=== PATIENT | female | born 1945 | race African-American/Black ===

== ENCOUNTER 2017-02-08 04:31 | Inpatient (IN) | payer OTHER ==
[2017-02-08 04:58] VITALS: BMI 36.6
--- NOTE | 2017-02-08 05:19 | PDOC ---
History of Present Illness - History of Present Illness Initial Comments: 02/08/17 05:36 71 yo F with h/o right hip replacement, left knee replacement, OA, CVA, CKD-III , who presents with right leg pain. Pt. reports right sided lower extremity pain following fall at approximately 1500 ( 02/07). She was up attempting ambulation without assistve device and he she tripped and fell onto right side, landing on carpet. She was assisted up to wheelchair by nursing staff and has remained immobile for the remainder of the day. Fall was unwitnessed. She now complains of right ankle, knee, and hip pain worse with movement, pressure. Denies any new onset weakness, lightheadedness, fevers/chills, N/V, SOB, chest pain, complaints, abdominal complaints, numbness/tingling, neck pain, back pain, loss of bladder/bowel control, or urinary retention . Denies head trauma , or left sided pain.Reports that pain is refractory to medication. Has attempted analgesia with home [place]. Not on anticoagulants. <Wei Pineda - Last Filed: 02/08/17 07:07> <Mitesh Nunez - Last Filed: 02/08/17 19:42> - General Chief Complaint: Pain, Acute Stated Complaint: LEG PAIN Time Seen by Provider: 02/08/17 04:51 Past History - Past Medical History Anemia: No Asthma: No Cancer: Yes (LUNG 2011) Cardiac Disorders: No CVA: Yes ("MINOR" ) COPD: Yes (USES OXYGEN 2L/NC PRN) CHF: No Dementia: No Diabetes: Yes () GI Disorders: Yes (ACID REFLUX,COLITIS,ULCERS) Disorders: Yes (HAD SURGERY FOR KIDNEY STONES) HTN: Yes Hypercholesterolemia: No Liver Disease: No Seizures: No Thyroid Disease: Yes (PARTIAL THYROIDECTOMY 08/02,BENIGN NODULES) - Surgical History Abdominal Surgery: No Appendectomy: Yes Cardiac Surgery: No Cholecystectomy: Yes Lung Surgery: Yes (2012 RIGHT lobectomy for lung cancer,NO CHEMO OR RT) Neurologic Surgery: No Orthopedic Surgery: Yes (rt hip replacement 2009; BILATERAL knee arthroscopy) - Immunization History Immunization Up to Date: Yes - Psycho/Social/Smoking Cessation Hx Anxiety: Yes Suicidal Ideation: No Smoking Status: No Smoking History: Former smoker Have you smoked in the past 12 months: No Number of Cigarettes Smoked Daily: 0 If you are a former smoker, when did you quit?: 4 years ago Information on smoking cessation initiated: Yes Hx Alcohol Use: No Drug/Substance Use Hx: No Substance Use Type: None Hx Substance Use Treatment: No <Wei Pineda - Last Filed: 02/08/17 07:07> <Mitesh Nunez - Last Filed: 02/08/17 19:42> - Past Medical History Allergies/Adverse Reactions: Allergies Allergy/AdvReac Type Severity Reaction Status Date / Time Sulfa (Sulfonamide Allergy Severe Hives Verified 02/08/17 05:10 Antibiotics) Home Medications: Ambulatory Orders Amlodipine Besylate [Norvasc -] 2.5 mg PO DAILY 09/03/15 Ergocalciferol (Vitamin D2) [Drisdol] 50,000 units PO WEEKLY 09/03/15 Exenatide Microspheres [Bydureon] 2 mg SQ Q7D 09/03/15 Ferrous Sulfate [Feosol] 325 mg PO DAILY 09/03/15 Interferon Beta-1A [Avonex] 30 mcg IM WEEKLY 09/03/15 Omeprazole 20 mg PO DAILY 09/03/15 Potassium Chloride 10 meq PO DAILY 09/03/15 Sennosides [Senna] 8.6 mg PO DAILY PRN 09/03/15 Aspirin Coated [Ecotrin -] 81 mg PO DAILY #30 tablet.ec 09/10/15 Docusate Sodium [Colace -] 300 mg PO HS #30 capsule 09/10/15 Furosemide [Lasix -] 20 mg PO DAILY #30 tablet 09/10/15 Losartan Potassium [Cozaar -] 50 mg PO DAILY #30 tablet 09/10/15 Magnesium Oxide 400 mg PO BID #7 tablet 09/10/15 Pantoprazole Sodium [Protonix -] 40 mg PO DAILY #30 tablet.ec 09/10/15 Trazodone HCl [Desyrel -] 100 mg PO HS #30 tablet 09/10/15 Gabapentin [Neurontin -] 400 mg PO Q8H 01/09/17 Hydrocodone/Acetaminophen [[place] 10-325 Tablet] 1 each PO QID PRN #120 tablet MDD 4 01/09/17 Nateglinide [Starlix (Nf)] 120 mg PO TID 01/09/17 Review of Systems - Review of Systems Comments:: 02/08/17 05:46 GENERAL/CONSTITUTIONAL: No fever or chills. No weakness. HEAD, EYES, EARS, NOSE AND THROAT: No change in vision. No ear pain or discharge. No sore throat.- CARDIOVASCULAR: No chest pain or shortness of breath RESPIRATORY: No cough, wheezing, or hemoptysis. GASTROINTESTINAL: No nausea, vomiting, diarrhea or constipation. GENITOURINARY: No dysuria, frequency, or change in urination. MUSCULOSKELETAL: + Arthralgias and myalgias. No neck or back pain. SKIN: No rash NEUROLOGIC: No headache, vertigo, loss of consciousness, or change in strength/ sensation. ENDOCRINE: No increased thirst. No abnormal weight change HEMATOLOGIC/LYMPHATIC: No anemia, easy bleeding, or history of blood clots. ALLERGIC/IMMUNOLOGIC: No hives or skin allergy. <Wei Pineda - Last Filed: 02/08/17 07:07> *Physical Exam - Vital Signs Last Vital Signs Temp Pulse Resp BP Pulse Ox 98.1 F 93 H 18 165/86 96 02/08/17 04:45 02/08/17 04:45 02/08/17 04:45 02/08/17 04:45 02/08/17 04:45 - Physical Exam Comments: 02/08/17 05:46 GENERAL: Awake, alert, and fully oriented, in no acute distress HEAD: No signs of trauma, normocephalic, atraumatic EYES: PERRLA, EOMI, sclera anicteric, conjunctiva clear ENT: Auricles normal inspection, hearing grossly normal, nares patent, oropharynx clear without exudates. Moist mucosa NECK: Normal ROM, supple, no lymphadenopathy, JVD, or masses LUNGS: No distress, speaks full sentences, clear to auscultation bilaterally HEART: Regular rate and rhythm, normal S1 and S2, no murmurs, rubs or gallops, peripheral pulses normal and equal bilaterally. ABDOMEN: Soft, nontender, normoactive bowel sounds. No guarding, no rebound. No masses EXTREMITIES:+ 1+ Pitting edema of BL LE. Painful ttp at BL LE, and right sided hip joint. Unable to palpate LE pulses BL. Absent LE warmth and swelling. Unable to assess gross motor strength in LE d/t pain with movement. Decreased passive ROM d/t pain. Absent bony deformity visualized. Unable to visualize gait. NEUROLOGICAL: Cranial nerves II through XII grossly intact. Normal speech, normal gait, no focal sensorimotor deficits SKIN: Warm, Dry, normal turgor, no rashes or lesions noted. <Wei Pineda - Last Filed: 02/08/17 07:07> - Vital Signs Last Vital Signs Temp Pulse Resp BP Pulse Ox 98.1 F 74 17 148/72 95 02/08/17 11:39 02/08/17 11:39 02/08/17 15:12 02/08/17 11:39 02/08/17 15:12 <DorinaraMitesh - Last Filed: 02/08/17 19:42> Heart Score/ECG Review - Electrocardiogram EKG: Normal - [place]: Normal - QRS Poor R Wave Progression: No Q Wave Present: No - ST and T Early Repolarization: No Non Specific ST-T Wave changes: No - ECG Impressions Normal ECG: Yes <Wei Pineda - Last Filed: 02/08/17 07:07> ED Treatment Course - LABORATORY CBC & Chemistry Diagram: 02/08/17 05:20 02/08/17 05:20 <Wei Pineda - Last Filed: 02/08/17 07:07> - LABORATORY CBC & Chemistry Diagram: 02/08/17 05:20 02/08/17 05:20 - ADDITIONAL ORDERS Additional order review: Laboratory Results 02/08/17 07:40 Urine Color Yellow Urine Appearance Slcloudy Urine pH 6.0 Ur Specific [place] 1.015 Urine Protein Negative Urine Glucose (UA) Negative Urine Ketones Negative Urine Blood Negative Urine Nitrite Positive Urine Bilirubin Negative Urine Urobilinogen Negative Ur Leukocyte Esterase Trace Urine RBC None Urine WBC 3 Ur Epithelial Cells Rare Urine Bacteria Rare Urine Mucus Rare 02/08/17 05:20 RBC 4.37 MCV 84.0 MCHC 32.3 RDW 14.0 MPV 8.2 Neutrophils % Y Lymphocytes % Y - Medications Given in the ED: ED Medications Discontinued Medications Generic Name Dose Route Start Last Admin Trade Name Freq PRN Reason Stop Dose Admin Ceftriaxone Sodium 1 gm/ 100 mls @ 200 mls/hr 02/08/17 08:45 02/08/17 09:27 Dextrose IVPB 02/08/17 09:14 200 mls/hr ONCE ONE Administration Ketorolac Tromethamine 60 mg 02/08/17 05:21 02/08/17 05:41 Toradol Injection - IM 02/08/17 05:22 Not Given ONCE ONE Ketorolac Tromethamine 30 mg 02/08/17 05:36 02/08/17 05:41 Toradol Injection - IVPUSH 02/08/17 05:37 30 mg ONCE ONE Administration Morphine Sulfate 2 mg 02/08/17 07:42 02/08/17 07:57 Morphine Injection - IM 02/08/17 07:43 2 mg ONCE ONE Administration Oxycodone/Acetaminophen 1 combo 02/08/17 11:03 02/08/17 15:29 Percocet 5/325 - PO 02/08/17 11:04 Not Given ONCE STA Oxycodone/Acetaminophen 2 combo 02/08/17 12:10 02/08/17 13:53 Percocet 5/325 - PO 02/08/17 12:11 2 combo ONCE STA Administration <Mitesh Nunez - Last Filed: 02/08/17 19:42> Medical Decision Making - Medical Decision Making 02/08/17 05:50 71 yo F with h/o right hip replacment, left knee replacement, OA, CVA, CKD-III, who presents with right leg pain. Pt. reports right sided ankle, knee, and hip pain following fall at approximately 1500 ( 02/07). No other associated symptoms. Denies head/back trauma or pain. Physical exam was limited d/t pain. Decreased right sided LE passive ROM, with absent bony deformity. Denies anticoagulation. ED Course: - CBC, CMP, PT/INR, UA - EKG - RAD Left Ankle/Foot, Knee, Hip. - Toradol 30 mg IV 02/08/17 06:07 CBC: 18.4 WBC CMP: Unremarkable 02/08/17 06:16 EKG: NSR 02/08/17 07:[address] Perez <Wei Pineda - Last Filed: 02/08/17 07:07> *DC/Admit/Observation/Transfer <Wei Pineda - Last Filed: 02/08/17 07:07> <Mitesh Nunez - Last Filed: 02/08/17 19:42> Diagnosis at time of Disposition: Leukocytosis - Discharge Dispostion Condition at time of disposition: Stable
[2017-02-08] MEDS ORDERED: KETOROLAC TROMETHAMINE 60 MG/2 ML VIAL IM ONE (05:21)
[2017-02-08] MEDS ORDERED: KETOROLAC TROMETHAMINE 30 MG/1 ML VIAL ONE (05:36)
[2017-02-08] MEDS ORDERED: KETOROLAC TROMETHAMINE 30 MG/1 ML VIAL IVPUSH ONE (05:36)
[2017-02-08 05:40] LABS: MCH 27.1 pg (25.7-33.7); MCHC 32.3 g/dl (32.0-36.0); MEAN PLT VOLUME 8.2 fl (7.5-11.1); PLATELET COUNT 403 K/MM3 (134-434); WHITE BLOOD COUNT 18.4 K/mm3 (4.0-10.0)
[2017-02-08 06:03] LABS: INR 1.12 (0.82-1.09); PROTHROMBIN TIME (PATIENT) 12.3 SEC (9.98-11.88)
[2017-02-08 06:06] LABS: ALBUMIN 3.4 g/dl (3.4-5.0); ANION GAP 6 (8-16); BILIRUBIN,TOTAL 0.5 mg/dL (0.2-1.0); CO2 28 mmol/L (21-32); GLUCOSE,RANDOM 113 mg/dL (74-106); SGPT/ALT 41 U/L (12-78); TOT PROT 7.1 g/dl (6.4-8.2)
[2017-02-08 06:07] LABS: ALK PHOS 137 U/L (45-117)
[2017-02-08 06:09] LABS: SGOT/AST 57 U/L (15-37)
--- NOTE | 2017-02-08 06:09 | PDOC ---
Attending Attestation - Resident Resident Name: Wei Pineda - ED Attending Attestation I have performed the following: I have examined & evaluated the patient, The case was reviewed & discussed with the resident, I agree w/resident's findings & plan, Exceptions are as noted - HPI HPI: 02/08/17 06:16 Pt s/p fall c/o pain to left knee and ankle. fall was non-syncopal. - Physicial Exam PE: 02/08/17 06:17 *Physical Exam General Appearance: Yes: Appropriately Dressed. No: Apparent Distress, Intoxicated HEENT: positive: EOMI, KAYLEE, Normal ENT Inspection, Normal Voice, TMs Normal, Pharynx Normal. negative: Pale Conjunctivae, Photophobia, Scleral Icterus (R), Scleral Icterus (L) Neck: positive: Trachea midline, Normal Thyroid, Supple. negative: Tender, Rigid, Carotid bruit, Stridor, Lymphadenopathy (R), Lymphadenopathy (L), Thyromegaly Respiratory/Chest: positive: Lungs Clear, Normal Breath Sounds. negative: Chest Tender, Respiratory Distress, Accessory Muscle Use, Labored Respiration, RES, Crackles, Rales, Rhonchi, Stridor, Wheezing, Dullness Cardiovascular: positive: Regular Rhythm, Regular Rate, S1, S2. negative: Edema , JVD, Murmur, Bradycardia, Tachycardia Vascular Pulses: Dorsalis-Pedis (R): 2+, Doralis-Pedis (L): 2+ Gastrointestinal/Abdominal: positive: Normal Bowel Sounds, Flat, Soft. negative : Tender, Organomegaly, Pulsatile Mass, Increased Bowel Sounds, Decreased BS, Distended, Guarding, Rebound, Hernia, Hepatomegaly, Spleenomegaly Lymphatic: negative: Adenopathy, Tenderness Musculoskeletal: positive: tenderness and swelling to lefl knee and ankle. negative: CVA Tenderness, Decreased Range of Motion Extremity: positive: Normal Capillary Refill, Normal Inspection, Normal Range of Motion, Pelvis Stable. negative: Tender, Pedal Edema, Swelling, Erythema Integumentary: positive: Normal Color, Dry, Warm. negative: Cyanotic, Erythema , Jaundice, Rash Neurologic: positive: house nurse II-XII NML intact, Fully Oriented, Alert, Normal Mood/ Affect, Motor Strength 5/5. negative: EOM Palsy, Facial Droop, Sensory Deficit - Medical Decision Making 02/08/17 06:20 Pt pending official read of films.
--- NOTE | 2017-02-08 07:24 | PDOC ---
*Physical Exam - Vital Signs Last Vital Signs Temp Pulse Resp BP Pulse Ox 98.1 F 93 H 18 165/86 96 02/08/17 04:45 02/08/17 04:45 02/08/17 04:45 02/08/17 04:45 02/08/17 04:45 - Physical Exam General Appearance: Yes: Nourished, Obese Neck: positive: Trachea midline, Supple Extremity: positive: Other (B/L LE edema, 4+ on L, 2+ on R) ED Treatment Course - LABORATORY CBC & Chemistry Diagram: 02/09/17 06:00 02/09/17 06:15 - ADDITIONAL ORDERS Additional order review: Laboratory Results 02/08/17 02/08/17 05:20 05:20 INR 1.12 Sodium 138 Potassium 4.5 Chloride 104 Carbon Dioxide 28 Anion Gap 6 L BUN 10 D Creatinine 1.0 Creat Clearance w eGFR 54.66 Random Glucose 113 H D Calcium 9.0 Total Bilirubin 0.5 D AST 57 H D ALT 41 D Alkaline Phosphatase 137 H Total Protein 7.1 Albumin 3.4 02/08/17 05:20 RBC 4.37 MCV 84.0 MCHC 32.3 RDW 14.0 MPV 8.2 Neutrophils % Y Lymphocytes % Y - Medications Given in the ED: ED Medications Discontinued Medications Generic Name Dose Route Start Last Admin Trade Name Saeq PRN Reason Stop Dose Admin Ketorolac Tromethamine 60 mg 02/08/17 05:21 02/08/17 05:41 Toradol Injection - IM 02/08/17 05:22 Not Given ONCE ONE Ketorolac Tromethamine 30 mg 02/08/17 05:36 02/08/17 05:41 Toradol Injection - IVPUSH 02/08/17 05:37 30 mg ONCE ONE Administration Medical Decision Making - Medical Decision Making 02/08/17 07:24 Patient's CBC significant for leukocytosis (WBC 18.4). UA pending. On PE, patient has B/L LE edema with L > R and patient c/o significant LLE pain , including calf pain, concern for DVT. B/L Doppler U/S ordered. 02/08/17 08:56 Review of patient MAR, shows patient is on Interferon, patient is limited historian, unable to provide information as to her disease. Paged Dr. De Leon ( patient's PCP) who noted that patient has a h/o MS for which she takes Interferon and is under the care of a neurologist. 02/08/17 09:03 Patient's UA Nitrite positive; started on IV Ceftriaxone. Patient admitted to inpatient medicine service under Dr. Menchaca. *DC/Admit/Observation/Transfer Diagnosis at time of Disposition: Leukocytosis - Discharge Dispostion Condition at time of disposition: Stable Admit: Yes - Referrals
[2017-02-08] MEDS ORDERED: morphine CARPU-JECT 2 MG/1 ML DISP.SYRIN IM ONE (07:42)
[2017-02-08] MEDS ORDERED: morphine CARPU-JECT 2 MG/1 ML DISP.SYRIN ONE (07:50)
[2017-02-08 07:53] LABS: URINE APPEARANCE SLCLOUDY; URINE BILIRUBIN NEGATIVE (NEGATIVE); URINE BLOOD NEGATIVE (NEGATIVE); URINE COLOR YELLOW; URINE GLUCOSE (UA) NEGATIVE (NEGATIVE); URINE KETONE NEGATIVE (NEGATIVE); URINE LEUK ESTERASE TRACE (NEGATIVE); URINE NITRITE POSITIVE (NEGATIVE); URINE PROTEIN NEGATIVE (NEGATIVE); URINE UROBILINOGEN NEGATIVE mg/dL (0.2-1.0)
[2017-02-08 08:08] LABS: URINE BACTERIA RARE /hpf (NONE SEEN); URINE MUCUS RARE; URINE WBC 3 /hpf (3-5)
[2017-02-08] MEDS ORDERED: CEFTRIAXONE 1 GM in DEXTROSE 5%-WATER - 100 ML IVPB ONE (08:45)
[2017-02-08 09:00] LABS: PLATELET ESTIMATE ADEQUATE (NORMAL); TOTAL CELLS COUNTED 100
[2017-02-08 09:01] LABS: METAMYELOCYTE 1 % (0-2); MYELOCYTE 1 % (0-2)
[2017-02-08] MEDS ORDERED: CEFTRIAXONE 50 ML ONE (09:24)
--- NOTE | 2017-02-08 11:10 | EKG ---
Test Reason : Blood Pressure : / mmHG Vent. Rate : 077 BPM Atrial Rate : 077 BPM P-R Int : 130 ms QRS Dur : 084 ms QT Int : 398 ms P-R-T Axes : 084 072 069 degrees QTc Int : 450 ms NORMAL SINUS RHYTHM NORMAL ECG WHEN COMPARED WITH ECG OF 03-SEP-2015 14:40, ST NO LONGER ELEVATED IN LATERAL LEADS T WAVE INVERSION NOW EVIDENT IN ANTERIOR LEADS QT HAS LENGTHENED Confirmed by NEMO ALMEIDA, DREW ([id number]) on 02/08/2017 11:10:29 AM Referred By: Confirmed By:DREW CHESTER MD
--- NOTE | 2017-02-08 11:55 | HP ---
Admitting History and Physical - Primary Care Physician PCP: Bran De Leon (Annabi,Iyad) - Admission Chief Complaint: s/p Fall, UTI History of Present Illness: becky Calderon 71 yo female came into [facility] ER S/P unwitnessed fall at home. upon questions, she states she was trying to go from her bedroom to her electric wheelchair early in the morning, when her left knee buckled and she fell. She aj hitting her head but complains of severe Left leg pain. She lives at home alone but has [employer] OPER[employer] 8 hours/ day 7 days/week. She was assisted by her HONE OPERATOR after the fall. Denies any new onset weakness, lightheadedness, fevers/chills, N/V, SOB, chest pain, complaints, abdominal complaints, numbness/tingling, neck pain, back pain, loss of bladder/bowel control, or urinary retention. PCP: Bran De Leon - Past Medical History SILK PRESSER: Yes: 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 Cardiovascular: Yes: HTN Pulmonary: Yes: Asthma, COPD Gastrointestinal: Yes: GERD (using walker at home ) Renal/: Yes: Renal Failure (chronic) Psych: Yes: Depression Musculoskeletal: Yes: Osteoarthritis, Other (DDD) Rheumatology: Yes: Rheumatoid Arthritis Endocrine: Yes: Diabetes Mellitus Additional Past Medical History: Obesity - Past Surgical History Past Surgical History: Yes: Cholecystectomy, Hysterectomy, Joint Replacement ( prior left knee total replacement, Total hip replacement) - Smoking History Smoking history: Former smoker Have you smoked in the past 12 months: No Aproximately how many cigarettes per day: 0 If you are a former smoker, when did you quit?: 4 years ago - Alcohol/Substance Use Hx Alcohol Use: No History of Substance Use: reports: None - Social History ADL: Independent History of Recent Travel: No Home Medications - Allergies Allergies/Adverse Reactions: Allergies Allergy/AdvReac Type Severity Reaction Status Date / Time Sulfa (Sulfonamide Allergy Severe Hives Verified 02/08/17 05:10 Antibiotics) - Home Medications Home Medications: Ambulatory Orders Amlodipine Besylate [Norvasc -] 2.5 mg PO DAILY 09/03/15 Ergocalciferol (Vitamin D2) [Drisdol] 50,000 units PO WEEKLY 09/03/15 Exenatide Microspheres [Bydureon] 2 mg SQ Q7D 09/03/15 Ferrous Sulfate [Feosol] 325 mg PO DAILY 09/03/15 Interferon Beta-1A [Avonex] 30 mcg IM WEEKLY 09/03/15 Omeprazole 20 mg PO DAILY 09/03/15 Potassium Chloride 10 meq PO DAILY 09/03/15 Sennosides [Senna] 8.6 mg PO DAILY PRN 09/03/15 Aspirin Coated [Ecotrin -] 81 mg PO DAILY #30 tablet.ec 09/10/15 Docusate Sodium [Colace -] 300 mg PO HS #30 capsule 09/10/15 Furosemide [Lasix -] 20 mg PO DAILY #30 tablet 09/10/15 Losartan Potassium [Cozaar -] 50 mg PO DAILY #30 tablet 09/10/15 Magnesium Oxide 400 mg PO BID #7 tablet 09/10/15 Pantoprazole Sodium [Protonix -] 40 mg PO DAILY #30 tablet.ec 09/10/15 Trazodone HCl [Desyrel -] 100 mg PO HS #30 tablet 09/10/15 Gabapentin [Neurontin -] 400 mg PO Q8H 01/09/17 Hydrocodone/Acetaminophen [[place] 10-325 Tablet] 1 each PO QID PRN #120 tablet MDD 4 01/09/17 Nateglinide [Starlix (Nf)] 120 mg PO TID 01/09/17 Family Disease History - Family Disease History Family Disease History: CA: Mother (cancer), Other: Brother (pain - arthritis) Review of Systems - Review of Systems Constitutional: reports: Weakness Eyes: reports: No Symptoms HENT: reports: No Symptoms Neck: reports: No Symptoms Cardiovascular: reports: No Symptoms Respiratory: reports: No Symptoms Gastrointestinal: reports: No Symptoms Genitourinary: reports: No Symptoms Breasts: reports: No Symptoms Reported Musculoskeletal: reports: Back Pain, Extremity Pain (LLE), Joint Pain Integumentary: reports: No Symptoms Neurological: reports: No Symptoms Endocrine: reports: No Symptoms Hematology/Lymphatic: reports: No Symptoms Psychiatric: reports: No Symptoms Physical Examination Vital Signs: Vital Signs Temperature 98.1 F 02/08/17 04:45 Pulse Rate 82 02/08/17 07:58 Respiratory Rate 17 02/08/17 07:58 Blood Pressure 143/62 02/08/17 07:58 O2 Sat by Pulse Oximetry (%) 95 02/08/17 07:58 Constitutional: Yes: Well Nourished, No Distress, Anxious Cardiovascular: Yes: Regular Rate and Rhythm Respiratory: Yes: Regular Gastrointestinal: Yes: Normal Bowel Sounds Musculoskeletal: Yes: WNL Peripheral Pulses WNL: No Neurological: Yes: Alert, Oriented Psychiatric: Yes: Alert, Oriented Imaging - Results Chest X-ray: Report Reviewed X-ray: Report Reviewed Problem List - Problems (1) Leukocytosis Assessment/Plan: -likely secondary to UTI -IV abx -ID on board -BC/UC pending Code(s): D72.829 - ELEVATED WHITE BLOOD CELL COUNT, UNSPECIFIED (2) Diabetes Assessment/Plan: -endocrinology consult -on insulin sliding scale -labs in AM Code(s): E11.9 - TYPE 2 DIABETES MELLITUS WITHOUT COMPLICATIONS Qualifiers: Diabetes mellitus type: type 2 (3) Fall at home Assessment/Plan: -production material handler eval -physical therapy Code(s): W19.XXXA - UNSPECIFIED FALL, INITIAL ENCOUNTER Y92.099 - UNSP PLACE IN OTH NON-INSTITUTIONAL RESIDENCE PLACE (4) UTI (urinary tract infection) Assessment/Plan: -IV abc UA positive for nitrites -UC pending Code(s): N39.0 - URINARY TRACT INFECTION, SITE NOT SPECIFIED
[2017-02-08] MEDS ORDERED: FUROSEMIDE 40 MG TABLET (FP) ONE (13:45)
[2017-02-08] MEDS ORDERED: ASPIRIN 81 MG CHEWABLE TABLETS ONE (13:45)
[2017-02-08] MEDS ORDERED: PANTOPRAZOLE 40 MG TABLET (FP) ONE (13:47)
[2017-02-08] MEDS ORDERED: MAGNESIUM OXIDE 400 MG TABLET (FP) ONE (13:48)
[2017-02-08] MEDS ORDERED: amLODIPine BESYLATE 5 MG TABLET (FP) ONE (13:48)
[2017-02-08] MEDS ORDERED: FERROUS SO4 325 MG TABLET (FP) ONE (13:49)
[2017-02-08] MEDS ORDERED: LOSARTAN POTASSIUM 25 MG TABLET ONE (13:49)
[2017-02-08] MEDS ORDERED: GABAPENTIN 100 MG CAPSULE (FP) ONE (13:49)
[2017-02-08] MEDS ORDERED: HEPARIN NA (PORCINE) 5,000 UNITS/ML 1ML VIAL ONE (13:49)
[2017-02-08] MEDS: MAGNESIUM OXIDE 400 MG TABLET (FP) PO SCH ×2 (13:51→21:39)
[2017-02-08] MEDS: PANTOPRAZOLE 40 MG TABLET (FP) PO SCH (13:52)
[2017-02-08] MEDS: ASPIRIN COATED 81 MG TABLET.EC PO SCH (13:55)
[2017-02-08] MEDS: GABAPENTIN 400 MG CAPSULE (FP) PO SCH ×3 (13:56→21:39)
[2017-02-08] MEDS: amLODIPine BESYLATE 2.5 MG TABLET (FP) PO SCH (13:56)
[2017-02-08] MEDS: FUROSEMIDE 20 MG TABLET (FP) PO SCH (13:56)
[2017-02-08] MEDS: HEPARIN NA (PORCINE) 5,000 UNITS/ML 1ML VIAL SQ SCH ×2 (13:56→21:47)
[2017-02-08] MEDS: LOSARTAN POTASSIUM 50 MG TABLET (FP) PO SCH (13:57)
[2017-02-08] MEDS: FERROUS SO4 325 MG TABLET (FP) PO SCH (13:57)
[2017-02-08] MEDS: PANTOPRAZOLE 20 MG TABLET (FP) PO SCH (13:57)
[2017-02-08] MEDS: POTASSIUM CHLORIDE TABS 10 MEQ TABLET.ER (FP) PO SCH (13:58)
[2017-02-08] MEDS ORDERED: POTASSIUM CHLORIDE TABS 10 MEQ TABLET.ER (FP) ONE (14:34)
--- NOTE | 2017-02-08 14:44 | PN ---
Progress Note (short form) - Note Progress Note: ID Consult dictated S/P mechanical fall Leukocytosis R/O sepsis Pending sepsis workup empiric ceftriaxone
--- NOTE | 2017-02-08 15:58 | CONS ---
DATE OF CONSULTATION: 02/08/2017 The patient is a 71-year-old female with a history of multiple sclerosis, history of right total hip replacement and left total knee replacement, evaluated for leukocytosis. The patient was at home, when she was attempting to ambulate. She sustained a mechanical fall, resulting injury to the left side of her body. She states that she was trying to go from her bedroom to her electric wheelchair, her knee buckled and she fell. She denied any head trauma or loss of consciousness. She presented to the emergency room, where x-rays were done. X-ray of the right hip revealed an intact right total hip replacement. No gross fracture was noted in the left hip. As part of her admitting labs, she was noted to have an elevated white blood cell count of 18,000. She complains of left lower extremity pain. In addition, she complains of some lower abdominal pain. She denies any dysuria or hematuria. She denies any chest pain, shortness of breath, cough, or sputum production. No vomiting or diarrhea. Past medical history positive for multiple sclerosis, hypertension, diabetes, history of lung cancer, osteoarthritis, stroke, chronic kidney disease. PAST SURGICAL HISTORY: Status post right total hip replacement, left total knee replacement, partial hysterectomy, right lung lobectomy, cholecystectomy, hysterectomy. Allergies to SULFA. Medications include Norvasc, Feosol, Avonex, omeprazole, aspirin, Lasix, Cozaar, Protonix, Starlix. SOCIAL HISTORY: Resides at home. Former smoker. She has a wheelchair at home. Last hospitalization was in August of 2015. SYSTEMS REVIEW: Neurologic: Positive for multiple sclerosis. Cardiac: Negative chest pain or palpitations. Respiratory: Negative cough or sputum production. Gastrointestinal: Negative vomiting or diarrhea. Genitourinary: Negative for urinary tract infection. LABORATORY DATA: White count 18.4, hematocrit 36.7, platelet count 403. BUN 10, creatinine 1.0, total bilirubin 0.5, alkaline phosphatase 137, AST 57. Urinalysis: 3 white cells. Chest x-ray pending. PHYSICAL EXAMINATION: General: She is awake and alert. She is obese, in no acute distress. Vital Signs: Temperature 98.1. Blood pressure 165/86. Pulse 82, regular. Respirations 18 per minute. Eyes: Sclerae anicteric. Heart Sounds: S1, S2. Lungs: Clear. Poor inspiratory effort. Abdomen: Soft. There is lower abdominal tenderness to palpation. No flank tenderness. Extremities: Positive for edema. The left lower extremity appears to be shortened and externally rotated, tender to manipulation. No calf tenderness is noted. IMPRESSION: 1. Status post mechanical fall with history of joint replacements. 2. Leukocytosis, possible sepsis. 3. Multiple sclerosis. Await culture results. Obtain urine culture, chest x-ray. Empiric antibiotic coverage for possible sepsis, secondary to urinary tract, with ceftriaxone 2 g IV piggyback daily. On review of previous cultures, patient had a bunch-sensitive E coli present in the urine in February 2016, as well as a bunch-resistant Pseudomonas in the urine from August of 2015. MARGARITA NOBLE M.D. [id number]
[2017-02-08] MEDS: oxyCODONE HCL 5 MG TABLET PO PRN ×2 (17:47→21:38)
[2017-02-08] MEDS ORDERED: INSULIN (NOVOLOG) ASPART 100 UNITS/ML 10ML VIAL ONE (18:30)
--- NOTE | 2017-02-08 18:37 | CONSULT ---
Consult Consult Specialty:: ENDOCRINE Referred by:: KASSANDRA WEEKS NP Reason for Consultation:: DIABETES MELLITUS - History of Present Illness Chief Complaint: FALL AT HOME History of Present Illness: 71 yo F with h/o right hip replacement, left knee replacement, OA, CVA, CKD-III , who presents with right leg pain. Pt. reports right sided lower extremity pain following fall at approximately 1500 ( 02/07). She was up attempting ambulation without assistve device and he she tripped and fell onto right side, landing on carpet. She was assisted up to wheelchair by nursing staff and has remained immobile for the remainder of the day. Fall was unwitnessed. Has history of previous fall,chronic back pain on pain medication,denies hypoglycemia - History Source History Provided By: Patient - Past Medical History FLAME CUTTER: Yes: 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 Cardio/Vascular: Yes: HTN Pulmonary: Yes: Asthma, COPD Gastrointestinal: Yes: GERD (using walker at home ) Renal/: Yes: Renal Failure (chronic) ...: No Psych: Yes: Depression Musculoskeletal: Yes: Osteoarthritis, Other (DDD) Rheumatology: Yes: Rheumatoid Arthritis Endocrine: Yes: Diabetes Mellitus Additional Medical History: as in HPI, morbidly obese - Past Surgical History Past Surgical History: Yes: Cholecystectomy, Hysterectomy, Joint Replacement ( prior left knee total replacement, Total hip replacement) - Alcohol/Substance Use Hx Alcohol Use: No History of Substance Use: reports: None - Smoking History Smoking history: Former smoker Have you smoked in the past 12 months: No Aproximately how many cigarettes per day: 0 If you are a former smoker, when did you quit?: 4 years ago - Social History Usual Living Arrangement: With Significant Other ADL: Independent History of Recent Travel: No Home Medications - Allergies Allergies/Adverse Reactions: Allergies Allergy/AdvReac Type Severity Reaction Status Date / Time Sulfa (Sulfonamide Allergy Severe Hives Verified 02/08/17 05:10 Antibiotics) - Home Medications Home Medications: Ambulatory Orders Amlodipine Besylate [Norvasc -] 2.5 mg PO DAILY 09/03/15 Ergocalciferol (Vitamin D2) [Drisdol] 50,000 units PO WEEKLY 09/03/15 Exenatide Microspheres [Bydureon] 2 mg SQ Q7D 09/03/15 Ferrous Sulfate [Feosol] 325 mg PO DAILY 09/03/15 Interferon Beta-1A [Avonex] 30 mcg IM WEEKLY 09/03/15 Omeprazole 20 mg PO DAILY 09/03/15 Potassium Chloride 10 meq PO DAILY 09/03/15 Sennosides [Senna] 8.6 mg PO DAILY PRN 09/03/15 Aspirin Coated [Ecotrin -] 81 mg PO DAILY #30 tablet.ec 09/10/15 Docusate Sodium [Colace -] 300 mg PO HS #30 capsule 09/10/15 Furosemide [Lasix -] 20 mg PO DAILY #30 tablet 09/10/15 Losartan Potassium [Cozaar -] 50 mg PO DAILY #30 tablet 09/10/15 Magnesium Oxide 400 mg PO BID #7 tablet 09/10/15 Pantoprazole Sodium [Protonix -] 40 mg PO DAILY #30 tablet.ec 09/10/15 Trazodone HCl [Desyrel -] 100 mg PO HS #30 tablet 09/10/15 Gabapentin [Neurontin -] 400 mg PO Q8H 01/09/17 Hydrocodone/Acetaminophen [[place] 10-325 Tablet] 1 each PO QID PRN #120 tablet MDD 4 01/09/17 Nateglinide [Starlix (Nf)] 120 mg PO TID 01/09/17 Family Disease History - Family Disease History Family Disease History: CA: Mother (cancer), Other: Brother (pain - arthritis) Review of Systems - Review of Systems Constitutional: reports: Lethargy Eyes: reports: No Symptoms HENT: reports: No Symptoms Neck: reports: Decreased ROM Cardiovascular: reports: Palpitations, Shortness of Breath Respiratory: reports: Exercise Intolerance, SOB, SOB on Exertion Gastrointestinal: reports: Constipation, Nausea Genitourinary: reports: No Symptoms Breasts: reports: No Symptoms Reported Musculoskeletal: reports: Extremity Pain, Joint Swelling, Muscle Pain, Muscle Cramps Integumentary: reports: No Symptoms Neurological: reports: Unsteady Gait, Weakness Endocrine: reports: Increased Hunger Physical Exam Vital Signs: Vital Signs Temperature 98.1 F 02/08/17 11:39 Pulse Rate 74 02/08/17 11:39 Respiratory Rate 02/08/17 15:12 Blood Pressure 148/72 02/08/17 11:39 O2 Sat by Pulse Oximetry (%) 95 02/08/17 15:12 Constitutional: Yes: Anxious Eyes: Yes: EOM Intact HENT: Yes: Normocephalic Neck: Yes: Trachea Midline Cardiovascular: Yes: Regular Rate and Rhythm Respiratory: Yes: CTA Bilaterally Gastrointestinal: Yes: Normal Bowel Sounds ...Rectal Exam: Yes: Deferred Renal/: Yes: WNL Breast(s): Yes: WNL Musculoskeletal: Yes: Back Pain, Joint Stiffness, Joint Swelling, Muscle Pain, Muscle Weakness Extremities: Yes: WNL Edema: LLE: 1+, RLE: 1+ Neurological: Yes: Alert, Oriented Problem List - Problems (1) Anxiety and depression Code(s): F41.9 - ANXIETY DISORDER, UNSPECIFIED F32.9 - MAJOR DEPRESSIVE DISORDER, SINGLE EPISODE, UNSPECIFIED (2) Anxiety disorder Code(s): F41.9 - ANXIETY DISORDER, UNSPECIFIED Qualifiers: 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 Assessment/Plan Current Active Problems Fall at home (Acute) Leukocytosis (Acute) UTI (urinary tract infection) (Acute) diabetes mellitus hyperglycemia htn \ashd osteoarthritis chronic pain Abnormal Lab Results 02/08/17 02/08/17 05:20 05:20 WBC 18.4 H D Anion Gap 6 L Random Glucose 113 H D AST 57 H D Alkaline Phosphatase 137 H Laboratory Results - last 24 hr 02/08/17 02/08/17 02/08/17 05:20 05:20 05:20 WBC 18.4 H D RBC 4.37 Hgb 11.8 Hct 36.7 MCV 84.0 MCH 27.1 MCHC 32.3 RDW 14.0 Plt Count 403 MPV 8.2 Total Counted 100 Neutrophils % Y Neutrophils % (Manual) 74 Lymphocytes % Y Lymphocytes % (Manual) 16 Monocytes % (Manual) 8 Myelocytes % (Man) 1 Platelet Estimate Adequate INR 1.12 Sodium 138 Potassium 4.5 Chloride 104 Carbon Dioxide 28 Anion Gap 6 L BUN 10 D Creatinine 1.0 Creat Clearance w eGFR 54.66 POC Glucometer Random Glucose 113 H D Calcium 9.0 Total Bilirubin 0.5 D AST 57 H D ALT 41 D Alkaline Phosphatase 137 H Total Protein 7.1 Albumin 3.4 Urine Color Urine Appearance Urine pH Ur Specific Catron Urine Protein Urine Glucose (UA) Urine Ketones Urine Blood Urine Nitrite Urine Bilirubin Urine Urobilinogen Ur Leukocyte Esterase Urine RBC Urine WBC Ur Epithelial Cells Urine Bacteria Urine Mucus 02/08/17 02/08/17 07:40 16:41 WBC RBC Hgb Hct MCV MCH MCHC RDW Plt Count MPV Total Counted Neutrophils % Neutrophils % (Manual) Lymphocytes % Lymphocytes % (Manual) Monocytes % (Manual) Myelocytes % (Man) Platelet Estimate INR Sodium Potassium Chloride Carbon Dioxide Anion Gap BUN Creatinine Creat Clearance w eGFR POC Glucometer 85 Random Glucose Calcium Total Bilirubin AST ALT Alkaline Phosphatase Total Protein Albumin Urine Color Yellow Urine Appearance Slcloudy Urine pH 6.0 Ur Specific Catron 1.015 Urine Protein Negative Urine Glucose (UA) Negative Urine Ketones Negative Urine Blood Negative Urine Nitrite Positive Urine Bilirubin Negative Urine Urobilinogen Negative Ur Leukocyte Esterase Trace Urine RBC None Urine WBC 3 Ur Epithelial Cells Rare Urine Bacteria Rare Urine Mucus Rare plan: bgm novolog scale coverage [id number] [id number] Current Medications Generic Name Dose Route Start Last Admin Trade Name Freq PRN Reason Stop Dose Admin Acetaminophen 650 mg 02/08/17 16:35 Tylenol - PO Q4H PRN FEVER OR PAIN Amlodipine Besylate 2.5 mg 02/08/17 11:15 02/08/17 13:56 Norvasc - PO 2.5 mg DAILY ROSALIE Administration Aspirin 81 mg 02/08/17 11:15 02/08/17 13:55 Ecotrin - PO 81 mg DAILY ROSALIE Administration Docusate Sodium 300 mg 02/08/17 22:00 Colace - PO HS ROSALIE Ferrous Sulfate 325 mg 02/08/17 12:15 02/08/17 13:57 Feosol - PO 325 mg DAILY ROSALIE Administration Furosemide 20 mg 02/08/17 11:15 02/08/17 13:56 Lasix - PO 20 mg DAILY ROSALIE Administration Gabapentin 400 mg 02/08/17 11:15 02/08/17 14:04 Neurontin - PO Not Given TID ROSALIE Heparin Sodium (Porcine) 5,000 unit 02/08/17 11:45 02/08/17 13:56 Heparin - SQ 5,000 unit BID ROSALIE Administration Ceftriaxone Sodium 2 gm/ 100 mls @ 200 mls/hr 02/09/17 10:00 Dextrose IVPB DAILY [facility] Insulin Aspart 1 vial 02/08/17 22:00 Novolog Vial Sliding Scale - SQ ACHS [facility] Protocol Losartan Potassium 50 mg 02/08/17 12:15 02/08/17 13:57 Cozaar - PO 50 mg DAILY ROSALIE Administration Magnesium Oxide 400 mg 02/08/17 12:15 02/08/17 13:51 Mag-Ox - PO 400 mg BID ROSALIE Administration Non-Formulary Medication 120 mg 02/08/17 16:30 Nateglinide PO TIDAC ROSALIE Oxycodone HCl 10 mg 02/08/17 16:35 02/08/17 17:47 Roxicodone - PO 10 mg Q4H PRN Administration Pantoprazole Sodium 20 mg 02/08/17 12:15 02/08/17 13:57 Protonix - PO 20 mg DAILY ROSALIE Administration Pantoprazole Sodium 40 mg 02/08/17 12:15 02/08/17 13:52 Protonix - PO 40 mg DAILY ROSALIE Administration Potassium Chloride 10 meq 02/08/17 12:30 02/08/17 13:58 K-Dur - PO 10 meq DAILY ROSALIE Administration Senna 1 tab 02/08/17 11:04 Senna - PO DAILY PRN CONSTIPATION Trazodone HCl 100 mg 02/08/17 22:00 Desyrel - PO HS ROSALIE
[2017-02-08] MEDS: traZODone HCL 50 MG TABLET (FP) PO SCH (21:38)
[2017-02-08] MEDS: DOCUSATE SODIUM 100 MG CAPSULE (FP) PO SCH (21:39)
[2017-02-08] MEDS: INSULIN SLIDING SCALE (NOVOLOG) 1 VIAL SQ SCH (21:44)
[2017-02-09] MEDS: oxyCODONE HCL 5 MG TABLET PO PRN ×5 (01:55→18:57)
[2017-02-09] MEDS: GABAPENTIN 400 MG CAPSULE (FP) PO SCH ×3 (06:13→21:13)
[2017-02-09] MEDS: INSULIN SLIDING SCALE (NOVOLOG) 1 VIAL SQ SCH (06:13)
[2017-02-09 07:31] LABS: EOSINOPHIL 0.9 % (0-4.5); MCHC 32.1 g/dl (32.0-36.0); MEAN CELL VOLUME 83.9 fl (80-96); MEAN PLT VOLUME 8.3 fl (7.5-11.1); NEUTROPHILS 68.4 % (42.8-82.8); RDW 13.9 % (11.6-15.6); WHITE BLOOD COUNT 17.4 K/mm3 (4.0-10.0)
[2017-02-09 08:05] LABS: ALK PHOS 133 U/L (45-117); ANION GAP 9 (8-16); BILIRUBIN,TOTAL 0.7 mg/dL (0.2-1.0); CALCIUM 8.4 mg/dL (8.5-10.1); CO2 28 mmol/L (21-32); CREATININE 1.2 mg/dL (0.55-1.02); GLUCOSE,RANDOM 119 mg/dL (74-106); SGOT/AST 30 U/L (15-37); SGPT/ALT 32 U/L (12-78); TOT PROT 6.5 g/dl (6.4-8.2)
[2017-02-09] MEDS ORDERED: DEXTROSE 5%-WATER 100 ML IVPB ONE (09:19)
[2017-02-09] MEDS: PANTOPRAZOLE 20 MG TABLET (FP) PO SCH (09:31)
[2017-02-09] MEDS: MAGNESIUM OXIDE 400 MG TABLET (FP) PO SCH ×2 (09:31→21:13)
[2017-02-09] MEDS: POTASSIUM CHLORIDE TABS 10 MEQ TABLET.ER (FP) PO SCH (09:31)
[2017-02-09] MEDS: amLODIPine BESYLATE 2.5 MG TABLET (FP) PO SCH (09:31)
[2017-02-09] MEDS: FUROSEMIDE 20 MG TABLET (FP) PO SCH (09:31)
[2017-02-09] MEDS: PANTOPRAZOLE 40 MG TABLET (FP) PO SCH (09:31)
[2017-02-09] MEDS: LOSARTAN POTASSIUM 50 MG TABLET (FP) PO SCH (09:31)
[2017-02-09] MEDS: CEFTRIAXONE 2 GM in DEXTROSE 5%-WATER 100 ML IVPB SCH (09:31)
[2017-02-09] MEDS: ASPIRIN COATED 81 MG TABLET.EC PO SCH (09:31)
[2017-02-09] MEDS: FERROUS SO4 325 MG TABLET (FP) PO SCH (09:31)
[2017-02-09] MEDS: HEPARIN NA (PORCINE) 5,000 UNITS/ML 1ML VIAL SQ SCH ×2 (09:32→21:13)
--- NOTE | 2017-02-09 09:51 | PN ---
Progress Note, Physician Chief Complaint: Fall, UTI - Current Medication List Current Medications: Active Medications Acetaminophen (Tylenol -) 650 mg PO Q4H PRN PRN Reason: FEVER OR PAIN Amlodipine Besylate (Norvasc -) 2.5 mg PO DAILY [facility] Last Admin: 02/09/17 09:31 Dose: 2.5 mg Aspirin (Ecotrin -) 81 mg PO DAILY [facility] Last Admin: 02/09/17 09:31 Dose: 81 mg Docusate Sodium (Colace -) 300 mg PO HS [facility] Last Admin: 02/08/17 21:39 Dose: 300 mg Ferrous Sulfate (Feosol -) 325 mg PO DAILY [facility] Last Admin: 02/09/17 09:31 Dose: 325 mg Furosemide (Lasix -) 20 mg PO DAILY [facility] Last Admin: 02/09/17 09:31 Dose: 20 mg Gabapentin (Neurontin -) 400 mg PO TID [facility] Last Admin: 02/09/17 06:13 Dose: 400 mg Heparin Sodium (Porcine) (Heparin -) 5,000 unit SQ BID [facility] Last Admin: 02/09/17 09:32 Dose: 5,000 unit Ceftriaxone Sodium 2 gm/ (Dextrose) 100 mls @ 200 mls/hr IVPB DAILY [facility] Last Admin: 02/09/17 09:31 Dose: 200 mls/hr Losartan Potassium (Cozaar -) 50 mg PO DAILY [facility] Last Admin: 02/09/17 09:31 Dose: 50 mg Magnesium Oxide (Mag-Ox -) 400 mg PO BID [facility] Last Admin: 02/09/17 09:31 Dose: 400 mg Oxycodone HCl (Roxicodone -) 10 mg PO Q4H PRN Last Admin: 02/09/17 06:13 Dose: 10 mg Pantoprazole Sodium (Protonix -) 20 mg PO DAILY [facility] Last Admin: 02/09/17 09:31 Dose: 20 mg Pantoprazole Sodium (Protonix -) 40 mg PO DAILY [facility] Last Admin: 02/09/17 09:31 Dose: 40 mg Potassium Chloride (K-Dur -) 10 meq PO DAILY [facility] Last Admin: 02/09/17 09:31 Dose: 10 meq Senna (Senna -) 1 tab PO DAILY PRN PRN Reason: CONSTIPATION Trazodone HCl (Desyrel -) 100 mg PO HS [facility] Last Admin: 02/08/17 21:38 Dose: 100 mg - Objective Vital Signs: Vital Signs Temperature 100.1 F H 02/09/17 06:00 Pulse Rate 90 02/09/17 06:00 Respiratory Rate 18 02/09/17 06:00 Blood Pressure 128/61 02/09/17 06:00 O2 Sat by Pulse Oximetry (%) 97 02/08/17 22:00 Constitutional: Yes: Well Nourished, No Distress, Calm Cardiovascular: Yes: Regular Rate and Rhythm Respiratory: Yes: Regular Gastrointestinal: Yes: Normal Bowel Sounds Labs: CBC, BMP 02/09/17 06:00 02/09/17 06:15 INR, PTT INR 1.12 (0.82-1.09) 02/08/17 05:20 Problem List - Problems (1) Leukocytosis Assessment/Plan: -likely secondary to UTI -IV abx -ID on board -BC/UC pending Code(s): D72.829 - ELEVATED WHITE BLOOD CELL COUNT, UNSPECIFIED (2) Diabetes Assessment/Plan: -endocrinology consult -Hg A1c at 5.3 -D/C insulin sliding scale -hold starlix -dietary glycemic control -labs in AM Code(s): E11.9 - TYPE 2 DIABETES MELLITUS WITHOUT COMPLICATIONS Qualifiers: Diabetes mellitus type: type 2 (3) Fall at home 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
[2017-02-09 10:22] LABS: PLATELET COMMENT2 FEW LARGE PLTS; PLATELET COUNT 362 K/MM3 (134-434); PLATELET ESTIMATE ADEQUATE (NORMAL)
--- NOTE | 2017-02-09 14:02 | PN ---
Progress Note, Physician History of Present Illness: Awake, alert Complains of L foot pain Unable to move L LE without pain No c/o abdominal pain. No dysuria Low grade temp. WBC remains elevated BC (-) Urine c/s pending - Current Medication List Current Medications: Active Medications Acetaminophen (Tylenol -) 650 mg PO Q4H PRN PRN Reason: FEVER OR PAIN Amlodipine Besylate (Norvasc -) 2.5 mg PO DAILY [facility] Last Admin: 02/09/17 09:31 Dose: 2.5 mg Aspirin (Ecotrin -) 81 mg PO DAILY [facility] Last Admin: 02/09/17 09:31 Dose: 81 mg Docusate Sodium (Colace -) 300 mg PO HS [facility] Last Admin: 02/08/17 21:39 Dose: 300 mg Ferrous Sulfate (Feosol -) 325 mg PO DAILY [facility] Last Admin: 02/09/17 09:31 Dose: 325 mg Furosemide (Lasix -) 20 mg PO DAILY [facility] Last Admin: 02/09/17 09:31 Dose: 20 mg Gabapentin (Neurontin -) 400 mg PO TID [facility] Last Admin: 02/09/17 06:13 Dose: 400 mg Heparin Sodium (Porcine) (Heparin -) 5,000 unit SQ BID [facility] Last Admin: 02/09/17 09:32 Dose: 5,000 unit Ceftriaxone Sodium 2 gm/ (Dextrose) 100 mls @ 200 mls/hr IVPB DAILY [facility] Last Admin: 02/09/17 09:31 Dose: 200 mls/hr Losartan Potassium (Cozaar -) 50 mg PO DAILY [facility] Last Admin: 02/09/17 09:31 Dose: 50 mg Magnesium Oxide (Mag-Ox -) 400 mg PO BID [facility] Last Admin: 02/09/17 09:31 Dose: 400 mg Oxycodone HCl (Roxicodone -) 10 mg PO Q4H PRN Last Admin: 02/09/17 10:22 Dose: 10 mg Pantoprazole Sodium (Protonix -) 20 mg PO DAILY [facility] Last Admin: 02/09/17 09:31 Dose: 20 mg Pantoprazole Sodium (Protonix -) 40 mg PO DAILY [facility] Last Admin: 02/09/17 09:31 Dose: 40 mg Potassium Chloride (K-Dur -) 10 meq PO DAILY [facility] Last Admin: 02/09/17 09:31 Dose: 10 meq Senna (Senna -) 1 tab PO DAILY PRN PRN Reason: CONSTIPATION Trazodone HCl (Desyrel -) 100 mg PO HS [facility] Last Admin: 02/08/17 21:38 Dose: 100 mg - Objective Vital Signs: Vital Signs Temperature 98.2 F 02/09/17 10:00 Pulse Rate 80 02/09/17 10:00 Respiratory Rate 18 02/09/17 10:00 Blood Pressure 135/65 02/09/17 10:00 O2 Sat by Pulse Oximetry (%) 98 02/09/17 10:00 Constitutional: Yes: No Distress, Obese Eyes: Yes: Conjunctiva Clear Cardiovascular: Yes: Regular Rate and Rhythm, S1, S2 Respiratory: Yes: CTA Bilaterally, Diminished Gastrointestinal: Yes: Normal Bowel Sounds, Soft, Abdomen, Obese. No: Tenderness Extremities: Yes: Other (L LE seems shortened and externally rotated) Edema: Yes Labs: CBC, BMP 02/09/17 06:00 02/09/17 06:15 INR, PTT INR 1.12 (0.82-1.09) 02/08/17 05:20 Assessment/Plan S/P fall Possible L hip fracture UTI Leukocytosis sepsis v. leukemoid reaction ( ? hip fracture/hematoma) Fever/ leukocytosis MS Await c/s Continue ceftriaxone CT L hip
[2017-02-09] MEDS: PATIENT'S OWN MEDICATION (NON-FORMULARY) (Nateglinide 120 MG) PO SCH ×2 (16:36→17:50)
[2017-02-09] MEDS ORDERED: diphenhydrAMINE HCL 25 MG CAPSULE (FP) PO ONE (20:45)
[2017-02-09] MEDS: DOCUSATE SODIUM 100 MG CAPSULE (FP) PO SCH (21:12)
[2017-02-09] MEDS: traZODone HCL 50 MG TABLET (FP) PO SCH (21:13)
[2017-02-10] MEDS: GABAPENTIN 400 MG CAPSULE (FP) PO SCH ×3 (05:42→21:32)
[2017-02-10] MEDS: oxyCODONE HCL 5 MG TABLET PO PRN ×4 (05:43→18:49)
[2017-02-10] MEDS ORDERED: PT OWN MED DRAWER 7, Y5N ONE (09:04)
[2017-02-10] MEDS ORDERED: DEXTROSE 5%-WATER 100 ML IVPB ONE (09:04)
[2017-02-10] MEDS: FERROUS SO4 325 MG TABLET (FP) PO SCH (09:15)
[2017-02-10] MEDS: amLODIPine BESYLATE 2.5 MG TABLET (FP) PO SCH (09:15)
[2017-02-10] MEDS: ASPIRIN COATED 81 MG TABLET.EC PO SCH (09:15)
[2017-02-10] MEDS: HEPARIN NA (PORCINE) 5,000 UNITS/ML 1ML VIAL SQ SCH ×2 (09:15→21:32)
[2017-02-10] MEDS: POTASSIUM CHLORIDE TABS 10 MEQ TABLET.ER (FP) PO SCH (09:15)
[2017-02-10] MEDS: PANTOPRAZOLE 40 MG TABLET (FP) PO SCH (09:15)
[2017-02-10] MEDS: PANTOPRAZOLE 20 MG TABLET (FP) PO SCH (09:15)
[2017-02-10] MEDS: FUROSEMIDE 20 MG TABLET (FP) PO SCH (09:15)
[2017-02-10] MEDS: LOSARTAN POTASSIUM 50 MG TABLET (FP) PO SCH (09:15)
[2017-02-10] MEDS: MAGNESIUM OXIDE 400 MG TABLET (FP) PO SCH ×2 (09:15→21:32)
[2017-02-10] MEDS: ACETAMINOPHEN 325 MG TABLET (FP) PO PRN (09:17)
[2017-02-10] MEDS: CEFTRIAXONE 2 GM in DEXTROSE 5%-WATER 100 ML IVPB SCH (09:18)
[2017-02-10 10:44] LABS: BASOPHIL 1.1 % (0-2.0); MCH 27.1 pg (25.7-33.7); MCHC 31.9 g/dl (32.0-36.0); MEAN CELL VOLUME 85.1 fl (80-96); MEAN PLT VOLUME 8.5 fl (7.5-11.1); NEUTROPHILS 72.6 % (42.8-82.8); PLATELET COUNT 337 K/MM3 (134-434); RDW 13.9 % (11.6-15.6); WHITE BLOOD COUNT 15.1 K/mm3 (4.0-10.0)
[2017-02-10 10:58] LABS: ALBUMIN 2.7 g/dl (3.4-5.0); ALK PHOS 122 U/L (45-117); ANION GAP 8 (8-16); BILIRUBIN,TOTAL 0.5 mg/dL (0.2-1.0); CO2 31 mmol/L (21-32); CREATININE 1.3 mg/dL (0.55-1.02); GLUCOSE,RANDOM 143 mg/dL (74-106); SGOT/AST 23 U/L (15-37); SGPT/ALT 25 U/L (12-78); TOT PROT 6.2 g/dl (6.4-8.2)
--- NOTE | 2017-02-10 11:44 | CONSULT ---
Consult - text type - Consultation Consultation Note: Podiatry Consultation: 71 year old F, history of MS, presents for admission for fall at home. Patient uses motorized wheelchair majority of the time, however she walked a short distance while at home, her knee locked and fell on her left side. Has significant pain to the LLE. Xrays, CT was performed. She denies F/V/N/C/SOB/ CP. PMHx: MS, HTN, HLP, DM, CKD, RA, depression Meds: noted in chart ALL: sulfa UNA: L foot: pedal pulses palpable, TG wnl, CFT brisk to all toes. There is significant tenderness to the lateral aspect of the ankle and lateral calcaneus. There is no evidence of fracture blistering. There is no evidence of ecchymosis. There is significant tenderness on ROM ankle and the ankle is guarded and restrictive. The patient lays externally rotated. There are no open wounds, no ascending erythema, no signs of active infection. L foot XR: no gross evidence of fx L foot/ankle CT: non-displaced lateral malleolar fracture, intra-articular anterior process fracture, mildly displaced lateral cuneiform fracture Imp: 71 year old MS, DM F with L ankle, calcaneal fracture 1. Non-weightbearing LLE 2. Posterior splint, ice and elevation 3. Discussed case with Dr. Rivera from Orthopedics. Recommended non-operative management given the fact that patient is non-ambulator in the community. She does have motorized wheelchair which she uses 4. Upon discharge will need f/u with Orthopedics for further management. 5. No acute podiatric intervention. Management of UTI as per ID. 6. Thank you for the courtesy of this consultation. Tristen Mcknight DPM
[2017-02-10] MEDS ORDERED: diphenhydrAMINE HCL 50 MG CAPSULE PO PRN (12:35)
[2017-02-10] MEDS ORDERED: diphenhydrAMINE HCL 25 MG CAPSULE (FP) PO ONE (13:25)
--- NOTE | 2017-02-10 19:12 | PN ---
Progress Note, Physician Chief Complaint: Fall, UTI History of Present Illness: NAD, in bed, left posterior splint seen by podiatry CT reviewed on IV abx - Current Medication List Current Medications: Active Medications Acetaminophen (Tylenol -) 650 mg PO Q4H PRN PRN Reason: FEVER OR PAIN Last Admin: 02/10/17 09:17 Dose: 650 mg Amlodipine Besylate (Norvasc -) 2.5 mg PO DAILY [facility] Last Admin: 02/10/17 09:15 Dose: 2.5 mg Aspirin (Ecotrin -) 81 mg PO DAILY [facility] Last Admin: 02/10/17 09:15 Dose: 81 mg Diphenhydramine HCl (Benadryl -) 50 mg PO TID PRN PRN Reason: FOR ITCHING Docusate Sodium (Colace -) 300 mg PO HS [facility] Last Admin: 02/09/17 21:12 Dose: 300 mg Ferrous Sulfate (Feosol -) 325 mg PO DAILY [facility] Last Admin: 02/10/17 09:15 Dose: 325 mg Furosemide (Lasix -) 20 mg PO DAILY [facility] Last Admin: 02/10/17 09:15 Dose: 20 mg Gabapentin (Neurontin -) 400 mg PO TID [facility] Last Admin: 02/10/17 14:30 Dose: 400 mg Heparin Sodium (Porcine) (Heparin -) 5,000 unit SQ BID [facility] Last Admin: 02/10/17 09:15 Dose: 5,000 unit Ceftriaxone Sodium 2 gm/ (Dextrose) 100 mls @ 200 mls/hr IVPB DAILY [facility] Last Admin: 02/10/17 09:18 Dose: 200 mls/hr Losartan Potassium (Cozaar -) 50 mg PO DAILY [facility] Last Admin: 02/10/17 09:15 Dose: 50 mg Magnesium Oxide (Mag-Ox -) 400 mg PO BID [facility] Last Admin: 02/10/17 09:15 Dose: 400 mg Oxycodone HCl (Roxicodone -) 10 mg PO Q4H PRN Last Admin: 02/10/17 18:49 Dose: 10 mg Pantoprazole Sodium (Protonix -) 20 mg PO DAILY [facility] Last Admin: 02/10/17 09:15 Dose: 20 mg Pantoprazole Sodium (Protonix -) 40 mg PO DAILY [facility] Last Admin: 02/10/17 09:15 Dose: 40 mg Potassium Chloride (K-Dur -) 10 meq PO DAILY [facility] Last Admin: 02/10/17 09:15 Dose: 10 meq Senna (Senna -) 1 tab PO DAILY PRN PRN Reason: CONSTIPATION Trazodone HCl (Desyrel -) 100 mg PO HS [facility] Last Admin: 02/09/17 21:13 Dose: 100 mg - Objective Vital Signs: Vital Signs Temperature 98.9 F 02/10/17 18:00 Pulse Rate 82 02/10/17 18:00 Respiratory Rate 18 02/10/17 18:00 Blood Pressure 110/52 02/10/17 18:00 O2 Sat by Pulse Oximetry (%) 97 02/10/17 09:00 Constitutional: Yes: Well Nourished, No Distress, Calm Cardiovascular: Yes: Regular Rate and Rhythm Respiratory: Yes: Regular Gastrointestinal: Yes: Normal Bowel Sounds Musculoskeletal: Yes: Muscle Pain (Left foot) Edema: LLE: 1+ Peripheral Pulses WNL: Yes Neurological: Yes: Alert, Oriented Psychiatric: Yes: Alert, Oriented Labs: CBC, BMP 02/10/17 10:13 02/10/17 10:13 INR, PTT INR 1.12 (0.82-1.09) 02/08/17 05:20 Problem List - Problems (1) Leukocytosis Assessment/Plan: -likely secondary to UTI -IV abx -ID on board -UC final no growth -BC preliminary no growth Code(s): D72.829 - ELEVATED WHITE BLOOD CELL COUNT, UNSPECIFIED (2) Diabetes Assessment/Plan: -endocrinology consult -Hg A1c at 5.3 -D/C insulin sliding scale -hold starlix -dietary glycemic control -labs in AM Code(s): E11.9 - TYPE 2 DIABETES MELLITUS WITHOUT COMPLICATIONS Qualifiers: Diabetes mellitus type: type 2 (3) Fall at home 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/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 Code(s): W19.XXXA - UNSPECIFIED FALL, INITIAL ENCOUNTER Y92.099 - UNSP PLACE IN [place] NON-INSTITUTIONAL RESIDENCE PLACE (4) UTI (urinary tract infection) Assessment/Plan: -IV abc UA positive for nitrites -UC pending Code(s): N39.0 - URINARY TRACT INFECTION, SITE NOT SPECIFIED (5) Lateral malleolar fracture Code(s): S82.63XA - DISP FX OF LATERAL MALLEOLUS OF UNSP FIBULA, INIT Qualifiers: Fracture type: closed Fracture alignment: nondisplaced Laterality: left (6) Closed intra-articular fracture of calcaneus Assessment/Plan: intra articular anterior process fracture Code(s): S92.063A - DISPLACED INTRAARTICULAR FRACTURE OF UNSP CALCANEUS, INIT (7) Fracture of lateral cuneiform bone of left foot Assessment/Plan: mildly displaced Code(s): S92.222A - DISP FX OF LATERAL CUNEIFORM OF LEFT FOOT, INIT FOR CLOS FX Qualifiers: Fracture type: closed Fracture alignment: displaced Assessment/Plan pain management see problem list
[2017-02-10] MEDS: DOCUSATE SODIUM 100 MG CAPSULE (FP) PO SCH (21:32)
[2017-02-10] MEDS: diphenhydrAMINE HCL 25 MG CAPSULE (FP) PO PRN (21:32)
[2017-02-10] MEDS: traZODone HCL 50 MG TABLET (FP) PO SCH (21:32)
[2017-02-11] MEDS: oxyCODONE HCL 5 MG TABLET PO PRN ×4 (04:45→20:27)
[2017-02-11] MEDS: diphenhydrAMINE HCL 25 MG CAPSULE (FP) PO PRN ×3 (04:51→21:33)
[2017-02-11] MEDS: GABAPENTIN 400 MG CAPSULE (FP) PO SCH ×3 (06:11→21:24)
[2017-02-11] MEDS ORDERED: DEXTROSE 5%-WATER 100 ML IVPB ONE (09:35)
[2017-02-11] MEDS: ASPIRIN COATED 81 MG TABLET.EC PO SCH (09:44)
[2017-02-11] MEDS: FERROUS SO4 325 MG TABLET (FP) PO SCH (09:44)
[2017-02-11] MEDS: LOSARTAN POTASSIUM 50 MG TABLET (FP) PO SCH (09:44)
[2017-02-11] MEDS: PANTOPRAZOLE 40 MG TABLET (FP) PO SCH (09:44)
[2017-02-11] MEDS: MAGNESIUM OXIDE 400 MG TABLET (FP) PO SCH ×2 (09:44→21:24)
[2017-02-11] MEDS: amLODIPine BESYLATE 2.5 MG TABLET (FP) PO SCH (09:44)
[2017-02-11] MEDS: HEPARIN NA (PORCINE) 5,000 UNITS/ML 1ML VIAL SQ SCH ×2 (09:44→21:23)
[2017-02-11] MEDS: PANTOPRAZOLE 20 MG TABLET (FP) PO SCH (09:44)
[2017-02-11] MEDS: FUROSEMIDE 20 MG TABLET (FP) PO SCH (09:44)
[2017-02-11] MEDS: POTASSIUM CHLORIDE TABS 10 MEQ TABLET.ER (FP) PO SCH (09:44)
[2017-02-11] MEDS: CEFTRIAXONE 2 GM in DEXTROSE 5%-WATER 100 ML IVPB SCH (09:45)
[2017-02-11] MEDS: ACETAMINOPHEN 325 MG TABLET (FP) PO PRN ×2 (10:10→14:46)
--- NOTE | 2017-02-11 13:46 | PN ---
Progress Note, Physician Chief Complaint: Fall, UTI History of Present Illness: NAD, in bed, left posterior splint seen by podiatry CT reviewed on IV abx - Current Medication List Current Medications: Active Medications Acetaminophen (Tylenol -) 650 mg PO Q4H PRN PRN Reason: FEVER OR PAIN Last Admin: 02/11/17 10:10 Dose: 650 mg Amlodipine Besylate (Norvasc -) 2.5 mg PO DAILY [facility] Last Admin: 02/11/17 09:44 Dose: 2.5 mg Aspirin (Ecotrin -) 81 mg PO DAILY [facility] Last Admin: 02/11/17 09:44 Dose: 81 mg Diphenhydramine HCl (Benadryl -) 50 mg PO TID PRN PRN Reason: FOR ITCHING Last Admin: 02/11/17 13:40 Dose: 50 mg Docusate Sodium (Colace -) 300 mg PO HS [facility] Last Admin: 02/10/17 21:32 Dose: 300 mg Ferrous Sulfate (Feosol -) 325 mg PO DAILY [facility] Last Admin: 02/11/17 09:44 Dose: 325 mg Furosemide (Lasix -) 20 mg PO DAILY [facility] Last Admin: 02/11/17 09:44 Dose: 20 mg Gabapentin (Neurontin -) 400 mg PO TID [facility] Last Admin: 02/11/17 13:39 Dose: 400 mg Heparin Sodium (Porcine) (Heparin -) 5,000 unit SQ BID [facility] Last Admin: 02/11/17 09:44 Dose: 5,000 unit Ceftriaxone Sodium 2 gm/ (Dextrose) 100 mls @ 200 mls/hr IVPB DAILY [facility] Last Admin: 02/11/17 09:45 Dose: 200 mls/hr Losartan Potassium (Cozaar -) 50 mg PO DAILY [facility] Last Admin: 02/11/17 09:44 Dose: 50 mg Magnesium Oxide (Mag-Ox -) 400 mg PO BID [facility] Last Admin: 02/11/17 09:44 Dose: 400 mg Oxycodone HCl (Roxicodone -) 10 mg PO Q4H PRN Last Admin: 02/11/17 10:09 Dose: 10 mg Pantoprazole Sodium (Protonix -) 20 mg PO DAILY [facility] Last Admin: 02/11/17 09:44 Dose: 20 mg Pantoprazole Sodium (Protonix -) 40 mg PO DAILY [facility] Last Admin: 02/11/17 09:44 Dose: 40 mg Potassium Chloride (K-Dur -) 10 meq PO DAILY [facility] Last Admin: 02/11/17 09:44 Dose: 10 meq Senna (Senna -) 1 tab PO DAILY PRN PRN Reason: CONSTIPATION Trazodone HCl (Desyrel -) 100 mg PO HS [facility] Last Admin: 02/10/17 21:32 Dose: 100 mg - Objective Vital Signs: Vital Signs Temperature 99.0 F 02/11/17 09:42 Pulse Rate 80 02/11/17 09:42 Respiratory Rate 20 02/11/17 09:42 Blood Pressure 98/52 02/11/17 09:42 O2 Sat by Pulse Oximetry (%) 97 02/10/17 22:00 Constitutional: Yes: Well Nourished, No Distress, Calm Cardiovascular: Yes: Regular Rate and Rhythm Respiratory: Yes: Regular Gastrointestinal: Yes: Normal Bowel Sounds Musculoskeletal: Yes: Other (Left foot pain) Edema: Yes Peripheral Pulses WNL: Yes Integumentary: Yes: WNL Neurological: Yes: Alert, Oriented Psychiatric: Yes: Alert, Oriented Labs: CBC, BMP 02/10/17 10:13 02/10/17 10:13 INR, PTT INR 1.12 (0.82-1.09) 02/08/17 05:20 Problem List - Problems (1) Leukocytosis Assessment/Plan: -likely secondary to UTI -IV abx -ID on board -BC/UC pending Code(s): D72.829 - ELEVATED WHITE BLOOD CELL COUNT, UNSPECIFIED (2) Diabetes Assessment/Plan: -endocrinology consult -Hg A1c at 5.3 -D/C insulin sliding scale -hold starlix -dietary glycemic control -labs in AM Code(s): E11.9 - TYPE 2 DIABETES MELLITUS WITHOUT COMPLICATIONS Qualifiers: Diabetes mellitus type: type 2 (3) Fall at home 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/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 Code(s): W19.XXXA - UNSPECIFIED FALL, INITIAL ENCOUNTER Y92.099 - UNSP PLACE IN OTH NON-INSTITUTIONAL RESIDENCE PLACE (4) UTI (urinary tract infection) Assessment/Plan: -IV abx -UA positive for nitrites -UC final negative Code(s): N39.0 - URINARY TRACT INFECTION, SITE NOT SPECIFIED (5) Lateral malleolar fracture Code(s): S82.63XA - DISP FX OF LATERAL MALLEOLUS OF UNSP FIBULA, INIT Qualifiers: Fracture type: closed Fracture alignment: nondisplaced Laterality: left (6) Closed intra-articular fracture of calcaneus Assessment/Plan: intra articular anterior process fracture Code(s): S92.063A - DISPLACED INTRAARTICULAR FRACTURE OF UNSP CALCANEUS, INIT (7) Fracture of lateral cuneiform bone of left foot Assessment/Plan: mildly displaced Code(s): S92.222A - DISP FX OF LATERAL CUNEIFORM OF LEFT FOOT, INIT FOR CLOS FX Qualifiers: Fracture type: closed Fracture alignment: displaced Assessment/Plan see problem list
[2017-02-11] MEDS: DOCUSATE SODIUM 100 MG CAPSULE (FP) PO SCH (21:22)
[2017-02-11] MEDS: traZODone HCL 50 MG TABLET (FP) PO SCH (21:24)
[2017-02-12] MEDS: oxyCODONE HCL 5 MG TABLET PO PRN ×5 (01:30→21:39)
[2017-02-12] MEDS: GABAPENTIN 400 MG CAPSULE (FP) PO SCH ×3 (06:50→21:42)
[2017-02-12 07:22] LABS: MCH 26.9 pg (25.7-33.7); MCHC 31.6 g/dl (32.0-36.0); MEAN CELL VOLUME 85.1 fl (80-96); MEAN PLT VOLUME 8.1 fl (7.5-11.1); PLATELET COUNT 393 K/MM3 (134-434); RDW 13.6 % (11.6-15.6); WHITE BLOOD COUNT 14.8 K/mm3 (4.0-10.0)
[2017-02-12 07:52] LABS: ALBUMIN 2.8 g/dl (3.4-5.0); ANION GAP 6 (8-16); BILIRUBIN,TOTAL 0.4 mg/dL (0.2-1.0); CALCIUM 8.6 mg/dL (8.5-10.1); CO2 33 mmol/L (21-32); CREATININE 1.3 mg/dL (0.55-1.02); GLUCOSE,RANDOM 80 mg/dL (74-106); SGOT/AST 35 U/L (15-37); SGPT/ALT 33 U/L (12-78); TOT PROT 6.2 g/dl (6.4-8.2)
[2017-02-12 07:53] LABS: ALK PHOS 150 U/L (45-117)
[2017-02-12 09:14] LABS: METAMYELOCYTE 2 % (0-2); PLATELET COMMENT2 NO CLOTTING DETECTED; PLATELET ESTIMATE ADEQUATE (NORMAL); TOTAL CELLS COUNTED 100
--- NOTE | 2017-02-12 09:26 | PN ---
Progress Note (short form) - Note Progress Note: alert continues with right knee pain and right foot pain- foot is in splint and wrapped no dysuria Vital Signs Period Temp Pulse Resp BP Sys/Teague Pulse Ox Last 24 Hr 98.0 F-99.5 F 69-93 17-21 98-131/47-76 99 cor-rrr lungs clear abd soft,nt ext splint right foot, right knee pain on palpation (prior right TKR) CBC, BMP 02/12/17 06:20 02/12/17 06:20 Microbiology 02/08/17 09:33 Blood - Peripheral Venous Blood Culture - Preliminary NO GROWTH OBTAINED AFTER 72 HOURS, INCUBATION TO CONTINUE FOR 2 DAYS. 02/08/17 09:33 Blood - Peripheral Venous Blood Culture - Preliminary NO GROWTH OBTAINED AFTER 72 HOURS, INCUBATION TO CONTINUE FOR 2 DAYS. 02/08/17 18:25 Urine - Urine - Catheterized Urine Culture - Final NO GROWTH OBTAINED a/p leukocytosis- ?secondary to stress from fall d/c antibiotics, cultures are negative ortho evaluation Dr Maurer, patient was waking several steps and using wheelchair prior to admit and is concerned about her ambulatory status
[2017-02-12] MEDS: FUROSEMIDE 20 MG TABLET (FP) PO SCH (10:36)
[2017-02-12] MEDS: amLODIPine BESYLATE 2.5 MG TABLET (FP) PO SCH (10:36)
[2017-02-12] MEDS: LOSARTAN POTASSIUM 50 MG TABLET (FP) PO SCH (10:36)
[2017-02-12] MEDS: ASPIRIN COATED 81 MG TABLET.EC PO SCH (10:36)
[2017-02-12] MEDS: SENNOSIDES 8.6MG TABLET (FP) PO PRN (10:36)
[2017-02-12] MEDS: FERROUS SO4 325 MG TABLET (FP) PO SCH (10:36)
[2017-02-12] MEDS: PANTOPRAZOLE 40 MG TABLET (FP) PO SCH (10:36)
[2017-02-12] MEDS: POTASSIUM CHLORIDE TABS 10 MEQ TABLET.ER (FP) PO SCH (10:36)
[2017-02-12] MEDS: MAGNESIUM OXIDE 400 MG TABLET (FP) PO SCH ×2 (10:37→21:42)
[2017-02-12] MEDS: PANTOPRAZOLE 20 MG TABLET (FP) PO SCH (10:37)
[2017-02-12] MEDS: HEPARIN NA (PORCINE) 5,000 UNITS/ML 1ML VIAL SQ SCH ×2 (10:39→21:41)
[2017-02-12] MEDS: diphenhydrAMINE HCL 25 MG CAPSULE (FP) PO PRN ×2 (11:53→21:47)
--- NOTE | 2017-02-12 18:56 | PN ---
Progress Note (short form) - Note Progress Note: Pt seen and examined. She is well known to me. She is a 71 yo F pt who fell at home, but states that overall it was a very mild fall. She c/o pain in the left foot and ankle. Xrays and a CT scan confirm she has no fracture around the left pelvis, hip, or knee. She does have nondisplaced, acute fractures of the left lateral mal, ant process calcaneus, cuboid, lateral cuneiform, navicular She is in a posterior short leg splint. Toes are not swollen, and are grossly NVI. Imp As above, left ankle fx and multiple fractures in the foot. Rec No surgery at this time. Post splint is adequate for the next 2 weeks, then switch to a boot. P.T., TTWB left LE if possible. Can DC tomorrow from an ortho pov
--- NOTE | 2017-02-12 20:45 | PN ---
Progress Note, Physician Chief Complaint: Fall, UTI History of Present Illness: NAD, in bed, left posterior splint seen by podiatry CT reviewed on IV abx -seen by ID, ortho, cleared by both -seen by Physical therapy- recommended STR, patient wants to go home. However, explained the need for inability to go back in the community with decreased ambulation. Refuses to go to [facility]. - Current Medication List Current Medications: Active Medications Acetaminophen (Tylenol -) 650 mg PO Q4H PRN PRN Reason: FEVER OR PAIN Last Admin: 02/11/17 14:46 Dose: 650 mg Amlodipine Besylate (Norvasc -) 2.5 mg PO DAILY [facility] Last Admin: 02/12/17 10:36 Dose: 2.5 mg Aspirin (Ecotrin -) 81 mg PO DAILY [facility] Last Admin: 02/12/17 10:36 Dose: 81 mg Diphenhydramine HCl (Benadryl -) 50 mg PO TID PRN PRN Reason: FOR ITCHING Last Admin: 02/12/17 11:53 Dose: 50 mg Docusate Sodium (Colace -) 300 mg PO HS [facility] Last Admin: 02/11/17 21:22 Dose: 300 mg Ferrous Sulfate (Feosol -) 325 mg PO DAILY [facility] Last Admin: 02/12/17 10:36 Dose: 325 mg Furosemide (Lasix -) 20 mg PO DAILY [facility] Last Admin: 02/12/17 10:36 Dose: 20 mg Gabapentin (Neurontin -) 400 mg PO TID [facility] Last Admin: 02/12/17 14:36 Dose: 400 mg Heparin Sodium (Porcine) (Heparin -) 5,000 unit SQ BID [facility] Last Admin: 02/12/17 10:39 Dose: 5,000 unit Losartan Potassium (Cozaar -) 50 mg PO DAILY [facility] Last Admin: 02/12/17 10:36 Dose: 50 mg Magnesium Oxide (Mag-Ox -) 400 mg PO BID [facility] Last Admin: 02/12/17 10:37 Dose: 400 mg Oxycodone HCl (Roxicodone -) 10 mg PO Q4H PRN Last Admin: 02/12/17 17:26 Dose: 10 mg Pantoprazole Sodium (Protonix -) 20 mg PO DAILY [facility] Last Admin: 02/12/17 10:37 Dose: 20 mg Pantoprazole Sodium (Protonix -) 40 mg PO DAILY [facility] Last Admin: 02/12/17 10:36 Dose: 40 mg Potassium Chloride (K-Dur -) 10 meq PO DAILY [facility] Last Admin: 02/12/17 10:36 Dose: 10 meq Senna (Senna -) 1 tab PO DAILY PRN PRN Reason: CONSTIPATION Last Admin: 02/12/17 10:36 Dose: 1 tab Trazodone HCl (Desyrel -) 100 mg PO [facility] Last Admin: 02/11/17 21:24 Dose: 100 mg - Objective Vital Signs: Vital Signs Temperature 99.1 F 02/12/17 14:37 Pulse Rate 80 02/12/17 14:37 Respiratory Rate 20 02/12/17 14:37 Blood Pressure 138/49 02/12/17 14:37 O2 Sat by Pulse Oximetry (%) 92 L 02/12/17 10:00 Constitutional: Yes: Well Nourished, No Distress, Calm Cardiovascular: Yes: Regular Rate and Rhythm Respiratory: Yes: Regular Musculoskeletal: Yes: Other (Left posterior splint) Edema: Yes (left foot) Neurological: Yes: Alert Psychiatric: Yes: Alert Labs: CBC, BMP 02/12/17 06:20 02/12/17 06:20 INR, PTT INR 1.12 (0.82-1.09) 02/08/17 05:20 Problem List - Problems (1) Leukocytosis Assessment/Plan: -inflammtory? 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 -physical therapy Code(s): W19.XXXA - UNSPECIFIED FALL, INITIAL ENCOUNTER Y92.099 - UNSP PLACE IN OTH NON-INSTITUTIONAL RESIDENCE PLACE (4) UTI (urinary tract infection) Assessment/Plan: -IV abx discontinued -UA positive for nitrites -UC final negative Code(s): N39.0 - URINARY TRACT INFECTION, SITE NOT SPECIFIED (5) Lateral malleolar fracture Code(s): S82.63XA - DISP FX OF LATERAL MALLEOLUS OF UNSP FIBULA, INIT Qualifiers: Fracture type: closed Fracture alignment: nondisplaced Laterality: left (6) Closed intra-articular fracture of calcaneus Assessment/Plan: intra articular anterior process fracture Code(s): S92.063A - DISPLACED INTRAARTICULAR FRACTURE OF UNSP CALCANEUS, INIT (7) Fracture of lateral cuneiform bone of left foot Assessment/Plan: mildly displaced Code(s): S92.222A - DISP FX OF LATERAL CUNEIFORM OF LEFT FOOT, INIT FOR CLOS FX Qualifiers: Fracture type: closed Fracture alignment: displaced Assessment/Plan see problem list
[2017-02-12] MEDS: ACETAMINOPHEN 325 MG TABLET (FP) PO PRN (21:40)
[2017-02-12] MEDS: traZODone HCL 50 MG TABLET (FP) PO SCH (21:41)
[2017-02-12] MEDS: DOCUSATE SODIUM 100 MG CAPSULE (FP) PO SCH (21:41)
[2017-02-13] MEDS: oxyCODONE HCL 5 MG TABLET PO PRN ×3 (01:37→11:42)
[2017-02-13] MEDS: ACETAMINOPHEN 325 MG TABLET (FP) PO PRN ×2 (01:38→05:38)
[2017-02-13] MEDS: GABAPENTIN 400 MG CAPSULE (FP) PO SCH ×2 (05:38→14:48)
[2017-02-13 06:10] LABS: URINE APPEARANCE CLOUDY; URINE BILIRUBIN NEGATIVE (NEGATIVE); URINE BLOOD NEGATIVE (NEGATIVE); URINE COLOR YELLOW; URINE GLUCOSE (UA) NEGATIVE (NEGATIVE); URINE KETONE NEGATIVE (NEGATIVE); URINE NITRITE NEGATIVE (NEGATIVE); URINE PROTEIN NEGATIVE (NEGATIVE); URINE UROBILINOGEN NEGATIVE mg/dL (0.2-1.0)
[2017-02-13 06:23] LABS: URINE LEUK ESTERASE 1+ (NEGATIVE)
[2017-02-13 06:30] LABS: URINE MUCUS RARE; URINE RBC 14 /hpf (0-3); URINE WBC 23 /hpf (3-5)
[2017-02-13 08:24] LABS: MEAN CELL VOLUME 84.3 fl (80-96); MEAN PLT VOLUME 8.2 fl (7.5-11.1); PLATELET COUNT 455 K/MM3 (134-434); RDW 13.3 % (11.6-15.6); WHITE BLOOD COUNT 15.8 K/mm3 (4.0-10.0)
[2017-02-13] MEDS: diphenhydrAMINE HCL 25 MG CAPSULE (FP) PO PRN (08:28)
[2017-02-13 09:10] LABS: ALBUMIN 2.9 g/dl (3.4-5.0); ALK PHOS 189 U/L (45-117); ANION GAP 8 (8-16); BILIRUBIN,TOTAL 0.5 mg/dL (0.2-1.0); CALCIUM 9.4 mg/dL (8.5-10.1); CO2 31 mmol/L (21-32); CREATININE 1.2 mg/dL (0.55-1.02); GLUCOSE,RANDOM 98 mg/dL (74-106); SGOT/AST 50 U/L (15-37); SGPT/ALT 44 U/L (12-78); TOT PROT 6.3 g/dl (6.4-8.2)
[2017-02-13 10:23] LABS: TOTAL CELLS COUNTED 100
[2017-02-13 10:24] LABS: BASOPHIL (MANUAL) 1 % (0-2.0); MYELOCYTE 1 % (0-2)
--- NOTE | 2017-02-13 11:00 | DS ---
Physical Examination Vital Signs: Vital Signs Temperature 98.7 F 02/13/17 09:36 Pulse Rate 83 02/13/17 09:36 Respiratory Rate 18 02/13/17 09:36 Blood Pressure 132/65 02/13/17 09:36 O2 Sat by Pulse Oximetry (%) 98 02/12/17 21:00 Constitutional: Yes: Calm Cardiovascular: Yes: Regular Rate and Rhythm, S1, S2 Respiratory: Yes: CTA Bilaterally Gastrointestinal: Yes: Normal Bowel Sounds, Soft, Abdomen, Obese Extremities: Yes: Other (right foot tenderness) Neurological: Yes: Alert, Oriented Labs: CBC, BMP 02/13/17 07:30 02/13/17 07:30 Discharge Summary Reason For Visit: LEUKOCYTOSIS Current Active Problems Closed intra-articular fracture of calcaneus (Acute) Fall at home (Acute) Fracture of lateral cuneiform bone of left foot (Acute) Lateral malleolar fracture (Acute) Leukocytosis (Acute) UTI (urinary tract infection) (Acute) Hospital Course: PCP: Bran De Leon (Bernarda,Iyaenrrique) - Admission Chief Complaint: s/p Fall, UTI History of Present Illness: becky Calderon 71 yo female came into [facility] ER S/P unwitnessed fall at home. upon questions, she states she was trying to go from her bedroom to her electric wheelchair early in the morning, when her left knee buckled and she fell. She aj hitting her head but complains of severe Left leg pain. 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 She was assisted by her [employer] DEVELOPER after the fall. Denies any new onset weakness, lightheadedness, fevers/chills, N/V, SOB, chest pain, complaints, abdominal complaints, numbness/tingling, neck pain, back pain, loss of bladder/bowel control, or urinary retention. 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 RELATIONS: Yes: 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 Cardiovascular: Yes: HTN Pulmonary: Yes: Asthma, COPD Gastrointestinal: Yes: GERD (using walker at home ) Renal/: Yes: Renal Failure (chronic) Psych: Yes: Depression Musculoskeletal: Yes: Osteoarthritis, Other (DDD) Rheumatology: Yes: Rheumatoid Arthritis Endocrine: Yes: Diabetes Mellitus Additional Past Medical History: Obesity - Past Surgical History Past Surgical History: Yes: Cholecystectomy, Hysterectomy, Joint Replacement ( prior left knee total replacement, Total hip replacement) - Smoking History Smoking history: Former smoker Have you smoked in the past 12 months: No Aproximately how many cigarettes per day: 0 If you are a former smoker, when did you quit?: 4 years ago - Alcohol/Substance Use Hx Alcohol Use: No History of Substance Use: reports: None hospital course: leukocytosis : seen by ID no abx at this time negative cultures possible sec to stress of fracture been afebrile in hospital except fpr low grade 100.1 Microbiology 02/08/17 18:25 Urine - Urine - Catheterized Urine Culture - Final NO GROWTH OBTAINED 02/08/17 09:33 Blood - Peripheral Venous Blood Culture - Preliminary NO GROWTH OBTAINED AFTER 96 HOURS, INCUBATION TO CONTINUE FOR 1 DAYS. 02/08/17 09:33 Blood - Peripheral Venous Blood Culture - Preliminary NO GROWTH OBTAINED AFTER 96 HOURS, INCUBATION TO CONTINUE FOR 1 DAYS. left foot pain :Xrays and a CT scan confirm she has no fracture around the left pelvis, hip, or knee. She does have nondisplaced, acute fractures of the left lateral mal, ant process calcaneus, cuboid, lateral cuneiform, navicular seen by ortho and No surgery at this time. Post splint is adequate for the next 2 weeks, then switch to a boot. P.T., TTWB left LE if possible. DM hga1c 5.3 starlix and exanitide on hold for now FU with PMD as outpatient BGM ok in hospital right foot point tenderness xray was done awaiting ct scan to see if fracture of foot uric acid elevated will give steroids and allopurinol possible gouty attack Condition: Stable - Instructions Diet, Activity, Other Instructions: Post splint is adequate for the next 2 weeks, then switch to a boot. P.T., TTWB left LE if possible. repeat uric acid and cmp in 3 days Referrals: Bran De Leon MD [Primary Care Provider] - Disposition: [facility] FACILITY - Home Medications Comprehensive Discharge Medication List: Ambulatory Orders Amlodipine Besylate [Norvasc -] 2.5 mg PO DAILY 09/03/15 Ergocalciferol (Vitamin D2) [Drisdol] 50,000 units PO WEEKLY 09/03/15 Exenatide Microspheres [Bydureon] 2 mg SQ Q7D 09/03/15 Ferrous Sulfate [Feosol] 325 mg PO DAILY 09/03/15 Interferon Beta-1A [Avonex] 30 mcg IM WEEKLY 09/03/15 Omeprazole 20 mg PO DAILY 09/03/15 Potassium Chloride 10 meq PO DAILY 09/03/15 Sennosides [Senna] 8.6 mg PO DAILY PRN 09/03/15 Aspirin Coated [Ecotrin -] 81 mg PO DAILY #30 tablet.ec 09/10/15 Docusate Sodium [Colace -] 300 mg PO HS #30 capsule 09/10/15 Furosemide [Lasix -] 20 mg PO DAILY #30 tablet 09/10/15 Losartan Potassium [Cozaar -] 50 mg PO DAILY #30 tablet 09/10/15 Magnesium Oxide 400 mg PO BID #7 tablet 09/10/15 Pantoprazole Sodium [Protonix -] 40 mg PO DAILY #30 tablet.ec 09/10/15 Trazodone HCl [Desyrel -] 100 mg PO HS #30 tablet 09/10/15 Gabapentin [Neurontin -] 400 mg PO Q8H 01/09/17 Hydrocodone/Acetaminophen [[place] 10-325 Tablet] 1 each PO QID PRN #120 tablet MDD 4 01/09/17 Nateglinide [Starlix (Nf)] 120 mg PO TID 01/09/17
--- NOTE | 2017-02-13 11:25 | PN ---
Progress Note, Physician Chief Complaint: patient complaining of right ankle and foot pain went down for xray soft tissue swelling seen gume get CT scan of right foot explained to patient that bc she lives alone she cannot go home given left foot in splint and right foot swelling and pain spoke to her about rehab she is now ok with it i explained to her risks of going home given her limited mobility/ambulation she understands. she doesnot want to go to [facility] - Current Medication List Current Medications: Active Medications Acetaminophen (Tylenol -) 650 mg PO Q4H PRN PRN Reason: FEVER OR PAIN Last Admin: 02/13/17 05:38 Dose: 650 mg Amlodipine Besylate (Norvasc -) 2.5 mg PO DAILY [facility] Last Admin: 02/12/17 10:36 Dose: 2.5 mg Aspirin (Ecotrin -) 81 mg PO DAILY [facility] Last Admin: 02/12/17 10:36 Dose: 81 mg Diphenhydramine HCl (Benadryl -) 50 mg PO TID PRN PRN Reason: FOR ITCHING Last Admin: 02/13/17 08:28 Dose: 50 mg Docusate Sodium (Colace -) 300 mg PO HS [facility] Last Admin: 02/12/17 21:41 Dose: 300 mg Ferrous Sulfate (Feosol -) 325 mg PO DAILY [facility] Last Admin: 02/12/17 10:36 Dose: 325 mg Furosemide (Lasix -) 20 mg PO DAILY [facility] Last Admin: 02/12/17 10:36 Dose: 20 mg Gabapentin (Neurontin -) 400 mg PO TID [facility] Last Admin: 02/13/17 05:38 Dose: 400 mg Heparin Sodium (Porcine) (Heparin -) 5,000 unit SQ BID [facility] Last Admin: 02/12/17 21:41 Dose: 5,000 unit Losartan Potassium (Cozaar -) 50 mg PO DAILY [facility] Last Admin: 02/12/17 10:36 Dose: 50 mg Magnesium Oxide (Mag-Ox -) 400 mg PO BID [facility] Last Admin: 02/12/17 21:42 Dose: 400 mg Oxycodone HCl (Roxicodone -) 10 mg PO Q4H PRN Last Admin: 02/13/17 05:36 Dose: 10 mg Pantoprazole Sodium (Protonix -) 20 mg PO DAILY [facility] Last Admin: 02/12/17 10:37 Dose: 20 mg Pantoprazole Sodium (Protonix -) 40 mg PO DAILY [facility] Last Admin: 02/12/17 10:36 Dose: 40 mg Potassium Chloride (K-Dur -) 10 meq PO DAILY [facility] Last Admin: 02/12/17 10:36 Dose: 10 meq Senna (Senna -) 1 tab PO DAILY PRN PRN Reason: CONSTIPATION Last Admin: 02/12/17 10:36 Dose: 1 tab Trazodone HCl (Desyrel -) 100 mg PO HS [facility] Last Admin: 02/12/17 21:41 Dose: 100 mg - Objective Vital Signs: Vital Signs Temperature 98.7 F 02/13/17 09:36 Pulse Rate 83 02/13/17 09:36 Respiratory Rate 18 02/13/17 09:36 Blood Pressure 132/65 02/13/17 09:36 O2 Sat by Pulse Oximetry (%) 93 L 02/13/17 10:00 Constitutional: Yes: Mild Distress, Other (foot pain) Cardiovascular: Yes: Regular Rate and Rhythm, S1, S2 Respiratory: Yes: CTA Bilaterally Gastrointestinal: Yes: Normal Bowel Sounds, Soft, Abdomen, Obese Extremities: Yes: Other (left foot splint and right foot tenderness noted) Neurological: Yes: Alert, Oriented Labs: CBC, BMP 02/13/17 07:30 02/13/17 07:30 INR, PTT INR 1.12 (0.82-1.09) 02/08/17 05:20 Problem List - Problems (1) Fracture of lateral cuneiform bone of left foot Assessment/Plan: post splint ortho saw patient yesterday spoke to patient about rehab she agrees to go to [facility] PMR consult Code(s): S92.222A - DISP FX OF LATERAL CUNEIFORM OF LEFT FOOT, INIT FOR CLOS FX Qualifiers: Fracture type: closed Fracture alignment: displaced (2) Fall at home Assessment/Plan: STR PMR consult Code(s): W19.XXXA - UNSPECIFIED FALL, INITIAL ENCOUNTER Y92.099 - UNSP PLACE IN OTH NON-INSTITUTIONAL RESIDENCE PLACE (3) Leukocytosis Assessment/Plan: may be sec to stress of fracture Code(s): D72.829 - ELEVATED WHITE BLOOD CELL COUNT, UNSPECIFIED (4) Right foot pain Assessment/Plan: xray done linear density noted will get ct scan to r/o fracture given she has tenderness of foot- pending the ct scan result gume get ortho to come back see right foot ice compress to foot Code(s): M79.671 - PAIN IN RIGHT FOOT (5) Anxiety and depression Assessment/Plan: trazzadone Code(s): F41.9 - ANXIETY DISORDER, UNSPECIFIED F32.9 - MAJOR DEPRESSIVE DISORDER, SINGLE EPISODE, UNSPECIFIED (6) Anemia Assessment/Plan: h/h noted on ferrous sulfate Code(s): D64.9 - ANEMIA, UNSPECIFIED Assessment/Plan PMR consult CT scan of right foot uric acid level pending ortho FU after ct scan is done leukocytosis could be sec to stress of fracture not safe to go home needs snf
[2017-02-13] MEDS: FERROUS SO4 325 MG TABLET (FP) PO SCH (11:41)
[2017-02-13] MEDS: ASPIRIN COATED 81 MG TABLET.EC PO SCH (11:41)
[2017-02-13] MEDS: amLODIPine BESYLATE 2.5 MG TABLET (FP) PO SCH (11:41)
[2017-02-13] MEDS: SENNOSIDES 8.6MG TABLET (FP) PO PRN (11:42)
[2017-02-13] MEDS: PANTOPRAZOLE 40 MG TABLET (FP) PO SCH (11:42)
[2017-02-13] MEDS: FUROSEMIDE 20 MG TABLET (FP) PO SCH (11:42)
[2017-02-13] MEDS: POTASSIUM CHLORIDE TABS 10 MEQ TABLET.ER (FP) PO SCH (11:42)
[2017-02-13] MEDS: LOSARTAN POTASSIUM 50 MG TABLET (FP) PO SCH (11:42)
[2017-02-13] MEDS: MAGNESIUM OXIDE 400 MG TABLET (FP) PO SCH (11:42)
[2017-02-13] MEDS: HEPARIN NA (PORCINE) 5,000 UNITS/ML 1ML VIAL SQ SCH (11:42)
[2017-02-13 11:56] LABS: URIC ACID 7.7 mg/dL (2.6-7.2)
[2017-02-13] MEDS: PANTOPRAZOLE 20 MG TABLET (FP) PO SCH (11:56)
--- NOTE | 2017-02-13 12:29 | CON.NEP ---
Consult Consult Specialty:: Nephrology (Albert/Tyrell) Referred by:: Dr. Menchaca Reason for Consultation:: CKD - History of Present Illness Chief Complaint: s/p fall History of Present Illness: This is a 71 year old woman with PMhx of CKD Stage 3 (baseline Cr 1.1-1.2) w/o proteinuria, Hypertension, Osteoarthritis, Hyperlipdemia, MS presents with fall from home and found to have acute fractures in the left foot with BUN/Cr of 21/ 1.3. Pt is known to have CKD and follows with Dr. Ortega Anderson. Denies any history of kidney stones, flank pain, recurrent UTI's. Renal function has been stable as per the patient. Pt is on Losartan at home. No change in urine output , hematuria, dysuria reported. Denies any sob, chest pain, abd pain, N/V/D. - History Source History Provided By: Patient Limitations to Obtaining History: No Limitations - Past Medical History [employer] W[employer]SE [employer]: Yes: 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 Cardio/Vascular: Yes: HTN Pulmonary: Yes: Asthma, COPD Gastrointestinal: Yes: GERD (using walker at home ) Renal/: Yes: Renal Inusuff ...: No Psych: Yes: Depression Musculoskeletal: Yes: Osteoarthritis, Other (DDD) Rheumatology: Yes: Rheumatoid Arthritis Endocrine: Yes: Diabetes Mellitus Additional Medical History: as in HPI, morbidly obese - Past Surgical History Past Surgical History: Yes: Cholecystectomy, Hysterectomy, Joint Replacement ( prior left knee total replacement, Total hip replacement) - Alcohol/Substance Use Hx Alcohol Use: No History of Substance Use: reports: None - Smoking History Smoking history: Former smoker Have you smoked in the past 12 months: No Aproximately how many cigarettes per day: 0 If you are a former smoker, when did you quit?: 4 years ago - Social History Usual Living Arrangement: With Significant Other ADL: Independent History of Recent Travel: No Home Medications - Allergies Allergies/Adverse Reactions: Allergies Allergy/AdvReac Type Severity Reaction Status Date / Time Sulfa (Sulfonamide Allergy Severe Hives Verified 02/08/17 05:10 Antibiotics) - Home Medications Home Medications: Ambulatory Orders Amlodipine Besylate [Norvasc -] 2.5 mg PO DAILY 09/03/15 Ergocalciferol (Vitamin D2) [Drisdol] 50,000 units PO WEEKLY 09/03/15 Exenatide Microspheres [Bydureon] 2 mg SQ Q7D 09/03/15 Ferrous Sulfate [Feosol] 325 mg PO DAILY 09/03/15 Interferon Beta-1A [Avonex] 30 mcg IM WEEKLY 09/03/15 Omeprazole 20 mg PO DAILY 09/03/15 Potassium Chloride 10 meq PO DAILY 09/03/15 Sennosides [Senna] 8.6 mg PO DAILY PRN 09/03/15 Aspirin Coated [Ecotrin -] 81 mg PO DAILY #30 tablet.ec 09/10/15 Docusate Sodium [Colace -] 300 mg PO HS #30 capsule 09/10/15 Furosemide [Lasix -] 20 mg PO DAILY #30 tablet 09/10/15 Losartan Potassium [Cozaar -] 50 mg PO DAILY #30 tablet 09/10/15 Magnesium Oxide 400 mg PO BID #7 tablet 09/10/15 Pantoprazole Sodium [Protonix -] 40 mg PO DAILY #30 tablet.ec 09/10/15 Trazodone HCl [Desyrel -] 100 mg PO HS #30 tablet 09/10/15 Gabapentin [Neurontin -] 400 mg PO Q8H 01/09/17 Hydrocodone/Acetaminophen [Webster 10-325 Tablet] 1 each PO QID PRN #120 tablet MDD 4 01/09/17 Nateglinide [Starlix (Nf)] 120 mg PO TID 01/09/17 Family Disease History - Family Disease History Family Disease History: CA: Mother (cancer), Other: Brother (pain - arthritis) Review of Systems - Review of Systems Constitutional: reports: No Symptoms Eyes: reports: No Symptoms HENT: reports: No Symptoms Neck: reports: No Symptoms Cardiovascular: reports: No Symptoms Respiratory: reports: No Symptoms Gastrointestinal: reports: No Symptoms Genitourinary: reports: No Symptoms Musculoskeletal: reports: Extremity Pain, Joint Pain, Joint Swelling Integumentary: reports: No Symptoms Neurological: reports: No Symptoms Hematology/Lymphatic: reports: No Symptoms Nephrology Consult - Height Height: 5 ft 2 in - Weight Weight: 200 lb - BMI Body Mass Index (BMI): 36.6 - Lab Results CBC,BMP: CBC, BMP 02/13/17 07:30 02/13/17 07:30 Anion Gap: Anion Gap Anion Gap 8 (8-16) 02/13/17 07:30 - Imaging Chest X-ray: Report Reviewed - Physical Examination Vital Signs: Vital Signs Temperature 98.7 F 02/13/17 09:36 Pulse Rate 83 02/13/17 09:36 Respiratory Rate 18 02/13/17 09:36 Blood Pressure 132/65 02/13/17 09:36 O2 Sat by Pulse Oximetry (%) 93 L 02/13/17 10:00 Constitutional: Yes: Well Nourished, No Distress, Calm Eyes: Yes: Conjunctiva Clear HENT: Yes: Atraumatic, Normocephalic Neck: Yes: Supple Cardiovascular: Yes: Regular Rate and Rhythm Respiratory: Yes: Regular, CTA Bilaterally Gastrointestinal: Yes: Normal Bowel Sounds, Soft Renal/: No: Anuria, Bladder Distention, CVA Tenderness - Left, CVA Tenderness - Right, Roth Present Edema: No Neurological: Yes: Alert, Oriented Problem List - Problems (1) Closed intra-articular fracture of calcaneus Code(s): S92.063A - DISPLACED INTRAARTICULAR FRACTURE OF UNSP CALCANEUS, INIT (2) Fall at home Code(s): W19.XXXA - UNSPECIFIED FALL, INITIAL ENCOUNTER Y92.099 - UNSP PLACE IN H NON-INSTITUTIONAL RESIDENCE PLACE (3) Fracture of lateral cuneiform bone of left foot Code(s): S92.222A - DISP FX OF LATERAL CUNEIFORM OF LEFT FOOT, INIT FOR CLOS FX Qualifiers: Fracture type: closed Fracture alignment: displaced (4) Chronic renal insufficiency, stage III (moderate) Code(s): N18.3 - CHRONIC KIDNEY DISEASE, STAGE 3 (MODERATE) (5) Osteoarthritis Code(s): M19.90 - UNSPECIFIED OSTEOARTHRITIS, UNSPECIFIED SITE Qualifiers: Osteoarthritis location: unspecified site (6) Hypertension Code(s): I10 - ESSENTIAL (PRIMARY) HYPERTENSION Assessment/Plan 71 year old woman with PMhx of CKD Stage 3 (baseline Cr 1.1-1.2) w/o proteinuria , Hypertension, Osteoarthritis, Hyperlipdemia, MS presents with fall from home and found to have acute fractures in the left foot with BUN/Cr of 21/1.3. 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 Current Medications Acetaminophen (Tylenol -) 650 mg PO Q4H PRN PRN Reason: FEVER OR PAIN Last Admin: 02/13/17 05:38 Dose: 650 mg Amlodipine Besylate (Norvasc -) 2.5 mg PO DAILY [facility] Last Admin: 02/13/17 11:41 Dose: 2.5 mg Aspirin (Ecotrin -) 81 mg PO DAILY [facility] Last Admin: 02/13/17 11:41 Dose: 81 mg Diphenhydramine HCl (Benadryl -) 50 mg PO TID PRN PRN Reason: FOR ITCHING Last Admin: 02/13/17 08:28 Dose: 50 mg Docusate Sodium (Colace -) 300 mg PO HS [facility] Last Admin: 02/12/17 21:41 Dose: 300 mg Ferrous Sulfate (Feosol -) 325 mg PO DAILY [facility] Last Admin: 02/13/17 11:41 Dose: 325 mg Furosemide (Lasix -) 20 mg PO DAILY [facility] Last Admin: 02/13/17 11:42 Dose: 20 mg Gabapentin (Neurontin -) 400 mg PO TID [facility] Last Admin: 02/13/17 05:38 Dose: 400 mg Heparin Sodium (Porcine) (Heparin -) 5,000 unit SQ BID [facility] Last Admin: 02/13/17 11:42 Dose: 5,000 unit Losartan Potassium (Cozaar -) 50 mg PO DAILY [facility] Last Admin: 02/13/17 11:42 Dose: 50 mg Magnesium Oxide (Mag-Ox -) 400 mg PO BID [facility] Last Admin: 02/13/17 11:42 Dose: 400 mg Oxycodone HCl (Roxicodone -) 10 mg PO Q4H PRN Last Admin: 02/13/17 11:42 Dose: 10 mg Pantoprazole Sodium (Protonix -) 40 mg PO DAILY [facility] Last Admin: 02/13/17 11:42 Dose: 40 mg Potassium Chloride (K-Dur -) 10 meq PO DAILY [facility] Last Admin: 02/13/17 11:42 Dose: 10 meq Senna (Senna -) 1 tab PO DAILY PRN PRN Reason: CONSTIPATION Last Admin: 02/13/17 11:42 Dose: 1 tab Trazodone HCl (Desyrel -) 100 mg PO [facility] Last Admin: 02/12/17 21:41 Dose: 100 mg
[2017-02-13] MEDS ORDERED: predniSONE 20 MG TABLET (UD) PO ONE (13:22)
[2017-02-13] MEDS ORDERED: ALLOPURINOL 100 MG TABLET (FP) PO SCH (13:30)
--- NOTE | 2017-02-13 13:37 | CONS ---
PHYSICAL MEDICINE REHABILITATION CONSULTATION REFERRING PHYSICIAN: Justina Menchaca MD DATE OF ADMISSION: 02/08/2017 DATE OF CONSULTATION: 02/13/2017 HISTORY OF PRESENT ILLNESS: The patient is a 71-year-old woman with past medical history of multiple sclerosis, who was admitted on February 08 after falling at home. Patient has undergone x-rays including her hips, ankles, and feet. She was found to have no fracture involving her hip, but multiple fractures in the left lower extremity including the left lateral malleolus, calcaneus, and left lateral cuneiform. X-rays of the right foot failed to demonstrate any fracture, but a CT scan apparently is pending. Patients blood work showed elevated WBC at 18.4 on admission, and the latest as of today was 15.8, still elevated, hemoglobin stable at 10.5, platelet count normal 455. She has a normal BUN 17, slight elevation of creatinine 1.2, but otherwise unremarkable Chem-7. She does have some elevation in AST on admission at 57, currently 50, ALT is normal at 44, alkaline phosphatase slightly elevated at 189, decreased total protein 6.3 and albumin of 2.9. Patient was seen by physical therapy, but is nonweightbearing on the left lower extremity. Baseline, she often used a wheelchair as well as oxygen constantly, but states she did ambulate. Patient is now seen in rehabilitation evaluation. REVIEW OF PAST MEDICAL AND SURGICAL HISTORY: Also significant for lung cancer status post right lobectomy for which she is on oxygen and mask, which per the patient, gives her diffuse weakness. Patient is overweight. History of hysterectomy, left total knee replacement, total hip replacement on the right with osteoarthritic changes in the left hip and spondylosis as well as spondylolysis on the left at L4 and mild compression deformity. SOCIAL HISTORY: She lives alone in an apartment, no stairs. Again, she often used a wheelchair, but did ambulate short distances per the patient. She used oxygen at all times. Current function is extremely limited. REVIEW OF SYSTEMS: Occasional lightheadedness. No headache, blurry vision, double vision. No chest pain. She does get dyspneic with exertion. She complains of pain in both of her feet and ankles. No bowel or bladder incontinence. Patient did move her bowels yesterday. PHYSICAL EXAMINATION: General: On examination, patient seen at bedside, slightly overweight, in no acute distress. HEENT: She is normocephalic and atraumatic. Her extraocular muscles appear intact. No obvious facial weakness. Neck: Supple. Extremities: She has some soft tissue swelling in the right lower extremity in a short-leg cast or splint from below the knee to the foot. She can wiggle her toes. Skin without any discoloration in the right ankle. Neuromuscular: She is awake, alert, oriented x3. Cranial nerves 2-12 grossly intact. Weakness throughout. Both of her upper extremities grossly 3+ to 4 out of 5. She has diffuse weakness, but she is unable to lift the left leg off the bed. The right hip is also weak at 1 to 2 out of 5, but her knee extensors on the right are 4 out of 5. She has foot drop with weakness and dorsiflexion either caused by underlying MS or pain. She is tender on the anterior talar fibular and calcaneal fibular ligaments, but normal sensation to pinprick, both in the upper extremities, right lower extremity as well as both proximal and distal to the splint in the left lower extremity. OVERALL IMPRESSION: 1. deficits mobility, activities of daily living, multifactorial. 2. Multiple fractures involving the left lower extremity including the left lateral malleolus, calcaneus, and left lateral cuneiform. 3. Right foot and ankle pain, rule out occult fracture, possible ankle sprain. 4. Multiple sclerosis with diffuse weakness, uncertain whether she had any foot drop prior on the right lower extremity. 5. History of lung cancer status post right lobectomy on oxygen. 6. Urinary tract infection. 7. Anemia. 8. Slight elevation liver function test including aspartate amino transferase and alkaline phosphatase. 9. Decreased total protein and albumin. 10. Elevated risk for deep venous thrombosis due to immobility. PLANS AND SUGGESTIONS: 1. Physical therapy, nonweightbearing, left lower extremity. 2. Check CT scan, right lower extremity, rule out occult fracture. 3. Skin precaution. 4. Continue subcutaneous heparin for DVT prophylaxis, 5. Consider Aircast or splint for the right lower extremity if negative for fracture. 6. Orthopedic followup. 7. Patient requires short-term rehabilitation. 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 8. Bowel regimen. 9. Consider neurologic evaluation regarding her MS. Thank you for this referral. EVELYN LEDBETTER M.D. [facility]/[id number]
--- NOTE | 2017-02-13 14:35 | PN ---
Progress Note (short form) - Note Progress Note: orthopedically stable Plan: dc to SNF when medically ok
[2017-02-13 15:40] VITALS: BP 121/62; PULSE 86; TEMP 99.7
--- NOTE | 2017-02-13 23:01 | PN ---
Progress Note (short form) - Note Progress Note: considering difficulty with ambulation,and living condition will need rehab for lower extremity instability,with underlying ms,and dm Past Problems Acute renal failure (Resolved) Cutaneous abscess (Resolved) Dehydration (Resolved) Diarrhea (Resolved) Elevated LFTs (Resolved) Hypomagnesemia (Resolved) Hyponatremia (Resolved) Seizure (Resolved) Abnormal Lab Results 02/13/17 02/13/17 02/13/17 05:30 05:30 07:30 WBC 15.8 H Hgb 10.5 L Plt Count 455 H Creatinine Uric Acid AST Alkaline Phosphatase Total Protein Albumin Ur Leukocyte Esterase 1+ H U Random Total Protein 20 H 02/13/17 07:30 WBC Hgb Plt Count Creatinine 1.2 H Uric Acid 7.7 H D AST 50 H D Alkaline Phosphatase 189 H D Total Protein 6.3 L Albumin 2.9 L Ur Leukocyte Esterase U Random Total Protein Laboratory Results - last 24 hr 02/13/17 02/13/17 02/13/17 05:30 05:30 05:30 WBC RBC Hgb Hct MCV MCH MCHC RDW Plt Count MPV Total Counted Neutrophils % Neutrophils % (Manual) Lymphocytes % Lymphocytes % (Manual) Monocytes % (Manual) Eosinophils % (Manual) Basophils % (Manual) Myelocytes % (Man) Sodium Potassium Chloride Carbon Dioxide Anion Gap BUN Creatinine Creat Clearance w eGFR POC Glucometer Random Glucose Uric Acid Calcium Total Bilirubin AST ALT Alkaline Phosphatase Total Protein Albumin Urine Color Yellow Urine Appearance Cloudy Urine pH 6.0 Ur Specific Tiller 1.015 Urine Protein Negative Urine Glucose (UA) Negative Urine Ketones Negative Urine Blood Negative Urine Nitrite Negative Urine Bilirubin Negative Urine Urobilinogen Negative Ur Leukocyte Esterase 1+ H Urine RBC 14 Urine WBC 23 Ur Epithelial Cells Moderate Urine Mucus Rare U Random Total Protein Ur Random Sodium 84 Ur Random Urea Nitrogn Urine Creatinine 137.0 02/13/17 02/13/17 02/13/17 05:30 05:30 07:30 WBC 15.8 H RBC 3.91 Hgb 10.5 L Hct 32.9 MCV 84.3 MCH 27.0 MCHC 32.0 RDW 13.3 Plt Count 455 H MPV 8.2 Total Counted 100 Neutrophils % Y Neutrophils % (Manual) 78 D Lymphocytes % Y Lymphocytes % (Manual) 9 D Monocytes % (Manual) 10 Eosinophils % (Manual) 1 Basophils % (Manual) 1 Myelocytes % (Man) 1 Sodium Potassium Chloride Carbon Dioxide Anion Gap BUN Creatinine Creat Clearance w eGFR POC Glucometer Random Glucose Uric Acid Calcium Total Bilirubin AST ALT Alkaline Phosphatase Total Protein Albumin Urine Color Urine Appearance Urine pH Ur Specific Tiller Urine Protein Urine Glucose (UA) Urine Ketones Urine Blood Urine Nitrite Urine Bilirubin Urine Urobilinogen Ur Leukocyte Esterase Urine RBC Urine WBC Ur Epithelial Cells Urine Mucus U Random Total Protein 20 H Ur Random Sodium Ur Random Urea Nitrogn 640 Urine Creatinine 02/13/17 02/13/17 02/13/17 07:30 07:30 17:20 WBC RBC Hgb Hct MCV MCH MCHC RDW Plt Count MPV Total Counted Neutrophils % Neutrophils % (Manual) Lymphocytes % Lymphocytes % (Manual) Monocytes % (Manual) Eosinophils % (Manual) Basophils % (Manual) Myelocytes % (Man) Sodium 139 Potassium 4.6 Chloride 100 Carbon Dioxide 31 Anion Gap 8 BUN 17 Creatinine 1.2 H Creat Clearance w eGFR 44.29 POC Glucometer 131 Random Glucose 98 D Uric Acid 7.7 H D Cancelled Calcium 9.4 Total Bilirubin 0.5 D AST 50 H D ALT 44 D Alkaline Phosphatase 189 H D Total Protein 6.3 L Albumin 2.9 L Urine Color Urine Appearance Urine pH Ur Specific Tiller Urine Protein Urine Glucose (UA) Urine Ketones Urine Blood Urine Nitrite Urine Bilirubin Urine Urobilinogen Ur Leukocyte Esterase Urine RBC Urine WBC Ur Epithelial Cells Urine Mucus U Random Total Protein Ur Random Sodium Ur Random Urea Nitrogn Urine Creatinine plan: bgm qid novolog scale resume metformin outpatient pt and outpt follow up Problem List - Problems (1) Anxiety and depression Code(s): F41.9 - ANXIETY DISORDER, UNSPECIFIED F32.9 - MAJOR DEPRESSIVE DISORDER, SINGLE EPISODE, UNSPECIFIED (2) Anxiety disorder Code(s): F41.9 - ANXIETY DISORDER, UNSPECIFIED Qualifiers: 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
[2017-02-14] MEDS ORDERED: predniSONE 10 MG TABLET (UD) PO SCH (10:00)
== END 2017-02-13 18:36 | DRG 563 ==
LOC: JER 04:31 → JERBED 09:31 → J5S 15:08
PROVIDERS: ADMIT Family Medicine; ATTEND Family Medicine
PROC: 2W3QX1Z Immobilization of Right Lower Leg using Splint (ICD-10-PCS; principal; 2017-02-10)
DX: S92.222A Displaced fracture of lateral cuneiform of left foot, initial encounter for closed fracture (principal); N39.0 Urinary tract infection, site not specified; S82.65XA Nondisplaced fracture of lateral malleolus of left fibula, initial encounter for closed fracture; S92.061A Displaced intraarticular fracture of right calcaneus, initial encounter for closed fracture; Z86.73 Personal history of transient ischemic attack (TIA), and cerebral infarction without residual deficits; I12.9 Hypertensive chronic kidney disease with stage 1 through stage 4 chronic kidney disease, or unspecified chronic kidney disease; N18.3 Chronic kidney disease, stage 3 (moderate); W01.0XXA Fall on same level from slipping, tripping and stumbling without subsequent striking against object, initial encounter; Y93.89 Activity, other specified; Y99.8 Other external cause status; Y92.122 Bedroom in nursing home as the place of occurrence of the external cause; Z96.641 Presence of right artificial hip joint; Z96.652 Presence of left artificial knee joint; Z85.118 Personal history of other malignant neoplasm of bronchus and lung; J44.9 Chronic obstructive pulmonary disease, unspecified; Z99.81 Dependence on supplemental oxygen; E11.22 Type 2 diabetes mellitus with diabetic chronic kidney disease; E66.9 Obesity, unspecified; Z68.36 Body mass index [BMI] 36.0-36.9, adult; E89.0 Postprocedural hypothyroidism; Z90.2 Acquired absence of lung [part of]; Z87.891 Personal history of nicotine dependence; K21.9 Gastro-esophageal reflux disease without esophagitis; M06.9 Rheumatoid arthritis, unspecified; Z90.710 Acquired absence of both cervix and uterus; E11.65 Type 2 diabetes mellitus with hyperglycemia; I25.10 Atherosclerotic heart disease of native coronary artery without angina pectoris
CPT/HCPCS: 36415; 71010-TC; 72192-TC; 73502-TC-LT; 73562-TC-LT; 73610-TC-LT; 73610-TC-RT; 73630-TC-LT; 73630-TC-RT; 73700-TC-RT; 80053; 81003; 81015; 82570; 83036; 83605; 84156; 84300; 84540; 84550; 85025; 85610; 87040; 87086; 93005; 93010; 93971-TC; 97161-GP; 99284-25; J1644

== ENCOUNTER 2017-11-04 18:17 | Inpatient (IN) | payer OTHER ==
--- NOTE | 2017-11-04 19:11 | PDOC ---
History of Present Illness - General Chief Complaint: Weakness Stated Complaint: PAIN Time Seen by Provider: 11/04/17 19:11 - History of Present Illness Initial Comments: 72 yo F with h/o right hip replacement, left knee replacement, MS, OA, CVA, CKD -III, and chronic pain presenting with weakness, nausea, urinary discomfort, and depressed appetite for the past few days. She was seen by her PCP, Dr. Canada two days prior and then told to come into the ED today because her WBC was elevated to 40. Denies vomiting, diarrhea, fevers, chills, cough, SOB, or other symptoms. 11/04/17 19:18 Past History - Past Medical History Allergies/Adverse Reactions: Allergies Allergy/AdvReac Type Severity Reaction Status Date / Time Sulfa (Sulfonamide Allergy Severe Hives Verified 02/08/17 05:10 Antibiotics) Home Medications: Ambulatory Orders Amlodipine Besylate [Norvasc -] 2.5 mg PO DAILY 09/03/15 Ergocalciferol (Vitamin D2) [Drisdol] 50,000 units PO WEEKLY 09/03/15 Ferrous Sulfate [Feosol] 325 mg PO DAILY 09/03/15 Interferon Beta-1A [Avonex] 30 mcg IM WEEKLY 09/03/15 Sennosides [Senna] 8.6 mg PO DAILY PRN 09/03/15 Aspirin Coated [Ecotrin -] 81 mg PO DAILY #30 tablet.ec 09/10/15 Docusate Sodium [Colace -] 300 mg PO HS #30 capsule 09/10/15 Furosemide [Lasix -] 20 mg PO DAILY #30 tablet 09/10/15 Losartan Potassium [Cozaar -] 50 mg PO DAILY #30 tablet 09/10/15 Magnesium Oxide 400 mg PO BID #7 tablet 09/10/15 traZODone HCL [Desyrel -] 100 mg PO HS #30 tablet 09/10/15 Allopurinol [Zyloprim -] 100 mg PO DAILY #7 tablet MDD 1 02/13/17 Esomeprazole Magnesium [Nexium 24Hr] 40 mg PO DAILY 05/08/17 Tizanidine HCl 4 mg PO TID PRN #90 tablet 08/02/17 Gabapentin [Neurontin -] 400 mg PO Q8H #90 capsule 10/01/17 Oxycodone HCl/Acetaminophen [Percocet 10-325 mg Tablet] 1 each PO Q8H PRN #90 tablet MDD 3 10/29/17 Anemia: No Asthma: Yes Cancer: Yes (LUNG 2011) Cardiac Disorders: No CVA: Yes ("MINOR" ) COPD: Yes (USES OXYGEN 2L/NC PRN) CHF: No Dementia: No Diabetes: Yes () GI Disorders: Yes (ACID REFLUX,COLITIS,ULCERS) Disorders: Yes (HAD SURGERY FOR KIDNEY STONES) HTN: Yes Hypercholesterolemia: No Liver Disease: No Seizures: No Thyroid Disease: Yes (PARTIAL THYROIDECTOMY 08/02,BENIGN NODULES) - Surgical History Abdominal Surgery: No Appendectomy: Yes Cardiac Surgery: No Cholecystectomy: No Lung Surgery: Yes (2012 RIGHT lobectomy for lung cancer,NO CHEMO OR RT) Neurologic Surgery: No Orthopedic Surgery: Yes (rt hip replacement, knee replkacement) - Immunization History Immunization Up to Date: Yes - Suicide/Smoking/Psychosocial Hx Smoking Status: No Smoking History: Former smoker Have you smoked in the past 12 months: No Number of Cigarettes Smoked Daily: 0 If you are a former smoker, when did you quit?: many years ago Information on smoking cessation initiated: No Hx Alcohol Use: No Drug/Substance Use Hx: No Substance Use Type: None Hx Substance Use Treatment: No Review of Systems - Review of Systems Constitutional: Yes: Loss of Appetite. No: Chills, Diaphoresis, Fever HEENTM: No: Eye Pain, Blurred Vision, Tearing Respiratory: No: Cough, Orthopnea, Shortness of Breath, Wheezing Cardiac (ROS): No: Chest Pain, Edema, Irregular Heart Rate, Lightheadedness ABD/GI: No: Diarrhea, Nausea, Vomiting : Yes: Burning, Dysuria. No: Discharge, Frequency Musculoskeletal: Yes: Back Pain, Joint Pain, Joint Swelling, Muscle Pain, Muscle Weakness Integumentary: Yes: Erythema, Lesions, Rash. No: Bruising, Lumps, Pallor Neurological: Yes: Weakness. No: Headache, Numbness, Paresthesia Psychiatric: No: Anxiety, Depression, Frequent Crying *Physical Exam - Vital Signs Last Vital Signs Temp Pulse Resp BP Pulse Ox 98.3 F 71 18 161/63 99 11/04/17 18:34 11/04/17 18:34 11/04/17 18:34 11/04/17 18:34 11/04/17 18:57 - Physical Exam General Appearance: Yes: Nourished, Appropriately Dressed. No: Apparent Distress HEENT: positive: EOMI, KAYLEE, Normal ENT Inspection Neck: positive: Trachea midline, Normal Thyroid, Supple. negative: Tender, Rigid Respiratory/Chest: positive: Lungs Clear, Normal Breath Sounds. negative: Chest Tender, Respiratory Distress, Accessory Muscle Use Cardiovascular: positive: Regular Rhythm, Regular Rate Gastrointestinal/Abdominal: positive: Normal Bowel Sounds, Tender (diffusely tender), Soft. negative: Flat (Left upper quadrant protuberance) Musculoskeletal: positive: Decreased Range of Motion (decresed active range of motion). negative: Normal Inspection (globally weak), Muscle Spasm Extremity: positive: Normal Capillary Refill, Tender, Pedal Edema, Swelling ( right lower extremity swelling/ edema). negative: Normal Inspection Integumentary: positive: Dry, Warm, Erythema. negative: Normal Color Neurologic: positive: Fully Oriented, Alert. negative: Normal Response ( hypersentive to touch secondary to pain syndrome.), Motor Strength 5/5 ( globally weak) ED Treatment Course - LABORATORY CBC & Chemistry Diagram: 11/04/17 20:00 11/04/17 20:00 Medical Decision Making - Medical Decision Making 72 year odl female with complicated PMH including MS and chronic pain syndrome presenting with 3 days of fatigue and elevated wbc. Patient's WBC was 43 here with thrombocytosis in the 1000s. UA demonstrating mild infection and patient has erythematous inframmary folds with erythematous inguinal folds. Will admit patient for workup. I suspect that this leukocytosis is of non-infectious etiology and this may be an acute leukomoid reaction or acute presentation of a blood cell dyscrasia. Patient was given vanc and zosyn prophylactically and admitted under hospitalist service with sign out to JONAH Sylvester. 11/04/17 23:16 *DC/Admit/Observation/Transfer Diagnosis at time of Disposition: Thrombocytosis, Weakness Leukocytosis Qualifiers: Leukocytosis type: unspecified Qualified Code(s): D72.829 - Elevated white blood cell count, unspecified UTI (urinary tract infection) Qualifiers: Urinary tract infection type: acute cystitis Hematuria presence: without hematuria Qualified Code(s): N30.00 - Acute cystitis without hematuria - Discharge Dispostion Condition at time of disposition: Stable Decision to Admit order: Yes - Referrals Referrals: Bran De Leon MD [Primary Care Provider] - - Patient Instructions - Post Discharge Activity
[2017-11-04] MEDS ORDERED: morphine CARPU-JECT 4 MG/1 ML DISP.SYRIN IVPUSH ONE ×2 (19:34→23:56)
[2017-11-04 20:08] LABS: VENOUS PC02 51.4 mmHg (38-52); VENOUS PH 7.31 (7.32-7.42); VENOUS PO2 22.7 mmHg (28-48)
[2017-11-04] MEDS ORDERED: morphine SULFATE 4 MG/ML VIAL ONE ×2 (20:12→23:59)
[2017-11-04 20:16] LABS: HEMATOCRIT 29.7 % (32.4-45.2); HEMOGLOBIN 9.1 GM/dL (10.7-15.3); MCH 25.8 pg (25.7-33.7); MCHC 30.6 g/dl (32.0-36.0); MEAN CELL VOLUME 84.5 fl (80-96); MEAN PLT VOLUME 8.8 fl (7.5-11.1); RBC 3.51 M/mm3 (3.60-5.2); RDW 16.8 % (11.6-15.6)
[2017-11-04 20:21] LABS: PLATELET COUNT 1438 K/MM3 (134-434)
[2017-11-04 20:23] LABS: WHITE BLOOD COUNT 45.3 K/mm3 (4.0-10.0)
[2017-11-04 20:29] LABS: INR 1.21 (0.82-1.09); PROTHROMBIN TIME (PATIENT) 13.7 SEC (9.7-13.0)
[2017-11-04 20:32] LABS: ACTIVATED PTT 32.8 SECONDS (26.9-34.4)
--- NOTE | 2017-11-04 20:39 | PDOC ---
Attending Attestation - Resident Resident Name: Abdirahman Milligan - ED Attending Attestation I have performed the following: I have examined & evaluated the patient, The case was reviewed & discussed with the resident, I agree w/resident's findings & plan, Exceptions are as noted - HPI HPI: 11/04/17 20:43 72-year-old female with past medical history of OA, CVA, CKD, MS presents to the ED for leukocytosis of white count of 40. The patient reports 2 days of fatigue and generalized weakness and total body aches. Denies fevers or chills. Does report some mild discomfort with urination. The patient underwent routine blood work 2 days ago from her doctor's office which demonstrate a white count of 40 and the patient is directed to the ER. Patient reports feeling generally weak. She typically laboratory with a walker. However, lately she's been having poor appetite. She is also complaining about right leg pain in addition to abdominal discomfort. - Physicial Exam PE: 11/04/17 20:43 GENERAL: Awake, alert, and fully oriented, in no acute distress. HEAD: No signs of trauma EYES: PERRLA, EOMI, sclera anicteric, conjunctiva clear ENT: Auricles normal inspection, hearing grossly normal, nares patent, oropharynx clear without exudates. NECK: Normal ROM, supple LUNGS: Breath sounds equal, clear to auscultation bilaterally. No wheezes, and no crackles HEART: Regular rate and rhythm, normal S1 and S2, no murmurs, rubs or gallops ABDOMEN: Soft, TTP left upper and mid side abd. No guarding, no rebound. No masses EXTREMITIES: 1+ pitting edema b/l lower extremities. NEUROLOGICAL: Cranial nerves II through XII grossly intact. Normal speech SKIN: Warm, Dry, normal turgor, no rashes or lesions noted. - Medical Decision Making 11/04/17 20:45 Vital Signs Temp Pulse Resp BP Pulse Ox 97.2 F L 71 18 161/63 99 11/04/17 20:09 11/04/17 18:34 11/04/17 18:34 11/04/17 18:34 11/04/17 18:57 72 year old with WBC of 40. Sepsis protocol initiated. Labs, UA, Cultures. Chest xray. Likely will need IV antibiotics Admit RLE duplex to r/o DVT.
[2017-11-04 20:40] LABS: ALBUMIN 3.5 g/dl (3.4-5.0); ALK PHOS 123 U/L (45-117); ANION GAP 8 (8-16); BILIRUBIN,TOTAL 0.2 mg/dL (0.2-1.0); BLOOD UREA NITROGEN 12 mg/dL (7-18); CALCIUM 8.7 mg/dL (8.5-10.1); CHLORIDE 109 mmol/L (98-107); CO2 26 mmol/L (21-32); CREATININE 1.2 mg/dL (0.55-1.02); GLUCOSE,RANDOM 71 mg/dL (74-106); POTASSIUM 4.3 mmol/L (3.5-5.1); SGOT/AST 21 U/L (15-37); SGPT/ALT 14 U/L (12-78); SODIUM 143 mmol/L (136-145); TOT PROT 6.7 g/dl (6.4-8.2)
[2017-11-04] MEDS ORDERED: SODIUM CHLORIDE 500 ML IV STA (20:49)
[2017-11-04] MEDS ORDERED: VANCOMYCIN 1,500 MG in DEXTROSE 5%-WATER - 250 ML IVPB ONE (20:50)
[2017-11-04] MEDS ORDERED: VANCOMYCIN 1,500 MG in DEXTROSE 5%-WATER - 500 ML IVPB ONE (21:13)
[2017-11-04 21:15] LABS: ADD RBC MORPHOLOGY YES
[2017-11-04 21:18] LABS: ANISOCYTOSIS 1+; MACROCYTOSIS 1+; OVALOCYTE 1+
[2017-11-04] MEDS ORDERED: ACETAMINOPHEN INJECTION 100 ML IVPB ONE (22:10)
[2017-11-04] MEDS ORDERED: ACETAMINOPHEN 1000 MG/100 ML VIAL (NON FORMULARY) IVPB ONE (22:11)
[2017-11-04 22:16] LABS: URINE APPEARANCE CLEAR; URINE BILIRUBIN NEGATIVE (<2.0 mg/dL); URINE COLOR YELLOW; URINE GLUCOSE (UA) NEGATIVE (NEGATIVE); URINE KETONE NEGATIVE (NEGATIVE); URINE NITRITE NEGATIVE (NEGATIVE); URINE PROTEIN NEGATIVE (NEGATIVE); URINE UROBILINOGEN NEGATIVE mg/dL (0.2-1.0)
[2017-11-04 22:37] LABS: URINE LEUK ESTERASE 1+ (NEGATIVE)
[2017-11-04 22:38] LABS: URINE BACTERIA RARE /hpf (NONE SEEN); URINE HYALINE CAST 1 /lpf; URINE MUCUS RARE
--- NOTE | 2017-11-04 23:24 | HP ---
CHIEF COMPLAINT: Generalized Weakness, Fatigue PCP: Dr. Menchaca HISTORY OF PRESENT ILLNESS: 72-year-old female with past medical history of MS, OA, CVA, CKD. Who presents to the ED for leukocytosis of white count of 40. The patient reports 2 days of fatigue and generalized weakness and total body aches. Denies fevers or chills. Does report some mild discomfort with urination. The patient underwent routine blood work 2 days ago from her doctor's office which demonstrate a white count of 40 and the patient is directed to the ER. Patient reports feeling generally weak. She typically laboratory with a walker. However, lately she's been having poor appetite. She is also complaining about right leg pain in addition to abdominal discomfort. 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 Family History: Allergies Sulfa (Sulfonamide Antibiotics) Allergy (Severe, Verified 02/08/17 05:10) Hives peanuts,peas,tomatoes HOME MEDICATIONS: Home Medications Medication Instructions Recorded Amlodipine Besylate [Norvasc -] 2.5 mg PO DAILY 09/03/15 Ergocalciferol (Vitamin D2) 50,000 units PO WEEKLY 09/03/15 [Drisdol] Ferrous Sulfate [Feosol] 325 mg PO DAILY 09/03/15 Interferon Beta-1A [Avonex] 30 mcg IM WEEKLY 09/03/15 Sennosides [Senna] 8.6 mg PO DAILY PRN 09/03/15 Aspirin Coated [Ecotrin -] 81 mg PO DAILY #30 tablet.ec 09/10/15 Docusate Sodium [Colace -] 300 mg PO HS #30 capsule 09/10/15 Furosemide [Lasix -] 20 mg PO DAILY #30 tablet 09/10/15 Losartan Potassium [Cozaar -] 50 mg PO DAILY #30 tablet 09/10/15 Magnesium Oxide 400 mg PO BID #7 tablet 09/10/15 traZODone HCL [Desyrel -] 100 mg PO HS #30 tablet 09/10/15 Allopurinol [Zyloprim -] 100 mg PO DAILY #7 tablet MDD 1 02/13/17 Esomeprazole Magnesium [Nexium 40 mg PO DAILY 05/08/17 24Hr] Tizanidine HCl 4 mg PO TID PRN #90 tablet 08/02/17 Gabapentin [Neurontin -] 400 mg PO Q8H #90 capsule 10/01/17 Oxycodone HCl/Acetaminophen 1 each PO Q8H PRN #90 tablet MDD 3 10/29/17 [Percocet 10-325 mg Tablet] REVIEW OF SYSTEMS CONSTITUTIONAL: generalized weakness, malaise, loss of appetite Absent: fever, chills, diaphoresis, weight change HEENT: Absent: rhinorrhea, nasal congestion, throat pain, throat swelling, difficulty swallowing, mouth swelling, ear pain, eye pain, visual changes CARDIOVASCULAR: peripheral edema Absent: chest pain, syncope, palpitations, irregular heart rate, lightheadedness RESPIRATORY: Absent: cough, shortness of breath, dyspnea with exertion, orthopnea, wheezing, stridor, hemoptysis GASTROINTESTINAL:abdominal pain Absent: abdominal distension, nausea, vomiting, diarrhea, constipation, melena , hematochezia GENITOURINARY: dysuria Absent: frequency, urgency, hesitancy, hematuria, flank pain, genital pain MUSCULOSKELETAL: myalgia, arthralgia, back pain Absent: joint swelling, neck pain SKIN: Absent: rash, itching, pallor HEMATOLOGIC/IMMUNOLOGIC: Absent: easy bleeding, easy bruising, lymphadenopathy, frequent infections ENDOCRINE: Absent: unexplained weight gain, unexplained weight loss, heat intolerance, cold intolerance NEUROLOGIC: Absent: headache, focal weakness or paresthesias, dizziness, unsteady gait, seizure, mental status changes, bladder or bowel incontinence PSYCHIATRIC: Absent: anxiety, depression, suicidal or homicidal ideation, hallucinations. PHYSICAL EXAMINATION Vital Signs - 24 hr 11/04/17 11/04/17 11/04/17 18:34 18:57 20:09 Temperature 98.3 F 97.2 F L Pulse Rate 71 Respiratory 18 Rate Blood Pressure 161/63 O2 Sat by Pulse 99 99 Oximetry (%) GENERAL: Severe Obesity, wake, alert, and fully oriented, in no acute distress. HEAD: Normal with no signs of trauma. EYES: Pupils equal, round and reactive to light, extraocular movements intact, sclera anicteric, conjunctiva clear. No lid lag. EARS, NOSE, THROAT: Ears normal, nares patent, oropharynx clear without exudates. Dry mucous membranes, no dentition NECK: Normal range of motion, supple without lymphadenopathy, JVD, or masses. LUNGS: Breath sounds equal, clear to auscultation bilaterally. No wheezes, and no crackles. No accessory muscle use. HEART: Regular rate and rhythm, normal S1 and S2 without murmur, rub or gallop. ABDOMEN: Obese, soft, generalized tenderness, not distended, normoactive bowel sounds, no guarding, no rebound, no masses. No hepatomegaly or splenomegaly. MUSCULOSKELETAL: Limited range of motion at all joints. No bony deformities or tenderness. No CVA tenderness. UPPER EXTREMITIES: 2+ pulses, warm, well-perfused. No cyanosis. No clubbing. No peripheral edema. LOWER EXTREMITIES: 2+ pulses, warm, well-perfused. No calf tenderness. +2 pitting B/L peripheral edema. NEUROLOGICAL: Cranial nerves II-XII intact. Normal speech. Gait not observed. PSYCHIATRIC: Cooperative. Good eye contact. Somber mood and affect, tearful. SKIN: Warm, dry, normal turgor, no rashes or lesions noted, normal capillary refill. Laboratory Results - last 24 hr 11/04/17 11/04/17 11/04/17 20:00 20:00 20:00 WBC 45.3 H* RBC 3.51 L Hgb 9.1 L Hct 29.7 L MCV 84.5 MCH 25.8 MCHC 30.6 L RDW 16.8 H Plt Count 1438 H MPV 8.8 Neutrophils % 54.0 D Lymphocytes % 10.0 Monocytes % 5.0 Basophils % 3.0 H D Nucleated RBC % 0 Platelet Estimate Platelet Comment Polychromasia 1+ Poikilocytosis 1+ Anisocytosis 1+ Macrocytosis 1+ Ovalocytes 1+ PT with INR 13.70 H INR 1.21 H PTT (Actin FS) 32.8 VBG pH 7.31 L POC VBG pCO2 51.4 POC VBG pO2 22.7 L Mixed VBG HCO3 25.3 H Sodium Potassium Chloride Carbon Dioxide Anion Gap BUN Creatinine Creat Clearance w eGFR Random Glucose Lactic Acid Calcium Total Bilirubin AST ALT Alkaline Phosphatase Troponin I Total Protein Albumin Urine Color Urine Appearance Urine pH Ur Specific Flora Urine Protein Urine Glucose (UA) Urine Ketones Urine Blood Urine Nitrite Urine Bilirubin Urine Urobilinogen Ur Leukocyte Esterase Urine WBC (Auto) Urine RBC (Auto) Urine Bacteria Hyaline Casts Urine Mucus 11/04/17 11/04/17 11/04/17 20:00 20:00 20:00 WBC RBC Hgb Hct MCV MCH MCHC RDW Plt Count MPV Neutrophils % Lymphocytes % Monocytes % Basophils % Nucleated RBC % Platelet Estimate Platelet Comment Polychromasia Poikilocytosis Anisocytosis Macrocytosis Ovalocytes PT with INR INR PTT (Actin FS) VBG pH POC VBG pCO2 POC VBG pO2 Mixed VBG HCO3 Sodium 143 Potassium 4.3 Chloride 109 H Carbon Dioxide 26 Anion Gap 8 BUN 12 Creatinine 1.2 H Creat Clearance w eGFR 44.16 Random Glucose 71 L Lactic Acid 1.1 Calcium 8.7 Total Bilirubin 0.2 AST 21 ALT 14 Alkaline Phosphatase 123 H Troponin I < 0.02 Total Protein 6.7 Albumin 3.5 Urine Color Urine Appearance Urine pH Ur Specific Flora Urine Protein Urine Glucose (UA) Urine Ketones Urine Blood Urine Nitrite Urine Bilirubin Urine Urobilinogen Ur Leukocyte Esterase Urine WBC (Auto) Urine RBC (Auto) Urine Bacteria Hyaline Casts Urine Mucus 11/04/17 21:05 WBC RBC Hgb Hct MCV MCH MCHC RDW Plt Count MPV Neutrophils % Lymphocytes % Monocytes % Basophils % Nucleated RBC % Platelet Estimate Platelet Comment Polychromasia Poikilocytosis Anisocytosis Macrocytosis Ovalocytes PT with INR INR PTT (Actin FS) VBG pH POC VBG pCO2 POC VBG pO2 Mixed VBG HCO3 Sodium Potassium Chloride Carbon Dioxide Anion Gap BUN Creatinine Creat Clearance w eGFR Random Glucose Lactic Acid Calcium Total Bilirubin AST ALT Alkaline Phosphatase Troponin I Total Protein Albumin Urine Color Yellow Urine Appearance Clear Urine pH 6.0 Ur Specific Flora 1.016 Urine Protein Negative Urine Glucose (UA) Negative Urine Ketones Negative Urine Blood Negative Urine Nitrite Negative Urine Bilirubin Negative Urine Urobilinogen Negative Ur Leukocyte Esterase 1+ H Urine WBC (Auto) 16 Urine RBC (Auto) 6 Urine Bacteria Rare Hyaline Casts 1 Urine Mucus Rare ASSESSMENT/PLAN: 72 y/o woman PMHx: MS, OA, CVA, CKD. Placed in Observation for Generalized Weakness secondary to UTI, Chronic Pain, Difficulty Ambulating. Plan: FEN - PO fluids as tolerated - Replete lytes prn - Calorie Carb Control Diet DVT ppx - OOB - SCDs - Heparin SQ Code Status: Full Code Problem List - Problem (1) Weakness Assessment/Plan: - Likely secondary to MS Flare vs Chronic Pain - Monitor CBC, BMP - Gentle IVF - Monitor vitals - Appreciate PT consult for conditioning Code(s): R53.1 - WEAKNESS (2) Multiple sclerosis Assessment/Plan: - Continue home meds Code(s): G35 - MULTIPLE SCLEROSIS (3) UTI (urinary tract infection) Assessment/Plan: - Urine Culture-pending - Given Vancomycin for ?sepsis - Will treat with Levaquin - Monitor vitals Code(s): N39.0 - URINARY TRACT INFECTION, SITE NOT SPECIFIED Qualifiers: Urinary tract infection type: acute cystitis Hematuria presence: without hematuria Qualified Code(s): N30.00 - Acute cystitis without hematuria (4) Leukocytosis Assessment/Plan: - Likely secondary to UTI vs Inflammatory response vs Malignancy - Repeat CBC in am - Appreciate Hematology Consult - Continue ABX - Monitor vitals Code(s): D72.829 - ELEVATED WHITE BLOOD CELL COUNT, UNSPECIFIED Qualifiers: Leukocytosis type: unspecified Qualified Code(s): D72.829 - Elevated white blood cell count, unspecified (5) Thrombocytosis Assessment/Plan: - See Above Code(s): D47.3 - ESSENTIAL (HEMORRHAGIC) THROMBOCYTHEMIA (6) Hypertension Assessment/Plan: - Monitor BP - Continue home meds - Monitor renal function Code(s): I10 - ESSENTIAL (PRIMARY) HYPERTENSION (7) Anxiety and depression Assessment/Plan: - Continue home meds - FU with psych outpatient Code(s): F41.9 - ANXIETY DISORDER, UNSPECIFIED; F32.9 - MAJOR DEPRESSIVE DISORDER, SINGLE EPISODE, UNSPECIFIED (8) Asthma Assessment/Plan: - Continue home meds Code(s): J45.909 - UNSPECIFIED ASTHMA, UNCOMPLICATED (9) Cervical stenosis of spine Assessment/Plan: - Continue home meds Code(s): M48.02 - SPINAL STENOSIS, CERVICAL REGION (10) Chronic pain of multiple joints Assessment/Plan: - Continue home meds - FU with pain management outpatient Code(s): M25.50 - PAIN IN UNSPECIFIED JOINT; G89.29 - OTHER CHRONIC PAIN (11) Chronic renal insufficiency, stage III (moderate) Code(s): N18.3 - CHRONIC KIDNEY DISEASE, STAGE 3 (MODERATE) (12) Degenerative disc disease Assessment/Plan: - Continue home meds Code(s): [id number] - (13) History of CVA (cerebrovascular accident) Assessment/Plan: -Fall precautions Code(s): Z86.73 - PRSNL HX OF TIA (TIA), AND CEREB INFRC W/O RESID DEFICITS (14) Osteoarthritis Assessment/Plan: - Continue home meds Code(s): M19.90 - UNSPECIFIED OSTEOARTHRITIS, UNSPECIFIED SITE Qualifiers: Osteoarthritis location: unspecified site Visit type - Emergency Visit Emergency Visit: Yes ED Registration Date: 11/04/17 Care time: The patient presented to the Emergency Department on the above date and was hospitalized for further evaluation of their emergent condition. - New Patient This patient is new to me today: Yes Date on this admission: 11/04/17 - Critical Care Critical Care patient: No Hospitalist Screening - Colonoscopy Questionnaire Colonoscopy Questionnaire: Colonoscopy Questionnaire - Patient: 50 - 75 years old and never had a screening colonoscopy: No History of colon or rectal polyps, or CA: No History of IBD, Crohn's disease or UC: No History of abdominal radiation therapy as a child: No - Relative: 1 with colon or rectal CA, or polyps at age 60 or younger: No Colon or rectal CA diagnosed at age 45 or younger: No Multiple relatives with colon or rectal CA: No - Outcome: Screening Result: Negative Screen
[2017-11-05] MEDS ORDERED: TIZANIDINE HCL 4 MG TABLET PO PRN (00:52)
[2017-11-05] MEDS ORDERED: oxyCODONE HCL 5 MG TABLET PO PRN (01:16)
[2017-11-05] MEDS ORDERED: ACETAMINOPHEN 325 MG TABLET (FP) PO PRN (01:16)
[2017-11-05] MEDS: oxyCODONE HCL 5 MG TABLET PO PRN (05:12)
[2017-11-05] MEDS: ACETAMINOPHEN 325 MG TABLET (FP) PO PRN (05:13)
[2017-11-05] MEDS: HEPARIN NA (PORCINE) 5,000 UNITS/ML 1ML VIAL SQ SCH ×3 (07:39→23:29)
[2017-11-05] MEDS: GABAPENTIN 400 MG CAPSULE (FP) PO SCH ×3 (07:39→23:29)
--- NOTE | 2017-11-05 08:43 | EKG ---
Test Reason : Blood Pressure : / mmHG Vent. Rate : 070 BPM Atrial Rate : 070 BPM P-R Int : 132 ms QRS Dur : 080 ms QT Int : 412 ms P-R-T Axes : 100 085 044 degrees QTc Int : 444 ms NORMAL SINUS RHYTHM NORMAL ECG WHEN COMPARED WITH ECG OF 08-FEB-2017 06:12, NO SIGNIFICANT CHANGE WAS FOUND BASELINE ARTIFACT Confirmed by HERMINIA ALMEIDA, GENOVEVA ([id number]) on 11/05/2017 8:43:14 AM Referred By: Confirmed By:GENOVEVA HOPE MD
--- NOTE | 2017-11-05 09:31 | PN ---
Progress Note, Physician - Current Medication List Current Medications: Active Medications Acetaminophen (Tylenol -) 325 mg PO Q8H PRN PRN Reason: PAIN LEVEL 6-10 Last Admin: 11/05/17 05:13 Dose: 325 mg Amlodipine Besylate (Norvasc -) 2.5 mg PO DAILY [facility] Aspirin (Ecotrin -) 81 mg PO DAILY [facility] Docusate Sodium (Colace -) 300 mg PO HS [facility] Ferrous Sulfate (Feosol -) 325 mg PO DAILY [facility] Furosemide (Lasix -) 20 mg PO DAILY [facility] Gabapentin (Neurontin -) 400 mg PO TID [facility] Last Admin: 11/05/17 07:39 Dose: 400 mg Heparin Sodium (Porcine) (Heparin -) 5,000 unit SQ TID [facility] Last Admin: 11/05/17 07:39 Dose: 5,000 unit Hydromorphone HCl (Dilaudid -) 2 mg PO Q4HWA PRN PRN Reason: PAIN LEVEL 4 - 6 Levofloxacin (Levaquin -) 250 mg PO DAILY@0600 [facility] Last Admin: 11/05/17 09:02 Dose: 250 mg Losartan Potassium (Cozaar -) 50 mg PO DAILY [facility] Oxycodone HCl (Roxicodone -) 10 mg PO Q8H PRN PRN Reason: PAIN LEVEL 6-10 Last Admin: 11/05/17 05:12 Dose: 10 mg Pantoprazole Sodium (Protonix -) 40 mg PO DAILY [facility] Senna (Senna -) 1 tab PO DAILY PRN PRN Reason: CONSTIPATION - Objective Vital Signs: Vital Signs Temperature 98.4 F 11/05/17 06:16 Pulse Rate 103 H 11/05/17 06:16 Respiratory Rate 20 11/05/17 06:16 Blood Pressure 101/86 11/05/17 06:16 O2 Sat by Pulse Oximetry (%) 99 11/05/17 05:00 Labs: CBC, BMP 11/04/17 20:00 11/04/17 20:00 INR, PTT INR 1.21 (0.82-1.09) H 11/04/17 20:00 Problem List - Problems (1) UTI (urinary tract infection) Assessment/Plan: - Urine Culture-pending - Given Vancomycin for ?sepsis - Will treat with Levaquin - Monitor vitals -id consult Code(s): N39.0 - URINARY TRACT INFECTION, SITE NOT SPECIFIED Qualifiers: Urinary tract infection type: acute cystitis Hematuria presence: without hematuria Qualified Code(s): N30.00 - Acute cystitis without hematuria (2) Leukocytosis Assessment/Plan: - Likely secondary to UTI vs Inflammatory response vs Malignancy - Repeat CBC in am - Appreciate Hematology Consult - Continue ABX - Monitor vitals Code(s): D72.829 - ELEVATED WHITE BLOOD CELL COUNT, UNSPECIFIED Qualifiers: Leukocytosis type: unspecified Qualified Code(s): D72.829 - Elevated white blood cell count, unspecified (3) Anxiety and depression Assessment/Plan: - Continue home meds - FU with psych outpatient Code(s): F41.9 - ANXIETY DISORDER, UNSPECIFIED; F32.9 - MAJOR DEPRESSIVE DISORDER, SINGLE EPISODE, UNSPECIFIED (4) Diabetes Assessment/Plan: -bgm -endo Code(s): E11.9 - TYPE 2 DIABETES MELLITUS WITHOUT COMPLICATIONS Qualifiers: Diabetes mellitus type: type 2 (5) Chronic pain of multiple joints Assessment/Plan: (9) Cervical stenosis of spine/Degenerative disc disease - Continue home meds - FU with pain management outpatient -add dilaudid Code(s): M25.50 - PAIN IN UNSPECIFIED JOINT; G89.29 - OTHER CHRONIC PAIN (6) Multiple sclerosis Assessment/Plan: -home meds Code(s): G35 - MULTIPLE SCLEROSIS (7) Weakness Assessment/Plan: - Likely secondary to MS Flare vs Chronic Pain - Monitor CBC, BMP - Gentle IVF - Monitor vitals - Appreciate PT consult for conditioning Code(s): R53.1 - WEAKNESS
[2017-11-05] MEDS ORDERED: LOSARTAN POTASSIUM 50 MG TABLET (FP) PO SCH (10:00)
[2017-11-05 10:07] LABS: HEMATOCRIT 29.6 % (32.4-45.2); HEMOGLOBIN 9.1 GM/dL (10.7-15.3); MCH 25.8 pg (25.7-33.7); MCHC 30.8 g/dl (32.0-36.0); MEAN PLT VOLUME 8.5 fl (7.5-11.1); RBC 3.53 M/mm3 (3.60-5.2); RDW 16.2 % (11.6-15.6)
[2017-11-05 10:20] LABS: PLATELET COUNT 1395 K/MM3 (134-434)
[2017-11-05] MEDS: ASPIRIN COATED 81 MG TABLET.EC PO SCH (10:23)
[2017-11-05] MEDS: LOSARTAN POTASSIUM 50 MG TABLET (FP) PO SCH (10:23)
[2017-11-05] MEDS: HYDROmorphone HCL 2 MG TABLET PO PRN ×3 (10:23→23:31)
[2017-11-05] MEDS: FERROUS SO4 325 MG TABLET (FP) PO SCH (10:24)
[2017-11-05] MEDS: FUROSEMIDE 20 MG TABLET (FP) PO SCH (10:24)
[2017-11-05] MEDS: PANTOPRAZOLE 40 MG TABLET (FP) PO SCH (10:24)
[2017-11-05] MEDS: amLODIPine BESYLATE 2.5 MG TABLET (FP) PO SCH (10:24)
[2017-11-05 10:25] LABS: ANION GAP 6 (8-16); BLOOD UREA NITROGEN 8 mg/dL (7-18); CALCIUM 8.7 mg/dL (8.5-10.1); CHLORIDE 110 mmol/L (98-107); CO2 26 mmol/L (21-32); GLUCOSE,RANDOM 73 mg/dL (74-106); SODIUM 142 mmol/L (136-145)
[2017-11-05 10:32] LABS: WHITE BLOOD COUNT 51.4 K/mm3 (4.0-10.0)
--- NOTE | 2017-11-05 10:32 | CONSULT ---
Consult Consult Specialty:: Hematology - History of Present Illness History of Present Illness: 72-year-old female with past medical history of MS, OA, CVA, CKD. Who presents to the ED for leukocytosis of white count of 40. The patient reports 2 days of fatigue and generalized weakness and total body aches. Denies fevers or chills. Does report some mild discomfort with urination. The patient underwent routine blood work 2 days ago from her doctor's office which demonstrate a white count of 40 and the patient is directed to the ER. Patient reports feeling generally weak. She typically laboratory with a walker. However, lately she's been having poor appetite. She is also complaining about right leg pain in addition to abdominal discomfort. 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: 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 Cardio/Vascular: Yes: HTN Pulmonary: Yes: Asthma, COPD Gastrointestinal: Yes: GERD (using walker at home ) Renal/: Yes: Renal Inusuff ...: No Heme/Onc: Yes: Anemia Psych: Yes: Depression Musculoskeletal: Yes: Osteoarthritis, Other (DDD) Rheumatology: Yes: Rheumatoid Arthritis Endocrine: Yes: Diabetes Mellitus Additional Medical History: as in HPI, morbidly obese - Past Surgical History Past Surgical History: Yes: Hysterectomy, Joint Replacement, Cholecystectomy - Alcohol/Substance Use Hx Alcohol Use: No History of Substance Use: reports: None - Smoking History Smoking history: Former smoker Have you smoked in the past 12 months: No Aproximately how many cigarettes per day: 0 If you are a former smoker, when did you quit?: many years ago - Social History Usual Living Arrangement: With Significant Other ADL: Independent History of Recent Travel: No Home Medications - Allergies Allergies/Adverse Reactions: Allergies Allergy/AdvReac Type Severity Reaction Status Date / Time Sulfa (Sulfonamide Allergy Severe Hives Verified 02/08/17 05:10 Antibiotics) - Home Medications Home Medications: Ambulatory Orders Amlodipine Besylate [Norvasc -] 2.5 mg PO DAILY 09/03/15 Ergocalciferol (Vitamin D2) [Drisdol] 50,000 units PO WEEKLY 09/03/15 Ferrous Sulfate [Feosol] 325 mg PO DAILY 09/03/15 Interferon Beta-1A [Avonex] 30 mcg IM WEEKLY 09/03/15 Sennosides [Senna] 8.6 mg PO DAILY PRN 09/03/15 Aspirin Coated [Ecotrin -] 81 mg PO DAILY #30 tablet.ec 09/10/15 Docusate Sodium [Colace -] 300 mg PO HS #30 capsule 09/10/15 Furosemide [Lasix -] 20 mg PO DAILY #30 tablet 09/10/15 Losartan Potassium [Cozaar -] 50 mg PO DAILY #30 tablet 09/10/15 Magnesium Oxide 400 mg PO BID #7 tablet 09/10/15 traZODone HCL [Desyrel -] 100 mg PO HS #30 tablet 09/10/15 Allopurinol [Zyloprim -] 100 mg PO DAILY #7 tablet MDD 1 02/13/17 Esomeprazole Magnesium [Nexium 24Hr] 40 mg PO DAILY 05/08/17 Tizanidine HCl 4 mg PO TID PRN #90 tablet 08/02/17 Gabapentin [Neurontin -] 400 mg PO Q8H #90 capsule 10/01/17 Oxycodone HCl/Acetaminophen [Percocet 10-325 mg Tablet] 1 each PO Q8H PRN #90 tablet MDD 3 10/29/17 Family Disease History - Family Disease History Family Disease History: CA: Mother (, cancer), Other: Father ( - does not know why), Brother (pain - arthritis), Sister (four sisters - little contact), Son (one living healthy), Daughter (one living healthy) Review of Systems - Review of Systems Constitutional: reports: Loss of Appetite, Unintentional Wgt. Loss, Weakness. denies: Fever, Lethargy Neurological: reports: Headache Physical Exam Vital Signs: Vital Signs Temperature 98.4 F 11/05/17 06:16 Pulse Rate 103 H 11/05/17 06:16 Respiratory Rate 20 11/05/17 06:16 Blood Pressure 101/86 11/05/17 06:16 O2 Sat by Pulse Oximetry (%) 99 11/05/17 05:00 Constitutional: Yes: Moderate Distress HENT: Yes: Atraumatic, Normocephalic Neck: Yes: Supple Cardiovascular: Yes: Regular Rate and Rhythm Respiratory: Yes: Regular Gastrointestinal: Yes: Soft, Abdomen, Obese, Tenderness Edema: Yes Neurological: Yes: Confusion Labs: CBC, BMP 11/05/17 09:03 Imaging - Results Cat Scan: Report Reviewed Problem List - Problems (1) Leukocytosis Code(s): D72.829 - ELEVATED WHITE BLOOD CELL COUNT, UNSPECIFIED Qualifiers: Leukocytosis type: unspecified Qualified Code(s): D72.829 - Elevated white blood cell count, unspecified (2) Thrombocytosis Code(s): D47.3 - ESSENTIAL (HEMORRHAGIC) THROMBOCYTHEMIA (3) Chronic pain of multiple joints Code(s): M25.50 - PAIN IN UNSPECIFIED JOINT; G89.29 - OTHER CHRONIC PAIN Assessment/Plan Hematological parameters suspicious for MPD. Noted in the past ,this has been the highest. send flow/JAK2/BCR-ABL r/o TLS. check iron stores IVF check ESR/VWD/HALIMA/RF CT abdomen noted: Normal spleen No cytoreduction for now as pending to r/o a malignant etiology ?diffuse body pains etiology -as per her home visitor, this is new.
[2017-11-05 10:33] LABS: ADD RBC MORPHOLOGY YES
--- NOTE | 2017-11-05 10:38 | PN ---
Progress Note (short form) - Note Progress Note: ID consult dictated imp/reccd leukocytosis/thrombocytosis diffuse myalgias uti-but doubt this explains what is going on cultures rectal temp- imaging pending- abd/head/duplex given vanco in ED last night add zosyn-empiric coverage UTI pending cultures/imaging f/u imaging needs hematology evaluation asked lab to do manual diff add on CPK and LDH chronic pain Problem List - Problems (1) Leukocytosis Code(s): D72.829 - ELEVATED WHITE BLOOD CELL COUNT, UNSPECIFIED Qualifiers: Leukocytosis type: unspecified Qualified Code(s): D72.829 - Elevated white blood cell count, unspecified (2) Thrombocytosis Code(s): D47.3 - ESSENTIAL (HEMORRHAGIC) THROMBOCYTHEMIA (3) UTI (urinary tract infection) Code(s): N39.0 - URINARY TRACT INFECTION, SITE NOT SPECIFIED Qualifiers: Urinary tract infection type: acute cystitis Hematuria presence: without hematuria Qualified Code(s): N30.00 - Acute cystitis without hematuria (4) Chronic pain of multiple joints Code(s): M25.50 - PAIN IN UNSPECIFIED JOINT; G89.29 - OTHER CHRONIC PAIN
[2017-11-05] MEDS ORDERED: VANCOMYCIN 1,000 MG in DEXTROSE 5%-WATER - 250 ML IVPB SCH (10:45)
[2017-11-05 10:51] LABS: INR 1.24 (0.82-1.09)
[2017-11-05 11:06] LABS: LDH 352 U/L (84-246); URIC ACID 6.8 mg/dL (2.6-7.2)
[2017-11-05] MEDS ORDERED: DEXTROSE 5%-WATER - 50 ML IVPB ONE ×3 (11:58→23:34)
[2017-11-05] MEDS ORDERED: PIPERACILLIN/TAZOBACTAM 3.375 GM VIAL IVPB ONE ×3 (11:58→23:34)
[2017-11-05] MEDS: PIPERACILLIN/TAZOB 3.375 GM 3.375 GM in DEXTROSE 5%-WATER - 50 ML IVPB SCH ×2 (12:10→18:04)
[2017-11-05 12:34] LABS: ANISOCYTOSIS 1`; PLATELET ESTIMATE SIGNIFICANT INCREASE; SMUDGE CELLS FEW
--- NOTE | 2017-11-05 12:48 | CONS ---
DATE OF CONSULTATION: DATE OF DICTATION: 11/05/2017 REQUESTED BY: Justina Menchaca MD This is a 72-year-old woman, history of multiple sclerosis. She lives alone at home. She has had a right total hip replacement, left total knee replacement. She also has chronic pain and is followed by Pain Management. She was admitted for leukocytosis. The patient reports that she has been feeling lousy this whole week. She has had increase in her total body pain. She has been having severe myalgia all week. On , she went to see her doctor, who did blood tests, and he called her and asked her to come to the emergency room. She denies nausea vomiting. She has no diarrhea or dysuria. She denies any fevers or chills. She has had very poor appetite and is very anxious. Her past medical history is notable for a history of multiple sclerosis, hypertension, diabetes, lung cancer, osteoarthritis, stroke, chronic kidney disease. Surgical history is notable for right total hip replacement, left total knee replacement, partial hysterectomy, right lung lobectomy, cholecystectomy, and hysterectomy. She is allergic to SULFA. Her medications at home include trazodone, tizanidine, senna, Percocet, magnesium oxide, losartan, Avonex, gabapentin, furosemide, Feosol, Nexium, vitamin D, Colace, Ecotrin, Norvasc, and allopurinol. SOCIAL HISTORY: She lives alone. She uses a motorized wheelchair for ambulation. Her review of systems is as per history of present illness. PHYSICAL EXAMINATION: General: She is very anxious. She is awake and alert. Vital Signs: Temperature is 98.4. Pulse of 103. Blood pressure 101/86. Respiratory rate 20. She is saturating 99% on room air. She weighs 200 pounds. HEENT: She is normocephalic. Her eyes are anicteric. Neck: She has no nuchal rigidity. She, interestingly, everywhere you touch her skin, she complains of severe pain. Heart: Regular rate and rhythm. Lungs: Clear. Abdomen: Soft. She has no gross distention. She has bowel sounds but she complains of abdominal pain when touched only. Extremities: Her extremities have bilateral edema. She has a well-healed scar on her left knee and on her right hip. Her labs are notable for a white count of 45.3. On Sunday, her white count was 40.8. In August of this year, her white count was 32,000. This all accompanied as well by anemia, hemoglobin is 9.1, and platelet count is elevated at 1438. Her chemistries are notable for a BUN of 12 and creatinine 1.2. Her alkaline phosphatase is 123. Albumin is 3.5. Her urinalysis has 1+ leukocytes, with 16 white cells. Cultures have been sent. Her last culture was in August of this year when she had an E coli in her urine that was bunch-sensitive. She received vancomycin and Zosyn in the emergency room last night. CAT scan of the abdomen is pending. Head CT has been ordered. She has duplex of the legs that are pending as well. In summary, this is an elderly woman with evidence of a chronic hematologic process with leukocytosis and thrombocytosis. CAT scans are pending. Appears progressive, which suggests to me a hematologic etiology. Would for now continue antibiotics. She received a dose of vancomycin last night. She has had a prior urine as well. Recent urine culture was a bunch-sensitive E coli so would cover her as well for urinary tract infection while awaiting results of her imaging. Would definitely recommend a hematologic evaluation at this time. Further recommendations to follow. LAURITA ELDRIDGE M.D. [id number]
--- NOTE | 2017-11-05 12:59 | PN ---
Progress Note (short form) - Note Progress Note: Vascular Surgery Pt seen and examined Pain out of proportion to exam. Hematology note appreciated - MPD. Right lower ext with no DVt. Right popliteal fossa examined. No areas of swelling, discoloration, or pain. Could be a cystic structure. However cannot palpate it on exam. No need for any intervention at this time. Medical management. Eleuterio melissa DO
--- NOTE | 2017-11-05 13:00 | CON.PSY ---
Psychiatry Consult Chief Complaint: Patient seen and spoke to her aid> no history of Psych illness. She had been ok until last Sunday. She began reporting pain all over her bidy and has been unable to walk. Symptoms: reports: Depressed Mood - Previous Psychiatric Treatment Outpatient: None Inpatient: None - Previous Substance Abuse Treatment Outpatient: None Inpatient: None - Current Medications Current Medications: Active Medications Acetaminophen (Tylenol -) 325 mg PO Q8H PRN PRN Reason: PAIN LEVEL 6-10 Last Admin: 11/05/17 05:13 Dose: 325 mg Amlodipine Besylate (Norvasc -) 2.5 mg PO DAILY [facility] Last Admin: 11/05/17 10:24 Dose: 2.5 mg Aspirin (Ecotrin -) 81 mg PO DAILY [facility] Last Admin: 11/05/17 10:23 Dose: 81 mg Docusate Sodium (Colace -) 300 mg PO [facility] Duloxetine HCl (Cymbalta -) 20 mg PO ONCE ONE Stop: 11/05/17 12:55 Ferrous Sulfate (Feosol -) 325 mg PO DAILY [facility] Last Admin: 11/05/17 10:24 Dose: 325 mg Furosemide (Lasix -) 20 mg PO DAILY [facility] Last Admin: 11/05/17 10:24 Dose: 20 mg Gabapentin (Neurontin -) 400 mg PO TID [facility] Last Admin: 11/05/17 07:39 Dose: 400 mg Heparin Sodium (Porcine) (Heparin -) 5,000 unit SQ TID [facility] Last Admin: 11/05/17 07:39 Dose: 5,000 unit Hydromorphone HCl (Dilaudid -) 2 mg PO Q4HWA PRN PRN Reason: PAIN LEVEL 4 - 6 Last Admin: 11/05/17 10:23 Dose: 2 mg Piperacillin Sod/Tazobactam (Sod 3.375 gm/ Dextrose) 50 mls @ 100 mls/hr IVPB Q8H-IV [facility]; Protocol Last Admin: 11/05/17 12:10 Dose: 100 mls/hr Losartan Potassium (Cozaar -) 50 mg PO DAILY [facility] Last Admin: 11/05/17 10:23 Dose: 50 mg Oxycodone HCl (Roxicodone -) 10 mg PO Q8H PRN PRN Reason: PAIN LEVEL 6-10 Last Admin: 11/05/17 05:12 Dose: 10 mg Pantoprazole Sodium (Protonix -) 40 mg PO DAILY [facility] Last Admin: 11/05/17 10:24 Dose: 40 mg Senna (Senna -) 1 tab PO DAILY PRN PRN Reason: CONSTIPATION - Allergies Allergies: Allergies Allergy/AdvReac Type Severity Reaction Status Date / Time Sulfa (Sulfonamide Allergy Severe Hives Verified 02/08/17 05:10 Antibiotics) - Current Living Status Usual Living Arrangement: Alone - Current Mental Status Evaluation Appearance: Disheveled Attitude: Guarded - Affect Affect: Constrictive Appropriateness: Appropriate to Content - Mood Mood: Anxious - Speech/Language Expressive: Coherent - Psychomotor Activity Psychomotor Activity: Agitated - Thought Process Thought Process: Circumstantial - Thought Content Hallucinations: Absent Delusions: Absent - Cognition Attention: Alert Orientation: Time Memory, Immediate Recall: Intact - Concentration Serial Sevens Intact: No Simple Calculations Intact: No - Abstraction Proverb Interpretation: Intact Judgement: Minimally Impaired - Insight Insight: Intact - Impulse Control Impulse Control: Minimally Impaired - Suicidal Ideation Suicidal Ideation: No - Homicidal Ideation Homicidal Ideation: No Assessment/Plan 1) patient is not suicidal, very anxious with pain. 2) Cymbalta 20mg po od.
[2017-11-05] MEDS ORDERED: DULoxetine HCL 20 MG CAPSULE.DR (FP) PO ONE (13:30)
[2017-11-05] MEDS: SENNOSIDES 8.6MG TABLET (FP) PO PRN ×2 (15:51→23:36)
--- NOTE | 2017-11-05 15:51 | CON.NEURO ---
Consult - Past Medical History [employer]INE [employer]ATOR: Yes: 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 Cardio/Vascular: Yes: HTN Pulmonary: Yes: Asthma, COPD Gastrointestinal: Yes: GERD (using walker at home ) Renal/: Yes: Renal Inusuff ...: No Psych: Yes: Depression Musculoskeletal: Yes: Osteoarthritis, Other (DDD) Rheumatology: Yes: Rheumatoid Arthritis Endocrine: Yes: Diabetes Mellitus Additional Medical History: as in HPI, morbidly obese - Past Surgical History Past Surgical History: Yes: Hysterectomy, Joint Replacement, Cholecystectomy - Alcohol/Substance Use Hx Alcohol Use: No History of Substance Use: reports: None - Smoking History Smoking history: Former smoker Have you smoked in the past 12 months: No Aproximately how many cigarettes per day: 0 If you are a former smoker, when did you quit?: many years ago - Social History Usual Living Arrangement: With Significant Other ADL: Independent History of Recent Travel: No Home Medications - Allergies Allergies/Adverse Reactions: Allergies Allergy/AdvReac Type Severity Reaction Status Date / Time Sulfa (Sulfonamide Allergy Severe Hives Verified 02/08/17 05:10 Antibiotics) - Home Medications Home Medications: Ambulatory Orders Amlodipine Besylate [Norvasc -] 2.5 mg PO DAILY 09/03/15 Ergocalciferol (Vitamin D2) [Drisdol] 50,000 units PO WEEKLY 09/03/15 Ferrous Sulfate [Feosol] 325 mg PO DAILY 09/03/15 Interferon Beta-1A [Avonex] 30 mcg IM WEEKLY 09/03/15 Sennosides [Senna] 8.6 mg PO DAILY PRN 09/03/15 Aspirin Coated [Ecotrin -] 81 mg PO DAILY #30 tablet.ec 09/10/15 Docusate Sodium [Colace -] 300 mg PO HS #30 capsule 09/10/15 Furosemide [Lasix -] 20 mg PO DAILY #30 tablet 09/10/15 Losartan Potassium [Cozaar -] 50 mg PO DAILY #30 tablet 09/10/15 Magnesium Oxide 400 mg PO BID #7 tablet 09/10/15 traZODone HCL [Desyrel -] 100 mg PO HS #30 tablet 09/10/15 Allopurinol [Zyloprim -] 100 mg PO DAILY #7 tablet MDD 1 02/13/17 Esomeprazole Magnesium [Nexium 24Hr] 40 mg PO DAILY 05/08/17 Tizanidine HCl 4 mg PO TID PRN #90 tablet 08/02/17 Gabapentin [Neurontin -] 400 mg PO Q8H #90 capsule 10/01/17 Oxycodone HCl/Acetaminophen [Percocet 10-325 mg Tablet] 1 each PO Q8H PRN #90 tablet MDD 3 10/29/17 Family Disease History - Family Disease History Family Disease History: CA: Mother (, cancer), Other: Father ( - does not know why), Brother (pain - arthritis), Sister (four sisters - little contact), Son (one living healthy), Daughter (one living healthy) Physical Exam-Neuro Vital Signs: Vital Signs Temperature 98.6 F 11/05/17 15:30 Pulse Rate 79 11/05/17 15:30 Respiratory Rate 24 11/05/17 15:30 Blood Pressure 125/75 11/05/17 15:30 O2 Sat by Pulse Oximetry (%) 100 11/05/17 09:00 Labs: CBC, BMP 11/05/17 09:03 11/05/17 09:03 INR, PTT INR 1.24 (0.82-1.09) H 11/05/17 09:03 Assessment/Plan cc headhace and generalized body ache HPI 72 year old female history of MS, Stroke in past, ckd, She came with generalized bodyache. She also get headhace lasting for 15 minute and gets better. SHe is very tender all over the body and she is very jumpy. Alysha was seen by psychiastrist, ID, Vascular . So far nothing specific was identified. She is quite vague in her description. She has MS and is on Avonex ( as per patient) . She is seeing Dr Valera as outpatient. Patient is not mobile at home, as per records. Patient also complaining of neck pain and back pain. Her ct head is unremarkable and ct of c leelee showed there is cord compression. She also found to have high wbc, and there is supician of hematological disorder. PMH as above SH,FH, ROS reviewe in chart Allergies Sulfa (Sulfonamide Antibiotics) Allergy (Severe, Verified 02/08/17 05:10) Hives peanuts,peas,tomatoes HOME MEDICATIONS: Home Medications Medication Instructions Recorded Amlodipine Besylate [Norvasc -] 2.5 mg PO DAILY 09/03/15 Ergocalciferol (Vitamin D2) 50,000 units PO WEEKLY 09/03/15 [Drisdol] Ferrous Sulfate [Feosol] 325 mg PO DAILY 09/03/15 Interferon Beta-1A [Avonex] 30 mcg IM WEEKLY 09/03/15 Sennosides [Senna] 8.6 mg PO DAILY PRN 09/03/15 Aspirin Coated [Ecotrin -] 81 mg PO DAILY #30 tablet.ec 09/10/15 Docusate Sodium [Colace -] 300 mg PO HS #30 capsule 09/10/15 Furosemide [Lasix -] 20 mg PO DAILY #30 tablet 09/10/15 Losartan Potassium [Cozaar -] 50 mg PO DAILY #30 tablet 09/10/15 Magnesium Oxide 400 mg PO BID #7 tablet 09/10/15 traZODone HCL [Desyrel -] 100 mg PO HS #30 tablet 09/10/15 Allopurinol [Zyloprim -] 100 mg PO DAILY #7 tablet MDD 1 02/13/17 Esomeprazole Magnesium [Nexium 40 mg PO DAILY 05/08/17 24Hr] Tizanidine HCl 4 mg PO TID PRN #90 tablet 08/02/17 Gabapentin [Neurontin -] 400 mg PO Q8H #90 capsule 10/01/17 Oxycodone HCl/Acetaminophen 1 each PO Q8H PRN #90 tablet MDD 3 10/29/17 [Percocet 10-325 mg Tablet] Neurological Examination vss afebrile Alert and follow command, She is tende all over the body. 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 Low back pain , suggest to do L spine ct head 3. PT, s/w consult and Psych ( consult appreciated) 4. generalize dsupportive care Thanking you so much Damon Beauchamp MD
[2017-11-05] MEDS: DOCUSATE SODIUM 100 MG CAPSULE (FP) PO SCH (23:29)
[2017-11-06] MEDS: PIPERACILLIN/TAZOB 3.375 GM 3.375 GM in DEXTROSE 5%-WATER - 50 ML IVPB SCH ×3 (01:31→17:21)
[2017-11-06] MEDS: oxyCODONE HCL 5 MG TABLET PO PRN ×2 (03:37→13:49)
[2017-11-06] MEDS: GABAPENTIN 400 MG CAPSULE (FP) PO SCH ×3 (06:50→21:40)
[2017-11-06] MEDS: HEPARIN NA (PORCINE) 5,000 UNITS/ML 1ML VIAL SQ SCH ×3 (06:51→21:41)
[2017-11-06 08:28] LABS: BASO % 1.7 % (0-2.0); HEMATOCRIT 30.5 % (32.4-45.2); HEMOGLOBIN 9.4 GM/dL (10.7-15.3); LYMPH % 7.2 % (8-40); MCH 25.7 pg (25.7-33.7); MCHC 30.8 g/dl (32.0-36.0); MEAN CELL VOLUME 83.4 fl (80-96); MEAN PLT VOLUME 8.3 fl (7.5-11.1); MONO % 4.3 % (3.8-10.2); NEUT % 85.8 % (42.8-82.8); RBC 3.66 M/mm3 (3.60-5.2); RDW 16.1 % (11.6-15.6)
[2017-11-06 08:38] LABS: PLATELET COUNT 1483 K/MM3 (134-434)
[2017-11-06 08:40] LABS: WHITE BLOOD COUNT 59.9 K/mm3 (4.0-10.0)
[2017-11-06 08:52] LABS: CHLORIDE 107 mmol/L (98-107); POTASSIUM 3.8 mmol/L (3.5-5.1); SODIUM 142 mmol/L (136-145)
[2017-11-06] MEDS: HYDROmorphone HCL 2 MG TABLET PO PRN ×2 (08:53→16:26)
--- NOTE | 2017-11-06 08:56 | PN ---
Progress Note, Physician - Current Medication List Current Medications: Active Medications Acetaminophen (Tylenol -) 325 mg PO Q8H PRN PRN Reason: PAIN LEVEL 6-10 Last Admin: 11/05/17 05:13 Dose: 325 mg Amlodipine Besylate (Norvasc -) 2.5 mg PO DAILY [facility] Last Admin: 11/05/17 10:24 Dose: 2.5 mg Aspirin (Ecotrin -) 81 mg PO DAILY [facility] Last Admin: 11/05/17 10:23 Dose: 81 mg Docusate Sodium (Colace -) 300 mg PO HS [facility] Last Admin: 11/05/17 23:29 Dose: 300 mg Ferrous Sulfate (Feosol -) 325 mg PO DAILY [facility] Last Admin: 11/05/17 10:24 Dose: 325 mg Furosemide (Lasix -) 20 mg PO DAILY [facility] Last Admin: 11/05/17 10:24 Dose: 20 mg Gabapentin (Neurontin -) 400 mg PO TID [facility] Last Admin: 11/06/17 06:50 Dose: 400 mg Heparin Sodium (Porcine) (Heparin -) 5,000 unit SQ TID [facility] Last Admin: 11/06/17 06:51 Dose: 5,000 unit Hydromorphone HCl (Dilaudid -) 2 mg PO Q4HWA PRN PRN Reason: PAIN LEVEL 4 - 6 Last Admin: 11/06/17 08:53 Dose: 2 mg Piperacillin Sod/Tazobactam (Sod 3.375 gm/ Dextrose) 50 mls @ 100 mls/hr IVPB Q8H-IV [facility]; Protocol Last Admin: 11/06/17 01:31 Dose: 100 mls/hr Losartan Potassium (Cozaar -) 50 mg PO DAILY [facility] Last Admin: 11/05/17 10:23 Dose: 50 mg Oxycodone HCl (Roxicodone -) 10 mg PO Q8H PRN PRN Reason: PAIN LEVEL 6-10 Last Admin: 11/06/17 03:37 Dose: 10 mg Pantoprazole Sodium (Protonix -) 40 mg PO DAILY [facility] Last Admin: 11/05/17 10:24 Dose: 40 mg Senna (Senna -) 1 tab PO DAILY PRN PRN Reason: CONSTIPATION Last Admin: 11/05/17 23:36 Dose: 1 tab - Objective Vital Signs: Vital Signs Temperature 98.4 F 11/06/17 07:40 Pulse Rate 90 11/06/17 07:40 Respiratory Rate 20 11/06/17 07:40 Blood Pressure 155/98 11/06/17 07:40 O2 Sat by Pulse Oximetry (%) 94 L 11/05/17 21:00 Cardiovascular: Yes: S1, S2 Respiratory: Yes: Regular, CTA Bilaterally Gastrointestinal: Yes: Normal Bowel Sounds, Soft Musculoskeletal: Yes: Back Pain, Joint Stiffness, Muscle Weakness Labs: CBC, BMP 11/06/17 06:43 INR, PTT INR 1.24 (0.82-1.09) H 11/05/17 09:03 Problem List - Problems (1) UTI (urinary tract infection) Assessment/Plan: - Urine Culture-pending - Given Vancomycin for ?sepsis - Will treat with Levaquin - Monitor vitals - dc mayer - id consult Code(s): N39.0 - URINARY TRACT INFECTION, SITE NOT SPECIFIED Qualifiers: Urinary tract infection type: acute cystitis Hematuria presence: without hematuria Qualified Code(s): N30.00 - Acute cystitis without hematuria (2) Leukocytosis Assessment/Plan: - Likely secondary hematological etiology r/o Malignancy - Repeat CBC - Appreciate Hematology Consult--await follow up - Continue ABX? - Monitor vitals Code(s): D72.829 - ELEVATED WHITE BLOOD CELL COUNT, UNSPECIFIED Qualifiers: Leukocytosis type: unspecified Qualified Code(s): D72.829 - Elevated white blood cell count, unspecified (3) Anxiety and depression Assessment/Plan: - Continue home meds - FU with psych outpatient Code(s): F41.9 - ANXIETY DISORDER, UNSPECIFIED; F32.9 - MAJOR DEPRESSIVE DISORDER, SINGLE EPISODE, UNSPECIFIED (4) Diabetes Assessment/Plan: -bgm -endo Code(s): E11.9 - TYPE 2 DIABETES MELLITUS WITHOUT COMPLICATIONS Qualifiers: Diabetes mellitus type: type 2 (5) Chronic pain of multiple joints Assessment/Plan: (9) Cervical stenosis of spine/Degenerative disc disease - Continue home meds - FU with pain management outpatient -add dilaudid Code(s): M25.50 - PAIN IN UNSPECIFIED JOINT; G89.29 - OTHER CHRONIC PAIN (6) Multiple sclerosis Assessment/Plan: -home meds Code(s): G35 - MULTIPLE SCLEROSIS (7) Weakness Assessment/Plan: - Likely secondary to MS Flare vs Chronic Pain - Monitor CBC, BMP - Gentle IVF - Monitor vitals - Appreciate PT consult for conditioning Code(s): R53.1 - WEAKNESS (8) Spinal stenosis Assessment/Plan: -NS consult noted -await medical work up Code(s): M48.00 - SPINAL STENOSIS, SITE UNSPECIFIED
[2017-11-06 09:08] LABS: ALBUMIN 3.3 g/dl (3.4-5.0); ALK PHOS 129 U/L (45-117); ANION GAP 10 (8-16); BILIRUBIN,TOTAL 0.4 mg/dL (0.2-1.0); BLOOD UREA NITROGEN 8 mg/dL (7-18); CO2 25 mmol/L (21-32); GLUCOSE,RANDOM 86 mg/dL (74-106); LDH 450 U/L (84-246); SGOT/AST 28 U/L (15-37); SGPT/ALT 15 U/L (12-78); TOT PROT 6.6 g/dl (6.4-8.2); URIC ACID 5.3 mg/dL (2.6-7.2)
[2017-11-06] MEDS ORDERED: PIPERACILLIN/TAZOBACTAM 3.375 GM VIAL IVPB ONE ×2 (10:02→17:09)
[2017-11-06] MEDS ORDERED: DEXTROSE 5%-WATER - 50 ML IVPB ONE ×2 (10:03→17:09)
[2017-11-06] MEDS: PANTOPRAZOLE 40 MG TABLET (FP) PO SCH (10:05)
[2017-11-06] MEDS: FUROSEMIDE 20 MG TABLET (FP) PO SCH (10:05)
[2017-11-06] MEDS: ASPIRIN COATED 81 MG TABLET.EC PO SCH (10:05)
[2017-11-06] MEDS: LOSARTAN POTASSIUM 50 MG TABLET (FP) PO SCH (10:05)
[2017-11-06] MEDS: amLODIPine BESYLATE 2.5 MG TABLET (FP) PO SCH (10:05)
[2017-11-06] MEDS: FERROUS SO4 325 MG TABLET (FP) PO SCH (10:05)
[2017-11-06] MEDS ORDERED: PT OWN MED DRAWER 7, Y5N ONE (11:16)
--- NOTE | 2017-11-06 12:50 | CONSULT ---
Consult - text type - Consultation Consultation Note: NEUROSURGERY CONSULTATION Asya Rubin is a 72 year old female with a history of 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 and other medical problems who has been using a wheelchair for all but short trips out of bed and describes a recent history of increased pain and weakness throughout her body. She describes difficulties in using her hands due to numbness and tingling as well as a progressive loss of fine motor skills. She has been dropping things and has increased tone in all of her extremities. The patient relates that her diagnosis of MS was not clear or easily made when it was made 9-10 years ago. The patient was recently admitted for evaluation of this progression and CT Cervical revealed severe Cervical spondylosis with spinal canal stenosis. MRI Cervical demonstrates a congenitally narrow spinal canal with osteophytes, disc protrusions, and hypertrophic posterior longitudinal ligament and ligamentum flavum which severely narrow the AP canal diameter to less than 5mm at some levels. The patient has severe deformation of the ventral and dorsal contours of the Cervical spinal cord and complete effacement of the CSF spaces. The Lordosis is relatively preserved and there is some mild upper Thoracic spondylosis. 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 The patient has Thrombocytosis and a severely elevated WBC (>50, 000) and may not be medically fit for surgery at this time. I described the risks, benefits and alternatives to C2-C7 decompression and fusion to the patient in great detail. I explained that the risks included, but were not limited to: , coma, paralysis, bleeding, infection, CSF leakage possibly requiring spinal drainage or additional surgery, failure to fuse, instrumentation migration/malposition/malfunction and the need for additional surgery. I offered her the option of seeking another opinion or another surgeon. All questions were answered. Informed consent was obtained. I discussed her case with Drs. Beauchamp and Bernarda and the patient asks that I speak with Dr. De Leon as well. We will obtain Hematology evaluation prior to considering proceeding with surgery. This is a challenging clinical situation, however, the patient might benefit from decompression/fusion if medical risks can be mitigated.
--- NOTE | 2017-11-06 12:55 | PN ---
Progress Note (short form) - Note Progress Note: patient seen and examined. much better than yesterday says her appetite is not good. Constitutional: Yes: Moderate Distress HENT: Yes: Atraumatic, Normocephalic Neck: Yes: Supple Cardiovascular: Yes: Regular Rate and Rhythm Respiratory: Yes: Regular Gastrointestinal: Yes: Soft, Abdomen, Obese, Tenderness Edema: Yes Neurological: Yes: Confusion Temp Pulse Resp BP Pulse Ox 99.0 F 84 20 153/73 94 L 11/06/17 09:52 11/06/17 09:52 11/06/17 09:52 11/06/17 09:52 11/06/17 09:00 CBC, BMP 11/06/17 06:43 11/06/17 06:43 Current Medications Generic Name Dose Route Start Last Admin Trade Name Freq PRN Reason Stop Dose Admin Acetaminophen 325 mg 11/05/17 01:19 11/05/17 05:13 Tylenol - PO 325 mg Q8H PRN Administration PAIN LEVEL 6-10 Amlodipine Besylate 2.5 mg 11/05/17 10:00 11/06/17 10:05 Norvasc - PO 2.5 mg DAILY [facility] Administration Aspirin 81 mg 11/05/17 10:00 11/06/17 10:05 Ecotrin - PO 81 mg DAILY [facility] Administration Docusate Sodium 300 mg 11/05/17 22:00 11/05/17 23:29 Colace - PO 300 mg HS [facility] Administration Ferrous Sulfate 325 mg 11/05/17 10:00 11/06/17 10:05 Feosol - PO 325 mg DAILY [facility] Administration Furosemide 20 mg 11/05/17 10:00 11/06/17 10:05 Lasix - PO 20 mg DAILY [facility] Administration Gabapentin 400 mg 11/05/17 06:00 11/06/17 06:50 Neurontin - PO 400 mg TID [facility] Administration Heparin Sodium (Porcine) 5,000 unit 11/05/17 06:00 11/06/17 06:51 Heparin - SQ 5,000 unit TID [facility] Administration Hydromorphone HCl 2 mg 11/05/17 09:04 11/06/17 08:53 Dilaudid - PO 2 mg Q4HWA PRN Administration PAIN LEVEL 4 - 6 Piperacillin Sod/Tazobactam 50 mls @ 100 mls/hr 11/05/17 11:15 11/06/17 10:05 Sod 3.375 gm/ Dextrose IVPB 100 mls/hr Q8H-IV [facility] Administration Protocol Losartan Potassium 50 mg 11/05/17 10:00 11/06/17 10:05 Cozaar - PO 50 mg DAILY [facility] Administration Oxycodone HCl 10 mg 11/05/17 01:18 11/06/17 03:37 Roxicodone - PO 10 mg Q8H PRN Administration PAIN LEVEL 6-10 Pantoprazole Sodium 40 mg 11/05/17 10:00 11/06/17 10:05 Protonix - PO 40 mg DAILY [facility] Administration Senna 1 tab 11/05/17 01:06 11/05/17 23:36 Senna - PO 1 tab DAILY PRN Administration CONSTIPATION Leucocytosis/anemia/Thrombocytosis Suspicious for MPD, but no splenomegaly await w/u--all are send out tests. LDH is >400 IVF Elevated RF will obtain rheumatological consultation to help in aiding the etiology of these generalized body pains. ?concern for reactive causes d/w ID, no Pt has h/o chronic pain syndrome Obtain Pain mgmt, N. Was different today than yesterday ?opiate withdrawal yesterday Neurological issues: Has CT evidence of cord compression ?neurologic etiology Neuro and NSG recommendations reviewed. if this is MPD, platelet count >1mil, risk for Bleeding manifestations ,as well as thrombosis may be high. will need to await VW w/u Problem List - Problems (1) Leukocytosis Code(s): D72.829 - ELEVATED WHITE BLOOD CELL COUNT, UNSPECIFIED Qualifiers: Leukocytosis type: unspecified Qualified Code(s): D72.829 - Elevated white blood cell count, unspecified (2) Thrombocytosis Code(s): D47.3 - ESSENTIAL (HEMORRHAGIC) THROMBOCYTHEMIA (3) Chronic pain of multiple joints Code(s): M25.50 - PAIN IN UNSPECIFIED JOINT; G89.29 - OTHER CHRONIC PAIN
--- NOTE | 2017-11-06 13:27 | PN ---
Progress Note (short form) - Note Progress Note: much improved less pain still with nausea loose bm this am no diarrhea at home Vital Signs Period Temp Pulse Resp BP Sys/Teague Pulse Ox Last 24 Hr 98.3 F-99.0 F 76-90 20-24 125-188/66-98 94-100 cor-rrr lungs clear abd soft,nt ext decreased edema CBC, BMP 11/06/17 06:43 11/06/17 06:43 Microbiology 11/04/17 21:05 Urine - Urine - Catheterized Urine Culture - Final NO GROWTH OBTAINED 11/04/17 20:00 Blood - Peripheral Venous Blood Culture - Preliminary NO GROWTH OBTAINED AFTER 24 HOURS, INCUBATION TO CONTINUE FOR 4 DAYS. 11/04/17 20:00 Blood - Peripheral Venous Blood Culture - Preliminary NO GROWTH OBTAINED AFTER 24 HOURS, INCUBATION TO CONTINUE FOR 4 DAYS. imaging reviewed in the computer imp/reccd leukocytosis/thrombocytosis diffuse myalgias uti-but doubt this explains what is going on cultures rectal temp-normal continue zosyn for uti stool cdiff- reports loose stools today heme eval ongoing chronic pain Problem List - Problems (1) Leukocytosis Code(s): D72.829 - ELEVATED WHITE BLOOD CELL COUNT, UNSPECIFIED Qualifiers: Leukocytosis type: unspecified Qualified Code(s): D72.829 - Elevated white blood cell count, unspecified (2) Thrombocytosis Code(s): D47.3 - ESSENTIAL (HEMORRHAGIC) THROMBOCYTHEMIA (3) UTI (urinary tract infection) Code(s): N39.0 - URINARY TRACT INFECTION, SITE NOT SPECIFIED Qualifiers: Urinary tract infection type: acute cystitis Hematuria presence: without hematuria Qualified Code(s): N30.00 - Acute cystitis without hematuria (4) Chronic pain of multiple joints Code(s): M25.50 - PAIN IN UNSPECIFIED JOINT; G89.29 - OTHER CHRONIC PAIN
--- NOTE | 2017-11-06 13:56 | PN ---
Progress Note (short form) - Note Progress Note: HPI 72 year old female history of MS, Stroke in past, ckd, She came with generalized bodyache. She also get headhace lasting for 15 minute and gets better. SHe is very tender all over the body and she is very jumpy. Alysha was seen by psychiastrist, ID, Vascular . So far nothing specific was identified. She is quite vague in her description. She has MS and is on Avonex ( as per patient) . She is seeing Dr Valera as outpatient. Patient is not mobile at home, as per records. She is feeling slightly better today. Patient continue to have neck pain and headhace. She also have weakness in left lower extremity. She is not able to ambu.ate Neurological vss afebrile Alert and follow command, She is tende all over the body. 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 Possible surgical intervention . 2. Low back pain , Spinal L spine report reviewed, severe djd 3. MS stable continue current level of care Thanking you so much Damon Beauchamp MD
[2017-11-06] MEDS ORDERED: ONDANSETRON 4 MG/2 ML VIAL IVPUSH PRN (15:46)
[2017-11-06] MEDS ORDERED: diphenhydrAMINE HCL 25 MG CAPSULE (FP) PO PRN (15:46)
--- NOTE | 2017-11-06 17:20 | PN ---
Holistic Progress Note Subjective: I'm in pain, I'm scared, I don't know what is wrong Objective: 72 year old woman well known to me from treatment for pain as outpatient. Patient reports left upper quadrant pain (new) as well as chronic and ongoing neck, back, knee, foot and back pain. She has underlying anxiety that is also chronic. Unclear etiology of LUQ pain - work up is ongoing. Lower extremity swelling is also chronic and largely unchanged from outpatient visits. Patient reports not being able to eat much, feels nauseous. Please note that patient has been treated for transfusion related hepatitis C in 2016 and thus rheum factor is + - she was evaluated previously by Dr Pabon and found not to have rheumatoid arthritis Assessment: opiate dependent chronic pain with new RUQ pain and nausea Plan: for LUQ pain would check amylase, lipase - consider pancreatitis; consider abdominal ultrasound, GI consult would give percocet 10/325 qid standing - this might provide baseline pain management - hold if drowsy - she thinks the perocet is more helpful than the dilaudid - Medications Home Medications: Home Medications Medication Instructions Recorded Amlodipine Besylate [Norvasc -] 2.5 mg PO DAILY 09/03/15 Ergocalciferol (Vitamin D2) 50,000 units PO WEEKLY 09/03/15 [Drisdol] Ferrous Sulfate [Feosol] 325 mg PO DAILY 09/03/15 Interferon Beta-1A [Avonex] 30 mcg IM WEEKLY 09/03/15 Sennosides [Senna] 8.6 mg PO DAILY PRN 09/03/15 Aspirin Coated [Ecotrin -] 81 mg PO DAILY #30 tablet.ec 09/10/15 Docusate Sodium [Colace -] 300 mg PO HS #30 capsule 09/10/15 Furosemide [Lasix -] 20 mg PO DAILY #30 tablet 09/10/15 Losartan Potassium [Cozaar -] 50 mg PO DAILY #30 tablet 09/10/15 Magnesium Oxide 400 mg PO BID #7 tablet 09/10/15 traZODone HCL [Desyrel -] 100 mg PO HS #30 tablet 09/10/15 Allopurinol [Zyloprim -] 100 mg PO DAILY #7 tablet MDD 1 02/13/17 Esomeprazole Magnesium [Nexium 40 mg PO DAILY 05/08/17 24Hr] Tizanidine HCl 4 mg PO TID PRN #90 tablet 08/02/17 Gabapentin [Neurontin -] 400 mg PO Q8H #90 capsule 10/01/17 Oxycodone HCl/Acetaminophen 1 each PO Q8H PRN #90 tablet MDD 3 10/29/17 [Percocet 10-325 mg Tablet] Diphenhydramine HCl [Benadryl 25 mg PO BID PRN 11/06/17 Capsule -] clonazePAM [Klonopin -] 0.5 mg PO BID 11/06/17 - Findings (1) Spinal stenosis Current Visit: Yes Status: Acute (2) Leukocytosis Current Visit: Yes Status: Chronic (3) Chronic pain of multiple joints Current Visit: Yes Status: Chronic Comment: consider standing ercocet for pain - (tried duragesic patch in past, tried ms contin - did not work and caused itching and drowsiness); gabapentin (4) Chronic renal insufficiency, stage III (moderate) Current Visit: Yes Status: Chronic Comment: avoid NSAIDs, give fluids, blood sugar and blood pressure are controlled (5) Chronic use of opiate for therapeutic purpose Current Visit: Yes Status: Chronic Comment: patient has a history of opiate dependence to treat chronic pain for about ten years - generally stable doses and no aberrant behavior (6) Degenerative disc disease Current Visit: Yes Status: Chronic Comment: has previously seen dr jackson for injection in her back which helped moderately (7) Diabetes mellitus with renal manifestations, controlled Current Visit: Yes Status: Chronic Comment: fluids, avoid NSAIDS (8) Left upper quadrant pain Current Visit: Yes Status: Acute Comment: abdominal ultrasound, GI consult, check amylase, lipase
[2017-11-06] MEDS ORDERED: MAG HYDROX/AL HYDROX/SIMETH 30 ML UNIT-DOSE CUP PO ONE (17:45)
[2017-11-06] MEDS: DOCUSATE SODIUM 100 MG CAPSULE (FP) PO SCH (21:40)
[2017-11-06] MEDS: clonazePAM 0.5 MG TABLET PO SCH (21:41)
--- NOTE | 2017-11-07 00:48 | CONSULT ---
Consult Consult Specialty:: endocrine Referred by:: dr.annabi brizuela Reason for Consultation:: diabetes mellitus - History of Present Illness Chief Complaint: back pain History of Present Illness: 72-year-old female with past medical history of MS, OA, CVA, CKD. Who presents to the ED for leukocytosis of white count of 40. The patient reports 2 days of fatigue and generalized weakness and total body aches. Denies fevers or chills. Does report some mild discomfort with urination. 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 Cardio/Vascular: Yes: HTN Pulmonary: Yes: Asthma, COPD Gastrointestinal: Yes: GERD (using walker at home ) Renal/: Yes: Renal Inusuff ...: No Psych: Yes: Depression Musculoskeletal: Yes: Osteoarthritis, Other (DDD) Rheumatology: Yes: Rheumatoid Arthritis Endocrine: Yes: Diabetes Mellitus Additional Medical History: as in HPI, morbidly obese - Past Surgical History Past Surgical History: Yes: Hysterectomy, Joint Replacement, Cholecystectomy - Alcohol/Substance Use Hx Alcohol Use: No History of Substance Use: reports: None - Smoking History Smoking history: Former smoker Have you smoked in the past 12 months: No Aproximately how many cigarettes per day: 0 If you are a former smoker, when did you quit?: many years ago - Social History Usual Living Arrangement: With Significant Other ADL: Independent History of Recent Travel: No Home Medications - Allergies Allergies/Adverse Reactions: Allergies Allergy/AdvReac Type Severity Reaction Status Date / Time Sulfa (Sulfonamide Allergy Severe Hives Verified 02/08/17 05:10 Antibiotics) - Home Medications Home Medications: Ambulatory Orders Amlodipine Besylate [Norvasc -] 2.5 mg PO DAILY 09/03/15 Ergocalciferol (Vitamin D2) [Drisdol] 50,000 units PO WEEKLY 09/03/15 Ferrous Sulfate [Feosol] 325 mg PO DAILY 09/03/15 Interferon Beta-1A [Avonex] 30 mcg IM WEEKLY 09/03/15 Sennosides [Senna] 8.6 mg PO DAILY PRN 09/03/15 Aspirin Coated [Ecotrin -] 81 mg PO DAILY #30 tablet.ec 09/10/15 Docusate Sodium [Colace -] 300 mg PO HS #30 capsule 09/10/15 Furosemide [Lasix -] 20 mg PO DAILY #30 tablet 09/10/15 Losartan Potassium [Cozaar -] 50 mg PO DAILY #30 tablet 09/10/15 Magnesium Oxide 400 mg PO BID #7 tablet 09/10/15 traZODone HCL [Desyrel -] 100 mg PO HS #30 tablet 09/10/15 Allopurinol [Zyloprim -] 100 mg PO DAILY #7 tablet MDD 1 02/13/17 Esomeprazole Magnesium [Nexium 24Hr] 40 mg PO DAILY 05/08/17 Tizanidine HCl 4 mg PO TID PRN #90 tablet 08/02/17 Gabapentin [Neurontin -] 400 mg PO Q8H #90 capsule 10/01/17 Oxycodone HCl/Acetaminophen [Percocet 10-325 mg Tablet] 1 each PO Q8H PRN #90 tablet MDD 3 10/29/17 Diphenhydramine HCl [Benadryl Capsule -] 25 mg PO BID PRN 11/06/17 clonazePAM [Klonopin -] 0.5 mg PO BID 11/06/17 Family Disease History - Family Disease History Family Disease History: CA: Mother (, cancer), Other: Father ( - does not know why), Brother (pain - arthritis), Sister (four sisters - little contact), Son (one living healthy), Daughter (one living healthy) Review of Systems - Review of Systems Constitutional: reports: Lethargy, Unintentional Wgt. Loss, Weakness Eyes: reports: No Symptoms HENT: reports: No Symptoms Neck: reports: Tenderness Cardiovascular: reports: Shortness of Breath Respiratory: reports: Exercise Intolerance, SOB on Exertion Gastrointestinal: reports: Bloating, Nausea Genitourinary: reports: Frequency Breasts: reports: No Symptoms Reported Musculoskeletal: reports: Joint Pain, Muscle Pain, Muscle Cramps Integumentary: reports: No Symptoms Neurological: reports: Unsteady Gait, Weakness Endocrine: reports: Unexplained Weight Loss Psychiatric: reports: Anxiety Physical Exam Vital Signs: Vital Signs Temperature 98.5 F 11/06/17 19:09 Pulse Rate 83 11/06/17 19:09 Respiratory Rate 20 11/06/17 19:09 Blood Pressure 158/69 11/06/17 19:09 O2 Sat by Pulse Oximetry (%) 94 L 11/06/17 09:00 Constitutional: Yes: Anxious Eyes: Yes: EOM Intact HENT: Yes: Normocephalic Neck: Yes: Trachea Midline Cardiovascular: Yes: Regular Rate and Rhythm Respiratory: Yes: CTA Bilaterally Gastrointestinal: Yes: Normal Bowel Sounds ...Rectal Exam: Yes: Deferred Renal/: Yes: WNL Breast(s): Yes: WNL Musculoskeletal: Yes: Muscle Pain, Muscle Weakness Extremities: Yes: WNL Edema: LLE: Trace, RLE: Trace Neurological: Yes: Alert, Oriented Labs: CBC, BMP 11/06/17 06:43 11/06/17 06:43 Problem List - Problems (1) Hypothyroid Code(s): E03.9 - HYPOTHYROIDISM, UNSPECIFIED (2) Spinal stenosis Code(s): M48.00 - SPINAL STENOSIS, SITE UNSPECIFIED (3) Weakness Code(s): R53.1 - WEAKNESS (4) Chronic pain of multiple joints Code(s): M25.50 - PAIN IN UNSPECIFIED JOINT; G89.29 - OTHER CHRONIC PAIN (5) Chronic use of opiate for therapeutic purpose 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 Assessment/Plan Current Active Problems Left upper quadrant pain (Acute) Spinal stenosis (Acute) Thrombocytosis (Acute) UTI (urinary tract infection) (Acute) Weakness (Acute) Chronic pain of multiple joints (Chronic) Chronic renal insufficiency, stage III (moderate) (Chronic) Chronic use of opiate for therapeutic purpose (Chronic) Degenerative disc disease (Chronic) Diabetes mellitus with renal manifestations, controlled (Chronic) Leukocytosis (Chronic) Abnormal Lab Results 11/06/17 11/06/17 11/06/17 06:43 06:43 06:43 WBC 59.9 H* Hgb 9.4 L Hct 30.5 L MCHC 30.8 L RDW 16.1 H Plt Count 1483 H Neutrophils % 85.8 H D Lymphocytes % 7.2 L D Retic Count Alkaline Phosphatase 129 H LD Total 450 H C-Reactive Protein 0.5 H Albumin 3.3 L Rheumatoid Factor 17.0 H 11/06/17 06:43 WBC Hgb Hct MCHC RDW Plt Count Neutrophils % Lymphocytes % Retic Count 1.55 H Alkaline Phosphatase LD Total C-Reactive Protein Albumin Rheumatoid Factor Laboratory Results - last 24 hr 11/06/17 11/06/17 11/06/17 06:43 06:43 06:43 WBC 59.9 H* RBC 3.66 Hgb 9.4 L Hct 30.5 L MCV 83.4 MCH 25.7 MCHC 30.8 L RDW 16.1 H Plt Count 1483 H MPV 8.3 Neutrophils % 85.8 H D Lymphocytes % 7.2 L D Monocytes % 4.3 Eosinophils % 1.0 Basophils % 1.7 Nucleated RBC % 0 ESR Retic Count Sodium 142 Potassium 3.8 Chloride 107 Carbon Dioxide 25 Anion Gap 10 BUN 8 Creatinine 1.0 Creat Clearance w eGFR 54.50 Random Glucose 86 Uric Acid 5.3 D Calcium 9.0 Ferritin Total Bilirubin 0.4 D AST 28 ALT 15 Alkaline Phosphatase 129 H LD Total 450 H C-Reactive Protein 0.5 H Total Protein 6.6 Albumin 3.3 L Rheumatoid Factor 17.0 H 11/06/17 11/06/17 11/06/17 06:43 06:43 06:43 WBC RBC Hgb Hct MCV MCH MCHC RDW Plt Count MPV Neutrophils % Lymphocytes % Monocytes % Eosinophils % Basophils % Nucleated RBC % ESR 28 Retic Count 1.55 H Sodium Potassium Chloride Carbon Dioxide Anion Gap BUN Creatinine Creat Clearance w eGFR Random Glucose Uric Acid Calcium Ferritin 103.088 Total Bilirubin AST ALT Alkaline Phosphatase LD Total C-Reactive Protein Total Protein Albumin Rheumatoid Factor Laboratory Tests 09/07/17 11/02/17 11:00 11:00 TSH 3.76 H 2.23 oren thyroiditis sp thyroid resection plan: ck hba1c nutrition consult diet bgm bid heme/onc workup pending ns opinion noted
[2017-11-07] MEDS ORDERED: PIPERACILLIN/TAZOBACTAM 3.375 GM VIAL IVPB ONE ×2 (03:26→09:31)
[2017-11-07] MEDS ORDERED: DEXTROSE 5%-WATER - 50 ML IVPB ONE ×2 (03:27→09:32)
[2017-11-07] MEDS: PIPERACILLIN/TAZOB 3.375 GM 3.375 GM in DEXTROSE 5%-WATER - 50 ML IVPB SCH ×2 (03:37→09:36)
[2017-11-07] MEDS: GABAPENTIN 400 MG CAPSULE (FP) PO SCH ×3 (05:36→22:50)
[2017-11-07] MEDS: HEPARIN NA (PORCINE) 5,000 UNITS/ML 1ML VIAL SQ SCH ×3 (05:36→22:55)
[2017-11-07] MEDS: ACETAMINOPHEN 325 MG TABLET (FP) PO PRN (05:37)
[2017-11-07] MEDS: oxyCODONE HCL 5 MG TABLET PO PRN ×2 (05:37→16:12)
[2017-11-07 07:31] LABS: BASO % 1.5 % (0-2.0); EOS % 0.8 % (0-4.5); HEMATOCRIT 30.7 % (32.4-45.2); HEMOGLOBIN 9.4 GM/dL (10.7-15.3); LYMPH % 7.5 % (8-40); MCH 25.5 pg (25.7-33.7); MCHC 30.6 g/dl (32.0-36.0); MEAN CELL VOLUME 83.4 fl (80-96); MEAN PLT VOLUME 8.4 fl (7.5-11.1); MONO % 4.3 % (3.8-10.2); NEUT % 85.9 % (42.8-82.8); RBC 3.68 M/mm3 (3.60-5.2); RDW 16.5 % (11.6-15.6)
[2017-11-07 07:58] LABS: CHLORIDE 104 mmol/L (98-107); POTASSIUM 3.9 mmol/L (3.5-5.1); SODIUM 141 mmol/L (136-145)
[2017-11-07 07:59] LABS: PLATELET COUNT 1535 K/MM3 (134-434)
[2017-11-07 08:05] LABS: WHITE BLOOD COUNT 64.7 K/mm3 (4.0-10.0)
[2017-11-07 08:07] LABS: SERUM IRON SATURATION 18 % (15-55); TOTAL IRON BINDING CAPACITY 247 ug/dL (250-450); UIBC 202 ug/dL (118-369)
[2017-11-07 08:15] LABS: ALBUMIN 3.2 g/dl (3.4-5.0); ALK PHOS 116 U/L (45-117); ANION GAP 10 (8-16); BILIRUBIN,TOTAL 0.4 mg/dL (0.2-1.0); BLOOD UREA NITROGEN 9 mg/dL (7-18); CALCIUM 9.4 mg/dL (8.5-10.1); CO2 27 mmol/L (21-32); CREATININE 1.1 mg/dL (0.55-1.02); GLUCOSE,RANDOM 93 mg/dL (74-106); SGOT/AST 23 U/L (15-37); SGPT/ALT 12 U/L (12-78); TOT PROT 6.5 g/dl (6.4-8.2)
--- NOTE | 2017-11-07 08:51 | PN ---
Progress Note, Physician - Current Medication List Current Medications: Active Medications Acetaminophen (Tylenol -) 325 mg PO Q8H PRN PRN Reason: PAIN LEVEL 6-10 Last Admin: 11/07/17 05:37 Dose: 325 mg Amlodipine Besylate (Norvasc -) 2.5 mg PO DAILY [facility] Last Admin: 11/06/17 10:05 Dose: 2.5 mg Aspirin (Ecotrin -) 81 mg PO DAILY [facility] Last Admin: 11/06/17 10:05 Dose: 81 mg Clonazepam (Klonopin -) 0.5 mg PO BID [facility] Last Admin: 11/06/17 21:41 Dose: 0.5 mg Diphenhydramine HCl (Benadryl -) 25 mg PO BID PRN PRN Reason: itch Last Admin: 11/06/17 21:40 Dose: 25 mg Docusate Sodium (Colace -) 300 mg PO HS [facility] Last Admin: 11/06/17 21:40 Dose: 300 mg Ferrous Sulfate (Feosol -) 325 mg PO DAILY [facility] Last Admin: 11/06/17 10:05 Dose: 325 mg Furosemide (Lasix -) 20 mg PO DAILY [facility] Last Admin: 11/06/17 10:05 Dose: 20 mg Gabapentin (Neurontin -) 400 mg PO TID [facility] Last Admin: 11/07/17 05:36 Dose: 400 mg Heparin Sodium (Porcine) (Heparin -) 5,000 unit SQ TID [facility] Last Admin: 11/07/17 05:36 Dose: 5,000 unit Hydromorphone HCl (Dilaudid -) 2 mg PO Q4HWA PRN PRN Reason: PAIN LEVEL 4 - 6 Last Admin: 11/06/17 16:26 Dose: 2 mg Piperacillin Sod/Tazobactam (Sod 3.375 gm/ Dextrose) 50 mls @ 100 mls/hr IVPB Q8H-IV [facility]; Protocol Last Admin: 11/07/17 03:37 Dose: 100 mls/hr Losartan Potassium (Cozaar -) 50 mg PO DAILY [facility] Last Admin: 11/06/17 10:05 Dose: 50 mg Ondansetron HCl (Zofran Injection) 4 mg IVPUSH Q8H PRN PRN Reason: NAUSEA Last Admin: 11/06/17 21:41 Dose: 4 mg Oxycodone HCl (Roxicodone -) 10 mg PO Q8H PRN PRN Reason: PAIN LEVEL 6-10 Last Admin: 11/07/17 05:37 Dose: 10 mg Pantoprazole Sodium (Protonix -) 40 mg PO DAILY [facility] Last Admin: 11/06/17 10:05 Dose: 40 mg Senna (Senna -) 1 tab PO DAILY PRN PRN Reason: CONSTIPATION Last Admin: 11/05/17 23:36 Dose: 1 tab - Objective Vital Signs: Vital Signs Temperature 99.9 F H 11/07/17 07:10 Pulse Rate 87 11/07/17 07:10 Respiratory Rate 20 11/07/17 07:10 Blood Pressure 142/86 11/07/17 07:10 O2 Sat by Pulse Oximetry (%) 95 11/06/17 21:00 Cardiovascular: Yes: S1, S2 Respiratory: Yes: Regular, CTA Bilaterally Gastrointestinal: Yes: Normal Bowel Sounds, Soft Labs: CBC, BMP 11/07/17 06:00 11/07/17 06:00 INR, PTT INR 1.24 (0.82-1.09) H 11/05/17 09:03 Problem List - Problems (1) UTI (urinary tract infection) Assessment/Plan: - Urine Culture-pending - Given Vancomycin for ?sepsis - Will treat with Levaquin - Monitor vitals - dc mayer - id consult Code(s): N39.0 - URINARY TRACT INFECTION, SITE NOT SPECIFIED Qualifiers: Urinary tract infection type: acute cystitis Hematuria presence: without hematuria Qualified Code(s): N30.00 - Acute cystitis without hematuria (2) Leukocytosis Assessment/Plan: - Likely secondary hematological etiology r/o Malignancy - Repeat CBC - Appreciate Hematology Consult--await follow up - Continue ABX? - Monitor vitals Code(s): D72.829 - ELEVATED WHITE BLOOD CELL COUNT, UNSPECIFIED Qualifiers: Leukocytosis type: unspecified Qualified Code(s): D72.829 - Elevated white blood cell count, unspecified (3) Anxiety and depression Assessment/Plan: - Continue home meds - FU with psych outpatient Code(s): F41.9 - ANXIETY DISORDER, UNSPECIFIED; F32.9 - MAJOR DEPRESSIVE DISORDER, SINGLE EPISODE, UNSPECIFIED (4) Diabetes Assessment/Plan: -bgm -endo Code(s): E11.9 - TYPE 2 DIABETES MELLITUS WITHOUT COMPLICATIONS Qualifiers: Diabetes mellitus type: type 2 (5) Chronic pain of multiple joints Assessment/Plan: (9) Cervical stenosis of spine/Degenerative disc disease - Continue home meds - FU with pain management outpatient -add dilaudid Code(s): M25.50 - PAIN IN UNSPECIFIED JOINT; G89.29 - OTHER CHRONIC PAIN (6) Multiple sclerosis Assessment/Plan: -home meds Code(s): G35 - MULTIPLE SCLEROSIS (7) Weakness Assessment/Plan: - Likely secondary to MS Flare vs Chronic Pain - Monitor CBC, BMP - Gentle IVF - Monitor vitals - Appreciate PT consult for conditioning Code(s): R53.1 - WEAKNESS (8) Spinal stenosis Assessment/Plan: -NS consult noted -await medical work up Code(s): M48.00 - SPINAL STENOSIS, SITE UNSPECIFIED
[2017-11-07] MEDS: LOSARTAN POTASSIUM 50 MG TABLET (FP) PO SCH (09:35)
[2017-11-07] MEDS: ASPIRIN COATED 81 MG TABLET.EC PO SCH (09:35)
[2017-11-07] MEDS: PANTOPRAZOLE 40 MG TABLET (FP) PO SCH (09:35)
[2017-11-07] MEDS: FUROSEMIDE 20 MG TABLET (FP) PO SCH (09:36)
[2017-11-07] MEDS: clonazePAM 0.5 MG TABLET PO SCH ×2 (09:37→22:50)
[2017-11-07] MEDS: amLODIPine BESYLATE 2.5 MG TABLET (FP) PO SCH (09:37)
[2017-11-07] MEDS: FERROUS SO4 325 MG TABLET (FP) PO SCH (09:37)
--- NOTE | 2017-11-07 14:13 | CONSULT ---
Consult - text type - Consultation Consultation Note: ENT Consult 72 yo woman with right otalgia x 1 day. Saw blood when she put her finger in her ear this morning. P/Neck is moderately tender in the right c spine region, including the right transverse process of C2 and less tender in the right TMJ AU EAC/TMs are normal Nose normal OC/OP normal Imp: referred otalgia from neck pain and possibly from TM dysfunction Recommend: outpatient follow up if not improving with treatment of her cervical musculoskeletal pain
--- NOTE | 2017-11-07 14:18 | PN ---
Progress Note (short form) - Note Progress Note: pt seen and examined. continues to be calm today worsening hematological parameter. Constitutional: Yes: in no Distress HENT: Yes: Atraumatic, Normocephalic Neck: Yes: Supple Cardiovascular: Yes: Regular Rate and Rhythm Respiratory: Yes: Regular Gastrointestinal: Yes: Soft, Abdomen, Obese, Tenderness Edema: Yes Neurological: Yes: AAOX3 Last Vital Signs Temp Pulse Resp BP Pulse Ox 99.2 F 83 20 149/50 95 11/07/17 09:28 11/07/17 09:28 11/07/17 09:28 11/07/17 09:28 11/06/17 21:00 CBC, BMP 11/07/17 06:00 11/07/17 06:00 Current Medications Generic Name Dose Route Start Last Admin Trade Name Freq PRN Reason Stop Dose Admin Acetaminophen 325 mg 11/05/17 01:19 11/07/17 05:37 Tylenol - PO 325 mg Q8H PRN Administration PAIN LEVEL 6-10 Amlodipine Besylate 2.5 mg 11/05/17 10:00 11/07/17 09:37 Norvasc - PO 2.5 mg DAILY [facility] Administration Aspirin 81 mg 11/05/17 10:00 11/07/17 09:35 Ecotrin - PO 81 mg DAILY [facility] Administration Clonazepam 0.5 mg 11/06/17 22:00 11/07/17 09:37 Klonopin - PO 0.5 mg BID [facility] Administration Diphenhydramine HCl 25 mg 11/06/17 15:46 11/06/17 21:40 Benadryl - PO 25 mg BID PRN Administration itch Docusate Sodium 300 mg 11/05/17 22:00 11/06/17 21:40 Colace - PO 300 mg HS [facility] Administration Ferrous Sulfate 325 mg 11/05/17 10:00 11/07/17 09:37 Feosol - PO 325 mg DAILY [facility] Administration Furosemide 20 mg 11/05/17 10:00 11/07/17 09:36 Lasix - PO 20 mg DAILY [facility] Administration Gabapentin 400 mg 11/05/17 06:00 11/07/17 14:03 Neurontin - PO 400 mg TID [facility] Administration Heparin Sodium (Porcine) 5,000 unit 11/05/17 06:00 11/07/17 14:03 Heparin - SQ 5,000 unit TID [facility] Administration Hydromorphone HCl 2 mg 11/05/17 09:04 11/06/17 16:26 Dilaudid - PO 2 mg Q4HWA PRN Administration PAIN LEVEL 4 - 6 Piperacillin Sod/Tazobactam 50 mls @ 100 mls/hr 11/05/17 11:15 11/07/17 09:36 Sod 3.375 gm/ Dextrose IVPB 100 mls/hr Q8H-IV [facility] Administration Protocol Losartan Potassium 50 mg 11/05/17 10:00 11/07/17 09:35 Cozaar - PO 50 mg DAILY [facility] Administration Ondansetron HCl 4 mg 11/06/17 15:46 11/06/17 21:41 Zofran Injection IVPUSH 4 mg Q8H PRN Administration NAUSEA Oxycodone HCl 10 mg 11/05/17 01:18 11/07/17 05:37 Roxicodone - PO 10 mg Q8H PRN Administration PAIN LEVEL 6-10 Pantoprazole Sodium 40 mg 11/05/17 10:00 11/07/17 09:35 Protonix - PO 40 mg DAILY [facility] Administration Senna 1 tab 11/05/17 01:06 11/05/17 23:36 Senna - PO 1 tab DAILY PRN Administration CONSTIPATION Leucocytosis/anemia/Thrombocytosis Suspicious for MPD, but no splenomegaly await w/u--all are send out tests. if positive for the w/u, will start hydrea BRANDON. LDH is >400 IVF, allopurinol started Elevated RF will obtain rheumatological consultation to help in aiding the etiology of these generalized body pains. ?concern for reactive causes will c/w asa Pt has h/o chronic pain syndrome appreciate 's assessment/recs Neurological issues: Has CT evidence of cord compression ?neurologic etiology Neuro and NSG recommendations reviewed. if this is MPD, platelet count >1mil, risk for Bleeding manifestations ,as well as thrombosis may be high. will need to await VW w/u Problem List - Problems (1) Leukocytosis Code(s): D72.829 - ELEVATED WHITE BLOOD CELL COUNT, UNSPECIFIED Qualifiers: Leukocytosis type: unspecified Qualified Code(s): D72.829 - Elevated white blood cell count, unspecified (2) Thrombocytosis Code(s): D47.3 - ESSENTIAL (HEMORRHAGIC) THROMBOCYTHEMIA (3) Chronic pain of multiple joints Code(s): M25.50 - PAIN IN UNSPECIFIED JOINT; G89.29 - OTHER CHRONIC PAIN
[2017-11-07] MEDS ORDERED: SODIUM CHLORIDE 1,000 ML IV SCH ×2 (14:30→22:45)
[2017-11-07 14:55] LABS: LDH 436 U/L (84-246)
--- NOTE | 2017-11-07 15:13 | PN ---
Progress Note (short form) - Note Progress Note: nad less pain alert Vital Signs Period Temp Pulse Resp BP Sys/Teague Pulse Ox Last 24 Hr 98.5 F-100.0 F 83-88 18-20 142-158/50-86 95 cor-rrr lungs clear abd soft,nt ext trace edema CBC, BMP 11/07/17 06:00 11/07/17 06:00 Microbiology 11/06/17 20:15 Stool Clostridium difficile Antigen (KEON) - Final 11/06/17 20:15 Stool Clostridium difficile Toxin Assay - Final 11/04/17 20:00 Blood - Peripheral Venous Blood Culture - Preliminary NO GROWTH OBTAINED AFTER 48 HOURS, INCUBATION TO CONTINUE FOR 3 DAYS. 11/04/17 20:00 Blood - Peripheral Venous Blood Culture - Preliminary NO GROWTH OBTAINED AFTER 48 HOURS, INCUBATION TO CONTINUE FOR 3 DAYS. 11/04/17 21:05 Urine - Urine - Catheterized Urine Culture - Final NO GROWTH OBTAINED imaging reviewed in the computer imp/reccd leukocytosis/thrombocytosis diffuse myalgias urince culture is negative cultures are negative d/c antibiotics heme eval ongoing chronic pain Problem List - Problems (1) Leukocytosis Code(s): D72.829 - ELEVATED WHITE BLOOD CELL COUNT, UNSPECIFIED Qualifiers: Leukocytosis type: unspecified Qualified Code(s): D72.829 - Elevated white blood cell count, unspecified (2) Thrombocytosis Code(s): D47.3 - ESSENTIAL (HEMORRHAGIC) THROMBOCYTHEMIA (3) UTI (urinary tract infection) Code(s): N39.0 - URINARY TRACT INFECTION, SITE NOT SPECIFIED Qualifiers: Urinary tract infection type: acute cystitis Hematuria presence: without hematuria Qualified Code(s): N30.00 - Acute cystitis without hematuria (4) Chronic pain of multiple joints Code(s): M25.50 - PAIN IN UNSPECIFIED JOINT; G89.29 - OTHER CHRONIC PAIN
[2017-11-07] MEDS: ALLOPURINOL 100 MG TABLET (FP) PO SCH (16:13)
--- NOTE | 2017-11-07 18:08 | PN ---
Progress Note (short form) - Note Progress Note: 72 year old female history of MS, Stroke in past, ckd, She came with generalized bodyache. . SHe is very tender all over the body and she is very jumpy. Alysha was seen by psychiastrist, ID, Vascular . So far nothing specific was identified. She is quite vague in her description. She has MS and is on Avonex ( as per patient) . She is seeing Dr Valera as outpatient. Patient is not mobile at home, as per records. Dr Flores suggest to do surgery. Patient is not sure. She has high wbc and being investigated for possible cause Neurological vss afebrile Alert and follow command, no neck sitffness Upper extremity is grade 4, reflex are grade 1 lower extremity , she has grade 2 plus on right isde and grade 2 on left leg diminished senation in lower extremity upto groin area ( old due to MS) reflex are diminished IN LOWER EXTREMITY Mri of c spine reviewed with Dr Flores, Ct of L spine reviewed and showed djd Assessment.1 Cervicogenic headhace , slightly better continue current level of care, Laminectomy suggested by Neurosurgery . She has multiple medical comorbidity and being investigated for high wbc. 2. Low back pain , Spinal L spine report reviewed, severe djd . 3. MS stable continue current level of care Thanking you so much Daomn Beauchamp MD
[2017-11-07] MEDS: HYDROmorphone HCL 2 MG TABLET PO PRN (18:46)
[2017-11-07] MEDS ORDERED: HALOPERIDOL LACTATE 5 MG/ML IM ONE (20:22)
[2017-11-07] MEDS ORDERED: HALOPERIDOL LACTATE 5 MG/ML ONE (20:32)
[2017-11-07 20:41] LABS: ALLENS TEST POSITIVE; ARTERIAL BLD GAS O2 SATURATION 99.8 % (90-98.9); ARTERIAL BLOOD GAS BASE EXCESS 1.5 meq/l (-2-2); ARTERIAL BLOOD GAS PCO2 45.9 mmHg (35-45); ARTERIAL BLOOD GAS pH 7.38 (7.35-7.45)
[2017-11-07 20:54] LABS: HEMATOCRIT 30.3 % (32.4-45.2); HEMOGLOBIN 9.1 GM/dL (10.7-15.3); MCH 25.1 pg (25.7-33.7); MCHC 30.1 g/dl (32.0-36.0); MEAN CELL VOLUME 83.3 fl (80-96); MEAN PLT VOLUME 8.4 fl (7.5-11.1); RBC 3.64 M/mm3 (3.60-5.2); RDW 16.1 % (11.6-15.6)
[2017-11-07 20:58] LABS: PLATELET COUNT 1552 K/MM3 (134-434)
[2017-11-07 21:00] LABS: WHITE BLOOD COUNT 71.1 K/mm3 (4.0-10.0)
[2017-11-07] MEDS ORDERED: SODIUM CHLORIDE 500 ML IV STA (21:43)
--- NOTE | 2017-11-07 22:37 | RAPID ---
Physical Examination Vital Signs: Vital Signs T97.8, BP avg 120's/80's - repeated multiple times. HR 80's. RR; 12 breaths/min Eyes: Yes: Conjunctiva Clear, EOM Intact, PERRL HENT: Yes: Atraumatic, Normocephalic Neck: Yes: Supple, Trachea Midline Cardiovascular: Yes: Regular Rate and Rhythm Respiratory: Yes: On Venti-Mask Gastrointestinal: Yes: Soft, Abdomen, Obese Extremities: Yes: WNL Edema: No Neurological: Yes: Confusion, Seizure. No: Facial Droop, Lethargy Labs: CBC, BMP 11/07/17 20:25 Rapid Response - Rapid Response Assessment: 72 yr old woman with MS hx of stroke, hx of ckd, came with generalized bodyache being treated for UTI and being investigated for elevated white count. Pt with multiple tonic clonic seizures while being examined. when post ictal she is confused, unable to recall her name or where she is. required multiple doses of ativan and haldol for sedation. stat labs ordered. head ct w.o contrast ordered. Recommendations/Interventions: labs reveal elevated lactic acid, likely from seizure activity. IVF NS started, repeat lactic acid ordered pt transfered to tele for closer monitering
[2017-11-07] MEDS: DOCUSATE SODIUM 100 MG CAPSULE (FP) PO SCH (22:50)
[2017-11-07 23:06] LABS: ALBUMIN 3.3 g/dl (3.4-5.0); ALK PHOS 119 U/L (45-117); ANION GAP 11 (8-16); BILIRUBIN,TOTAL 0.2 mg/dL (0.2-1.0); BLOOD UREA NITROGEN 12 mg/dL (7-18); CALCIUM 8.5 mg/dL (8.5-10.1); CHLORIDE 106 mmol/L (98-107); CO2 26 mmol/L (21-32); CREATININE 1.2 mg/dL (0.55-1.02); GLUCOSE,RANDOM 144 mg/dL (74-106); MAGNESIUM 1.7 mg/dL (1.8-2.4); PHOSPHOROUS 3.9 mg/dL (2.5-4.9); POTASSIUM 3.7 mmol/L (3.5-5.1); SGOT/AST 21 U/L (15-37); SGPT/ALT 15 U/L (12-78); SODIUM 143 mmol/L (136-145); TOT PROT 6.7 g/dl (6.4-8.2)
[2017-11-08] MEDS ORDERED: MAGNESIUM SULF 50% (8.12 MEQ/2 ML-1 GM VIAL) IVPB ONE (02:31)
[2017-11-08 06:11] LABS: RISTOCETIN CO-FACTOR 34 % (50-200)
[2017-11-08] MEDS: HEPARIN NA (PORCINE) 5,000 UNITS/ML 1ML VIAL SQ SCH ×3 (06:15→22:38)
[2017-11-08] MEDS: GABAPENTIN 400 MG CAPSULE (FP) PO SCH ×3 (06:15→22:35)
[2017-11-08 07:58] LABS: BASO % 6.2 % (0-2.0); EOS % 1.1 % (0-4.5); HEMATOCRIT 27.7 % (32.4-45.2); HEMOGLOBIN 8.6 GM/dL (10.7-15.3); LYMPH % 8.2 % (8-40); MCH 25.8 pg (25.7-33.7); MCHC 31.1 g/dl (32.0-36.0); MEAN CELL VOLUME 82.9 fl (80-96); MEAN PLT VOLUME 8.7 fl (7.5-11.1); MONO % 4.9 % (3.8-10.2); NEUT % 79.6 % (42.8-82.8); RBC 3.34 M/mm3 (3.60-5.2)
[2017-11-08 08:10] LABS: CHLORIDE 107 mmol/L (98-107); POTASSIUM 3.9 mmol/L (3.5-5.1); SODIUM 145 mmol/L (136-145)
[2017-11-08 08:15] LABS: PLATELET COUNT 1451 K/MM3 (134-434); WHITE BLOOD COUNT 65.5 K/mm3 (4.0-10.0)
[2017-11-08] MEDS ORDERED: PT OWN MED DRAWER 7, Y5N ONE ×2 (08:18→22:29)
[2017-11-08 08:35] LABS: ALK PHOS 104 U/L (45-117); ANION GAP 8 (8-16); BILIRUBIN,TOTAL 0.2 mg/dL (0.2-1.0); CALCIUM 8.7 mg/dL (8.5-10.1); CO2 30 mmol/L (21-32); CREATININE 1.1 mg/dL (0.55-1.02); GLUCOSE,RANDOM 87 mg/dL (74-106); LDH 354 U/L (84-246); SGOT/AST 18 U/L (15-37); SGPT/ALT 13 U/L (12-78); TOT PROT 6.2 g/dl (6.4-8.2); URIC ACID 5.1 mg/dL (2.6-7.2)
[2017-11-08 08:38] LABS: BLOOD UREA NITROGEN 13 mg/dL (7-18)
--- NOTE | 2017-11-08 09:27 | PN ---
Progress Note, Physician - Current Medication List Current Medications: Active Medications Acetaminophen (Tylenol -) 325 mg PO Q8H PRN PRN Reason: PAIN LEVEL 6-10 Last Admin: 11/07/17 05:37 Dose: 325 mg Allopurinol (Zyloprim -) 100 mg PO DAILY [facility] Last Admin: 11/07/17 16:13 Dose: 100 mg Amlodipine Besylate (Norvasc -) 2.5 mg PO DAILY [facility] Last Admin: 11/07/17 09:37 Dose: 2.5 mg Aspirin (Ecotrin -) 81 mg PO DAILY [facility] Last Admin: 11/07/17 09:35 Dose: 81 mg Clonazepam (Klonopin -) 0.5 mg PO BID [facility] Last Admin: 11/07/17 22:50 Dose: Not Given Diphenhydramine HCl (Benadryl -) 25 mg PO BID PRN PRN Reason: itch Last Admin: 11/06/17 21:40 Dose: 25 mg Docusate Sodium (Colace -) 300 mg PO HS [facility] Last Admin: 11/07/17 22:50 Dose: Not Given Ferrous Sulfate (Feosol -) 325 mg PO DAILY [facility] Last Admin: 11/07/17 09:37 Dose: 325 mg Furosemide (Lasix -) 20 mg PO DAILY [facility] Last Admin: 11/07/17 09:36 Dose: 20 mg Gabapentin (Neurontin -) 400 mg PO TID [facility] Last Admin: 11/08/17 06:15 Dose: 400 mg Heparin Sodium (Porcine) (Heparin -) 5,000 unit SQ TID [facility] Last Admin: 11/08/17 06:15 Dose: 5,000 unit Losartan Potassium (Cozaar -) 50 mg PO DAILY [facility] Last Admin: 11/07/17 09:35 Dose: 50 mg Ondansetron HCl (Zofran Injection) 4 mg IVPUSH Q8H PRN PRN Reason: NAUSEA Last Admin: 11/06/17 21:41 Dose: 4 mg Pantoprazole Sodium (Protonix -) 40 mg PO DAILY [facility] Last Admin: 11/07/17 09:35 Dose: 40 mg Senna (Senna -) 1 tab PO DAILY PRN PRN Reason: CONSTIPATION Last Admin: 11/05/17 23:36 Dose: 1 tab - Objective Vital Signs: Vital Signs Temperature 98.2 F 05/31/18 06:00 Pulse Rate 63 11/08/17 06:00 Respiratory Rate 18 11/08/17 06:00 Blood Pressure 125/55 11/08/17 06:00 O2 Sat by Pulse Oximetry (%) 97 11/07/17 22:15 Cardiovascular: Yes: S1, S2 Respiratory: Yes: Regular, CTA Bilaterally Gastrointestinal: Yes: Normal Bowel Sounds, Soft Neurological: Yes: Alert, Oriented Labs: CBC, BMP 11/08/17 06:58 11/08/17 06:58 INR, PTT INR 1.24 (0.82-1.09) H 11/05/17 09:03 Problem List - Problems (1) UTI (urinary tract infection) Assessment/Plan: - Urine Culture-pending - Given Vancomycin for ?sepsis - Will treat with Levaquin - Monitor vitals - dc mayer - id consult Code(s): N39.0 - URINARY TRACT INFECTION, SITE NOT SPECIFIED Qualifiers: Urinary tract infection type: acute cystitis Hematuria presence: without hematuria Qualified Code(s): N30.00 - Acute cystitis without hematuria (2) Leukocytosis Assessment/Plan: - Likely secondary hematological etiology r/o Malignancy - Repeat CBC - Appreciate Hematology Consult--await follow up - Continue ABX? - Monitor vitals Code(s): D72.829 - ELEVATED WHITE BLOOD CELL COUNT, UNSPECIFIED Qualifiers: Leukocytosis type: unspecified Qualified Code(s): D72.829 - Elevated white blood cell count, unspecified (3) Anxiety and depression Assessment/Plan: - Continue home meds - FU with psych outpatient Code(s): F41.9 - ANXIETY DISORDER, UNSPECIFIED; F32.9 - MAJOR DEPRESSIVE DISORDER, SINGLE EPISODE, UNSPECIFIED (4) Diabetes Assessment/Plan: -bgm -endo Code(s): E11.9 - TYPE 2 DIABETES MELLITUS WITHOUT COMPLICATIONS Qualifiers: Diabetes mellitus type: type 2 (5) Chronic pain of multiple joints Assessment/Plan: (9) Cervical stenosis of spine/Degenerative disc disease - Continue home meds - FU with pain management outpatient -add dilaudid Code(s): M25.50 - PAIN IN UNSPECIFIED JOINT; G89.29 - OTHER CHRONIC PAIN (6) Multiple sclerosis Assessment/Plan: -home meds Code(s): G35 - MULTIPLE SCLEROSIS (7) Weakness Assessment/Plan: - Likely secondary to MS Flare vs Chronic Pain - Monitor CBC, BMP - Gentle IVF - Monitor vitals - Appreciate PT consult for conditioning Code(s): R53.1 - WEAKNESS (8) Spinal stenosis Assessment/Plan: -NS consult noted -await medical work up Code(s): M48.00 - SPINAL STENOSIS, SITE UNSPECIFIED (9) Seizure Assessment/Plan: CT head no change -Neuro Code(s): R56.9 - UNSPECIFIED CONVULSIONS
--- NOTE | 2017-11-08 09:31 | CONSULT ---
Consult - text type - Consultation Consultation Note: NEUROLOGY CONSULTATION is greatly appreciated: Dr. Beauchamp's coverage consultation is greatly appreciated. Events reviewed and discussed with Dr. Menchaca this AM. This 72 yo RH div. woman lives home with long-term health aide, Michelle. PMH of HTN, DM, GERD and Gout. Known to me over 2 decades. Carries Dx of Possible MS but may be a Migraine MRI Mimic. Is emotionally dependent on Avonex IM q weekly but has never had a known exacerbation. H/O migraine headaches when younger-improved after menopause. Chronic aches and pains in her arms and legs, worst at night, have responded to Pramipexole .5 BID but patient ran out of meds in August/September and pains gradually recurred. Walks with walker at home, independently. Chronic urinary frequency. Admitted by Dr. De Leon after bloods revealed "increased counts." On admission WBC around 70 K and platelets > 1550. Dr. Packer agrees with probable Myeloproliferative disease. Last night complained of right periauricular headache and had a witnessed generalized seizure with post-ictal confusion and was transferred to . CT of head, performed on admission and again last night (reviewed) reveal scattered subcortical microvascular changes. Repeat chemistries normal. Cr=1.1 TIBC elevated. ESR=28 mm/hr. CRP=.5 mg%. CK= 124IU. MRI of C spine (reviewed):: Loss of height at C3, C4, C5, C6. Washboard appearance with C6C7 HNP and mild posterior cord displacement. ANKIT: Pt is anxious, tearful and frightened. NEURO: MS/Speech: Normal CN II-XII: Normal. Motor: No drift. Rhythmic arm mov'ts stop on command. Left grasp and finger extensors may be weak. Normal toe and ankle dorsiflexion with encouragement. Normal reflexes. Toes downgoing. Coord: Normal FTN Sensory: Normal vibration in feet. IMP: 1. New onset seizure. 2. R/o cortical vein/sinus thrombosis possibly associated with thrombocythemia/coagulopathy. 3. Possible MS 4. 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 SUGGEST: MRI of brain (C-) and MR Venogram of brain Start Levetiracetam 500 mg PO BID Continue clonazepam 0.5 mg q 12 hrs Resume pramipexole .25 mg BID NO SPINAL SURGERY Proceed with Bone marrow biopsy. Thank you very much, Donald West MD
[2017-11-08] MEDS: ASPIRIN COATED 81 MG TABLET.EC PO SCH (09:47)
[2017-11-08] MEDS: FUROSEMIDE 20 MG TABLET (FP) PO SCH (09:47)
[2017-11-08] MEDS: clonazePAM 0.5 MG TABLET PO SCH ×2 (09:48→22:36)
[2017-11-08] MEDS: LOSARTAN POTASSIUM 50 MG TABLET (FP) PO SCH (09:48)
[2017-11-08] MEDS: ALLOPURINOL 100 MG TABLET (FP) PO SCH (09:48)
[2017-11-08] MEDS: PANTOPRAZOLE 40 MG TABLET (FP) PO SCH (09:48)
[2017-11-08] MEDS: FERROUS SO4 325 MG TABLET (FP) PO SCH (09:48)
[2017-11-08] MEDS: amLODIPine BESYLATE 2.5 MG TABLET (FP) PO SCH (09:48)
[2017-11-08] MEDS: levETIRAcetam 500 MG TABLET (FP) PO SCH ×2 (10:18→22:36)
[2017-11-08 11:37] LABS: MAGNESIUM 2.3 mg/dL (1.8-2.4)
[2017-11-08] MEDS ORDERED: HYDROXYUREA 500 MG CAPSULE PO SCH (12:00)
[2017-11-08] MEDS ORDERED: ALLOPURINOL 300 MG TABLET (FP) PO ONE (12:30)
--- NOTE | 2017-11-08 12:51 | PATH ---
Surgical Pathology Report Patient Name: NICK COOK [facility]. Rec. 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 Specimen(s) Received PERIPHERAL BLOOD Clinical History New leukocytosis, thrombocytosis Final Diagnosis COMPREHENSIVE FLOW PAN[facility] [place] ([id number]) shows the following: INTERPRETATION: Granulocytosis with left-shift and rare blasts (see comment). COMMENT: The differential diagnosis includes a reactive condition or a myeloproliferative neoplasm. Please correlate with morphologic, clinical and cytogenetic/molecular findings for further classification. See [facility] report ([id number]) for additional details. BCR-ABL Gene Rearrangement (IS) Analysis performed and interpreted at [place], [place] ([id number]) shows the following: RESULTS: Positive BCR/ABL Major breakpoints (b2a2 and b3a2): Detected Ratio:100.665 % International Scale Value 77.603 BCR/ABL Minor breakpoint (e1a2): Not Detected INTERPRETATION: BCR-ABL translocation was detected in this sample. See [facility] report ([id number]) for additional details. Electronically Signed Kala Jimenez M.D. Addendum Reported: 11/13/2017 Addendum Diagnosis Molecular Pathology Report received from [facility] in [place], [place] ([id number]) shows JAK2 [id number] MUTATION ANALYSIS BY PCR RESULTS: Only the wild-type JAK2 sequence was detected. INTERPRETATION: Negative for JAK2 (V617F) mutation. See [facility] report for details. Kala Jimenez M.D.
[2017-11-08] MEDS: NYSTATIN POWDER 100,000 UNITS/GM - 15 GM TOPICAL POWDER TP SCH (13:05)
[2017-11-08 13:24] LABS: PLATELET ESTIMATE INCREASED
--- NOTE | 2017-11-08 13:42 | PN ---
Progress Note (short form) - Note Progress Note: pt seen and examined. events noted. pt feels tired. But no specific complains Constitutional: Yes: in no Distress HENT: Yes: Atraumatic, Normocephalic Neck: Yes: Supple Cardiovascular: Yes: Regular Rate and Rhythm Respiratory: Yes: Regular Gastrointestinal: Yes: Soft, Abdomen, Obese, Tenderness Edema: Yes Neurological: Yes: AAOX3 Last Vital Signs Temp Pulse Resp BP Pulse Ox 99.2 F 83 20 149/50 95 11/07/17 09:28 11/07/17 09:28 11/07/17 09:28 11/07/17 09:28 11/06/17 21:00 CBC, BMP 11/07/17 06:00 11/07/17 06:00 Current Medications Generic Name Dose Route Start Last Admin Trade Name Freq PRN Reason Stop Dose Admin Acetaminophen 325 mg 11/05/17 01:19 11/07/17 05:37 Tylenol - PO 325 mg Q8H PRN Administration PAIN LEVEL 6-10 Amlodipine Besylate 2.5 mg 11/05/17 10:00 11/07/17 09:37 Norvasc - PO 2.5 mg DAILY [facility] Administration Aspirin 81 mg 11/05/17 10:00 11/07/17 09:35 Ecotrin - PO 81 mg DAILY [facility] Administration Clonazepam 0.5 mg 11/06/17 22:00 11/07/17 09:37 Klonopin - PO 0.5 mg BID [facility]IE Administration Diphenhydramine HCl 25 mg 11/06/17 15:46 11/06/17 21:40 Benadryl - PO 25 mg BID PRN Administration itch Docusate Sodium 300 mg 11/05/17 22:00 11/06/17 21:40 Colace - PO 300 mg HS ROSALIE Administration Ferrous Sulfate 325 mg 11/05/17 10:00 11/07/17 09:37 Feosol - PO 325 mg DAILY [facility] Administration Furosemide 20 mg 11/05/17 10:00 11/07/17 09:36 Lasix - PO 20 mg DAILY [facility] Administration Gabapentin 400 mg 11/05/17 06:00 11/07/17 14:03 Neurontin - PO 400 mg TID [facility]IE Administration Heparin Sodium (Porcine) 5,000 unit 11/05/17 06:00 11/07/17 14:03 Heparin - SQ 5,000 unit TID [facility]IE Administration Hydromorphone HCl 2 mg 11/05/17 09:04 11/06/17 16:26 Dilaudid - PO 2 mg Q4HWA PRN Administration PAIN LEVEL 4 - 6 Piperacillin Sod/Tazobactam 50 mls @ 100 mls/hr 11/05/17 11:15 11/07/17 09:36 Sod 3.375 gm/ Dextrose IVPB 100 mls/hr Q8H-IV ROSALIE Administration Protocol Losartan Potassium 50 mg 11/05/17 10:00 11/07/17 09:35 Cozaar - PO 50 mg DAILY ROSLAIE Administration Ondansetron HCl 4 mg 11/06/17 15:46 11/06/17 21:41 Zofran Injection IVPUSH 4 mg Q8H PRN Administration NAUSEA Oxycodone HCl 10 mg 11/05/17 01:18 11/07/17 05:37 Roxicodone - PO 10 mg Q8H PRN Administration PAIN LEVEL 6-10 Pantoprazole Sodium 40 mg 11/05/17 10:00 11/07/17 09:35 Protonix - PO 40 mg DAILY ROSALIE Administration Senna 1 tab 11/05/17 01:06 11/05/17 23:36 Senna - PO 1 tab DAILY PRN Administration CONSTIPATION Assessment/Plan: CHRONIC Myeloid Leukemia--- BCR ABL positive (diagnosed today with peripheral blood flow cytometry and Translocation t9;22) rare Blasts, not in accelerated phase the present translocation known to drive the platelet count for quicker reduction of the cell lines--will start Hydrea 2g Bid(to taper as tolerated), and Gleevac 400mg(d/w pharmacy). c/w 300mg allopurinol c/w IVF daily CBC/LDH/Uric acid Assess for PRBCs tomorrow. pt with LOW VW ag levels--34, due to high platelet count await Ristociten STOPped asa 325mg Watchful continuing of ASA 81. NEW onset seizures: ?etiology d/w f/u MR imaging r/o sinus thrombosis Hematological further recs pending the MRI findings if a thrombus found. monitor mental status. Remote H/o ?Lung adenoca(s/p resection??) in 2011? await CT chest Await MRI brain Elevated RA/+HALIMA: 1:325 Await Rheum w/u Pt has h/o chronic pain syndrome appreciate 's assessment/recs Neurological issues: Has CT evidence of cord compression ?neurologic etiology Neuro and NSG recommendations reviewed. pt with, platelet count >1mil, risk for Bleeding manifestations ,as well as thrombosis may be high. complicated clinical situation. d/w Pt d/w , , RN. pharmacy. [id number] Problem List - Problems (1) Leukocytosis Code(s): D72.829 - ELEVATED WHITE BLOOD CELL COUNT, UNSPECIFIED Qualifiers: Leukocytosis type: unspecified Qualified Code(s): D72.829 - Elevated white blood cell count, unspecified (2) Thrombocytosis Code(s): D47.3 - ESSENTIAL (HEMORRHAGIC) THROMBOCYTHEMIA (3) Chronic pain of multiple joints Code(s): M25.50 - PAIN IN UNSPECIFIED JOINT; G89.29 - OTHER CHRONIC PAIN
[2017-11-08] MEDS: PRAMIPEXOLE DIHYDROCHLORIDE 0.25 MG TABLET PO SCH ×2 (13:56→22:37)
[2017-11-08] MEDS: HYDROXYUREA 500 MG CAPSULE PO SCH ×2 (13:56→23:06)
[2017-11-08] MEDS: IMATINIB MESYLATE 100 MG TABLET PO SCH (15:45)
[2017-11-08] MEDS ORDERED: LORazepam 2 MG/ML SDV VIAL ONE ×5 (16:36→21:26)
[2017-11-08] MEDS ORDERED: LORazepam 2 MG/ML SDV VIAL IVPUSH ONE ×2 (16:38→16:53)
[2017-11-08] MEDS ORDERED: levETIRAcetam 500 MG/5 ML INJECTION VIAL IVPB ONE (16:40)
[2017-11-08] MEDS ORDERED: LORazepam 2 MG/ML SDV VIAL IVPUSH STA (16:47)
--- NOTE | 2017-11-08 16:51 | RAPID ---
Physical Examination Vital Signs: Vital Signs Temperature 98.2 F 11/08/17 14:24 Pulse Rate 77 11/08/17 14:24 Respiratory Rate 18 11/08/17 14:24 Blood Pressure 154/68 11/08/17 14:24 O2 Sat by Pulse Oximetry (%) 97 11/07/17 22:15 Constitutional: Yes: Anxious, Moderate Distress Cardiovascular: Yes: Tachycardia. No: Murmur Respiratory: Yes: On Nasal O2, Other (+RLL crackles, shallow breathing) Labs: CBC, BMP 11/08/17 06:58 11/08/17 06:58 Rapid Response - Rapid Response Assessment: At 4:30pm, nurse walked into the pt's room to check on her neighbor's blood sugar. Pt called out, "I don't feel good." Nurse went to check her BP, and noted that she started seizing - tonic clonic movements in upper and lower extremities , rapid response called. Movements lasted for ten seconds before stopping. Pt foaming at mouth, without urinary or bowel incontinence. Pt had used bed bunch ten minutes prior to episode. When team arrived, pt no longer seizing. Instead, groaning and continuing to foam at the mouth. Received stat ativan 1mg x1, neuro contacted. Keppra loading dose 1000mg IV x 1 given. Stat EKG done -showed new new changes in V4, V5 - t wave inversions compared to prior. At time, pt with BP 147/74, HR 88bpm. Stabilized. At 4:36 pm, pt underwent additional seizure, and was given additional stat ativan 2mgx1. Called a third time, as pt with additional seizure like activity, however on examination, pt without activity. Pt seized once again at 5:30pm, received ativan 2mg additionally. D/w Dr. West, will take 1 hr for Keppra loading dose to be effective and reach brain. PE -GENERAL: groaning, foaming at the mouth -HEENT: atraumatic, normocephalic -RESP: +RLL crackles, shallow breathing -CARDIO: tachycardic rate, no rubs, murmurs, gallops appreciated -ABD: soft, obese, nondistended -NEURO: pupils reactive to light, unable to appreciate full neuro exam as pt seizing. tracks to verbal stimulus -EXTREMITIES: no edema Pt subsequently transferred to ICU. Care maintained. Will f/u Thank you
[2017-11-08 20:52] LABS: ALK PHOS 104 U/L (45-117); ANION GAP 8 (8-16); BILIRUBIN,TOTAL 0.1 mg/dL (0.2-1.0); BLOOD UREA NITROGEN 14 mg/dL (7-18); CALCIUM 8.6 mg/dL (8.5-10.1); CHLORIDE 104 mmol/L (98-107); CO2 30 mmol/L (21-32); CREATININE 1.1 mg/dL (0.55-1.02); GLUCOSE,RANDOM 83 mg/dL (74-106); SGPT/ALT 13 U/L (12-78); SODIUM 142 mmol/L (136-145); TOT PROT 6.1 g/dl (6.4-8.2)
[2017-11-08] MEDS ORDERED: MIDAZOLAM HCL 2 MG/2 ML SINGLE DOSE VIAL IVPUSH ONE ×2 (20:54→22:31)
[2017-11-08] MEDS ORDERED: MIDAZOLAM HCL 2 MG/2 ML SINGLE DOSE VIAL ONE ×3 (20:57→21:11)
[2017-11-08 21:02] LABS: POTASSIUM 4.3 mmol/L (3.5-5.1); SGOT/AST 24 U/L (15-37)
[2017-11-08] MEDS ORDERED: CALCIUM GLUCONATE 10% - 1,000 MG/10 ML VIAL IVPB PRN ×2 (21:12→21:16)
[2017-11-08 21:37] LABS: URINE AMPHETAMINES NEGATIVE ng/ml (CUTOFF=500); URINE BARBITURATES NEGATIVE ng/ml (CUTOFF=200); URINE BENZODIAZEPINES NEGATIVE ng/ml (CUTOFF=200)
[2017-11-08 21:38] LABS: COCAINE, UR NEGATIVE ng/ml (CUTOFF=300); METHADONE, UR NEGATIVE ng/ml (CUTOFF=300); PHENCYCLIDINE,URINE NEGATIVE ng/ml (CUTOFF=25)
[2017-11-08 21:39] LABS: OPIATES, URI POSITIVE ng/ml (CUTOFF=300)
[2017-11-08 21:43] LABS: ARTERIAL BLD GAS O2 SATURATION 75.8 % (90-98.9); ARTERIAL BLOOD GAS BASE EXCESS 4.7 meq/l (-2-2); ARTERIAL BLOOD GAS PCO2 54.2 mmHg (35-45); ARTERIAL BLOOD GAS pH 7.37 (7.35-7.45)
[2017-11-08 21:51] LABS: ARTERIAL BLOOD GAS PO2 41.9 mmHg (70-100)
--- NOTE | 2017-11-08 22:02 | PN ---
Progress Note (short form) - Note Progress Note: Pt presented to the Ed from tele due to active seizure and rapid response was called pt recieved 3 mg ativan and was hemodynamically stable pt had couple episode of flactuation in alertness and consciousness psuedoseizure possible Psychogenic vs real active pseizure that last 2 min and then regain her consciousness and back to normal response pt was found to have elevated platelets more than milions Femoral shiley was placed by JONAH Mary , consent was obtained from the sister . ABG was ordered to make sure the femoral cath is in the venous not the artery Dr phipps ordered platelet fereries for her. Toxicology screen positive for opiates and marijuana pt is hemodynamically stable PE : General: in NAD , with AAOx3 with fluctuation in consciousness and some episode of confusion Head: NC/AT Heart: RRR, No MRG Lungs: CTA B/L Abdomen : med epigastric tenderness , Hyperactive bowel sounds Legs: No edema Neuro: no focal deficit , AAOx 3 skin: warm dry.
[2017-11-08] MEDS ORDERED: ALLOPURINOL 100 MG TABLET (FP) PO SCH (22:15)
[2017-11-08] MEDS: DOCUSATE SODIUM 100 MG CAPSULE (FP) PO SCH (22:37)
--- NOTE | 2017-11-08 23:12 | CONSULT ---
Consult Consult Specialty:: Pulmonary Critical Care Reason for Consultation:: Seizures - History of Present Illness Chief Complaint: Seizures History of Present Illness: 72 yo F with h/o right hip replacement, left knee replacement, MS, OA, CVA, CKD- III, and chronic pain who initially presented to ED on 11/04 with constellation of symptoms (weakness, nausea, urinary discomfort, decreased appetite). Her initial labs notable for WBC of 45 and platelets 1438. Pt also ? head and neck pain. CT head negative for any acute processes and CT spine showed cervical spondylosis with spinal canal stenosis (known from before). She was admitted to medicine service for further w/u and evaluation. She was initially treated with Zosyn/Vanco for possible UTI, however all abx stopped once her cultures came back negative. Hematology has been following her since admission given severe leukocytosis and thrombocytosis and was diagnosed with chronic Myeloid Leukemia (via peripheral blood flow). She was also evaluated by neurology and neurosurgery given cord compression. 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 Pt given 4mg of ativan with resolution of seizures, keppra loaded. MRI/MRA brain done and pt subsequently admitted to ICU for further management. In ICU R femoral catheter placed and patient is now undergoing plateletpheresis. Current Medications Allopurinol (Zyloprim -) 300 mg PO DAILY [facility] Last Admin: 11/08/17 22:40 Dose: 300 mg Amlodipine Besylate (Norvasc -) 2.5 mg PO DAILY [facility] Last Admin: 11/08/17 09:48 Dose: 2.5 mg Aspirin (Ecotrin -) 81 mg PO DAILY [facility] Last Admin: 11/08/17 09:47 Dose: 81 mg Calcium Gluconate (Calcium Gluconate 10% -) 2,000 mg IVPB ONCE PRN PRN Reason: tingling Clonazepam (Klonopin -) 0.5 mg PO BID [facility] Last Admin: 11/08/17 22:36 Dose: 0.5 mg Docusate Sodium (Colace -) 300 mg PO HS [facility] Last Admin: 11/08/17 22:37 Dose: 300 mg Ferrous Sulfate (Feosol -) 325 mg PO DAILY [facility] Last Admin: 11/08/17 09:48 Dose: 325 mg Furosemide (Lasix -) 20 mg PO DAILY [facility] Last Admin: 11/08/17 09:47 Dose: 20 mg Gabapentin (Neurontin -) 400 mg PO TID [facility] Last Admin: 11/08/17 22:35 Dose: 400 mg Heparin Sodium (Porcine) (Heparin -) 5,000 unit SQ TID [facility] Last Admin: 11/08/17 22:38 Dose: 5,000 unit Hydromorphone HCl (Dilaudid -) 2 mg PO Q4H PRN PRN Reason: PAIN LEVEL 4 - 6 Hydroxyurea (Hydrea -) 2,000 mg PO BID [facility] Last Admin: 11/08/17 23:06 Dose: 2,000 mg Imatinib Mesylate (Gleevec (Restricted To Oncology) -) 400 mg PO DAILY [facility] Last Admin: 11/08/17 15:45 Dose: 400 mg Levetiracetam (Keppra -) 500 mg PO BID [facility] Last Admin: 11/08/17 22:36 Dose: 500 mg Losartan Potassium (Cozaar -) 50 mg PO DAILY [facility] Last Admin: 11/08/17 09:48 Dose: 50 mg Nystatin (Nystop Powder -) 1 applic TP DAILY [facility] Last Admin: 11/08/17 13:05 Dose: 1 applic Ondansetron HCl (Zofran Injection) 4 mg IVPUSH Q8H PRN PRN Reason: NAUSEA Last Admin: 11/06/17 21:41 Dose: 4 mg Oxycodone HCl (Roxicodone -) 10 mg PO TID PRN PRN Reason: PAIN LEVEL 7 - 10 Pantoprazole Sodium (Protonix -) 40 mg PO DAILY [facility] Last Admin: 11/08/17 09:48 Dose: 40 mg Pramipexole Dihydrochloride (Mirapex -) 0.25 mg PO TID [facility] Last Admin: 11/08/17 22:37 Dose: 0.25 mg Senna (Senna -) 1 tab PO DAILY PRN PRN Reason: CONSTIPATION Last Admin: 11/05/17 23:36 Dose: 1 tab - Past Medical History 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 Cardio/Vascular: Yes: HTN Pulmonary: Yes: Asthma, COPD Gastrointestinal: Yes: GERD (using walker at home ) Renal/: Yes: Renal Inusuff ...: No Psych: Yes: Depression Musculoskeletal: Yes: Osteoarthritis, Other (DDD) Rheumatology: Yes: Rheumatoid Arthritis Endocrine: Yes: Diabetes Mellitus Additional Medical History: as in HPI, morbidly obese - Past Surgical History Past Surgical History: Yes: Hysterectomy, Joint Replacement, Cholecystectomy - Alcohol/Substance Use Hx Alcohol Use: No History of Substance Use: reports: None - Smoking History Smoking history: Former smoker Have you smoked in the past 12 months: No Aproximately how many cigarettes per day: 0 If you are a former smoker, when did you quit?: many years ago - Social History Usual Living Arrangement: With Significant Other ADL: Independent History of Recent Travel: No Home Medications - Allergies Allergies/Adverse Reactions: Allergies Allergy/AdvReac Type Severity Reaction Status Date / Time Sulfa (Sulfonamide Allergy Severe Hives Verified 02/08/17 05:10 Antibiotics) - Home Medications Home Medications: Ambulatory Orders Amlodipine Besylate [Norvasc -] 2.5 mg PO DAILY 09/03/15 Ergocalciferol (Vitamin D2) [Drisdol] 50,000 units PO WEEKLY 09/03/15 Ferrous Sulfate [Feosol] 325 mg PO DAILY 09/03/15 Interferon Beta-1A [Avonex] 30 mcg IM WEEKLY 09/03/15 Sennosides [Senna] 8.6 mg PO DAILY PRN 09/03/15 Aspirin Coated [Ecotrin -] 81 mg PO DAILY #30 tablet.ec 09/10/15 Docusate Sodium [Colace -] 300 mg PO HS #30 capsule 09/10/15 Furosemide [Lasix -] 20 mg PO DAILY #30 tablet 09/10/15 Losartan Potassium [Cozaar -] 50 mg PO DAILY #30 tablet 09/10/15 Magnesium Oxide 400 mg PO BID #7 tablet 09/10/15 traZODone HCL [Desyrel -] 100 mg PO HS #30 tablet 09/10/15 Allopurinol [Zyloprim -] 100 mg PO DAILY #7 tablet MDD 1 02/13/17 Esomeprazole Magnesium [Nexium 24Hr] 40 mg PO DAILY 05/08/17 Tizanidine HCl 4 mg PO TID PRN #90 tablet 08/02/17 Gabapentin [Neurontin -] 400 mg PO Q8H #90 capsule 10/01/17 Oxycodone HCl/Acetaminophen [Percocet 10-325 mg Tablet] 1 each PO Q8H PRN #90 tablet MDD 3 10/29/17 Diphenhydramine HCl [Benadryl Capsule -] 25 mg PO BID PRN 11/06/17 clonazePAM [Klonopin -] 0.5 mg PO BID 11/06/17 Family Disease History - Family Disease History Family Disease History: CA: Mother (, cancer), Other: Father ( - does not know why), Brother (pain - arthritis), Sister (four sisters - little contact), Son (one living healthy), Daughter (one living healthy) Physical Exam Vital Signs: Vital Signs Temperature 98.5 F 11/08/17 18:00 Pulse Rate 78 11/08/17 18:44 Respiratory Rate 18 11/08/17 18:44 Blood Pressure 142/60 11/08/17 18:44 O2 Sat by Pulse Oximetry (%) 97 11/08/17 09:00 Constitutional: Yes: No Distress Cardiovascular: Yes: Regular Rate and Rhythm Respiratory: Yes: CTA Bilaterally Gastrointestinal: Yes: WNL, Normal Bowel Sounds Edema: No Peripheral Pulses WNL: Yes Neurological: Yes: Other (awake to voice, following simple commands, able to move all 4 ext) Labs: CBC, BMP 11/08/17 06:58 11/08/17 19:00 Imaging - Results Cat Scan: Report Reviewed MRI: Report Reviewed Problem List - Problems (1) Seizure Code(s): R56.9 - UNSPECIFIED CONVULSIONS (2) Spinal stenosis Code(s): M48.00 - SPINAL STENOSIS, SITE UNSPECIFIED (3) Thrombocytosis Code(s): D47.3 - ESSENTIAL (HEMORRHAGIC) THROMBOCYTHEMIA (4) Leukocytosis Code(s): D72.829 - ELEVATED WHITE BLOOD CELL COUNT, UNSPECIFIED Qualifiers: Leukocytosis type: unspecified Qualified Code(s): D72.829 - Elevated white blood cell count, unspecified (5) Hypertension Code(s): I10 - ESSENTIAL (PRIMARY) HYPERTENSION Assessment/Plan Chronic Myeloid Leukemia Leukocytosis and thrombocytosis New onset seizures Cervical spine stenosis/Degenerative disc disease MS Chronic pain -oncology following -neurology and neurosurgery following -plateletpheresis tonight -cont gleevac/hydrea/allopurinol as per onc -trend LDH/uric acid -f/u with neurology re MRI/MRA brain -cont keppra/gabapentin/clonazepam/mirapex -cont amlodipine/losartan -ASA decreased to 81mg -oxycodone for pain management -protonix and heparin for ppx REGINA Nunez Critical Care time: 45 min
--- NOTE | 2017-11-08 23:33 | PN ---
Progress Note, Physician Chief Complaint: resting comfortable, History of Present Illness: events noted thrombocytosis /leukocytosi,and seizures,in icu for procedure platelet phoresis - Current Medication List Current Medications: Active Medications Allopurinol (Zyloprim -) 300 mg PO DAILY [facility] Last Admin: 11/08/17 22:40 Dose: 300 mg Amlodipine Besylate (Norvasc -) 2.5 mg PO DAILY [facility] Last Admin: 11/08/17 09:48 Dose: 2.5 mg Aspirin (Ecotrin -) 81 mg PO DAILY [facility] Last Admin: 11/08/17 09:47 Dose: 81 mg Calcium Gluconate (Calcium Gluconate 10% -) 2,000 mg IVPB ONCE PRN PRN Reason: tingling Clonazepam (Klonopin -) 0.5 mg PO BID [facility] Last Admin: 11/08/17 22:36 Dose: 0.5 mg Docusate Sodium (Colace -) 300 mg PO HS [facility] Last Admin: 11/08/17 22:37 Dose: 300 mg Ferrous Sulfate (Feosol -) 325 mg PO DAILY [facility] Last Admin: 11/08/17 09:48 Dose: 325 mg Furosemide (Lasix -) 20 mg PO DAILY [facility] Last Admin: 11/08/17 09:47 Dose: 20 mg Gabapentin (Neurontin -) 400 mg PO TID [facility] Last Admin: 11/08/17 22:35 Dose: 400 mg Heparin Sodium (Porcine) (Heparin -) 5,000 unit SQ TID [facility] Last Admin: 11/08/17 22:38 Dose: 5,000 unit Hydromorphone HCl (Dilaudid -) 2 mg PO Q4H PRN PRN Reason: PAIN LEVEL 4 - 6 Hydroxyurea (Hydrea -) 2,000 mg PO BID [facility] Last Admin: 11/08/17 23:06 Dose: 2,000 mg Imatinib Mesylate (Gleevec (Restricted To Oncology) -) 400 mg PO DAILY [facility] Last Admin: 11/08/17 15:45 Dose: 400 mg Levetiracetam (Keppra -) 500 mg PO BID [facility] Last Admin: 11/08/17 22:36 Dose: 500 mg Losartan Potassium (Cozaar -) 50 mg PO DAILY [facility] Last Admin: 11/08/17 09:48 Dose: 50 mg Nystatin (Nystop Powder -) 1 applic TP DAILY [facility] Last Admin: 11/08/17 13:05 Dose: 1 applic Ondansetron HCl (Zofran Injection) 4 mg IVPUSH Q8H PRN PRN Reason: NAUSEA Last Admin: 11/06/17 21:41 Dose: 4 mg Oxycodone HCl (Roxicodone -) 10 mg PO TID PRN PRN Reason: PAIN LEVEL 7 - 10 Pantoprazole Sodium (Protonix -) 40 mg PO DAILY [facility] Last Admin: 11/08/17 09:48 Dose: 40 mg Pramipexole Dihydrochloride (Mirapex -) 0.25 mg PO TID [facility] Last Admin: 11/08/17 22:37 Dose: 0.25 mg Senna (Senna -) 1 tab PO DAILY PRN PRN Reason: CONSTIPATION Last Admin: 11/05/17 23:36 Dose: 1 tab - Objective Vital Signs: Vital Signs Temperature 98.5 F 11/08/17 18:00 Pulse Rate 78 11/08/17 18:44 Respiratory Rate 18 11/08/17 18:44 Blood Pressure 142/60 11/08/17 18:44 O2 Sat by Pulse Oximetry (%) 97 11/08/17 09:00 Constitutional: Yes: Calm Eyes: Yes: EOM Intact HENT: Yes: Normocephalic Neck: Yes: Trachea Midline Cardiovascular: Yes: Regular Rate and Rhythm Respiratory: Yes: CTA Bilaterally Gastrointestinal: Yes: Normal Bowel Sounds ...Rectal Exam: Yes: Deferred Genitourinary: Yes: WNL Breast(s): Yes: WNL Musculoskeletal: Yes: Joint Swelling, Muscle Pain, Muscle Weakness Extremities: Yes: Delayed Capillary Refill Edema: No Peripheral Pulses WNL: No Neurological: Yes: Alert Labs: CBC, BMP 11/08/17 06:58 11/08/17 19:00 INR, PTT INR 1.24 (0.82-1.09) H 11/05/17 09:03 Problem List - Problems (1) Hypothyroid Code(s): E03.9 - HYPOTHYROIDISM, UNSPECIFIED (2) Spinal stenosis Code(s): M48.00 - SPINAL STENOSIS, SITE UNSPECIFIED (3) Weakness Code(s): R53.1 - WEAKNESS (4) Chronic pain of multiple joints Code(s): M25.50 - PAIN IN UNSPECIFIED JOINT; G89.29 - OTHER CHRONIC PAIN (5) Chronic use of opiate for therapeutic purpose Code(s): Z79.899 - OTHER LINING PARTS SEWER (CURRENT) DRUG THERAPY Assessment/Plan Current Active Problems Hypothyroid (Acute) Left upper quadrant pain (Acute) Seizure (Acute) Spinal stenosis (Acute) Thrombocytosis (Acute) UTI (urinary tract infection) (Acute) Weakness (Acute) Chronic pain of multiple joints (Chronic) Chronic renal insufficiency, stage III (moderate) (Chronic) Chronic use of opiate for therapeutic purpose (Chronic) Degenerative disc disease (Chronic) Diabetes mellitus with renal manifestations, controlled (Chronic) Leukocytosis (Chronic) Abnormal Lab Results 11/06/17 11/07/17 11/07/17 06:43 06:00 20:25 WBC RBC Hgb Hct MCHC RDW Plt Count Monocytes % (Manual) 1 L D Basophils % Basophils % (Manual) 4.0 H Myelocytes % (Man) 15 H D Nucleated RBC % 1 H Metamyelocytes 4 H von Willebrand Antigen 34 L ABG pCO2 at Pt Temp ABG pO2 at Pt Temp ABG HCO3 ABG O2 Sat (Measured) ABG O2 Content ABG Base Excess Creatinine Erythropoietin 28.2 H Total Bilirubin LD Total Total Protein Albumin HALIMA Screen Positive H HALIMA Speckled Pattern 1:320 H 11/08/17 11/08/17 11/08/17 06:58 06:58 19:00 WBC 65.5 H* RBC 3.34 L Hgb 8.6 L Hct 27.7 L MCHC 31.1 L RDW 16.0 H Plt Count 1451 H Monocytes % (Manual) Basophils % 6.2 H* D Basophils % (Manual) Myelocytes % (Man) Nucleated RBC % Metamyelocytes von Willebrand Antigen ABG pCO2 at Pt Temp ABG pO2 at Pt Temp ABG HCO3 ABG O2 Sat (Measured) ABG O2 Content ABG Base Excess Creatinine 1.1 H 1.1 H Erythropoietin Total Bilirubin 0.1 L D LD Total 354 H Total Protein 6.2 L 6.1 L Albumin 3.0 L 3.0 L HALIMA Screen HALIMA Speckled Pattern 11/08/17 21:25 WBC RBC Hgb Hct MCHC RDW Plt Count Monocytes % (Manual) Basophils % Basophils % (Manual) Myelocytes % (Man) Nucleated RBC % Metamyelocytes von Willebrand Antigen ABG pCO2 at Pt Temp 54.2 H ABG pO2 at Pt Temp 41.9 L* D ABG HCO3 30.2 H ABG O2 Sat (Measured) 75.8 L ABG O2 Content 8.5 L* ABG Base Excess 4.7 H Creatinine Erythropoietin Total Bilirubin LD Total Total Protein Albumin HALIMA Screen HALIMA Speckled Pattern Laboratory Results - last 24 hr 11/06/17 11/07/17 11/07/17 06:43 06:00 20:25 WBC RBC Hgb Hct MCV MCH MCHC RDW Plt Count MPV Total Counted 100 Neutrophils % Neutrophils % (Manual) 61.0 Band Neutrophils % 5.0 Lymphocytes % Lymphocytes % (Manual) 9.0 Monocytes % Monocytes % (Manual) 1 L D Eosinophils % Eosinophils % (Manual) 1.0 Basophils % Basophils % (Manual) 4.0 H Myelocytes % (Man) 15 H D Nucleated RBC % 1 H Metamyelocytes 4 H Differential Comment Platelet Estimate Increased Platelet Comment Few giant plts von Willebrand Antigen 34 L Anticoagulation Therapy Puncture Site ABG pH ABG pCO2 at Pt Temp ABG pO2 at Pt Temp ABG HCO3 ABG O2 Sat (Measured) ABG O2 Content ABG Base Excess Farzad Test O2 Delivery Device Oxygen Flow Rate Vent Mode Vent Rate Mechanical Rate Pressure Support Vent Sodium Potassium Chloride Carbon Dioxide Anion Gap BUN Creatinine Creat Clearance w eGFR POC Glucometer Random Glucose Lactic Acid Uric Acid Calcium Magnesium Erythropoietin 28.2 H Total Bilirubin AST ALT Alkaline Phosphatase LD Total Total Protein Albumin Opiates Screen Methadone Screen Barbiturate Screen Phencyclidine Screen Ur Amphetamines Screen MDMA (Ecstasy) Screen Benzodiazepines Screen Cocaine Screen U Marijuana (THC) Screen HALIMA Screen Positive H HALIMA Homogeneous Pattern TNP HALIMA Nucleolar Pattern TNP HALIMA Spindle Marlin Pattern TNP HALIMA Midbody Pattern TNP HALIMA Centriole Pattern TNP HALIAM Nuclear Dot Pattern TNP HALIMA PCNA Pattern TNP HALIMA Nuclear Membr Pat TNP HALIMA Speckled Pattern 1:320 H HALIMA Centromere Pattern TNP 11/08/17 11/08/17 11/08/17 01:00 06:58 06:58 WBC 65.5 H* RBC 3.34 L Hgb 8.6 L Hct 27.7 L MCV 82.9 MCH 25.8 MCHC 31.1 L RDW 16.0 H Plt Count 1451 H MPV 8.7 Total Counted Neutrophils % 79.6 Neutrophils % (Manual) Band Neutrophils % Lymphocytes % 8.2 Lymphocytes % (Manual) Monocytes % 4.9 Monocytes % (Manual) Eosinophils % 1.1 Eosinophils % (Manual) Basophils % 6.2 H* D Basophils % (Manual) Myelocytes % (Man) Nucleated RBC % 0 Metamyelocytes Differential Comment Platelet Estimate Platelet Comment von Willebrand Antigen Anticoagulation Therapy Puncture Site ABG pH ABG pCO2 at Pt Temp ABG pO2 at Pt Temp ABG HCO3 ABG O2 Sat (Measured) ABG O2 Content ABG Base Excess Farzad Test O2 Delivery Device Oxygen Flow Rate Vent Mode Vent Rate Mechanical Rate Pressure Support Vent Sodium 145 Potassium 3.9 Chloride 107 Carbon Dioxide 30 Anion Gap 8 BUN 13 Creatinine 1.1 H Creat Clearance w eGFR 48.82 POC Glucometer Random Glucose 87 Lactic Acid 0.8 Uric Acid 5.1 Calcium 8.7 Magnesium 2.3 Erythropoietin Total Bilirubin 0.2 AST 18 ALT 13 Alkaline Phosphatase 104 LD Total 354 H Total Protein 6.2 L Albumin 3.0 L Opiates Screen Methadone Screen Barbiturate Screen Phencyclidine Screen Ur Amphetamines Screen MDMA (Ecstasy) Screen Benzodiazepines Screen Cocaine Screen U Marijuana (THC) Screen HALIMA Screen HALIMA Homogeneous Pattern HALIM[facility] Nucleolar Pattern HAL[facility] Spindle Marlin Pattern HALIMA Midbody Pattern HALIM[facility] Centriole Pattern [facility] Nuclear Dot Pattern [facility] PCNA Pattern HALIMA Nuclear Membr Pat HALIMA Speckled Pattern HALIMA Centromere Pattern 11/08/17 11/08/17 11/08/17 06:58 17:05 19:00 WBC RBC Hgb Hct MCV MCH MCHC RDW Plt Count MPV Total Counted Neutrophils % Neutrophils % (Manual) Band Neutrophils % Lymphocytes % Lymphocytes % (Manual) Monocytes % Monocytes % (Manual) Eosinophils % Eosinophils % (Manual) Basophils % Basophils % (Manual) Myelocytes % (Man) Nucleated RBC % Metamyelocytes Differential Comment Platelet Estimate Platelet Comment von Willebrand Antigen Anticoagulation Therapy Puncture Site ABG pH ABG pCO2 at Pt Temp ABG pO2 at Pt Temp ABG HCO3 ABG O2 Sat (Measured) ABG O2 Content ABG Base Excess Farzad Test O2 Delivery Device Oxygen Flow Rate Vent Mode Vent Rate Mechanical Rate Pressure Support Vent Sodium 142 Potassium 4.3 Chloride 104 Carbon Dioxide 30 Anion Gap 8 BUN 14 Creatinine 1.1 H Creat Clearance w eGFR 48.82 POC Glucometer 127 Random Glucose 83 Lactic Acid Uric Acid Calcium 8.6 Magnesium Cancelled Erythropoietin Total Bilirubin 0.1 L D AST 24 ALT 13 Alkaline Phosphatase 104 LD Total Total Protein 6.1 L Albumin 3.0 L Opiates Screen Methadone Screen Barbiturate Screen Phencyclidine Screen Ur Amphetamines Screen MDMA (Ecstasy) Screen Benzodiazepines Screen Cocaine Screen U Marijuana (THC) Screen HALIMA Screen [facility] Homogeneous Pattern [facility] Nucleolar Pattern [facility] Spindle Marlin Pattern HALIMA Midbody Pattern HALIMA Centriole Pattern HALIMA Nuclear Dot Pattern HALIMA PCNA Pattern HALIMA Nuclear Membr Pat HALIMA Speckled Pattern HALIMA Centromere Pattern 11/08/17 11/08/17 21:00 21:25 WBC RBC Hgb Hct MCV MCH MCHC RDW Plt Count MPV Total Counted Neutrophils % Neutrophils % (Manual) Band Neutrophils % Lymphocytes % Lymphocytes % (Manual) Monocytes % Monocytes % (Manual) Eosinophils % Eosinophils % (Manual) Basophils % Basophils % (Manual) Myelocytes % (Man) Nucleated RBC % Metamyelocytes Differential Comment Platelet Estimate Platelet Comment von Willebrand Antigen Anticoagulation Therapy No Result Required. Puncture Site Other ABG pH 7.37 ABG pCO2 at Pt Temp 54.2 H ABG pO2 at Pt Temp 41.9 L* D ABG HCO3 30.2 H ABG O2 Sat (Measured) 75.8 L ABG O2 Content 8.5 L* ABG Base Excess 4.7 H Farzad Test Not applicable O2 Delivery Device Nasal Oxygen Flow Rate 2.5l Vent Mode No Result Required. Vent Rate No Result Required. Mechanical Rate No Result Required. Pressure Support Vent No Result Required. Sodium Potassium Chloride Carbon Dioxide Anion Gap BUN Creatinine Creat Clearance w eGFR POC Glucometer Random Glucose Lactic Acid Uric Acid Calcium Magnesium Erythropoietin Total Bilirubin AST ALT Alkaline Phosphatase LD Total Total Protein Albumin Opiates Screen Positive Methadone Screen Negative Barbiturate Screen Negative Phencyclidine Screen Negative Ur Amphetamines Screen Negative MDMA (Ecstasy) Screen Negative Benzodiazepines Screen Negative Cocaine Screen Negative U Marijuana (THC) Screen Positive HALIMA Screen HAL[facility] Homogeneous Pattern [facility] Nucleolar Pattern [facility] Spindle Marlin Pattern HAL[facility] Midbody Pattern [facility] Centriole Pattern HAL[facility] Nuclear Dot Pattern [facility] PCNA Pattern HALIMA Nuclear Membr Pat HALIMA Speckled Pattern HALIMA Centromere Pattern plan: continue seizure precautions neurology consult appreciated hematology workup in progress
[2017-11-09] MEDS ORDERED: CALCIUM GLUCONATE 10% - 1,000 MG/10 ML VIAL ONE (00:40)
[2017-11-09] MEDS ORDERED: PT OWN MED DRAWER 7, Y5N ONE ×4 (02:02→20:49)
[2017-11-09] MEDS: oxyCODONE HCL 5 MG TABLET PO PRN ×2 (02:04→21:05)
--- NOTE | 2017-11-09 05:13 | PROC ---
Procedure Note Procedure: Shiley placement Central Line Insertion Indication: Other (Pheresis ) Risks and Benefits Explained: Yes Consent on Chart: Yes Central Line: Dialysis Cath, Dual Lumen Anesthesia: 1% Lidocaine Sterile Technique: Yes Ultrasound Guided Assistance: Yes Position: Right Femoral Sterile Dressing Applied: Yes
[2017-11-09 06:22] LABS: HEMATOCRIT 25.3 % (32.4-45.2); HEMOGLOBIN 7.9 GM/dL (10.7-15.3); MCHC 31.4 g/dl (32.0-36.0); MEAN CELL VOLUME 82.8 fl (80-96); MEAN PLT VOLUME 8.3 fl (7.5-11.1); PLATELET COUNT 828 K/MM3 (134-434); RBC 3.05 M/mm3 (3.60-5.2); RDW 16.3 % (11.6-15.6)
[2017-11-09] MEDS: HEPARIN NA (PORCINE) 5,000 UNITS/ML 1ML VIAL SQ SCH ×3 (06:29→21:05)
[2017-11-09] MEDS: GABAPENTIN 400 MG CAPSULE (FP) PO SCH ×3 (06:29→21:06)
[2017-11-09] MEDS: PRAMIPEXOLE DIHYDROCHLORIDE 0.25 MG TABLET PO SCH ×3 (06:29→21:06)
[2017-11-09] MEDS: HYDROmorphone HCL 2 MG TABLET PO PRN (06:40)
[2017-11-09 06:49] LABS: CHLORIDE 105 mmol/L (98-107); POTASSIUM 3.7 mmol/L (3.5-5.1); SODIUM 145 mmol/L (136-145)
[2017-11-09 06:57] LABS: ALBUMIN 2.7 g/dl (3.4-5.0); ALK PHOS 97 U/L (45-117); ANION GAP 7 (8-16); BILIRUBIN,TOTAL 0.3 mg/dL (0.2-1.0); BLOOD UREA NITROGEN 13 mg/dL (7-18); CALCIUM 8.3 mg/dL (8.5-10.1); CO2 33 mmol/L (21-32); CREATININE 0.9 mg/dL (0.55-1.02); GLUCOSE,RANDOM 86 mg/dL (74-106); LDH 315 U/L (84-246); SGOT/AST 26 U/L (15-37); SGPT/ALT 14 U/L (12-78); TOT PROT 5.6 g/dl (6.4-8.2); URIC ACID 4.4 mg/dL (2.6-7.2)
--- NOTE | 2017-11-09 09:22 | PN ---
Progress Note, Physician History of Present Illness: -had recurrent sizures -now in icu -alert - Current Medication List Current Medications: Active Medications Allopurinol (Zyloprim -) 300 mg PO DAILY [facility] Amlodipine Besylate (Norvasc -) 2.5 mg PO DAILY [facility] Last Admin: 11/08/17 09:48 Dose: 2.5 mg Aspirin (Ecotrin -) 81 mg PO DAILY [facility] Last Admin: 11/08/17 09:47 Dose: 81 mg Calcium Gluconate (Calcium Gluconate 10% -) 2,000 mg IVPB ONCE PRN PRN Reason: tingling Clonazepam (Klonopin -) 0.5 mg PO BID [facility] Last Admin: 11/08/17 22:36 Dose: 0.5 mg Docusate Sodium (Colace -) 300 mg PO HS [facility] Last Admin: 11/08/17 22:37 Dose: 300 mg Ferrous Sulfate (Feosol -) 325 mg PO DAILY [facility] Last Admin: 11/08/17 09:48 Dose: 325 mg Furosemide (Lasix -) 20 mg PO DAILY [facility] Last Admin: 11/08/17 09:47 Dose: 20 mg Gabapentin (Neurontin -) 400 mg PO TID [facility] Last Admin: 11/09/17 06:29 Dose: 400 mg Heparin Sodium (Porcine) (Heparin -) 5,000 unit SQ TID [facility] Last Admin: 11/09/17 06:29 Dose: 5,000 unit Hydromorphone HCl (Dilaudid -) 2 mg PO Q4H PRN PRN Reason: PAIN LEVEL 4 - 6 Last Admin: 11/09/17 06:40 Dose: 2 mg Hydroxyurea (Hydrea -) 2,000 mg PO BID [facility] Last Admin: 11/08/17 23:06 Dose: 2,000 mg Imatinib Mesylate (Gleevec (Restricted To Oncology) -) 400 mg PO DAILY [facility] Last Admin: 11/08/17 15:45 Dose: 400 mg Levetiracetam (Keppra -) 500 mg PO BID [facility] Last Admin: 11/08/17 22:36 Dose: 500 mg Losartan Potassium (Cozaar -) 50 mg PO DAILY [facility] Last Admin: 11/08/17 09:48 Dose: 50 mg Nystatin (Nystop Powder -) 1 applic TP DAILY [facility] Last Admin: 11/08/17 13:05 Dose: 1 applic Ondansetron HCl (Zofran Injection) 4 mg IVPUSH Q8H PRN PRN Reason: NAUSEA Last Admin: 11/06/17 21:41 Dose: 4 mg Oxycodone HCl (Roxicodone -) 10 mg PO TID PRN PRN Reason: PAIN LEVEL 7 - 10 Last Admin: 11/09/17 02:04 Dose: 10 mg Pantoprazole Sodium (Protonix -) 40 mg PO DAILY [facility] Last Admin: 11/08/17 09:48 Dose: 40 mg Pramipexole Dihydrochloride (Mirapex -) 0.25 mg PO TID ROSALIE Last Admin: 11/09/17 06:29 Dose: 0.25 mg Senna (Senna -) 1 tab PO DAILY PRN PRN Reason: CONSTIPATION Last Admin: 11/05/17 23:36 Dose: 1 tab - Objective Vital Signs: Vital Signs Temperature 98.8 F 11/09/17 02:00 Pulse Rate 74 11/09/17 08:56 Respiratory Rate 19 11/09/17 08:56 Blood Pressure 132/60 11/09/17 08:56 O2 Sat by Pulse Oximetry (%) 97 11/08/17 21:00 Cardiovascular: Yes: S1, S2 Respiratory: Yes: Regular, CTA Bilaterally Gastrointestinal: Yes: Normal Bowel Sounds, Soft Edema: No Neurological: Yes: Alert, Oriented Labs: CBC, BMP 11/09/17 05:50 11/09/17 05:50 INR, PTT INR 1.24 (0.82-1.09) H 11/05/17 09:03 Problem List - Problems (1) UTI (urinary tract infection) Assessment/Plan: - Urine Culture-pending - Given Vancomycin for ?sepsis - Will treat with Levaquin - Monitor vitals - dc mayer - id consult Code(s): N39.0 - URINARY TRACT INFECTION, SITE NOT SPECIFIED Qualifiers: Urinary tract infection type: acute cystitis Hematuria presence: without hematuria Qualified Code(s): N30.00 - Acute cystitis without hematuria (2) Leukocytosis Assessment/Plan: - Likely secondary hematological etiology r/o Malignancy - Repeat CBC - Appreciate Hematology Consult--await follow up - Continue ABX? - Monitor vitals Code(s): D72.829 - ELEVATED WHITE BLOOD CELL COUNT, UNSPECIFIED Qualifiers: Leukocytosis type: unspecified Qualified Code(s): D72.829 - Elevated white blood cell count, unspecified (3) Anxiety and depression Assessment/Plan: - Continue home meds - FU with psych outpatient Code(s): F41.9 - ANXIETY DISORDER, UNSPECIFIED; F32.9 - MAJOR DEPRESSIVE DISORDER, SINGLE EPISODE, UNSPECIFIED (4) Diabetes Assessment/Plan: -bgm -endo Code(s): E11.9 - TYPE 2 DIABETES MELLITUS WITHOUT COMPLICATIONS Qualifiers: Diabetes mellitus type: type 2 (5) Chronic pain of multiple joints Assessment/Plan: (9) Cervical stenosis of spine/Degenerative disc disease - Continue home meds - FU with pain management outpatient -add dilaudid Code(s): M25.50 - PAIN IN UNSPECIFIED JOINT; G89.29 - OTHER CHRONIC PAIN (6) Multiple sclerosis Assessment/Plan: -home meds Code(s): G35 - MULTIPLE SCLEROSIS (7) Weakness Assessment/Plan: - Likely secondary to MS Flare vs Chronic Pain - Monitor CBC, BMP - Gentle IVF - Monitor vitals - Appreciate PT consult for conditioning Code(s): R53.1 - WEAKNESS (8) Spinal stenosis Assessment/Plan: -NS consult noted -await medical work up Code(s): M48.00 - SPINAL STENOSIS, SITE UNSPECIFIED (9) Seizure Assessment/Plan: CT head no change -Neuro Code(s): R56.9 - UNSPECIFIED CONVULSIONS (10) CML (chronic myelocytic leukemia) Assessment/Plan: -d/w pt -chemo once able Code(s): C92.10 - CHRONIC MYELOID LEUK, BCR/ABL-POSITIVE, NOT ACHIEVE REMIS (11) Thrombocytosis Assessment/Plan: -plasmophoresis Code(s): D47.3 - ESSENTIAL (HEMORRHAGIC) THROMBOCYTHEMIA
[2017-11-09] MEDS: FUROSEMIDE 20 MG TABLET (FP) PO SCH (09:55)
[2017-11-09] MEDS: ASPIRIN COATED 81 MG TABLET.EC PO SCH (09:55)
[2017-11-09] MEDS: clonazePAM 0.5 MG TABLET PO SCH ×2 (09:55→21:06)
[2017-11-09] MEDS: amLODIPine BESYLATE 2.5 MG TABLET (FP) PO SCH (09:55)
[2017-11-09] MEDS: ALLOPURINOL 100 MG TABLET (FP) PO SCH (09:55)
[2017-11-09] MEDS: PANTOPRAZOLE 40 MG TABLET (FP) PO SCH (09:56)
[2017-11-09] MEDS: LOSARTAN POTASSIUM 50 MG TABLET (FP) PO SCH (09:56)
[2017-11-09] MEDS: levETIRAcetam 500 MG TABLET (FP) PO SCH ×2 (09:56→21:06)
[2017-11-09] MEDS: HYDROXYUREA 500 MG CAPSULE PO SCH ×2 (09:57→21:07)
--- NOTE | 2017-11-09 10:15 | EKG ---
Test Reason : Blood Pressure : / mmHG Vent. Rate : 082 BPM Atrial Rate : 082 BPM P-R Int : 122 ms QRS Dur : 082 ms QT Int : 360 ms P-R-T Axes : 071 078 099 degrees QTc Int : 420 ms NORMAL SINUS RHYTHM NONSPECIFIC T WAVE ABNORMALITY ABNORMAL ECG Confirmed by MARGARITA LARKIN MD ([id number]) on 11/09/2017 10:15:01 AM Referred By: Confirmed By:MARGARITA LARKIN MD
--- NOTE | 2017-11-09 10:54 | CONSULT ---
Consult Consult Specialty:: Rheumatology - History of Present Illness History of Present Illness: 72-year-old female with PMH of multiple sclerosis (on Avonex), fibromyalgia, hepatitis C (treatment completed), hypertension, diabetes, lung cancer and osteoarthritis, Surgical history of right total hip replacement, left total knee replacement, partial hysterectomy, right lung lobectomy, cholecystectomy, and hysterectomy. The patient was admitted with a 1 week history of general malaise, diffuse aches and pains and leukocytosis. On admission WBC was 45.3. On August of this year it was 32,000. FACS of peripheral blood was reported with granulocytosis with left shift, rare blasts and positive BCR-ABL gene rearrangement. (CML) CT scan of the lumbar spine was reported with multilevel canal and foraminal stenosis with multilevel nerve root compression and multiple chronic vertebral compression deformities. Laboratory work-up revealed rheumatoid factor 17 and HALIMA 1:320 with speckled pattern. 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 Cardio/Vascular: Yes: HTN Pulmonary: Yes: Asthma, COPD Gastrointestinal: Yes: GERD (using walker at home ) Renal/: Yes: Renal Inusuff ...: No Psych: Yes: Depression Musculoskeletal: Yes: Osteoarthritis, Other (DDD) Rheumatology: Yes: Rheumatoid Arthritis Endocrine: Yes: Diabetes Mellitus Additional Medical History: as in HPI, morbidly obese - Past Surgical History Past Surgical History: Yes: Hysterectomy, Joint Replacement, Cholecystectomy - Alcohol/Substance Use Hx Alcohol Use: No History of Substance Use: reports: None - Smoking History Smoking history: Former smoker Have you smoked in the past 12 months: No Aproximately how many cigarettes per day: 0 If you are a former smoker, when did you quit?: many years ago - Social History Usual Living Arrangement: With Significant Other ADL: Independent History of Recent Travel: No Home Medications - Allergies Allergies/Adverse Reactions: Allergies Allergy/AdvReac Type Severity Reaction Status Date / Time Sulfa (Sulfonamide Allergy Severe Hives Verified 02/08/17 05:10 Antibiotics) - Home Medications Home Medications: Ambulatory Orders Amlodipine Besylate [Norvasc -] 2.5 mg PO DAILY 09/03/15 Ergocalciferol (Vitamin D2) [Drisdol] 50,000 units PO WEEKLY 09/03/15 Ferrous Sulfate [Feosol] 325 mg PO DAILY 09/03/15 Interferon Beta-1A [Avonex] 30 mcg IM WEEKLY 09/03/15 Sennosides [Senna] 8.6 mg PO DAILY PRN 09/03/15 Aspirin Coated [Ecotrin -] 81 mg PO DAILY #30 tablet.ec 09/10/15 Docusate Sodium [Colace -] 300 mg PO HS #30 capsule 09/10/15 Furosemide [Lasix -] 20 mg PO DAILY #30 tablet 09/10/15 Losartan Potassium [Cozaar -] 50 mg PO DAILY #30 tablet 09/10/15 Magnesium Oxide 400 mg PO BID #7 tablet 09/10/15 traZODone HCL [Desyrel -] 100 mg PO HS #30 tablet 09/10/15 Allopurinol [Zyloprim -] 100 mg PO DAILY #7 tablet MDD 1 02/13/17 Esomeprazole Magnesium [Nexium 24Hr] 40 mg PO DAILY 05/08/17 Tizanidine HCl 4 mg PO TID PRN #90 tablet 08/02/17 Gabapentin [Neurontin -] 400 mg PO Q8H #90 capsule 10/01/17 Oxycodone HCl/Acetaminophen [Percocet 10-325 mg Tablet] 1 each PO Q8H PRN #90 tablet MDD 3 10/29/17 Diphenhydramine HCl [Benadryl Capsule -] 25 mg PO BID PRN 11/06/17 clonazePAM [Klonopin -] 0.5 mg PO BID 11/06/17 Family Disease History - Family Disease History Family Disease History: [place]: Mother (, cancer), Other: Father ( - does not know why), Brother (pain - arthritis), Sister (four sisters - little contact), Son (one living healthy), Daughter (one living healthy) Physical Exam Vital Signs: Vital Signs Temperature 98.8 F 11/09/17 02:00 Pulse Rate 74 11/09/17 08:56 Respiratory Rate 19 11/09/17 08:56 Blood Pressure 132/60 11/09/17 08:56 O2 Sat by Pulse Oximetry (%) 97 11/08/17 21:00 Constitutional: Yes: Moderate Distress Eyes: Yes: WNL HENT: Yes: WNL Neck: Yes: WNL Cardiovascular: Yes: WNL Respiratory: Yes: WNL Gastrointestinal: Yes: WNL Musculoskeletal: Yes: Other (Noactive joints. 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 The significant diffuse tenderness in related to fibromyalgia. She does not have inflammatory arthritis. Code(s): M79.7 - FIBROMYALGIA (2) Abnormal antibody titer Assessment/Plan: Rheumatoid factor related to previous history of hepatitis C (treated). Also probable false positive HALIMA. She does not have inflammatory arthritis or other connective tissue disease. Code(s): R76.8 - OTHER SPECIFIED ABNORMAL IMMUNOLOGICAL FINDINGS IN SERUM
[2017-11-09] MEDS: FERROUS SO4 325 MG TABLET (FP) PO SCH (11:59)
--- NOTE | 2017-11-09 12:40 | PN ---
Physical Exam: SUBJECTIVE: Patient awake, A&O x2 (able to self identify and identify she is at this hospital, uncertain of date). States she was scared immediately pre- seizure and is now anxious that someone has stolen her pocketbook despite being told her sister has her belongings. OBJECTIVE: Vital Signs Period Temp Pulse Resp BP Sys/Teague Pulse Ox Last 24 Hr 97.8 F-98.8 F 70-106 16-24 108-154/41-74 97-97 GENERAL: Anxious, intermittently tearful, moves all 4 extremities Neuro: A&O x2, intact DTRs, 4/5 B/L UE, and 3/5 B/L LE strength CV: S1/S2 Respiratory: CLTA B/L Abdomen: soft, no TTP, (+) bowel sounds Laboratory Results - last 24 hr 11/07/17 11/08/17 11/08/17 20:25 17:05 19:00 WBC RBC Hgb Hct MCV MCH MCHC RDW Plt Count MPV Total Counted 100 Neutrophils % (Manual) 61.0 Band Neutrophils % 5.0 Lymphocytes % (Manual) 9.0 Monocytes % (Manual) 1 L D Eosinophils % (Manual) 1.0 Basophils % (Manual) 4.0 H Myelocytes % (Man) 15 H D Nucleated RBC % 1 H Metamyelocytes 4 H Differential Comment Platelet Estimate Increased Platelet Comment Few giant plts ESR Anticoagulation Therapy Puncture Site ABG pH ABG pCO2 at Pt Temp ABG pO2 at Pt Temp ABG HCO3 ABG O2 Sat (Measured) ABG O2 Content ABG Base Excess Farzad Test O2 Delivery Device Oxygen Flow Rate Vent Mode Vent Rate Mechanical Rate Pressure Support Vent Sodium 142 Potassium 4.3 Chloride 104 Carbon Dioxide 30 Anion Gap 8 BUN 14 Creatinine 1.1 H Creat Clearance w eGFR 48.82 POC Glucometer 127 Random Glucose 83 Uric Acid Calcium 8.6 Total Bilirubin 0.1 L D AST 24 ALT 13 Alkaline Phosphatase 104 LD Total Total Protein 6.1 L Albumin 3.0 L Opiates Screen Methadone Screen Barbiturate Screen Phencyclidine Screen Ur Amphetamines Screen MDMA (Ecstasy) Screen Benzodiazepines Screen Cocaine Screen U Marijuana (THC) Screen Blood Type Antibody Screen 11/08/17 11/08/17 11/09/17 21:00 21:25 05:50 WBC RBC Hgb Hct MCV MCH MCHC RDW Plt Count MPV Total Counted Neutrophils % (Manual) Band Neutrophils % Lymphocytes % (Manual) Monocytes % (Manual) Eosinophils % (Manual) Basophils % (Manual) Myelocytes % (Man) Nucleated RBC % Metamyelocytes Differential Comment Platelet Estimate Platelet Comment ESR 26 Anticoagulation Therapy No Result Required. Puncture Site Other ABG pH 7.37 ABG pCO2 at Pt Temp 54.2 H ABG pO2 at Pt Temp 41.9 L* D ABG HCO3 30.2 H ABG O2 Sat (Measured) 75.8 L ABG O2 Content 8.5 L* ABG Base Excess 4.7 H Farzad Test Not applicable O2 Delivery Device Nasal Oxygen Flow Rate 2.5l Vent Mode No Result Required. Vent Rate No Result Required. Mechanical Rate No Result Required. Pressure Support Vent No Result Required. Sodium Potassium Chloride Carbon Dioxide Anion Gap BUN Creatinine Creat Clearance w eGFR POC Glucometer Random Glucose Uric Acid Calcium Total Bilirubin AST ALT Alkaline Phosphatase LD Total Total Protein Albumin Opiates Screen Positive Methadone Screen Negative Barbiturate Screen Negative Phencyclidine Screen Negative Ur Amphetamines Screen Negative MDMA (Ecstasy) Screen Negative Benzodiazepines Screen Negative Cocaine Screen Negative U Marijuana (THC) Screen Positive Blood Type Antibody Screen 11/09/17 11/09/17 11/09/17 05:50 05:50 05:50 WBC 53.0 H* RBC 3.05 L Hgb 7.9 L Hct 25.3 L MCV 82.8 MCH 26.0 MCHC 31.4 L RDW 16.3 H Plt Count 828 H D MPV 8.3 Total Counted Neutrophils % (Manual) Band Neutrophils % Lymphocytes % (Manual) Monocytes % (Manual) Eosinophils % (Manual) Basophils % (Manual) Myelocytes % (Man) Nucleated RBC % Metamyelocytes Differential Comment Platelet Estimate Platelet Comment ESR Anticoagulation Therapy Puncture Site ABG pH ABG pCO2 at Pt Temp ABG pO2 at Pt Temp ABG HCO3 ABG O2 Sat (Measured) ABG O2 Content ABG Base Excess Farzad Test O2 Delivery Device Oxygen Flow Rate Vent Mode Vent Rate Mechanical Rate Pressure Support Vent Sodium 145 Potassium 3.7 Chloride 105 Carbon Dioxide 33 H Anion Gap 7 L BUN 13 Creatinine 0.9 Creat Clearance w eGFR > 60 POC Glucometer Random Glucose 86 Uric Acid 4.4 Calcium 8.3 L Total Bilirubin 0.3 D AST 26 ALT 14 Alkaline Phosphatase 97 LD Total 315 H Total Protein 5.6 L Albumin 2.7 L Opiates Screen Methadone Screen Barbiturate Screen Phencyclidine Screen Ur Amphetamines Screen MDMA (Ecstasy) Screen Benzodiazepines Screen Cocaine Screen U Marijuana (THC) Screen Blood Type O POSITIVE Antibody Screen Negative Active Medications Generic Name Dose Route Start Last Admin Trade Name Freq PRN Reason Stop Dose Admin Allopurinol 300 mg 11/09/17 10:00 11/09/17 09:55 Zyloprim - PO 300 mg DAILY ROSALIE Administration Amlodipine Besylate 2.5 mg 11/05/17 10:00 11/09/17 09:55 Norvasc - PO 2.5 mg DAILY ROSALIE Administration Aspirin 81 mg 11/05/17 10:00 11/09/17 09:55 Ecotrin - PO 81 mg DAILY ROSALIE Administration Calcium Gluconate 2,000 mg 11/08/17 21:16 Calcium Gluconate 10% - IVPB ONCE PRN tingling Clonazepam 0.5 mg 11/06/17 22:00 11/09/17 09:55 Klonopin - PO 0.5 mg BID ROSALIE Administration Docusate Sodium 300 mg 11/05/17 22:00 11/08/17 22:37 Colace - PO 300 mg HS ROSALIE Administration Ferrous Sulfate 325 mg 11/05/17 10:00 11/09/17 11:59 Feosol - PO 325 mg DAILY ROSALIE Administration Furosemide 20 mg 11/05/17 10:00 11/09/17 09:55 Lasix - PO 20 mg DAILY ROSALIE Administration Gabapentin 400 mg 11/05/17 06:00 11/09/17 06:29 Neurontin - PO 400 mg TID ROSALIE Administration Heparin Sodium (Porcine) 5,000 unit 11/05/17 06:00 11/09/17 06:29 Heparin - SQ 5,000 unit TID ROSALIE Administration Hydromorphone HCl 2 mg 11/08/17 11:11 11/09/17 06:40 Dilaudid - PO 2 mg Q4H PRN Administration PAIN LEVEL 4 - 6 Hydroxyurea 2,000 mg 11/08/17 12:15 11/09/17 09:57 Hydrea - PO 2,000 mg BID ROSALIE Administration Imatinib Mesylate 400 mg 11/08/17 15:00 11/08/17 15:45 Gleevec (Restricted To Oncology) - PO 400 mg DAILY ROSALIE Administration Levetiracetam 500 mg 11/08/17 10:00 11/09/17 09:56 Keppra - PO 500 mg BID ROSALIE Administration Losartan Potassium 50 mg 11/05/17 10:00 11/09/17 09:56 Cozaar - PO 50 mg DAILY ROSALIE Administration Nystatin 1 applic 11/08/17 12:00 11/08/17 13:05 Nystop Powder - TP 1 applic DAILY ROSALIE Administration Ondansetron HCl 4 mg 11/06/17 15:46 11/06/17 21:41 Zofran Injection IVPUSH 4 mg Q8H PRN Administration NAUSEA Oxycodone HCl 10 mg 11/08/17 11:10 11/09/17 02:04 Roxicodone - PO 10 mg TID PRN Administration PAIN LEVEL 7 - 10 Pantoprazole Sodium 40 mg 11/05/17 10:00 11/09/17 09:56 Protonix - PO 40 mg DAILY ROSALIE Administration Pramipexole Dihydrochloride 0.25 mg 11/08/17 14:00 11/09/17 06:29 Mirapex - PO 0.25 mg TID ROSALIE Administration Senna 1 tab 11/05/17 01:06 11/05/17 23:36 Senna - PO 1 tab DAILY PRN Administration CONSTIPATION ASSESSMENT/PLAN: Patient is a 72 year old female who presented to the ED on 11/04 with outside report of leukocytosis. Patient noted to have thrombocytosis (1438). 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 Patient started on Gleevec Therapy. Patient had witnessed tonic clonic seizure on 11/08 and transferred to ICU for further management. 1. NEW ONSET SEIZURES - possibly 2/2 to migraine headaches - Witnessed tonic clonic seizure yesterday; generalized seizure 2 days previous - S/p Ativan + Keppra loading - MRI/MRA showed no thrombosis 2/2 to coagulopathy 2/2 to thrombocytopenia - Continue Keppra (500 mg BID), Clonazepam (0.5 mg BID), Pramipexole (0.25 mg BID) - Patient currently at baseline 2. THROMBOCYTOSIS - 2/2 to Hematologic disease - S/p plateletpheresis yesterday (11/08) - Plateletpheresis tomorrow (11/09) 3. CHRONIC MYELOID LEUKEMIA - BCR ABL, 9:22 TRANSLOCATION - Continue current therapy: Hydroxyurea and Gleevec - Daily CBC, LDH, Uric Acid 4. CERVICAL SPINAL STENOSIS - Patient tepid candidate for fusion given hematologic comorbidities 6. H/O HEPATITIS C - S/p Harvoni - RF factor positive PROPHYLAXIS - Heparin SQ TID - Protonix DISPOSITION: Patient to remain in ICU pending repeat plateletpheresis tomorrow (11/10) Visit type - Emergency Visit Emergency Visit: No - New Patient This patient is new to me today: Yes Date on this admission: 11/09/17 - Critical Care Critical Care patient: No
--- NOTE | 2017-11-09 13:14 | PN ---
Teaching Attending Note Name of Resident: Una Perez ATTENDING PHYSICIAN STATEMENT I saw and evaluated the patient. I reviewed the resident's note and discussed the case with the resident. I agree with the resident's findings and plan as documented. SUBJECTIVE: Patient seen and examined in the ICU. Awake and alert, anxious and mildly confused. No further seizure activity. Denies CP or SOB. S/P platelet apheresis yesterday with good response. Intake & Output 11/06/17 11/07/17 11/08/17 11/09/17 23:59 23:59 23:59 23:59 Intake Total 350 1677 990 300 Output Total 1100 300 400 Balance -750 1677 690 -100 Weight 200 lb 194 lb 0.108 oz Last Vital Signs Temp Pulse Resp BP Pulse Ox 98.4 F 76 19 126/62 97 11/09/17 08:56 11/09/17 12:00 11/09/17 12:00 11/09/17 12:00 11/09/17 09:00 Active Medications Allopurinol (Zyloprim -) 300 mg PO DAILY [facility] Last Admin: 11/09/17 09:55 Dose: 300 mg Amlodipine Besylate (Norvasc -) 2.5 mg PO DAILY [facility] Last Admin: 11/09/17 09:55 Dose: 2.5 mg Aspirin (Ecotrin -) 81 mg PO DAILY [facility] Last Admin: 11/09/17 09:55 Dose: 81 mg Calcium Gluconate (Calcium Gluconate 10% -) 2,000 mg IVPB ONCE PRN PRN Reason: tingling Clonazepam (Klonopin -) 0.5 mg PO BID [facility] Last Admin: 11/09/17 09:55 Dose: 0.5 mg Docusate Sodium (Colace -) 300 mg PO HS [facility] Last Admin: 11/08/17 22:37 Dose: 300 mg Ferrous Sulfate (Feosol -) 325 mg PO DAILY [facility] Last Admin: 11/09/17 11:59 Dose: 325 mg Furosemide (Lasix -) 20 mg PO DAILY [facility] Last Admin: 11/09/17 09:55 Dose: 20 mg Gabapentin (Neurontin -) 400 mg PO TID [facility] Last Admin: 11/09/17 06:29 Dose: 400 mg Heparin Sodium (Porcine) (Heparin -) 5,000 unit SQ TID [facility] Last Admin: 11/09/17 06:29 Dose: 5,000 unit Hydromorphone HCl (Dilaudid -) 2 mg PO Q4H PRN PRN Reason: PAIN LEVEL 4 - 6 Last Admin: 11/09/17 06:40 Dose: 2 mg Hydroxyurea (Hydrea -) 2,000 mg PO BID [facility] Last Admin: 11/09/17 09:57 Dose: 2,000 mg Imatinib Mesylate (Gleevec (Restricted To Oncology) -) 400 mg PO DAILY [facility] Last Admin: 11/08/17 15:45 Dose: 400 mg Levetiracetam (Keppra -) 500 mg PO BID [facility] Last Admin: 11/09/17 09:56 Dose: 500 mg Losartan Potassium (Cozaar -) 50 mg PO DAILY [facility] Last Admin: 11/09/17 09:56 Dose: 50 mg Nystatin (Nystop Powder -) 1 applic TP DAILY [facility] Last Admin: 11/08/17 13:05 Dose: 1 applic Ondansetron HCl (Zofran Injection) 4 mg IVPUSH Q8H PRN PRN Reason: NAUSEA Last Admin: 11/06/17 21:41 Dose: 4 mg Oxycodone HCl (Roxicodone -) 10 mg PO TID PRN PRN Reason: PAIN LEVEL 7 - 10 Last Admin: 11/09/17 02:04 Dose: 10 mg Pantoprazole Sodium (Protonix -) 40 mg PO DAILY [facility] Last Admin: 11/09/17 09:56 Dose: 40 mg Pramipexole Dihydrochloride (Mirapex -) 0.25 mg PO TID [facility] Last Admin: 11/09/17 06:29 Dose: 0.25 mg Senna (Senna -) 1 tab PO DAILY PRN PRN Reason: CONSTIPATION Last Admin: 11/05/17 23:36 Dose: 1 tab Constitutional: Yes: Awake and alert, mildly confused, NAD Cardiovascular: Yes: Regular Rate and Rhythm Respiratory: Yes: CTA Bilaterally Gastrointestinal: Yes: WNL, Normal Bowel Sounds Edema: No Peripheral Pulses WNL: Yes Neurological: Yes: Non-focal Labs: Laboratory Results - last 24 hr 11/07/17 11/08/17 11/08/17 20:25 17:05 19:00 WBC RBC Hgb Hct MCV MCH MCHC RDW Plt Count MPV Total Counted 100 Neutrophils % (Manual) 61.0 Band Neutrophils % 5.0 Lymphocytes % (Manual) 9.0 Monocytes % (Manual) 1 L D Eosinophils % (Manual) 1.0 Basophils % (Manual) 4.0 H Myelocytes % (Man) 15 H D Nucleated RBC % 1 H Metamyelocytes 4 H Differential Comment Platelet Estimate Increased Platelet Comment Few giant plts ESR Anticoagulation Therapy Puncture Site ABG pH ABG pCO2 at Pt Temp ABG pO2 at Pt Temp ABG HCO3 ABG O2 Sat (Measured) ABG O2 Content ABG Base Excess Farzad Test O2 Delivery Device Oxygen Flow Rate Vent Mode Vent Rate Mechanical Rate Pressure Support Vent Sodium 142 Potassium 4.3 Chloride 104 Carbon Dioxide 30 Anion Gap 8 BUN 14 Creatinine 1.1 H Creat Clearance w eGFR 48.82 POC Glucometer 127 Random Glucose 83 Uric Acid Calcium 8.6 Total Bilirubin 0.1 L D AST 24 ALT 13 Alkaline Phosphatase 104 LD Total Total Protein 6.1 L Albumin 3.0 L Opiates Screen Methadone Screen Barbiturate Screen Phencyclidine Screen Ur Amphetamines Screen MDMA (Ecstasy) Screen Benzodiazepines Screen Cocaine Screen U Marijuana (THC) Screen Blood Type Antibody Screen 11/08/17 11/08/17 11/09/17 21:00 21:25 05:50 WBC RBC Hgb Hct MCV MCH MCHC RDW Plt Count MPV Total Counted Neutrophils % (Manual) Band Neutrophils % Lymphocytes % (Manual) Monocytes % (Manual) Eosinophils % (Manual) Basophils % (Manual) Myelocytes % (Man) Nucleated RBC % Metamyelocytes Differential Comment Platelet Estimate Platelet Comment ESR 26 Anticoagulation Therapy No Result Required. Puncture Site Other ABG pH 7.37 ABG pCO2 at Pt Temp 54.2 H ABG pO2 at Pt Temp 41.9 L* D ABG HCO3 30.2 H ABG O2 Sat (Measured) 75.8 L ABG O2 Content 8.5 L* ABG Base Excess 4.7 H Farzad Test Not applicable O2 Delivery Device Nasal Oxygen Flow Rate 2.5l Vent Mode No Result Required. Vent Rate No Result Required. Mechanical Rate No Result Required. Pressure Support Vent No Result Required. Sodium Potassium Chloride Carbon Dioxide Anion Gap BUN Creatinine Creat Clearance w eGFR POC Glucometer Random Glucose Uric Acid Calcium Total Bilirubin AST ALT Alkaline Phosphatase LD Total Total Protein Albumin Opiates Screen Positive Methadone Screen Negative Barbiturate Screen Negative Phencyclidine Screen Negative Ur Amphetamines Screen Negative MDMA (Ecstasy) Screen Negative Benzodiazepines Screen Negative Cocaine Screen Negative U Marijuana (THC) Screen Positive Blood Type Antibody Screen 11/09/17 11/09/17 11/09/17 05:50 05:50 05:50 WBC 53.0 H* RBC 3.05 L Hgb 7.9 L Hct 25.3 L MCV 82.8 MCH 26.0 MCHC 31.4 L RDW 16.3 H Plt Count 828 H D MPV 8.3 Total Counted Neutrophils % (Manual) Band Neutrophils % Lymphocytes % (Manual) Monocytes % (Manual) Eosinophils % (Manual) Basophils % (Manual) Myelocytes % (Man) Nucleated RBC % Metamyelocytes Differential Comment Platelet Estimate Platelet Comment ESR Anticoagulation Therapy Puncture Site ABG pH ABG pCO2 at Pt Temp ABG pO2 at Pt Temp ABG HCO3 ABG O2 Sat (Measured) ABG O2 Content ABG Base Excess Farzad Test O2 Delivery Device Oxygen Flow Rate Vent Mode Vent Rate Mechanical Rate Pressure Support Vent Sodium 145 Potassium 3.7 Chloride 105 Carbon Dioxide 33 H Anion Gap 7 L BUN 13 Creatinine 0.9 Creat Clearance w eGFR > 60 POC Glucometer Random Glucose 86 Uric Acid 4.4 Calcium 8.3 L Total Bilirubin 0.3 D AST 26 ALT 14 Alkaline Phosphatase 97 LD Total 315 H Total Protein 5.6 L Albumin 2.7 L Opiates Screen Methadone Screen Barbiturate Screen Phencyclidine Screen Ur Amphetamines Screen MDMA (Ecstasy) Screen Benzodiazepines Screen Cocaine Screen U Marijuana (THC) Screen Blood Type O POSITIVE Antibody Screen Negative Problem List - Problems (1) Seizure Code(s): R56.9 - UNSPECIFIED CONVULSIONS (2) Spinal stenosis Code(s): M48.00 - SPINAL STENOSIS, SITE UNSPECIFIED (3) Thrombocytosis Code(s): D47.3 - ESSENTIAL (HEMORRHAGIC) THROMBOCYTHEMIA (4) Leukocytosis Code(s): D72.829 - ELEVATED WHITE BLOOD CELL COUNT, UNSPECIFIED Qualifiers: Leukocytosis type: unspecified Qualified Code(s): D72.829 - Elevated white blood cell count, unspecified (5) Hypertension Code(s): I10 - ESSENTIAL (PRIMARY) HYPERTENSION Assessment/Plan Chronic Myeloid Leukemia Leukocytosis and thrombocytosis New onset seizures Cervical spine stenosis/Degenerative disc disease MS Chronic pain Apheresis per Heme Gleevac Hydrea Allopurinol Keppra Gabapentin Clonazepam Mirapex ASA 81mg Oxycodone for pain management VTE and GI prophylaxis Dr Major Critical care time spent in reviewing chart, evaluating patient and formulating plan - 36 minutes.
[2017-11-09] MEDS: IMATINIB MESYLATE 100 MG TABLET PO SCH (13:19)
[2017-11-09] MEDS: NYSTATIN POWDER 100,000 UNITS/GM - 15 GM TOPICAL POWDER TP SCH (13:19)
--- NOTE | 2017-11-09 17:09 | PN ---
Progress Note (short form) - Note Progress Note: Patient seen and examined Alert and oriented in name, place c/o diffuse abdominal pain Last Vital Signs Temp Pulse Resp BP Pulse Ox 99 F 80 18 149/63 97 11/09/17 16:00 11/09/17 16:00 11/09/17 16:00 11/09/17 16:00 11/09/17 09:00 Cor: RSR, No murmurs, No gallops Lungs: Clear to P&A Abd: Soft, Normal bowel sounds, No organomegaly, mild diffuse tenderness, no guarding or rigidity Ext:No significant edema Abnormal Lab Results 11/08/17 11/08/17 11/09/17 19:00 21:25 05:50 WBC 53.0 H* RBC 3.05 L Hgb 7.9 L Hct 25.3 L MCHC 31.4 L RDW 16.3 H Plt Count 828 H D ABG pCO2 at Pt Temp 54.2 H ABG pO2 at Pt Temp 41.9 L* D ABG HCO3 30.2 H ABG O2 Sat (Measured) 75.8 L ABG O2 Content 8.5 L* ABG Base Excess 4.7 H Carbon Dioxide Anion Gap Creatinine 1.1 H Calcium Total Bilirubin 0.1 L D LD Total Total Protein 6.1 L Albumin 3.0 L Crossmatch 11/09/17 11/09/17 05:50 05:50 WBC RBC Hgb Hct MCHC RDW Plt Count ABG pCO2 at Pt Temp ABG pO2 at Pt Temp ABG HCO3 ABG O2 Sat (Measured) ABG O2 Content ABG Base Excess Carbon Dioxide 33 H Anion Gap 7 L Creatinine Calcium 8.3 L Total Bilirubin LD Total 315 H Total Protein 5.6 L Albumin 2.7 L Crossmatch See Detail Active Medications Allopurinol (Zyloprim -) 300 mg PO DAILY [facility] Last Admin: 11/09/17 09:55 Dose: 300 mg Amlodipine Besylate (Norvasc -) 2.5 mg PO DAILY [facility] Last Admin: 11/09/17 09:55 Dose: 2.5 mg Aspirin (Ecotrin -) 81 mg PO DAILY [facility] Last Admin: 11/09/17 09:55 Dose: 81 mg Calcium Gluconate (Calcium Gluconate 10% -) 2,000 mg IVPB ONCE PRN PRN Reason: tingling Clonazepam (Klonopin -) 0.5 mg PO BID [facility] Last Admin: 11/09/17 09:55 Dose: 0.5 mg Docusate Sodium (Colace -) 300 mg PO HS [facility] Last Admin: 11/08/17 22:37 Dose: 300 mg Ferrous Sulfate (Feosol -) 325 mg PO DAILY [facility] Last Admin: 11/09/17 11:59 Dose: 325 mg Furosemide (Lasix -) 20 mg PO DAILY [facility] Last Admin: 11/09/17 09:55 Dose: 20 mg Gabapentin (Neurontin -) 400 mg PO TID [facility] Last Admin: 11/09/17 13:22 Dose: 400 mg Heparin Sodium (Porcine) (Heparin -) 5,000 unit SQ TID [facility] Last Admin: 11/09/17 13:22 Dose: 5,000 unit Hydromorphone HCl (Dilaudid -) 2 mg PO Q4H PRN PRN Reason: PAIN LEVEL 4 - 6 Last Admin: 11/09/17 06:40 Dose: 2 mg Hydroxyurea (Hydrea -) 2,000 mg PO BID [facility] Last Admin: 11/09/17 09:57 Dose: 2,000 mg Imatinib Mesylate (Gleevec (Restricted To Oncology) -) 400 mg PO DAILY [facility] Last Admin: 11/09/17 13:19 Dose: 400 mg Levetiracetam (Keppra -) 500 mg PO BID [facility] Last Admin: 11/09/17 09:56 Dose: 500 mg Losartan Potassium (Cozaar -) 50 mg PO DAILY [facility] Last Admin: 11/09/17 09:56 Dose: 50 mg Nystatin (Nystop Powder -) 1 applic TP DAILY [facility] Last Admin: 11/09/17 13:19 Dose: 1 applic Ondansetron HCl (Zofran Injection) 4 mg IVPUSH Q8H PRN PRN Reason: NAUSEA Last Admin: 11/06/17 21:41 Dose: 4 mg Oxycodone HCl (Roxicodone -) 10 mg PO TID PRN PRN Reason: PAIN LEVEL 7 - 10 Last Admin: 11/09/17 02:04 Dose: 10 mg Pantoprazole Sodium (Protonix -) 40 mg PO DAILY [facility] Last Admin: 11/09/17 09:56 Dose: 40 mg Pramipexole Dihydrochloride (Mirapex -) 0.25 mg PO TID [facility] Last Admin: 11/09/17 13:19 Dose: 0.25 mg Senna (Senna -) 1 tab PO DAILY PRN PRN Reason: CONSTIPATION Last Admin: 11/05/17 23:36 Dose: 1 tab A/P 72 y/o patient with thrombocytosis/leukocytosis, new diagnosis of CML , late chronic phase vs accelarated phase, h/o MS and now with new onset seizures ? ischemia from thrombocytosis Discussed in great detail with, sister Bibiana yesterday and consent obtained for plateletpheresis. Received plateletpheresis overnight. On hydrea/allopurinol/IV fluids On gleevec 400mg daily To repeat patletpheresis tomorrow To transfuse 1 unit PRBCs check cultures empirically GI consult for abdominal pain
[2017-11-09] MEDS: DOCUSATE SODIUM 100 MG CAPSULE (FP) PO SCH (21:07)
[2017-11-10] MEDS: oxyCODONE HCL 5 MG TABLET PO PRN (06:01)
[2017-11-10] MEDS: GABAPENTIN 400 MG CAPSULE (FP) PO SCH ×3 (06:02→22:40)
[2017-11-10] MEDS: HEPARIN NA (PORCINE) 5,000 UNITS/ML 1ML VIAL SQ SCH ×3 (06:02→21:25)
[2017-11-10] MEDS: PRAMIPEXOLE DIHYDROCHLORIDE 0.25 MG TABLET PO SCH ×2 (06:02→17:40)
[2017-11-10 06:38] LABS: BASO % 4.2 % (0-2.0); EOS % 1.6 % (0-4.5); HEMATOCRIT 28.3 % (32.4-45.2); HEMOGLOBIN 9.1 GM/dL (10.7-15.3); LYMPH % 9.3 % (8-40); MCH 26.9 pg (25.7-33.7); MCHC 32.2 g/dl (32.0-36.0); MEAN CELL VOLUME 83.7 fl (80-96); MEAN PLT VOLUME 8.6 fl (7.5-11.1); MONO % 2.8 % (3.8-10.2); NEUT % 82.1 % (42.8-82.8); PLATELET COUNT 794 K/MM3 (134-434); RBC 3.38 M/mm3 (3.60-5.2); RDW 15.9 % (11.6-15.6)
[2017-11-10 06:48] LABS: WHITE BLOOD COUNT 44.2 K/mm3 (4.0-10.0)
[2017-11-10 06:55] LABS: INR 1.13 (0.82-1.09); PROTHROMBIN TIME (PATIENT) 12.8 SEC (9.7-13.0)
[2017-11-10 07:08] LABS: ALBUMIN 2.8 g/dl (3.4-5.0); ANION GAP 6 (8-16); BLOOD UREA NITROGEN 16 mg/dL (7-18); CALCIUM 8.3 mg/dL (8.5-10.1); CHLORIDE 101 mmol/L (98-107); CO2 33 mmol/L (21-32); GLUCOSE,RANDOM 78 mg/dL (74-106); POTASSIUM 4.1 mmol/L (3.5-5.1); SODIUM 140 mmol/L (136-145)
[2017-11-10 07:12] LABS: ALK PHOS 118 U/L (45-117); BILIRUBIN,TOTAL 0.4 mg/dL (0.2-1.0); LDH 334 U/L (84-246); SGOT/AST 33 U/L (15-37); SGPT/ALT 24 U/L (12-78); TOT PROT 5.8 g/dl (6.4-8.2); URIC ACID 4.2 mg/dL (2.6-7.2)
[2017-11-10] MEDS ORDERED: PT OWN MED DRAWER 7, Y5N ONE (09:32)
--- NOTE | 2017-11-10 09:44 | PN ---
Progress Note, Physician - Current Medication List Current Medications: Active Medications Allopurinol (Zyloprim -) 300 mg PO DAILY [facility] Last Admin: 11/09/17 09:55 Dose: 300 mg Amlodipine Besylate (Norvasc -) 2.5 mg PO DAILY [facility] Last Admin: 11/09/17 09:55 Dose: 2.5 mg Aspirin (Ecotrin -) 81 mg PO DAILY [facility] Last Admin: 11/09/17 09:55 Dose: 81 mg Calcium Gluconate (Calcium Gluconate 10% -) 2,000 mg IVPB ONCE PRN PRN Reason: tingling Clonazepam (Klonopin -) 0.5 mg PO BID [facility] Last Admin: 11/09/17 21:06 Dose: 0.5 mg Docusate Sodium (Colace -) 300 mg PO HS [facility] Last Admin: 11/09/17 21:07 Dose: 300 mg Ferrous Sulfate (Feosol -) 325 mg PO DAILY [facility] Last Admin: 11/09/17 11:59 Dose: 325 mg Furosemide (Lasix -) 20 mg PO DAILY [facility] Last Admin: 11/09/17 09:55 Dose: 20 mg Gabapentin (Neurontin -) 400 mg PO TID [facility] Last Admin: 11/10/17 06:02 Dose: 400 mg Heparin Sodium (Porcine) (Heparin -) 5,000 unit SQ TID [facility] Last Admin: 11/10/17 06:02 Dose: 5,000 unit Hydromorphone HCl (Dilaudid -) 2 mg PO Q4H PRN PRN Reason: PAIN LEVEL 4 - 6 Last Admin: 11/09/17 06:40 Dose: 2 mg Hydroxyurea (Hydrea -) 1,500 mg PO BID [facility] Last Admin: 11/09/17 21:07 Dose: 1,500 mg Imatinib Mesylate (Gleevec (Restricted To Oncology) -) 400 mg PO DAILY [facility] Last Admin: 11/09/17 13:19 Dose: 400 mg Levetiracetam (Keppra -) 500 mg PO BID [facility] Last Admin: 11/09/17 21:06 Dose: 500 mg Losartan Potassium (Cozaar -) 50 mg PO DAILY [facility] Last Admin: 11/09/17 09:56 Dose: 50 mg Nystatin (Nystop Powder -) 1 applic TP DAILY [facility] Last Admin: 11/09/17 13:19 Dose: 1 applic Ondansetron HCl (Zofran Injection) 4 mg IVPUSH Q8H PRN PRN Reason: NAUSEA Last Admin: 11/06/17 21:41 Dose: 4 mg Oxycodone HCl (Roxicodone -) 10 mg PO TID PRN PRN Reason: PAIN LEVEL 7 - 10 Last Admin: 11/10/17 06:01 Dose: 10 mg Pantoprazole Sodium (Protonix -) 40 mg PO DAILY [facility] Last Admin: 11/09/17 09:56 Dose: 40 mg Pramipexole Dihydrochloride (Mirapex -) 0.25 mg PO TID [facility] Last Admin: 11/10/17 06:02 Dose: 0.25 mg Senna (Senna -) 1 tab PO DAILY PRN PRN Reason: CONSTIPATION Last Admin: 11/05/17 23:36 Dose: 1 tab - Objective Vital Signs: Vital Signs Temperature 99 F 11/10/17 02:00 Pulse Rate 76 11/10/17 08:00 Respiratory Rate 20 11/10/17 08:00 Blood Pressure 126/55 11/10/17 08:00 O2 Sat by Pulse Oximetry (%) 97 11/09/17 21:00 Cardiovascular: Yes: S1, S2 Respiratory: Yes: CTA Bilaterally Gastrointestinal: Yes: Normal Bowel Sounds, Soft Edema: No Labs: CBC, BMP 11/10/17 05:15 11/10/17 05:15 INR, PTT INR 1.13 (0.82-1.09) 11/10/17 05:15 Fibrinogen 422.0 mg/dL (238-498) 11/10/17 05:15 Problem List - Problems (1) UTI (urinary tract infection) Assessment/Plan: - Urine Culture-pending - Given Vancomycin for ?sepsis - Will treat with Levaquin - Monitor vitals - dc mayer - id consult Code(s): N39.0 - URINARY TRACT INFECTION, SITE NOT SPECIFIED Qualifiers: Urinary tract infection type: acute cystitis Hematuria presence: without hematuria Qualified Code(s): N30.00 - Acute cystitis without hematuria (2) Leukocytosis Assessment/Plan: - Likely secondary hematological etiology r/o Malignancy - Repeat CBC - Appreciate Hematology Consult--await follow up - Continue ABX? - Monitor vitals Code(s): D72.829 - ELEVATED WHITE BLOOD CELL COUNT, UNSPECIFIED Qualifiers: Leukocytosis type: unspecified Qualified Code(s): D72.829 - Elevated white blood cell count, unspecified (3) Anxiety and depression Assessment/Plan: - Continue home meds - FU with psych outpatient Code(s): F41.9 - ANXIETY DISORDER, UNSPECIFIED; F32.9 - MAJOR DEPRESSIVE DISORDER, SINGLE EPISODE, UNSPECIFIED (4) Diabetes Assessment/Plan: -bgm -endo Code(s): E11.9 - TYPE 2 DIABETES MELLITUS WITHOUT COMPLICATIONS Qualifiers: Diabetes mellitus type: type 2 (5) Chronic pain of multiple joints Code(s): M25.50 - PAIN IN UNSPECIFIED JOINT; G89.29 - OTHER CHRONIC PAIN (6) Multiple sclerosis Assessment/Plan: -home meds Code(s): G35 - MULTIPLE SCLEROSIS (7) Weakness Assessment/Plan: - Likely secondary to MS Flare vs Chronic Pain - Monitor CBC, BMP - Gentle IVF - Monitor vitals - Appreciate PT consult for conditioning Code(s): R53.1 - WEAKNESS (8) Spinal stenosis Assessment/Plan: -NS consult noted -await medical work up Code(s): M48.00 - SPINAL STENOSIS, SITE UNSPECIFIED (9) Seizure Assessment/Plan: CT head no change -Neuro Code(s): R56.9 - UNSPECIFIED CONVULSIONS (10) CML (chronic myelocytic leukemia) Assessment/Plan: -d/w pt -chemo once able Code(s): C92.10 - CHRONIC MYELOID LEUK, BCR/ABL-POSITIVE, NOT ACHIEVE REMIS (11) Thrombocytosis Assessment/Plan: -platelet pheresis Code(s): D47.3 - ESSENTIAL (HEMORRHAGIC) THROMBOCYTHEMIA
[2017-11-10] MEDS: IMATINIB MESYLATE 100 MG TABLET PO SCH (09:50)
[2017-11-10] MEDS: ALLOPURINOL 100 MG TABLET (FP) PO SCH (09:51)
[2017-11-10] MEDS: HYDROXYUREA 500 MG CAPSULE PO SCH ×2 (09:51→22:42)
[2017-11-10] MEDS: ASPIRIN COATED 81 MG TABLET.EC PO SCH (09:52)
[2017-11-10] MEDS: FUROSEMIDE 20 MG TABLET (FP) PO SCH (09:52)
[2017-11-10] MEDS: LOSARTAN POTASSIUM 50 MG TABLET (FP) PO SCH (09:52)
[2017-11-10] MEDS: FERROUS SO4 325 MG TABLET (FP) PO SCH (09:52)
[2017-11-10] MEDS: PANTOPRAZOLE 40 MG TABLET (FP) PO SCH (09:52)
[2017-11-10] MEDS: levETIRAcetam 500 MG TABLET (FP) PO SCH (09:52)
[2017-11-10] MEDS: NYSTATIN POWDER 100,000 UNITS/GM - 15 GM TOPICAL POWDER TP SCH (09:53)
[2017-11-10] MEDS: clonazePAM 0.5 MG TABLET PO SCH (09:53)
[2017-11-10] MEDS: amLODIPine BESYLATE 2.5 MG TABLET (FP) PO SCH (09:57)
[2017-11-10] MEDS ORDERED: LORazepam 2 MG/ML SDV VIAL ONE (13:22)
[2017-11-10 13:23] LABS: ARTERIAL BLD GAS O2 SATURATION 96.7 % (90-98.9); ARTERIAL BLOOD GAS pH 7.42 (7.35-7.45)
--- NOTE | 2017-11-10 13:32 | PN ---
Progress Note (short form) - Note Progress Note: DR SOTELO Covering for DR BLOOM 72 y/o patient with thrombocytosis/leukocytosis, new diagnosis of CML , late chronic phase vs accelarated phase, h/o MS (?) and now with new onset seizures ? ischemia from thrombocytosis vs sinus thrombosis; s/p plateletpheresis overnight. On hydrea/allopurinol/IV fluids gleevec 400mg daily; empiric keppra was started by neuro this afternoon, apx 130PM noted to be poorly responsive, left facial , blank stare --no convulsive activity noted, more awake after ATIVAN 2mg , answering questions AP : acute change in MS , being KEARNEY for myeloproliferative DO , more likely breakthrough Sz , less likely CVA -- inc KEPPRA 1000BID ; ATIVAN PRN repeat HD CT P ; no TPA in this scenario. unclear prior Dx re MS, ? vasculitis could be considered; will consider CTA and /or LP when stable HEM KEARNEY to continue DR SOTELO
[2017-11-10] MEDS ORDERED: levETIRAcetam 500 MG TABLET (FP) PO SCH (13:33)
[2017-11-10] MEDS ORDERED: levETIRAcetam 500 MG/5 ML INJECTION VIAL IVPB ONE (13:44)
[2017-11-10] MEDS ORDERED: PROPOFOL 2,000,000 MCG/200 ML VIAL ONE (13:44)
[2017-11-10 13:46] LABS: ALLENS TEST POSITIVE
--- NOTE | 2017-11-10 14:03 | PROC ---
Intubation - Intubation Reason for Intubation: Airway Protection Time of Intubation: 14:02 Intubation Method: orotracheal Blade used: Mac Tube Size (cm): 7.5 Tube position @ lip (cm): 20 Tube position confirmed by: Direct visualization, CO2 detector, Breath sounds Breath Sounds after Intubation: equal Post Intubation Xray: Yes (ordered)
--- NOTE | 2017-11-10 14:09 | PN ---
Progress Note (short form) - Note Progress Note: SUBJECTIVE: Patient seen and examined in the ICU. On exam this morning, pt acutely non-responsive, does not withdrawal to noxious , blank stare Neuro at bedside, gave Ativan 2mg with some improvement but pt quickly deteriorated again, ? Status epi CTH w/wo stat ordered Keppra increased. Vital Signs Temp 98.8 F 11/10/17 12:00 Pulse 81 11/10/17 14:04 Resp 16 11/10/17 14:04 BP 142/59 11/10/17 12:00 Pulse Ox 99 11/10/17 14:04 Intake & Output 11/09/17 11/10/17 11/10/17 23:59 11:59 23:59 Intake Total 510 300 Output Total 1500 1000 Balance -990 -700 Weight 87.9 kg Intake: Oral 510 300 Output: Urine 1500 1000 Roth 1500 1000 Other: Voiding Method Indwelling Catheter Indwelling Catheter Weight Measurement Method Built in [facility] Active Medications Allopurinol (Zyloprim -) 300 mg PO DAILY [facility] Last Admin: 11/10/17 09:51 Dose: 300 mg Amlodipine Besylate (Norvasc -) 2.5 mg PO DAILY [facility] Last Admin: 11/10/17 09:57 Dose: 2.5 mg Aspirin (Ecotrin -) 81 mg PO DAILY [facility] Last Admin: 11/10/17 09:52 Dose: 81 mg Calcium Gluconate (Calcium Gluconate 10% -) 2,000 mg IVPB ONCE PRN PRN Reason: tingling Clonazepam (Klonopin -) 0.5 mg PO BID [facility] Last Admin: 11/10/17 09:53 Dose: 0.5 mg Docusate Sodium (Colace -) 300 mg PO HS [facility] Last Admin: 11/09/17 21:07 Dose: 300 mg Ferrous Sulfate (Feosol -) 325 mg PO DAILY [facility] Last Admin: 11/10/17 09:52 Dose: 325 mg Furosemide (Lasix -) 20 mg PO DAILY [facility] Last Admin: 11/10/17 09:52 Dose: 20 mg Gabapentin (Neurontin -) 400 mg PO TID [facility] Last Admin: 11/10/17 06:02 Dose: 400 mg Heparin Sodium (Porcine) (Heparin -) 5,000 unit SQ TID [facility] Last Admin: 11/10/17 06:02 Dose: 5,000 unit Hydromorphone HCl (Dilaudid -) 2 mg PO Q4H PRN PRN Reason: PAIN LEVEL 4 - 6 Last Admin: 11/09/17 06:40 Dose: 2 mg Hydroxyurea (Hydrea -) 1,500 mg PO BID [facility] Last Admin: 11/10/17 09:51 Dose: 1,500 mg Imatinib Mesylate (Gleevec (Restricted To Oncology) -) 400 mg PO DAILY [facility] Last Admin: 11/10/17 09:50 Dose: 400 mg Levetiracetam (Keppra -) 1,000 mg PO BID [facility] Losartan Potassium (Cozaar -) 50 mg PO DAILY [facility] Last Admin: 11/10/17 09:52 Dose: 50 mg Nystatin (Nystop Powder -) 1 applic TP DAILY [facility] Last Admin: 11/10/17 09:53 Dose: 1 applic Ondansetron HCl (Zofran Injection) 4 mg IVPUSH Q8H PRN PRN Reason: NAUSEA Last Admin: 11/06/17 21:41 Dose: 4 mg Oxycodone HCl (Roxicodone -) 10 mg PO TID PRN PRN Reason: PAIN LEVEL 7 - 10 Last Admin: 11/10/17 06:01 Dose: 10 mg Pantoprazole Sodium (Protonix -) 40 mg PO DAILY [facility] Last Admin: 11/10/17 09:52 Dose: 40 mg Pramipexole Dihydrochloride (Mirapex -) 0.25 mg PO TID [facility] Last Admin: 11/10/17 06:02 Dose: 0.25 mg Senna (Senna -) 1 tab PO DAILY PRN PRN Reason: CONSTIPATION Last Admin: 11/05/17 23:36 Dose: 1 tab Constitutional: Non responsive Cardiovascular: Yes: Regular Rate and Rhythm Respiratory: Yes: CTA Bilaterally, orally intubated, secure at 20cm Gastrointestinal: Yes: WNL, Normal Bowel Sounds Edema: No Peripheral Pulses WNL: Yes Neurological: poorly responsive, blank stare, does not withdrawal, gag intact PERRL at 4mm Labs: CBCD WBC 44.2 K/mm3 (4.0-10.0) H* 11/10/17 05:15 RBC 3.38 M/mm3 (3.60-5.2) L 11/10/17 05:15 Hgb 9.1 GM/dL (10.7-15.3) L D 11/10/17 05:15 Hct 28.3 % (32.4-45.2) L 11/10/17 05:15 MCV 83.7 fl (80-96) 11/10/17 05:15 MCHC 32.2 g/dl (32.0-36.0) 11/10/17 05:15 RDW 15.9 % (11.6-15.6) H 11/10/17 05:15 Plt Count 794 K/MM3 (134-434) H 11/10/17 05:15 MPV 8.6 fl (7.5-11.1) 11/10/17 05:15 CMP Sodium 140 mmol/L (136-145) 11/10/17 05:15 Potassium 4.1 mmol/L (3.5-5.1) 11/10/17 05:15 Chloride 101 mmol/L (98-107) 11/10/17 05:15 Carbon Dioxide 33 mmol/L (21-32) H 11/10/17 05:15 Anion Gap 6 (8-16) L 11/10/17 05:15 BUN 16 mg/dL (7-18) 11/10/17 05:15 Creatinine 1.0 mg/dL (0.55-1.02) 11/10/17 05:15 Creat Clearance w eGFR 54.50 (>60) 11/10/17 05:15 Calcium 8.3 mg/dL (8.5-10.1) L 11/10/17 05:15 Total Bilirubin 0.4 mg/dL (0.2-1.0) D 11/10/17 05:15 AST 33 U/L (15-37) 11/10/17 05:15 ALT 24 U/L (12-78) 11/10/17 05:15 Alkaline Phosphatase 118 U/L (45-117) H 11/10/17 05:15 Total Protein 5.8 g/dl (6.4-8.2) L 11/10/17 05:15 Albumin 2.8 g/dl (3.4-5.0) L 11/10/17 05:15 ABG Results ABG pH 7.42 (7.35-7.45) 11/10/17 13:15 ABG pCO2 at Pt Temp 50.0 mmHg (35-45) H 11/10/17 13:15 ABG pO2 at Pt Temp 103.0 mmHg (70-100) H D 11/10/17 13:15 ABG HCO3 32.0 meq/L (22-26) H 11/10/17 13:15 ABG O2 Sat (Measured) 96.7 % (90-98.9) 11/10/17 13:15 ABG O2 Content 13.0 % vol (15-22) L 11/10/17 13:15 ABG Base Excess 7.0 meq/l (-2-2) H 11/10/17 13:15 Problem List - Problems (1) Seizure Code(s): R56.9 - UNSPECIFIED CONVULSIONS (2) Spinal stenosis Code(s): M48.00 - SPINAL STENOSIS, SITE UNSPECIFIED (3) Thrombocytosis Code(s): D47.3 - ESSENTIAL (HEMORRHAGIC) THROMBOCYTHEMIA (4) Leukocytosis Code(s): D72.829 - ELEVATED WHITE BLOOD CELL COUNT, UNSPECIFIED Qualifiers: Leukocytosis type: unspecified Qualified Code(s): D72.829 - Elevated white blood cell count, unspecified (5) Hypertension Code(s): I10 - ESSENTIAL (PRIMARY) HYPERTENSION Assessment/Plan Chronic Myeloid Leukemia Leukocytosis and thrombocytosis New onset seizures Cervical spine stenosis/Degenerative disc disease MS Chronic pain CT head with and without STAT vent support as needed, wean once mental status improved Apheresis per Heme Gleevac Hydrea Allopurinol Keppra----Increased as per Neuro Gabapentin Clonazepam Mirapex ASA 81mg Oxycodone for pain management VTE and GI prophylaxis ] [place] [facility] [id number] 35min CCT Critical Care Total Critical Care Time (in minutes): 35 Critical Care Statement: The care of this patient involved high complexity decision making to prevent further life threatening deterioration of the patient 's condition and/or to evaluate & treat vital organ system(s) failure or risk of failure.
[2017-11-10] MEDS ORDERED: PROPOFOL 1,000,000 MCG/100 ML VIAL ONE (17:37)
[2017-11-10] MEDS: PROPOFOL 1,000,000 MCG/100 ML VIAL IVPB SCH (19:00)
[2017-11-10] MEDS ORDERED: ACETAMINOPHEN 325 MG TABLET (FP) PO PRN (21:19)
[2017-11-10] MEDS: levETIRAcetam 500 MG/5 ML INJECTION VIAL IVPB SCH (21:23)
[2017-11-10] MEDS ORDERED: SODIUM CHLORIDE 1,000 ML IV SCH (21:45)
[2017-11-10] MEDS: DOCUSATE SODIUM 100 MG CAPSULE (FP) PO SCH (22:41)
--- NOTE | 2017-11-11 00:46 | PN ---
Progress Note (short form) - Note Progress Note: Acute change in mental status morning of 11/10, non-responsive, with possible seizure activity, requiring intubation for airway protection. Suspicion of acute intracranial event, but nothing acute noted on non-contrast CT-scan. Gradual resolution of mental status, and later extubated. Meds reviewed. Current Medications Generic Name Dose Route Start Last Admin Trade Name Freq PRN Reason Stop Dose Admin Acetaminophen 650 mg 11/10/17 21:19 11/10/17 22:41 Tylenol - PO 650 mg Q4H PRN Administration FEVER Allopurinol 300 mg 11/09/17 10:00 11/10/17 09:51 Zyloprim - PO 300 mg DAILY ROSALIE Administration Amlodipine Besylate 2.5 mg 11/05/17 10:00 11/10/17 09:57 Norvasc - PO 2.5 mg DAILY [facility]IE Administration Aspirin 81 mg 11/05/17 10:00 11/10/17 09:52 Ecotrin - PO 81 mg DAILY [facility] Administration Calcium Gluconate 2,000 mg 11/08/17 21:16 Calcium Gluconate 10% - IVPB ONCE PRN tingling Clonazepam 0.5 mg 11/06/17 22:00 11/10/17 09:53 Klonopin - PO 0.5 mg BID [facility] Administration Docusate Sodium 300 mg 11/05/17 22:00 11/10/17 22:41 Colace - PO 300 mg HS ROSALIE Administration Ferrous Sulfate 325 mg 11/05/17 10:00 11/10/17 09:52 Feosol - PO 325 mg DAILY [facility] Administration Furosemide 20 mg 11/05/17 10:00 11/10/17 09:52 Lasix - PO 20 mg DAILY [facility] Administration Gabapentin 400 mg 11/05/17 06:00 11/10/17 22:40 Neurontin - PO 400 mg TID [facility] Administration Heparin Sodium (Porcine) 5,000 unit 11/05/17 06:00 11/10/17 21:25 Heparin - SQ 5,000 unit TID [facility] Administration Hydromorphone HCl 2 mg 11/08/17 11:11 11/09/17 06:40 Dilaudid - PO 2 mg Q4H PRN Administration PAIN LEVEL 4 - 6 Hydroxyurea 1,500 mg 11/09/17 22:00 11/10/17 22:42 Hydrea - PO 1,500 mg BID ROS[facility] Administration Propofol 1,000,000 mcg in 100 mls @ 2.637 mls/hr 11/10/17 21:15 11/10/17 20: 30 Diprivan - IVPB 0 mcg/kg/min TITR ROSALIE 0 mls/hr Titration Protocol 5 MCG/KG/MIN Sodium Chloride 1,000 mls @ 60 mls/hr 11/10/17 21:45 11/11/17 00:00 Normal Saline - IV 60 mls/hr ASDIR [facility] Administration Imatinib Mesylate 400 mg 11/08/17 15:00 11/10/17 09:50 Gleevec (Restricted To Oncology) - PO 400 mg DAILY [facility] Administration Levetiracetam 1,000 mg 11/10/17 22:00 11/10/17 21:23 Keppra Injection - IVPB 1,000 mg BID [facility] Administration Losartan Potassium 50 mg 11/05/17 10:00 11/10/17 09:52 Cozaar - PO 50 mg DAILY [facility] Administration Nystatin 1 applic 11/08/17 12:00 11/10/17 09:53 Nystop Powder - TP 1 applic DAILY [facility] Administration Ondansetron HCl 4 mg 11/06/17 15:46 11/06/17 21:41 Zofran Injection IVPUSH 4 mg Q8H PRN Administration NAUSEA Oxycodone HCl 10 mg 11/08/17 11:10 11/10/17 06:01 Roxicodone - PO 10 mg TID PRN Administration PAIN LEVEL 7 - 10 Pantoprazole Sodium 40 mg 11/05/17 10:00 11/10/17 09:52 Protonix - PO 40 mg DAILY [facility] Administration Pramipexole Dihydrochloride 0.25 mg 11/08/17 14:00 11/10/17 17:40 Mirapex - PO Not Given TID ROS[facility]IE Senna 1 tab 11/05/17 01:06 11/05/17 23:36 Senna - PO 1 tab DAILY PRN Administration CONSTIPATION On examination Last Vital Signs Temp Pulse Resp BP Pulse Ox 99.7 F H 74 15 125/48 99 11/10/17 20:00 11/11/17 00:00 11/11/17 00:00 11/11/17 00:00 11/10/17 14:04 Extremities: No pallor or icterus. No pedal edema. No palpable lymphadenopathy. CVS: S1, S2, regular, no gallop or murmur. Chest: good air entry bilaterally, clear Abdomen: Non-distended, non-tender, no palpable organomegaly. Neuro: Non-responsive, eyes open, non-purposeful staring, no tonic/clonic seizure activity noted. No apparent focality. CBC, BMP 11/10/17 05:15 11/10/17 05:15 Assessment: Newly diagnosed CML with leukocytosis and thrombocytosis, s/p platelet pheresis for platelet count > 1000K. History of MS, and now with acute MS changes / ? seizure activity. Low index of suspicion that neurological symptoms are attributable to vascular obstruction and ischemia secondary to leukostasis or thrombocytosis and see no role for further pheresis at this time. Counts significantly improved compared to previously. Continue HU and imatinib. Will follow closely.
[2017-11-11] MEDS: PRAMIPEXOLE DIHYDROCHLORIDE 0.25 MG TABLET PO SCH ×3 (00:52→13:57)
[2017-11-11] MEDS: HYDROmorphone HCL 2 MG TABLET PO PRN (03:13)
[2017-11-11] MEDS: HEPARIN NA (PORCINE) 5,000 UNITS/ML 1ML VIAL SQ SCH ×3 (06:10→21:41)
[2017-11-11] MEDS: oxyCODONE HCL 5 MG TABLET PO PRN (06:52)
[2017-11-11 06:53] LABS: HEMATOCRIT 27.2 % (32.4-45.2); HEMOGLOBIN 8.9 GM/dL (10.7-15.3); MCH 27.2 pg (25.7-33.7); MCHC 32.7 g/dl (32.0-36.0); MEAN PLT VOLUME 9.1 fl (7.5-11.1); PLATELET COUNT 815 K/MM3 (134-434); RBC 3.28 M/mm3 (3.60-5.2); RDW 15.7 % (11.6-15.6)
[2017-11-11] MEDS: GABAPENTIN 400 MG CAPSULE (FP) PO SCH ×3 (06:54→21:41)
[2017-11-11 07:10] LABS: WHITE BLOOD COUNT 30.3 K/mm3 (4.0-10.0)
[2017-11-11 07:25] LABS: CHLORIDE 100 mmol/L (98-107); POTASSIUM 4.3 mmol/L (3.5-5.1); SODIUM 140 mmol/L (136-145)
[2017-11-11 07:32] LABS: ALBUMIN 2.7 g/dl (3.4-5.0); ALK PHOS 140 U/L (45-117); ANION GAP 7 (8-16); BILIRUBIN,TOTAL 0.4 mg/dL (0.2-1.0); BLOOD UREA NITROGEN 17 mg/dL (7-18); CO2 33 mmol/L (21-32); CREATININE 1.3 mg/dL (0.55-1.02); GLUCOSE,RANDOM 84 mg/dL (74-106); SGOT/AST 33 U/L (15-37); SGPT/ALT 24 U/L (12-78); TOT PROT 5.8 g/dl (6.4-8.2)
[2017-11-11] MEDS ORDERED: LORazepam 2 MG/ML SDV VIAL ONE (07:42)
[2017-11-11 08:39] LABS: PLATELET ESTIMATE INCREASED; TEAR DROP CELLS 1+
[2017-11-11] MEDS ORDERED: PT OWN MED DRAWER 7, Y5N ONE ×4 (08:44→21:08)
[2017-11-11] MEDS: FUROSEMIDE 20 MG TABLET (FP) PO SCH (10:04)
[2017-11-11] MEDS: levETIRAcetam 500 MG/5 ML INJECTION VIAL IVPB SCH ×2 (10:04→21:15)
[2017-11-11] MEDS: amLODIPine BESYLATE 2.5 MG TABLET (FP) PO SCH (10:04)
[2017-11-11] MEDS: FERROUS SO4 325 MG TABLET (FP) PO SCH (10:04)
[2017-11-11] MEDS: LOSARTAN POTASSIUM 50 MG TABLET (FP) PO SCH (10:04)
[2017-11-11] MEDS: ASPIRIN COATED 81 MG TABLET.EC PO SCH (10:04)
[2017-11-11] MEDS: PANTOPRAZOLE 40 MG TABLET (FP) PO SCH (10:05)
[2017-11-11] MEDS: NYSTATIN POWDER 100,000 UNITS/GM - 15 GM TOPICAL POWDER TP SCH (10:05)
[2017-11-11] MEDS: ALLOPURINOL 100 MG TABLET (FP) PO SCH (10:05)
--- NOTE | 2017-11-11 10:19 | PN ---
Progress Note, Physician - Current Medication List Current Medications: Active Medications Acetaminophen (Tylenol -) 650 mg PO Q4H PRN PRN Reason: FEVER Last Admin: 11/10/17 22:41 Dose: 650 mg Allopurinol (Zyloprim -) 300 mg PO DAILY [facility] Last Admin: 11/11/17 10:05 Dose: 300 mg Amlodipine Besylate (Norvasc -) 2.5 mg PO DAILY [facility] Last Admin: 11/11/17 10:04 Dose: 2.5 mg Aspirin (Ecotrin -) 81 mg PO DAILY [facility] Last Admin: 11/11/17 10:04 Dose: 81 mg Calcium Gluconate (Calcium Gluconate 10% -) 2,000 mg IVPB ONCE PRN PRN Reason: tingling Clonazepam (Klonopin -) 0.5 mg PO BID [facility] Last Admin: 11/10/17 09:53 Dose: 0.5 mg Docusate Sodium (Colace -) 300 mg PO HS [facility] Last Admin: 11/10/17 22:41 Dose: 300 mg Ferrous Sulfate (Feosol -) 325 mg PO DAILY [facility] Last Admin: 11/11/17 10:04 Dose: 325 mg Furosemide (Lasix -) 20 mg PO DAILY [facility] Last Admin: 11/11/17 10:04 Dose: 20 mg Gabapentin (Neurontin -) 400 mg PO TID [facility] Last Admin: 11/11/17 06:54 Dose: 400 mg Heparin Sodium (Porcine) (Heparin -) 5,000 unit SQ TID [facility] Last Admin: 11/11/17 06:10 Dose: 5,000 unit Hydromorphone HCl (Dilaudid -) 2 mg PO Q4H PRN PRN Reason: PAIN LEVEL 4 - 6 Last Admin: 11/11/17 03:13 Dose: 2 mg Hydroxyurea (Hydrea -) 1,500 mg PO BID [facility] Last Admin: 11/10/17 22:42 Dose: 1,500 mg Propofol (Diprivan -) 1,000,000 mcg in 100 mls @ 2.637 mls/hr IVPB TITR [facility]; Protocol Last Titration: 11/10/17 20:30 Dose: 0 mcg/kg/min, 0 mls/hr Sodium Chloride (Normal Saline -) 1,000 mls @ 60 mls/hr IV ASDIR [facility] Last Admin: 11/11/17 00:00 Dose: 60 mls/hr Imatinib Mesylate (Gleevec (Restricted To Oncology) -) 400 mg PO DAILY [facility] Last Admin: 11/10/17 09:50 Dose: 400 mg Levetiracetam (Keppra Injection -) 1,000 mg IVPB BID [facility] Last Admin: 11/11/17 10:04 Dose: 1,000 mg Losartan Potassium (Cozaar -) 50 mg PO DAILY [facility] Last Admin: 11/11/17 10:04 Dose: 50 mg Nystatin (Nystop Powder -) 1 applic TP DAILY [facility] Last Admin: 11/11/17 10:05 Dose: 1 applic Ondansetron HCl (Zofran Injection) 4 mg IVPUSH Q8H PRN PRN Reason: NAUSEA Last Admin: 11/06/17 21:41 Dose: 4 mg Oxycodone HCl (Roxicodone -) 10 mg PO TID PRN PRN Reason: PAIN LEVEL 7 - 10 Last Admin: 11/11/17 06:52 Dose: 10 mg Pantoprazole Sodium (Protonix -) 40 mg PO DAILY [facility] Last Admin: 11/11/17 10:05 Dose: 40 mg Pramipexole Dihydrochloride (Mirapex -) 0.25 mg PO TID [facility] Last Admin: 11/11/17 06:53 Dose: 0.25 mg Senna (Senna -) 1 tab PO DAILY PRN PRN Reason: CONSTIPATION Last Admin: 11/05/17 23:36 Dose: 1 tab - Objective Vital Signs: Vital Signs Temperature 98.2 F 11/11/17 08:00 Pulse Rate 69 11/11/17 08:00 Respiratory Rate 16 11/11/17 08:00 Blood Pressure 122/49 11/11/17 08:00 O2 Sat by Pulse Oximetry (%) 100 11/11/17 08:00 Cardiovascular: Yes: S1, S2 Respiratory: Yes: Regular, CTA Bilaterally Gastrointestinal: Yes: Normal Bowel Sounds, Soft Edema: No Labs: CBC, BMP 11/11/17 05:00 11/11/17 05:00 INR, PTT INR 1.13 (0.82-1.09) 11/10/17 05:15 Fibrinogen 422.0 mg/dL (238-498) 11/10/17 05:15 Problem List - Problems (1) UTI (urinary tract infection) Assessment/Plan: - Urine Culture-pending - Given Vancomycin for ?sepsis - Will treat with Levaquin - Monitor vitals - dc mayer - id consult Code(s): N39.0 - URINARY TRACT INFECTION, SITE NOT SPECIFIED Qualifiers: Urinary tract infection type: acute cystitis Hematuria presence: without hematuria Qualified Code(s): N30.00 - Acute cystitis without hematuria (2) Leukocytosis Assessment/Plan: - Likely secondary hematological etiology r/o Malignancy - Repeat CBC - Appreciate Hematology Consult--await follow up - Continue ABX? - Monitor vitals Code(s): D72.829 - ELEVATED WHITE BLOOD CELL COUNT, UNSPECIFIED Qualifiers: Leukocytosis type: unspecified Qualified Code(s): D72.829 - Elevated white blood cell count, unspecified (3) Anxiety and depression Assessment/Plan: - Continue home meds - FU with psych outpatient Code(s): F41.9 - ANXIETY DISORDER, UNSPECIFIED; F32.9 - MAJOR DEPRESSIVE DISORDER, SINGLE EPISODE, UNSPECIFIED (4) Diabetes Assessment/Plan: -bgm -endo Code(s): E11.9 - TYPE 2 DIABETES MELLITUS WITHOUT COMPLICATIONS Qualifiers: Diabetes mellitus type: type 2 (5) Chronic pain of multiple joints Assessment/Plan: (9) Cervical stenosis of spine/Degenerative disc disease - Continue home meds - FU with pain management outpatient -add dilaudid Code(s): M25.50 - PAIN IN UNSPECIFIED JOINT; G89.29 - OTHER CHRONIC PAIN (6) Multiple sclerosis Assessment/Plan: -home meds Code(s): G35 - MULTIPLE SCLEROSIS (7) Weakness Assessment/Plan: - Likely secondary to MS Flare vs Chronic Pain - Monitor CBC, BMP - Gentle IVF - Monitor vitals - Appreciate PT consult for conditioning Code(s): R53.1 - WEAKNESS (8) Spinal stenosis Assessment/Plan: -NS consult noted -await medical work up Code(s): M48.00 - SPINAL STENOSIS, SITE UNSPECIFIED (9) Seizure Assessment/Plan: CT head no change -Neuro noted-meds adjusted Code(s): R56.9 - UNSPECIFIED CONVULSIONS (10) CML (chronic myelocytic leukemia) Assessment/Plan: -d/w pt -chemo once able Code(s): C92.10 - CHRONIC MYELOID LEUK, BCR/ABL-POSITIVE, NOT ACHIEVE REMIS (11) Thrombocytosis Assessment/Plan: -platelet pheresis Code(s): D47.3 - ESSENTIAL (HEMORRHAGIC) THROMBOCYTHEMIA
[2017-11-11] MEDS: SODIUM CHLORIDE 1,000 ML IV SCH (10:25)
--- NOTE | 2017-11-11 11:25 | PN ---
Progress Note (short form) - Note Progress Note: SUBJECTIVE: Patient seen and examined in the ICU 24H; altered-->unresponsive yesterday--CT head neg increase Keppra improved mental status today wbc coming down nicely Vital Signs Temp 98.3 F 11/11/17 10:00 Pulse 67 11/11/17 10:00 Resp 17 11/11/17 10:00 BP 107/57 11/11/17 10:00 Pulse Ox 100 11/11/17 08:00 Intake & Output 11/10/17 11/10/17 11/11/17 11:59 23:59 11:59 Intake Total 300 560 480 Output Total 1000 1200 500 Balance -700 -640 -20 Weight 87.9 kg 89.4 kg Intake: IV 480 Normal Saline - 1,000 ml 480 @ 60 mls/hr IV ASDIR [facility] Rx#:[id number] IVPB 200 Oral 300 360 Output: Urine 1000 1200 500 Roth 1000 1200 Void 500 Other: Voiding Method Indwelling Catheter Diaper Bedpan # Unmeasured Voids Roth 3 Bowel Movement Yes Weight Measurement Method Built in Bedscale Built in [facility] Active Medications Acetaminophen (Tylenol -) 650 mg PO Q4H PRN PRN Reason: FEVER Last Admin: 11/10/17 22:41 Dose: 650 mg Allopurinol (Zyloprim -) 300 mg PO DAILY [facility] Last Admin: 11/11/17 10:05 Dose: 300 mg Amlodipine Besylate (Norvasc -) 2.5 mg PO DAILY [facility] Last Admin: 11/11/17 10:04 Dose: 2.5 mg Aspirin (Ecotrin -) 81 mg PO DAILY [facility] Last Admin: 11/11/17 10:04 Dose: 81 mg Calcium Gluconate (Calcium Gluconate 10% -) 2,000 mg IVPB ONCE PRN PRN Reason: tingling Clonazepam (Klonopin -) 0.5 mg PO BID [facility] Last Admin: 11/10/17 09:53 Dose: 0.5 mg Docusate Sodium (Colace -) 300 mg PO HS [facility] Last Admin: 11/10/17 22:41 Dose: 300 mg Ferrous Sulfate (Feosol -) 325 mg PO DAILY [facility] Last Admin: 11/11/17 10:04 Dose: 325 mg Gabapentin (Neurontin -) 400 mg PO TID [facility] Last Admin: 11/11/17 06:54 Dose: 400 mg Heparin Sodium (Porcine) (Heparin -) 5,000 unit SQ TID [facility] Last Admin: 11/11/17 06:10 Dose: 5,000 unit Hydroxyurea (Hydrea -) 1,500 mg PO BID [facility] Last Admin: 11/10/17 22:42 Dose: 1,500 mg Propofol (Diprivan -) 1,000,000 mcg in 100 mls @ 2.637 mls/hr IVPB TITR [facility]; Protocol Last Titration: 11/10/17 20:30 Dose: 0 mcg/kg/min, 0 mls/hr Sodium Chloride (Normal Saline -) 1,000 mls @ 75 mls/hr IV ASDIR [facility] Last Admin: 11/11/17 10:25 Dose: 75 mls/hr Imatinib Mesylate (Gleevec (Restricted To Oncology) -) 400 mg PO DAILY [facility] Last Admin: 11/10/17 09:50 Dose: 400 mg Levetiracetam (Keppra Injection -) 1,000 mg IVPB BID [facility] Last Admin: 11/11/17 10:04 Dose: 1,000 mg Losartan Potassium (Cozaar -) 50 mg PO DAILY [facility] Last Admin: 11/11/17 10:04 Dose: 50 mg Nystatin (Nystop Powder -) 1 applic TP DAILY [facility] Last Admin: 11/11/17 10:05 Dose: 1 applic Ondansetron HCl (Zofran Injection) 4 mg IVPUSH Q8H PRN PRN Reason: NAUSEA Last Admin: 11/06/17 21:41 Dose: 4 mg Pantoprazole Sodium (Protonix -) 40 mg PO DAILY [facility] Last Admin: 11/11/17 10:05 Dose: 40 mg Pramipexole Dihydrochloride (Mirapex -) 0.25 mg PO TID [facility] Last Admin: 11/11/17 06:53 Dose: 0.25 mg Senna (Senna -) 1 tab PO DAILY PRN PRN Reason: CONSTIPATION Last Admin: 11/05/17 23:36 Dose: 1 tab Constitutional: awake, follows commands, blunted affect but moving bilaterally Cardiovascular: Yes: Regular Rate and Rhythm Respiratory: Yes: CTA Bilaterally, orally intubated, secure at 20cm Gastrointestinal: Yes: WNL, Normal Bowel Sounds Edema: No Peripheral Pulses WNL: Yes Neurological: awake, follows commands, slow to respond, mildly garbled speech CBCD WBC 30.3 K/mm3 (4.0-10.0) H* D 11/11/17 05:00 RBC 3.28 M/mm3 (3.60-5.2) L 11/11/17 05:00 Hgb 8.9 GM/dL (10.7-15.3) L 11/11/17 05:00 Hct 27.2 % (32.4-45.2) L 11/11/17 05:00 MCV 83.0 fl (80-96) 11/11/17 05:00 MCHC 32.7 g/dl (32.0-36.0) 11/11/17 05:00 RDW 15.7 % (11.6-15.6) H 11/11/17 05:00 Plt Count 815 K/MM3 (134-434) H 11/11/17 05:00 MPV 9.1 fl (7.5-11.1) 11/11/17 05:00 CMP Sodium 140 mmol/L (136-145) 11/11/17 05:00 Potassium 4.3 mmol/L (3.5-5.1) 11/11/17 05:00 Chloride 100 mmol/L (98-107) 11/11/17 05:00 Carbon Dioxide 33 mmol/L (21-32) H 11/11/17 05:00 Anion Gap 7 (8-16) L 11/11/17 05:00 BUN 17 mg/dL (7-18) 11/11/17 05:00 Creatinine 1.3 mg/dL (0.55-1.02) H 11/11/17 05:00 Creat Clearance w eGFR 40.26 (>60) 11/11/17 05:00 Calcium 8.0 mg/dL (8.5-10.1) L 11/11/17 05:00 Total Bilirubin 0.4 mg/dL (0.2-1.0) 11/11/17 05:00 AST 33 U/L (15-37) 11/11/17 05:00 ALT 24 U/L (12-78) 11/11/17 05:00 Alkaline Phosphatase 140 U/L (45-117) H 11/11/17 05:00 Total Protein 5.8 g/dl (6.4-8.2) L 11/11/17 05:00 Albumin 2.7 g/dl (3.4-5.0) L 11/11/17 05:00 Problem List - Problems (1) Seizure Code(s): R56.9 - UNSPECIFIED CONVULSIONS (2) Spinal stenosis Code(s): M48.00 - SPINAL STENOSIS, SITE UNSPECIFIED (3) Thrombocytosis Code(s): D47.3 - ESSENTIAL (HEMORRHAGIC) THROMBOCYTHEMIA (4) Leukocytosis Code(s): D72.829 - ELEVATED WHITE BLOOD CELL COUNT, UNSPECIFIED Qualifiers: Leukocytosis type: unspecified Qualified Code(s): D72.829 - Elevated white blood cell count, unspecified (5) Hypertension Code(s): I10 - ESSENTIAL (PRIMARY) HYPERTENSION Assessment/Plan Chronic Myeloid Leukemia Leukocytosis and thrombocytosis New onset seizures Cervical spine stenosis/Degenerative disc disease MS Chronic pain AED as need, increased yesterday c/f more sz Apheresis per Heme , unlikely to need further Gleevac Hydrea Allopurinol Gabapentin Clonazepam Mirapex ASA 81mg Oxycodone for pain management VTE and GI prophylaxis ] [place] ACNP 1580 35min CCT
[2017-11-11] MEDS: HYDROXYUREA 500 MG CAPSULE PO SCH ×2 (11:39→21:41)
[2017-11-11] MEDS: IMATINIB MESYLATE 100 MG TABLET PO SCH (11:40)
[2017-11-11 12:02] LABS: URIC ACID 3.9 mg/dL (2.6-7.2)
--- NOTE | 2017-11-11 13:29 | PN ---
Progress Note (short form) - Note Progress Note: DR SOTELO Covering for DR BLOOM 72 y/o patient with thrombocytosis/leukocytosis, new diagnosis of CML , late chronic phase vs accelarated phase, h/o MS (?) and now with new onset seizures ? ischemia from thrombocytosis vs sinus thrombosis; s/p plateletpheresis overnight. On hydrea/allopurinol/IV fluids gleevec 400mg daily; empiric keppra was started by neuro on 11/10/17 , apx 130PM noted to be poorly responsive, left facial , blank stare --no convulsive activity noted, CT HD (-)acute pathology intubated 11/10 the extubated later in day close to baseline , though c/o itchiness today Vital Signs Temperature 98.1 F 11/11/17 12:00 Pulse Rate 69 11/11/17 12:00 Respiratory Rate 17 11/11/17 12:00 Blood Pressure 136/69 11/11/17 12:00 O2 Sat by Pulse Oximetry (%) 100 11/11/17 08:00 AP : acute change in MS 11/10/17 , being KEARNEY for myeloproliferative DO/CML more likely breakthrough Sz , less likely CVA --CT HD (- ON KEPPRA 1000BID ; ATIVAN PRN unclear prior Dx re MS, ? vasculitis could be considered; primary neuro to consider CTA and /or LP , check ESR ( Hx of + HALIMA) HEM KEARNEY to continue DR Bloom to follow hereafter DR SOTELO
--- NOTE | 2017-11-11 14:17 | CON.NEP ---
Consult Consult Specialty:: nephrology Reason for Consultation:: possible Tumor lysis syndrome - History of Present Illness Chief Complaint: body is sore History of Present Illness: This is a 72 year old woman with a history of MS, OA, CVA, CKD and spinal stenosis who was admitted for leukocytosis evaluation and is thought to have CML. She developed seizures and required intubation for airway protection. Currently on gleevec, hydrea and allopurinol. Im asked to evaluate for possibility of TLS. She is unable to give a history. Only complains of being sore all over. Received a platelet pharesis for a platelet count of over 1 million. continues to make urine - History Source History Provided By: Medical Record Limitations to Obtaining History: Clinical Condition - Past Medical History NUMBERER AND WIRER: Yes: 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 Cardio/Vascular: Yes: HTN Pulmonary: Yes: Asthma, COPD Gastrointestinal: Yes: GERD (using walker at home ) Renal/: Yes: Renal Inusuff ...: No Psych: Yes: Depression Musculoskeletal: Yes: Osteoarthritis, Other (DDD) Rheumatology: Yes: Rheumatoid Arthritis Endocrine: Yes: Diabetes Mellitus Additional Medical History: as in HPI, morbidly obese - Past Surgical History Past Surgical History: Yes: Hysterectomy, Joint Replacement, Cholecystectomy - Alcohol/Substance Use Hx Alcohol Use: No History of Substance Use: reports: None - Smoking History Smoking history: Former smoker Have you smoked in the past 12 months: No Aproximately how many cigarettes per day: 0 If you are a former smoker, when did you quit?: many years ago - Social History Usual Living Arrangement: With Significant Other ADL: Independent History of Recent Travel: No Home Medications - Allergies Allergies/Adverse Reactions: Allergies Allergy/AdvReac Type Severity Reaction Status Date / Time Sulfa (Sulfonamide Allergy Severe Hives Verified 02/08/17 05:10 Antibiotics) - Home Medications Home Medications: Ambulatory Orders Amlodipine Besylate [Norvasc -] 2.5 mg PO DAILY 09/03/15 Ergocalciferol (Vitamin D2) [Drisdol] 50,000 units PO WEEKLY 09/03/15 Ferrous Sulfate [Feosol] 325 mg PO DAILY 09/03/15 Interferon Beta-1A [Avonex] 30 mcg IM WEEKLY 09/03/15 Sennosides [Senna] 8.6 mg PO DAILY PRN 09/03/15 Aspirin Coated [Ecotrin -] 81 mg PO DAILY #30 tablet.ec 09/10/15 Docusate Sodium [Colace -] 300 mg PO HS #30 capsule 09/10/15 Furosemide [Lasix -] 20 mg PO DAILY #30 tablet 09/10/15 Losartan Potassium [Cozaar -] 50 mg PO DAILY #30 tablet 09/10/15 Magnesium Oxide 400 mg PO BID #7 tablet 09/10/15 traZODone HCL [Desyrel -] 100 mg PO HS #30 tablet 09/10/15 Allopurinol [Zyloprim -] 100 mg PO DAILY #7 tablet MDD 1 02/13/17 Esomeprazole Magnesium [Nexium 24Hr] 40 mg PO DAILY 05/08/17 Tizanidine HCl 4 mg PO TID PRN #90 tablet 08/02/17 Gabapentin [Neurontin -] 400 mg PO Q8H #90 capsule 10/01/17 Oxycodone HCl/Acetaminophen [Percocet 10-325 mg Tablet] 1 each PO Q8H PRN #90 tablet MDD 3 10/29/17 Diphenhydramine HCl [Benadryl Capsule -] 25 mg PO BID PRN 11/06/17 clonazePAM [Klonopin -] 0.5 mg PO BID 11/06/17 Family Disease History - Family Disease History Family Disease History: CA: Mother (, cancer), Other: Father ( - does not know why), Brother (pain - arthritis), Sister (four sisters - little contact), Son (one living healthy), Daughter (one living healthy) Review of Systems Unable to obtain ROS, reason: clinical condition Nephrology Consult - Height Height: 5 ft 2 in - Weight Weight: 197 lb 1.492 oz - BMI Body Mass Index (BMI): 36.0 - Lab Results CBC,BMP: CBC, BMP 11/11/17 05:00 11/11/17 05:00 Anion Gap: Anion Gap Anion Gap 7 (8-16) L 11/11/17 05:00 - Imaging Chest X-ray: Report Reviewed Cat Scan: Report Reviewed (no acute findings) - Physical Examination Vital Signs: Vital Signs Temperature 98.1 F 11/11/17 12:00 Pulse Rate 69 11/11/17 12:00 Respiratory Rate 17 11/11/17 12:00 Blood Pressure 136/69 11/11/17 12:00 O2 Sat by Pulse Oximetry (%) 100 11/11/17 08:00 Constitutional: Yes: Well Nourished, No Distress Eyes: Yes: Conjunctiva Clear HENT: Yes: Atraumatic, Normocephalic, Other (dry oral mucosa) Neck: Yes: Supple, Trachea Midline Cardiovascular: Yes: Regular Rate and Rhythm Respiratory: Yes: Regular, Diminished Gastrointestinal: Yes: Normal Bowel Sounds, Abdomen, Obese Musculoskeletal: Yes: Muscle Pain Edema: No Integumentary: Yes: WNL Neurological: Yes: Alert, Oriented Psychiatric: Yes: Alert, Oriented Assessment/Plan IMPRESSION leukocytosis due to cml juan luis by number since her creat went from 0.9 to 1.3 but etiology can be multifactorial including an element of volume depletion new onset seizures PLAN obtain urine sodium and creatinine uric acid level phosphorus continue allopurinol and fluids renal sono if kidney function not improving MV
--- NOTE | 2017-11-11 15:19 | PN ---
Progress Note (short form) - Note Progress Note: GI FOR DR KATIE MCNEIL: PLEASE SEE COMPLETE DICTATION NO EVIDENCE OF BILIARY OBSTRUCTION NOT CERTAIN RISE IN AP FROM 90 TO 140 EVEN REFLECTS LIVER RELEASE ALL LFT'S ARE WNL BILI IS .4 WOULD CHECK GGTP----IF NORMAL, THEN EVAL FOR A BONE SOURCE OF AP MOST LIKELY TRIVIAL RISE IS DUE TO MEDICATION THAT SHE'S BEEN RECEIVING THANKS, MD LUIS F
--- NOTE | 2017-11-11 16:38 | CONS ---
DATE OF CONSULTATION: 11/11/2017 I was asked by the ICU to evaluate the patient for rising liver enzymes. The patient is a 72-year-old woman who is limited, at the present time, in her ability to give an accurate history. She has a history of MS (multiple sclerosis), osteoarthritis, status post CVA, chronic kidney disease, and spinal stenosis. She was admitted with leukocytosis and thought to have CML. She developed seizures and required intubation for airway protection. Now the patient is extubated. She is currently on Gleevec, Hydrea, and allopurinol. In speaking with her, she says she has had off and on abdominal pain. She has not had any significant GI complaints that have been more focal. She has/had hysterectomy, joint replacement, cholecystectomy in the past, and she has had GI evaluations in the past. I believe we have seen her as an outpatient in the past but I do not have our office records obtainable at this time. The patient also has a history of hypertension, COPD, reflux, depression, rheumatoid arthritis, diabetes mellitus, in addition, morbid obesity and chronic fibromyalgia. She had received platelet pheresis for a platelet count of over a million, and there was question as to whether she had tumor lysis syndrome. The patient has been followed by Neurology and Nephrology while here in the ICU. The patient's current medications in the hospital include Zofran, Tylenol, Cozaar, heparin, Neurontin, Keppra, Zyloprim. It does not appear that the patient has been eating much while in the hospital. On exam, her vital signs currently are stable, she is afebrile. Her blood pressure is 150/50, she is not tachycardic. She is an obese woman who talks with some psychomotor retardation. Her dentition is poor. She is obese. She appears slightly lethargic but not in distress. Her abdomen is morbidly obese. Bowel sounds are heard. There is a healed surgical scar. There is diffuse tenderness to palpation. There are no masses, rebound, or guarding. Lab data is notable in that her SMA-7 is actually, aside from a creatinine of 1.3, essentially unremarkable. Sodium 140, potassium 4.3, chloride 100, bicarbonate 33, BUN 17, calcium 8. It is noted she has a total bilirubin of 0.4, AST 33, ALT 24, but the alkaline phosphatase has gone from 97 to 140. Other than that, it appears there are no reports, there have been no GI studies obtained. The patient is noted to be status post cholecystectomy. She did have an abdominal CAT scan initially on November 04, when she came in to the hospital, and at that time she was having some abdominal pain and the CAT scan noted that there was no left upper quadrant mass, that she was status post cholecystectomy, that she had physiologic post cholecystectomy extrahepatic biliary ductal dilatation without other acute findings. It is my impression that the patient is currently in the ICU with multiple medical issues. She has MS, she has had seizures, she has what appears to be possible new onset CML, she has spinal stenosis, a congenitally narrow spinal canal, with all kinds of spinal disease. She has been followed by neurosurgery and she has significant thrombocytosis as well as leukocytosis, and there is concern of leukemia. She has been followed by neurosurgery, neurology, psychiatry, nephrology, and we are called because her alkaline phosphatase has gone from 97 to 140, with all other normal liver markers. She is status post cholecystectomy and her initial CAT scan showed no evidence of biliary obstruction. Her bilirubin is perfectly normal and I suspect the rise in alkaline phosphatase is most likely medication related. At this time, I do not suspect any evidence of acute biliary obstruction, and therefore, I suspect that the alkaline phosphatase will normalize once she comes off all these medications. In addition, at the present time, it is unclear that the alkaline phosphatase is even from her liver and possibly could be from bone, in a patient with the medical problems that she has, so I would certainly check a GGTP. If that is normal, then she needs to undergo evaluation for an elevation of an alkaline phosphatase from the bone. At the present time, there does not appear to be any acute GI toxicity. We will continue to be available to aide in the management of this patient as needed. Thank you kindly, RADHA KERNS M.D. SANTI/[id number]
[2017-11-11] MEDS: PROPOFOL 1,000,000 MCG/100 ML VIAL IVPB SCH (19:30)
[2017-11-11] MEDS ORDERED: morphine SULFATE 4 MG/ML VIAL ONE (19:40)
[2017-11-11] MEDS: morphine SULFATE 4 MG/ML VIAL IVPUSH PRN (20:00)
[2017-11-11] MEDS: DOCUSATE SODIUM 100 MG CAPSULE (FP) PO SCH (21:40)
[2017-11-12] MEDS: PRAMIPEXOLE DIHYDROCHLORIDE 0.25 MG TABLET PO SCH ×4 (00:09→22:10)
[2017-11-12 02:25] LABS: URINE CREATININE 94.8 mg/dL (20-320)
[2017-11-12] MEDS: morphine SULFATE 4 MG/ML VIAL IVPUSH PRN ×2 (04:16→09:59)
[2017-11-12] MEDS: GABAPENTIN 400 MG CAPSULE (FP) PO SCH ×3 (06:08→21:55)
[2017-11-12 07:00] LABS: URIC ACID 3.9 mg/dL (2.6-7.2)
[2017-11-12 07:29] LABS: HEMATOCRIT 27.2 % (32.4-45.2); HEMOGLOBIN 8.9 GM/dL (10.7-15.3); MCH 27.3 pg (25.7-33.7); MCHC 32.8 g/dl (32.0-36.0); MEAN CELL VOLUME 83.2 fl (80-96); PLATELET COUNT 796 K/MM3 (134-434); RBC 3.26 M/mm3 (3.60-5.2); RDW 15.8 % (11.6-15.6); WHITE BLOOD COUNT 20.6 K/mm3 (4.0-10.0)
[2017-11-12 07:55] LABS: ALBUMIN 2.7 g/dl (3.4-5.0); ALK PHOS 172 U/L (45-117); ANION GAP 6 (8-16); BILIRUBIN,TOTAL 0.4 mg/dL (0.2-1.0); BLOOD UREA NITROGEN 19 mg/dL (7-18); CHLORIDE 106 mmol/L (98-107); CO2 30 mmol/L (21-32); CREATININE 1.2 mg/dL (0.55-1.02); GLUCOSE,RANDOM 87 mg/dL (74-106); POTASSIUM 4.5 mmol/L (3.5-5.1); SGOT/AST 37 U/L (15-37); SGPT/ALT 30 U/L (12-78); SODIUM 142 mmol/L (136-145); TOT PROT 5.7 g/dl (6.4-8.2)
[2017-11-12] MEDS ORDERED: PT OWN MED DRAWER 7, Y5N ONE ×4 (09:20→22:09)
[2017-11-12] MEDS: IMATINIB MESYLATE 100 MG TABLET PO SCH (09:28)
[2017-11-12] MEDS: ASPIRIN COATED 81 MG TABLET.EC PO SCH (09:28)
[2017-11-12] MEDS: FERROUS SO4 325 MG TABLET (FP) PO SCH (09:28)
[2017-11-12] MEDS: LOSARTAN POTASSIUM 50 MG TABLET (FP) PO SCH (09:28)
[2017-11-12] MEDS: NYSTATIN POWDER 100,000 UNITS/GM - 15 GM TOPICAL POWDER TP SCH (09:29)
[2017-11-12] MEDS: PANTOPRAZOLE 40 MG TABLET (FP) PO SCH (09:29)
[2017-11-12] MEDS: ALLOPURINOL 100 MG TABLET (FP) PO SCH (09:29)
[2017-11-12] MEDS: levETIRAcetam 500 MG/5 ML INJECTION VIAL IVPB SCH ×2 (09:29→21:58)
[2017-11-12] MEDS: amLODIPine BESYLATE 2.5 MG TABLET (FP) PO SCH (09:29)
--- NOTE | 2017-11-12 09:51 | PN ---
Physical Exam: SUBJECTIVE: Patient seen and examined by me at bedside. Patient remains awake, alert but confused and complains that she does not feel good. Patient had questionable seizure. Patient during questionable seizure activity was resisting me and her eyes open. In between she was saying "I'm not feeling good. " Gave patient 1mg Ativan, however questionable seizure activity stopped before ativan injection. Otherwise, patient denies fever, chills, nausea, vomiting, abdominal pain, chest pain, palpations, shortness of breath. OBJECTIVE: Vital Signs Period Temp Pulse Resp BP Sys/Teague Pulse Ox Last 24 Hr 98.1 F-98.9 F 67-87 17-22 107-174/50-80 99-100 GENERAL: The patient is awake but confused and lethargic EYES: PERRL ENT: moist mucous membranes. LUNGS: Clear to auscultation bilaterally, no wheezes, no crackles, no accessory muscle use. HEART: Regular rate and rhythm ABDOMEN: Soft, Obese, nontender, nondistended, normoactive bowel sounds. EXTREMITIES: No peripheral edema. NEUROLOGICAL: Unable to assess fully due to patient being uncooperative. Motor strength 4/5 bilaterally in UE and LE. Sensory intact throughout. Laboratory Results - last 24 hr 11/11/17 11/12/17 11/12/17 05:00 00:01 06:15 WBC RBC Hgb Hct MCV MCH MCHC RDW Plt Count MPV Sodium Potassium Chloride Carbon Dioxide Anion Gap BUN Creatinine Creat Clearance w eGFR Random Glucose Uric Acid 3.9 3.9 Calcium Phosphorus 5.0 H Total Bilirubin AST ALT Alkaline Phosphatase LD Total 333 H Total Protein Albumin Ur Random Sodium 85 Urine Creatinine 94.8 11/12/17 11/12/17 06:15 06:15 WBC 20.6 H D RBC 3.26 L Hgb 8.9 L Hct 27.2 L MCV 83.2 MCH 27.3 MCHC 32.8 RDW 15.8 H Plt Count 796 H MPV 9.0 Sodium 142 Potassium 4.5 Chloride 106 Carbon Dioxide 30 Anion Gap 6 L BUN 19 H Creatinine 1.2 H Creat Clearance w eGFR 44.16 Random Glucose 87 Uric Acid Calcium 8.0 L Phosphorus Total Bilirubin 0.4 AST 37 ALT 30 Alkaline Phosphatase 172 H LD Total Total Protein 5.7 L Albumin 2.7 L Ur Random Sodium Urine Creatinine Active Medications Generic Name Dose Route Start Last Admin Trade Name Freq PRN Reason Stop Dose Admin Acetaminophen 650 mg 11/10/17 21:19 11/10/17 22:41 Tylenol - PO 650 mg Q4H PRN Administration FEVER Allopurinol 300 mg 11/09/17 10:00 11/12/17 09:29 Zyloprim - PO 300 mg DAILY ROSALIE Administration Amlodipine Besylate 2.5 mg 11/05/17 10:00 11/12/17 09:29 Norvasc - PO 2.5 mg DAILY ROSALIE Administration Aspirin 81 mg 11/05/17 10:00 11/12/17 09:28 Ecotrin - PO 81 mg DAILY ROSALIE Administration Calcium Gluconate 2,000 mg 11/08/17 21:16 Calcium Gluconate 10% - IVPB ONCE PRN tingling Clonazepam 0.5 mg 11/06/17 22:00 11/10/17 09:53 Klonopin - PO 0.5 mg BID ROSALIE Administration Diphenhydramine HCl 25 mg 11/11/17 13:36 11/12/17 00:31 Benadryl Injection - IVPUSH 25 mg Q6H PRN Administration FOR ITCHING Docusate Sodium 300 mg 11/05/17 22:00 11/11/17 21:40 Colace - PO 300 mg HS ROSALIE Administration Ferrous Sulfate 325 mg 11/05/17 10:00 11/12/17 09:28 Feosol - PO 325 mg DAILY ROSALIE Administration Gabapentin 400 mg 11/05/17 06:00 11/12/17 06:08 Neurontin - PO 400 mg TID ROSALIE Administration Hydroxyurea 500 mg 11/12/17 09:26 Hydrea - PO BID ROSALIE Propofol 1,000,000 mcg in 100 mls @ 2.637 mls/hr 11/10/17 21:15 11/12/17 06: 49 Diprivan - IVPB 0 mcg/kg/min TITR ROSALIE 0 mls/hr Titration Protocol 5 MCG/KG/MIN Sodium Chloride 1,000 mls @ 75 mls/hr 11/11/17 10:25 11/12/17 00:00 Normal Saline - IV 75 mls/hr ASDIR ROSALIE Administration Imatinib Mesylate 400 mg 11/08/17 15:00 11/12/17 09:28 Gleevec (Restricted To Oncology) - PO 400 mg DAILY ROSALIE Administration Levetiracetam 1,000 mg 11/10/17 22:00 11/12/17 09:29 Keppra Injection - IVPB 1,000 mg BID ROSALIE Administration Lorazepam 1 mg 11/11/17 20:12 Ativan Injection - IVPUSH Q6H PRN seizures Losartan Potassium 50 mg 11/05/17 10:00 11/12/17 09:28 Cozaar - PO 50 mg DAILY ROSLAIE Administration Morphine Sulfate 4 mg 11/11/17 20:10 11/12/17 04:16 Morphine Sulfate IVPUSH 4 mg Q4H PRN Administration PAIN LEVEL 7 - 10 Nystatin 1 applic 11/08/17 12:00 11/12/17 09:29 Nystop Powder - TP 1 applic DAILY ROSALIE Administration Ondansetron HCl 4 mg 11/06/17 15:46 11/06/17 21:41 Zofran Injection IVPUSH 4 mg Q8H PRN Administration NAUSEA Pantoprazole Sodium 40 mg 11/05/17 10:00 11/12/17 09:29 Protonix - PO 40 mg DAILY ROSALIE Administration Pramipexole Dihydrochloride 0.25 mg 11/08/17 14:00 11/12/17 06:09 Mirapex - PO 0.25 mg TID ROSALIE Administration Senna 1 tab 11/05/17 01:06 11/05/17 23:36 Senna - PO 1 tab DAILY PRN Administration CONSTIPATION Zinc Acetate/Diphenhydramine 1 applic 11/11/17 22:00 11/12/17 09:28 Benadryl 2% Cream TP 1 applic BID ROSALIE Administration ASSESSMENT/PLAN: Patient is a 72 year old female who was for abnormal labs of leukocytosis. Patient was witnessed to have seizure activity and transferred to ICU for further monitoring or management. Neuro: #New Onset Seizures -Possibly pseudo. R/o vasculitis -CT head and MRI negative -Ordered MRI with contrast today -Continue Keppra 1000mg BID -Ativan PRN -LP ordered, as per heme/onco #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 -Continue Avenox 30mcg weekly on Mondays #Cervical Spinal Stenosis -Continue Gabapentin 400mg po TID #Restless Leg Syndrome -Continue Mirapex 0.25mg po TID Heme/Onc: #Chronic Myeloid Leukemia -Continue Hydroxyurea and Gleevac -Continue Allopurinol #Thrombocytosis/Leukocytosis -Secondary to CML -S/P Plateletpheresis (11/08 and 11/09). No longer requires it, as per heme/ onco. Catheter removed -Continue CBC, LDH, and Uric acid Nephro: #ADELA on CKD -does not meet criteria for tumor lysis syndrome -Baseline 0.9-1.1. Today 1.2 -Continue IVF with NS@75mls/hr -May continue ARB -Continue to follow BMP with phosphorus and Uric acid Cardio: #HTN-controlled -Continue Amlodipine 2.5mg PO daily, Losartan 50mg PO daily -Continue to monitor BP #CAD -Continue ASA 81mg po daily PSYCH: #Anxiety/Depression -Will resume Klonopin 0.5mg once patient is more alert and less lethargic F/E/N -IV NS @75mls/hr -Electrolytes wnl -Sodium controlled diet. NPO after midnight Prophylaxis -Continue Heparin 5000 units sq TID for DVT -Protonix 40mg PO daily for GI Disposition -Full code -LP tomorrow. Discussed Case with Dr. Moriah Finch [id number] Visit type - Emergency Visit Emergency Visit: Yes ED Registration Date: 11/06/17 Care time: The patient presented to the Emergency Department on the above date and was hospitalized for further evaluation of their emergent condition. - New Patient This patient is new to me today: No - Critical Care Critical Care patient: Yes Total Critical Care Time (in minutes): 45 Critical Care Statement: The care of this patient involved high complexity decision making to prevent further life threatening deterioration of the patient 's condition and/or to evaluate & treat vital organ system(s) failure or risk of failure.
[2017-11-12] MEDS: SODIUM CHLORIDE 1,000 ML IV SCH ×3 (10:25→13:15)
[2017-11-12] MEDS: HYDROXYUREA 500 MG CAPSULE PO SCH ×2 (10:59→22:10)
--- NOTE | 2017-11-12 11:06 | PN ---
Progress Note (short form) - Note Progress Note: Renal follow up for suspected ADELA vs. CKD Pt seen and examined in the ICU awake and alert reports diffuse body pain no SOB, chest pain, abd pain, N/V/D +constipation making urine Vital Signs Temperature 98.5 F 11/12/17 10:00 Pulse Rate 73 11/12/17 10:00 Respiratory Rate 20 11/12/17 10:00 Blood Pressure 153/61 11/12/17 10:00 O2 Sat by Pulse Oximetry (%) 100 11/12/17 08:00 Intake & Output 11/09/17 11/10/17 11/11/17 11/12/17 23:59 23:59 23:59 23:59 Intake Total 966 424 9524.5 1000 Output Total 1900 2200 1000 200 Balance -1090 -1340 627.5 800 Weight 88 kg 87.9 kg 89.4 kg 88.4 kg NAD awake and alert RRR CTA soft, obese, NT/ND trace LE edema CBC, BMP 11/12/17 06:15 11/12/17 06:15 Current Medications Acetaminophen (Tylenol -) 650 mg PO Q4H PRN PRN Reason: FEVER Last Admin: 11/10/17 22:41 Dose: 650 mg Allopurinol (Zyloprim -) 300 mg PO DAILY [facility] Last Admin: 11/12/17 09:29 Dose: 300 mg Amlodipine Besylate (Norvasc -) 2.5 mg PO DAILY [facility] Last Admin: 11/12/17 09:29 Dose: 2.5 mg Aspirin (Ecotrin -) 81 mg PO DAILY [facility] Last Admin: 11/12/17 09:28 Dose: 81 mg Calcium Gluconate (Calcium Gluconate 10% -) 2,000 mg IVPB ONCE PRN PRN Reason: tingling Clonazepam (Klonopin -) 0.5 mg PO BID [facility] Last Admin: 11/10/17 09:53 Dose: 0.5 mg Diphenhydramine HCl (Benadryl Injection -) 25 mg IVPUSH Q6H PRN PRN Reason: FOR ITCHING Last Admin: 11/12/17 00:31 Dose: 25 mg Docusate Sodium (Colace -) 300 mg PO HS [facility] Last Admin: 11/11/17 21:40 Dose: 300 mg Ferrous Sulfate (Feosol -) 325 mg PO DAILY [facility] Last Admin: 11/12/17 09:28 Dose: 325 mg Gabapentin (Neurontin -) 400 mg PO TID [facility] Last Admin: 11/12/17 06:08 Dose: 400 mg Hydroxyurea (Hydrea -) 500 mg PO BID [facility] Last Admin: 11/12/17 10:59 Dose: 500 mg Propofol (Diprivan -) 1,000,000 mcg in 100 mls @ 2.637 mls/hr IVPB TITR ROSALIE; Protocol Last Titration: 11/12/17 06:49 Dose: 0 mcg/kg/min, 0 mls/hr Sodium Chloride (Normal Saline -) 1,000 mls @ 75 mls/hr IV ASDIR [facility] Last Admin: 11/12/17 10:25 Dose: Not Given Imatinib Mesylate (Gleevec (Restricted To Oncology) -) 400 mg PO DAILY [facility] Last Admin: 11/12/17 09:28 Dose: 400 mg Levetiracetam (Keppra Injection -) 1,000 mg IVPB BID [facility] Last Admin: 11/12/17 09:29 Dose: 1,000 mg Lorazepam (Ativan Injection -) 1 mg IVPUSH Q6H PRN PRN Reason: seizures Losartan Potassium (Cozaar -) 50 mg PO DAILY [facility] Last Admin: 11/12/17 09:28 Dose: 50 mg Morphine Sulfate (Morphine Sulfate) 4 mg IVPUSH Q4H PRN PRN Reason: PAIN LEVEL 7 - 10 Last Admin: 11/12/17 09:59 Dose: 4 mg Nystatin (Nystop Powder -) 1 applic TP DAILY [facility] Last Admin: 11/12/17 09:29 Dose: 1 applic Ondansetron HCl (Zofran Injection) 4 mg IVPUSH Q8H PRN PRN Reason: NAUSEA Last Admin: 11/06/17 21:41 Dose: 4 mg Pantoprazole Sodium (Protonix -) 40 mg PO DAILY [facility] Last Admin: 11/12/17 09:29 Dose: 40 mg Pramipexole Dihydrochloride (Mirapex -) 0.25 mg PO TID [facility] Last Admin: 11/12/17 06:09 Dose: 0.25 mg Senna (Senna -) 1 tab PO DAILY PRN PRN Reason: CONSTIPATION Last Admin: 11/05/17 23:36 Dose: 1 tab Zinc Acetate/Diphenhydramine (Benadryl 2% Cream) 1 applic TP BID ROSALIE Last Admin: 11/12/17 09:28 Dose: 1 applic 72 year old woman with PMhx of MS, Newly diagnosed CML with thrombocytosis/ leukocytosis with AMS and Cr of 1.3 #ADELA vs. CKD r/o tumor lysis syndrome Cr in the past has ranged from 1-1.3, was 0.9 earlier this admission Urine studies show no proteinuria and FeNa indicative of pre-renal injury pt is non-oliguric by self reporting would continue gentle IVF for now continue ARB pt does not meet criteria for TLS continue to trend PHos, Uric acid, K, Ca continue management per ICU/Neurology/Oncology Roman Santillan DO
[2017-11-12] MEDS: LORazepam 2 MG/ML SDV VIAL IVPUSH PRN (12:45)
[2017-11-12] MEDS: HEPARIN NA (PORCINE) 5,000 UNITS/ML 1ML VIAL SQ SCH ×2 (13:46→21:59)
[2017-11-12] MEDS ORDERED: [UNRECOGNIZED DRUG - OTHER] NR SCH (15:15)
--- NOTE | 2017-11-12 15:19 | PN ---
Teaching Attending Note Name of Resident: Saniya Finch ATTENDING PHYSICIAN STATEMENT I saw and evaluated the patient. I reviewed the resident's note and discussed the case with the resident. I agree with the resident's findings and plan as documented. SUBJECTIVE: Patient seen and examined in the ICU. Awake and alert, mildly confused. Questionable seizure activity noted by staff for which she received Ativan. Denies CP or SOB. Intake & Output 11/09/17 11/10/17 11/11/17 11/12/17 23:59 23:59 23:59 23:59 Intake Total 637 866 2245.5 1250 Output Total 1900 2200 1000 200 Balance -1090 -1340 627.5 1050 Weight 194 lb 0.108 oz 193 lb 12.581 oz 197 lb 1.492 oz 194 lb 14.218 oz Last Vital Signs Temp Pulse Resp BP Pulse Ox 98.4 F 78 20 109/44 100 11/12/17 14:00 11/12/17 14:00 11/12/17 14:00 11/12/17 14:00 11/12/17 08:00 Active Medications Acetaminophen (Tylenol -) 650 mg PO Q4H PRN PRN Reason: FEVER Last Admin: 11/10/17 22:41 Dose: 650 mg Allopurinol (Zyloprim -) 300 mg PO DAILY [facility] Last Admin: 11/12/17 09:29 Dose: 300 mg Amlodipine Besylate (Norvasc -) 2.5 mg PO DAILY [facility] Last Admin: 11/12/17 09:29 Dose: 2.5 mg Aspirin (Ecotrin -) 81 mg PO DAILY [facility] Last Admin: 11/12/17 09:28 Dose: 81 mg Calcium Gluconate (Calcium Gluconate 10% -) 2,000 mg IVPB ONCE PRN PRN Reason: tingling Clonazepam (Klonopin -) 0.5 mg PO BID [facility] Last Admin: 11/10/17 09:53 Dose: 0.5 mg Diphenhydramine HCl (Benadryl Injection -) 25 mg IVPUSH Q6H PRN PRN Reason: FOR ITCHING Last Admin: 11/12/17 14:19 Dose: 25 mg Docusate Sodium (Colace -) 300 mg PO HS [facility] Last Admin: 11/11/17 21:40 Dose: 300 mg Ferrous Sulfate (Feosol -) 325 mg PO DAILY [facility] Last Admin: 11/12/17 09:28 Dose: 325 mg Gabapentin (Neurontin -) 400 mg PO TID [facility] Last Admin: 11/12/17 13:35 Dose: Not Given Heparin Sodium (Porcine) (Heparin -) 5,000 unit SQ TID [facility] Last Admin: 11/12/17 13:46 Dose: 5,000 unit Hydroxyurea (Hydrea -) 500 mg PO BID [facility] Last Admin: 11/12/17 10:59 Dose: 500 mg Propofol (Diprivan -) 1,000,000 mcg in 100 mls @ 2.637 mls/hr IVPB TITR [facility]; Protocol Last Titration: 11/12/17 06:49 Dose: 0 mcg/kg/min, 0 mls/hr Sodium Chloride (Normal Saline -) 1,000 mls @ 75 mls/hr IV ASDIR [facility] Last Admin: 11/12/17 13:15 Dose: 75 mls/hr Imatinib Mesylate (Gleevec (Restricted To Oncology) -) 400 mg PO DAILY [facility] Last Admin: 11/12/17 09:28 Dose: 400 mg Levetiracetam (Keppra Injection -) 1,000 mg IVPB BID [facility] Last Admin: 11/12/17 09:29 Dose: 1,000 mg Lorazepam (Ativan Injection -) 1 mg IVPUSH Q6H PRN PRN Reason: seizures Last Admin: 11/12/17 12:45 Dose: 1 mg Losartan Potassium (Cozaar -) 50 mg PO DAILY [facility] Last Admin: 11/12/17 09:28 Dose: 50 mg Morphine Sulfate (Morphine Sulfate) 4 mg IVPUSH Q4H PRN PRN Reason: PAIN LEVEL 7 - 10 Last Admin: 11/12/17 09:59 Dose: 4 mg Patient's Own Medication: Avenox 30 Mcg 1 each NR Mo [facility] Nystatin (Nystop Powder -) 1 applic TP DAILY [facility] Last Admin: 11/12/17 09:29 Dose: 1 applic Ondansetron HCl (Zofran Injection) 4 mg IVPUSH Q8H PRN PRN Reason: NAUSEA Last Admin: 11/06/17 21:41 Dose: 4 mg Pantoprazole Sodium (Protonix -) 40 mg PO DAILY [facility] Last Admin: 11/12/17 09:29 Dose: 40 mg Pramipexole Dihydrochloride (Mirapex -) 0.25 mg PO TID [facility] Last Admin: 11/12/17 13:35 Dose: Not Given Senna (Senna -) 1 tab PO DAILY PRN PRN Reason: CONSTIPATION Last Admin: 11/05/17 23:36 Dose: 1 tab Zinc Acetate/Diphenhydramine (Benadryl 2% Cream) 1 applic TP BID [facility] Last Admin: 11/12/17 09:28 Dose: 1 applic Constitutional: Yes: Awake and alert, mildly confused, NAD Cardiovascular: Yes: Regular Rate and Rhythm Respiratory: Yes: CTA Bilaterally Gastrointestinal: Yes: WNL, Normal Bowel Sounds Edema: No Peripheral Pulses WNL: Yes Neurological: Yes: Non-focal Labs: Laboratory Results - last 24 hr 11/07/17 11/08/17 11/08/17 20:25 17:05 19:00 WBC RBC Hgb Hct MCV MCH MCHC RDW Plt Count MPV Total Counted 100 Neutrophils % (Manual) 61.0 Band Neutrophils % 5.0 Lymphocytes % (Manual) 9.0 Monocytes % (Manual) 1 L D Eosinophils % (Manual) 1.0 Basophils % (Manual) 4.0 H Myelocytes % (Man) 15 H D Nucleated RBC % 1 H Metamyelocytes 4 H Differential Comment Platelet Estimate Increased Platelet Comment Few giant plts ESR Anticoagulation Therapy Puncture Site ABG pH ABG pCO2 at Pt Temp ABG pO2 at Pt Temp ABG HCO3 ABG O2 Sat (Measured) ABG O2 Content ABG Base Excess Farzad Test O2 Delivery Device Oxygen Flow Rate Vent Mode Vent Rate Mechanical Rate Pressure Support Vent Sodium 142 Potassium 4.3 Chloride 104 Carbon Dioxide 30 Anion Gap 8 BUN 14 Creatinine 1.1 H Creat Clearance w eGFR 48.82 POC Glucometer 127 Random Glucose 83 Uric Acid Calcium 8.6 Total Bilirubin 0.1 L D AST 24 ALT 13 Alkaline Phosphatase 104 LD Total Total Protein 6.1 L Albumin 3.0 L Opiates Screen Methadone Screen Barbiturate Screen Phencyclidine Screen Ur Amphetamines Screen MDMA (Ecstasy) Screen Benzodiazepines Screen Cocaine Screen U Marijuana (THC) Screen Blood Type Antibody Screen 11/08/17 11/08/17 11/09/17 21:00 21:25 05:50 WBC RBC Hgb Hct MCV MCH MCHC RDW Plt Count MPV Total Counted Neutrophils % (Manual) Band Neutrophils % Lymphocytes % (Manual) Monocytes % (Manual) Eosinophils % (Manual) Basophils % (Manual) Myelocytes % (Man) Nucleated RBC % Metamyelocytes Differential Comment Platelet Estimate Platelet Comment ESR 26 Anticoagulation Therapy No Result Required. Puncture Site Other ABG pH 7.37 ABG pCO2 at Pt Temp 54.2 H ABG pO2 at Pt Temp 41.9 L* D ABG HCO3 30.2 H ABG O2 Sat (Measured) 75.8 L ABG O2 Content 8.5 L* ABG Base Excess 4.7 H Farzad Test Not applicable O2 Delivery Device Nasal Oxygen Flow Rate 2.5l Vent Mode No Result Required. Vent Rate No Result Required. Mechanical Rate No Result Required. Pressure Support Vent No Result Required. Sodium Potassium Chloride Carbon Dioxide Anion Gap BUN Creatinine Creat Clearance w eGFR POC Glucometer Random Glucose Uric Acid Calcium Total Bilirubin AST ALT Alkaline Phosphatase LD Total Total Protein Albumin Opiates Screen Positive Methadone Screen Negative Barbiturate Screen Negative Phencyclidine Screen Negative Ur Amphetamines Screen Negative MDMA (Ecstasy) Screen Negative Benzodiazepines Screen Negative Cocaine Screen Negative U Marijuana (THC) Screen Positive Blood Type Antibody Screen 11/09/17 11/09/17 11/09/17 05:50 05:50 05:50 WBC 53.0 H* RBC 3.05 L Hgb 7.9 L Hct 25.3 L MCV 82.8 MCH 26.0 MCHC 31.4 L RDW 16.3 H Plt Count 828 H D MPV 8.3 Total Counted Neutrophils % (Manual) Band Neutrophils % Lymphocytes % (Manual) Monocytes % (Manual) Eosinophils % (Manual) Basophils % (Manual) Myelocytes % (Man) Nucleated RBC % Metamyelocytes Differential Comment Platelet Estimate Platelet Comment ESR Anticoagulation Therapy Puncture Site ABG pH ABG pCO2 at Pt Temp ABG pO2 at Pt Temp ABG HCO3 ABG O2 Sat (Measured) ABG O2 Content ABG Base Excess Farzad Test O2 Delivery Device Oxygen Flow Rate Vent Mode Vent Rate Mechanical Rate Pressure Support Vent Sodium 145 Potassium 3.7 Chloride 105 Carbon Dioxide 33 H Anion Gap 7 L BUN 13 Creatinine 0.9 Creat Clearance w eGFR > 60 POC Glucometer Random Glucose 86 Uric Acid 4.4 Calcium 8.3 L Total Bilirubin 0.3 D AST 26 ALT 14 Alkaline Phosphatase 97 LD Total 315 H Total Protein 5.6 L Albumin 2.7 L Opiates Screen Methadone Screen Barbiturate Screen Phencyclidine Screen Ur Amphetamines Screen MDMA (Ecstasy) Screen Benzodiazepines Screen Cocaine Screen U Marijuana (THC) Screen Blood Type O POSITIVE Antibody Screen Negative Problem List - Problems (1) Seizure Code(s): R56.9 - UNSPECIFIED CONVULSIONS (2) Spinal stenosis Code(s): M48.00 - SPINAL STENOSIS, SITE UNSPECIFIED (3) Thrombocytosis Code(s): D47.3 - ESSENTIAL (HEMORRHAGIC) THROMBOCYTHEMIA (4) Leukocytosis Code(s): D72.829 - ELEVATED WHITE BLOOD CELL COUNT, UNSPECIFIED Qualifiers: Leukocytosis type: unspecified Qualified Code(s): D72.829 - Elevated white blood cell count, unspecified (5) Hypertension Code(s): I10 - ESSENTIAL (PRIMARY) HYPERTENSION Assessment/Plan Chronic Myeloid Leukemia Leukocytosis and thrombocytosis New onset seizures Cervical spine stenosis/Degenerative disc disease MS Chronic pain Will hold apheresis per Heme -> Remove access Gleevac Hydrea Allopurinol Keppra Gabapentin Clonazepam Mirapex ASA 81mg Oxycodone for pain management VTE and GI prophylaxis Neuro follow up Oncology floor monitoring Dr Major Critical care time spent in reviewing chart, evaluating patient and formulating plan - 36 minutes.
[2017-11-12] MEDS: DOCUSATE SODIUM 100 MG CAPSULE (FP) PO SCH (21:55)
[2017-11-12] MEDS: clonazePAM 0.5 MG TABLET PO SCH (21:56)
--- NOTE | 2017-11-12 22:03 | PN ---
Progress Note, Physician Chief Complaint: spoken with radiology percussion instructor and discuss reading for brain MRI with and without ocntrast Head MRI did not show any acute pathology , no acute or old stroke. normal aging changes and flow through carotid is normal as well. - Current Medication List Current Medications: Active Medications Acetaminophen (Tylenol -) 650 mg PO Q4H PRN PRN Reason: FEVER Last Admin: 11/10/17 22:41 Dose: 650 mg Allopurinol (Zyloprim -) 300 mg PO DAILY [facility] Last Admin: 11/12/17 09:29 Dose: 300 mg Amlodipine Besylate (Norvasc -) 2.5 mg PO DAILY [facility] Last Admin: 11/12/17 09:29 Dose: 2.5 mg Aspirin (Ecotrin -) 81 mg PO DAILY [facility] Last Admin: 11/12/17 09:28 Dose: 81 mg Calcium Gluconate (Calcium Gluconate 10% -) 2,000 mg IVPB ONCE PRN PRN Reason: tingling Clonazepam (Klonopin -) 0.5 mg PO BID [facility] Last Admin: 11/10/17 09:53 Dose: 0.5 mg Diphenhydramine HCl (Benadryl Injection -) 25 mg IVPUSH Q6H PRN PRN Reason: FOR ITCHING Last Admin: 11/12/17 14:19 Dose: 25 mg Docusate Sodium (Colace -) 300 mg PO HS [facility] Last Admin: 11/11/17 21:40 Dose: 300 mg Ferrous Sulfate (Feosol -) 325 mg PO DAILY [facility] Last Admin: 11/12/17 09:28 Dose: 325 mg Gabapentin (Neurontin -) 400 mg PO TID [facility] Last Admin: 11/12/17 13:35 Dose: Not Given Heparin Sodium (Porcine) (Heparin -) 5,000 unit SQ TID [facility] Last Admin: 11/12/17 13:46 Dose: 5,000 unit Hydroxyurea (Hydrea -) 500 mg PO BID [facility] Last Admin: 11/12/17 10:59 Dose: 500 mg Propofol (Diprivan -) 1,000,000 mcg in 100 mls @ 2.637 mls/hr IVPB TITR [facility]; Protocol Last Titration: 11/12/17 06:49 Dose: 0 mcg/kg/min, 0 mls/hr Sodium Chloride (Normal Saline -) 1,000 mls @ 75 mls/hr IV ASDIR [facility] Last Admin: 11/12/17 13:15 Dose: 75 mls/hr Imatinib Mesylate (Gleevec (Restricted To Oncology) -) 400 mg PO DAILY [facility] Last Admin: 11/12/17 09:28 Dose: 400 mg Levetiracetam (Keppra Injection -) 1,000 mg IVPB BID [facility] Last Admin: 11/12/17 09:29 Dose: 1,000 mg Lorazepam (Ativan Injection -) 1 mg IVPUSH Q6H PRN PRN Reason: seizures Last Admin: 11/12/17 12:45 Dose: 1 mg Losartan Potassium (Cozaar -) 50 mg PO DAILY [facility] Last Admin: 11/12/17 09:28 Dose: 50 mg Morphine Sulfate (Morphine Sulfate) 4 mg IVPUSH Q4H PRN PRN Reason: PAIN LEVEL 7 - 10 Last Admin: 11/12/17 09:59 Dose: 4 mg Patient's Own Medication: Avenox 30 Mcg 1 each NR Mo [facility] Last Admin: 11/12/17 16:41 Dose: 1 each Nystatin (Nystop Powder -) 1 applic TP DAILY [facility] Last Admin: 11/12/17 09:29 Dose: 1 applic Ondansetron HCl (Zofran Injection) 4 mg IVPUSH Q8H PRN PRN Reason: NAUSEA Last Admin: 11/06/17 21:41 Dose: 4 mg Pantoprazole Sodium (Protonix -) 40 mg PO DAILY [facility] Last Admin: 11/12/17 09:29 Dose: 40 mg Pramipexole Dihydrochloride (Mirapex -) 0.25 mg PO TID [facility] Last Admin: 11/12/17 13:35 Dose: Not Given Senna (Senna -) 1 tab PO DAILY PRN PRN Reason: CONSTIPATION Last Admin: 11/05/17 23:36 Dose: 1 tab Zinc Acetate/Diphenhydramine (Benadryl 2% Cream) 1 applic TP BID [facility] Last Admin: 11/12/17 09:28 Dose: 1 applic - Objective Vital Signs: Vital Signs Temperature 98.3 F 11/12/17 18:00 Pulse Rate 77 11/12/17 19:40 Respiratory Rate 18 11/12/17 19:40 Blood Pressure 121/50 11/12/17 19:40 O2 Sat by Pulse Oximetry (%) 100 06/04/18 19:39 Labs: CBC, BMP 11/12/17 06:15 11/12/17 06:15 INR, PTT INR 1.13 (0.82-1.09) 11/10/17 05:15 Fibrinogen 422.0 mg/dL (238-498) 11/10/17 05:15
--- NOTE | 2017-11-12 23:28 | PN ---
Progress Note (short form) - Note Progress Note: Patient seen and examined Alert and oriented in name, place clinically improved events over weekend noted Last Vital Signs Temp Pulse Resp BP Pulse Ox 98.4 F 84 18 152/72 100 11/13/17 02:00 11/13/17 05:28 11/13/17 05:28 11/13/17 05:28 11/12/17 19:39 Cor: RSR, No murmurs, No gallops Lungs: Clear to P&A Abd: Soft, Normal bowel sounds, No organomegaly, mild diffuse tenderness, no guarding or rigidity Ext:No significant edema Abnormal Lab Results 11/09/17 11/12/17 11/12/17 05:50 06:15 06:15 WBC 20.6 H D RBC 3.26 L Hgb 8.9 L Hct 27.2 L RDW 15.8 H Plt Count 796 H Anion Gap BUN Creatinine Calcium Phosphorus 5.0 H Alkaline Phosphatase Total Protein Albumin Crossmatch See Detail 11/12/17 06:15 WBC RBC Hgb Hct RDW Plt Count Anion Gap 6 L BUN 19 H Creatinine 1.2 H Calcium 8.0 L Phosphorus Alkaline Phosphatase 172 H Total Protein 5.7 L Albumin 2.7 L Crossmatch Lab Results WBC 20.6 K/mm3 (4.0-10.0) H D 11/12/17 06:15 RBC 3.26 M/mm3 (3.60-5.2) L 11/12/17 06:15 Hgb 8.9 GM/dL (10.7-15.3) L 11/12/17 06:15 Hct 27.2 % (32.4-45.2) L 11/12/17 06:15 MCV 83.2 fl (80-96) 11/12/17 06:15 MCHC 32.8 g/dl (32.0-36.0) 11/12/17 06:15 RDW 15.8 % (11.6-15.6) H 11/12/17 06:15 Plt Count 796 K/MM3 (134-434) H 11/12/17 06:15 Sodium 142 mmol/L (136-145) 11/12/17 06:15 Potassium 4.5 mmol/L (3.5-5.1) 11/12/17 06:15 Chloride 106 mmol/L (98-107) 11/12/17 06:15 Carbon Dioxide 30 mmol/L (21-32) 11/12/17 06:15 Anion Gap 6 (8-16) L 11/12/17 06:15 BUN 19 mg/dL (7-18) H 11/12/17 06:15 Creatinine 1.2 mg/dL (0.55-1.02) H 11/12/17 06:15 Random Glucose 87 mg/dL (74-106) 11/12/17 06:15 Calcium 8.0 mg/dL (8.5-10.1) L 11/12/17 06:15 Blood Type O POSITIVE 11/09/17 05:50 Antibody Screen Negative 11/09/17 05:50 INR 1.13 (0.82-1.09) 11/10/17 05:15 Active Medications Generic Name Dose Route Start Last Admin Trade Name Freq PRN Reason Stop Dose Admin Acetaminophen 650 mg 11/10/17 21:19 11/10/17 22:41 Tylenol - PO 650 mg Q4H PRN Administration FEVER Allopurinol 300 mg 11/09/17 10:00 11/12/17 09:29 Zyloprim - PO 300 mg DAILY [facility] Administration Amlodipine Besylate 2.5 mg 11/05/17 10:00 11/12/17 09:29 Norvasc - PO 2.5 mg DAILY [facility] Administration Aspirin 81 mg 11/05/17 10:00 11/12/17 09:28 Ecotrin - PO 81 mg DAILY [facility] Administration Calcium Gluconate 2,000 mg 11/08/17 21:16 Calcium Gluconate 10% - IVPB ONCE PRN tingling Clonazepam 0.5 mg 11/06/17 22:00 11/12/17 21:56 Klonopin - PO 0.5 mg BID [facility] Administration Diphenhydramine HCl 25 mg 11/11/17 13:36 11/13/17 06:02 Benadryl Injection - IVPUSH 25 mg Q6H PRN Administration FOR ITCHING Docusate Sodium 300 mg 11/05/17 22:00 11/12/17 21:55 Colace - PO 300 mg HS [facility] Administration Ferrous Sulfate 325 mg 11/05/17 10:00 11/12/17 09:28 Feosol - PO 325 mg DAILY [facility] Administration Gabapentin 400 mg 11/05/17 06:00 11/13/17 06:01 Neurontin - PO 400 mg TID [facility] Administration Heparin Sodium (Porcine) 5,000 unit 11/12/17 14:00 11/13/17 06:01 Heparin - SQ 5,000 unit TID [facility] Administration Hydroxyurea 500 mg 11/12/17 11:00 11/12/17 22:10 Hydrea - PO 500 mg BID [facility] Administration Propofol 1,000,000 mcg in 100 mls @ 2.637 mls/hr 11/10/17 21:15 11/12/17 23: 41 Diprivan - IVPB Not Given TITR [facility] Protocol 5 MCG/KG/MIN Sodium Chloride 1,000 mls @ 75 mls/hr 11/11/17 10:25 11/13/17 04:28 Normal Saline - IV 75 mls/hr ASDIR [facility] Administration Imatinib Mesylate 400 mg 11/08/17 15:00 11/12/17 09:28 Gleevec (Restricted To Oncology) - PO 400 mg DAILY [facility] Administration Levetiracetam 1,000 mg 11/10/17 22:00 11/12/17 21:58 Keppra Injection - IVPB 1,000 mg BID [facility] Administration Lorazepam 1 mg 11/11/17 20:12 11/12/17 12:45 Ativan Injection - IVPUSH 1 mg Q6H PRN Administration seizures Losartan Potassium 50 mg 11/05/17 10:00 11/12/17 09:28 Cozaar - PO 50 mg DAILY [facility] Administration Morphine Sulfate 4 mg 11/11/17 20:10 11/13/17 04:26 Morphine Sulfate IVPUSH 4 mg Q4H PRN Administration PAIN LEVEL 7 - 10 Patient's Own 1 each 11/12/17 15:15 11/12/17 16:41 Medication: Avenox NR 1 each 30 Mcg Mo [facility] Administration Nystatin 1 applic 11/08/17 12:00 11/12/17 09:29 Nystop Powder - TP 1 applic DAILY [facility] Administration Ondansetron HCl 4 mg 11/06/17 15:46 11/06/17 21:41 Zofran Injection IVPUSH 4 mg Q8H PRN Administration NAUSEA Pantoprazole Sodium 40 mg 11/05/17 10:00 11/12/17 09:29 Protonix - PO 40 mg DAILY [facility] Administration Pramipexole Dihydrochloride 0.25 mg 11/08/17 14:00 11/13/17 06:01 Mirapex - PO 0.25 mg TID [facility] Administration Senna 1 tab 11/05/17 01:06 11/05/17 23:36 Senna - PO 1 tab DAILY PRN Administration CONSTIPATION Zinc Acetate/Diphenhydramine 1 applic 11/11/17 22:00 11/13/17 00:04 Benadryl 2% Cream TP 1 applic BID [facility] Administration A/P 72 y/o patient with thrombocytosis/leukocytosis, new diagnosis of CML , late chronic phase, h/o MS and now with new onset seizures On hydrea/allopurinol/IV fluids On gleevec 400mg daily monitoring renal function/LDH/uric acid discussed with neurology --- will check MRI with contrast will recheck PTT/vWF /? ho;d aspirin to consider LP based on clinical course reeduce dose of hydrea will monitor
[2017-11-12] MEDS: PROPOFOL 1,000,000 MCG/100 ML VIAL IVPB SCH (23:41)
[2017-11-13 00:10] LABS: COMPLEMENT TOTAL(CH50) 53 U/mL (>41)
[2017-11-13] MEDS: morphine SULFATE 4 MG/ML VIAL IVPUSH PRN ×3 (04:26→08:14)
[2017-11-13] MEDS: SODIUM CHLORIDE 1,000 ML IV SCH ×4 (04:28→22:15)
[2017-11-13] MEDS ORDERED: PT OWN MED DRAWER 7, Y5N ONE ×6 (05:58→21:11)
[2017-11-13] MEDS: PRAMIPEXOLE DIHYDROCHLORIDE 0.25 MG TABLET PO SCH ×4 (06:01→21:41)
[2017-11-13] MEDS: GABAPENTIN 400 MG CAPSULE (FP) PO SCH ×4 (06:01→21:44)
[2017-11-13] MEDS: HEPARIN NA (PORCINE) 5,000 UNITS/ML 1ML VIAL SQ SCH ×4 (06:01→21:43)
--- NOTE | 2017-11-13 06:24 | PN ---
Progress Note, Physician Chief Complaint: ASLEEP COMFORTABLE NOTES AND CHART REVIEWED - Current Medication List Current Medications: Active Medications Acetaminophen (Tylenol -) 650 mg PO Q4H PRN PRN Reason: FEVER Last Admin: 11/10/17 22:41 Dose: 650 mg Allopurinol (Zyloprim -) 300 mg PO DAILY [facility] Last Admin: 11/12/17 09:29 Dose: 300 mg Amlodipine Besylate (Norvasc -) 2.5 mg PO DAILY [facility] Last Admin: 11/12/17 09:29 Dose: 2.5 mg Aspirin (Ecotrin -) 81 mg PO DAILY [facility] Last Admin: 11/12/17 09:28 Dose: 81 mg Calcium Gluconate (Calcium Gluconate 10% -) 2,000 mg IVPB ONCE PRN PRN Reason: tingling Clonazepam (Klonopin -) 0.5 mg PO BID [facility] Last Admin: 11/12/17 21:56 Dose: 0.5 mg Diphenhydramine HCl (Benadryl Injection -) 25 mg IVPUSH Q6H PRN PRN Reason: FOR ITCHING Last Admin: 11/13/17 06:02 Dose: 25 mg Docusate Sodium (Colace -) 300 mg PO HS [facility] Last Admin: 11/12/17 21:55 Dose: 300 mg Ferrous Sulfate (Feosol -) 325 mg PO DAILY [facility] Last Admin: 11/12/17 09:28 Dose: 325 mg Gabapentin (Neurontin -) 400 mg PO TID [facility] Last Admin: 11/13/17 06:01 Dose: 400 mg Heparin Sodium (Porcine) (Heparin -) 5,000 unit SQ TID [facility] Last Admin: 11/13/17 06:01 Dose: 5,000 unit Hydroxyurea (Hydrea -) 500 mg PO BID [facility] Last Admin: 11/12/17 22:10 Dose: 500 mg Propofol (Diprivan -) 1,000,000 mcg in 100 mls @ 2.637 mls/hr IVPB TITR [facility]; Protocol Last Admin: 11/12/17 23:41 Dose: Not Given Sodium Chloride (Normal Saline -) 1,000 mls @ 75 mls/hr IV ASDIR [facility] Last Admin: 11/13/17 04:28 Dose: 75 mls/hr Imatinib Mesylate (Gleevec (Restricted To Oncology) -) 400 mg PO DAILY [facility] Last Admin: 11/12/17 09:28 Dose: 400 mg Levetiracetam (Keppra Injection -) 1,000 mg IVPB BID [facility] Last Admin: 11/12/17 21:58 Dose: 1,000 mg Lorazepam (Ativan Injection -) 1 mg IVPUSH Q6H PRN PRN Reason: seizures Last Admin: 11/12/17 12:45 Dose: 1 mg Losartan Potassium (Cozaar -) 50 mg PO DAILY [facility] Last Admin: 11/12/17 09:28 Dose: 50 mg Morphine Sulfate (Morphine Sulfate) 4 mg IVPUSH Q4H PRN PRN Reason: PAIN LEVEL 7 - 10 Last Admin: 11/13/17 04:26 Dose: 4 mg Patient's Own Medication: Avenox 30 Mcg 1 each NR Mo [facility] Last Admin: 11/12/17 16:41 Dose: 1 each Nystatin (Nystop Powder -) 1 applic TP DAILY [facility] Last Admin: 11/12/17 09:29 Dose: 1 applic Ondansetron HCl (Zofran Injection) 4 mg IVPUSH Q8H PRN PRN Reason: NAUSEA Last Admin: 11/06/17 21:41 Dose: 4 mg Pantoprazole Sodium (Protonix -) 40 mg PO DAILY [facility] Last Admin: 11/12/17 09:29 Dose: 40 mg Pramipexole Dihydrochloride (Mirapex -) 0.25 mg PO TID [facility] Last Admin: 11/13/17 06:01 Dose: 0.25 mg Senna (Senna -) 1 tab PO DAILY PRN PRN Reason: CONSTIPATION Last Admin: 11/05/17 23:36 Dose: 1 tab Zinc Acetate/Diphenhydramine (Benadryl 2% Cream) 1 applic TP BID [facility] Last Admin: 11/13/17 00:04 Dose: 1 applic - Objective Vital Signs: Vital Signs Temperature 98.4 F 11/13/17 02:00 Pulse Rate 84 11/13/17 05:28 Respiratory Rate 18 11/13/17 05:28 Blood Pressure 152/72 11/13/17 05:28 O2 Sat by Pulse Oximetry (%) 100 11/12/17 19:39 Constitutional: Yes: No Distress Eyes: Yes: WNL HENT: Yes: WNL Neck: Yes: WNL Cardiovascular: Yes: Pulse Irregular Respiratory: Yes: WNL Gastrointestinal: Yes: WNL Genitourinary: Yes: Other Musculoskeletal: Yes: Muscle Weakness Edema: Yes Integumentary: Yes: Venous Stasis Changes Wound/Incision: Yes: Dressing Dry and Intact Neurological: Yes: Pre-Existing Deficit ...Motor Strength: LLE, RLE Psychiatric: Yes: Other Labs: CBC, BMP 11/12/17 06:15 11/12/17 06:15 INR, PTT INR 1.13 (0.82-1.09) 11/10/17 05:15 Fibrinogen 422.0 mg/dL (238-498) 11/10/17 05:15 Problem List - Problems (1) Abnormal antibody titer Code(s): R76.8 - OTHER SPECIFIED ABNORMAL IMMUNOLOGICAL FINDINGS IN SERUM (2) CML (chronic myelocytic leukemia) Code(s): C92.10 - CHRONIC MYELOID LEUK, BCR/ABL-POSITIVE, NOT ACHIEVE REMIS (3) Fibromyalgia Code(s): M79.7 - FIBROMYALGIA (4) Hypothyroid Code(s): E03.9 - HYPOTHYROIDISM, UNSPECIFIED (5) Seizure Code(s): R56.9 - UNSPECIFIED CONVULSIONS (6) Spinal stenosis Code(s): M48.00 - SPINAL STENOSIS, SITE UNSPECIFIED (7) Thrombocytosis Code(s): D47.3 - ESSENTIAL (HEMORRHAGIC) THROMBOCYTHEMIA (8) UTI (urinary tract infection) Code(s): N39.0 - URINARY TRACT INFECTION, SITE NOT SPECIFIED Qualifiers: Urinary tract infection type: acute cystitis Hematuria presence: without hematuria Qualified Code(s): N30.00 - Acute cystitis without hematuria (9) Weakness Code(s): R53.1 - WEAKNESS Assessment/Plan IV ABX PAIN CONTROL DVT PROPHYLAXIS PULM/HEME WORKUP AWAIT CULTURES OF BLOOD AND URINE
[2017-11-13 07:18] LABS: BASO % 2.3 % (0-2.0); EOS % 3.6 % (0-4.5); HEMATOCRIT 28.5 % (32.4-45.2); HEMOGLOBIN 9.2 GM/dL (10.7-15.3); LYMPH % 15.8 % (8-40); MCH 26.9 pg (25.7-33.7); MCHC 32.2 g/dl (32.0-36.0); MEAN CELL VOLUME 83.4 fl (80-96); MEAN PLT VOLUME 8.8 fl (7.5-11.1); MONO % 1.8 % (3.8-10.2); NEUT % 76.5 % (42.8-82.8); PLATELET COUNT 873 K/MM3 (134-434); RBC 3.42 M/mm3 (3.60-5.2); RDW 15.9 % (11.6-15.6)
[2017-11-13 07:51] LABS: INR 1.16 (0.82-1.09); PROTHROMBIN TIME (PATIENT) 13.1 SEC (9.7-13.0)
[2017-11-13 07:52] LABS: ACTIVATED PTT 33.2 SECONDS (26.9-34.4)
[2017-11-13 09:09] LABS: ALBUMIN 2.7 g/dl (3.4-5.0); ALK PHOS 212 U/L (45-117); BILIRUBIN,TOTAL 0.5 mg/dL (0.2-1.0); BLOOD UREA NITROGEN 18 mg/dL (7-18); CALCIUM 8.5 mg/dL (8.5-10.1); CHLORIDE 105 mmol/L (98-107); CREATININE 1.1 mg/dL (0.55-1.02); GLUCOSE,RANDOM 81 mg/dL (74-106); LDH 310 U/L (84-246); MAGNESIUM 2.3 mg/dL (1.8-2.4); PHOSPHOROUS 4.4 mg/dL (2.5-4.9); POTASSIUM 4.8 mmol/L (3.5-5.1); SGOT/AST 46 U/L (15-37); SGPT/ALT 35 U/L (12-78); SODIUM 140 mmol/L (136-145); TOT PROT 6.1 g/dl (6.4-8.2); URIC ACID 3.9 mg/dL (2.6-7.2)
[2017-11-13] MEDS: FERROUS SO4 325 MG TABLET (FP) PO SCH (09:11)
[2017-11-13] MEDS: LOSARTAN POTASSIUM 50 MG TABLET (FP) PO SCH (09:11)
[2017-11-13] MEDS: levETIRAcetam 500 MG/5 ML INJECTION VIAL IVPB SCH ×3 (09:12→21:42)
[2017-11-13] MEDS: clonazePAM 0.5 MG TABLET PO SCH ×3 (09:12→21:41)
[2017-11-13] MEDS: amLODIPine BESYLATE 2.5 MG TABLET (FP) PO SCH (09:13)
[2017-11-13] MEDS: PANTOPRAZOLE 40 MG TABLET (FP) PO SCH (09:13)
[2017-11-13] MEDS: ALLOPURINOL 100 MG TABLET (FP) PO SCH (09:13)
[2017-11-13] MEDS: HYDROXYUREA 500 MG CAPSULE PO SCH ×3 (09:14→21:42)
[2017-11-13] MEDS: IMATINIB MESYLATE 100 MG TABLET PO SCH (09:14)
[2017-11-13 09:44] LABS: ANION GAP 8 (8-16); CO2 27 mmol/L (21-32)
[2017-11-13] MEDS: ASPIRIN COATED 81 MG TABLET.EC PO SCH (10:05)
[2017-11-13] MEDS: NYSTATIN POWDER 100,000 UNITS/GM - 15 GM TOPICAL POWDER TP SCH (10:07)
--- NOTE | 2017-11-13 10:18 | PN ---
Progress Note (short form) - Note Progress Note: pt seen and examined. events noted +itching Constitutional: Yes: in no Distress HENT: Yes: Atraumatic, Normocephalic Neck: Yes: Supple Cardiovascular: Yes: Regular Rate and Rhythm Respiratory: Yes: Regular Gastrointestinal: Yes: Soft, Abdomen, Obese, Tenderness Edema: Yes Neurological: Yes: AAOX3 skin: scratch aquino noted, no rashes noted Last Vital Signs Temp Pulse Resp BP Pulse Ox 98.4 F 76 18 146/62 100 11/13/17 02:00 11/13/17 08:00 11/13/17 08:00 11/13/17 08:00 11/13/17 09:00 CBC, BMP 11/13/17 06:45 11/13/17 06:45 Current Medications Generic Name Dose Route Start Last Admin Trade Name Freq PRN Reason Stop Dose Admin Acetaminophen 650 mg 11/10/17 21:19 11/10/17 22:41 Tylenol - PO 650 mg Q4H PRN Administration FEVER Allopurinol 300 mg 11/09/17 10:00 11/13/17 09:13 Zyloprim - PO 300 mg DAILY ROSALIE Administration Amlodipine Besylate 2.5 mg 11/05/17 10:00 11/13/17 09:13 Norvasc - PO 2.5 mg DAILY ROSALIE Administration Aspirin 81 mg 11/05/17 10:00 11/13/17 10:05 Ecotrin - PO Not Given DAILY ROSALIE Calcium Gluconate 2,000 mg 11/08/17 21:16 Calcium Gluconate 10% - IVPB ONCE PRN tingling Clonazepam 0.5 mg 11/06/17 22:00 11/13/17 09:12 Klonopin - PO 0.5 mg BID ROSALIE Administration Diphenhydramine HCl 25 mg 11/11/17 13:36 11/13/17 06:02 Benadryl Injection - IVPUSH 25 mg Q6H PRN Administration FOR ITCHING Docusate Sodium 300 mg 11/05/17 22:00 11/12/17 21:55 Colace - PO 300 mg HS ROSALIE Administration Ferrous Sulfate 325 mg 11/05/17 10:00 11/13/17 09:11 Feosol - PO 325 mg DAILY ROSALIE Administration Gabapentin 400 mg 11/05/17 06:00 11/13/17 06:01 Neurontin - PO 400 mg TID ROSALIE Administration Heparin Sodium (Porcine) 5,000 unit 11/12/17 14:00 11/13/17 06:01 Heparin - SQ 5,000 unit TID ROSALIE Administration Hydroxyurea 500 mg 11/12/17 11:00 11/13/17 09:14 Hydrea - PO 500 mg BID ROSALIE Administration Propofol 1,000,000 mcg in 100 mls @ 2.637 mls/hr 11/10/17 21:15 11/12/17 23: 41 Diprivan - IVPB Not Given TITR ROSALIE Protocol 5 MCG/KG/MIN Sodium Chloride 1,000 mls @ 75 mls/hr 11/11/17 10:25 11/13/17 04:28 Normal Saline - IV 75 mls/hr ASDIR ROSALIE Administration Imatinib Mesylate 400 mg 11/08/17 15:00 11/13/17 09:14 Gleevec (Restricted To Oncology) - PO 400 mg DAILY ROSALIE Administration Levetiracetam 1,000 mg 11/10/17 22:00 11/13/17 09:12 Keppra Injection - IVPB 1,000 mg BID ROSALIE Administration Lorazepam 1 mg 11/11/17 20:12 11/12/17 12:45 Ativan Injection - IVPUSH 1 mg Q6H PRN Administration seizures Losartan Potassium 50 mg 11/05/17 10:00 11/13/17 09:11 Cozaar - PO 50 mg DAILY ROSALIE Administration Morphine Sulfate 4 mg 11/11/17 20:10 11/13/17 08:14 Morphine Sulfate IVPUSH 4 mg Q4H PRN Administration PAIN LEVEL 7 - 10 Patient's Own 1 each 11/12/17 15:15 11/12/17 16:41 Medication: Avenox NR 1 each 30 Mcg Mo ROSALIE Administration Nystatin 1 applic 11/08/17 12:00 11/13/17 10:07 Nystop Powder - TP 1 applic DAILY ROSALIE Administration Ondansetron HCl 4 mg 11/06/17 15:46 11/06/17 21:41 Zofran Injection IVPUSH 4 mg Q8H PRN Administration NAUSEA Pantoprazole Sodium 40 mg 11/05/17 10:00 11/13/17 09:13 Protonix - PO 40 mg DAILY ROSALIE Administration Pramipexole Dihydrochloride 0.25 mg 11/08/17 14:00 11/13/17 06:01 Mirapex - PO 0.25 mg TID ROSALIE Administration Senna 1 tab 11/05/17 01:06 11/05/17 23:36 Senna - PO 1 tab DAILY PRN Administration CONSTIPATION Zinc Acetate/Diphenhydramine 1 applic 11/11/17 22:00 11/13/17 00:04 Benadryl 2% Cream TP 1 applic BID ROSALIE Administration Chronic Myeloid Leukemia--- BCR ABL positive (Translocation t9;22) - c/w gleevac present doses -c/w hydrea 500mg bid, will taper off in the next few days -?pruritis ?sec to gleevac-- derm c/s, standing atarax. Elevated RA/+HALIMA Appreciate Rheum Problem List - Problems (1) Leukocytosis Code(s): D72.829 - ELEVATED WHITE BLOOD CELL COUNT, UNSPECIFIED Qualifiers: Leukocytosis type: unspecified Qualified Code(s): D72.829 - Elevated white blood cell count, unspecified (2) Thrombocytosis Code(s): D47.3 - ESSENTIAL (HEMORRHAGIC) THROMBOCYTHEMIA (3) Chronic pain of multiple joints Code(s): M25.50 - PAIN IN UNSPECIFIED JOINT; G89.29 - OTHER CHRONIC PAIN
[2017-11-13] MEDS ORDERED: hydrOXYzine PAMOATE 50 MG CAPSULE (FP) PO ONE (10:53)
--- NOTE | 2017-11-13 11:02 | PN ---
Progress Note (short form) - Note Progress Note: Patient with reducing WBC count and diagnosis of CML. Cervical spondylosis noted on CT and MRI and this may account for some of her Myelopathic symptoms, however, at this point her other medical conditions require attention. I would be happy to see this patient semi-electively if her acute medical concerns are stabilized and her Cervical Spondylosis becomes a primary concern.
--- NOTE | 2017-11-13 11:25 | PN ---
Teaching Attending Note Name of Resident: Paulina Finch ATTENDING PHYSICIAN STATEMENT I saw and evaluated the patient. I reviewed the resident's note and discussed the case with the resident. I agree with the resident's findings and plan as documented. SUBJECTIVE: Patient seen and examined in the ICU. Awake and alert, mildly confused. No seizure activity noted. Reports itching. Denies CP or SOB. Laboratory Results - last 24 hr 11/09/17 11/09/17 11/09/17 05:50 05:50 05:50 WBC RBC Hgb Hct MCV MCH MCHC RDW Plt Count MPV Absolute Neuts (auto) Neutrophils % Lymphocytes % Monocytes % Eosinophils % Basophils % Nucleated RBC % PT with INR INR PTT (Actin FS) von Willebrand Antigen 80 Sodium Potassium Chloride Carbon Dioxide Anion Gap BUN Creatinine Creat Clearance w eGFR Random Glucose Uric Acid Calcium Phosphorus Magnesium Total Bilirubin AST ALT Alkaline Phosphatase LD Total Total Protein Albumin Tot Complement (CH50) 53 Blood Type O POSITIVE Antibody Screen Negative Crossmatch See Detail 11/13/17 11/13/17 11/13/17 06:45 06:45 06:45 WBC 14.0 H D RBC 3.42 L Hgb 9.2 L Hct 28.5 L MCV 83.4 MCH 26.9 MCHC 32.2 RDW 15.9 H Plt Count 873 H MPV 8.8 Absolute Neuts (auto) 10.7 Neutrophils % 76.5 Lymphocytes % 15.8 D Monocytes % 1.8 L Eosinophils % 3.6 D Basophils % 2.3 H Nucleated RBC % 0 PT with INR 13.10 H INR 1.16 H PTT (Actin FS) 33.2 von Willebrand Antigen Sodium 140 Potassium 4.8 Chloride 105 Carbon Dioxide 27 Anion Gap 8 BUN 18 Creatinine 1.1 H Creat Clearance w eGFR 48.82 Random Glucose 81 Uric Acid 3.9 Calcium 8.5 Phosphorus 4.4 Magnesium 2.3 Total Bilirubin 0.5 D AST 46 H ALT 35 Alkaline Phosphatase 212 H LD Total 310 H Total Protein 6.1 L Albumin 2.7 L Tot Complement (CH50) Blood Type Antibody Screen Crossmatch Constitutional: Yes: Awake and alert, mildly confused, NAD Cardiovascular: Yes: Regular Rate and Rhythm Respiratory: Yes: CTA Bilaterally Gastrointestinal: Yes: WNL, Normal Bowel Sounds Edema: No Peripheral Pulses WNL: Yes Neurological: Yes: Non-focal Skin: Minimal rash Labs: Laboratory Results - last 24 hr 11/09/17 11/09/17 11/09/17 05:50 05:50 05:50 WBC RBC Hgb Hct MCV MCH MCHC RDW Plt Count MPV Absolute Neuts (auto) Neutrophils % Lymphocytes % Monocytes % Eosinophils % Basophils % Nucleated RBC % PT with INR INR PTT (Actin FS) von Willebrand Antigen 80 Sodium Potassium Chloride Carbon Dioxide Anion Gap BUN Creatinine Creat Clearance w eGFR Random Glucose Uric Acid Calcium Phosphorus Magnesium Total Bilirubin AST ALT Alkaline Phosphatase LD Total Total Protein Albumin Tot Complement (CH50) 53 Blood Type O POSITIVE Antibody Screen Negative Crossmatch See Detail 11/13/17 11/13/17 11/13/17 06:45 06:45 06:45 WBC 14.0 H D RBC 3.42 L Hgb 9.2 L Hct 28.5 L MCV 83.4 MCH 26.9 MCHC 32.2 RDW 15.9 H Plt Count 873 H MPV 8.8 Absolute Neuts (auto) 10.7 Neutrophils % 76.5 Lymphocytes % 15.8 D Monocytes % 1.8 L Eosinophils % 3.6 D Basophils % 2.3 H Nucleated RBC % 0 PT with INR 13.10 H INR 1.16 H PTT (Actin FS) 33.2 von Willebrand Antigen Sodium 140 Potassium 4.8 Chloride 105 Carbon Dioxide 27 Anion Gap 8 BUN 18 Creatinine 1.1 H Creat Clearance w eGFR 48.82 Random Glucose 81 Uric Acid 3.9 Calcium 8.5 Phosphorus 4.4 Magnesium 2.3 Total Bilirubin 0.5 D AST 46 H ALT 35 Alkaline Phosphatase 212 H LD Total 310 H Total Protein 6.1 L Albumin 2.7 L Tot Complement (CH50) Blood Type Antibody Screen Crossmatch Problem List - Problems (1) Seizure Code(s): R56.9 - UNSPECIFIED CONVULSIONS (2) Spinal stenosis Code(s): M48.00 - SPINAL STENOSIS, SITE UNSPECIFIED (3) Thrombocytosis Code(s): D47.3 - ESSENTIAL (HEMORRHAGIC) THROMBOCYTHEMIA (4) Leukocytosis Code(s): D72.829 - ELEVATED WHITE BLOOD CELL COUNT, UNSPECIFIED Qualifiers: Leukocytosis type: unspecified Qualified Code(s): D72.829 - Elevated white blood cell count, unspecified (5) Hypertension Code(s): I10 - ESSENTIAL (PRIMARY) HYPERTENSION Assessment/Plan Chronic Myeloid Leukemia Leukocytosis and thrombocytosis New onset seizures Cervical spine stenosis/Degenerative disc disease MS Chronic pain Rash/itching possibly due to Gleevac Gleevac per Heme: To discuss the need for Prednisone Hydrea per Heme Allopurinol Keppra Gabapentin Clonazepam Mirapex ASA 81mg Oxycodone for pain management VTE and GI prophylaxis Neuro follow up Oncology floor monitoring Dr Major Critical care time spent in reviewing chart, evaluating patient and formulating plan - 36 minutes.
--- NOTE | 2017-11-13 13:45 | PN ---
Physical Exam: SUBJECTIVE: Patient seen and examined. No acute events overnight. Complains of itching in her R arm. MRI last night unremarkable. No LP at this time per Heme. OBJECTIVE: Vital Signs Period Temp Pulse Resp BP Sys/Teague Pulse Ox Last 24 Hr 98.3 F-99 F 72-84 18-21 109-173/44-116 100-100 GENERAL: A/o x 3, appears comfortable in NAD EYES: PERRL ENT: moist mucous membranes. LUNGS: Clear to auscultation bilaterally, no wheezes, no crackles, no accessory muscle use. HEART: Regular rate and rhythm ABDOMEN: Soft, Obese, nontender, nondistended, normoactive bowel sounds. EXTREMITIES: No peripheral edema. NEUROLOGICAL: Cn 2-12 intact. Laboratory Results - last 24 hr 11/09/17 11/09/17 11/09/17 05:50 05:50 05:50 WBC RBC Hgb Hct MCV MCH MCHC RDW Plt Count MPV Absolute Neuts (auto) Neutrophils % Lymphocytes % Monocytes % Eosinophils % Basophils % Nucleated RBC % PT with INR INR PTT (Actin FS) von Willebrand Antigen 80 Sodium Potassium Chloride Carbon Dioxide Anion Gap BUN Creatinine Creat Clearance w eGFR Random Glucose Uric Acid Calcium Phosphorus Magnesium Total Bilirubin AST ALT Alkaline Phosphatase LD Total Total Protein Albumin Tot Complement (CH50) 53 Blood Type O POSITIVE Antibody Screen Negative Crossmatch See Detail 11/13/17 11/13/17 11/13/17 06:45 06:45 06:45 WBC 14.0 H D RBC 3.42 L Hgb 9.2 L Hct 28.5 L MCV 83.4 MCH 26.9 MCHC 32.2 RDW 15.9 H Plt Count 873 H MPV 8.8 Absolute Neuts (auto) 10.7 Neutrophils % 76.5 Lymphocytes % 15.8 D Monocytes % 1.8 L Eosinophils % 3.6 D Basophils % 2.3 H Nucleated RBC % 0 PT with INR 13.10 H INR 1.16 H PTT (Actin FS) 33.2 von Willebrand Antigen Sodium 140 Potassium 4.8 Chloride 105 Carbon Dioxide 27 Anion Gap 8 BUN 18 Creatinine 1.1 H Creat Clearance w eGFR 48.82 Random Glucose 81 Uric Acid 3.9 Calcium 8.5 Phosphorus 4.4 Magnesium 2.3 Total Bilirubin 0.5 D AST 46 H ALT 35 Alkaline Phosphatase 212 H LD Total 310 H Total Protein 6.1 L Albumin 2.7 L Tot Complement (CH50) Blood Type Antibody Screen Crossmatch Active Medications Generic Name Dose Route Start Last Admin Trade Name Freq PRN Reason Stop Dose Admin Acetaminophen 650 mg 11/10/17 21:19 11/10/17 22:41 Tylenol - PO 650 mg Q4H PRN Administration FEVER Allopurinol 300 mg 11/09/17 10:00 11/13/17 09:13 Zyloprim - PO 300 mg DAILY ROSALIE Administration Amlodipine Besylate 2.5 mg 11/05/17 10:00 11/13/17 09:13 Norvasc - PO 2.5 mg DAILY ROSALIE Administration Aspirin 81 mg 11/05/17 10:00 11/13/17 10:05 Ecotrin - PO Not Given DAILY ROSALIE Calcium Gluconate 2,000 mg 11/08/17 21:16 Calcium Gluconate 10% - IVPB ONCE PRN tingling Clonazepam 0.5 mg 11/06/17 22:00 11/13/17 09:12 Klonopin - PO 0.5 mg BID ROSALIE Administration Diphenhydramine HCl 25 mg 11/11/17 13:36 11/13/17 06:02 Benadryl Injection - IVPUSH 25 mg Q6H PRN Administration FOR ITCHING Docusate Sodium 300 mg 11/05/17 22:00 11/12/17 21:55 Colace - PO 300 mg HS ROSALIE Administration Ferrous Sulfate 325 mg 11/05/17 10:00 11/13/17 09:11 Feosol - PO 325 mg DAILY ROSALIE Administration Gabapentin 400 mg 11/05/17 06:00 11/13/17 06:01 Neurontin - PO 400 mg TID ROSALIE Administration Heparin Sodium (Porcine) 5,000 unit 11/12/17 14:00 11/13/17 06:01 Heparin - SQ 5,000 unit TID ROSALIE Administration Hydroxyurea 500 mg 11/12/17 11:00 11/13/17 09:14 Hydrea - PO 500 mg BID ROSALIE Administration Propofol 1,000,000 mcg in 100 mls @ 2.637 mls/hr 11/10/17 21:15 11/12/17 23: 41 Diprivan - IVPB Not Given TITR ROSALIE Protocol 5 MCG/KG/MIN Sodium Chloride 1,000 mls @ 75 mls/hr 11/11/17 10:25 11/13/17 10:25 Normal Saline - IV Not Given ASDIR ROSALIE Imatinib Mesylate 400 mg 11/08/17 15:00 11/13/17 09:14 Gleevec (Restricted To Oncology) - PO 400 mg DAILY ROSALIE Administration Levetiracetam 1,000 mg 11/10/17 22:00 11/13/17 09:12 Keppra Injection - IVPB 1,000 mg BID ROSALIE Administration Lorazepam 1 mg 11/11/17 20:12 11/12/17 12:45 Ativan Injection - IVPUSH 1 mg Q6H PRN Administration seizures Losartan Potassium 50 mg 11/05/17 10:00 11/13/17 09:11 Cozaar - PO 50 mg DAILY ROSALIE Administration Morphine Sulfate 4 mg 11/11/17 20:10 11/13/17 08:14 Morphine Sulfate IVPUSH 4 mg Q4H PRN Administration PAIN LEVEL 7 - 10 Patient's Own 1 each 11/12/17 15:15 11/12/17 16:41 Medication: Avenox NR 1 each 30 Mcg Mo ROSALIE Administration Nystatin 1 applic 11/08/17 12:00 11/13/17 10:07 Nystop Powder - TP 1 applic DAILY ROSALIE Administration Ondansetron HCl 4 mg 11/06/17 15:46 11/06/17 21:41 Zofran Injection IVPUSH 4 mg Q8H PRN Administration NAUSEA Pantoprazole Sodium 40 mg 11/05/17 10:00 11/13/17 09:13 Protonix - PO 40 mg DAILY ROSALIE Administration Pramipexole Dihydrochloride 0.25 mg 11/08/17 14:00 11/13/17 06:01 Mirapex - PO 0.25 mg TID ROSALIE Administration Senna 1 tab 11/05/17 01:06 11/05/17 23:36 Senna - PO 1 tab DAILY PRN Administration CONSTIPATION Zinc Acetate/Diphenhydramine 1 applic 11/11/17 22:00 11/13/17 10:32 Benadryl 2% Cream TP 1 applic BID ROSALIE Administration ASSESSMENT/PLAN: Patient is a 72 year old female who was for abnormal labs of leukocytosis. Patient was witnessed to have seizure activity and transferred to ICU for further monitoring or management. Neuro: #Seizures -Possibly pseudo. R/o vasculitis -CT head and MRI negative -Repeat MRI 11/12 unremarkable -Continue Keppra 1000mg BID -Ativan PRN -No LP indicated at this time. #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 -Continue Avenox 30mcg weekly on Mondays #Cervical Spinal Stenosis -Continue Gabapentin 400mg po TID #Restless Leg Syndrome -Continue Mirapex 0.25mg po TID Heme/Onc: #Chronic Myeloid Leukemia -Continue Hydroxyurea and Gleevac -Continue Allopurinol #Thrombocytosis/Leukocytosis -Secondary to CML -S/P Plateletpheresis (11/08 and 11/09). No longer requires it, as per heme/ onco. Catheter removed -Continue CBC, LDH, and Uric acid Nephro: #ADELA on CKD -does not meet criteria for tumor lysis syndrome -Cr at Baseline 0.9-1.1. -Continue IVF with NS@75mls/hr -May continue ARB -Continue to follow BMP with phosphorus and Uric acid Cardio: #HTN-controlled -Continue Amlodipine 2.5mg PO daily, Losartan 50mg PO daily -Continue to monitor BP #CAD -Continue ASA 81mg po daily PSYCH: #Anxiety/Depression -Klonopin 0.5mg F/E/N -IV NS @75mls/hr -Electrolytes wnl -Sodium controlled diet. Prophylaxis -Continue Heparin 5000 units sq TID for DVT -Protonix 40mg PO daily for GI Transfer to [facility], oncology floor Visit type - Emergency Visit Emergency Visit: Yes ED Registration Date: 11/06/17 Care time: The patient presented to the Emergency Department on the above date and was hospitalized for further evaluation of their emergent condition. - New Patient This patient is new to me today: Yes Date on this admission: 11/13/17 - Critical Care Critical Care patient: Yes Total Critical Care Time (in minutes): 40 Critical Care Statement: The care of this patient involved high complexity decision making to prevent further life threatening deterioration of the patient 's condition and/or to evaluate & treat vital organ system(s) failure or risk of failure.
--- NOTE | 2017-11-13 14:44 | PN ---
Progress Note, Physician Chief Complaint: AWAKE [facility] BEDSIDE NO COMPLAINTS AWAITING BED ON TEL VS MED SURG - Current Medication List Current Medications: Active Medications Acetaminophen (Tylenol -) 650 mg PO Q4H PRN PRN Reason: FEVER Last Admin: 11/10/17 22:41 Dose: 650 mg Allopurinol (Zyloprim -) 300 mg PO DAILY [facility] Last Admin: 11/13/17 09:13 Dose: 300 mg Amlodipine Besylate (Norvasc -) 2.5 mg PO DAILY [facility] Last Admin: 11/13/17 09:13 Dose: 2.5 mg Aspirin (Ecotrin -) 81 mg PO DAILY [facility] Last Admin: 11/13/17 10:05 Dose: Not Given Calcium Gluconate (Calcium Gluconate 10% -) 2,000 mg IVPB ONCE PRN PRN Reason: tingling Clonazepam (Klonopin -) 0.5 mg PO BID [facility] Last Admin: 11/13/17 09:12 Dose: 0.5 mg Diphenhydramine HCl (Benadryl Injection -) 25 mg IVPUSH Q6H PRN PRN Reason: FOR ITCHING Last Admin: 11/13/17 06:02 Dose: 25 mg Docusate Sodium (Colace -) 300 mg PO HS [facility] Last Admin: 11/12/17 21:55 Dose: 300 mg Ferrous Sulfate (Feosol -) 325 mg PO DAILY [facility] Last Admin: 11/13/17 09:11 Dose: 325 mg Gabapentin (Neurontin -) 400 mg PO TID [facility] Last Admin: 11/13/17 14:07 Dose: 400 mg Heparin Sodium (Porcine) (Heparin -) 5,000 unit SQ TID [facility] Last Admin: 11/13/17 14:07 Dose: 5,000 unit Hydroxyurea (Hydrea -) 500 mg PO BID [facility] Last Admin: 11/13/17 09:14 Dose: 500 mg Propofol (Diprivan -) 1,000,000 mcg in 100 mls @ 2.637 mls/hr IVPB TITR [facility]; Protocol Last Admin: 11/12/17 23:41 Dose: Not Given Sodium Chloride (Normal Saline -) 1,000 mls @ 75 mls/hr IV ASDIR [facility] Last Admin: 11/13/17 10:25 Dose: Not Given Imatinib Mesylate (Gleevec (Restricted To Oncology) -) 400 mg PO DAILY [facility] Last Admin: 11/13/17 09:14 Dose: 400 mg Levetiracetam (Keppra Injection -) 1,000 mg IVPB BID [facility] Last Admin: 11/13/17 09:12 Dose: 1,000 mg Lorazepam (Ativan Injection -) 1 mg IVPUSH Q6H PRN PRN Reason: seizures Last Admin: 11/12/17 12:45 Dose: 1 mg Losartan Potassium (Cozaar -) 50 mg PO DAILY [facility] Last Admin: 11/13/17 09:11 Dose: 50 mg Morphine Sulfate (Morphine Sulfate) 4 mg IVPUSH Q4H PRN PRN Reason: PAIN LEVEL 7 - 10 Last Admin: 11/13/17 08:14 Dose: 4 mg Patient's Own Medication: Avenox 30 Mcg 1 each NR Mo [facility] Last Admin: 11/12/17 16:41 Dose: 1 each Nystatin (Nystop Powder -) 1 applic TP DAILY [facility] Last Admin: 11/13/17 10:07 Dose: 1 applic Ondansetron HCl (Zofran Injection) 4 mg IVPUSH Q8H PRN PRN Reason: NAUSEA Last Admin: 11/06/17 21:41 Dose: 4 mg Pantoprazole Sodium (Protonix -) 40 mg PO DAILY [facility] Last Admin: 11/13/17 09:13 Dose: 40 mg Pramipexole Dihydrochloride (Mirapex -) 0.25 mg PO TID [facility] Last Admin: 11/13/17 14:08 Dose: 0.25 mg Senna (Senna -) 1 tab PO DAILY PRN PRN Reason: CONSTIPATION Last Admin: 11/05/17 23:36 Dose: 1 tab Zinc Acetate/Diphenhydramine (Benadryl 2% Cream) 1 applic TP BID [facility] Last Admin: 11/13/17 10:32 Dose: 1 applic - Objective Vital Signs: Vital Signs Temperature 98.8 F 11/13/17 14:00 Pulse Rate 82 11/13/17 14:00 Respiratory Rate 18 11/13/17 14:00 Blood Pressure 135/54 11/13/17 14:00 O2 Sat by Pulse Oximetry (%) 100 11/13/17 09:00 Constitutional: Yes: No Distress Eyes: Yes: WNL HENT: Yes: WNL Neck: Yes: WNL Cardiovascular: Yes: Pulse Irregular Respiratory: Yes: On Nasal O2, SOB Gastrointestinal: Yes: WNL Genitourinary: Yes: Incontinence Musculoskeletal: Yes: Muscle Weakness Extremities: Yes: WNL Edema: Yes Peripheral Pulses WNL: Yes Integumentary: Yes: WNL Wound/Incision: Yes: Clean/Dry Neurological: Yes: Pre-Existing Deficit Psychiatric: Yes: Other Labs: CBC, BMP 11/13/17 06:45 11/13/17 06:45 INR, PTT INR 1.16 (0.82-1.09) H 11/13/17 06:45 Fibrinogen 422.0 mg/dL (238-498) 11/10/17 05:15 Problem List - Problems (1) Abnormal antibody titer Code(s): R76.8 - OTHER SPECIFIED ABNORMAL IMMUNOLOGICAL FINDINGS IN SERUM (2) CML (chronic myelocytic leukemia) Code(s): C92.10 - CHRONIC MYELOID LEUK, BCR/ABL-POSITIVE, NOT ACHIEVE REMIS (3) Fibromyalgia Code(s): M79.7 - FIBROMYALGIA (4) Hypothyroid Code(s): E03.9 - HYPOTHYROIDISM, UNSPECIFIED (5) Seizure Code(s): R56.9 - UNSPECIFIED CONVULSIONS (6) Spinal stenosis Code(s): M48.00 - SPINAL STENOSIS, SITE UNSPECIFIED (7) Thrombocytosis Code(s): D47.3 - ESSENTIAL (HEMORRHAGIC) THROMBOCYTHEMIA (8) UTI (urinary tract infection) Code(s): N39.0 - URINARY TRACT INFECTION, SITE NOT SPECIFIED Qualifiers: Urinary tract infection type: acute cystitis Hematuria presence: without hematuria Qualified Code(s): N30.00 - Acute cystitis without hematuria (9) Weakness Code(s): R53.1 - WEAKNESS Assessment/Plan IV ABX PER ID OOB TO CHAIR PT EVAL TRANSFER OUT OF ICU TO TELE WHEN BED AVAILABLE DVT PROPHYLAXIS
--- NOTE | 2017-11-13 17:12 | PN ---
Progress Note (short form) - Note Progress Note: Renal follow up for suspected ADELA vs. CKD Pt seen and examined in the ICU awake and alert has poor apetite making urine Vital Signs Temperature 97.6 F 11/13/17 16:00 Pulse Rate 71 11/13/17 16:00 Respiratory Rate 19 11/13/17 16:00 Blood Pressure 128/57 11/13/17 16:00 O2 Sat by Pulse Oximetry (%) 100 11/13/17 09:00 Intake & Output 11/10/17 11/11/17 11/12/17 11/13/17 23:59 23:59 23:59 23:59 Intake Total 860 1627.5 2550 900 Output Total 2200 1000 200 Balance -1340 627.5 2350 900 Weight 87.9 kg 89.4 kg 88.4 kg 88.989 kg NAD awake and alert RRR CTA soft, obese, NT/ND trace LE edema CBC, BMP 11/13/17 06:45 11/13/17 06:45 Current Medications Acetaminophen (Tylenol -) 650 mg PO Q4H PRN PRN Reason: FEVER Last Admin: 11/10/17 22:41 Dose: 650 mg Allopurinol (Zyloprim -) 300 mg PO DAILY [facility] Last Admin: 11/13/17 09:13 Dose: 300 mg Amlodipine Besylate (Norvasc -) 2.5 mg PO DAILY [facility] Last Admin: 11/13/17 09:13 Dose: 2.5 mg Calcium Gluconate (Calcium Gluconate 10% -) 2,000 mg IVPB ONCE PRN PRN Reason: tingling Clonazepam (Klonopin -) 0.5 mg PO BID [facility] Last Admin: 11/13/17 09:12 Dose: 0.5 mg Diphenhydramine HCl (Benadryl Injection -) 25 mg IVPUSH Q6H PRN PRN Reason: FOR ITCHING Last Admin: 11/13/17 15:03 Dose: 25 mg Docusate Sodium (Colace -) 300 mg PO HS [facility] Last Admin: 11/12/17 21:55 Dose: 300 mg Ferrous Sulfate (Feosol -) 325 mg PO DAILY [facility] Last Admin: 11/13/17 09:11 Dose: 325 mg Gabapentin (Neurontin -) 400 mg PO TID [facility] Last Admin: 11/13/17 14:07 Dose: 400 mg Heparin Sodium (Porcine) (Heparin -) 5,000 unit SQ TID [facility] Last Admin: 11/13/17 14:07 Dose: 5,000 unit Hydroxyurea (Hydrea -) 500 mg PO BID [facility] Last Admin: 11/13/17 09:14 Dose: 500 mg Propofol (Diprivan -) 1,000,000 mcg in 100 mls @ 2.637 mls/hr IVPB TITR [facility]; Protocol Last Admin: 11/12/17 23:41 Dose: Not Given Sodium Chloride (Normal Saline -) 1,000 mls @ 75 mls/hr IV ASDIR [facility] Last Admin: 11/13/17 10:25 Dose: Not Given Imatinib Mesylate (Gleevec (Restricted To Oncology) -) 400 mg PO DAILY [facility] Last Admin: 11/13/17 09:14 Dose: 400 mg Levetiracetam (Keppra Injection -) 1,000 mg IVPB BID [facility] Last Admin: 11/13/17 09:12 Dose: 1,000 mg Lorazepam (Ativan Injection -) 1 mg IVPUSH Q6H PRN PRN Reason: seizures Last Admin: 11/12/17 12:45 Dose: 1 mg Losartan Potassium (Cozaar -) 50 mg PO DAILY [facility] Last Admin: 11/13/17 09:11 Dose: 50 mg Patient's Own Medication: Avenox 30 Mcg 1 each NR Mo [facility] Last Admin: 11/12/17 16:41 Dose: 1 each Nystatin (Nystop Powder -) 1 applic TP DAILY [facility] Last Admin: 11/13/17 10:07 Dose: 1 applic Ondansetron HCl (Zofran Injection) 4 mg IVPUSH Q8H PRN PRN Reason: NAUSEA Last Admin: 11/06/17 21:41 Dose: 4 mg Pantoprazole Sodium (Protonix -) 40 mg PO DAILY [facility] Last Admin: 11/13/17 09:13 Dose: 40 mg Pramipexole Dihydrochloride (Mirapex -) 0.25 mg PO TID [facility] Last Admin: 11/13/17 14:08 Dose: 0.25 mg Senna (Senna -) 1 tab PO DAILY PRN PRN Reason: CONSTIPATION Last Admin: 11/05/17 23:36 Dose: 1 tab Zinc Acetate/Diphenhydramine (Benadryl 2% Cream) 1 applic TP BID [facility] Last Admin: 11/13/17 10:32 Dose: 1 applic 72 year old woman with PMhx of MS, Newly diagnosed CML with thrombocytosis/ leukocytosis with AMS and Cr of 1.3 #ADELA vs. CKD r/o tumor lysis syndrome Cr is improved and stable can continue gentle IVF as long a pt has poor apatite Trend BUN/Cr PHos/Uric acid/K noted, no evidence of TLS Roman Santillan DO
[2017-11-13] MEDS: LORazepam 2 MG/ML SDV VIAL IVPUSH PRN (17:56)
[2017-11-13] MEDS ORDERED: ACETAMINOPHEN 325 MG TABLET (FP) PO PRN ×2 (18:36→22:10)
[2017-11-13] MEDS ORDERED: CALCIUM GLUCONATE 10% - 1,000 MG/10 ML VIAL IVPB PRN ×2 (18:36→22:10)
[2017-11-13] MEDS ORDERED: PROPOFOL 1,000,000 MCG/100 ML VIAL IVPB SCH (18:36)
[2017-11-13] MEDS ORDERED: SENNOSIDES 8.6MG TABLET (FP) PO PRN ×2 (18:36→22:10)
[2017-11-13] MEDS ORDERED: LORazepam 2 MG/ML SDV VIAL IVPUSH PRN ×2 (18:36→22:10)
[2017-11-13] MEDS ORDERED: ONDANSETRON 4 MG/2 ML VIAL IVPUSH PRN (18:36)
[2017-11-13] MEDS ORDERED: SODIUM CHLORIDE 1,000 ML IV SCH (18:36)
[2017-11-13] MEDS: DOCUSATE SODIUM 100 MG CAPSULE (FP) PO SCH ×2 (21:23→21:45)
[2017-11-13] MEDS ORDERED: hydrOXYzine HCL 10 MG TABLET PO SCH (22:00)
[2017-11-14] MEDS: HEPARIN NA (PORCINE) 5,000 UNITS/ML 1ML VIAL SQ SCH ×3 (06:13→22:21)
[2017-11-14] MEDS: GABAPENTIN 400 MG CAPSULE (FP) PO SCH ×3 (06:14→22:22)
[2017-11-14] MEDS: PRAMIPEXOLE DIHYDROCHLORIDE 0.25 MG TABLET PO SCH ×3 (06:15→22:24)
[2017-11-14] MEDS: hydrOXYzine HCL 10 MG TABLET PO SCH ×5 (06:18→22:20)
[2017-11-14] MEDS ORDERED: PT OWN MED DRAWER 7, Y5N ONE ×2 (06:40→09:22)
--- NOTE | 2017-11-14 08:37 | PN ---
Progress Note, Physician History of Present Illness: -now out of icu -alert - Current Medication List Current Medications: Active Medications Acetaminophen (Tylenol -) 650 mg PO Q4H PRN PRN Reason: FEVER Last Admin: 11/14/17 06:41 Dose: 650 mg Allopurinol (Zyloprim -) 300 mg PO DAILY [facility] Amlodipine Besylate (Norvasc -) 2.5 mg PO DAILY [facility] Calcium Gluconate (Calcium Gluconate 10% -) 2,000 mg IVPB ONCE PRN PRN Reason: tingling Clonazepam (Klonopin -) 0.5 mg PO BID [facility] Diphenhydramine HCl (Benadryl Injection -) 25 mg IVPUSH Q6H PRN PRN Reason: FOR ITCHING Docusate Sodium (Colace -) 300 mg PO HS [facility] Ferrous Sulfate (Feosol -) 325 mg PO DAILY [facility] Gabapentin (Neurontin -) 400 mg PO TID [facility] Last Admin: 11/14/17 06:14 Dose: 400 mg Heparin Sodium (Porcine) (Heparin -) 5,000 unit SQ TID [facility] Last Admin: 11/14/17 06:13 Dose: 5,000 unit Hydroxyzine HCl (Atarax -) 10 mg PO Q4HWA [facility] Last Admin: 11/14/17 06:18 Dose: 10 mg Sodium Chloride (Normal Saline -) 1,000 mls @ 75 mls/hr IV ASDIR [facility] Last Admin: 11/13/17 22:15 Dose: Not Given Imatinib Mesylate (Gleevec (Restricted To Oncology) -) 400 mg PO DAILY [facility] Levetiracetam (Keppra Injection -) 1,000 mg IVPB BID [facility] Lorazepam (Ativan Injection -) 1 mg IVPUSH Q6H PRN PRN Reason: seizures Losartan Potassium (Cozaar -) 50 mg PO DAILY [facility] Non-Formulary Medication (Patient's Own Med) 1 each NR Mo [facility] Nystatin (Nystop Powder -) 1 applic TP DAILY [facility] Pantoprazole Sodium (Protonix -) 40 mg PO DAILY [facility] Pramipexole Dihydrochloride (Mirapex -) 0.25 mg PO TID [facility] Last Admin: 11/14/17 06:15 Dose: 0.25 mg Senna (Senna -) 1 tab PO DAILY PRN PRN Reason: CONSTIPATION Last Admin: 11/14/17 06:14 Dose: 1 tab Zinc Acetate/Diphenhydramine (Benadryl 2% Cream) 1 applic TP BID [facility] - Objective Vital Signs: Vital Signs Temperature 98.7 F 11/14/17 05:28 Pulse Rate 71 11/14/17 05:28 Respiratory Rate 20 11/14/17 05:28 Blood Pressure 144/75 11/14/17 05:28 O2 Sat by Pulse Oximetry (%) 100 11/13/17 19:42 Cardiovascular: Yes: S1, S2 Respiratory: Yes: Regular, CTA Bilaterally Gastrointestinal: Yes: Normal Bowel Sounds, Soft Labs: CBC, BMP 11/13/17 06:45 11/13/17 06:45 INR, PTT INR 1.16 (0.82-1.09) H 11/13/17 06:45 Fibrinogen 422.0 mg/dL (238-498) 11/10/17 05:15 Problem List - Problems (1) UTI (urinary tract infection) Assessment/Plan: - Urine Culture-pending - Given Vancomycin for ?sepsis - Will treat with Levaquin - Monitor vitals - dc mayer - id consult Code(s): N39.0 - URINARY TRACT INFECTION, SITE NOT SPECIFIED Qualifiers: Urinary tract infection type: acute cystitis Hematuria presence: without hematuria Qualified Code(s): N30.00 - Acute cystitis without hematuria (2) Leukocytosis Assessment/Plan: - CLL - Repeat CBC - Appreciate Hematology Consult-- - Monitor vitals Code(s): D72.829 - ELEVATED WHITE BLOOD CELL COUNT, UNSPECIFIED Qualifiers: Leukocytosis type: unspecified Qualified Code(s): D72.829 - Elevated white blood cell count, unspecified (3) Anxiety and depression Assessment/Plan: - Continue home meds - FU with psych outpatient Code(s): F41.9 - ANXIETY DISORDER, UNSPECIFIED; F32.9 - MAJOR DEPRESSIVE DISORDER, SINGLE EPISODE, UNSPECIFIED (4) Diabetes Assessment/Plan: -bgm -endo Code(s): E11.9 - TYPE 2 DIABETES MELLITUS WITHOUT COMPLICATIONS Qualifiers: Diabetes mellitus type: type 2 (5) Chronic pain of multiple joints Assessment/Plan: (9) Cervical stenosis of spine/Degenerative disc disease - Continue home meds - FU with pain management outpatient -add dilaudid Code(s): M25.50 - PAIN IN UNSPECIFIED JOINT; G89.29 - OTHER CHRONIC PAIN (6) Multiple sclerosis Assessment/Plan: -home meds Code(s): G35 - MULTIPLE SCLEROSIS (7) Weakness Assessment/Plan: - Likely secondary to MS Flare vs Chronic Pain - Monitor CBC, BMP - Gentle IVF - Monitor vitals - Appreciate PT consult for conditioning Code(s): R53.1 - WEAKNESS (8) Spinal stenosis Assessment/Plan: -NS consult noted -await medical work up Code(s): M48.00 - SPINAL STENOSIS, SITE UNSPECIFIED (9) Seizure Assessment/Plan: CT head no change -Neuro noted-meds adjusted Code(s): R56.9 - UNSPECIFIED CONVULSIONS (10) CML (chronic myelocytic leukemia) Assessment/Plan: -d/w pt -oncology - Orders 11/14/17 10:00 Imatinib Mesylate [Gleevec (Restricted To Oncology) -] 400 mg PO DAILY Code(s): C92.10 - CHRONIC MYELOID LEUK, BCR/ABL-POSITIVE, NOT ACHIEVE REMIS (11) Thrombocytosis Assessment/Plan: -platelet pheresis Code(s): D47.3 - ESSENTIAL (HEMORRHAGIC) THROMBOCYTHEMIA
[2017-11-14] MEDS: SODIUM CHLORIDE 1,000 ML IV SCH ×2 (08:44→22:23)
[2017-11-14 09:26] LABS: EOS % 3.7 % (0-4.5); HEMATOCRIT 27.4 % (32.4-45.2); MEAN PLT VOLUME 8.7 fl (7.5-11.1); WHITE BLOOD COUNT 7.8 K/mm3 (4.0-10.0)
[2017-11-14 09:45] LABS: HEMOGLOBIN 8.9 GM/dL (10.7-15.3); LYMPH % 23.2 % (8-40); MCH 27.4 pg (25.7-33.7); MCHC 32.6 g/dl (32.0-36.0); MEAN CELL VOLUME 83.9 fl (80-96); MONO % 2.3 % (3.8-10.2); NEUT % 69.9 % (42.8-82.8); PLATELET COUNT 838 K/MM3 (134-434); RBC 3.27 M/mm3 (3.60-5.2); RDW 15.9 % (11.6-15.6)
[2017-11-14 09:46] LABS: BASO % 0.9 % (0-2.0)
[2017-11-14 09:59] LABS: CHLORIDE 106 mmol/L (98-107); POTASSIUM 4.7 mmol/L (3.5-5.1); SODIUM 139 mmol/L (136-145)
[2017-11-14] MEDS ORDERED: NYSTATIN POWDER 100,000 UNITS/GM - 15 GM TOPICAL POWDER TP SCH ×2 (10:00)
[2017-11-14] MEDS ORDERED: amLODIPine BESYLATE 2.5 MG TABLET (FP) PO SCH ×2 (10:00)
[2017-11-14] MEDS ORDERED: LOSARTAN POTASSIUM 50 MG TABLET (FP) PO SCH ×2 (10:00)
[2017-11-14] MEDS ORDERED: IMATINIB MESYLATE 100 MG TABLET PO SCH ×2 (10:00)
[2017-11-14] MEDS ORDERED: PANTOPRAZOLE 40 MG TABLET (FP) PO SCH ×2 (10:00)
[2017-11-14] MEDS ORDERED: clonazePAM 0.5 MG TABLET PO SCH ×2 (10:00→22:00)
[2017-11-14] MEDS ORDERED: HYDROXYUREA 500 MG CAPSULE PO SCH (10:00)
[2017-11-14] MEDS ORDERED: ALLOPURINOL 100 MG TABLET (FP) PO SCH ×2 (10:00)
[2017-11-14] MEDS ORDERED: FERROUS SO4 325 MG TABLET (FP) PO SCH ×2 (10:00)
[2017-11-14 10:36] LABS: ALBUMIN 2.8 g/dl (3.4-5.0); ALK PHOS 232 U/L (45-117); ANION GAP 8 (8-16); BILIRUBIN,TOTAL 0.5 mg/dL (0.2-1.0); BLOOD UREA NITROGEN 18 mg/dL (7-18); CALCIUM 8.4 mg/dL (8.5-10.1); CO2 25 mmol/L (21-32); CREATININE 1.1 mg/dL (0.55-1.02); GLUCOSE,RANDOM 132 mg/dL (74-106); LDH 281 U/L (84-246); SGOT/AST 44 U/L (15-37); SGPT/ALT 36 U/L (12-78)
[2017-11-14] MEDS: levETIRAcetam 500 MG/5 ML INJECTION VIAL IVPB SCH ×2 (10:36→22:22)
--- NOTE | 2017-11-14 13:30 | PN ---
Progress Note (short form) - Note Progress Note: Renal follow up for suspected ADELA vs. CKD Pt seen and examined at the bedside awake and alert pt complained of not feeling well and developed acute tonic clonic seizure SLIP PRESSER called, ativan given vitals stable Vital Signs Temperature 98.3 F 11/14/17 09:00 Pulse Rate 78 11/14/17 09:00 Respiratory Rate 20 11/14/17 09:00 Blood Pressure 113/86 11/14/17 09:00 O2 Sat by Pulse Oximetry (%) 96 11/14/17 09:00 Intake & Output 11/11/17 11/12/17 11/13/17 11/14/17 23:59 23:59 23:59 23:59 Intake Total 1627.5 2550 2490 1400 Output Total 1000 200 Balance 627.5 2350 2490 1400 Weight 89.4 kg 88.4 kg 88.989 kg NAD awake and alert RRR CTA soft, obese, NT/ND trace edema CBC, BMP 11/13/17 06:45 11/13/17 06:45 Current Medications Acetaminophen (Tylenol -) 650 mg PO Q4H PRN PRN Reason: FEVER Last Admin: 11/10/17 22:41 Dose: 650 mg Allopurinol (Zyloprim -) 300 mg PO DAILY [facility] Last Admin: 11/13/17 09:13 Dose: 300 mg Amlodipine Besylate (Norvasc -) 2.5 mg PO DAILY [facility] Last Admin: 11/13/17 09:13 Dose: 2.5 mg Calcium Gluconate (Calcium Gluconate 10% -) 2,000 mg IVPB ONCE PRN PRN Reason: tingling Clonazepam (Klonopin -) 0.5 mg PO BID [facility] Last Admin: 11/13/17 09:12 Dose: 0.5 mg Diphenhydramine HCl (Benadryl Injection -) 25 mg IVPUSH Q6H PRN PRN Reason: FOR ITCHING Last Admin: 11/13/17 15:03 Dose: 25 mg Docusate Sodium (Colace -) 300 mg PO HS [facility] Last Admin: 11/12/17 21:55 Dose: 300 mg Ferrous Sulfate (Feosol -) 325 mg PO DAILY [facility] Last Admin: 11/13/17 09:11 Dose: 325 mg Gabapentin (Neurontin -) 400 mg PO TID [facility] Last Admin: 11/13/17 14:07 Dose: 400 mg Heparin Sodium (Porcine) (Heparin -) 5,000 unit SQ TID [facility] Last Admin: 11/13/17 14:07 Dose: 5,000 unit Hydroxyurea (Hydrea -) 500 mg PO BID [facility] Last Admin: 11/13/17 09:14 Dose: 500 mg Propofol (Diprivan -) 1,000,000 mcg in 100 mls @ 2.637 mls/hr IVPB TITR [facility]; Protocol Last Admin: 11/12/17 23:41 Dose: Not Given Sodium Chloride (Normal Saline -) 1,000 mls @ 75 mls/hr IV ASDIR [facility] Last Admin: 11/13/17 10:25 Dose: Not Given Imatinib Mesylate (Gleevec (Restricted To Oncology) -) 400 mg PO DAILY [facility] Last Admin: 11/13/17 09:14 Dose: 400 mg Levetiracetam (Keppra Injection -) 1,000 mg IVPB BID [facility] Last Admin: 11/13/17 09:12 Dose: 1,000 mg Lorazepam (Ativan Injection -) 1 mg IVPUSH Q6H PRN PRN Reason: seizures Last Admin: 11/12/17 12:45 Dose: 1 mg Losartan Potassium (Cozaar -) 50 mg PO DAILY [facility] Last Admin: 11/13/17 09:11 Dose: 50 mg Patient's Own Medication: Avenox 30 Mcg 1 each NR Mo [facility] Last Admin: 11/12/17 16:41 Dose: 1 each Nystatin (Nystop Powder -) 1 applic TP DAILY [facility] Last Admin: 11/13/17 10:07 Dose: 1 applic Ondansetron HCl (Zofran Injection) 4 mg IVPUSH Q8H PRN PRN Reason: NAUSEA Last Admin: 11/06/17 21:41 Dose: 4 mg Pantoprazole Sodium (Protonix -) 40 mg PO DAILY [facility] Last Admin: 11/13/17 09:13 Dose: 40 mg Pramipexole Dihydrochloride (Mirapex -) 0.25 mg PO TID [facility] Last Admin: 11/13/17 14:08 Dose: 0.25 mg Senna (Senna -) 1 tab PO DAILY PRN PRN Reason: CONSTIPATION Last Admin: 11/05/17 23:36 Dose: 1 tab Zinc Acetate/Diphenhydramine (Benadryl 2% Cream) 1 applic TP BID [facility] Last Admin: 11/13/17 10:32 Dose: 1 applic 72 year old woman with PMhx of MS, Newly diagnosed CML with thrombocytosis/ leukocytosis with AMS and Cr of 1.3 #ADELA vs. CKD r/o tumor lysis syndrome #AMS/Seziures #CML Renal function stable at this time would continue to stablize pt s/p siezure if mental status is improved and able to tolerate oral diet can d/c IVF Trend Renal function and electrolytes Roman Santillan DO
--- NOTE | 2017-11-14 13:30 | RAPID ---
Physical Examination Vital Signs: Vital Signs Temperature 98.3 F 11/14/17 09:00 Pulse Rate 78 11/14/17 09:00 Respiratory Rate 20 11/14/17 09:00 Blood Pressure 113/86 11/14/17 09:00 O2 Sat by Pulse Oximetry (%) 96 11/14/17 09:00 Findings/Remarks: Rapid response called this afternoon. Team arrived to bedside, pt seen moving head vertically, with eyes fixed straight ahead. Unresponsive to vocal stimuli. Episode lasted for a few minutes before breaking. Pt received two doses of ativan 1mg each. Discussed with Dr. West; will increase Klonopin dose to 1mg PO TID to start tonight. Has already received ativan in meanwhile. Will start on paroxetine 10mg PO qd starting tomorrow. Will stop standing dose ativan. VS -158/62 -83 HR -100% sat on non-rebreather Will continue to monitor. Labs: CBC, BMP 11/14/17 08:50 11/14/17 08:50
[2017-11-14 15:34] LABS: EOS % 2.8 % (0-4.5); HEMATOCRIT 26.4 % (32.4-45.2); HEMOGLOBIN 8.6 GM/dL (10.7-15.3); LYMPH % 21.9 % (8-40); MCH 27.2 pg (25.7-33.7); MCHC 32.6 g/dl (32.0-36.0); MEAN CELL VOLUME 83.6 fl (80-96); MEAN PLT VOLUME 8.7 fl (7.5-11.1); MONO % 3.5 % (3.8-10.2); NEUT % 65.8 % (42.8-82.8); PLATELET COUNT 850 K/MM3 (134-434); RBC 3.15 M/mm3 (3.60-5.2); WHITE BLOOD COUNT 5.9 K/mm3 (4.0-10.0)
--- NOTE | 2017-11-14 15:54 | CONSULT ---
Consult - text type - Consultation Consultation Note: Called to see patient for pruritis on body. Patient not able to be examined except for arms which has a few excoriations and eczematous eruption as well as xerosis. Will reevaluate when patient is stable as she appears to be having siezures today and requires stabilization Please apply moisturizer and triamcinolone cream QD
[2017-11-14 15:59] LABS: ALBUMIN 2.7 g/dl (3.4-5.0); ANION GAP 7 (8-16); BLOOD UREA NITROGEN 18 mg/dL (7-18); CHLORIDE 109 mmol/L (98-107); CO2 26 mmol/L (21-32); GLUCOSE,RANDOM 117 mg/dL (74-106); MAGNESIUM 2.2 mg/dL (1.8-2.4); SODIUM 142 mmol/L (136-145)
[2017-11-14 16:02] LABS: ALK PHOS 225 U/L (45-117); BILIRUBIN,TOTAL 0.3 mg/dL (0.2-1.0); CREATININE 0.9 mg/dL (0.55-1.02); SGOT/AST 46 U/L (15-37); SGPT/ALT 38 U/L (12-78); TOT PROT 5.9 g/dl (6.4-8.2)
--- NOTE | 2017-11-14 16:27 | PN ---
Progress Note (short form) - Note Progress Note: pt seen and examined. events noted on NRB, at the time of encounter, unable to obtain ROS. Constitutional: Yes: in no Distress HENT: Yes: Atraumatic, Normocephalic Neck: Yes: Supple Cardiovascular: Yes: Regular Rate and Rhythm Respiratory: Yes: Regular Gastrointestinal: Yes: Soft, Abdomen, Obese, Tenderness Edema: Yes Neurological: Yes: AAOX3 skin: scratch aquino noted, no rashes noted Last Vital Signs Temp Pulse Resp BP Pulse Ox 98.4 F 76 18 146/62 100 11/13/17 02:00 11/13/17 08:00 11/13/17 08:00 11/13/17 08:00 11/13/17 09:00 CBC, BMP 11/13/17 06:45 11/13/17 06:45 Current Medications Generic Name Dose Route Start Last Admin Trade Name Freq PRN Reason Stop Dose Admin Acetaminophen 650 mg 11/10/17 21:19 11/10/17 22:41 Tylenol - PO 650 mg Q4H PRN Administration FEVER Allopurinol 300 mg 11/09/17 10:00 11/13/17 09:13 Zyloprim - PO 300 mg DAILY [facility] Administration Amlodipine Besylate 2.5 mg 11/05/17 10:00 11/13/17 09:13 Norvasc - PO 2.5 mg DAILY [facility] Administration Aspirin 81 mg 11/05/17 10:00 11/13/17 10:05 Ecotrin - PO Not Given DAILY [facility] Calcium Gluconate 2,000 mg 11/08/17 21:16 Calcium Gluconate 10% - IVPB ONCE PRN tingling Clonazepam 0.5 mg 11/06/17 22:00 11/13/17 09:12 Klonopin - PO 0.5 mg BID [facility] Administration Diphenhydramine HCl 25 mg 11/11/17 13:36 11/13/17 06:02 Benadryl Injection - IVPUSH 25 mg Q6H PRN Administration FOR ITCHING Docusate Sodium 300 mg 11/05/17 22:00 11/12/17 21:55 Colace - PO 300 mg HS [facility] Administration Ferrous Sulfate 325 mg 11/05/17 10:00 11/13/17 09:11 Feosol - PO 325 mg DAILY [facility] Administration Gabapentin 400 mg 11/05/17 06:00 11/13/17 06:01 Neurontin - PO 400 mg TID [facility] Administration Heparin Sodium (Porcine) 5,000 unit 11/12/17 14:00 11/13/17 06:01 Heparin - SQ 5,000 unit TID [facility] Administration Hydroxyurea 500 mg 11/12/17 11:00 11/13/17 09:14 Hydrea - PO 500 mg BID [facility] Administration Propofol 1,000,000 mcg in 100 mls @ 2.637 mls/hr 11/10/17 21:15 11/12/17 23: 41 Diprivan - IVPB Not Given TITR [facility] Protocol 5 MCG/KG/MIN Sodium Chloride 1,000 mls @ 75 mls/hr 11/11/17 10:25 11/13/17 04:28 Normal Saline - IV 75 mls/hr ASDIR [facility] Administration Imatinib Mesylate 400 mg 11/08/17 15:00 11/13/17 09:14 Gleevec (Restricted To Oncology) - PO 400 mg DAILY [facility] Administration Levetiracetam 1,000 mg 11/10/17 22:00 11/13/17 09:12 Keppra Injection - IVPB 1,000 mg BID [facility] Administration Lorazepam 1 mg 11/11/17 20:12 11/12/17 12:45 Ativan Injection - IVPUSH 1 mg Q6H PRN Administration seizures Losartan Potassium 50 mg 11/05/17 10:00 11/13/17 09:11 Cozaar - PO 50 mg DAILY [facility] Administration Morphine Sulfate 4 mg 11/11/17 20:10 11/13/17 08:14 Morphine Sulfate IVPUSH 4 mg Q4H PRN Administration PAIN LEVEL 7 - 10 Patient's Own 1 each 11/12/17 15:15 11/12/17 16:41 Medication: Avenox NR 1 each 30 Mcg Mo [facility] Administration Nystatin 1 applic 11/08/17 12:00 11/13/17 10:07 Nystop Powder - TP 1 applic DAILY [facility] Administration Ondansetron HCl 4 mg 11/06/17 15:46 11/06/17 21:41 Zofran Injection IVPUSH 4 mg Q8H PRN Administration NAUSEA Pantoprazole Sodium 40 mg 11/05/17 10:00 11/13/17 09:13 Protonix - PO 40 mg DAILY [facility] Administration Pramipexole Dihydrochloride 0.25 mg 11/08/17 14:00 11/13/17 06:01 Mirapex - PO 0.25 mg TID [facility] Administration Senna 1 tab 11/05/17 01:06 11/05/17 23:36 Senna - PO 1 tab DAILY PRN Administration CONSTIPATION Zinc Acetate/Diphenhydramine 1 applic 11/11/17 22:00 11/13/17 00:04 Benadryl 2% Cream TP 1 applic BID [facility] Administration Chronic Myeloid Leukemia--- BCR ABL positive (Translocation t9;22) -overall heme parameters improving. - c/w gleevac present doses -stopped hydrea -c/w atarax -normal VW ag levels -c/w DVT ppx. -appreiate Derm c/s Seizures -unknown etiology -neuro f/u Elevated RA/+HALIMA Appreciate Rheum Problem List - Problems (1) Leukocytosis Code(s): D72.829 - ELEVATED WHITE BLOOD CELL COUNT, UNSPECIFIED Qualifiers: Leukocytosis type: unspecified Qualified Code(s): D72.829 - Elevated white blood cell count, unspecified (2) Thrombocytosis Code(s): D47.3 - ESSENTIAL (HEMORRHAGIC) THROMBOCYTHEMIA (3) Chronic pain of multiple joints Code(s): M25.50 - PAIN IN UNSPECIFIED JOINT; G89.29 - OTHER CHRONIC PAIN
--- NOTE | 2017-11-14 16:53 | PN ---
Progress Note (short form) - Note Progress Note: Staff report that patient has been reporting increased anxiety.. Had three ? seizures today// Plan : increase Paxil 20mg po od.
--- NOTE | 2017-11-14 19:59 | RAPID ---
Physical Examination Vital Signs: Vital Signs Temperature 97.4 F L 11/14/17 18:00 Pulse Rate 68 11/14/17 18:00 Respiratory Rate 20 11/14/17 18:00 Blood Pressure 142/59 11/14/17 18:00 O2 Sat by Pulse Oximetry (%) 96 11/14/17 09:00 Constitutional: Yes: Well Nourished Eyes: Yes: WNL HENT: Yes: WNL, Atraumatic, Normocephalic Neck: Yes: WNL, Supple, Trachea Midline Cardiovascular: Yes: Regular Rate and Rhythm Respiratory: Yes: Regular Extremities: Yes: WNL Neurological: Yes: Unresponsive, Other (Sporadic head jerking movements noted with no lateralizing pattern) Labs: CBC, BMP 11/14/17 14:20 11/14/17 14:20 Rapid Response - Rapid Response Assessment: RR called due to possible seizure activity noted by nursing staff. Pt examined at bedside, with intermittent random head jerking with no temporal consistency or stereotyped pattern. Pt non-responsive to voice, however protecting airway. Pt appears reactive to aggressive visual confrontation and corneal reflex testing, closing eyes with evidence of possible conscious guarding. Pt with three prior episodes of suspected seizures this AM, initially receiving one dose Ativan 2mg, however staff advised against any further medication, as likely pseudoseizures per Dr. Salamanca. Pt seen by Dr. Salamanca today, who recommended increasing paxil. Pt taking Keppra 1g BID, starting 7 days ago for possible similar "seizure activity". Pt satting 100% on NRB, transfer to ICU for further monitoring. Of note, pt currently admitted due to leukocystosis (up to 71K), with current work-up for leukemia. Recent MRI head notable for possible calvarium and cervical spine marrow infiltration suspicious for neoplastic process. Vitals: 130/101, Rate 74, 100% on NRB, RR 20 PE as noted above Recommendations: - Neuro consult. Will place call to Dr. West. - Do not give ativan per primary team recommendations - Transfer to ICU for further monitoring - If continues "seizure activity", consider additional imaging and CBC, BMP. If vitals unstable and overwhelming evidence of status epilepticus, give Ativan IV.
[2017-11-14] MEDS ORDERED: clonazePAM 0.5 MG TABLET PO ONE (20:13)
[2017-11-14] MEDS: clonazePAM 0.5 MG TABLET PO SCH (21:00)
[2017-11-14] MEDS ORDERED: DOCUSATE SODIUM 100 MG CAPSULE (FP) PO SCH (22:00)
--- NOTE | 2017-11-14 22:20 | CONSULT ---
Consult Consult Specialty:: Pulm/CCM Reason for Consultation:: Possible seizures - History of Present Illness Chief Complaint: Generalized body aches History of Present Illness: 72 kamilla with PMHx of OA, CVA, CKD, MS , fibromyalgia who presented to ED from doctors office 11/04 for work-up of Leukocytosis WBC 40. Pt hospital course was significant for newly diagnosed CML s/p plasmapheresis in ICU. Also with generalized body pain and seizure activty. Was intubated briefly for airway protection 2/2 possible oversedation. She was transferred to floor yesterday. Today a rapid response was called for genrarlized flailing of arms and legs and head movemntsuspicious for psudosiezures. Ativan 1mg given. She was transferred to ICU for monitoring. In ICU anxious, HD stable, oriented x 3. C/o generalized body pain 03/20. Seen by Dr West who recommended treatment with oxycodone, Klonopin and pramipexole. - History Source History Provided By: Medical Record - Past Medical History GLOBAL RECRUITER: Yes: 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 Cardio/Vascular: Yes: HTN Pulmonary: Yes: Asthma, COPD Gastrointestinal: Yes: GERD (using walker at home ) Renal/: Yes: Renal Inusuff ...: No Psych: Yes: Depression Musculoskeletal: Yes: Osteoarthritis, Other (DDD) Rheumatology: Yes: Rheumatoid Arthritis Endocrine: Yes: Diabetes Mellitus Additional Medical History: as in HPI, morbidly obese - Past Surgical History Past Surgical History: Yes: Hysterectomy, Joint Replacement, Cholecystectomy - Alcohol/Substance Use Hx Alcohol Use: No History of Substance Use: reports: None - Smoking History Smoking history: Former smoker Have you smoked in the past 12 months: No Aproximately how many cigarettes per day: 0 If you are a former smoker, when did you quit?: many years ago - Social History Usual Living Arrangement: With Significant Other ADL: Independent History of Recent Travel: No Home Medications - Allergies Allergies/Adverse Reactions: Allergies Allergy/AdvReac Type Severity Reaction Status Date / Time Sulfa (Sulfonamide Allergy Severe Hives Verified 02/08/17 05:10 Antibiotics) - Home Medications Home Medications: Ambulatory Orders Amlodipine Besylate [Norvasc -] 2.5 mg PO DAILY 09/03/15 Ergocalciferol (Vitamin D2) [Drisdol] 50,000 units PO WEEKLY 09/03/15 Ferrous Sulfate [Feosol] 325 mg PO DAILY 09/03/15 Interferon Beta-1A [Avonex] 30 mcg IM WEEKLY 09/03/15 Sennosides [Senna] 8.6 mg PO DAILY PRN 09/03/15 Aspirin Coated [Ecotrin -] 81 mg PO DAILY #30 tablet.ec 09/10/15 Docusate Sodium [Colace -] 300 mg PO HS #30 capsule 09/10/15 Furosemide [Lasix -] 20 mg PO DAILY #30 tablet 09/10/15 Losartan Potassium [Cozaar -] 50 mg PO DAILY #30 tablet 09/10/15 Magnesium Oxide 400 mg PO BID #7 tablet 09/10/15 traZODone HCL [Desyrel -] 100 mg PO HS #30 tablet 09/10/15 Allopurinol [Zyloprim -] 100 mg PO DAILY #7 tablet MDD 1 02/13/17 Esomeprazole Magnesium [Nexium 24Hr] 40 mg PO DAILY 05/08/17 Tizanidine HCl 4 mg PO TID PRN #90 tablet 08/02/17 Gabapentin [Neurontin -] 400 mg PO Q8H #90 capsule 10/01/17 Oxycodone HCl/Acetaminophen [Percocet 10-325 mg Tablet] 1 each PO Q8H PRN #90 tablet MDD 3 10/29/17 Diphenhydramine HCl [Benadryl Capsule -] 25 mg PO BID PRN 11/06/17 clonazePAM [Klonopin -] 0.5 mg PO BID 11/06/17 Family Disease History - Family Disease History Family Disease History: [place]: Mother (, cancer), Other: Father ( - does not know why), Brother (pain - arthritis), Sister (four sisters - little contact), Son (one living healthy), Daughter (one living healthy) Review of Systems - Review of Systems Constitutional: reports: Malaise Neurological: reports: Other (generalized pain) Physical Exam Vital Signs: Vital Signs Temperature 97.4 F L 11/14/17 18:00 Pulse Rate 68 11/14/17 18:00 Respiratory Rate 20 11/14/17 18:00 Blood Pressure 142/59 11/14/17 18:00 O2 Sat by Pulse Oximetry (%) 96 11/14/17 09:00 Constitutional: Yes: Anxious Eyes: Yes: WNL HENT: Yes: Atraumatic, Normocephalic Neck: Yes: Trachea Midline Cardiovascular: Yes: Regular Rate and Rhythm, S1, S2 Respiratory: Yes: CTA Bilaterally Gastrointestinal: Yes: Normal Bowel Sounds, Soft Extremities: Yes: WNL Edema: Yes Edema: LLE: Trace, RLE: Trace Peripheral Pulses WNL: Yes Integumentary: Yes: WNL Psychiatric: Yes: Other (anxious) Labs: CBC, BMP 11/14/17 14:20 11/14/17 14:20 CBC,CMP WBC 5.9 K/mm3 (4.0-10.0) 11/14/17 14:20 RBC 3.15 M/mm3 (3.60-5.2) L 11/14/17 14:20 Hgb 8.6 GM/dL (10.7-15.3) L 11/14/17 14:20 Hct 26.4 % (32.4-45.2) L 11/14/17 14:20 MCV 83.6 fl (80-96) 11/14/17 14:20 MCH 27.2 pg (25.7-33.7) 11/14/17 14:20 MCHC 32.6 g/dl (32.0-36.0) 11/14/17 14:20 RDW 16.0 % (11.6-15.6) H 11/14/17 14:20 Plt Count 850 K/MM3 (134-434) H 11/14/17 14:20 MPV 8.7 fl (7.5-11.1) 11/14/17 14:20 Absolute Neuts (auto) 3.9 # 11/14/17 14:20 Total Counted 100 11/07/17 20:25 Neutrophils % 65.8 % (42.8-82.8) 11/14/17 14:20 Neutrophils % (Manual) 67.7 % (42.8-82.8) 11/11/17 05:00 Band Neutrophils % 10.1 % 11/11/17 05:00 Lymphocytes % 21.9 % (8-40) 11/14/17 14:20 Lymphocytes % (Manual) 11.1 % (8-40) D 11/11/17 05:00 Monocytes % 3.5 % (3.8-10.2) L 11/14/17 14:20 Monocytes % (Manual) 3 % (3.8-10.2) L D 11/11/17 05:00 Eosinophils % 2.8 % (0-4.5) 11/14/17 14:20 Eosinophils % (Manual) 1.0 % (0-4.5) 11/11/17 05:00 Basophils % 6.0 % (0-2.0) H* D 11/14/17 14:20 Basophils % (Manual) 4.1 % (0-2.0) H 11/11/17 05:00 Myelocytes % (Man) 2 % (0-2) D 11/11/17 05:00 Promyelocytes % (Man) 1 % (0-2) D 11/11/17 05:00 Blast Cells % (Manual) 0 % (0-0) 11/11/17 05:00 Nucleated RBC % 0 % (0-0) 11/14/17 14:20 Metamyelocytes 0 % (0-2) D 11/11/17 05:00 Differential Comment 11/07/17 20:25 Smudge Cells Few 11/05/17 09:03 Hypochromia 2+ 11/11/17 05:00 Platelet Estimate Increased 11/11/17 05:00 Platelet Comment Few giant plts 11/07/17 20:25 Polychromasia 1+ 11/04/17 20:00 Poikilocytosis 1+ 11/04/17 20:00 Anisocytosis 1` 11/05/17 09:03 Macrocytosis 1+ 11/04/17 20:00 Tear Drop Cells 1+ 11/11/17 05:00 Ovalocytes 1+ 11/04/17 20:00 ESR 26 mm/hr (0-30) 11/09/17 05:50 Retic Count 1.55 % (0.5-1.5) H 11/06/17 06:43 Sodium 142 mmol/L (136-145) 11/14/17 14:20 Potassium 5.0 mmol/L (3.5-5.1) 11/14/17 14:20 Chloride 109 mmol/L (98-107) H 11/14/17 14:20 Carbon Dioxide 26 mmol/L (21-32) 11/14/17 14:20 Anion Gap 7 (8-16) L 11/14/17 14:20 BUN 18 mg/dL (7-18) 11/14/17 14:20 Creatinine 0.9 mg/dL (0.55-1.02) 11/14/17 14:20 Creat Clearance w eGFR > 60 (>60) 11/14/17 14:20 POC Glucometer 115 UNITS (80-120) 11/14/17 19:23 Random Glucose 117 mg/dL (74-106) H 11/14/17 14:20 Lactic Acid 0.8 mmol/L (0.0-2.0) 11/08/17 01:00 Uric Acid 3.9 mg/dL (2.6-7.2) 11/13/17 06:45 Calcium 8.0 mg/dL (8.5-10.1) L 11/14/17 14:20 Phosphorus 4.4 mg/dL (2.5-4.9) 11/13/17 06:45 Magnesium 2.2 mg/dL (1.8-2.4) 11/14/17 14:20 Iron 45 ug/dL (27-139) 11/06/17 06:43 TIBC 247 ug/dL (250-450) L 11/06/17 06:43 Iron Saturation 18 % (15-55) 11/06/17 06:43 Erythropoietin 28.2 mIU/mL (2.6-18.5) H 11/07/17 06:00 Ferritin 103.088 ng/ml (6.9-282.5) 11/06/17 06:43 Total Bilirubin 0.3 mg/dL (0.2-1.0) D 11/14/17 14:20 AST 46 U/L (15-37) H 11/14/17 14:20 ALT 38 U/L (12-78) 11/14/17 14:20 Alkaline Phosphatase 225 U/L (45-117) H 11/14/17 14:20 LD Total 281 U/L (84-246) H 11/14/17 08:50 Creatine Kinase 114 IU/L (26-192) 11/07/17 20:35 Troponin I < 0.02 ng/ml (0.00-0.05) 11/07/17 20:35 C-Reactive Protein 0.5 MG/DL (0.00-0.3) H 11/06/17 06:43 Total Protein 5.9 g/dl (6.4-8.2) L 11/14/17 14:20 Total Protein (PEP) 5.6 g/dL (6.0-8.5) L 11/09/17 05:50 Albumin 2.7 g/dl (3.4-5.0) L 11/14/17 14:20 Albumin (PEP) 2.8 gm/dl (2.9-4.4) L 11/09/17 05:50 Globulin 2.8 g/dL (2.2-3.9) 11/09/17 05:50 Albumin/Globulin Ratio 1.0 (0.7-1.7) 11/09/17 05:50 Beta Globulins 0.7 gm/dL (0.7-1.3) 11/09/17 05:50 Current Medications Acetaminophen (Tylenol -) 650 mg PO Q4H PRN PRN Reason: FEVER Allopurinol (Zyloprim -) 300 mg PO DAILY [facility] Amlodipine Besylate (Norvasc -) 2.5 mg PO DAILY [facility] Calcium Gluconate (Calcium Gluconate 10% -) 2,000 mg IVPB ONCE PRN PRN Reason: tingling Chlorhexidine Gluconate (Hibiclens For Decolonization -) 1 applic TP HS [facility] Last Admin: 11/14/17 22:31 Dose: 1 applic Clonazepam (Klonopin -) 1 mg PO TID [facility] Last Admin: 11/14/17 21:00 Dose: 1 mg Docusate Sodium (Colace -) 300 mg PO HS [facility] Ferrous Sulfate (Feosol -) 325 mg PO DAILY [facility] Gabapentin (Neurontin -) 400 mg PO TID [facility] Heparin Sodium (Porcine) (Heparin -) 5,000 unit SQ TID [facility] Sodium Chloride (Normal Saline -) 1,000 mls @ 75 mls/hr IV ASDIR [facility] Last Admin: 11/14/17 22:30 Dose: Not Given Imatinib Mesylate (Gleevec (Restricted To Oncology) -) 400 mg PO DAILY [facility] Levetiracetam (Keppra Injection -) 1,000 mg IVPB BID [facility] Losartan Potassium (Cozaar -) 50 mg PO DAILY [facility] Mupirocin (Bactroban Ointment (For Decolonization) -) 1 applic NS BID [facility] Stop: 11/19/17 22:24 Last Admin: 11/14/17 22:32 Dose: 1 applic Non-Formulary Medication (Patient's Own Med) 1 each NR Mo [facility] Nystatin (Nystop Powder -) 1 applic TP DAILY [facility] Oxycodone HCl (Roxicodone -) 7.5 mg PO Q6HPO [facility] Last Admin: 11/14/17 22:58 Dose: Not Given Pantoprazole Sodium (Protonix -) 40 mg PO DAILY [facility] Pramipexole Dihydrochloride (Mirapex -) 0.5 mg PO TID [facility] Last Admin: 11/14/17 22:58 Dose: Not Given Senna (Senna -) 1 tab PO DAILY PRN PRN Reason: CONSTIPATION Triamcinolone Acetonide (Aristocort 0.025% Ointment -) 1 applic TP DAILY [facility] Problem List - Problems (1) CML (chronic myelocytic leukemia) Code(s): C92.10 - CHRONIC MYELOID LEUK, BCR/ABL-POSITIVE, NOT ACHIEVE REMIS (2) Fibromyalgia Code(s): M79.7 - FIBROMYALGIA (3) Hypothyroid Code(s): E03.9 - HYPOTHYROIDISM, UNSPECIFIED (4) Spinal stenosis Code(s): M48.00 - SPINAL STENOSIS, SITE UNSPECIFIED (5) Thrombocytosis Code(s): D47.3 - ESSENTIAL (HEMORRHAGIC) THROMBOCYTHEMIA Assessment/Plan 72 kamilla with PMHx of OA, CVA, CKD, MS , fibromyalgia transferred to ICU after possible seizures on the floor. Seen by neurology. Thought to be pseudoseizures. recommending treatment for anxiety and RLS. Plan: -Pain and anxiety management with oxycodone, Klonopin and Pramipexole -EEG -Continue Keppra -Cont Gabapentin -Cont O2 support as needed -Cont anti-hypertensives -PPI and DVT prophylaxis REGINA Esparza CC time 35mins
[2017-11-14] MEDS ORDERED: CHLORHEXIDINE GLUCONATE 4% CLEANSER FOR DECOLONIZATION TP SCH (22:25)
[2017-11-14] MEDS ORDERED: SENNOSIDES 8.6MG TABLET (FP) PO PRN (22:25)
[2017-11-14] MEDS ORDERED: SODIUM CHLORIDE 1,000 ML IV SCH (22:25)
[2017-11-14] MEDS ORDERED: ACETAMINOPHEN 325 MG TABLET (FP) PO PRN (22:25)
[2017-11-14] MEDS ORDERED: CALCIUM GLUCONATE 10% - 1,000 MG/10 ML VIAL IVPB PRN (22:25)
[2017-11-14] MEDS: MUPIROCIN 2% TOPICAL OINTMENT FOR DECOLONIZATION NS SCH (22:32)
--- NOTE | 2017-11-14 22:44 | PN ---
Progress Note (short form) - Note Progress Note: NEUROLOGY FOLLOW-UP: Events reviewed and discussed with MDs, RNs, patient and her . Chronic pains due to severe restless limbs syndrome. Improved by movement and shaking. Increasingly anxious. Recurrent episodes of shaking all 4's without LOC or post-ictal confusion. Exam: Unchanged. Diffusely tender to the touch. Moves all fours symmetrically. CN's II-XII: Normal. Repeat MRI reviewed: No change from the prior study. 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 IMP: Severe RLS. Anxiety Pseudoseizures. SUGGEST: Oxycodone 7.5 mg q 8 hrs Gabapentine 400 mg q 8 hrs Pramipexole .5 mg q 8 hrs Clonazepam 1 mg q 8 hrs Continue levetiracetam 1 gm q 12hrs for now. D/C Paroxetine, benadryl, atarax which will all increase pain from RLS. Check Fe++, TIBC, Ferrritin-- if very low may need IV Fe++ Rx Thank you very much, Donald West MD
[2017-11-14] MEDS ORDERED: oxyCODONE HCL 5 MG TABLET ONE (22:47)
[2017-11-14] MEDS: oxyCODONE HCL 5 MG TABLET PO SCH ×2 (22:57→22:58)
[2017-11-14] MEDS: PRAMIPEXOLE DIHYDROCHLORIDE 0.5 MG TABLET PO SCH (22:58)
--- NOTE | 2017-11-15 00:10 | PN ---
Progress Note, Physician Chief Complaint: seizure activity on medical floor,transferred to icu for observation History of Present Illness: 72yfemale,cml,dm,admitted with acute thrombocytosis,and cml,has had several episode of seizures,transferred to icu on sedation for seizure - Current Medication List Current Medications: Active Medications Acetaminophen (Tylenol -) 650 mg PO Q4H PRN PRN Reason: FEVER Allopurinol (Zyloprim -) 300 mg PO DAILY [facility] Amlodipine Besylate (Norvasc -) 2.5 mg PO DAILY [facility] Calcium Gluconate (Calcium Gluconate 10% -) 2,000 mg IVPB ONCE PRN PRN Reason: tingling Chlorhexidine Gluconate (Hibiclens For Decolonization -) 1 applic TP HS [facility] Last Admin: 11/14/17 22:31 Dose: 1 applic Clonazepam (Klonopin -) 1 mg PO TID [facility] Last Admin: 11/14/17 21:00 Dose: 1 mg Docusate Sodium (Colace -) 300 mg PO HS [facility] Ferrous Sulfate (Feosol -) 325 mg PO DAILY [facility] Gabapentin (Neurontin -) 400 mg PO TID [facility] Heparin Sodium (Porcine) (Heparin -) 5,000 unit SQ TID [facility] Sodium Chloride (Normal Saline -) 1,000 mls @ 75 mls/hr IV ASDIR [facility] Last Admin: 11/14/17 22:30 Dose: Not Given Imatinib Mesylate (Gleevec (Restricted To Oncology) -) 400 mg PO DAILY [facility] Levetiracetam (Keppra Injection -) 1,000 mg IVPB BID [facility] Losartan Potassium (Cozaar -) 50 mg PO DAILY [facility] Mupirocin (Bactroban Ointment (For Decolonization) -) 1 applic NS BID [facility] Stop: 11/19/17 22:24 Last Admin: 11/14/17 22:32 Dose: 1 applic Non-Formulary Medication (Patient's Own Med) 1 each NR Mo [facility] Nystatin (Nystop Powder -) 1 applic TP DAILY [facility] Oxycodone HCl (Roxicodone -) 7.5 mg PO Q6HPO [facility] Last Admin: 11/14/17 22:58 Dose: Not Given Pantoprazole Sodium (Protonix -) 40 mg PO DAILY [facility] Pramipexole Dihydrochloride (Mirapex -) 0.5 mg PO TID [facility] Last Admin: 11/14/17 22:58 Dose: Not Given Senna (Senna -) 1 tab PO DAILY PRN PRN Reason: CONSTIPATION Triamcinolone Acetonide (Aristocort 0.025% Ointment -) 1 applic TP DAILY [facility] - Objective Vital Signs: Vital Signs Temperature 98.4 F 11/14/17 22:00 Pulse Rate 70 11/15/17 00:00 Respiratory Rate 24 11/15/17 00:00 Blood Pressure 120/70 11/15/17 00:00 O2 Sat by Pulse Oximetry (%) 96 11/14/17 20:00 Constitutional: Yes: Calm Eyes: Yes: EOM Intact HENT: Yes: Normocephalic Neck: Yes: Trachea Midline Cardiovascular: Yes: Regular Rate and Rhythm Respiratory: Yes: CTA Bilaterally Gastrointestinal: Yes: Normal Bowel Sounds ...Rectal Exam: Yes: Deferred Genitourinary: Yes: WNL Musculoskeletal: Yes: Joint Stiffness, Muscle Weakness Extremities: Yes: WNL Edema: No Neurological: Yes: Alert, Lethargy, Weakness Labs: CBC, BMP 11/14/17 14:20 11/14/17 14:20 INR, PTT INR 1.16 (0.82-1.09) H 11/13/17 06:45 Fibrinogen 422.0 mg/dL (238-498) 11/10/17 05:15 Problem List - Problems (1) Hypothyroid Code(s): E03.9 - HYPOTHYROIDISM, UNSPECIFIED (2) Spinal stenosis Code(s): M48.00 - SPINAL STENOSIS, SITE UNSPECIFIED (3) Weakness Code(s): R53.1 - WEAKNESS (4) Chronic pain of multiple joints Code(s): M25.50 - PAIN IN UNSPECIFIED JOINT; G89.29 - OTHER CHRONIC PAIN (5) Chronic use of opiate for therapeutic purpose Code(s): 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 Assessment/Plan Current Active Problems Abnormal antibody titer (Acute) CML (chronic myelocytic leukemia) (Acute) Fibromyalgia (Acute) Hypothyroid (Acute) Left upper quadrant pain (Acute) Seizure (Acute) Spinal stenosis (Acute) Thrombocytosis (Acute) Thrombocytosis (Acute) UTI (urinary tract infection) (Acute) Weakness (Acute) Chronic pain of multiple joints (Chronic) Chronic renal insufficiency, stage III (moderate) (Chronic) Chronic use of opiate for therapeutic purpose (Chronic) Degenerative disc disease (Chronic) Diabetes mellitus with renal manifestations, controlled (Chronic) Leukocytosis (Chronic) Abnormal Lab Results 11/14/17 11/14/17 11/14/17 08:50 08:50 14:20 RBC 3.27 L 3.15 L Hgb 8.9 L 8.6 L Hct 27.4 L 26.4 L RDW 15.9 H 16.0 H Plt Count 838 H 850 H Monocytes % 2.3 L 3.5 L Basophils % 6.0 H* D Chloride Anion Gap Creatinine 1.1 H Random Glucose 132 H Calcium 8.4 L AST 44 H Alkaline Phosphatase 232 H LD Total 281 H Total Protein 6.0 L Albumin 2.8 L 11/14/17 14:20 RBC Hgb Hct RDW Plt Count Monocytes % Basophils % Chloride 109 H Anion Gap 7 L Creatinine Random Glucose 117 H Calcium 8.0 L AST 46 H Alkaline Phosphatase 225 H LD Total Total Protein 5.9 L Albumin 2.7 L Laboratory Results - last 24 hr 11/14/17 11/14/17 11/14/17 08:50 08:50 13:25 WBC 7.8 D RBC 3.27 L Hgb 8.9 L Hct 27.4 L MCV 83.9 MCH 27.4 MCHC 32.6 RDW 15.9 H Plt Count 838 H MPV 8.7 Absolute Neuts (auto) 5.5 Neutrophils % 69.9 Lymphocytes % 23.2 D Monocytes % 2.3 L Eosinophils % 3.7 Basophils % 0.9 Nucleated RBC % 0 Sodium 139 Potassium 4.7 Chloride 106 Carbon Dioxide 25 Anion Gap 8 BUN 18 Creatinine 1.1 H Creat Clearance w eGFR 48.82 POC Glucometer 135 Random Glucose 132 H Calcium 8.4 L Magnesium Total Bilirubin 0.5 AST 44 H ALT 36 Alkaline Phosphatase 232 H LD Total 281 H Total Protein 6.0 L Albumin 2.8 L 11/14/17 11/14/17 11/14/17 14:20 14:20 19:23 WBC 5.9 RBC 3.15 L Hgb 8.6 L Hct 26.4 L MCV 83.6 MCH 27.2 MCHC 32.6 RDW 16.0 H Plt Count 850 H MPV 8.7 Absolute Neuts (auto) 3.9 Neutrophils % 65.8 Lymphocytes % 21.9 Monocytes % 3.5 L Eosinophils % 2.8 Basophils % 6.0 H* D Nucleated RBC % 0 Sodium 142 Potassium 5.0 Chloride 109 H Carbon Dioxide 26 Anion Gap 7 L BUN 18 Creatinine 0.9 Creat Clearance w eGFR > 60 POC Glucometer 115 Random Glucose 117 H Calcium 8.0 L Magnesium 2.2 Total Bilirubin 0.3 D AST 46 H ALT 38 Alkaline Phosphatase 225 H LD Total Total Protein 5.9 L Albumin 2.7 L plan: bgm qid novolog scale Current Medications Generic Name Dose Route Start Last Admin Trade Name Freq PRN Reason Stop Dose Admin Acetaminophen 650 mg 11/14/17 22:25 Tylenol - PO Q4H PRN FEVER Allopurinol 300 mg 11/15/17 10:00 Zyloprim - PO DAILY [facility] Amlodipine Besylate 2.5 mg 11/15/17 10:00 Norvasc - PO DAILY [facility] Calcium Gluconate 2,000 mg 11/14/17 22:25 Calcium Gluconate 10% - IVPB ONCE PRN tingling Chlorhexidine Gluconate 1 applic 11/14/17 22:25 11/14/17 22:31 Hibiclens For Decolonization - TP 1 applic HS [facility] Administration Clonazepam 1 mg 11/14/17 20:30 11/14/17 21:00 Klonopin - PO 1 mg TID [facility] Administration Docusate Sodium 300 mg 11/15/17 22:00 Colace - PO HS [facility] Ferrous Sulfate 325 mg 11/15/17 10:00 Feosol - PO DAILY [facility] Gabapentin 400 mg 11/15/17 06:00 Neurontin - PO TID [facility] Heparin Sodium (Porcine) 5,000 unit 11/15/17 06:00 Heparin - SQ TID [facility] Sodium Chloride 1,000 mls @ 75 mls/hr 11/14/17 22:25 11/14/17 22:30 Normal Saline - IV Not Given ASDIR [facility] Imatinib Mesylate 400 mg 11/15/17 10:00 Gleevec (Restricted To Oncology) - PO DAILY [facility] Levetiracetam 1,000 mg 11/15/17 10:00 Keppra Injection - IVPB BID [facility] Losartan Potassium 50 mg 11/15/17 10:00 Cozaar - PO DAILY [facility] Mupirocin 1 applic 11/14/17 22:25 11/14/17 22:32 Bactroban Ointment (For Decolonization) - NS 11/19/17 22:24 1 applic BID [facility] Administration Non-Formulary Medication 1 each 11/19/17 15:15 Patient's Own Med NR Mo [facility] Nystatin 1 applic 11/15/17 10:00 Nystop Powder - TP DAILY [facility] Oxycodone HCl 7.5 mg 11/14/17 22:46 11/14/17 22:58 Roxicodone - PO Not Given Q6HPO [facility] Pantoprazole Sodium 40 mg 11/15/17 10:00 Protonix - PO DAILY [facility] Pramipexole Dihydrochloride 0.5 mg 11/14/17 22:45 11/14/17 22:58 Mirapex - PO Not Given TID [facility] Senna 1 tab 11/14/17 22:25 Senna - PO DAILY PRN [facility] Triamcinolone Acetonide 1 applic 11/15/17 10:00 Aristocort 0.025% Ointment - TP DAILY [facility] Laboratory Tests 11/07/17 11/08/17 11/14/17 20:16 17:05 13:25 POC Glucometer 247 127 135 11/14/17 19:23 POC Glucometer 115 continue anti seizure meds repeat cbc and cmp
[2017-11-15] MEDS: oxyCODONE HCL 5 MG TABLET PO SCH (05:30)
[2017-11-15] MEDS ORDERED: PRAMIPEXOLE DIHYDROCHLORIDE 0.25 MG TABLET PO SCH (06:00)
[2017-11-15] MEDS ORDERED: GABAPENTIN 400 MG CAPSULE (FP) PO SCH (06:00)
[2017-11-15] MEDS ORDERED: hydrOXYzine HCL 10 MG TABLET PO SCH (06:00)
[2017-11-15] MEDS: HEPARIN NA (PORCINE) 5,000 UNITS/ML 1ML VIAL SQ SCH ×3 (06:29→21:38)
[2017-11-15] MEDS: clonazePAM 0.5 MG TABLET PO SCH ×4 (06:30→21:38)
[2017-11-15] MEDS: PRAMIPEXOLE DIHYDROCHLORIDE 0.5 MG TABLET PO SCH ×4 (06:31→21:40)
[2017-11-15] MEDS ORDERED: CALAMINE 8% TOPICAL LOTION 177 ML BOTTLE TP PRN ×2 (08:03→18:36)
[2017-11-15 08:44] LABS: HEMATOCRIT 26.3 % (32.4-45.2); HEMOGLOBIN 8.4 GM/dL (10.7-15.3); MCH 26.7 pg (25.7-33.7); MCHC 31.8 g/dl (32.0-36.0); MEAN PLT VOLUME 8.6 fl (7.5-11.1); PLATELET COUNT 895 K/MM3 (134-434); RBC 3.13 M/mm3 (3.60-5.2); RDW 16.1 % (11.6-15.6); WHITE BLOOD COUNT 5.3 K/mm3 (4.0-10.0)
[2017-11-15] MEDS ORDERED: PT OWN MED DRAWER 7, Y5N ONE ×3 (08:56→20:18)
[2017-11-15 09:09] LABS: ALBUMIN 2.7 g/dl (3.4-5.0); ANION GAP 7 (8-16); BILIRUBIN,TOTAL 0.4 mg/dL (0.2-1.0); BLOOD UREA NITROGEN 21 mg/dL (7-18); CALCIUM 8.3 mg/dL (8.5-10.1); CHLORIDE 108 mmol/L (98-107); CO2 26 mmol/L (21-32); CREATININE 0.9 mg/dL (0.55-1.02); GLUCOSE,RANDOM 85 mg/dL (74-106); POTASSIUM 4.8 mmol/L (3.5-5.1); SGOT/AST 49 U/L (15-37); SGPT/ALT 40 U/L (12-78); SODIUM 141 mmol/L (136-145); TOT PROT 5.9 g/dl (6.4-8.2)
[2017-11-15 09:12] LABS: PHOSPHOROUS 3.9 mg/dL (2.5-4.9)
[2017-11-15 09:15] LABS: MAGNESIUM 2.1 mg/dL (1.8-2.4)
[2017-11-15] MEDS ORDERED: oxyCODONE HCL 5 MG TABLET PO SCH (09:15)
[2017-11-15 09:16] LABS: ALK PHOS 202 U/L (45-117)
[2017-11-15] MEDS: GABAPENTIN 400 MG CAPSULE (FP) PO SCH ×3 (09:18→21:38)
--- NOTE | 2017-11-15 09:30 | PN ---
Progress Note (short form) - Note Progress Note: Neurology Progress Note (short form) NEUROLOGY FOLLOW-UP: Covering for Dr. West, discussed case with him this AM. Patient remains calm and comfortable in ICU this AM under close monitoring. No seizure events overnight, engineering technical specialist completed study at bedside this AM. Discussed with nurse and has been stable. May be able to be transferred to floor. Has been having chronic pains due to severe restless limbs syndrome, superimposed on underlying anxiety. Has episodes of shaking but no LOC or post-ictal confusion. Went into respiratory depression possibly due high amounts of lorazepam requiring intubation, currently respiring comfortably on room air. Active Medications Acetaminophen (Tylenol -) 650 mg PO Q4H PRN PRN Reason: FEVER Allopurinol (Zyloprim -) 300 mg PO DAILY [facility] Amlodipine Besylate (Norvasc -) 2.5 mg PO DAILY [facility] Calamine (Calamine 8% Topical Lotion -) 1 applic TP BID PRN PRN Reason: FOR ITCHING Calcium Gluconate (Calcium Gluconate 10% -) 2,000 mg IVPB ONCE PRN PRN Reason: tingling Chlorhexidine Gluconate (Hibiclens For Decolonization -) 1 applic TP HS [facility] Last Admin: 11/14/17 22:31 Dose: 1 applic Clonazepam (Klonopin -) 1 mg PO TID [facility] Last Admin: 11/15/17 09:19 Dose: 1 mg Docusate Sodium (Colace -) 300 mg PO HS [facility] Ferrous Sulfate (Feosol -) 325 mg PO DAILY [facility] Gabapentin (Neurontin -) 400 mg PO TID [facility] Last Admin: 11/15/17 09:18 Dose: 400 mg Heparin Sodium (Porcine) (Heparin -) 5,000 unit SQ TID [facility] Last Admin: 11/15/17 06:29 Dose: 5,000 unit Sodium Chloride (Normal Saline -) 1,000 mls @ 75 mls/hr IV ASDIR [facility] Last Admin: 11/14/17 22:30 Dose: Not Given Imatinib Mesylate (Gleevec (Restricted To Oncology) -) 400 mg PO DAILY [facility] Levetiracetam (Keppra Injection -) 1,000 mg IVPB BID [facility] Losartan Potassium (Cozaar -) 50 mg PO DAILY [facility] Mupirocin (Bactroban Ointment (For Decolonization) -) 1 applic NS BID [facility] Stop: 11/19/17 22:24 Last Admin: 11/14/17 22:32 Dose: 1 applic Non-Formulary Medication (Patient's Own Med) 1 each NR Mo [facility] Nystatin (Nystop Powder -) 1 applic TP DAILY [facility] Oxycodone HCl (Roxicodone -) 7.5 mg PO TID [facility] Last Admin: 11/15/17 09:20 Dose: 7.5 mg Pantoprazole Sodium (Protonix -) 40 mg PO DAILY [facility] Pramipexole Dihydrochloride (Mirapex -) 0.5 mg PO TID [facility] Senna (Senna -) 1 tab PO DAILY PRN PRN Reason: CONSTIPATION Triamcinolone Acetonide (Aristocort 0.025% Ointment -) 1 applic TP DAILY [facility] Vital Signs Temperature 98.2 F 11/15/17 06:00 Pulse Rate 80 11/15/17 06:00 Respiratory Rate 25 H 11/15/17 09:00 Blood Pressure 172/66 11/15/17 06:00 O2 Sat by Pulse Oximetry (%) 96 11/15/17 09:00 Exam: Gen: Awake, alert, responds to questions Card: RRR, nml S1,S2 Resp: Normal symmetric effort, lungs clear to auscultation Abdomen: Soft, nontender, bowel sounds active Musculoskeletal: Adequate range of motion without significant deformity Head atraumatic and normocephalic CN: PERRL, EOMI intact, no apparent facial droop, no abnormalities in facial sensation, palate elevates, uvula and tongue midline Motor: Strength intact in upper and lower extermities proximally and distally. Tone normal throughout Sensory: Intact to light touch Coordination: Intact on [id number] testing Gait:Deferred Imaging: Repeat MRI reviewed: No change from the prior study. 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 Plan: 72 y/o F with pseudoseizures, anxiety, RLS. Stable overnight Can continue current medication regiment remains calm and comfortable in ICU this AM under close monitoring. No seizure events overnight, engineering technical specialist completed study at bedside this AM. May be able to be transferred to floor. Went into respiratory depression possibly due high amounts of lorazepam requiring intubation, currently respiring comfortably on room air Avoid Ativan, events consistent with pseudoseizures Asking about Benadryll, nurse mentioned Dr. West did not want it initiated due to medication interactions Neurologically stable at this time, consider discharge planning Critical care: 35 mins
[2017-11-15 09:50] LABS: ARTERIAL BLD GAS O2 SATURATION 98.3 % (90-98.9); ARTERIAL BLOOD GAS BASE EXCESS 0.8 meq/l (-2-2); ARTERIAL BLOOD GAS PCO2 44.6 mmHg (35-45); ARTERIAL BLOOD GAS pH 7.38 (7.35-7.45)
[2017-11-15] MEDS ORDERED: amLODIPine BESYLATE 2.5 MG TABLET (FP) PO SCH (10:00)
[2017-11-15] MEDS ORDERED: NYSTATIN POWDER 100,000 UNITS/GM - 15 GM TOPICAL POWDER TP SCH (10:00)
[2017-11-15] MEDS ORDERED: LOSARTAN POTASSIUM 50 MG TABLET (FP) PO SCH (10:00)
[2017-11-15] MEDS ORDERED: ALLOPURINOL 100 MG TABLET (FP) PO SCH (10:00)
[2017-11-15] MEDS ORDERED: PARoxetine HCL 10 MG TABLET (FP) PO SCH (10:00)
[2017-11-15] MEDS ORDERED: levETIRAcetam 500 MG/5 ML INJECTION VIAL IVPB SCH (10:00)
[2017-11-15] MEDS ORDERED: IMATINIB MESYLATE 100 MG TABLET PO SCH (10:00)
[2017-11-15] MEDS ORDERED: TRIAMCINOLONE ACET 0.025% OINTMENT 15 GM TUBE TP SCH (10:00)
[2017-11-15] MEDS ORDERED: PARoxetine HCL 20 MG TABLET (FP) PO SCH (10:00)
[2017-11-15] MEDS ORDERED: PANTOPRAZOLE 40 MG TABLET (FP) PO SCH (10:00)
[2017-11-15] MEDS ORDERED: FERROUS SO4 325 MG TABLET (FP) PO SCH (10:00)
[2017-11-15 10:18] LABS: ALLENS TEST POSITIVE
[2017-11-15] MEDS: MUPIROCIN 2% TOPICAL OINTMENT FOR DECOLONIZATION NS SCH (10:30)
[2017-11-15] MEDS ORDERED: oxyCODONE HCL 5 MG TABLET PO PRN (10:50)
--- NOTE | 2017-11-15 11:22 | PN ---
Progress Note, Physician Chief Complaint: AWAKE CONFUSED EVENTS AND NOTES REVIEWED +APPETITE - Current Medication List Current Medications: Active Medications Acetaminophen (Tylenol -) 650 mg PO Q4H PRN PRN Reason: FEVER Allopurinol (Zyloprim -) 300 mg PO DAILY [facility] Last Admin: 11/15/17 10:00 Dose: 300 mg Amlodipine Besylate (Norvasc -) 2.5 mg PO DAILY [facility] Last Admin: 11/15/17 10:00 Dose: 2.5 mg Calamine (Calamine 8% Topical Lotion -) 1 applic TP BID PRN PRN Reason: FOR ITCHING Last Admin: 11/15/17 11:13 Dose: 1 applic Calcium Gluconate (Calcium Gluconate 10% -) 2,000 mg IVPB ONCE PRN PRN Reason: tingling Chlorhexidine Gluconate (Hibiclens For Decolonization -) 1 applic TP HS [facility] Last Admin: 11/14/17 22:31 Dose: 1 applic Clonazepam (Klonopin -) 1 mg PO TID [facility] Last Admin: 11/15/17 09:19 Dose: 1 mg Docusate Sodium (Colace -) 300 mg PO [facility] Ferrous Sulfate (Feosol -) 325 mg PO DAILY [facility] Last Admin: 11/15/17 10:00 Dose: 325 mg Gabapentin (Neurontin -) 400 mg PO TID [facility] Last Admin: 11/15/17 09:18 Dose: 400 mg Heparin Sodium (Porcine) (Heparin -) 5,000 unit SQ TID [facility] Last Admin: 11/15/17 06:29 Dose: 5,000 unit Sodium Chloride (Normal Saline -) 1,000 mls @ 75 mls/hr IV ASDIR [facility] Last Admin: 11/14/17 22:30 Dose: Not Given Imatinib Mesylate (Gleevec (Restricted To Oncology) -) 400 mg PO DAILY [facility] Levetiracetam (Keppra Injection -) 1,000 mg IVPB BID [facility] Last Admin: 11/15/17 10:01 Dose: 1,000 mg Losartan Potassium (Cozaar -) 50 mg PO DAILY [facility] Last Admin: 11/15/17 10:00 Dose: 50 mg Mupirocin (Bactroban Ointment (For Decolonization) -) 1 applic NS BID [facility] Stop: 11/19/17 22:24 Last Admin: 11/14/17 22:32 Dose: 1 applic Non-Formulary Medication (Patient's Own Med) 1 each NR Mo [facility] Nystatin (Nystop Powder -) 1 applic TP DAILY [facility] Oxycodone HCl (Roxicodone -) 7.5 mg PO TID PRN PRN Reason: PAIN LEVEL 6-10 Pantoprazole Sodium (Protonix -) 40 mg PO DAILY [facility] Last Admin: 11/15/17 10:00 Dose: 40 mg Pramipexole Dihydrochloride (Mirapex -) 0.5 mg PO TID [facility] Senna (Senna -) 1 tab PO DAILY PRN PRN Reason: CONSTIPATION Triamcinolone Acetonide (Aristocort 0.025% Ointment -) 1 applic TP DAILY [facility] Last Admin: 11/15/17 10:02 Dose: 1 applic - Objective Vital Signs: Vital Signs Temperature 98.2 F 11/15/17 06:00 Pulse Rate 80 11/15/17 06:00 Respiratory Rate 25 H 11/15/17 09:00 Blood Pressure 172/66 11/15/17 06:00 O2 Sat by Pulse Oximetry (%) 96 11/15/17 09:00 Constitutional: Yes: Mild Distress Eyes: Yes: WNL HENT: Yes: WNL, Tonsillar Exudate Cardiovascular: Yes: WNL Respiratory: Yes: WNL Gastrointestinal: Yes: WNL Genitourinary: Yes: Incontinence Musculoskeletal: Yes: Muscle Weakness Extremities: Yes: WNL Edema: Yes Peripheral Pulses WNL: Yes Integumentary: Yes: WNL Wound/Incision: Yes: Clean/Dry Neurological: Yes: Pre-Existing Deficit ...Motor Strength: LLE, RLE Psychiatric: Yes: Other Labs: CBC, BMP 11/15/17 07:55 11/15/17 07:55 INR, PTT INR 1.16 (0.82-1.09) H 11/13/17 06:45 Fibrinogen 422.0 mg/dL (238-498) 11/10/17 05:15 Problem List - Problems (1) Abnormal antibody titer Code(s): R76.8 - OTHER SPECIFIED ABNORMAL IMMUNOLOGICAL FINDINGS IN SERUM (2) CML (chronic myelocytic leukemia) Code(s): C92.10 - CHRONIC MYELOID LEUK, BCR/ABL-POSITIVE, NOT ACHIEVE REMIS (3) Fibromyalgia Code(s): M79.7 - FIBROMYALGIA (4) Hypothyroid Code(s): E03.9 - HYPOTHYROIDISM, UNSPECIFIED (5) Seizure Code(s): R56.9 - UNSPECIFIED CONVULSIONS (6) Spinal stenosis Code(s): M48.00 - SPINAL STENOSIS, SITE UNSPECIFIED (7) Thrombocytosis Code(s): D47.3 - ESSENTIAL (HEMORRHAGIC) THROMBOCYTHEMIA (8) UTI (urinary tract infection) Code(s): N39.0 - URINARY TRACT INFECTION, SITE NOT SPECIFIED Qualifiers: Urinary tract infection type: acute cystitis Hematuria presence: without hematuria Qualified Code(s): N30.00 - Acute cystitis without hematuria (9) Weakness Code(s): R53.1 - WEAKNESS Assessment/Plan HEME/ONC WORKUP IN PROGRESS MONITOR LABS CARDIO/PULM F/U OOB TO CHAIR WITH PT MAY NEED SNF STABLE OFF TELE PER CARDIOLOGY
--- NOTE | 2017-11-15 11:50 | PN ---
Teaching Attending Note Name of Resident: Paulina Finch ATTENDING PHYSICIAN STATEMENT I saw and evaluated the patient. I reviewed the resident's note and discussed the case with the resident. I agree with the resident's findings and plan as documented. SUBJECTIVE: Patient seen and examined in the ICU. Awake and alert, mildly confused. Apparently transferred due to seizure activity. Neuro doubts true seizure. Itching is better. Denies CP or SOB. Intake & Output 11/12/17 11/13/17 11/14/17 11/15/17 23:59 23:59 23:59 23:59 Intake Total 2550 2490 3562 900 Output Total 200 Balance 2350 2490 3562 900 Weight 194 lb 14.218 oz 196 lb 3 oz Last Vital Signs Temp Pulse Resp BP Pulse Ox 98.2 F 80 25 H 172/66 96 11/15/17 06:00 11/15/17 06:00 11/15/17 09:00 11/15/17 06:00 11/15/17 09:00 Active Medications Acetaminophen (Tylenol -) 650 mg PO Q4H PRN PRN Reason: FEVER Allopurinol (Zyloprim -) 300 mg PO DAILY [facility] Last Admin: 11/15/17 10:00 Dose: 300 mg Amlodipine Besylate (Norvasc -) 2.5 mg PO DAILY [facility] Last Admin: 11/15/17 10:00 Dose: 2.5 mg Calamine (Calamine 8% Topical Lotion -) 1 applic TP BID PRN PRN Reason: FOR ITCHING Last Admin: 11/15/17 11:13 Dose: 1 applic Calcium Gluconate (Calcium Gluconate 10% -) 2,000 mg IVPB ONCE PRN PRN Reason: tingling Chlorhexidine Gluconate (Hibiclens For Decolonization -) 1 applic TP HS [facility] Last Admin: 11/14/17 22:31 Dose: 1 applic Clonazepam (Klonopin -) 1 mg PO TID [facility] Last Admin: 11/15/17 09:19 Dose: 1 mg Docusate Sodium (Colace -) 300 mg PO HS [facility] Ferrous Sulfate (Feosol -) 325 mg PO DAILY [facility] Last Admin: 11/15/17 10:00 Dose: 325 mg Gabapentin (Neurontin -) 400 mg PO TID [facility] Last Admin: 11/15/17 09:18 Dose: 400 mg Heparin Sodium (Porcine) (Heparin -) 5,000 unit SQ TID [facility] Last Admin: 11/15/17 06:29 Dose: 5,000 unit Sodium Chloride (Normal Saline -) 1,000 mls @ 75 mls/hr IV ASDIR [facility] Last Admin: 11/14/17 22:30 Dose: Not Given Imatinib Mesylate (Gleevec (Restricted To Oncology) -) 400 mg PO DAILY [facility] Last Admin: 11/15/17 11:29 Dose: 400 mg Levetiracetam (Keppra Injection -) 1,000 mg IVPB BID [facility] Last Admin: 11/15/17 10:01 Dose: 1,000 mg Losartan Potassium (Cozaar -) 50 mg PO DAILY [facility] Last Admin: 11/15/17 10:00 Dose: 50 mg Mupirocin (Bactroban Ointment (For Decolonization) -) 1 applic NS BID [facility] Stop: 11/19/17 22:24 Last Admin: 11/14/17 22:32 Dose: 1 applic Non-Formulary Medication (Patient's Own Med) 1 each NR Mo [facility] Nystatin (Nystop Powder -) 1 applic TP DAILY [facility] Oxycodone HCl (Roxicodone -) 7.5 mg PO TID PRN PRN Reason: PAIN LEVEL 6-10 Pantoprazole Sodium (Protonix -) 40 mg PO DAILY [facility] Last Admin: 11/15/17 10:00 Dose: 40 mg Pramipexole Dihydrochloride (Mirapex -) 0.5 mg PO TID [facility] Last Admin: 11/15/17 11:20 Dose: 0.5 mg Senna (Senna -) 1 tab PO DAILY PRN PRN Reason: CONSTIPATION Triamcinolone Acetonide (Aristocort 0.025% Ointment -) 1 applic TP DAILY [facility] Last Admin: 11/15/17 10:02 Dose: 1 applic Constitutional: Yes: Awake and alert, mildly confused, NAD Cardiovascular: Yes: Regular Rate and Rhythm Respiratory: Yes: CTA Bilaterally Gastrointestinal: Yes: WNL, Normal Bowel Sounds Edema: No Peripheral Pulses WNL: Yes Neurological: Yes: Non-focal Skin: Minimal rash Labs: Laboratory Results - last 24 hr 11/14/17 11/14/17 11/14/17 13:25 14:20 14:20 WBC 5.9 RBC 3.15 L Hgb 8.6 L Hct 26.4 L MCV 83.6 MCH 27.2 MCHC 32.6 RDW 16.0 H Plt Count 850 H MPV 8.7 Absolute Neuts (auto) 3.9 Neutrophils % 65.8 Lymphocytes % 21.9 Monocytes % 3.5 L Eosinophils % 2.8 Basophils % 6.0 H* D Nucleated RBC % 0 Puncture Site ABG pH ABG pCO2 at Pt Temp ABG pO2 at Pt Temp ABG HCO3 ABG O2 Sat (Measured) ABG O2 Content ABG Base Excess Farzad Test O2 Delivery Device Oxygen Flow Rate Sodium 142 Potassium 5.0 Chloride 109 H Carbon Dioxide 26 Anion Gap 7 L BUN 18 Creatinine 0.9 Creat Clearance w eGFR > 60 POC Glucometer 135 Random Glucose 117 H Calcium 8.0 L Phosphorus Magnesium 2.2 Total Bilirubin 0.3 D AST 46 H ALT 38 Alkaline Phosphatase 225 H Total Protein 5.9 L Albumin 2.7 L 11/14/17 11/15/17 11/15/17 19:23 07:55 07:55 WBC 5.3 RBC 3.13 L Hgb 8.4 L Hct 26.3 L MCV 84.0 MCH 26.7 MCHC 31.8 L RDW 16.1 H Plt Count 895 H MPV 8.6 Absolute Neuts (auto) Neutrophils % Lymphocytes % Monocytes % Eosinophils % Basophils % Nucleated RBC % Puncture Site ABG pH ABG pCO2 at Pt Temp ABG pO2 at Pt Temp ABG HCO3 ABG O2 Sat (Measured) ABG O2 Content ABG Base Excess Farzad Test O2 Delivery Device Oxygen Flow Rate Sodium 141 Potassium 4.8 Chloride 108 H Carbon Dioxide 26 Anion Gap 7 L BUN 21 H Creatinine 0.9 Creat Clearance w eGFR > 60 POC Glucometer 115 Random Glucose 85 Calcium 8.3 L Phosphorus 3.9 Magnesium 2.1 Total Bilirubin 0.4 D AST 49 H ALT 40 Alkaline Phosphatase 202 H Total Protein 5.9 L Albumin 2.7 L 11/15/17 09:30 WBC RBC Hgb Hct MCV MCH MCHC RDW Plt Count MPV Absolute Neuts (auto) Neutrophils % Lymphocytes % Monocytes % Eosinophils % Basophils % Nucleated RBC % Puncture Site Right radial ABG pH 7.38 ABG pCO2 at Pt Temp 44.6 ABG pO2 at Pt Temp 108.0 H ABG HCO3 25.6 ABG O2 Sat (Measured) 98.3 ABG O2 Content 10.9 L ABG Base Excess 0.8 Farzad Test Positive O2 Delivery Device Nasal Oxygen Flow Rate 3l Sodium Potassium Chloride Carbon Dioxide Anion Gap BUN Creatinine Creat Clearance w eGFR POC Glucometer Random Glucose Calcium Phosphorus Magnesium Total Bilirubin AST ALT Alkaline Phosphatase Total Protein Albumin Problem List - Problems (1) Seizure Code(s): R56.9 - UNSPECIFIED CONVULSIONS (2) Spinal stenosis Code(s): M48.00 - SPINAL STENOSIS, SITE UNSPECIFIED (3) Thrombocytosis Code(s): D47.3 - ESSENTIAL (HEMORRHAGIC) THROMBOCYTHEMIA (4) Leukocytosis Code(s): D72.829 - ELEVATED WHITE BLOOD CELL COUNT, UNSPECIFIED Qualifiers: Leukocytosis type: unspecified Qualified Code(s): D72.829 - Elevated white blood cell count, unspecified (5) Hypertension Code(s): I10 - ESSENTIAL (PRIMARY) HYPERTENSION Assessment/Plan Chronic Myeloid Leukemia Leukocytosis and thrombocytosis New onset seizures Cervical spine stenosis/Degenerative disc disease MS Chronic pain Rash/itching possibly due to Gleevac Gleevac per Heme Hydrea per Heme Allopurinol Keppra Gabapentin Clonazepam Mirapex ASA 81mg Oxycodone for pain management VTE and GI prophylaxis Neuro follow up Oncology floor monitoring Dr Major Critical care time spent in reviewing chart, evaluating patient and formulating plan - 36 minutes.
--- NOTE | 2017-11-15 12:10 | PN ---
Physical Exam: SUBJECTIVE: Patient seen and examined. Patient offers no new complaints. No seizure activity since being transferred to ICU. Neuro does not believe its a true seizure. OBJECTIVE: Vital Signs Period Temp Pulse Resp BP Sys/Teague Pulse Ox Last 24 Hr 97.4 F-98.5 F 68-97 20-27 120-172/47-70 96-96 GENERAL: A/o x 3, appears comfortable in NAD EYES: PERRL ENT: moist mucous membranes. LUNGS: Clear to auscultation bilaterally, no wheezes, no crackles, no accessory muscle use. HEART: Regular rate and rhythm ABDOMEN: Soft, Obese, nontender, nondistended, normoactive bowel sounds. EXTREMITIES: No peripheral edema. NEUROLOGICAL: Cn 2-12 intact. Laboratory Results - last 24 hr 11/14/17 11/14/17 11/14/17 13:25 14:20 14:20 WBC 5.9 RBC 3.15 L Hgb 8.6 L Hct 26.4 L MCV 83.6 MCH 27.2 MCHC 32.6 RDW 16.0 H Plt Count 850 H MPV 8.7 Absolute Neuts (auto) 3.9 Neutrophils % 65.8 Lymphocytes % 21.9 Monocytes % 3.5 L Eosinophils % 2.8 Basophils % 6.0 H* D Nucleated RBC % 0 Puncture Site ABG pH ABG pCO2 at Pt Temp ABG pO2 at Pt Temp ABG HCO3 ABG O2 Sat (Measured) ABG O2 Content ABG Base Excess Farzad Test O2 Delivery Device Oxygen Flow Rate Sodium 142 Potassium 5.0 Chloride 109 H Carbon Dioxide 26 Anion Gap 7 L BUN 18 Creatinine 0.9 Creat Clearance w eGFR > 60 POC Glucometer 135 Random Glucose 117 H Calcium 8.0 L Phosphorus Magnesium 2.2 Total Bilirubin 0.3 D AST 46 H ALT 38 Alkaline Phosphatase 225 H Total Protein 5.9 L Albumin 2.7 L 11/14/17 11/15/17 11/15/17 19:23 07:55 07:55 WBC 5.3 RBC 3.13 L Hgb 8.4 L Hct 26.3 L MCV 84.0 MCH 26.7 MCHC 31.8 L RDW 16.1 H Plt Count 895 H MPV 8.6 Absolute Neuts (auto) Neutrophils % Lymphocytes % Monocytes % Eosinophils % Basophils % Nucleated RBC % Puncture Site ABG pH ABG pCO2 at Pt Temp ABG pO2 at Pt Temp ABG HCO3 ABG O2 Sat (Measured) ABG O2 Content ABG Base Excess Farzad Test O2 Delivery Device Oxygen Flow Rate Sodium 141 Potassium 4.8 Chloride 108 H Carbon Dioxide 26 Anion Gap 7 L BUN 21 H Creatinine 0.9 Creat Clearance w eGFR > 60 POC Glucometer 115 Random Glucose 85 Calcium 8.3 L Phosphorus 3.9 Magnesium 2.1 Total Bilirubin 0.4 D AST 49 H ALT 40 Alkaline Phosphatase 202 H Total Protein 5.9 L Albumin 2.7 L 11/15/17 09:30 WBC RBC Hgb Hct MCV MCH MCHC RDW Plt Count MPV Absolute Neuts (auto) Neutrophils % Lymphocytes % Monocytes % Eosinophils % Basophils % Nucleated RBC % Puncture Site Right radial ABG pH 7.38 ABG pCO2 at Pt Temp 44.6 ABG pO2 at Pt Temp 108.0 H ABG HCO3 25.6 ABG O2 Sat (Measured) 98.3 ABG O2 Content 10.9 L ABG Base Excess 0.8 Farzad Test Positive O2 Delivery Device Nasal Oxygen Flow Rate 3l Sodium Potassium Chloride Carbon Dioxide Anion Gap BUN Creatinine Creat Clearance w eGFR POC Glucometer Random Glucose Calcium Phosphorus Magnesium Total Bilirubin AST ALT Alkaline Phosphatase Total Protein Albumin Active Medications Generic Name Dose Route Start Last Admin Trade Name Freq PRN Reason Stop Dose Admin Acetaminophen 650 mg 11/14/17 22:25 Tylenol - PO Q4H PRN FEVER Allopurinol 300 mg 11/15/17 10:00 11/15/17 10:00 Zyloprim - PO 300 mg DAILY [facility] Administration Amlodipine Besylate 2.5 mg 11/15/17 10:00 11/15/17 10:00 Norvasc - PO 2.5 mg DAILY [facility] Administration Calamine 1 applic 11/15/17 08:03 11/15/17 11:13 Calamine 8% Topical Lotion - TP 1 applic BID PRN Administration FOR ITCHING Calcium Gluconate 2,000 mg 11/14/17 22:25 Calcium Gluconate 10% - IVPB ONCE PRN tingling Chlorhexidine Gluconate 1 applic 11/14/17 22:25 11/14/17 22:31 Hibiclens For Decolonization - TP 1 applic HS [facility] Administration Clonazepam 1 mg 11/15/17 09:15 11/15/17 09:19 Klonopin - PO 1 mg TID [facility] Administration Docusate Sodium 300 mg 11/15/17 22:00 Colace - PO HS [facility] Ferrous Sulfate 325 mg 11/15/17 10:00 11/15/17 10:00 Feosol - PO 325 mg DAILY [facility] Administration Gabapentin 400 mg 11/15/17 09:15 11/15/17 09:18 Neurontin - PO 400 mg TID [facility] Administration Heparin Sodium (Porcine) 5,000 unit 11/15/17 06:00 11/15/17 06:29 Heparin - SQ 5,000 unit TID [facility] Administration Sodium Chloride 1,000 mls @ 75 mls/hr 11/14/17 22:25 11/14/17 22:30 Normal Saline - IV Not Given ASDIR [facility] Imatinib Mesylate 400 mg 11/15/17 10:00 11/15/17 11:29 Gleevec (Restricted To Oncology) - PO 400 mg DAILY [facility] Administration Levetiracetam 1,000 mg 11/15/17 10:00 11/15/17 10:01 Keppra Injection - IVPB 1,000 mg BID [facility] Administration Losartan Potassium 50 mg 11/15/17 10:00 11/15/17 10:00 Cozaar - PO 50 mg DAILY [facility] Administration Mupirocin 1 applic 11/14/17 22:25 11/14/17 22:32 Bactroban Ointment (For Decolonization) - NS 11/19/17 22:24 1 applic BID [facility] Administration Non-Formulary Medication 1 each 11/19/17 15:15 Patient's Own Med NR Mo [facility] Nystatin 1 applic 11/15/17 10:00 Nystop Powder - TP DAILY [facility] Oxycodone HCl 7.5 mg 11/15/17 10:50 Roxicodone - PO TID PRN PAIN LEVEL 6-10 Pantoprazole Sodium 40 mg 11/15/17 10:00 11/15/17 10:00 Protonix - PO 40 mg DAILY [facility] Administration Pramipexole Dihydrochloride 0.5 mg 11/15/17 09:15 11/15/17 11:20 Mirapex - PO 0.5 mg TID [facility] Administration Senna 1 tab 11/14/17 22:25 Senna - PO DAILY PRN [facility]ST[facility] Triamcinolone Acetonide 1 applic 11/15/17 10:00 11/15/17 10:02 Aristocort 0.025% Ointment - TP 1 applic DAILY [facility] Administration ASSESSMENT/PLAN: Patient is a 72 year old female who was for abnormal labs of leukocytosis. Patient was witnessed to have seizure activity and transferred to ICU for further monitoring or management. Neuro: #Seizures -Likely pseudo per Neuro -CT head and MRI negative -Repeat MRI 11/12 unremarkable -Continue Keppra 1000mg BID -Klonipin 1mg TID #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 -Continue Avenox 30mcg weekly on Mondays #Cervical Spinal Stenosis -Continue Gabapentin 400mg po TID #Restless Leg Syndrome -Start Mirapex 0.5 mg po TID Heme/Onc: #Chronic Myeloid Leukemia -Continue Hydroxyurea and Gleevac -Continue Allopurinol #Thrombocytosis/Leukocytosis -Secondary to CML -S/P Plateletpheresis (11/08 and 11/09). No longer requires it, as per heme/ onco. Nephro: #ADELA on CKD -Cr at Baseline 0.9-1.1. -Continue IVF with NS@75mls/hr -May continue ARB Cardio: #HTN-controlled -Continue Amlodipine 2.5mg PO daily, Losartan 50mg PO daily -Continue to monitor BP #CAD -Continue ASA 81mg po daily PSYCH: #Anxiety/Depression -Klonopin 1mg TID F/E/N -IV NS @75mls/hr -monitor lytes -Sodium controlled diet. Prophylaxis -Continue Heparin 5000 units sq TID for DVT -Protonix 40mg PO daily for GI Transfer to [facility]-surge Visit type - Emergency Visit Emergency Visit: Yes ED Registration Date: 11/06/17 Care time: The patient presented to the Emergency Department on the above date and was hospitalized for further evaluation of their emergent condition. - New Patient This patient is new to me today: No - Critical Care Critical Care patient: Yes Total Critical Care Time (in minutes): 40 Critical Care Statement: The care of this patient involved high complexity decision making to prevent further life threatening deterioration of the patient 's condition and/or to evaluate & treat vital organ system(s) failure or risk of failure.
--- NOTE | 2017-11-15 15:36 | PN ---
Progress Note (short form) - Note Progress Note: pt requesting IV meds. benadryl. she says she's anxious. Constitutional: Yes: in no Distress HENT: Yes: Atraumatic, Normocephalic Neck: Yes: Supple Cardiovascular: Yes: Regular Rate and Rhythm Respiratory: Yes: Regular Gastrointestinal: Yes: Soft, Abdomen, Obese, Tenderness Edema: Yes Neurological: Yes: AAOX3 Temp Pulse Resp BP Pulse Ox 98.4 F 78 24 144/89 96 11/15/17 10:00 11/15/17 12:00 11/15/17 12:00 11/15/17 12:00 11/15/17 09:00 CBC, BMP 11/15/17 07:55 11/15/17 07:55 Current Medications Generic Name Dose Route Start Last Admin Trade Name Freq PRN Reason Stop Dose Admin Acetaminophen 650 mg 11/14/17 22:25 Tylenol - PO Q4H PRN FEVER Allopurinol 300 mg 11/15/17 10:00 11/15/17 10:00 Zyloprim - PO 300 mg DAILY [facility] Administration Amlodipine Besylate 2.5 mg 11/15/17 10:00 11/15/17 10:00 Norvasc - PO 2.5 mg DAILY [facility] Administration Calamine 1 applic 11/15/17 08:03 11/15/17 11:13 Calamine 8% Topical Lotion - TP 1 applic BID PRN Administration FOR ITCHING Calcium Gluconate 2,000 mg 11/14/17 22:25 Calcium Gluconate 10% - IVPB ONCE PRN tingling Chlorhexidine Gluconate 1 applic 11/14/17 22:25 11/14/17 22:31 Hibiclens For Decolonization - TP 1 applic HS [facility] Administration Clonazepam 1 mg 11/15/17 09:15 11/15/17 13:16 Klonopin - PO 1 mg TID [facility] Administration Docusate Sodium 300 mg 11/15/17 22:00 Colace - PO HS [facility] Ferrous Sulfate 325 mg 11/15/17 10:00 11/15/17 10:00 Feosol - PO 325 mg DAILY [facility] Administration Gabapentin 400 mg 11/15/17 09:15 11/15/17 13:16 Neurontin - PO 400 mg TID [facility] Administration Heparin Sodium (Porcine) 5,000 unit 11/15/17 06:00 11/15/17 13:16 Heparin - SQ 5,000 unit TID [facility] Administration Sodium Chloride 1,000 mls @ 75 mls/hr 11/14/17 22:25 11/14/17 22:30 Normal Saline - IV Not Given [facility] Imatinib Mesylate 400 mg 11/15/17 10:00 11/15/17 11:29 Gleevec (Restricted To Oncology) - PO 400 mg DAILY [facility] Administration Levetiracetam 1,000 mg 11/15/17 10:00 11/15/17 10:01 Keppra Injection - IVPB 1,000 mg BID [facility] Administration Losartan Potassium 50 mg 11/15/17 10:00 11/15/17 10:00 Cozaar - PO 50 mg DAILY [facility] Administration Mupirocin 1 applic 11/14/17 22:25 11/15/17 10:30 Bactroban Ointment (For Decolonization) - NS 11/19/17 22:24 1 applic BID [facility] Administration Non-Formulary Medication 1 each 11/19/17 15:15 Patient's Own Med NR Mo [facility] Nystatin 1 applic 11/15/17 10:00 Nystop Powder - TP DAILY [facility] Oxycodone HCl 7.5 mg 11/15/17 10:50 Roxicodone - PO TID PRN PAIN LEVEL 6-10 Pantoprazole Sodium 40 mg 11/15/17 10:00 11/15/17 10:00 Protonix - PO 40 mg DAILY [facility] Administration Pramipexole Dihydrochloride 0.5 mg 11/15/17 09:15 11/15/17 13:17 Mirapex - PO 0.5 mg TID [facility] Administration Senna 1 tab 11/14/17 22:25 Senna - PO DAILY PRN CONSTIPATION Triamcinolone Acetonide 1 applic 11/15/17 10:00 11/15/17 10:02 Aristocort 0.025% Ointment - TP 1 applic DAILY [facility] Administration Chronic Myeloid Leukemia--- BCR ABL positive (Translocation t9;22) -overall heme parameters improving. - c/w gleevac present doses -normal VW ag levels -c/w DVT ppx. neuro f/u noted Problem List - Problems (1) Leukocytosis Code(s): D72.829 - ELEVATED WHITE BLOOD CELL COUNT, UNSPECIFIED Qualifiers: Leukocytosis type: unspecified Qualified Code(s): D72.829 - Elevated white blood cell count, unspecified (2) Thrombocytosis Code(s): D47.3 - ESSENTIAL (HEMORRHAGIC) THROMBOCYTHEMIA (3) Chronic pain of multiple joints Code(s): M25.50 - PAIN IN UNSPECIFIED JOINT; G89.29 - OTHER CHRONIC PAIN
--- NOTE | 2017-11-15 16:01 | PN ---
Progress Note (short form) - Note Progress Note: Renal follow up for suspected ADELA vs. CKD Pt seen and examined in the ICU awake and alert denies any sob, chest pain no seizures episodes Vital Signs Temperature 98.4 F 11/15/17 10:00 Pulse Rate 78 11/15/17 12:00 Respiratory Rate 24 11/15/17 12:00 Blood Pressure 144/89 11/15/17 12:00 O2 Sat by Pulse Oximetry (%) 96 11/15/17 09:00 Intake & Output 11/12/17 11/13/17 11/14/17 11/15/17 23:59 23:59 23:59 23:59 Intake Total 2550 2490 3562 900 Output Total 200 Balance 2350 2490 3562 900 Weight 88.4 kg 88.989 kg NAD awake and alert RRR CTA soft, obese, NT/ND trace edema CBC, BMP 11/15/17 07:55 11/15/17 07:55 Current Medications Acetaminophen (Tylenol -) 650 mg PO Q4H PRN PRN Reason: FEVER Allopurinol (Zyloprim -) 300 mg PO DAILY [facility] Last Admin: 11/15/17 10:00 Dose: 300 mg Amlodipine Besylate (Norvasc -) 2.5 mg PO DAILY [facility] Last Admin: 11/15/17 10:00 Dose: 2.5 mg Calamine (Calamine 8% Topical Lotion -) 1 applic TP BID PRN PRN Reason: FOR ITCHING Last Admin: 11/15/17 11:13 Dose: 1 applic Calcium Gluconate (Calcium Gluconate 10% -) 2,000 mg IVPB ONCE PRN PRN Reason: tingling Chlorhexidine Gluconate (Hibiclens For Decolonization -) 1 applic TP HS [facility] Last Admin: 11/14/17 22:31 Dose: 1 applic Clonazepam (Klonopin -) 1 mg PO TID [facility] Last Admin: 11/15/17 13:16 Dose: 1 mg Docusate Sodium (Colace -) 300 mg PO HS [facility] Ferrous Sulfate (Feosol -) 325 mg PO DAILY [facility] Last Admin: 11/15/17 10:00 Dose: 325 mg Gabapentin (Neurontin -) 400 mg PO TID [facility] Last Admin: 11/15/17 13:16 Dose: 400 mg Heparin Sodium (Porcine) (Heparin -) 5,000 unit SQ TID [facility] Last Admin: 11/15/17 13:16 Dose: 5,000 unit Sodium Chloride (Normal Saline -) 1,000 mls @ 75 mls/hr IV ASDIR [facility] Last Admin: 11/14/17 22:30 Dose: Not Given Imatinib Mesylate (Gleevec (Restricted To Oncology) -) 400 mg PO DAILY [facility] Last Admin: 11/15/17 11:29 Dose: 400 mg Levetiracetam (Keppra Injection -) 1,000 mg IVPB BID [facility] Last Admin: 11/15/17 10:01 Dose: 1,000 mg Losartan Potassium (Cozaar -) 50 mg PO DAILY [facility] Last Admin: 11/15/17 10:00 Dose: 50 mg Mupirocin (Bactroban Ointment (For Decolonization) -) 1 applic NS BID [facility] Stop: 11/19/17 22:24 Last Admin: 11/15/17 10:30 Dose: 1 applic Non-Formulary Medication (Patient's Own Med) 1 each NR Mo [facility] Nystatin (Nystop Powder -) 1 applic TP DAILY [facility] Oxycodone HCl (Roxicodone -) 7.5 mg PO TID PRN PRN Reason: PAIN LEVEL 6-10 Pantoprazole Sodium (Protonix -) 40 mg PO DAILY [facility] Last Admin: 11/15/17 10:00 Dose: 40 mg Pramipexole Dihydrochloride (Mirapex -) 0.5 mg PO TID [facility] Last Admin: 11/15/17 13:17 Dose: 0.5 mg Senna (Senna -) 1 tab PO DAILY PRN PRN Reason: CONSTIPATION Triamcinolone Acetonide (Aristocort 0.025% Ointment -) 1 applic TP DAILY [facility] Last Admin: 11/15/17 10:02 Dose: 1 applic 72 year old woman with PMhx of MS, Newly diagnosed CML with thrombocytosis/ leukocytosis with AMS and Cr of 1.3 #ADELA vs. CKD r/o tumor lysis syndrome #AMS/Seziures #CML Renal function now improved can d/c IVF when pt is able to tolerate oral diet continue ARB avoid nephrotoxins and IV contrast if possible Neurology follow up with anti-seizure medications as per their recommendations. Roman Santillan DO
[2017-11-15] MEDS ORDERED: CALCIUM GLUCONATE 10% - 1,000 MG/10 ML VIAL IVPB PRN (18:36)
[2017-11-15] MEDS ORDERED: SENNOSIDES 8.6MG TABLET (FP) PO PRN (18:36)
--- NOTE | 2017-11-15 19:19 | PATH ---
Surgical Pathology Report Patient Name: NICK COOK [facility]. Rec. #: [id number] /Age/Gender: 1945 (Age: 72) / F Account: [id number] Location: [facility] MED/SURG Taken: 11/13/2017 Received: 11/13/2017 Reported: 11/15/2017 Physicians: Paris Blanco M.D. Specimen(s) Received PERIPHERAL BLOOD 2 GREEN 2 LAVENDER Clinical History The CML/MDS Final Diagnosis COMPREHENSIVE FLOW PANEL performed and interpreted at [place], [place] ([id number]) shows the following: INTERPRETATION: There is no evidence of B or T-cell proliferative disorders or increased blasts. Basophilia. Slightly left-shifted granulocytes, see comment. COMMENT: Molecular studies, performed on the prior sample ([id number]) detected BCR/ABL1 translocation. Flow cytometry immunophenotyping performed on that sample ([id number]) detected 0.4% myeloblasts. See [facility] report ([id number]) for additional details. MYELODYSPLASIA FISH PANEL performed and interpreted at [place], [place] ([id number]) shows the following: INTERPRETATION: The BCR/ABL1 t(9;22) translocation is detected. No evidence of deletion 5q or monosomy 5 is present. No evidence of deletion 7q or monosomy 7 is present. No evidence of trisomy 8 (+8) is present. No evidence of deletion 13q14.2 is present. No evidence of rearrangement of 11q23. No evidence of a deletion of the p53 (17p13) locus. No evidence of deletion 20q12 is present COMMENT: This result confirms chronic myeloid leukemia. Correlation with pending cytogenetics ([id number]) is recommended. See [facility] report ([id number]) for additional details Electronically Signed Kala Jimenez M.D. Addendum Reported: 11/23/2017 Addendum Diagnosis CYTOGENETIC KARYOTYPE ANALYSIS performed and interpreted at [facility] ([id number]) shows the following: RESULTS: TISSUE CULTURE FAILURE INTERPRETATION: This unstimulated peripheral blood specimen did not produce any analyzable metaphase cells and, therefore, chromosome analysis is not possible. A bone marrow aspirate, when clinically appropriate, is recommended. See [facility] report for additional details ([id number]) Kala Jimenez M.D. Gross Description Received are 2 green top tubes and 2 purple top tubes of peripheral blood which are sent to [facility]. 11/13/201711/13/2017
[2017-11-15] MEDS: SODIUM CHLORIDE 1,000 ML IV SCH (20:00)
[2017-11-15] MEDS: levETIRAcetam 500 MG/5 ML INJECTION VIAL IVPB SCH (21:38)
[2017-11-15] MEDS: DOCUSATE SODIUM 100 MG CAPSULE (FP) PO SCH (21:38)
[2017-11-15] MEDS ORDERED: MUPIROCIN 2% TOPICAL OINTMENT FOR DECOLONIZATION NS SCH (22:00)
[2017-11-15] MEDS ORDERED: DOCUSATE SODIUM 100 MG CAPSULE (FP) PO SCH (22:00)
[2017-11-16] MEDS: PRAMIPEXOLE DIHYDROCHLORIDE 0.5 MG TABLET PO SCH ×3 (06:24→22:19)
[2017-11-16] MEDS: clonazePAM 0.5 MG TABLET PO SCH ×5 (06:24→23:06)
[2017-11-16] MEDS: HEPARIN NA (PORCINE) 5,000 UNITS/ML 1ML VIAL SQ SCH ×3 (06:25→22:20)
[2017-11-16] MEDS: GABAPENTIN 400 MG CAPSULE (FP) PO SCH ×3 (06:25→22:20)
[2017-11-16] MEDS: oxyCODONE HCL 5 MG TABLET PO PRN ×2 (07:30→15:54)
[2017-11-16 08:05] LABS: HEMATOCRIT 26.4 % (32.4-45.2); HEMOGLOBIN 8.7 GM/dL (10.7-15.3); MCH 28.1 pg (25.7-33.7); MCHC 32.9 g/dl (32.0-36.0); MEAN CELL VOLUME 85.4 fl (80-96); MEAN PLT VOLUME 9.1 fl (7.5-11.1); PLATELET COUNT 753 K/MM3 (134-434); RBC 3.09 M/mm3 (3.60-5.2); RDW 16.2 % (11.6-15.6); WHITE BLOOD COUNT 4.2 K/mm3 (4.0-10.0)
[2017-11-16 08:06] LABS: SERUM IRON SATURATION 36 % (15-55); TOTAL IRON BINDING CAPACITY 228 ug/dL (250-450); UIBC 147 ug/dL (118-369)
[2017-11-16 08:24] LABS: CHLORIDE 108 mmol/L (98-107); POTASSIUM 5.3 mmol/L (3.5-5.1); SODIUM 141 mmol/L (136-145)
[2017-11-16 08:34] LABS: ALBUMIN 2.7 g/dl (3.4-5.0); ALK PHOS 199 U/L (45-117); ANION GAP 8 (8-16); BILIRUBIN,TOTAL 0.3 mg/dL (0.2-1.0); BLOOD UREA NITROGEN 24 mg/dL (7-18); CALCIUM 8.2 mg/dL (8.5-10.1); CO2 25 mmol/L (21-32); CREATININE 1.1 mg/dL (0.55-1.02); GLUCOSE,RANDOM 80 mg/dL (74-106); PHOSPHOROUS 4.5 mg/dL (2.5-4.9); SGOT/AST 41 U/L (15-37); SGPT/ALT 38 U/L (12-78); TOT PROT 5.8 g/dl (6.4-8.2)
--- NOTE | 2017-11-16 09:26 | PN ---
Progress Note (short form) - Note Progress Note: Neurology Progress Note (short form) NEUROLOGY FOLLOW-UP: Covering for Dr. West, discussed case with him yesterday. Patient downgraded to floor. Has been having chronic pains due to severe restless limbs syndrome, superimposed on underlying anxiety. Has episodes of shaking but no LOC or post- ictal confusion, believed to be pseudoseizures. Went into respiratory depression possibly due high amounts of lorazepam requiring intubation, currently respiring comfortably on room air. EEG completed and reviewed, normal , discussed with patient. No new complaints, stable overnight. Active Medications Acetaminophen (Tylenol -) 650 mg PO Q4H PRN PRN Reason: FEVER Allopurinol (Zyloprim -) 300 mg PO DAILY [facility] Amlodipine Besylate (Norvasc -) 2.5 mg PO DAILY [facility] Calamine (Calamine 8% Topical Lotion -) 1 applic TP BID PRN PRN Reason: FOR ITCHING Last Admin: 11/15/17 21:39 Dose: 1 applic Calcium Gluconate (Calcium Gluconate 10% -) 2,000 mg IVPB ONCE PRN PRN Reason: tingling Clonazepam (Klonopin -) 1 mg PO TID [facility] Last Admin: 11/16/17 06:24 Dose: 1 mg Docusate Sodium (Colace -) 300 mg PO HS [facility] Last Admin: 11/15/17 21:38 Dose: 300 mg Ferrous Sulfate (Feosol -) 325 mg PO DAILY [facility] Gabapentin (Neurontin -) 400 mg PO TID [facility] Last Admin: 11/16/17 06:25 Dose: 400 mg Heparin Sodium (Porcine) (Heparin -) 5,000 unit SQ TID [facility] Last Admin: 11/16/17 06:25 Dose: 5,000 unit Sodium Chloride (Normal Saline -) 1,000 mls @ 75 mls/hr IV ASDIR [facility] Last Admin: 11/15/17 20:00 Dose: Not Given Imatinib Mesylate (Gleevec (Restricted To Oncology) -) 400 mg PO DAILY [facility] Levetiracetam (Keppra Injection -) 1,000 mg IVPB BID [facility] Last Admin: 11/15/17 21:38 Dose: 1,000 mg Losartan Potassium (Cozaar -) 50 mg PO DAILY [facility] Non-Formulary Medication (Patient's Own Med) 1 each NR Mo [facility] Nystatin (Nystop Powder -) 1 applic TP DAILY [facility] Oxycodone HCl (Roxicodone -) 7.5 mg PO TID PRN PRN Reason: PAIN LEVEL 6-10 Last Admin: 11/16/17 07:30 Dose: 7.5 mg Pantoprazole Sodium (Protonix -) 40 mg PO DAILY [facility] Pramipexole Dihydrochloride (Mirapex -) 0.5 mg PO TID [facility] Last Admin: 11/16/17 06:24 Dose: 0.5 mg Senna (Senna -) 1 tab PO DAILY PRN PRN Reason: CONSTIPATION Triamcinolone Acetonide (Aristocort 0.025% Ointment -) 1 applic TP DAILY [facility] Vital Signs Temperature 98.1 F 11/16/17 05:54 Pulse Rate 68 11/16/17 05:54 Respiratory Rate 18 11/16/17 05:54 Blood Pressure 166/71 11/16/17 05:54 O2 Sat by Pulse Oximetry (%) 96 11/15/17 21:00 Exam: Gen: Awake, alert, responds to questions Card: RRR, nml S1,S2 Resp: Normal symmetric effort, lungs clear to auscultation Abdomen: Soft, nontender, bowel sounds active Musculoskeletal: Adequate range of motion without significant deformity Head atraumatic and normocephalic CN: PERRL, EOMI intact, no apparent facial droop, no abnormalities in facial sensation, palate elevates, uvula and tongue midline Motor: Strength intact in upper and lower extermities proximally and distally. Tone normal throughout Sensory: Intact to light touch Coordination: Intact on [id number] testing Gait:Deferred Imaging: Repeat MRI reviewed: No change from the prior study. 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 Plan: 72 y/o F with pseudoseizures, anxiety, RLS. During this hospitalization, went into respiratory depression possibly due to lorazepam requiring intubation, currently respiring comfortably on room air Can continue current medication regiment No seizure events overnight, EEG reivewed and normal, discussed with patient at bedside Downgraded to floor and stable Avoid Ativan, events consistent with pseudoseizures Asking about Akira nurse mentioned Dr. West did not want it initiated due to medication interactions Neurologically stable at this time
[2017-11-16] MEDS ORDERED: PT OWN MED DRAWER 7, Y5N ONE ×5 (10:44→22:45)
[2017-11-16] MEDS: levETIRAcetam 500 MG/5 ML INJECTION VIAL IVPB SCH ×2 (10:47→22:13)
[2017-11-16] MEDS: amLODIPine BESYLATE 2.5 MG TABLET (FP) PO SCH (10:48)
[2017-11-16] MEDS: FERROUS SO4 325 MG TABLET (FP) PO SCH (10:48)
[2017-11-16] MEDS: ALLOPURINOL 300 MG TABLET (FP) PO SCH (10:48)
[2017-11-16] MEDS: PANTOPRAZOLE 40 MG TABLET (FP) PO SCH (10:48)
[2017-11-16] MEDS: LOSARTAN POTASSIUM 50 MG TABLET (FP) PO SCH (10:48)
[2017-11-16] MEDS: IMATINIB MESYLATE 100 MG TABLET PO SCH (10:49)
--- NOTE | 2017-11-16 11:48 | PN ---
Progress Note, Physician History of Present Illness: NAD alert and oriented in bed has not been seen by physical therapy since 11/14/17 Pt refuses to go to SNF, lives at home alone Pt wants to be DNR/DNI - Current Medication List Current Medications: Active Medications Acetaminophen (Tylenol -) 650 mg PO Q4H PRN PRN Reason: FEVER Allopurinol (Zyloprim -) 300 mg PO DAILY [facility] Last Admin: 11/16/17 10:48 Dose: 300 mg Amlodipine Besylate (Norvasc -) 2.5 mg PO DAILY [facility] Last Admin: 11/16/17 10:48 Dose: 2.5 mg Calamine (Calamine 8% Topical Lotion -) 1 applic TP BID PRN PRN Reason: FOR ITCHING Last Admin: 11/15/17 21:39 Dose: 1 applic Calcium Gluconate (Calcium Gluconate 10% -) 2,000 mg IVPB ONCE PRN PRN Reason: tingling Clonazepam (Klonopin -) 1 mg PO TID [facility] Last Admin: 11/16/17 06:24 Dose: 1 mg Docusate Sodium (Colace -) 300 mg PO HS [facility] Last Admin: 11/15/17 21:38 Dose: 300 mg Ferrous Sulfate (Feosol -) 325 mg PO DAILY [facility] Last Admin: 11/16/17 10:48 Dose: 325 mg Gabapentin (Neurontin -) 400 mg PO TID [facility] Last Admin: 11/16/17 06:25 Dose: 400 mg Heparin Sodium (Porcine) (Heparin -) 5,000 unit SQ TID [facility] Last Admin: 11/16/17 06:25 Dose: 5,000 unit Sodium Chloride (Normal Saline -) 1,000 mls @ 75 mls/hr IV ASDIR [facility] Last Admin: 11/15/17 20:00 Dose: Not Given Imatinib Mesylate (Gleevec (Restricted To Oncology) -) 400 mg PO DAILY [facility] Last Admin: 11/16/17 10:49 Dose: 400 mg Levetiracetam (Keppra Injection -) 1,000 mg IVPB BID [facility] Last Admin: 11/16/17 10:47 Dose: 1,000 mg Losartan Potassium (Cozaar -) 50 mg PO DAILY [facility] Last Admin: 11/16/17 10:48 Dose: 50 mg Non-Formulary Medication (Patient's Own Med) 1 each NR Mo [facility] Nystatin (Nystop Powder -) 1 applic TP DAILY [facility] Oxycodone HCl (Roxicodone -) 7.5 mg PO TID PRN PRN Reason: PAIN LEVEL 6-10 Last Admin: 11/16/17 07:30 Dose: 7.5 mg Pantoprazole Sodium (Protonix -) 40 mg PO DAILY [facility] Last Admin: 11/16/17 10:48 Dose: 40 mg Pramipexole Dihydrochloride (Mirapex -) 0.5 mg PO TID [facility] Last Admin: 11/16/17 06:24 Dose: 0.5 mg Senna (Senna -) 1 tab PO DAILY PRN PRN Reason: CONSTIPATION Triamcinolone Acetonide (Aristocort 0.025% Ointment -) 1 applic TP DAILY [facility] - Objective Vital Signs: Vital Signs Temperature 97.4 F L 11/16/17 10:00 Pulse Rate 69 11/16/17 10:00 Respiratory Rate 18 11/16/17 10:00 Blood Pressure 126/60 11/16/17 10:00 O2 Sat by Pulse Oximetry (%) 99 11/16/17 09:00 Constitutional: Yes: Well Nourished, No Distress, Calm Cardiovascular: Yes: Regular Rate and Rhythm Respiratory: Yes: Diminished (bl bases) Musculoskeletal: Yes: Muscle Weakness Edema: Yes Edema: LLE: 1+, RLE: 1+ Peripheral Pulses WNL: Yes Neurological: Yes: Alert, Oriented Psychiatric: Yes: Alert, Oriented Labs: CBC, BMP 11/16/17 06:00 11/16/17 07:40 INR, PTT INR 1.16 (0.82-1.09) H 11/13/17 06:45 Fibrinogen 422.0 mg/dL (238-498) 11/10/17 05:15 Problem List - Problems (1) CML (chronic myelocytic leukemia) Assessment/Plan: -Oncology on board -on Gleevec Code(s): C92.10 - CHRONIC MYELOID LEUK, BCR/ABL-POSITIVE, NOT ACHIEVE REMIS (2) Constipation Assessment/Plan: -on colace and senna -Add miralax Code(s): K59.00 - CONSTIPATION, UNSPECIFIED (3) Seizure Assessment/Plan: -Neurology on board -Pseudoseizures -Keppra po 1000 mg BID Code(s): R56.9 - UNSPECIFIED CONVULSIONS (4) Anemia Assessment/Plan: -2/2 to CKD, chemo -Iron profile normal -Also check stool ob, b 12 and thyroid profile -transfuse as needed Code(s): D64.9 - ANEMIA, UNSPECIFIED Assessment/Plan see problem list DVT prophylaxis
[2017-11-16] MEDS: TRIAMCINOLONE ACET 0.025% OINTMENT 15 GM TUBE TP SCH (11:49)
[2017-11-16] MEDS: NYSTATIN POWDER 100,000 UNITS/GM - 15 GM TOPICAL POWDER TP SCH (13:42)
[2017-11-16] MEDS: SODIUM CHLORIDE 1,000 ML IV SCH (13:51)
--- NOTE | 2017-11-16 14:45 | PN ---
Progress Note (short form) - Note Progress Note: Renal follow up for suspected ADELA vs. CKD Pt seen and examined at the bedside reprorts diffuse body pain poor appetite making urine no sob, chest pain Vital Signs Temperature 99.3 F 11/16/17 13:27 Pulse Rate 75 11/16/17 13:27 Respiratory Rate 18 11/16/17 13:27 Blood Pressure 117/50 11/16/17 13:27 O2 Sat by Pulse Oximetry (%) 99 11/16/17 09:00 NAD awake and alert RRR CTA soft, obese, NT/ND trace edema CBC, BMP 11/16/17 06:00 11/16/17 07:40 Current Medications Acetaminophen (Tylenol -) 650 mg PO Q4H PRN PRN Reason: FEVER Allopurinol (Zyloprim -) 300 mg PO DAILY [facility] Last Admin: 11/16/17 10:48 Dose: 300 mg Amlodipine Besylate (Norvasc -) 2.5 mg PO DAILY [facility] Last Admin: 11/16/17 10:48 Dose: 2.5 mg Calamine (Calamine 8% Topical Lotion -) 1 applic TP BID PRN PRN Reason: FOR ITCHING Last Admin: 11/15/17 21:39 Dose: 1 applic Calcium Gluconate (Calcium Gluconate 10% -) 2,000 mg IVPB ONCE PRN PRN Reason: tingling Clonazepam (Klonopin -) 1 mg PO TID [facility] Last Admin: 11/16/17 13:44 Dose: 1 mg Docusate Sodium (Colace -) 300 mg PO HS [facility] Last Admin: 11/15/17 21:38 Dose: 300 mg Ferrous Sulfate (Feosol -) 325 mg PO DAILY [facility] Last Admin: 11/16/17 10:48 Dose: 325 mg Gabapentin (Neurontin -) 400 mg PO TID [facility] Last Admin: 11/16/17 13:44 Dose: 400 mg Heparin Sodium (Porcine) (Heparin -) 5,000 unit SQ TID [facility] Last Admin: 11/16/17 13:45 Dose: 5,000 unit Sodium Chloride (Normal Saline -) 1,000 mls @ 75 mls/hr IV ASDIR [facility] Last Admin: 11/16/17 13:51 Dose: 75 mls/hr Imatinib Mesylate (Gleevec (Restricted To Oncology) -) 400 mg PO DAILY [facility] Last Admin: 11/16/17 10:49 Dose: 400 mg Levetiracetam (Keppra Injection -) 1,000 mg IVPB BID [facility] Last Admin: 11/16/17 10:47 Dose: 1,000 mg Losartan Potassium (Cozaar -) 50 mg PO DAILY [facility] Last Admin: 11/16/17 10:48 Dose: 50 mg Non-Formulary Medication (Patient's Own Med) 1 each NR Mo [facility] Nystatin (Nystop Powder -) 1 applic TP DAILY [facility] Last Admin: 11/16/17 13:42 Dose: 1 applic Oxycodone HCl (Roxicodone -) 7.5 mg PO TID PRN PRN Reason: PAIN LEVEL 6-10 Last Admin: 11/16/17 07:30 Dose: 7.5 mg Pantoprazole Sodium (Protonix -) 40 mg PO DAILY [facility] Last Admin: 11/16/17 10:48 Dose: 40 mg Pramipexole Dihydrochloride (Mirapex -) 0.5 mg PO TID [facility] Last Admin: 11/16/17 13:45 Dose: 0.5 mg Senna (Senna -) 1 tab PO DAILY PRN PRN Reason: CONSTIPATION Triamcinolone Acetonide (Aristocort 0.025% Ointment -) 1 applic TP DAILY [facility] Last Admin: 11/16/17 11:49 Dose: Not Given 72 year old woman with PMhx of MS, Newly diagnosed CML with thrombocytosis/ leukocytosis with AMS and Cr of 1.3 #ADELA vs. CKD r/o tumor lysis syndrome #AMS/Seziures #CML Renal function stable change IVF to hypotonic saline, can d/c as pts diet improves Trend renal function and electrolytes Neurology follow up Roman Santillan DO
[2017-11-16] MEDS: SODIUM CHLORIDE 0.45% 1,000 ML IV SCH (15:47)
--- NOTE | 2017-11-16 16:40 | PN ---
Progress Note (short form) - Note Progress Note: Patient seen and examined Alert and oriented in name, place clinically improved Last Vital Signs Temp Pulse Resp BP Pulse Ox 99.3 F 75 18 117/50 99 11/16/17 13:27 11/16/17 13:27 11/16/17 13:27 11/16/17 13:27 11/16/17 09:00 Obese Cor: RSR, No murmurs, No gallops Lungs: Clear to P&A Abd: Soft, Normal bowel sounds, No organomegaly, mild diffuse tenderness, no guarding or rigidity Ext:No significant edema Abnormal Lab Results 11/14/17 11/14/17 11/16/17 14:20 16:00 06:00 RBC 3.09 L Hgb 8.7 L Hct 26.4 L RDW 16.2 H Plt Count 753 H Potassium Chloride BUN Creatinine Calcium TIBC 228 L AST Alkaline Phosphatase Total Protein Albumin Prolactin 0.8 L 11/16/17 07:40 RBC Hgb Hct RDW Plt Count Potassium 5.3 H Chloride 108 H BUN 24 H Creatinine 1.1 H Calcium 8.2 L TIBC AST 41 H Alkaline Phosphatase 199 H Total Protein 5.8 L Albumin 2.7 L Prolactin A/P 72 y/o patient with thrombocytosis/leukocytosis, new diagnosis of CML , late chronic phase, h/o MS and now with new onset seizures on allopurinol/fluids On gleevec 400mg daily monitoring renal function/LDH/uric acid hydrea on hold. on gleevec low grade temps--check cxr, urine culture
[2017-11-16] MEDS: DOCUSATE SODIUM 100 MG CAPSULE (FP) PO SCH (22:19)
[2017-11-17] MEDS ORDERED: PT OWN MED DRAWER 7, Y5N ONE ×3 (05:37→20:45)
[2017-11-17] MEDS: GABAPENTIN 400 MG CAPSULE (FP) PO SCH ×3 (05:40→22:31)
[2017-11-17] MEDS: SODIUM CHLORIDE 0.45% 1,000 ML IV SCH ×2 (05:40→22:30)
[2017-11-17] MEDS: oxyCODONE HCL 5 MG TABLET PO PRN ×2 (05:40→19:43)
[2017-11-17] MEDS: PRAMIPEXOLE DIHYDROCHLORIDE 0.5 MG TABLET PO SCH ×3 (05:40→22:32)
[2017-11-17] MEDS: clonazePAM 0.5 MG TABLET PO SCH ×3 (05:40→22:32)
[2017-11-17] MEDS: HEPARIN NA (PORCINE) 5,000 UNITS/ML 1ML VIAL SQ SCH ×3 (05:42→22:32)
--- NOTE | 2017-11-17 07:13 | PN ---
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 Pt wants to be DNR/DNI - Current Medication List Current Medications: Active Medications Acetaminophen (Tylenol -) 650 mg PO Q4H PRN PRN Reason: FEVER Allopurinol (Zyloprim -) 300 mg PO DAILY [facility] Last Admin: 11/16/17 10:48 Dose: 300 mg Amlodipine Besylate (Norvasc -) 2.5 mg PO DAILY [facility] Last Admin: 11/16/17 10:48 Dose: 2.5 mg Calamine (Calamine 8% Topical Lotion -) 1 applic TP BID PRN PRN Reason: FOR ITCHING Last Admin: 11/15/17 21:39 Dose: 1 applic Calcium Gluconate (Calcium Gluconate 10% -) 2,000 mg IVPB ONCE PRN PRN Reason: tingling Clonazepam (Klonopin -) 1 mg PO TID [facility] Last Admin: 11/17/17 05:40 Dose: 1 mg Docusate Sodium (Colace -) 300 mg PO HS [facility] Last Admin: 11/16/17 22:19 Dose: 300 mg Ferrous Sulfate (Feosol -) 325 mg PO DAILY [facility] Last Admin: 11/16/17 10:48 Dose: 325 mg Gabapentin (Neurontin -) 400 mg PO TID [facility] Last Admin: 11/17/17 05:40 Dose: 400 mg Heparin Sodium (Porcine) (Heparin -) 5,000 unit SQ TID [facility] Last Admin: 11/17/17 05:42 Dose: 5,000 unit Sodium Chloride (1/2 Normal Saline) 1,000 mls @ 75 mls/hr IV ASDIR [facility] Last Admin: 11/17/17 05:40 Dose: 75 mls/hr Imatinib Mesylate (Gleevec (Restricted To Oncology) -) 400 mg PO DAILY [facility] Last Admin: 11/16/17 10:49 Dose: 400 mg Levetiracetam (Keppra Injection -) 1,000 mg IVPB BID [facility] Last Admin: 11/16/17 22:13 Dose: 1,000 mg Losartan Potassium (Cozaar -) 50 mg PO DAILY [facility] Last Admin: 11/16/17 10:48 Dose: 50 mg Non-Formulary Medication (Patient's Own Med) 1 each NR Mo [facility] Nystatin (Nystop Powder -) 1 applic TP DAILY [facility] Last Admin: 11/16/17 13:42 Dose: 1 applic Oxycodone HCl (Roxicodone -) 7.5 mg PO TID PRN PRN Reason: PAIN LEVEL 6-10 Last Admin: 11/17/17 05:40 Dose: 7.5 mg Pantoprazole Sodium (Protonix -) 40 mg PO DAILY [facility] Last Admin: 11/16/17 10:48 Dose: 40 mg Pramipexole Dihydrochloride (Mirapex -) 0.5 mg PO TID [facility] Last Admin: 11/17/17 05:40 Dose: 0.5 mg Senna (Senna -) 1 tab PO DAILY PRN PRN Reason: CONSTIPATION Triamcinolone Acetonide (Aristocort 0.025% Ointment -) 1 applic TP DAILY [facility] Last Admin: 11/16/17 11:49 Dose: Not Given - Objective Vital Signs: Vital Signs Temperature 98.4 F 11/17/17 06:05 Pulse Rate 76 11/17/17 06:05 Respiratory Rate 24 11/17/17 06:05 Blood Pressure 146/57 11/17/17 06:05 O2 Sat by Pulse Oximetry (%) 98 11/16/17 20:29 Constitutional: Yes: Well Nourished, No Distress, Calm Cardiovascular: Yes: Regular Rate and Rhythm Respiratory: Yes: Regular Gastrointestinal: Yes: Normal Bowel Sounds, Soft, Abdomen, Obese Musculoskeletal: Yes: Muscle Weakness Extremities: Yes: WNL Edema: LLE: Trace, RLE: Trace Peripheral Pulses WNL: Yes Neurological: Yes: Alert, Oriented Psychiatric: Yes: Alert, Oriented Labs: INR, PTT INR 1.16 (0.82-1.09) H 11/13/17 06:45 Fibrinogen 422.0 mg/dL (238-498) 11/10/17 05:15 Problem List - Problems (1) CML (chronic myelocytic leukemia) Assessment/Plan: -Oncology on board -on Gleevec Code(s): C92.10 - CHRONIC MYELOID LEUK, BCR/ABL-POSITIVE, NOT ACHIEVE REMIS (2) Chronic renal insufficiency, stage III (moderate) Assessment/Plan: -renal on board -Cr at baseline Code(s): N18.3 - CHRONIC KIDNEY DISEASE, STAGE 3 (MODERATE) (3) Anemia Assessment/Plan: -2/2 to CKD, chemo -Iron profile normal -Also check stool ob, b 12 and thyroid profile -transfuse if Hgb below 7.0 to avoid fluid overload Code(s): D64.9 - ANEMIA, UNSPECIFIED (4) Constipation Assessment/Plan: -on colace and senna -Add miralax Code(s): K59.00 - CONSTIPATION, UNSPECIFIED (5) Seizure Assessment/Plan: -Neurology on board -Pseudoseizures -Change IV keppra to po 1000 mg BID Code(s): R56.9 - UNSPECIFIED CONVULSIONS (6) Weakness Assessment/Plan: Seen by Physical therapy -refuses to go to SNF -Has CLIENT SERVER DEVELOPER at home -will go home when ready with VNS Code(s): R53.1 - WEAKNESS Assessment/Plan see problem list DVT prophylaxis
[2017-11-17 07:16] LABS: EOS % 8.9 % (0-4.5); HEMATOCRIT 23.5 % (32.4-45.2); HEMOGLOBIN 7.8 GM/dL (10.7-15.3); LYMPH % 40.8 % (8-40); MEAN CELL VOLUME 84.9 fl (80-96); MONO % 6.6 % (3.8-10.2); NEUT % 36.7 % (42.8-82.8); PLATELET COUNT 724 K/MM3 (134-434); RBC 2.77 M/mm3 (3.60-5.2); WHITE BLOOD COUNT 3.5 K/mm3 (4.0-10.0)
[2017-11-17 08:18] LABS: ALBUMIN 2.6 g/dl (3.4-5.0); ANION GAP 6 (8-16); BLOOD UREA NITROGEN 24 mg/dL (7-18); CALCIUM 7.5 mg/dL (8.5-10.1); CHLORIDE 107 mmol/L (98-107); CO2 27 mmol/L (21-32); GLUCOSE,RANDOM 83 mg/dL (74-106); POTASSIUM 4.7 mmol/L (3.5-5.1); SGOT/AST 37 U/L (15-37); SODIUM 140 mmol/L (136-145)
[2017-11-17 08:20] LABS: ALK PHOS 188 U/L (45-117); BILIRUBIN,TOTAL 0.2 mg/dL (0.2-1.0); CREATININE 1.2 mg/dL (0.55-1.02); LDH 212 U/L (84-246); SGPT/ALT 30 U/L (12-78); TOT PROT 5.4 g/dl (6.4-8.2); URIC ACID 3.6 mg/dL (2.6-7.2)
[2017-11-17] MEDS: levETIRAcetam 500 MG/5 ML INJECTION VIAL IVPB SCH (09:39)
[2017-11-17] MEDS: LOSARTAN POTASSIUM 50 MG TABLET (FP) PO SCH (09:46)
[2017-11-17] MEDS: PANTOPRAZOLE 40 MG TABLET (FP) PO SCH (09:46)
[2017-11-17] MEDS: FERROUS SO4 325 MG TABLET (FP) PO SCH (09:46)
[2017-11-17] MEDS: amLODIPine BESYLATE 2.5 MG TABLET (FP) PO SCH (09:47)
[2017-11-17] MEDS: ALLOPURINOL 300 MG TABLET (FP) PO SCH (09:47)
[2017-11-17] MEDS: TRIAMCINOLONE ACET 0.025% OINTMENT 15 GM TUBE TP SCH (09:48)
[2017-11-17] MEDS: NYSTATIN POWDER 100,000 UNITS/GM - 15 GM TOPICAL POWDER TP SCH (09:48)
[2017-11-17] MEDS: IMATINIB MESYLATE 100 MG TABLET PO SCH (09:49)
--- NOTE | 2017-11-17 10:36 | PN ---
Progress Note (short form) - Note Progress Note: Resting in NAD. Mildly confused (no change from previous). No seizure. Denies CP or SOB. Intake & Output 11/14/17 11/15/17 11/16/17 11/17/17 23:59 23:59 23:59 23:59 Intake Total 3562 2115 1905 985 Balance 3562 2115 1905 985 Last Vital Signs Temp Pulse Resp BP Pulse Ox 98.7 F 78 20 140/61 92 L 11/17/17 10:00 11/17/17 10:00 11/17/17 10:00 11/17/17 10:00 11/17/17 09:00 Active Medications Acetaminophen (Tylenol -) 650 mg PO Q4H PRN PRN Reason: FEVER Allopurinol (Zyloprim -) 300 mg PO DAILY [facility] Last Admin: 11/17/17 09:47 Dose: 300 mg Amlodipine Besylate (Norvasc -) 2.5 mg PO DAILY [facility] Last Admin: 11/17/17 09:47 Dose: 2.5 mg Calamine (Calamine 8% Topical Lotion -) 1 applic TP BID PRN PRN Reason: FOR ITCHING Last Admin: 11/15/17 21:39 Dose: 1 applic Calcium Gluconate (Calcium Gluconate 10% -) 2,000 mg IVPB ONCE PRN PRN Reason: tingling Clonazepam (Klonopin -) 1 mg PO TID [facility] Last Admin: 11/17/17 05:40 Dose: 1 mg Docusate Sodium (Colace -) 300 mg PO HS [facility] Last Admin: 11/16/17 22:19 Dose: 300 mg Ferrous Sulfate (Feosol -) 325 mg PO DAILY [facility] Last Admin: 11/17/17 09:46 Dose: 325 mg Gabapentin (Neurontin -) 400 mg PO TID [facility] Last Admin: 11/17/17 05:40 Dose: 400 mg Heparin Sodium (Porcine) (Heparin -) 5,000 unit SQ TID [facility] Last Admin: 11/17/17 05:42 Dose: 5,000 unit Sodium Chloride (1/2 Normal Saline) 1,000 mls @ 75 mls/hr IV ASDIR [facility] Last Admin: 11/17/17 05:40 Dose: 75 mls/hr Imatinib Mesylate (Gleevec (Restricted To Oncology) -) 400 mg PO DAILY [facility] Last Admin: 11/17/17 09:49 Dose: 400 mg Levetiracetam (Keppra Injection -) 1,000 mg IVPB BID [facility] Last Admin: 11/17/17 09:39 Dose: 1,000 mg Losartan Potassium (Cozaar -) 50 mg PO DAILY [facility] Last Admin: 11/17/17 09:46 Dose: 50 mg Non-Formulary Medication (Patient's Own Med) 1 each NR Mo [facility] Nystatin (Nystop Powder -) 1 applic TP DAILY [facility] Last Admin: 11/17/17 09:48 Dose: 1 applic Oxycodone HCl (Roxicodone -) 7.5 mg PO TID PRN PRN Reason: PAIN LEVEL 6-10 Last Admin: 11/17/17 05:40 Dose: 7.5 mg Pantoprazole Sodium (Protonix -) 40 mg PO DAILY [facility] Last Admin: 11/17/17 09:46 Dose: 40 mg Pramipexole Dihydrochloride (Mirapex -) 0.5 mg PO TID [facility] Last Admin: 11/17/17 05:40 Dose: 0.5 mg Senna (Senna -) 1 tab PO DAILY PRN PRN Reason: CONSTIPATION Triamcinolone Acetonide (Aristocort 0.025% Ointment -) 1 applic TP DAILY [facility] Last Admin: 11/17/17 09:48 Dose: Not Given Constitutional: Yes: Awake and alert, mildly confused, NAD Cardiovascular: Yes: Regular Rate and Rhythm Respiratory: Yes: scattered rhonchi Gastrointestinal: Yes: WNL, Normal Bowel Sounds Edema: No Peripheral Pulses WNL: Yes Neurological: Yes: Non-focal Skin: Minimal rash Labs: Laboratory Results - last 24 hr 11/17/17 11/17/17 06:36 06:36 WBC 3.5 L RBC 2.77 L Hgb 7.8 L D Hct 23.5 L MCV 84.9 MCH 28.0 MCHC 33.0 RDW 16.0 H Plt Count 724 H MPV 8.0 D Absolute Neuts (auto) 1.3 Neutrophils % 36.7 L D Lymphocytes % 40.8 H D Monocytes % 6.6 D Eosinophils % 8.9 H D Basophils % 7.0 H* Nucleated RBC % 0 Sodium 140 Potassium 4.7 Chloride 107 Carbon Dioxide 27 Anion Gap 6 L BUN 24 H Creatinine 1.2 H Creat Clearance w eGFR 44.16 Random Glucose 83 Uric Acid 3.6 Calcium 7.5 L Total Bilirubin 0.2 D AST 37 ALT 30 Alkaline Phosphatase 188 H LD Total 212 Total Protein 5.4 L Albumin 2.6 L Problem List - Problems (1) Seizure Code(s): R56.9 - UNSPECIFIED CONVULSIONS (2) Spinal stenosis Code(s): M48.00 - SPINAL STENOSIS, SITE UNSPECIFIED (3) Thrombocytosis Code(s): D47.3 - ESSENTIAL (HEMORRHAGIC) THROMBOCYTHEMIA (4) Leukocytosis Code(s): D72.829 - ELEVATED WHITE BLOOD CELL COUNT, UNSPECIFIED Qualifiers: Leukocytosis type: unspecified Qualified Code(s): D72.829 - Elevated white blood cell count, unspecified (5) Hypertension Code(s): I10 - ESSENTIAL (PRIMARY) HYPERTENSION Assessment/Plan Chronic Myeloid Leukemia Leukocytosis and thrombocytosis New onset seizures Cervical spine stenosis/Degenerative disc disease MS Chronic pain Rash/itching possibly due to Gleevac Gleevac per Heme Hydrea per Heme Allopurinol Keppra Gabapentin Clonazepam Mirapex ASA 81mg Oxycodone for pain management VTE and GI prophylaxis Dr Major
--- NOTE | 2017-11-17 12:14 | PN ---
Progress Note, Physician Chief Complaint: Patient seen in her room. C/o generalized itching. In extreme discomfort. Reports good urine output. History of Present Illness: 72 year old woman with PMhx of MS, Newly diagnosed CML with Thrombocytosis/ Leukocytosis with AMS and Cr of 1.3 - Current Medication List Current Medications: Active Medications Acetaminophen (Tylenol -) 650 mg PO Q4H PRN PRN Reason: FEVER Allopurinol (Zyloprim -) 300 mg PO DAILY [facility] Last Admin: 11/17/17 09:47 Dose: 300 mg Amlodipine Besylate (Norvasc -) 2.5 mg PO DAILY [facility] Last Admin: 11/17/17 09:47 Dose: 2.5 mg Calamine (Calamine 8% Topical Lotion -) 1 applic TP BID PRN PRN Reason: FOR ITCHING Last Admin: 11/15/17 21:39 Dose: 1 applic Calcium Gluconate (Calcium Gluconate 10% -) 2,000 mg IVPB ONCE PRN PRN Reason: tingling Clonazepam (Klonopin -) 1 mg PO TID [facility] Last Admin: 11/17/17 05:40 Dose: 1 mg Docusate Sodium (Colace -) 300 mg PO HS [facility] Last Admin: 11/16/17 22:19 Dose: 300 mg Ferrous Sulfate (Feosol -) 325 mg PO DAILY [facility] Last Admin: 11/17/17 09:46 Dose: 325 mg Gabapentin (Neurontin -) 400 mg PO TID [facility] Last Admin: 11/17/17 05:40 Dose: 400 mg Heparin Sodium (Porcine) (Heparin -) 5,000 unit SQ TID [facility] Last Admin: 11/17/17 05:42 Dose: 5,000 unit Sodium Chloride (1/2 Normal Saline) 1,000 mls @ 75 mls/hr IV ASDIR [facility] Last Admin: 11/17/17 05:40 Dose: 75 mls/hr Imatinib Mesylate (Gleevec (Restricted To Oncology) -) 400 mg PO DAILY [facility] Last Admin: 11/17/17 09:49 Dose: 400 mg Levetiracetam (Keppra -) 1,000 mg PO BID [facility] Losartan Potassium (Cozaar -) 50 mg PO DAILY [facility] Last Admin: 11/17/17 09:46 Dose: 50 mg Non-Formulary Medication (Patient's Own Med) 1 each NR Mo [facility] Nystatin (Nystop Powder -) 1 applic TP DAILY [facility] Last Admin: 11/17/17 09:48 Dose: 1 applic Oxycodone HCl (Roxicodone -) 7.5 mg PO TID PRN PRN Reason: PAIN LEVEL 6-10 Last Admin: 11/17/17 05:40 Dose: 7.5 mg Pantoprazole Sodium (Protonix -) 40 mg PO DAILY [facility] Last Admin: 11/17/17 09:46 Dose: 40 mg Polyethylene Glycol (Miralax (For Daily Use) -) 17 gm PO DAILY [facility] Pramipexole Dihydrochloride (Mirapex -) 0.5 mg PO TID [facility] Last Admin: 11/17/17 05:40 Dose: 0.5 mg Senna (Senna -) 1 tab PO DAILY PRN PRN Reason: CONSTIPATION Triamcinolone Acetonide (Aristocort 0.025% Ointment -) 1 applic TP DAILY [facility] Last Admin: 11/17/17 09:48 Dose: Not Given - Objective Vital Signs: Vital Signs Temperature 98.7 F 11/17/17 10:00 Pulse Rate 78 11/17/17 10:00 Respiratory Rate 20 11/17/17 10:00 Blood Pressure 140/61 11/17/17 10:00 O2 Sat by Pulse Oximetry (%) 92 L 11/17/17 09:00 Constitutional: Yes: Moderate Distress (from generalized itching), Pallor Eyes: Yes: Conjunctiva Clear HENT: Yes: Normocephalic Neck: Yes: Trachea Midline Cardiovascular: Yes: Regular Rate and Rhythm, S1, S2 Respiratory: Yes: CTA Bilaterally, Diminished Gastrointestinal: Yes: Normal Bowel Sounds, Abdomen, Obese Labs: CBC, BMP 11/17/17 06:36 11/17/17 06:36 INR, PTT INR 1.16 (0.82-1.09) H 11/13/17 06:45 Fibrinogen 422.0 mg/dL (238-498) 11/10/17 05:15 Problem List - Problems (1) Acute kidney failure Code(s): N17.9 - ACUTE KIDNEY FAILURE, UNSPECIFIED (2) CML (chronic myelocytic leukemia) Code(s): C92.10 - CHRONIC MYELOID LEUK, BCR/ABL-POSITIVE, NOT ACHIEVE REMIS (3) Fibromyalgia Code(s): M79.7 - FIBROMYALGIA (4) Hypothyroid Code(s): E03.9 - HYPOTHYROIDISM, UNSPECIFIED (5) Seizure Code(s): R56.9 - UNSPECIFIED CONVULSIONS (6) Weakness Code(s): R53.1 - WEAKNESS (7) Chronic renal insufficiency, stage III (moderate) Code(s): N18.3 - CHRONIC KIDNEY DISEASE, STAGE 3 (MODERATE) (8) Diabetes Code(s): E11.9 - TYPE 2 DIABETES MELLITUS WITHOUT COMPLICATIONS Qualifiers: Diabetes mellitus type: type 2 (9) History of CVA (cerebrovascular accident) Code(s): Z86.73 - PRSNL HX OF TIA (TIA), AND CEREB INFRC W/O RESID DEFICITS Assessment/Plan 72 year old woman with PMhx of MS, Newly diagnosed CML with thrombocytosis/ leukocytosis with AMS and Cr of 1.3 Has underlying CKD Has generalized pruritus. ? etiology. Noted is Eosinophilia. ? drug reaction. ? may benefit from a short course of Steroids. Renal functions are stable. Less likely to be Tumor lysis syndrome. Will monitor the renal functions with you. Mayte Price MD
[2017-11-17 12:28] LABS: URINE APPEARANCE CLEAR; URINE BILIRUBIN NEGATIVE (<2.0 mg/dL); URINE COLOR LTYELLOW; URINE GLUCOSE (UA) NEGATIVE (NEGATIVE); URINE KETONE NEGATIVE (NEGATIVE); URINE LEUK ESTERASE NEGATIVE (NEGATIVE); URINE NITRITE NEGATIVE (NEGATIVE); URINE PROTEIN NEGATIVE (NEGATIVE); URINE UROBILINOGEN NEGATIVE mg/dL (0.2-1.0)
--- NOTE | 2017-11-17 12:31 | PN ---
Progress Note (short form) - Note Progress Note: Hematology/Oncology follow-up note S: Appears distressed when visited today, writhing in bed. Pt says she feels a lot of scratching in her back. Per RN's account- patient upset about benadryl being withdrawn off medication list. Last Vital Signs Temp Pulse Resp BP Pulse Ox 98.7 F 78 20 140/61 92 L 11/17/17 10:00 11/17/17 10:00 11/17/17 10:00 11/17/17 10:00 11/17/17 09:00 Patient refused to let me examine her. Withdrawing to touch consciously CBC, BMP 11/17/17 06:36 11/17/17 06:36 Current Medications Generic Name Dose Route Start Last Admin Trade Name Freq PRN Reason Stop Dose Admin Acetaminophen 650 mg 11/15/17 18:36 Tylenol - PO Q4H PRN FEVER Allopurinol 300 mg 11/16/17 10:00 11/17/17 09:47 Zyloprim - PO 300 mg DAILY [facility] Administration Amlodipine Besylate 2.5 mg 11/16/17 10:00 11/17/17 09:47 Norvasc - PO 2.5 mg DAILY [facility] Administration Calamine 1 applic 11/15/17 18:36 11/15/17 21:39 Calamine 8% Topical Lotion - TP 1 applic BID PRN Administration FOR ITCHING Calcium Gluconate 2,000 mg 11/15/17 18:36 Calcium Gluconate 10% - IVPB ONCE PRN tingling Clonazepam 1 mg 11/16/17 22:45 11/17/17 05:40 Klonopin - PO 1 mg TID [facility] Administration Docusate Sodium 300 mg 11/15/17 22:00 11/16/17 22:19 Colace - PO 300 mg HS [facility] Administration Ferrous Sulfate 325 mg 11/16/17 10:00 11/17/17 09:46 Feosol - PO 325 mg DAILY [facility] Administration Gabapentin 400 mg 11/15/17 22:00 11/17/17 05:40 Neurontin - PO 400 mg TID [facility] Administration Heparin Sodium (Porcine) 5,000 unit 11/15/17 22:00 11/17/17 05:42 Heparin - SQ 5,000 unit TID [facility] Administration Sodium Chloride 1,000 mls @ 75 mls/hr 11/16/17 14:45 11/17/17 05:40 1/2 Normal Saline IV 75 mls/hr ASDIR [facility] Administration Imatinib Mesylate 400 mg 11/16/17 10:00 11/17/17 09:49 Gleevec (Restricted To Oncology) - PO 400 mg DAILY [facility] Administration Levetiracetam 1,000 mg 11/17/17 22:00 Keppra - PO BID [facility] Losartan Potassium 50 mg 11/16/17 10:00 11/17/17 09:46 Cozaar - PO 50 mg DAILY [facility] Administration Non-Formulary Medication 1 each 11/19/17 15:15 Patient's Own Med NR Mo [facility] Nystatin 1 applic 11/16/17 10:00 11/17/17 09:48 Nystop Powder - TP 1 applic DAILY [facility] Administration Oxycodone HCl 7.5 mg 11/15/17 18:36 11/17/17 05:40 Roxicodone - PO 7.5 mg TID PRN Administration PAIN LEVEL 6-10 Pantoprazole Sodium 40 mg 11/16/17 10:00 11/17/17 09:46 Protonix - PO 40 mg DAILY [facility] Administration Polyethylene Glycol 17 gm 11/17/17 12:00 Miralax (For Daily Use) - PO DAILY [facility] Pramipexole Dihydrochloride 0.5 mg 11/15/17 22:00 11/17/17 05:40 Mirapex - PO 0.5 mg TID [facility] Administration Senna 1 tab 11/15/17 18:36 Senna - PO DAILY PRN CONSTIPATION Triamcinolone Acetonide 1 applic 11/16/17 10:00 11/17/17 09:48 Aristocort 0.025% Ointment - TP Not Given DAILY [facility] A/P : 72 y/o patient with thrombocytosis/leukocytosis, new diagnosis of CML , late chronic phase, h/o MS and now with new onset seizures -Continue 400 mg daily Gleevec dose -Itching possibly side effect of Gleevec, ok to continue benadryl for symptomatic relief prn -monitor daily LDH, uric acid, continue allopurinol -counts trending down on Gleevec, will continue to monitor -Ucx pending, CXR from 11/10 shows possible atelectasis/infiltrate, not recorded a fever today, can monitor for clinical symptoms and start Abx accordingly
[2017-11-17] MEDS: ACETAMINOPHEN 325 MG TABLET (FP) PO PRN (12:33)
[2017-11-17] MEDS: POLYETHYLENE GLYCOL 3350 119 GM BTL PO SCH (13:52)
[2017-11-17] MEDS ORDERED: INSULIN (NOVOLOG) ASPART 100 UNITS/ML 10ML VIAL ONE (18:35)
[2017-11-17] MEDS: DOCUSATE SODIUM 100 MG CAPSULE (FP) PO SCH (22:31)
[2017-11-17] MEDS: levETIRAcetam 500 MG TABLET (FP) PO SCH (22:32)
[2017-11-18] MEDS: oxyCODONE HCL 5 MG TABLET PO PRN ×2 (04:10→13:13)
[2017-11-18] MEDS ORDERED: PT OWN MED DRAWER 7, Y5N ONE ×3 (05:31→20:31)
[2017-11-18] MEDS: PRAMIPEXOLE DIHYDROCHLORIDE 0.5 MG TABLET PO SCH ×3 (05:45→22:38)
[2017-11-18] MEDS: clonazePAM 0.5 MG TABLET PO SCH ×3 (05:45→22:38)
[2017-11-18] MEDS: HEPARIN NA (PORCINE) 5,000 UNITS/ML 1ML VIAL SQ SCH ×3 (05:46→22:38)
[2017-11-18] MEDS: GABAPENTIN 400 MG CAPSULE (FP) PO SCH ×3 (05:46→22:38)
[2017-11-18] MEDS ORDERED: diphenhydrAMINE HCL 25 MG CAPSULE (FP) PO PRN (07:16)
--- NOTE | 2017-11-18 07:19 | PN ---
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/DNI - Current Medication List Current Medications: Active Medications Acetaminophen (Tylenol -) 650 mg PO Q4H PRN PRN Reason: FEVER Last Admin: 11/17/17 12:33 Dose: 650 mg Allopurinol (Zyloprim -) 300 mg PO DAILY [facility] Last Admin: 11/17/17 09:47 Dose: 300 mg Amlodipine Besylate (Norvasc -) 2.5 mg PO DAILY [facility] Last Admin: 11/17/17 09:47 Dose: 2.5 mg Calamine (Calamine 8% Topical Lotion -) 1 applic TP BID PRN PRN Reason: FOR ITCHING Last Admin: 11/15/17 21:39 Dose: 1 applic Calcium Gluconate (Calcium Gluconate 10% -) 2,000 mg IVPB ONCE PRN PRN Reason: tingling Clonazepam (Klonopin -) 1 mg PO TID [facility] Last Admin: 11/18/17 05:45 Dose: 1 mg Diphenhydramine HCl (Benadryl -) 25 mg PO Q6H PRN PRN Reason: FOR ITCHING Docusate Sodium (Colace -) 300 mg PO HS [facility] Last Admin: 11/17/17 22:31 Dose: 300 mg Ferrous Sulfate (Feosol -) 325 mg PO DAILY [facility] Last Admin: 11/17/17 09:46 Dose: 325 mg Gabapentin (Neurontin -) 400 mg PO TID [facility] Last Admin: 11/18/17 05:46 Dose: 400 mg Heparin Sodium (Porcine) (Heparin -) 5,000 unit SQ TID [facility] Last Admin: 11/18/17 05:46 Dose: 5,000 unit Sodium Chloride (1/2 Normal Saline) 1,000 mls @ 75 mls/hr IV ASDIR [facility] Last Admin: 11/17/17 22:30 Dose: 75 mls/hr Imatinib Mesylate (Gleevec (Restricted To Oncology) -) 400 mg PO DAILY [facility] Last Admin: 11/17/17 09:49 Dose: 400 mg Levetiracetam (Keppra -) 1,000 mg PO BID [facility] Last Admin: 11/17/17 22:32 Dose: 1,000 mg Losartan Potassium (Cozaar -) 50 mg PO DAILY [facility] Last Admin: 11/17/17 09:46 Dose: 50 mg Non-Formulary Medication (Patient's Own Med) 1 each NR Mo [facility] Nystatin (Nystop Powder -) 1 applic TP DAILY [facility] Last Admin: 11/17/17 09:48 Dose: 1 applic Oxycodone HCl (Roxicodone -) 7.5 mg PO TID PRN PRN Reason: PAIN LEVEL 6-10 Last Admin: 11/18/17 04:10 Dose: 7.5 mg Pantoprazole Sodium (Protonix -) 40 mg PO DAILY [facility] Last Admin: 11/17/17 09:46 Dose: 40 mg Polyethylene Glycol (Miralax (For Daily Use) -) 17 gm PO DAILY [facility] Last Admin: 11/17/17 13:52 Dose: 17 gm Pramipexole Dihydrochloride (Mirapex -) 0.5 mg PO TID [facility] Last Admin: 11/18/17 05:45 Dose: 0.5 mg Senna (Senna -) 1 tab PO DAILY PRN PRN Reason: CONSTIPATION Triamcinolone Acetonide (Aristocort 0.025% Ointment -) 1 applic TP DAILY [facility] Last Admin: 11/17/17 09:48 Dose: Not Given - Objective Vital Signs: Vital Signs Temperature 97.5 F L 11/18/17 05:53 Pulse Rate 68 11/18/17 05:53 Respiratory Rate 20 11/18/17 05:53 Blood Pressure 140/79 11/18/17 05:53 O2 Sat by Pulse Oximetry (%) 100 11/17/17 22:42 Constitutional: Yes: Well Nourished, No Distress, Calm Cardiovascular: Yes: Regular Rate and Rhythm Respiratory: Yes: Regular Gastrointestinal: Yes: Normal Bowel Sounds, Soft Musculoskeletal: Yes: WNL Extremities: Yes: WNL Edema: Yes Edema: LLE: Trace, RLE: Trace Peripheral Pulses WNL: Yes Neurological: Yes: Alert, Oriented Psychiatric: Yes: Alert, Oriented Labs: CBC, BMP 11/17/17 06:36 11/17/17 06:36 INR, PTT INR 1.16 (0.82-1.09) H 11/13/17 06:45 Fibrinogen 422.0 mg/dL (238-498) 11/10/17 05:15 Problem List - Problems (1) CML (chronic myelocytic leukemia) Assessment/Plan: -Oncology on board -on Gleevec Code(s): C92.10 - CHRONIC MYELOID LEUK, BCR/ABL-POSITIVE, NOT ACHIEVE REMIS (2) Chronic renal insufficiency, stage III (moderate) Assessment/Plan: -renal on board -Cr at baseline Code(s): N18.3 - CHRONIC KIDNEY DISEASE, STAGE 3 (MODERATE) (3) Anemia Assessment/Plan: -2/2 to CKD, chemo -Iron profile normal -Also check stool ob, b 12 and thyroid profile -transfuse if Hgb below 7.0 to avoid fluid overload Code(s): D64.9 - ANEMIA, UNSPECIFIED (4) Constipation Assessment/Plan: -on colace and senna -Add miralax Code(s): K59.00 - CONSTIPATION, UNSPECIFIED (5) Seizure Assessment/Plan: -Neurology on board -Pseudoseizures -Change IV keppra to po 1000 mg BID Code(s): R56.9 - UNSPECIFIED CONVULSIONS (6) Weakness Assessment/Plan: Seen by Physical therapy -refuses to go to SNF -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
[2017-11-18 07:36] LABS: BASO % 5.4 % (0-2.0); EOS % 12.6 % (0-4.5); HEMOGLOBIN 8.1 GM/dL (10.7-15.3); LYMPH % 37.5 % (8-40); MCH 27.8 pg (25.7-33.7); MCHC 32.6 g/dl (32.0-36.0); MEAN CELL VOLUME 85.2 fl (80-96); MEAN PLT VOLUME 7.9 fl (7.5-11.1); MONO % 7.9 % (3.8-10.2); NEUT % 36.6 % (42.8-82.8); PLATELET COUNT 715 K/MM3 (134-434); RBC 2.93 M/mm3 (3.60-5.2); RDW 16.5 % (11.6-15.6); WHITE BLOOD COUNT 3.1 K/mm3 (4.0-10.0)
[2017-11-18 07:58] LABS: ALBUMIN 2.6 g/dl (3.4-5.0); ANION GAP 5 (8-16); BLOOD UREA NITROGEN 20 mg/dL (7-18); CALCIUM 8.1 mg/dL (8.5-10.1); CHLORIDE 107 mmol/L (98-107); CO2 28 mmol/L (21-32); CREATININE 0.9 mg/dL (0.55-1.02); GLUCOSE,RANDOM 81 mg/dL (74-106); POTASSIUM 5.3 mmol/L (3.5-5.1); SGOT/AST 42 U/L (15-37); SGPT/ALT 36 U/L (12-78); SODIUM 140 mmol/L (136-145)
[2017-11-18 08:34] LABS: ALK PHOS 198 U/L (45-117); BILIRUBIN,TOTAL 0.2 mg/dL (0.2-1.0); TOT PROT 5.8 g/dl (6.4-8.2)
[2017-11-18] MEDS: TRIAMCINOLONE ACET 0.025% OINTMENT 15 GM TUBE TP SCH (09:02)
[2017-11-18] MEDS: FERROUS SO4 325 MG TABLET (FP) PO SCH (09:03)
[2017-11-18] MEDS: LOSARTAN POTASSIUM 50 MG TABLET (FP) PO SCH (09:03)
[2017-11-18] MEDS: ALLOPURINOL 300 MG TABLET (FP) PO SCH (09:03)
[2017-11-18] MEDS: amLODIPine BESYLATE 2.5 MG TABLET (FP) PO SCH (09:03)
[2017-11-18] MEDS: levETIRAcetam 500 MG TABLET (FP) PO SCH ×2 (09:03→22:38)
[2017-11-18] MEDS: POLYETHYLENE GLYCOL 3350 119 GM BTL PO SCH (09:04)
[2017-11-18] MEDS: NYSTATIN POWDER 100,000 UNITS/GM - 15 GM TOPICAL POWDER TP SCH (09:04)
[2017-11-18] MEDS: IMATINIB MESYLATE 100 MG TABLET PO SCH (09:04)
[2017-11-18] MEDS: PANTOPRAZOLE 40 MG TABLET (FP) PO SCH (09:06)
--- NOTE | 2017-11-18 11:29 | PN ---
Progress Note (short form) - Note Progress Note: Resting in NAD. No seizure. Denies CP or SOB. Intake & Output 11/15/17 11/16/17 11/17/17 11/18/17 23:59 23:59 23:59 23:59 Intake Total 5 1905 2615 945 Balance 2114 1904 2615 945 Last Vital Signs Temp Pulse Resp BP Pulse Ox 97.7 F 71 20 127/64 97 11/18/17 10:00 11/18/17 10:00 11/18/17 10:00 11/18/17 10:00 11/18/17 09:00 Active Medications Acetaminophen (Tylenol -) 650 mg PO Q4H PRN PRN Reason: FEVER Last Admin: 11/17/17 12:33 Dose: 650 mg Allopurinol (Zyloprim -) 300 mg PO DAILY [facility] Last Admin: 11/18/17 09:03 Dose: 300 mg Amlodipine Besylate (Norvasc -) 2.5 mg PO DAILY [facility] Last Admin: 11/18/17 09:03 Dose: 2.5 mg Calamine (Calamine 8% Topical Lotion -) 1 applic TP BID PRN PRN Reason: FOR ITCHING Last Admin: 11/15/17 21:39 Dose: 1 applic Calcium Gluconate (Calcium Gluconate 10% -) 2,000 mg IVPB ONCE PRN PRN Reason: tingling Clonazepam (Klonopin -) 1 mg PO TID [facility] Last Admin: 11/18/17 05:45 Dose: 1 mg Diphenhydramine HCl (Benadryl -) 25 mg PO Q6H PRN PRN Reason: FOR ITCHING Docusate Sodium (Colace -) 300 mg PO HS [facility] Last Admin: 11/17/17 22:31 Dose: 300 mg Ferrous Sulfate (Feosol -) 325 mg PO DAILY [facility] Last Admin: 11/18/17 09:03 Dose: 325 mg Gabapentin (Neurontin -) 400 mg PO TID [facility] Last Admin: 11/18/17 05:46 Dose: 400 mg Heparin Sodium (Porcine) (Heparin -) 5,000 unit SQ TID [facility] Last Admin: 11/18/17 05:46 Dose: 5,000 unit Sodium Chloride (1/2 Normal Saline) 1,000 mls @ 75 mls/hr IV ASDIR [facility] Last Admin: 11/17/17 22:30 Dose: 75 mls/hr Imatinib Mesylate (Gleevec (Restricted To Oncology) -) 400 mg PO DAILY [facility] Last Admin: 11/18/17 09:04 Dose: 400 mg Levetiracetam (Keppra -) 1,000 mg PO BID [facility] Last Admin: 11/18/17 09:03 Dose: 1,000 mg Losartan Potassium (Cozaar -) 50 mg PO DAILY [facility] Last Admin: 11/18/17 09:03 Dose: 50 mg Non-Formulary Medication (Patient's Own Med) 1 each NR Mo [facility] Nystatin (Nystop Powder -) 1 applic TP DAILY [facility] Last Admin: 11/18/17 09:04 Dose: 1 applic Oxycodone HCl (Roxicodone -) 7.5 mg PO TID PRN PRN Reason: PAIN LEVEL 6-10 Last Admin: 11/18/17 04:10 Dose: 7.5 mg Pantoprazole Sodium (Protonix -) 40 mg PO DAILY [facility] Last Admin: 11/18/17 09:06 Dose: 40 mg Polyethylene Glycol (Miralax (For Daily Use) -) 17 gm PO DAILY [facility] Last Admin: 11/18/17 09:04 Dose: 17 gm Pramipexole Dihydrochloride (Mirapex -) 0.5 mg PO TID [facility] Last Admin: 11/18/17 05:45 Dose: 0.5 mg Senna (Senna -) 1 tab PO DAILY PRN PRN Reason: CONSTIPATION Last Admin: 11/18/17 09:03 Dose: 1 tab Triamcinolone Acetonide (Aristocort 0.025% Ointment -) 1 applic TP DAILY [facility] Last Admin: 11/18/17 09:02 Dose: 1 applic Constitutional: Yes: Awake and alert, NAD Cardiovascular: Yes: Regular Rate and Rhythm Respiratory: Yes: scattered rhonchi Gastrointestinal: Yes: WNL, Normal Bowel Sounds Edema: No Peripheral Pulses WNL: Yes Neurological: Yes: Non-focal Skin: Minimal rash Labs: Laboratory Results - last 24 hr 11/17/17 11/18/17 11/18/17 10:00 06:00 06:00 WBC 3.1 L RBC 2.93 L Hgb 8.1 L Hct 25.0 L MCV 85.2 MCH 27.8 MCHC 32.6 RDW 16.5 H Plt Count 715 H MPV 7.9 Absolute Neuts (auto) 1.1 Neutrophils % 36.6 L Lymphocytes % 37.5 Monocytes % 7.9 Eosinophils % 12.6 H Basophils % 5.4 H* Nucleated RBC % 0 Sodium 140 Potassium 5.3 H Chloride 107 Carbon Dioxide 28 Anion Gap 5 L BUN 20 H Creatinine 0.9 Creat Clearance w eGFR > 60 Random Glucose 81 Calcium 8.1 L Total Bilirubin 0.2 AST 42 H ALT 36 Alkaline Phosphatase 198 H Total Protein 5.8 L Albumin 2.6 L Vitamin B12 3155 H Serum Folate 24 H TSH 4.52 H Free T4 0.87 Urine Color Ltyellow Urine Appearance Clear Urine pH 6.0 Ur Specific [place] 1.011 Urine Protein Negative Urine Glucose (UA) Negative Urine Ketones Negative Urine Blood Negative Urine Nitrite Negative Urine Bilirubin Negative Urine Urobilinogen Negative Ur Leukocyte Esterase Negative 11/18/17 06:00 WBC RBC Hgb Hct MCV MCH MCHC RDW Plt Count MPV Absolute Neuts (auto) Neutrophils % Lymphocytes % Monocytes % Eosinophils % Basophils % Nucleated RBC % Sodium Potassium Chloride Carbon Dioxide Anion Gap BUN Creatinine Creat Clearance w eGFR Random Glucose Calcium Total Bilirubin AST ALT Alkaline Phosphatase Total Protein Albumin Vitamin B12 Cancelled Serum Folate TSH Free T4 Urine Color Urine Appearance Urine pH Ur Specific [place] Urine Protein Urine Glucose (UA) Urine Ketones Urine Blood Urine Nitrite Urine Bilirubin Urine Urobilinogen Ur Leukocyte Esterase Problem List - Problems (1) Seizure Code(s): R56.9 - UNSPECIFIED CONVULSIONS (2) Spinal stenosis Code(s): M48.00 - SPINAL STENOSIS, SITE UNSPECIFIED (3) Thrombocytosis Code(s): D47.3 - ESSENTIAL (HEMORRHAGIC) THROMBOCYTHEMIA (4) Leukocytosis Code(s): D72.829 - ELEVATED WHITE BLOOD CELL COUNT, UNSPECIFIED Qualifiers: Leukocytosis type: unspecified Qualified Code(s): D72.829 - Elevated white blood cell count, unspecified (5) Hypertension Code(s): I10 - ESSENTIAL (PRIMARY) HYPERTENSION Assessment/Plan Chronic Myeloid Leukemia Leukocytosis and thrombocytosis New onset seizures Cervical spine stenosis/Degenerative disc disease MS Chronic pain Rash/itching possibly due to Gleevac Gleevac per Heme Hydrea per Heme Allopurinol Keppra Gabapentin Clonazepam Mirapex ASA 81mg Oxycodone for pain management VTE and GI prophylaxis Dr Major
--- NOTE | 2017-11-18 11:48 | PN ---
Progress Note, Physician Chief Complaint: Patient seen in her room. Itching better. " Doc, I dont feel good". Reports good urine output. History of Present Illness: 72 year old woman with PMhx of MS, Newly diagnosed CML with Thrombocytosis/ Leukocytosis with AMS and Cr of 1.3. H/o MS. Recent seizure. - Current Medication List Current Medications: Active Medications Acetaminophen (Tylenol -) 650 mg PO Q4H PRN PRN Reason: FEVER Last Admin: 11/17/17 12:33 Dose: 650 mg Allopurinol (Zyloprim -) 300 mg PO DAILY [facility] Last Admin: 11/18/17 09:03 Dose: 300 mg Amlodipine Besylate (Norvasc -) 2.5 mg PO DAILY [facility] Last Admin: 11/18/17 09:03 Dose: 2.5 mg Calamine (Calamine 8% Topical Lotion -) 1 applic TP BID PRN PRN Reason: FOR ITCHING Last Admin: 11/15/17 21:39 Dose: 1 applic Calcium Gluconate (Calcium Gluconate 10% -) 2,000 mg IVPB ONCE PRN PRN Reason: tingling Clonazepam (Klonopin -) 1 mg PO TID [facility] Last Admin: 11/18/17 05:45 Dose: 1 mg Diphenhydramine HCl (Benadryl -) 25 mg PO Q6H PRN PRN Reason: FOR ITCHING Docusate Sodium (Colace -) 300 mg PO HS [facility] Last Admin: 11/17/17 22:31 Dose: 300 mg Ferrous Sulfate (Feosol -) 325 mg PO DAILY [facility] Last Admin: 11/18/17 09:03 Dose: 325 mg Gabapentin (Neurontin -) 400 mg PO TID [facility] Last Admin: 11/18/17 05:46 Dose: 400 mg Heparin Sodium (Porcine) (Heparin -) 5,000 unit SQ TID [facility] Last Admin: 11/18/17 05:46 Dose: 5,000 unit Sodium Chloride (1/2 Normal Saline) 1,000 mls @ 75 mls/hr IV ASDIR [facility] Last Admin: 11/17/17 22:30 Dose: 75 mls/hr Imatinib Mesylate (Gleevec (Restricted To Oncology) -) 400 mg PO DAILY [facility] Last Admin: 11/18/17 09:04 Dose: 400 mg Levetiracetam (Keppra -) 1,000 mg PO BID [facility] Last Admin: 11/18/17 09:03 Dose: 1,000 mg Losartan Potassium (Cozaar -) 50 mg PO DAILY [facility] Last Admin: 11/18/17 09:03 Dose: 50 mg Non-Formulary Medication (Patient's Own Med) 1 each NR Mo [facility] Nystatin (Nystop Powder -) 1 applic TP DAILY [facility] Last Admin: 11/18/17 09:04 Dose: 1 applic Oxycodone HCl (Roxicodone -) 7.5 mg PO TID PRN PRN Reason: PAIN LEVEL 6-10 Last Admin: 11/18/17 04:10 Dose: 7.5 mg Pantoprazole Sodium (Protonix -) 40 mg PO DAILY [facility] Last Admin: 11/18/17 09:06 Dose: 40 mg Polyethylene Glycol (Miralax (For Daily Use) -) 17 gm PO DAILY [facility] Last Admin: 11/18/17 09:04 Dose: 17 gm Pramipexole Dihydrochloride (Mirapex -) 0.5 mg PO TID [facility] Last Admin: 11/18/17 05:45 Dose: 0.5 mg Senna (Senna -) 1 tab PO DAILY PRN PRN Reason: CONSTIPATION Last Admin: 11/18/17 09:03 Dose: 1 tab Triamcinolone Acetonide (Aristocort 0.025% Ointment -) 1 applic TP DAILY [facility] Last Admin: 11/18/17 09:02 Dose: 1 applic - Objective Vital Signs: Vital Signs Temperature 97.7 F 11/18/17 10:00 Pulse Rate 71 11/18/17 10:00 Respiratory Rate 20 11/18/17 10:00 Blood Pressure 127/64 11/18/17 10:00 O2 Sat by Pulse Oximetry (%) 97 11/18/17 09:00 Constitutional: Yes: Well Nourished, Pallor Eyes: Yes: Conjunctiva Clear HENT: Yes: Atraumatic Neck: Yes: Supple Cardiovascular: Yes: S1, S2 Respiratory: Yes: CTA Bilaterally, Diminished Gastrointestinal: Yes: Normal Bowel Sounds, Abdomen, Obese Genitourinary: No: CVA Tenderness - Left, CVA Tenderness - Right Extremities: No: Calf Tenderness Labs: CBC, BMP 11/18/17 06:00 11/18/17 06:00 INR, PTT INR 1.16 (0.82-1.09) H 11/13/17 06:45 Fibrinogen 422.0 mg/dL (238-498) 11/10/17 05:15 Problem List - Problems (1) Acute kidney failure Code(s): N17.9 - ACUTE KIDNEY FAILURE, UNSPECIFIED (2) CML (chronic myelocytic leukemia) Code(s): C92.10 - CHRONIC MYELOID LEUK, BCR/ABL-POSITIVE, NOT ACHIEVE REMIS (3) Fibromyalgia Code(s): M79.7 - FIBROMYALGIA (4) Hypothyroid Code(s): E03.9 - HYPOTHYROIDISM, UNSPECIFIED (5) Seizure Code(s): R56.9 - UNSPECIFIED CONVULSIONS (6) Weakness Code(s): R53.1 - WEAKNESS (7) Chronic renal insufficiency, stage III (moderate) Code(s): N18.3 - CHRONIC KIDNEY DISEASE, STAGE 3 (MODERATE) (8) Diabetes Code(s): E11.9 - TYPE 2 DIABETES MELLITUS WITHOUT COMPLICATIONS Qualifiers: Diabetes mellitus type: type 2 (9) History of CVA (cerebrovascular accident) Code(s): Z86.73 - PRSNL HX OF TIA (TIA), AND CEREB INFRC W/O RESID DEFICITS Assessment/Plan 72 year old woman with PMhx of MS, Newly diagnosed CML with thrombocytosis/ leukocytosis with AMS and ADELA. Has underlying CKD Renal functions are stable. Less likely to be Tumor lysis syndrome. minimal hyperkalemia. Will watch. ? Losartan. ? Heparin. Will monitor the renal functions with you. Mayte Price MD
[2017-11-18] MEDS: SODIUM CHLORIDE 0.45% 1,000 ML IV SCH ×2 (13:14→22:38)
[2017-11-18] MEDS: DOCUSATE SODIUM 100 MG CAPSULE (FP) PO SCH (22:38)
--- NOTE | 2017-11-18 23:46 | PN ---
Progress Note, Physician Chief Complaint: "pain everywhere" History of Present Illness: dm,type 2,hypothyroidism,cml,sp thromocytosis,now improved,feeling weak and in pain - Current Medication List Current Medications: Active Medications Acetaminophen (Tylenol -) 650 mg PO Q4H PRN PRN Reason: FEVER Last Admin: 11/17/17 12:33 Dose: 650 mg Allopurinol (Zyloprim -) 300 mg PO DAILY [facility] Last Admin: 11/18/17 09:03 Dose: 300 mg Amlodipine Besylate (Norvasc -) 2.5 mg PO DAILY [facility] Last Admin: 11/18/17 09:03 Dose: 2.5 mg Calamine (Calamine 8% Topical Lotion -) 1 applic TP BID PRN PRN Reason: FOR ITCHING Last Admin: 11/15/17 21:39 Dose: 1 applic Calcium Gluconate (Calcium Gluconate 10% -) 2,000 mg IVPB ONCE PRN PRN Reason: tingling Clonazepam (Klonopin -) 1 mg PO TID [facility] Last Admin: 11/18/17 22:38 Dose: 1 mg Diphenhydramine HCl (Benadryl -) 25 mg PO Q6H PRN PRN Reason: FOR ITCHING Docusate Sodium (Colace -) 300 mg PO HS [facility] Last Admin: 11/18/17 22:38 Dose: 300 mg Ferrous Sulfate (Feosol -) 325 mg PO DAILY [facility] Last Admin: 11/18/17 09:03 Dose: 325 mg Gabapentin (Neurontin -) 400 mg PO TID [facility] Last Admin: 11/18/17 22:38 Dose: 400 mg Heparin Sodium (Porcine) (Heparin -) 5,000 unit SQ TID [facility] Last Admin: 11/18/17 22:38 Dose: 5,000 unit Sodium Chloride (1/2 Normal Saline) 1,000 mls @ 75 mls/hr IV ASDIR [facility] Last Admin: 11/18/17 22:38 Dose: Not Given Imatinib Mesylate (Gleevec (Restricted To Oncology) -) 400 mg PO DAILY [facility] Last Admin: 11/18/17 09:04 Dose: 400 mg Levetiracetam (Keppra -) 1,000 mg PO BID [facility] Last Admin: 11/18/17 22:38 Dose: 1,000 mg Losartan Potassium (Cozaar -) 50 mg PO DAILY [facility] Last Admin: 11/18/17 09:03 Dose: 50 mg Non-Formulary Medication (Patient's Own Med) 1 each NR [facility] Nystatin (Nystop Powder -) 1 applic TP DAILY [facility] Last Admin: 11/18/17 09:04 Dose: 1 applic Oxycodone HCl (Roxicodone -) 7.5 mg PO TID PRN PRN Reason: PAIN LEVEL 6-10 Last Admin: 11/18/17 13:13 Dose: 7.5 mg Pantoprazole Sodium (Protonix -) 40 mg PO DAILY [facility] Last Admin: 11/18/17 09:06 Dose: 40 mg Polyethylene Glycol (Miralax (For Daily Use) -) 17 gm PO DAILY [facility] Last Admin: 11/18/17 09:04 Dose: 17 gm Pramipexole Dihydrochloride (Mirapex -) 0.5 mg PO TID [facility] Last Admin: 11/18/17 22:38 Dose: 0.5 mg Senna (Senna -) 1 tab PO DAILY PRN PRN Reason: CONSTIPATION Last Admin: 11/18/17 09:03 Dose: 1 tab Triamcinolone Acetonide (Aristocort 0.025% Ointment -) 1 applic TP DAILY [facility] Last Admin: 11/18/17 09:02 Dose: 1 applic - Objective Vital Signs: Vital Signs Temperature 98.1 F 11/18/17 18:00 Pulse Rate 74 11/18/17 18:00 Respiratory Rate 18 11/18/17 18:00 Blood Pressure 112/44 11/18/17 18:00 O2 Sat by Pulse Oximetry (%) 97 11/18/17 09:00 Constitutional: Yes: Calm Eyes: Yes: EOM Intact HENT: Yes: Normocephalic Neck: Yes: Thyromegaly Cardiovascular: Yes: Regular Rate and Rhythm Respiratory: Yes: CTA Bilaterally Gastrointestinal: Yes: Normal Bowel Sounds ...Rectal Exam: Yes: Deferred Genitourinary: Yes: WNL Musculoskeletal: Yes: WNL Extremities: Yes: WNL Neurological: Yes: Alert, Oriented Labs: CBC, BMP 11/18/17 06:00 11/18/17 06:00 INR, PTT INR 1.16 (0.82-1.09) H 11/13/17 06:45 Fibrinogen 422.0 mg/dL (238-498) 11/10/17 05:15 Problem List - Problems (1) Hypothyroid Code(s): E03.9 - HYPOTHYROIDISM, UNSPECIFIED (2) Spinal stenosis Code(s): M48.00 - SPINAL STENOSIS, SITE UNSPECIFIED (3) Weakness Code(s): R53.1 - WEAKNESS (4) Chronic pain of multiple joints Code(s): M25.50 - PAIN IN UNSPECIFIED JOINT; G89.29 - OTHER CHRONIC PAIN (5) Chronic use of opiate for therapeutic purpose 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 Assessment/Plan Current Active Problems Abnormal antibody titer (Acute) Acute kidney failure (Acute) CML (chronic myelocytic leukemia) (Acute) Constipation (Acute) Fibromyalgia (Acute) Hypothyroid (Acute) Left upper quadrant pain (Acute) Seizure (Acute) Spinal stenosis (Acute) Thrombocytosis (Acute) Thrombocytosis (Acute) UTI (urinary tract infection) (Acute) Weakness (Acute) Chronic pain of multiple joints (Chronic) Chronic renal insufficiency, stage III (moderate) (Chronic) Chronic use of opiate for therapeutic purpose (Chronic) Degenerative disc disease (Chronic) Diabetes mellitus with renal manifestations, controlled (Chronic) Leukocytosis (Chronic) Abnormal Lab Results 11/18/17 11/18/17 06:00 06:00 WBC 3.1 L RBC 2.93 L Hgb 8.1 L Hct 25.0 L RDW 16.5 H Plt Count 715 H Neutrophils % 36.6 L Eosinophils % 12.6 H Basophils % 5.4 H* Potassium 5.3 H Anion Gap 5 L BUN 20 H Calcium 8.1 L AST 42 H Alkaline Phosphatase 198 H Total Protein 5.8 L Albumin 2.6 L Vitamin B12 3155 H Serum Folate 24 H TSH 4.52 H plan: synthroid 25mcg daily bgm qid novolog insulin doses
[2017-11-19] MEDS: HEPARIN NA (PORCINE) 5,000 UNITS/ML 1ML VIAL SQ SCH ×3 (06:48→22:22)
[2017-11-19] MEDS: GABAPENTIN 400 MG CAPSULE (FP) PO SCH ×3 (06:49→22:21)
[2017-11-19] MEDS: PRAMIPEXOLE DIHYDROCHLORIDE 0.5 MG TABLET PO SCH ×3 (06:49→22:22)
[2017-11-19] MEDS: oxyCODONE HCL 5 MG TABLET PO PRN ×3 (06:49→22:23)
[2017-11-19] MEDS: LEVOTHYROXINE NA 25 MCG TABLET (FP) PO SCH (06:49)
[2017-11-19] MEDS: clonazePAM 0.5 MG TABLET PO SCH ×3 (06:53→22:23)
[2017-11-19] MEDS ORDERED: PT OWN MED DRAWER 7, Y5N ONE (09:08)
--- NOTE | 2017-11-19 09:19 | PN ---
Progress Note, Physician - Current Medication List Current Medications: Active Medications Acetaminophen (Tylenol -) 650 mg PO Q4H PRN PRN Reason: FEVER Last Admin: 11/17/17 12:33 Dose: 650 mg Allopurinol (Zyloprim -) 300 mg PO DAILY [facility] Last Admin: 11/18/17 09:03 Dose: 300 mg Amlodipine Besylate (Norvasc -) 2.5 mg PO DAILY [facility] Last Admin: 11/18/17 09:03 Dose: 2.5 mg Calamine (Calamine 8% Topical Lotion -) 1 applic TP BID PRN PRN Reason: FOR ITCHING Last Admin: 11/15/17 21:39 Dose: 1 applic Calcium Gluconate (Calcium Gluconate 10% -) 2,000 mg IVPB ONCE PRN PRN Reason: tingling Clonazepam (Klonopin -) 1 mg PO TID [facility] Last Admin: 11/19/17 06:53 Dose: 1 mg Diphenhydramine HCl (Benadryl -) 25 mg PO Q6H PRN PRN Reason: FOR ITCHING Docusate Sodium (Colace -) 300 mg PO HS [facility] Last Admin: 11/18/17 22:38 Dose: 300 mg Ferrous Sulfate (Feosol -) 325 mg PO DAILY [facility] Last Admin: 11/18/17 09:03 Dose: 325 mg Gabapentin (Neurontin -) 400 mg PO TID [facility] Last Admin: 11/19/17 06:49 Dose: 400 mg Heparin Sodium (Porcine) (Heparin -) 5,000 unit SQ TID [facility] Last Admin: 11/19/17 06:48 Dose: 5,000 unit Sodium Chloride (1/2 Normal Saline) 1,000 mls @ 75 mls/hr IV ASDIR [facility] Last Admin: 11/18/17 22:38 Dose: Not Given Imatinib Mesylate (Gleevec (Restricted To Oncology) -) 400 mg PO DAILY [facility] Last Admin: 11/18/17 09:04 Dose: 400 mg Levetiracetam (Keppra -) 1,000 mg PO BID [facility] Last Admin: 11/18/17 22:38 Dose: 1,000 mg Levothyroxine Sodium (Synthroid -) 25 mcg PO DAILY@0700 [facility] Last Admin: 11/19/17 06:49 Dose: 25 mcg Losartan Potassium (Cozaar -) 50 mg PO DAILY [facility] Last Admin: 11/18/17 09:03 Dose: 50 mg Non-Formulary Medication (Patient's Own Med) 1 each NR [facility] Nystatin (Nystop Powder -) 1 applic TP DAILY [facility] Last Admin: 11/18/17 09:04 Dose: 1 applic Oxycodone HCl (Roxicodone -) 7.5 mg PO TID PRN PRN Reason: PAIN LEVEL 6-10 Last Admin: 11/19/17 06:49 Dose: 7.5 mg Pantoprazole Sodium (Protonix -) 40 mg PO DAILY [facility] Last Admin: 11/18/17 09:06 Dose: 40 mg Polyethylene Glycol (Miralax (For Daily Use) -) 17 gm PO DAILY [facility] Last Admin: 11/18/17 09:04 Dose: 17 gm Pramipexole Dihydrochloride (Mirapex -) 0.5 mg PO TID [facility] Last Admin: 11/19/17 06:49 Dose: 0.5 mg Senna (Senna -) 1 tab PO DAILY PRN PRN Reason: CONSTIPATION Last Admin: 11/18/17 09:03 Dose: 1 tab Triamcinolone Acetonide (Aristocort 0.025% Ointment -) 1 applic TP DAILY [facility] Last Admin: 11/18/17 09:02 Dose: 1 applic - Objective Vital Signs: Vital Signs Temperature 97.7 F 11/19/17 05:51 Pulse Rate 73 11/19/17 05:51 Respiratory Rate 18 11/19/17 05:51 Blood Pressure 153/77 11/19/17 05:51 O2 Sat by Pulse Oximetry (%) 97 11/19/17 04:55 Cardiovascular: Yes: S1, S2 Respiratory: Yes: Regular, CTA Bilaterally Gastrointestinal: Yes: Normal Bowel Sounds, Soft Edema: No Neurological: Yes: Alert, Oriented Labs: CBC, BMP 11/18/17 06:00 11/18/17 06:00 INR, PTT INR 1.16 (0.82-1.09) H 11/13/17 06:45 Fibrinogen 422.0 mg/dL (238-498) 11/10/17 05:15 Problem List - Problems (1) UTI (urinary tract infection) Code(s): N39.0 - URINARY TRACT INFECTION, SITE NOT SPECIFIED Qualifiers: Urinary tract infection type: acute cystitis Hematuria presence: without hematuria Qualified Code(s): N30.00 - Acute cystitis without hematuria (2) Leukocytosis Code(s): D72.829 - ELEVATED WHITE BLOOD CELL COUNT, UNSPECIFIED Qualifiers: Leukocytosis type: unspecified Qualified Code(s): D72.829 - Elevated white blood cell count, unspecified (3) Anxiety and depression Code(s): F41.9 - ANXIETY DISORDER, UNSPECIFIED; F32.9 - MAJOR DEPRESSIVE DISORDER, SINGLE EPISODE, UNSPECIFIED (4) Diabetes Code(s): E11.9 - TYPE 2 DIABETES MELLITUS WITHOUT COMPLICATIONS Qualifiers: Diabetes mellitus type: type 2 (5) Chronic pain of multiple joints Code(s): M25.50 - PAIN IN UNSPECIFIED JOINT; G89.29 - OTHER CHRONIC PAIN (6) Multiple sclerosis Code(s): G35 - MULTIPLE SCLEROSIS (7) Weakness Code(s): R53.1 - WEAKNESS (8) Spinal stenosis Code(s): M48.00 - SPINAL STENOSIS, SITE UNSPECIFIED (9) Seizure Code(s): R56.9 - UNSPECIFIED CONVULSIONS (10) CML (chronic myelocytic leukemia) Code(s): C92.10 - CHRONIC MYELOID LEUK, BCR/ABL-POSITIVE, NOT ACHIEVE REMIS (11) Thrombocytosis Code(s): D47.3 - ESSENTIAL (HEMORRHAGIC) THROMBOCYTHEMIA Assessment/Plan - Problems (1) CML (chronic myelocytic leukemia) Assessment/Plan: -Oncology on board -on Gleevec Code(s): C92.10 - CHRONIC MYELOID LEUK, BCR/ABL-POSITIVE, NOT ACHIEVE REMIS (2) Chronic renal insufficiency, stage III (moderate) Assessment/Plan: -renal on board -Cr at baseline Code(s): N18.3 - CHRONIC KIDNEY DISEASE, STAGE 3 (MODERATE) (3) Anemia Assessment/Plan: -2/2 to CKD, chemo -Iron profile normal -Also check stool ob, b 12 and thyroid profile -transfuse if Hgb below 7.0 to avoid fluid overload Code(s): D64.9 - ANEMIA, UNSPECIFIED (4) Constipation Assessment/Plan: -on colace and senna -Add miralax Code(s): K59.00 - CONSTIPATION, UNSPECIFIED (5) Seizure Assessment/Plan: -Neurology on board -Pseudoseizures -Change IV keppra to po 1000 mg BID Code(s): R56.9 - UNSPECIFIED CONVULSIONS (6) Weakness Assessment/Plan: Seen by Physical therapy -refuses to go to SNF -Has [employer] at home -will go home when ready with VNS Code(s): R53.1 - WEAKNESS
[2017-11-19] MEDS: FERROUS SO4 325 MG TABLET (FP) PO SCH (10:04)
[2017-11-19] MEDS: ALLOPURINOL 300 MG TABLET (FP) PO SCH (10:05)
[2017-11-19] MEDS: PANTOPRAZOLE 40 MG TABLET (FP) PO SCH (10:05)
[2017-11-19] MEDS: amLODIPine BESYLATE 2.5 MG TABLET (FP) PO SCH (10:05)
[2017-11-19] MEDS: LOSARTAN POTASSIUM 50 MG TABLET (FP) PO SCH (10:06)
[2017-11-19] MEDS: levETIRAcetam 500 MG TABLET (FP) PO SCH ×2 (10:06→22:21)
[2017-11-19] MEDS: IMATINIB MESYLATE 100 MG TABLET PO SCH (10:08)
[2017-11-19] MEDS: POLYETHYLENE GLYCOL 3350 119 GM BTL PO SCH (10:10)
[2017-11-19 11:16] LABS: BASO % 5.1 % (0-2.0); EOS % 11.8 % (0-4.5); HEMOGLOBIN 7.5 GM/dL (10.7-15.3); LYMPH % 24.4 % (8-40); MCH 27.7 pg (25.7-33.7); MCHC 32.5 g/dl (32.0-36.0); MEAN CELL VOLUME 85.4 fl (80-96); MEAN PLT VOLUME 8.3 fl (7.5-11.1); MONO % 8.4 % (3.8-10.2); NEUT % 50.3 % (42.8-82.8); PLATELET COUNT 626 K/MM3 (134-434); RBC 2.69 M/mm3 (3.60-5.2); WHITE BLOOD COUNT 4.2 K/mm3 (4.0-10.0)
--- NOTE | 2017-11-19 11:40 | PN ---
Progress Note (short form) - Note Progress Note: Resting in NAD. No seizure. Denies CP or SOB. Intake & Output 11/16/17 11/17/17 11/18/17 11/19/17 23:59 23:59 23:59 23:59 Intake Total 1905 2615 2925 Balance 1905 2615 2925 Last Vital Signs Temp Pulse Resp BP Pulse Ox 97.8 F 80 18 155/76 100 11/19/17 10:00 11/19/17 10:00 11/19/17 10:00 11/19/17 10:00 11/19/17 09:00 Active Medications Acetaminophen (Tylenol -) 650 mg PO Q4H PRN PRN Reason: FEVER Last Admin: 11/17/17 12:33 Dose: 650 mg Allopurinol (Zyloprim -) 300 mg PO DAILY [facility] Last Admin: 11/19/17 10:05 Dose: 300 mg Amlodipine Besylate (Norvasc -) 2.5 mg PO DAILY [facility] Last Admin: 11/19/17 10:05 Dose: 2.5 mg Calamine (Calamine 8% Topical Lotion -) 1 applic TP BID PRN PRN Reason: FOR ITCHING Last Admin: 11/15/17 21:39 Dose: 1 applic Calcium Gluconate (Calcium Gluconate 10% -) 2,000 mg IVPB ONCE PRN PRN Reason: tingling Clonazepam (Klonopin -) 1 mg PO TID [facility] Last Admin: 11/19/17 06:53 Dose: 1 mg Diphenhydramine HCl (Benadryl -) 25 mg PO Q6H PRN PRN Reason: FOR ITCHING Docusate Sodium (Colace -) 300 mg PO HS [facility] Last Admin: 11/18/17 22:38 Dose: 300 mg Ferrous Sulfate (Feosol -) 325 mg PO DAILY [facility] Last Admin: 11/19/17 10:04 Dose: 325 mg Gabapentin (Neurontin -) 400 mg PO TID [facility] Last Admin: 11/19/17 06:49 Dose: 400 mg Heparin Sodium (Porcine) (Heparin -) 5,000 unit SQ TID [facility] Last Admin: 11/19/17 06:48 Dose: 5,000 unit Sodium Chloride (1/2 Normal Saline) 1,000 mls @ 75 mls/hr IV ASDIR [facility] Last Admin: 11/18/17 22:38 Dose: Not Given Imatinib Mesylate (Gleevec (Restricted To Oncology) -) 400 mg PO DAILY [facility] Last Admin: 11/19/17 10:08 Dose: 400 mg Levetiracetam (Keppra -) 1,000 mg PO BID [facility] Last Admin: 11/19/17 10:06 Dose: 1,000 mg Levothyroxine Sodium (Synthroid -) 25 mcg PO DAILY@0700 [facility] Last Admin: 11/19/17 06:49 Dose: 25 mcg Losartan Potassium (Cozaar -) 50 mg PO DAILY [facility] Last Admin: 11/19/17 10:06 Dose: 50 mg Non-Formulary Medication (Patient's Own Med) 1 each NR Mo [facility] Nystatin (Nystop Powder -) 1 applic TP DAILY [facility] Last Admin: 11/18/17 09:04 Dose: 1 applic Oxycodone HCl (Roxicodone -) 7.5 mg PO TID PRN PRN Reason: PAIN LEVEL 6-10 Last Admin: 11/19/17 06:49 Dose: 7.5 mg Pantoprazole Sodium (Protonix -) 40 mg PO DAILY [facility] Last Admin: 11/19/17 10:05 Dose: 40 mg Polyethylene Glycol (Miralax (For Daily Use) -) 17 gm PO DAILY [facility] Last Admin: 11/19/17 10:10 Dose: 17 gm Pramipexole Dihydrochloride (Mirapex -) 0.5 mg PO TID [facility] Last Admin: 11/19/17 06:49 Dose: 0.5 mg Senna (Senna -) 1 tab PO DAILY PRN PRN Reason: CONSTIPATION Last Admin: 11/18/17 09:03 Dose: 1 tab Triamcinolone Acetonide (Aristocort 0.025% Ointment -) 1 applic TP DAILY [facility] Last Admin: 11/18/17 09:02 Dose: 1 applic Constitutional: Yes: Awake and alert, NAD Cardiovascular: Yes: Regular Rate and Rhythm Respiratory: Yes: scattered rhonchi Gastrointestinal: Yes: WNL, Normal Bowel Sounds Edema: No Peripheral Pulses WNL: Yes Neurological: Yes: Non-focal Skin: Minimal rash Labs: Laboratory Results - last 24 hr 11/18/17 11/19/17 10:50 09:50 WBC 4.2 D RBC 2.69 L Hgb 7.5 L Hct 23.0 L MCV 85.4 MCH 27.7 MCHC 32.5 RDW 16.0 H Plt Count 626 H MPV 8.3 Absolute Neuts (auto) 2.1 Neutrophils % 50.3 D Lymphocytes % 24.4 D Monocytes % 8.4 Eosinophils % 11.8 H Basophils % 5.1 H* Nucleated RBC % 0 Stool Occult Blood Negative Problem List - Problems (1) Seizure Code(s): R56.9 - UNSPECIFIED CONVULSIONS (2) Spinal stenosis Code(s): M48.00 - SPINAL STENOSIS, SITE UNSPECIFIED (3) Thrombocytosis Code(s): D47.3 - ESSENTIAL (HEMORRHAGIC) THROMBOCYTHEMIA (4) Leukocytosis Code(s): D72.829 - ELEVATED WHITE BLOOD CELL COUNT, UNSPECIFIED Qualifiers: Leukocytosis type: unspecified Qualified Code(s): D72.829 - Elevated white blood cell count, unspecified (5) Hypertension Code(s): I10 - ESSENTIAL (PRIMARY) HYPERTENSION Assessment/Plan Chronic Myeloid Leukemia Leukocytosis and thrombocytosis New onset seizures Cervical spine stenosis/Degenerative disc disease MS Chronic pain Rash/itching possibly due to Gleevac Gleevac per Heme Hydrea per Heme Allopurinol Keppra Gabapentin Clonazepam Mirapex ASA 81mg Oxycodone for pain management VTE and GI prophylaxis Dr Major
[2017-11-19 11:49] LABS: ALBUMIN 2.6 g/dl (3.4-5.0); ANION GAP 6 (8-16); BLOOD UREA NITROGEN 20 mg/dL (7-18); CALCIUM 7.9 mg/dL (8.5-10.1); CHLORIDE 106 mmol/L (98-107); CO2 27 mmol/L (21-32); GLUCOSE,RANDOM 141 mg/dL (74-106); POTASSIUM 5.2 mmol/L (3.5-5.1); SGOT/AST 31 U/L (15-37); SGPT/ALT 31 U/L (12-78); SODIUM 139 mmol/L (136-145)
[2017-11-19 11:52] LABS: ALK PHOS 187 U/L (45-117); BILIRUBIN,TOTAL 0.2 mg/dL (0.2-1.0); TOT PROT 5.6 g/dl (6.4-8.2)
--- NOTE | 2017-11-19 12:22 | PN ---
Progress Note, Physician Chief Complaint: Patient seen in her room. No new complaints. No chest pain, no shortness of breath. mainatins good urine output. History of Present Illness: 72 year old woman with PMhx of MS, Newly diagnosed CML with Thrombocytosis/ Leukocytosis with AMS and Cr of 1.3. H/o MS. Recent seizure. Renal functions have improved since. - Current Medication List Current Medications: Active Medications Acetaminophen (Tylenol -) 650 mg PO Q4H PRN PRN Reason: FEVER Last Admin: 11/17/17 12:33 Dose: 650 mg Allopurinol (Zyloprim -) 300 mg PO DAILY [facility] Last Admin: 11/19/17 10:05 Dose: 300 mg Amlodipine Besylate (Norvasc -) 2.5 mg PO DAILY [facility] Last Admin: 11/19/17 10:05 Dose: 2.5 mg Calamine (Calamine 8% Topical Lotion -) 1 applic TP BID PRN PRN Reason: FOR ITCHING Last Admin: 11/15/17 21:39 Dose: 1 applic Calcium Gluconate (Calcium Gluconate 10% -) 2,000 mg IVPB ONCE PRN PRN Reason: tingling Clonazepam (Klonopin -) 1 mg PO TID [facility] Last Admin: 11/19/17 06:53 Dose: 1 mg Diphenhydramine HCl (Benadryl -) 25 mg PO Q6H PRN PRN Reason: FOR ITCHING Docusate Sodium (Colace -) 300 mg PO HS [facility] Last Admin: 11/18/17 22:38 Dose: 300 mg Ferrous Sulfate (Feosol -) 325 mg PO DAILY [facility] Last Admin: 11/19/17 10:04 Dose: 325 mg Gabapentin (Neurontin -) 400 mg PO TID [facility] Last Admin: 11/19/17 06:49 Dose: 400 mg Heparin Sodium (Porcine) (Heparin -) 5,000 unit SQ TID [facility] Last Admin: 11/19/17 06:48 Dose: 5,000 unit Sodium Chloride (1/2 Normal Saline) 1,000 mls @ 75 mls/hr IV ASDIR [facility] Last Admin: 11/18/17 22:38 Dose: Not Given Imatinib Mesylate (Gleevec (Restricted To Oncology) -) 400 mg PO DAILY [facility] Last Admin: 11/19/17 10:08 Dose: 400 mg Levetiracetam (Keppra -) 1,000 mg PO BID [facility] Last Admin: 11/19/17 10:06 Dose: 1,000 mg Levothyroxine Sodium (Synthroid -) 25 mcg PO DAILY@0700 [facility] Last Admin: 11/19/17 06:49 Dose: 25 mcg Losartan Potassium (Cozaar -) 50 mg PO DAILY [facility] Last Admin: 11/19/17 10:06 Dose: 50 mg Non-Formulary Medication (Patient's Own Med) 1 each NR Mo [facility] Nystatin (Nystop Powder -) 1 applic TP DAILY [facility] Last Admin: 11/18/17 09:04 Dose: 1 applic Oxycodone HCl (Roxicodone -) 7.5 mg PO TID PRN PRN Reason: PAIN LEVEL 6-10 Last Admin: 11/19/17 06:49 Dose: 7.5 mg Pantoprazole Sodium (Protonix -) 40 mg PO DAILY [facility] Last Admin: 11/19/17 10:05 Dose: 40 mg Polyethylene Glycol (Miralax (For Daily Use) -) 17 gm PO DAILY [facility] Last Admin: 11/19/17 10:10 Dose: 17 gm Pramipexole Dihydrochloride (Mirapex -) 0.5 mg PO TID [facility] Last Admin: 11/19/17 06:49 Dose: 0.5 mg Senna (Senna -) 1 tab PO DAILY PRN PRN Reason: CONSTIPATION Last Admin: 11/18/17 09:03 Dose: 1 tab Triamcinolone Acetonide (Aristocort 0.025% Ointment -) 1 applic TP DAILY [facility] Last Admin: 11/18/17 09:02 Dose: 1 applic - Objective Vital Signs: Vital Signs Temperature 97.8 F 11/19/17 10:00 Pulse Rate 80 11/19/17 10:00 Respiratory Rate 18 11/19/17 10:00 Blood Pressure 155/76 11/19/17 10:00 O2 Sat by Pulse Oximetry (%) 100 11/19/17 09:00 Constitutional: Yes: Anxious Eyes: Yes: Conjunctiva Clear Cardiovascular: Yes: Regular Rate and Rhythm, S1, S2 Respiratory: Yes: CTA Bilaterally, Diminished Genitourinary: Yes: Anuria, Bladder Distention Musculoskeletal: Yes: Back Pain, Joint Stiffness Labs: CBC, BMP 11/19/17 09:50 11/19/17 09:50 INR, PTT INR 1.16 (0.82-1.09) H 11/13/17 06:45 Fibrinogen 422.0 mg/dL (238-498) 11/10/17 05:15 Problem List - Problems (1) Acute kidney failure Code(s): N17.9 - ACUTE KIDNEY FAILURE, UNSPECIFIED (2) CML (chronic myelocytic leukemia) Code(s): C92.10 - CHRONIC MYELOID LEUK, BCR/ABL-POSITIVE, NOT ACHIEVE REMIS (3) Fibromyalgia Code(s): M79.7 - FIBROMYALGIA (4) Hypothyroid Code(s): E03.9 - HYPOTHYROIDISM, UNSPECIFIED (5) Seizure Code(s): R56.9 - UNSPECIFIED CONVULSIONS (6) Weakness Code(s): R53.1 - WEAKNESS (7) Chronic renal insufficiency, stage III (moderate) Code(s): N18.3 - CHRONIC KIDNEY DISEASE, STAGE 3 (MODERATE) (8) Diabetes Code(s): E11.9 - TYPE 2 DIABETES MELLITUS WITHOUT COMPLICATIONS Qualifiers: Diabetes mellitus type: type 2 (9) History of CVA (cerebrovascular accident) Code(s): Z86.73 - PRSNL HX OF TIA (TIA), AND CEREB INFRC W/O RESID DEFICITS Assessment/Plan 72 year old woman with PMhx of MS, Newly diagnosed CML with thrombocytosis/ leukocytosis with AMS and ADELA. Renal functions are stable. Less likely to be Tumor lysis syndrome. minimal Hyperkalemia, may be because of ? Thrombocytosis? Heparin, ? Losartan. No specific therapy at this point. Will monitor the renal functions with you. Mayte Price MD
[2017-11-19] MEDS: TRIAMCINOLONE ACET 0.025% OINTMENT 15 GM TUBE TP SCH (13:37)
[2017-11-19] MEDS: NYSTATIN POWDER 100,000 UNITS/GM - 15 GM TOPICAL POWDER TP SCH (13:37)
[2017-11-19] MEDS: SODIUM CHLORIDE 0.45% 1,000 ML IV SCH (15:18)
[2017-11-19 18:40] LABS: ANISOCYTOSIS 1+; PLATELET ESTIMATE INCREASED
[2017-11-19] MEDS: DOCUSATE SODIUM 100 MG CAPSULE (FP) PO SCH (22:22)
--- NOTE | 2017-11-19 23:21 | PN ---
Progress Note (short form) - Note Progress Note: Patient seen and examined Alert and oriented in name, place clinically improved AFVSS Obese Cor: RSR, No murmurs, No gallops Lungs: Clear to P&A Abd: Soft, Normal bowel sounds, No organomegaly, mild diffuse tenderness, no guarding or rigidity Ext:No significant edema Labs/Meds reviewed A/P 72 y/o patient with thrombocytosis/leukocytosis, new diagnosis of CML , late chronic phase, h/o MS and with new onset seizures on allopurinol/fluids On gleevec 400mg daily clinically improved counts stable anemia--will check w/u ? chronic disease, myelosuppression may need to transfuse PRBCs prior to discharge d/c planning
[2017-11-20] MEDS: GABAPENTIN 400 MG CAPSULE (FP) PO SCH ×3 (05:59→21:27)
[2017-11-20] MEDS: clonazePAM 0.5 MG TABLET PO SCH ×3 (05:59→21:28)
[2017-11-20] MEDS: PRAMIPEXOLE DIHYDROCHLORIDE 0.5 MG TABLET PO SCH ×3 (06:00→21:29)
[2017-11-20] MEDS: HEPARIN NA (PORCINE) 5,000 UNITS/ML 1ML VIAL SQ SCH ×3 (06:01→21:28)
[2017-11-20] MEDS: oxyCODONE HCL 5 MG TABLET PO PRN ×2 (06:01→15:23)
[2017-11-20] MEDS: LEVOTHYROXINE NA 25 MCG TABLET (FP) PO SCH (06:02)
[2017-11-20 08:11] LABS: CHLORIDE 104 mmol/L (98-107); POTASSIUM 5.1 mmol/L (3.5-5.1); SODIUM 137 mmol/L (136-145)
[2017-11-20 08:35] LABS: ALBUMIN 2.6 g/dl (3.4-5.0); ALK PHOS 180 U/L (45-117); ANION GAP 5 (8-16); BILIRUBIN,TOTAL 0.2 mg/dL (0.2-1.0); BLOOD UREA NITROGEN 23 mg/dL (7-18); CALCIUM 7.9 mg/dL (8.5-10.1); CO2 28 mmol/L (21-32); GLUCOSE,RANDOM 79 mg/dL (74-106); SGOT/AST 28 U/L (15-37); SGPT/ALT 28 U/L (12-78); TOT PROT 5.8 g/dl (6.4-8.2)
[2017-11-20] MEDS: PANTOPRAZOLE 40 MG TABLET (FP) PO SCH (11:00)
[2017-11-20] MEDS: FERROUS SO4 325 MG TABLET (FP) PO SCH (11:00)
[2017-11-20] MEDS ORDERED: PT OWN MED DRAWER 7, Y5N ONE (11:00)
[2017-11-20] MEDS: levETIRAcetam 500 MG TABLET (FP) PO SCH ×2 (11:00→21:27)
[2017-11-20] MEDS: amLODIPine BESYLATE 2.5 MG TABLET (FP) PO SCH (11:01)
[2017-11-20] MEDS: ALLOPURINOL 300 MG TABLET (FP) PO SCH (11:01)
[2017-11-20] MEDS: NYSTATIN POWDER 100,000 UNITS/GM - 15 GM TOPICAL POWDER TP SCH (11:02)
[2017-11-20] MEDS: LOSARTAN POTASSIUM 50 MG TABLET (FP) PO SCH (11:06)
[2017-11-20] MEDS: TRIAMCINOLONE ACET 0.025% OINTMENT 15 GM TUBE TP SCH (11:06)
[2017-11-20] MEDS: POLYETHYLENE GLYCOL 3350 119 GM BTL PO SCH (11:08)
[2017-11-20] MEDS: ACETAMINOPHEN 325 MG TABLET (FP) PO PRN (11:19)
--- NOTE | 2017-11-20 11:40 | PN ---
Progress Note (short form) - Note Progress Note: Resting in NAD. No seizure. Denies CP or SOB. Intake & Output 11/17/17 11/18/17 11/19/17 11/20/17 23:59 23:59 23:59 23:59 Intake Total 2615 2925 1214 600 Balance 2615 2925 1214 600 Last Vital Signs Temp Pulse Resp BP Pulse Ox 98.3 F 71 18 145/67 100 11/20/17 06:38 11/20/17 06:38 11/20/17 06:38 11/20/17 06:38 11/19/17 21:00 Active Medications Acetaminophen (Tylenol -) 650 mg PO Q4H PRN PRN Reason: FEVER Last Admin: 11/20/17 11:19 Dose: 650 mg Allopurinol (Zyloprim -) 300 mg PO DAILY [facility] Last Admin: 11/20/17 11:01 Dose: 300 mg Amlodipine Besylate (Norvasc -) 2.5 mg PO DAILY [facility] Last Admin: 11/20/17 11:01 Dose: 2.5 mg Calamine (Calamine 8% Topical Lotion -) 1 applic TP BID PRN PRN Reason: FOR ITCHING Last Admin: 11/15/17 21:39 Dose: 1 applic Clonazepam (Klonopin -) 1 mg PO TID [facility] Last Admin: 11/20/17 05:59 Dose: 1 mg Diphenhydramine HCl (Benadryl -) 25 mg PO Q6H PRN PRN Reason: FOR ITCHING Last Admin: 11/19/17 22:25 Dose: 25 mg Docusate Sodium (Colace -) 300 mg PO HS [facility] Last Admin: 11/19/17 22:22 Dose: 300 mg Ferrous Sulfate (Feosol -) 325 mg PO DAILY [facility] Last Admin: 11/20/17 11:00 Dose: 325 mg Gabapentin (Neurontin -) 400 mg PO TID [facility] Last Admin: 11/20/17 05:59 Dose: 400 mg Heparin Sodium (Porcine) (Heparin -) 5,000 unit SQ TID [facility] Last Admin: 11/20/17 06:01 Dose: 5,000 unit Sodium Chloride (1/2 Normal Saline) 1,000 mls @ 75 mls/hr IV ASDIR [facility] Last Admin: 11/19/17 15:18 Dose: Not Given Imatinib Mesylate (Gleevec (Restricted To Oncology) -) 400 mg PO DAILY [facility] Last Admin: 11/19/17 10:08 Dose: 400 mg Levetiracetam (Keppra -) 1,000 mg PO BID [facility] Last Admin: 11/20/17 11:00 Dose: 1,000 mg Levothyroxine Sodium (Synthroid -) 25 mcg PO DAILY@0700 [facility] Last Admin: 11/20/17 06:02 Dose: 25 mcg Losartan Potassium (Cozaar -) 50 mg PO DAILY [facility] Last Admin: 11/20/17 11:06 Dose: 50 mg Non-Formulary Medication (Patient's Own Med) 1 each NR Mo [facility] Nystatin (Nystop Powder -) 1 applic TP DAILY [facility] Last Admin: 11/20/17 11:02 Dose: Not Given Oxycodone HCl (Roxicodone -) 7.5 mg PO TID PRN PRN Reason: PAIN LEVEL 6-10 Last Admin: 11/20/17 06:01 Dose: 7.5 mg Pantoprazole Sodium (Protonix -) 40 mg PO DAILY [facility] Last Admin: 11/20/17 11:00 Dose: 40 mg Polyethylene Glycol (Miralax (For Daily Use) -) 17 gm PO DAILY [facility] Last Admin: 11/20/17 11:08 Dose: 17 gm Pramipexole Dihydrochloride (Mirapex -) 0.5 mg PO TID [facility] Last Admin: 11/20/17 06:00 Dose: 0.5 mg Senna (Senna -) 1 tab PO DAILY PRN PRN Reason: CONSTIPATION Last Admin: 11/18/17 09:03 Dose: 1 tab Triamcinolone Acetonide (Aristocort 0.025% Ointment -) 1 applic TP DAILY [facility] Last Admin: 11/20/17 11:06 Dose: Not Given Constitutional: Yes: Awake and alert, NAD Cardiovascular: Yes: Regular Rate and Rhythm Respiratory: Yes: scattered rhonchi Gastrointestinal: Yes: WNL, Normal Bowel Sounds Edema: No Peripheral Pulses WNL: Yes Neurological: Yes: Non-focal Skin: Minimal rash Labs: Laboratory Results - last 24 hr 11/19/17 11/19/17 11/20/17 09:50 09:50 06:15 Total Counted 100 Neutrophils % (Manual) 50.0 D Band Neutrophils % 1.0 Lymphocytes % (Manual) 25.0 D Monocytes % (Manual) 8 D Eosinophils % (Manual) 14.0 H D Basophils % (Manual) 2.0 Hypochromia 1+ Platelet Estimate Increased Platelet Comment No clumping noted Polychromasia 1+ Anisocytosis 1+ Microcytosis 1+ Sodium 139 137 Potassium 5.2 H 5.1 Chloride 106 104 Carbon Dioxide 27 28 Anion Gap 6 L 5 L BUN 20 H 23 H Creatinine 1.0 1.0 Creat Clearance w eGFR 54.50 54.50 Random Glucose 141 H 79 Calcium 7.9 L 7.9 L Phosphorus 4.0 Total Bilirubin 0.2 0.2 AST 31 28 ALT 31 28 Alkaline Phosphatase 187 H 180 H Total Protein 5.6 L 5.8 L Albumin 2.6 L 2.6 L Problem List - Problems (1) Seizure Code(s): R56.9 - UNSPECIFIED CONVULSIONS (2) Spinal stenosis Code(s): M48.00 - SPINAL STENOSIS, SITE UNSPECIFIED (3) Thrombocytosis Code(s): D47.3 - ESSENTIAL (HEMORRHAGIC) THROMBOCYTHEMIA (4) Leukocytosis Code(s): D72.829 - ELEVATED WHITE BLOOD CELL COUNT, UNSPECIFIED Qualifiers: Leukocytosis type: unspecified Qualified Code(s): D72.829 - Elevated white blood cell count, unspecified (5) Hypertension Code(s): I10 - ESSENTIAL (PRIMARY) HYPERTENSION Assessment/Plan Chronic Myeloid Leukemia Leukocytosis and thrombocytosis New onset seizures Cervical spine stenosis/Degenerative disc disease MS Chronic pain Rash/itching possibly due to Gleevac Gleevac per Heme Allopurinol Keppra Gabapentin Clonazepam Mirapex ASA 81mg Oxycodone for pain management VTE and GI prophylaxis Dr Major
--- NOTE | 2017-11-20 12:12 | PN ---
Progress Note (short form) - Note Progress Note: pt seen and examined. Constitutional: Yes: in no Distress HENT: Yes: Atraumatic, Normocephalic Neck: Yes: Supple Cardiovascular: Yes: Regular Rate and Rhythm Respiratory: Yes: Regular Gastrointestinal: Yes: Soft, Abdomen, Obese, Tenderness Edema: Yes Neurological: Yes: AAOX3 Last Vital Signs Temp Pulse Resp BP Pulse Ox 98.3 F 71 18 145/67 100 11/20/17 06:38 11/20/17 06:38 11/20/17 06:38 11/20/17 06:38 11/19/17 21:00 CBC, BMP 11/19/17 09:50 11/20/17 06:15 Current Medications Generic Name Dose Route Start Last Admin Trade Name Freq PRN Reason Stop Dose Admin Acetaminophen 650 mg 11/15/17 18:36 11/20/17 11:19 Tylenol - PO 650 mg Q4H PRN Administration FEVER Allopurinol 300 mg 11/16/17 10:00 11/20/17 11:01 Zyloprim - PO 300 mg DAILY [facility] Administration Amlodipine Besylate 2.5 mg 11/16/17 10:00 11/20/17 11:01 Norvasc - PO 2.5 mg DAILY [facility] Administration Calamine 1 applic 11/15/17 18:36 11/15/17 21:39 Calamine 8% Topical Lotion - TP 1 applic BID PRN Administration FOR ITCHING Clonazepam 1 mg 11/16/17 22:45 11/20/17 05:59 Klonopin - PO 1 mg TID [facility] Administration Diphenhydramine HCl 25 mg 11/18/17 07:16 11/19/17 22:25 Benadryl - PO 25 mg Q6H PRN Administration FOR ITCHING Docusate Sodium 300 mg 11/15/17 22:00 11/19/17 22:22 Colace - PO 300 mg HS [facility] Administration Ferrous Sulfate 325 mg 11/16/17 10:00 11/20/17 11:00 Feosol - PO 325 mg DAILY [facility] Administration Gabapentin 400 mg 11/15/17 22:00 11/20/17 05:59 Neurontin - PO 400 mg TID [facility] Administration Heparin Sodium (Porcine) 5,000 unit 11/15/17 22:00 11/20/17 06:01 Heparin - SQ 5,000 unit TID [facility] Administration Sodium Chloride 1,000 mls @ 75 mls/hr 11/16/17 14:45 11/19/17 15:18 1/2 Normal Saline IV Not Given ASDIR [facility] Imatinib Mesylate 400 mg 11/16/17 10:00 11/19/17 10:08 Gleevec (Restricted To Oncology) - PO 400 mg DAILY [facility] Administration Levetiracetam 1,000 mg 11/17/17 22:00 11/20/17 11:00 Keppra - PO 1,000 mg BID [facility] Administration Levothyroxine Sodium 25 mcg 11/19/17 07:00 11/20/17 06:02 Synthroid - PO 25 mcg DAILY@0700 [facility] Administration Losartan Potassium 50 mg 11/16/17 10:00 11/20/17 11:06 Cozaar - PO 50 mg DAILY [facility] Administration Non-Formulary Medication 1 each 11/19/17 15:15 Patient's Own Med NR Mo [facility] Nystatin 1 applic 11/16/17 10:00 11/20/17 11:02 Nystop Powder - TP Not Given DAILY [facility] Pantoprazole Sodium 40 mg 11/16/17 10:00 11/20/17 11:00 Protonix - PO 40 mg DAILY [facility] Administration Polyethylene Glycol 17 gm 11/17/17 12:00 11/20/17 11:08 Miralax (For Daily Use) - PO 17 gm DAILY [facility] Administration Pramipexole Dihydrochloride 0.5 mg 11/15/17 22:00 11/20/17 06:00 Mirapex - PO 0.5 mg TID [facility] Administration Senna 1 tab 11/15/17 18:36 11/18/17 09:03 Senna - PO 1 tab DAILY PRN Administration CONSTIPATION Triamcinolone Acetonide 1 applic 11/16/17 10:00 11/20/17 11:06 Aristocort 0.025% Ointment - TP Not Given DAILY [facility] Chronic Myeloid Leukemia--- BCR ABL positive (Translocation t9;22) -overall heme parameters improving. - c/w gleevac present doses -PRBCs today PRIOR to DC -for Office f.u -refused SNF. Problem List - Problems (1) Leukocytosis Code(s): D72.829 - ELEVATED WHITE BLOOD CELL COUNT, UNSPECIFIED Qualifiers: Leukocytosis type: unspecified Qualified Code(s): D72.829 - Elevated white blood cell count, unspecified (2) Thrombocytosis Code(s): D47.3 - ESSENTIAL (HEMORRHAGIC) THROMBOCYTHEMIA (3) Chronic pain of multiple joints Code(s): M25.50 - PAIN IN UNSPECIFIED JOINT; G89.29 - OTHER CHRONIC PAIN
[2017-11-20 12:44] LABS: BASO % 4.8 % (0-2.0); EOS % 7.4 % (0-4.5); HEMATOCRIT 22.5 % (32.4-45.2); HEMOGLOBIN 7.4 GM/dL (10.7-15.3); LYMPH % 28.8 % (8-40); MCH 27.9 pg (25.7-33.7); MEAN CELL VOLUME 84.4 fl (80-96); MEAN PLT VOLUME 7.6 fl (7.5-11.1); MONO % 9.4 % (3.8-10.2); NEUT % 49.6 % (42.8-82.8); PLATELET COUNT 573 K/MM3 (134-434); RBC 2.66 M/mm3 (3.60-5.2); RDW 15.9 % (11.6-15.6); WHITE BLOOD COUNT 4.1 K/mm3 (4.0-10.0)
[2017-11-20] MEDS: IMATINIB MESYLATE 100 MG TABLET PO SCH (14:56)
--- NOTE | 2017-11-20 15:26 | PN ---
Progress Note, Physician Chief Complaint: Patient seen in her room. No new complaints. No chest pain, no shortness of breath. Mainatins good urine output. History of Present Illness: 72 year old woman with PMhx of MS, Newly diagnosed CML with Thrombocytosis/ Leukocytosis with AMS and Cr of 1.3. H/o MS. Recent seizure. Renal functions have improved since. - Current Medication List Current Medications: Active Medications Acetaminophen (Tylenol -) 650 mg PO Q4H PRN PRN Reason: FEVER Last Admin: 11/20/17 11:19 Dose: 650 mg Allopurinol (Zyloprim -) 300 mg PO DAILY [facility] Last Admin: 11/20/17 11:01 Dose: 300 mg Amlodipine Besylate (Norvasc -) 2.5 mg PO DAILY [facility] Last Admin: 11/20/17 11:01 Dose: 2.5 mg Calamine (Calamine 8% Topical Lotion -) 1 applic TP BID PRN PRN Reason: FOR ITCHING Last Admin: 11/15/17 21:39 Dose: 1 applic Clonazepam (Klonopin -) 1 mg PO TID [facility] Last Admin: 11/20/17 15:04 Dose: 1 mg Diphenhydramine HCl (Benadryl -) 25 mg PO Q6H PRN PRN Reason: FOR ITCHING Last Admin: 11/19/17 22:25 Dose: 25 mg Docusate Sodium (Colace -) 300 mg PO HS [facility] Last Admin: 11/19/17 22:22 Dose: 300 mg Ferrous Sulfate (Feosol -) 325 mg PO DAILY [facility] Last Admin: 11/20/17 11:00 Dose: 325 mg Gabapentin (Neurontin -) 400 mg PO TID [facility] Last Admin: 11/20/17 15:03 Dose: 400 mg Heparin Sodium (Porcine) (Heparin -) 5,000 unit SQ TID [facility] Last Admin: 11/20/17 15:03 Dose: 5,000 unit Sodium Chloride (1/2 Normal Saline) 1,000 mls @ 75 mls/hr IV ASDIR [facility] Last Admin: 11/19/17 15:18 Dose: Not Given Imatinib Mesylate (Gleevec (Restricted To Oncology) -) 400 mg PO DAILY [facility] Last Admin: 11/20/17 14:56 Dose: 400 mg Levetiracetam (Keppra -) 1,000 mg PO BID [facility] Last Admin: 11/20/17 11:00 Dose: 1,000 mg Levothyroxine Sodium (Synthroid -) 25 mcg PO DAILY@0700 [facility] Last Admin: 11/20/17 06:02 Dose: 25 mcg Losartan Potassium (Cozaar -) 50 mg PO DAILY [facility] Last Admin: 11/20/17 11:06 Dose: 50 mg Non-Formulary Medication (Patient's Own Med) 1 each NR Mo [facility] Nystatin (Nystop Powder -) 1 applic TP DAILY [facility] Last Admin: 11/20/17 11:02 Dose: Not Given Oxycodone HCl (Roxicodone -) 7.5 mg PO Q8H PRN PRN Reason: PAIN LEVEL 7 - 10 Last Admin: 11/20/17 15:23 Dose: 7.5 mg Pantoprazole Sodium (Protonix -) 40 mg PO DAILY [facility] Last Admin: 11/20/17 11:00 Dose: 40 mg Polyethylene Glycol (Miralax (For Daily Use) -) 17 gm PO DAILY [facility] Last Admin: 11/20/17 11:08 Dose: 17 gm Pramipexole Dihydrochloride (Mirapex -) 0.5 mg PO TID [facility] Last Admin: 11/20/17 15:03 Dose: 0.5 mg Senna (Senna -) 1 tab PO DAILY PRN PRN Reason: CONSTIPATION Last Admin: 11/18/17 09:03 Dose: 1 tab Triamcinolone Acetonide (Aristocort 0.025% Ointment -) 1 applic TP DAILY [facility] Last Admin: 11/20/17 11:06 Dose: Not Given - Objective Vital Signs: Vital Signs Temperature 98.3 F 11/20/17 06:38 Pulse Rate 71 11/20/17 06:38 Respiratory Rate 18 11/20/17 06:38 Blood Pressure 145/67 11/20/17 06:38 O2 Sat by Pulse Oximetry (%) 100 11/19/17 21:00 Constitutional: Yes: No Distress, Calm Eyes: Yes: Conjunctiva Clear HENT: Yes: Normocephalic Cardiovascular: Yes: Regular Rate and Rhythm, S1, S2 Respiratory: Yes: CTA Bilaterally, Diminished Gastrointestinal: Yes: Normal Bowel Sounds, Soft Genitourinary: No: Bladder Distention, CVA Tenderness - Left, CVA Tenderness - Right Edema: No Neurological: Yes: Alert, Oriented Labs: CBC, BMP 11/20/17 12:30 11/20/17 06:15 INR, PTT INR 1.16 (0.82-1.09) H 11/13/17 06:45 Fibrinogen 422.0 mg/dL (238-498) 11/10/17 05:15 Problem List - Problems (1) Acute kidney failure Code(s): N17.9 - ACUTE KIDNEY FAILURE, UNSPECIFIED (2) CML (chronic myelocytic leukemia) Code(s): C92.10 - CHRONIC MYELOID LEUK, BCR/ABL-POSITIVE, NOT ACHIEVE REMIS (3) Fibromyalgia Code(s): M79.7 - FIBROMYALGIA (4) Hypothyroid Code(s): E03.9 - HYPOTHYROIDISM, UNSPECIFIED (5) Seizure Code(s): R56.9 - UNSPECIFIED CONVULSIONS (6) Weakness Code(s): R53.1 - WEAKNESS (7) Chronic renal insufficiency, stage III (moderate) Code(s): N18.3 - CHRONIC KIDNEY DISEASE, STAGE 3 (MODERATE) (8) Diabetes Code(s): E11.9 - TYPE 2 DIABETES MELLITUS WITHOUT COMPLICATIONS Qualifiers: Diabetes mellitus type: type 2 (9) History of CVA (cerebrovascular accident) Code(s): Z86.73 - PRSNL HX OF TIA (TIA), AND CEREB INFRC W/O RESID DEFICITS Assessment/Plan 72 year old woman with PMhx of MS, Newly diagnosed CML with thrombocytosis/ leukocytosis with AMS and ADELA. Renal functions are stable. Less likely to be Tumor lysis syndrome. Minimal Hyperkalemia, but better. No specific therapy at this point. Will monitor the renal functions with you. Mayte Price MD
--- NOTE | 2017-11-20 17:35 | PN ---
Progress Note, Physician History of Present Illness: NAD alert and oriented in bed Seen by Physical therapy Pt refuses to go to SNF, lives at home alone, Has YOUTH NUTRITIONAL MONITOR DNR/DNI Drop in H/H - Current Medication List Current Medications: Active Medications Acetaminophen (Tylenol -) 650 mg PO Q4H PRN PRN Reason: FEVER Last Admin: 11/20/17 11:19 Dose: 650 mg Allopurinol (Zyloprim -) 300 mg PO DAILY [facility] Last Admin: 11/20/17 11:01 Dose: 300 mg Amlodipine Besylate (Norvasc -) 2.5 mg PO DAILY [facility] Last Admin: 11/20/17 11:01 Dose: 2.5 mg Calamine (Calamine 8% Topical Lotion -) 1 applic TP BID PRN PRN Reason: FOR ITCHING Last Admin: 11/15/17 21:39 Dose: 1 applic Clonazepam (Klonopin -) 1 mg PO TID [facility] Last Admin: 11/20/17 15:04 Dose: 1 mg Diphenhydramine HCl (Benadryl -) 25 mg PO Q6H PRN PRN Reason: FOR ITCHING Last Admin: 11/19/17 22:25 Dose: 25 mg Docusate Sodium (Colace -) 300 mg PO HS [facility] Last Admin: 11/19/17 22:22 Dose: 300 mg Ferrous Sulfate (Feosol -) 325 mg PO DAILY [facility] Last Admin: 11/20/17 11:00 Dose: 325 mg Gabapentin (Neurontin -) 400 mg PO TID [facility] Last Admin: 11/20/17 15:03 Dose: 400 mg Heparin Sodium (Porcine) (Heparin -) 5,000 unit SQ TID [facility] Last Admin: 11/20/17 15:03 Dose: 5,000 unit Sodium Chloride (1/2 Normal Saline) 1,000 mls @ 75 mls/hr IV ASDIR [facility] Last Admin: 11/19/17 15:18 Dose: Not Given Imatinib Mesylate (Gleevec (Restricted To Oncology) -) 400 mg PO DAILY [facility] Last Admin: 11/20/17 14:56 Dose: 400 mg Levetiracetam (Keppra -) 1,000 mg PO BID [facility] Last Admin: 11/20/17 11:00 Dose: 1,000 mg Levothyroxine Sodium (Synthroid -) 25 mcg PO DAILY@0700 [facility] Last Admin: 11/20/17 06:02 Dose: 25 mcg Losartan Potassium (Cozaar -) 50 mg PO DAILY [facility] Last Admin: 11/20/17 11:06 Dose: 50 mg Non-Formulary Medication (Patient's Own Med) 1 each NR Mo [facility] Nystatin (Nystop Powder -) 1 applic TP DAILY [facility] Last Admin: 11/20/17 11:02 Dose: Not Given Oxycodone HCl (Roxicodone -) 7.5 mg PO Q8H PRN PRN Reason: PAIN LEVEL 7 - 10 Last Admin: 11/20/17 15:23 Dose: 7.5 mg Pantoprazole Sodium (Protonix -) 40 mg PO DAILY [facility] Last Admin: 11/20/17 11:00 Dose: 40 mg Polyethylene Glycol (Miralax (For Daily Use) -) 17 gm PO DAILY [facility] Last Admin: 11/20/17 11:08 Dose: 17 gm Pramipexole Dihydrochloride (Mirapex -) 0.5 mg PO TID [facility] Last Admin: 11/20/17 15:03 Dose: 0.5 mg Senna (Senna -) 1 tab PO DAILY PRN PRN Reason: CONSTIPATION Last Admin: 11/18/17 09:03 Dose: 1 tab Triamcinolone Acetonide (Aristocort 0.025% Ointment -) 1 applic TP DAILY [facility] Last Admin: 11/20/17 11:06 Dose: Not Given - Objective Vital Signs: Vital Signs Temperature 98.3 F 11/20/17 06:38 Pulse Rate 71 11/20/17 06:38 Respiratory Rate 18 11/20/17 06:38 Blood Pressure 145/67 11/20/17 06:38 O2 Sat by Pulse Oximetry (%) 100 11/19/17 21:00 Constitutional: Yes: Well Nourished, No Distress, Calm Cardiovascular: Yes: Regular Rate and Rhythm Respiratory: Yes: Regular Gastrointestinal: Yes: Normal Bowel Sounds, Soft Musculoskeletal: Yes: Muscle Weakness Neurological: Yes: Alert, Oriented Psychiatric: Yes: Alert, Oriented Labs: CBC, BMP 11/20/17 12:30 11/20/17 06:15 INR, PTT INR 1.16 (0.82-1.09) H 11/13/17 06:45 Fibrinogen 422.0 mg/dL (238-498) 11/10/17 05:15 Problem List - Problems (1) CML (chronic myelocytic leukemia) Assessment/Plan: -Oncology on board -on Gleevec Code(s): C92.10 - CHRONIC MYELOID LEUK, BCR/ABL-POSITIVE, NOT ACHIEVE REMIS (2) Chronic renal insufficiency, stage III (moderate) Assessment/Plan: -renal on board -Cr at baseline Code(s): N18.3 - CHRONIC KIDNEY DISEASE, STAGE 3 (MODERATE) (3) Anemia Assessment/Plan: -2/2 to CKD, chemo -Iron profile normal -Also check stool ob, b 12 and thyroid profile -Transfusion ordered by hematology today -d/c after transfusion Code(s): D64.9 - ANEMIA, UNSPECIFIED (4) Constipation Assessment/Plan: -on colace and senna -Add miralax Code(s): K59.00 - CONSTIPATION, UNSPECIFIED (5) Seizure Assessment/Plan: -Neurology on board -Pseudoseizures -Keppra po 1000 mg BID Code(s): R56.9 - UNSPECIFIED CONVULSIONS (6) Weakness Assessment/Plan: Seen by Physical therapy -refuses to go to SNF -Has YOUTH NUTRITIONAL MONITOR at home -will go home when ready with VNS Code(s): R53.1 - WEAKNESS Assessment/Plan see problem list DVT prophylaxis
--- NOTE | 2017-11-20 17:56 | PN ---
Progress Note (short form) - Note Progress Note: NEUROLOGY FOLLOW-UP: Events reviewed and discussed with discharge planning. WBC down to 4-5 K range. Platelets down to 573 K No further "seizures" noted on clonazepam 1 mg q 8 hrs, levetiracetam 500m g q 12 hrs. Pain is much improved on Pramipexole (.5 TID); Gabapentin (400 mg TID); Oxycodone (7.5 mg TID). Exam unchanged. Less anxious. Reduced adventitious mov'ts. Normal arm strength. Moderate paraparesis (L>R). IMP: Multiple sclerosis with paraparesis Migraine headaches (quiescent) RLS under better control on current regimen. Anxiety under better control on current regimen. Suggest: Continue all current meds at discharge. Patient has home health aide and now, a hospital bed. Neuro follow-up as outpatient. Thank you very much, Donald West MD
[2017-11-20] MEDS: DOCUSATE SODIUM 100 MG CAPSULE (FP) PO SCH (21:27)
[2017-11-20] MEDS: SODIUM CHLORIDE 0.45% 1,000 ML IV SCH (22:39)
[2017-11-21] MEDS: oxyCODONE HCL 5 MG TABLET PO PRN ×3 (04:06→21:14)
[2017-11-21] MEDS: clonazePAM 0.5 MG TABLET PO SCH ×3 (06:01→21:13)
[2017-11-21] MEDS: LEVOTHYROXINE NA 25 MCG TABLET (FP) PO SCH (06:01)
[2017-11-21] MEDS: HEPARIN NA (PORCINE) 5,000 UNITS/ML 1ML VIAL SQ SCH ×3 (06:01→21:12)
[2017-11-21] MEDS: GABAPENTIN 400 MG CAPSULE (FP) PO SCH ×3 (06:01→21:13)
[2017-11-21] MEDS: PRAMIPEXOLE DIHYDROCHLORIDE 0.5 MG TABLET PO SCH ×3 (06:01→21:13)
[2017-11-21 08:07] LABS: BASO % 4.5 % (0-2.0); EOS % 5.2 % (0-4.5); HEMATOCRIT 25.4 % (32.4-45.2); HEMOGLOBIN 8.5 GM/dL (10.7-15.3); LYMPH % 23.7 % (8-40); MCHC 33.3 g/dl (32.0-36.0); MEAN CELL VOLUME 84.1 fl (80-96); MEAN PLT VOLUME 8.1 fl (7.5-11.1); MONO % 10.1 % (3.8-10.2); NEUT % 56.5 % (42.8-82.8); PLATELET COUNT 534 K/MM3 (134-434); RBC 3.02 M/mm3 (3.60-5.2); RDW 15.7 % (11.6-15.6); WHITE BLOOD COUNT 4.1 K/mm3 (4.0-10.0)
[2017-11-21] MEDS ORDERED: PT OWN MED DRAWER 7, Y5N ONE ×3 (11:03→20:58)
[2017-11-21] MEDS: PANTOPRAZOLE 40 MG TABLET (FP) PO SCH (11:27)
[2017-11-21] MEDS: levETIRAcetam 500 MG TABLET (FP) PO SCH ×2 (11:27→21:12)
[2017-11-21] MEDS: ALLOPURINOL 300 MG TABLET (FP) PO SCH (11:27)
[2017-11-21] MEDS: FERROUS SO4 325 MG TABLET (FP) PO SCH (11:27)
[2017-11-21] MEDS: amLODIPine BESYLATE 2.5 MG TABLET (FP) PO SCH (11:28)
[2017-11-21] MEDS: LOSARTAN POTASSIUM 50 MG TABLET (FP) PO SCH (11:29)
[2017-11-21] MEDS: NYSTATIN POWDER 100,000 UNITS/GM - 15 GM TOPICAL POWDER TP SCH (11:29)
[2017-11-21] MEDS: TRIAMCINOLONE ACET 0.025% OINTMENT 15 GM TUBE TP SCH (11:29)
[2017-11-21] MEDS: POLYETHYLENE GLYCOL 3350 119 GM BTL PO SCH (11:30)
--- NOTE | 2017-11-21 12:48 | PN ---
Progress Note, Physician Chief Complaint: Patient seen in her room. seems confused and paranoid. ? hallucinations No new complaints. No chest pain, no shortness of breath. Maintains good urine output. History of Present Illness: 72 year old woman with PMhx of MS, Newly diagnosed CML with Thrombocytosis/ Leukocytosis with AMS and Cr of 1.3. H/o MS. Recent seizure. Renal functions have improved since. Has some visual and paranoid hallucinations. ? psych eval. - Current Medication List Current Medications: Active Medications Acetaminophen (Tylenol -) 650 mg PO Q4H PRN PRN Reason: FEVER Last Admin: 11/20/17 11:19 Dose: 650 mg Allopurinol (Zyloprim -) 300 mg PO DAILY [facility] Last Admin: 11/21/17 11:27 Dose: 300 mg Amlodipine Besylate (Norvasc -) 2.5 mg PO DAILY [facility] Last Admin: 11/21/17 11:28 Dose: 2.5 mg Calamine (Calamine 8% Topical Lotion -) 1 applic TP BID PRN PRN Reason: FOR ITCHING Last Admin: 11/15/17 21:39 Dose: 1 applic Clonazepam (Klonopin -) 1 mg PO TID [facility] Last Admin: 11/21/17 06:01 Dose: 1 mg Diphenhydramine HCl (Benadryl -) 25 mg PO Q6H PRN PRN Reason: FOR ITCHING Last Admin: 11/19/17 22:25 Dose: 25 mg Docusate Sodium (Colace -) 300 mg PO HS [facility] Last Admin: 11/20/17 21:27 Dose: 300 mg Ferrous Sulfate (Feosol -) 325 mg PO DAILY [facility] Last Admin: 11/21/17 11:27 Dose: 325 mg Gabapentin (Neurontin -) 400 mg PO TID [facility] Last Admin: 11/21/17 06:01 Dose: 400 mg Heparin Sodium (Porcine) (Heparin -) 5,000 unit SQ TID [facility] Last Admin: 11/21/17 06:01 Dose: 5,000 unit Imatinib Mesylate (Gleevec (Restricted To Oncology) -) 400 mg PO DAILY [facility] Last Admin: 11/20/17 14:56 Dose: 400 mg Levetiracetam (Keppra -) 1,000 mg PO BID [facility] Last Admin: 11/21/17 11:27 Dose: 1,000 mg Levothyroxine Sodium (Synthroid -) 25 mcg PO DAILY@0700 [facility] Last Admin: 11/21/17 06:01 Dose: 25 mcg Losartan Potassium (Cozaar -) 50 mg PO DAILY [facility] Last Admin: 11/21/17 11:29 Dose: 50 mg Non-Formulary Medication (Patient's Own Med) 1 each NR Mo [facility] Nystatin (Nystop Powder -) 1 applic TP DAILY [facility] Last Admin: 11/21/17 11:29 Dose: Not Given Oxycodone HCl (Roxicodone -) 7.5 mg PO Q8H PRN PRN Reason: PAIN LEVEL 7 - 10 Last Admin: 11/21/17 04:06 Dose: 7.5 mg Pantoprazole Sodium (Protonix -) 40 mg PO DAILY [facility] Last Admin: 11/21/17 11:27 Dose: 40 mg Polyethylene Glycol (Miralax (For Daily Use) -) 17 gm PO DAILY [facility] Last Admin: 11/21/17 11:30 Dose: 17 gm Pramipexole Dihydrochloride (Mirapex -) 0.5 mg PO TID [facility] Last Admin: 11/21/17 06:01 Dose: 0.5 mg Senna (Senna -) 1 tab PO DAILY PRN PRN Reason: CONSTIPATION Last Admin: 11/18/17 09:03 Dose: 1 tab Triamcinolone Acetonide (Aristocort 0.025% Ointment -) 1 applic TP DAILY [facility] Last Admin: 11/21/17 11:29 Dose: Not Given - Objective Vital Signs: Vital Signs Temperature 98 F 11/21/17 06:00 Pulse Rate 61 11/21/17 06:00 Respiratory Rate 20 11/21/17 06:00 Blood Pressure 127/57 11/21/17 06:00 O2 Sat by Pulse Oximetry (%) 100 11/20/17 21:00 Constitutional: Yes: Anxious, Mild Distress, Pallor Eyes: Yes: Conjunctiva Clear HENT: Yes: Atraumatic Neck: Yes: Trachea Midline Cardiovascular: Yes: Regular Rate and Rhythm, S1, S2 Respiratory: Yes: CTA Bilaterally, Diminished Gastrointestinal: Yes: Normal Bowel Sounds, Soft Genitourinary: No: Bladder Distention, CVA Tenderness - Left, CVA Tenderness - Right Labs: CBC, BMP 11/21/17 06:15 11/20/17 06:15 INR, PTT INR 1.16 (0.82-1.09) H 11/13/17 06:45 Fibrinogen 422.0 mg/dL (238-498) 11/10/17 05:15 Problem List - Problems (1) Acute kidney failure Code(s): N17.9 - ACUTE KIDNEY FAILURE, UNSPECIFIED (2) CML (chronic myelocytic leukemia) Code(s): C92.10 - CHRONIC MYELOID LEUK, BCR/ABL-POSITIVE, NOT ACHIEVE REMIS (3) Fibromyalgia Code(s): M79.7 - FIBROMYALGIA (4) Hypothyroid Code(s): E03.9 - HYPOTHYROIDISM, UNSPECIFIED (5) Seizure Code(s): R56.9 - UNSPECIFIED CONVULSIONS (6) Weakness Code(s): R53.1 - WEAKNESS (7) Chronic renal insufficiency, stage III (moderate) Code(s): N18.3 - CHRONIC KIDNEY DISEASE, STAGE 3 (MODERATE) (8) Diabetes Code(s): E11.9 - TYPE 2 DIABETES MELLITUS WITHOUT COMPLICATIONS Qualifiers: Diabetes mellitus type: type 2 (9) History of CVA (cerebrovascular accident) Code(s): Z86.73 - PRSNL HX OF TIA (TIA), AND CEREB INFRC W/O RESID DEFICITS Assessment/Plan 72 year old woman with PMhx of MS, Newly diagnosed CML with thrombocytosis/ leukocytosis with AMS and ADELA. Renal functions are stable. Less likely to be Tumor lysis syndrome. No lab data from today. No specific therapy at this point. Will monitor the renal functions with you. Mayte Price MD
[2017-11-21] MEDS: IMATINIB MESYLATE 100 MG TABLET PO SCH (13:12)
--- NOTE | 2017-11-21 15:38 | PN ---
Progress Note (short form) - Note Progress Note: Patient is stable from Neurosurgical standpoint with persisting Cervical spondylosis. Pain under better control. 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
[2017-11-21 17:19] VITALS: BMI 35.8
[2017-11-21] MEDS: DOCUSATE SODIUM 100 MG CAPSULE (FP) PO SCH ×2 (21:11→21:31)
--- NOTE | 2017-11-21 22:10 | PN ---
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 Pt wants to be DNR/DNI - Current Medication List Current Medications: Active Medications Acetaminophen (Tylenol -) 650 mg PO Q4H PRN PRN Reason: FEVER Last Admin: 11/20/17 11:19 Dose: 650 mg Allopurinol (Zyloprim -) 300 mg PO DAILY [facility] Last Admin: 11/21/17 11:27 Dose: 300 mg Amlodipine Besylate (Norvasc -) 2.5 mg PO DAILY [facility] Last Admin: 11/21/17 11:28 Dose: 2.5 mg Calamine (Calamine 8% Topical Lotion -) 1 applic TP BID PRN PRN Reason: FOR ITCHING Last Admin: 11/15/17 21:39 Dose: 1 applic Clonazepam (Klonopin -) 1 mg PO TID [facility] Last Admin: 11/21/17 21:13 Dose: 1 mg Diphenhydramine HCl (Benadryl -) 25 mg PO Q6H PRN PRN Reason: FOR ITCHING Last Admin: 11/19/17 22:25 Dose: 25 mg Docusate Sodium (Colace -) 300 mg PO HS [facility] Last Admin: 11/21/17 21:31 Dose: Not Given Ferrous Sulfate (Feosol -) 325 mg PO DAILY [facility] Last Admin: 11/21/17 11:27 Dose: 325 mg Gabapentin (Neurontin -) 400 mg PO TID [facility] Last Admin: 11/21/17 21:13 Dose: 400 mg Heparin Sodium (Porcine) (Heparin -) 5,000 unit SQ TID [facility] Last Admin: 11/21/17 21:12 Dose: 5,000 unit Imatinib Mesylate (Gleevec (Restricted To Oncology) -) 400 mg PO DAILY [facility] Last Admin: 11/21/17 13:12 Dose: 400 mg Levetiracetam (Keppra -) 1,000 mg PO BID [facility] Last Admin: 11/21/17 21:12 Dose: 1,000 mg Levothyroxine Sodium (Synthroid -) 25 mcg PO DAILY@0700 [facility] Last Admin: 11/21/17 06:01 Dose: 25 mcg Losartan Potassium (Cozaar -) 50 mg PO DAILY [facility] Last Admin: 11/21/17 11:29 Dose: 50 mg Non-Formulary Medication (Patient's Own Med) 1 each NR Mo [facility] Nystatin (Nystop Powder -) 1 applic TP DAILY [facility] Last Admin: 11/21/17 11:29 Dose: Not Given Oxycodone HCl (Roxicodone -) 7.5 mg PO Q8H PRN PRN Reason: PAIN LEVEL 7 - 10 Last Admin: 11/21/17 21:14 Dose: 7.5 mg Pantoprazole Sodium (Protonix -) 40 mg PO DAILY [facility] Last Admin: 11/21/17 11:27 Dose: 40 mg Polyethylene Glycol (Miralax (For Daily Use) -) 17 gm PO DAILY [facility] Last Admin: 11/21/17 11:30 Dose: 17 gm Pramipexole Dihydrochloride (Mirapex -) 0.5 mg PO TID [facility] Last Admin: 11/21/17 21:13 Dose: 0.5 mg Senna (Senna -) 1 tab PO DAILY PRN PRN Reason: CONSTIPATION Last Admin: 11/18/17 09:03 Dose: 1 tab Triamcinolone Acetonide (Aristocort 0.025% Ointment -) 1 applic TP DAILY [facility] Last Admin: 11/21/17 11:29 Dose: Not Given - Objective Vital Signs: Vital Signs Temperature 98.4 F 11/21/17 21:55 Pulse Rate 69 11/21/17 21:55 Respiratory Rate 20 11/21/17 21:55 Blood Pressure 142/63 11/21/17 21:55 O2 Sat by Pulse Oximetry (%) 100 11/20/17 21:00 Constitutional: Yes: Well Nourished, Calm, Anxious Cardiovascular: Yes: Regular Rate and Rhythm Respiratory: Yes: Regular Gastrointestinal: Yes: Normal Bowel Sounds, Soft, Abdomen, Obese Edema: Yes Edema: LLE: Trace, RLE: Trace Peripheral Pulses WNL: Yes Neurological: Yes: Alert, Oriented Psychiatric: Yes: Alert, Oriented Labs: CBC, BMP 11/21/17 06:15 11/20/17 06:15 INR, PTT INR 1.16 (0.82-1.09) H 11/13/17 06:45 Fibrinogen 422.0 mg/dL (238-498) 11/10/17 05:15 Problem List - Problems (1) CML (chronic myelocytic leukemia) Assessment/Plan: -Oncology on board -on Gleevec Code(s): C92.10 - CHRONIC MYELOID LEUK, BCR/ABL-POSITIVE, NOT ACHIEVE REMIS (2) Constipation Assessment/Plan: -on colace and senna -Add miralax Code(s): K59.00 - CONSTIPATION, UNSPECIFIED (3) Seizure Assessment/Plan: -Neurology on board -Pseudoseizures -Keppra po 1000 mg BID Code(s): R56.9 - UNSPECIFIED CONVULSIONS (4) Anemia Assessment/Plan: -2/2 to CKD, chemo -Iron profile normal -Also check stool ob, b 12 and thyroid profile -transfuse as needed Code(s): D64.9 - ANEMIA, UNSPECIFIED Assessment/Plan see problem list DVT prophylaxis
--- NOTE | 2017-11-22 00:49 | PN ---
Progress Note (short form) - Note Progress Note: pt seen and examined. Constitutional: Yes: in no Distress HENT: Yes: Atraumatic, Normocephalic Neck: Yes: Supple Cardiovascular: Yes: Regular Rate and Rhythm Respiratory: Yes: Regular Gastrointestinal: Yes: Soft, Abdomen, Obese, Tenderness Edema: Yes Neurological: Yes: AAOX3 Last Vital Signs Temp Pulse Resp BP Pulse Ox 98.3 F 71 18 145/67 100 11/20/17 06:38 11/20/17 06:38 11/20/17 06:38 11/20/17 06:38 11/19/17 21:00 CBC, BMP 11/19/17 09:50 11/20/17 06:15 Current Medications Generic Name Dose Route Start Last Admin Trade Name Freq PRN Reason Stop Dose Admin Acetaminophen 650 mg 11/15/17 18:36 11/20/17 11:19 Tylenol - PO 650 mg Q4H PRN Administration FEVER Allopurinol 300 mg 11/16/17 10:00 11/20/17 11:01 Zyloprim - PO 300 mg DAILY [facility] Administration Amlodipine Besylate 2.5 mg 11/16/17 10:00 11/20/17 11:01 Norvasc - PO 2.5 mg DAILY [facility] Administration Calamine 1 applic 11/15/17 18:36 11/15/17 21:39 Calamine 8% Topical Lotion - TP 1 applic BID PRN Administration FOR ITCHING Clonazepam 1 mg 11/16/17 22:45 11/20/17 05:59 Klonopin - PO 1 mg TID [facility] Administration Diphenhydramine HCl 25 mg 11/18/17 07:16 11/19/17 22:25 Benadryl - PO 25 mg Q6H PRN Administration FOR ITCHING Docusate Sodium 300 mg 11/15/17 22:00 11/19/17 22:22 Colace - PO 300 mg HS [facility] Administration Ferrous Sulfate 325 mg 11/16/17 10:00 11/20/17 11:00 Feosol - PO 325 mg DAILY [facility] Administration Gabapentin 400 mg 11/15/17 22:00 11/20/17 05:59 Neurontin - PO 400 mg TID [facility] Administration Heparin Sodium (Porcine) 5,000 unit 11/15/17 22:00 11/20/17 06:01 Heparin - SQ 5,000 unit TID [facility] Administration Sodium Chloride 1,000 mls @ 75 mls/hr 11/16/17 14:45 11/19/17 15:18 1/2 Normal Saline IV Not Given ASDIR [facility] Imatinib Mesylate 400 mg 11/16/17 10:00 11/19/17 10:08 Gleevec (Restricted To Oncology) - PO 400 mg DAILY [facility] Administration Levetiracetam 1,000 mg 11/17/17 22:00 11/20/17 11:00 Keppra - PO 1,000 mg BID [facility] Administration Levothyroxine Sodium 25 mcg 11/19/17 07:00 11/20/17 06:02 Synthroid - PO 25 mcg DAILY@0700 [facility] Administration Losartan Potassium 50 mg 11/16/17 10:00 11/20/17 11:06 Cozaar - PO 50 mg DAILY [facility] Administration Non-Formulary Medication 1 each 11/19/17 15:15 Patient's Own Med NR Mo [facility] Nystatin 1 applic 11/16/17 10:00 11/20/17 11:02 Nystop Powder - TP Not Given DAILY [facility] Pantoprazole Sodium 40 mg 11/16/17 10:00 11/20/17 11:00 Protonix - PO 40 mg DAILY [facility] Administration Polyethylene Glycol 17 gm 11/17/17 12:00 11/20/17 11:08 Miralax (For Daily Use) - PO 17 gm DAILY [facility] Administration Pramipexole Dihydrochloride 0.5 mg 11/15/17 22:00 11/20/17 06:00 Mirapex - PO 0.5 mg TID [facility] Administration Senna 1 tab 11/15/17 18:36 11/18/17 09:03 Senna - PO 1 tab DAILY PRN Administration CONSTIPATION Triamcinolone Acetonide 1 applic 11/16/17 10:00 11/20/17 11:06 Aristocort 0.025% Ointment - TP Not Given DAILY [facility] Chronic Myeloid Leukemia--- BCR ABL positive (Translocation t9;22) -overall heme parameters improving. - c/w gleevac present doses -PRBCs -for Office f.u -refused SNF. Problem List - Problems (1) Leukocytosis Code(s): D72.829 - ELEVATED WHITE BLOOD CELL COUNT, UNSPECIFIED Qualifiers: Qualified Code(s): D72.829 - Elevated white blood cell count, unspecified (2) Thrombocytosis Code(s): D47.3 - ESSENTIAL (HEMORRHAGIC) THROMBOCYTHEMIA (3) Chronic pain of multiple joints Code(s): M25.50 - PAIN IN UNSPECIFIED JOINT; G89.29 - OTHER CHRONIC PAIN
--- NOTE | 2017-11-22 00:50 | PN ---
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 - Current Medication List Current Medications: Active Medications Acetaminophen (Tylenol -) 650 mg PO Q4H PRN PRN Reason: FEVER Last Admin: 11/20/17 11:19 Dose: 650 mg Allopurinol (Zyloprim -) 300 mg PO DAILY [facility] Last Admin: 11/21/17 11:27 Dose: 300 mg Amlodipine Besylate (Norvasc -) 2.5 mg PO DAILY [facility] Last Admin: 11/21/17 11:28 Dose: 2.5 mg Calamine (Calamine 8% Topical Lotion -) 1 applic TP BID PRN PRN Reason: FOR ITCHING Last Admin: 11/15/17 21:39 Dose: 1 applic Clonazepam (Klonopin -) 1 mg PO TID [facility] Last Admin: 11/21/17 21:13 Dose: 1 mg Diphenhydramine HCl (Benadryl -) 25 mg PO Q6H PRN PRN Reason: FOR ITCHING Last Admin: 11/19/17 22:25 Dose: 25 mg Docusate Sodium (Colace -) 300 mg PO HS [facility] Last Admin: 11/21/17 21:31 Dose: Not Given Ferrous Sulfate (Feosol -) 325 mg PO DAILY [facility] Last Admin: 11/21/17 11:27 Dose: 325 mg Gabapentin (Neurontin -) 400 mg PO TID [facility] Last Admin: 11/21/17 21:13 Dose: 400 mg Heparin Sodium (Porcine) (Heparin -) 5,000 unit SQ TID [facility] Last Admin: 11/21/17 21:12 Dose: 5,000 unit Imatinib Mesylate (Gleevec (Restricted To Oncology) -) 400 mg PO DAILY [facility] Last Admin: 11/21/17 13:12 Dose: 400 mg Levetiracetam (Keppra -) 1,000 mg PO BID [facility] Last Admin: 11/21/17 21:12 Dose: 1,000 mg Levothyroxine Sodium (Synthroid -) 25 mcg PO DAILY@0700 [facility] Last Admin: 11/21/17 06:01 Dose: 25 mcg Losartan Potassium (Cozaar -) 50 mg PO DAILY [facility] Last Admin: 11/21/17 11:29 Dose: 50 mg Non-Formulary Medication (Patient's Own Med) 1 each NR Mo [facility] Nystatin (Nystop Powder -) 1 applic TP DAILY [facility] Last Admin: 11/21/17 11:29 Dose: Not Given Oxycodone HCl (Roxicodone -) 7.5 mg PO Q8H PRN PRN Reason: PAIN LEVEL 7 - 10 Last Admin: 11/21/17 21:14 Dose: 7.5 mg Pantoprazole Sodium (Protonix -) 40 mg PO DAILY [facility] Last Admin: 11/21/17 11:27 Dose: 40 mg Polyethylene Glycol (Miralax (For Daily Use) -) 17 gm PO DAILY [facility] Last Admin: 11/21/17 11:30 Dose: 17 gm Pramipexole Dihydrochloride (Mirapex -) 0.5 mg PO TID [facility] Last Admin: 11/21/17 21:13 Dose: 0.5 mg Senna (Senna -) 1 tab PO DAILY PRN PRN Reason: CONSTIPATION Last Admin: 11/18/17 09:03 Dose: 1 tab Triamcinolone Acetonide (Aristocort 0.025% Ointment -) 1 applic TP DAILY [facility] Last Admin: 11/21/17 11:29 Dose: Not Given - Objective Vital Signs: Vital Signs Temperature 98.4 F 11/21/17 21:55 Pulse Rate 69 11/21/17 21:55 Respiratory Rate 20 11/21/17 21:55 Blood Pressure 142/63 11/21/17 21:55 O2 Sat by Pulse Oximetry (%) 100 11/21/17 21:00 Constitutional: Yes: Well Nourished, Anxious Eyes: Yes: EOM Intact HENT: Yes: Normocephalic Neck: Yes: Trachea Midline Cardiovascular: Yes: Regular Rate and Rhythm Respiratory: Yes: CTA Bilaterally Gastrointestinal: Yes: Normal Bowel Sounds ...Rectal Exam: Yes: Deferred Genitourinary: Yes: WNL Musculoskeletal: Yes: Joint Stiffness, Joint Swelling, Muscle Pain, Muscle Weakness Extremities: Yes: WNL Neurological: Yes: Alert, Oriented Labs: CBC, BMP 11/21/17 06:15 11/20/17 06:15 INR, PTT INR 1.16 (0.82-1.09) H 11/13/17 06:45 Fibrinogen 422.0 mg/dL (238-498) 11/10/17 05:15 Problem List - Problems (1) Hypothyroid Code(s): E03.9 - HYPOTHYROIDISM, UNSPECIFIED (2) Spinal stenosis Code(s): M48.00 - SPINAL STENOSIS, SITE UNSPECIFIED (3) Weakness Code(s): R53.1 - WEAKNESS (4) Chronic pain of multiple joints Code(s): M25.50 - PAIN IN UNSPECIFIED JOINT; G89.29 - OTHER CHRONIC PAIN (5) Chronic use of opiate for therapeutic purpose Code(s): Z79.899 - OTHER LONGTERM (CURRENT) DRUG THERAPY Assessment/Plan Current Active Problems Abnormal antibody titer (Acute) Acute kidney failure (Acute) CML (chronic myelocytic leukemia) (Acute) Constipation (Acute) Fibromyalgia (Acute) Hypothyroid (Acute) Left upper quadrant pain (Acute) Seizure (Acute) Spinal stenosis (Acute) Thrombocytosis (Acute) Thrombocytosis (Acute) UTI (urinary tract infection) (Acute) Weakness (Acute) Chronic pain of multiple joints (Chronic) Chronic renal insufficiency, stage III (moderate) (Chronic) Chronic use of opiate for therapeutic purpose (Chronic) Degenerative disc disease (Chronic) Diabetes mellitus with renal manifestations, controlled (Chronic) Leukocytosis (Chronic) Abnormal Lab Results 11/21/17 06:15 RBC 3.02 L Hgb 8.5 L D Hct 25.4 L RDW 15.7 H Plt Count 534 H Eosinophils % 5.2 H Basophils % 4.5 H Laboratory Results - last 24 hr 11/21/17 06:15 WBC 4.1 RBC 3.02 L Hgb 8.5 L D Hct 25.4 L MCV 84.1 MCH 28.0 MCHC 33.3 RDW 15.7 H Plt Count 534 H MPV 8.1 Absolute Neuts (auto) 2.3 Neutrophils % 56.5 Lymphocytes % 23.7 Monocytes % 10.1 Eosinophils % 5.2 H Basophils % 4.5 H Nucleated RBC % 0 plan: dc planning for home care synthroid 25mcg daily continue current meds as outpatient
[2017-11-22] MEDS ORDERED: PT OWN MED DRAWER 7, Y5N ONE (05:16)
[2017-11-22] MEDS: GABAPENTIN 400 MG CAPSULE (FP) PO SCH ×2 (06:00→14:46)
[2017-11-22] MEDS: clonazePAM 0.5 MG TABLET PO SCH ×2 (06:00→14:45)
[2017-11-22] MEDS: HEPARIN NA (PORCINE) 5,000 UNITS/ML 1ML VIAL SQ SCH ×2 (06:00→14:45)
[2017-11-22] MEDS: PRAMIPEXOLE DIHYDROCHLORIDE 0.5 MG TABLET PO SCH ×2 (06:00→14:46)
[2017-11-22] MEDS: LEVOTHYROXINE NA 25 MCG TABLET (FP) PO SCH (07:00)
--- NOTE | 2017-11-22 10:10 | PN ---
Progress Note (short form) - Note Progress Note: Resting in NAD. Denies CP or SOB. No CP or SOB. Intake & Output 11/19/17 11/20/17 11/21/17 11/22/17 23:59 23:59 23:59 23:59 Intake Total 1214 1300 1530 Balance 1214 1300 1530 Last Vital Signs Temp Pulse Resp BP Pulse Ox 98.4 F 79 22 158/74 100 11/22/17 09:09 11/22/17 09:09 11/22/17 09:09 11/22/17 09:09 11/21/17 21:00 Active Medications Acetaminophen (Tylenol -) 650 mg PO Q4H PRN PRN Reason: FEVER Last Admin: 11/20/17 11:19 Dose: 650 mg Allopurinol (Zyloprim -) 300 mg PO DAILY [facility] Last Admin: 11/21/17 11:27 Dose: 300 mg Amlodipine Besylate (Norvasc -) 2.5 mg PO DAILY [facility] Last Admin: 11/21/17 11:28 Dose: 2.5 mg Calamine (Calamine 8% Topical Lotion -) 1 applic TP BID PRN PRN Reason: FOR ITCHING Last Admin: 11/15/17 21:39 Dose: 1 applic Clonazepam (Klonopin -) 1 mg PO TID [facility] Last Admin: 11/21/17 21:13 Dose: 1 mg Diphenhydramine HCl (Benadryl -) 25 mg PO Q6H PRN PRN Reason: FOR ITCHING Last Admin: 11/19/17 22:25 Dose: 25 mg Docusate Sodium (Colace -) 300 mg PO HS [facility] Last Admin: 11/21/17 21:31 Dose: Not Given Ferrous Sulfate (Feosol -) 325 mg PO DAILY [facility] Last Admin: 11/21/17 11:27 Dose: 325 mg Gabapentin (Neurontin -) 400 mg PO TID [facility] Last Admin: 11/21/17 21:13 Dose: 400 mg Heparin Sodium (Porcine) (Heparin -) 5,000 unit SQ TID [facility] Last Admin: 11/21/17 21:12 Dose: 5,000 unit Imatinib Mesylate (Gleevec (Restricted To Oncology) -) 400 mg PO DAILY [facility] Last Admin: 11/21/17 13:12 Dose: 400 mg Levetiracetam (Keppra -) 1,000 mg PO BID [facility] Last Admin: 11/21/17 21:12 Dose: 1,000 mg Levothyroxine Sodium (Synthroid -) 25 mcg PO DAILY@0700 [facility] Last Admin: 11/21/17 06:01 Dose: 25 mcg Losartan Potassium (Cozaar -) 50 mg PO DAILY [facility] Last Admin: 11/21/17 11:29 Dose: 50 mg Non-Formulary Medication (Patient's Own Med) 1 each NR Mo [facility] Nystatin (Nystop Powder -) 1 applic TP DAILY [facility] Last Admin: 11/21/17 11:29 Dose: Not Given Oxycodone HCl (Roxicodone -) 7.5 mg PO Q8H PRN PRN Reason: PAIN LEVEL 7 - 10 Last Admin: 11/21/17 21:14 Dose: 7.5 mg Pantoprazole Sodium (Protonix -) 40 mg PO DAILY [facility] Last Admin: 11/21/17 11:27 Dose: 40 mg Polyethylene Glycol (Miralax (For Daily Use) -) 17 gm PO DAILY [facility] Last Admin: 11/21/17 11:30 Dose: 17 gm Pramipexole Dihydrochloride (Mirapex -) 0.5 mg PO TID [facility] Last Admin: 11/21/17 21:13 Dose: 0.5 mg Senna (Senna -) 1 tab PO DAILY PRN PRN Reason: CONSTIPATION Last Admin: 11/18/17 09:03 Dose: 1 tab Triamcinolone Acetonide (Aristocort 0.025% Ointment -) 1 applic TP DAILY [facility] Last Admin: 11/21/17 11:29 Dose: Not Given Constitutional: Yes: Awake and alert, NAD Cardiovascular: Yes: Regular Rate and Rhythm Respiratory: Yes: scattered rhonchi Gastrointestinal: Yes: WNL, Normal Bowel Sounds Edema: No Peripheral Pulses WNL: Yes Neurological: Yes: Non-focal Skin: Minimal rash Labs: Problem List - Problems (1) Seizure Code(s): R56.9 - UNSPECIFIED CONVULSIONS (2) Spinal stenosis Code(s): M48.00 - SPINAL STENOSIS, SITE UNSPECIFIED (3) Thrombocytosis Code(s): D47.3 - ESSENTIAL (HEMORRHAGIC) THROMBOCYTHEMIA (4) Leukocytosis Code(s): D72.829 - ELEVATED WHITE BLOOD CELL COUNT, UNSPECIFIED Qualifiers: Leukocytosis type: unspecified Qualified Code(s): D72.829 - Elevated white blood cell count, unspecified (5) Hypertension Code(s): I10 - ESSENTIAL (PRIMARY) HYPERTENSION Assessment/Plan Chronic Myeloid Leukemia Leukocytosis and thrombocytosis New onset seizures Cervical spine stenosis/Degenerative disc disease MS Chronic pain Rash/itching possibly due to Gleevac Gleevac per Heme Allopurinol Keppra Gabapentin Clonazepam Mirapex ASA 81mg Oxycodone for pain management VTE and GI prophylaxis Dr Major
--- NOTE | 2017-11-22 10:48 | PN ---
Progress Note, Physician Chief Complaint: Seizures History of Present Illness: NAD alert and oriented in bed Pt refuses to go to SNF, lives at home alone, no SENIOR BENEFITS ANALYST available at this time, Sister is HCP, has a but Pt wants to be DNR/DNI MOLST form signed - Current Medication List Current Medications: Active Medications Acetaminophen (Tylenol -) 650 mg PO Q4H PRN PRN Reason: FEVER Last Admin: 11/20/17 11:19 Dose: 650 mg Allopurinol (Zyloprim -) 300 mg PO DAILY [facility] Last Admin: 11/21/17 11:27 Dose: 300 mg Amlodipine Besylate (Norvasc -) 2.5 mg PO DAILY [facility] Last Admin: 11/21/17 11:28 Dose: 2.5 mg Calamine (Calamine 8% Topical Lotion -) 1 applic TP BID PRN PRN Reason: FOR ITCHING Last Admin: 11/15/17 21:39 Dose: 1 applic Clonazepam (Klonopin -) 1 mg PO TID [facility] Last Admin: 11/21/17 21:13 Dose: 1 mg Diphenhydramine HCl (Benadryl -) 25 mg PO Q6H PRN PRN Reason: FOR ITCHING Last Admin: 11/19/17 22:25 Dose: 25 mg Docusate Sodium (Colace -) 300 mg PO HS [facility] Last Admin: 11/21/17 21:31 Dose: Not Given Ferrous Sulfate (Feosol -) 325 mg PO DAILY [facility] Last Admin: 11/21/17 11:27 Dose: 325 mg Gabapentin (Neurontin -) 400 mg PO TID [facility] Last Admin: 11/21/17 21:13 Dose: 400 mg Heparin Sodium (Porcine) (Heparin -) 5,000 unit SQ TID [facility] Last Admin: 11/21/17 21:12 Dose: 5,000 unit Imatinib Mesylate (Gleevec (Restricted To Oncology) -) 400 mg PO DAILY [facility] Last Admin: 11/21/17 13:12 Dose: 400 mg Levetiracetam (Keppra -) 1,000 mg PO BID [facility] Last Admin: 11/21/17 21:12 Dose: 1,000 mg Levothyroxine Sodium (Synthroid -) 25 mcg PO DAILY@0700 [facility] Last Admin: 11/21/17 06:01 Dose: 25 mcg Losartan Potassium (Cozaar -) 50 mg PO DAILY [facility] Last Admin: 11/21/17 11:29 Dose: 50 mg Non-Formulary Medication (Patient's Own Med) 1 each NR Mo [facility] Nystatin (Nystop Powder -) 1 applic TP DAILY [facility] Last Admin: 11/21/17 11:29 Dose: Not Given Oxycodone HCl (Roxicodone -) 7.5 mg PO Q8H PRN PRN Reason: PAIN LEVEL 7 - 10 Last Admin: 11/21/17 21:14 Dose: 7.5 mg Pantoprazole Sodium (Protonix -) 40 mg PO DAILY [facility] Last Admin: 11/21/17 11:27 Dose: 40 mg Polyethylene Glycol (Miralax (For Daily Use) -) 17 gm PO DAILY [facility] Last Admin: 11/21/17 11:30 Dose: 17 gm Pramipexole Dihydrochloride (Mirapex -) 0.5 mg PO TID [facility] Last Admin: 11/21/17 21:13 Dose: 0.5 mg Senna (Senna -) 1 tab PO DAILY PRN PRN Reason: CONSTIPATION Last Admin: 11/18/17 09:03 Dose: 1 tab Triamcinolone Acetonide (Aristocort 0.025% Ointment -) 1 applic TP DAILY [facility] Last Admin: 11/21/17 11:29 Dose: Not Given - Objective Vital Signs: Vital Signs Temperature 98.4 F 11/22/17 09:09 Pulse Rate 79 11/22/17 09:09 Respiratory Rate 22 11/22/17 09:09 Blood Pressure 158/74 11/22/17 09:09 O2 Sat by Pulse Oximetry (%) 100 11/21/17 21:00 Constitutional: Yes: Well Nourished, No Distress, Calm Cardiovascular: Yes: Regular Rate and Rhythm Respiratory: Yes: Diminished (BLLL) Gastrointestinal: Yes: Normal Bowel Sounds, Soft, Abdomen, Obese Musculoskeletal: Yes: Muscle Weakness Extremities: Yes: WNL Edema: Yes Edema: LLE: Trace, RLE: Trace Peripheral Pulses WNL: Yes Neurological: Yes: Alert, Oriented Psychiatric: Yes: Alert, Oriented Labs: CBC, BMP 11/21/17 06:15 11/20/17 06:15 INR, PTT INR 1.16 (0.82-1.09) H 11/13/17 06:45 Fibrinogen 422.0 mg/dL (238-498) 11/10/17 05:15 Problem List - Problems (1) CML (chronic myelocytic leukemia) Assessment/Plan: -Oncology on board -on Gleevec Code(s): C92.10 - CHRONIC MYELOID LEUK, BCR/ABL-POSITIVE, NOT ACHIEVE REMIS (2) Constipation Assessment/Plan: -on colace and senna -Miralax Code(s): K59.00 - CONSTIPATION, UNSPECIFIED (3) Seizure Assessment/Plan: -Neurology on board -Pseudoseizures -Keppra po 1000 mg BID Code(s): R56.9 - UNSPECIFIED CONVULSIONS (4) Anemia Assessment/Plan: -2/2 to CKD, chemo -Iron profile normal -stool ob, b 12 and thyroid profile normal -transfuse as needed Code(s): D64.9 - ANEMIA, UNSPECIFIED Assessment/Plan see problem list DVT prophylaxis
[2017-11-22] MEDS: LOSARTAN POTASSIUM 50 MG TABLET (FP) PO SCH (11:05)
[2017-11-22] MEDS: ALLOPURINOL 300 MG TABLET (FP) PO SCH (11:05)
[2017-11-22] MEDS: FERROUS SO4 325 MG TABLET (FP) PO SCH (11:05)
[2017-11-22] MEDS: PANTOPRAZOLE 40 MG TABLET (FP) PO SCH (11:05)
[2017-11-22] MEDS: amLODIPine BESYLATE 2.5 MG TABLET (FP) PO SCH (11:05)
[2017-11-22] MEDS: IMATINIB MESYLATE 100 MG TABLET PO SCH (11:06)
[2017-11-22] MEDS: levETIRAcetam 500 MG TABLET (FP) PO SCH (11:06)
[2017-11-22] MEDS: POLYETHYLENE GLYCOL 3350 119 GM BTL PO SCH (11:07)
[2017-11-22] MEDS: TRIAMCINOLONE ACET 0.025% OINTMENT 15 GM TUBE TP SCH (11:11)
[2017-11-22] MEDS: NYSTATIN POWDER 100,000 UNITS/GM - 15 GM TOPICAL POWDER TP SCH (11:11)
[2017-11-22] MEDS: oxyCODONE HCL 5 MG TABLET PO PRN (12:16)
[2017-11-22] MEDS: ACETAMINOPHEN 325 MG TABLET (FP) PO PRN (12:16)
--- NOTE | 2017-11-22 12:56 | DS ---
Physical Examination Vital Signs: Vital Signs Temperature 98.4 F 11/22/17 09:09 Pulse Rate 79 11/22/17 09:09 Respiratory Rate 22 11/22/17 09:09 Blood Pressure 158/74 11/22/17 09:09 O2 Sat by Pulse Oximetry (%) 100 11/21/17 21:00 Constitutional: Yes: Well Nourished, No Distress, Calm Respiratory: Yes: Regular, Diminished (BLLL) Gastrointestinal: Yes: Normal Bowel Sounds, Soft, Abdomen, Obese Musculoskeletal: Yes: Muscle Weakness Edema: Yes Edema: LLE: Trace, RLE: Trace Peripheral Pulses WNL: Yes Neurological: Yes: Alert, Oriented Psychiatric: Yes: Alert, Oriented Labs: CBC, BMP 11/21/17 06:15 11/20/17 06:15 Discharge Summary Reason For Visit: URINARY TRACT INFECTION,LEUKOCYTOSIS Current Active Problems Abnormal antibody titer (Acute) Acute kidney failure (Acute) CML (chronic myelocytic leukemia) (Acute) Constipation (Acute) Fibromyalgia (Acute) Hypothyroid (Acute) Left upper quadrant pain (Acute) Seizure (Acute) Spinal stenosis (Acute) Thrombocytosis (Acute) Thrombocytosis (Acute) UTI (urinary tract infection) (Acute) Weakness (Acute) Chronic pain of multiple joints (Chronic) Chronic renal insufficiency, stage III (moderate) (Chronic) Chronic use of opiate for therapeutic purpose (Chronic) Degenerative disc disease (Chronic) Diabetes mellitus with renal manifestations, controlled (Chronic) Leukocytosis (Chronic) Hospital Course: 72-year-old female with past medical history of MS, OA, CVA, CKD. Who presents to the ED for leukocytosis of white count of 40. The patient reports 2 days of fatigue and generalized weakness and total body aches. Denies fevers or chills. Does report some mild discomfort with urination. The patient underwent routine blood work 2 days ago from her doctor's office which demonstrate a white count of 40 and the patient is directed to the ER. Patient reports feeling generally weak. She typically laboratory with a walker. However, lately she's been having poor appetite. She is also complaining about right leg pain in addition to abdominal discomfort. Condition: Stable - Instructions Referrals: Mayte Price MD [Staff Physician] - Paris Blanco MD [Staff Physician] - Bran De Leon MD [Primary Care Provider] - Disposition: VNS/HOME HEALTH CARE - Home Medications Comprehensive Discharge Medication List: Ambulatory Orders Amlodipine Besylate [Norvasc -] 2.5 mg PO DAILY 09/03/15 Ergocalciferol (Vitamin D2) [Drisdol] 50,000 units PO WEEKLY 09/03/15 Ferrous Sulfate [Feosol] 325 mg PO DAILY 09/03/15 Sennosides [Senna] 8.6 mg PO DAILY PRN 09/03/15 Aspirin Coated [Ecotrin -] 81 mg PO DAILY #30 tablet.ec 09/10/15 Docusate Sodium [Colace -] 300 mg PO HS #30 capsule 09/10/15 Furosemide [Lasix -] 20 mg PO DAILY #30 tablet 09/10/15 Losartan Potassium [Cozaar -] 50 mg PO DAILY #30 tablet 09/10/15 Magnesium Oxide 400 mg PO BID #7 tablet 09/10/15 Esomeprazole Magnesium [Nexium 24Hr] 40 mg PO DAILY 05/08/17 Gabapentin [Neurontin -] 400 mg PO Q8H #90 capsule 10/01/17 Diphenhydramine HCl [Benadryl Capsule -] 25 mg PO BID PRN 11/06/17 clonazePAM [KlonoPIN -] 0.5 mg PO BID 11/06/17 Acetaminophen [Tylenol .Regular Strength -] 650 mg PO Q4H PRN tablet 11/20/17 Allopurinol [Zyloprim -] 300 mg PO DAILY #30 tablet 11/20/17 Calamine 8% Topical Lotion - 1 applic TP BID PRN #1 bottle 11/20/17 Diphenhydramine HCl [Benadryl Capsule -] 25 mg PO Q6H PRN #120 capsule 11/20/17 Imatinib Mesylate [Gleevec (Nf) -] 400 mg PO DAILY #30 tablet 11/20/17 Levothyroxine [Synthroid -] 25 mcg PO DAILY@0700 #30 tablet 11/20/17 Nystatin Powder [Nystop Powder -] 1 applic TP DAILY #1 applic 11/20/17 Oxycodone HCl [Oxaydo] 7.5 mg PO TID PRN #15 tablet.orl MDD 3 11/20/17 Polyethylene Glycol 3350 [Miralax 119 gm Btl -] 17 gm PO DAILY #1 bottle Pramipexole Dihydrochloride [Mirapex -] 0.5 mg PO TID tablet 11/20/17 Triamcinolone 0.025% Ointment [Aristocort 0.025% Ointment -] 1 applic TP DAILY # 45 g 11/20/17 levETIRAcetam [Keppra -] 1,000 mg PO BID #120 tablet 11/20/17
--- NOTE | 2017-11-22 12:56 | PN ---
Progress Note, Physician Chief Complaint: Patient seen in her room. seems cofortable. No chest pain, No SOB. Maintains good urine output. History of Present Illness: 72 year old woman with PMhx of MS, Newly diagnosed CML with Thrombocytosis/ Leukocytosis with AMS and Cr of 1.3. H/o MS. Recent seizure. Renal functions have improved since. Mild tendency for Hyperkalemia. - Current Medication List Current Medications: Active Medications Acetaminophen (Tylenol -) 650 mg PO Q4H PRN PRN Reason: FEVER Last Admin: 11/22/17 12:16 Dose: 650 mg Allopurinol (Zyloprim -) 300 mg PO DAILY [facility] Last Admin: 11/22/17 11:05 Dose: 300 mg Amlodipine Besylate (Norvasc -) 2.5 mg PO DAILY [facility] Last Admin: 11/22/17 11:05 Dose: 2.5 mg Calamine (Calamine 8% Topical Lotion -) 1 applic TP BID PRN PRN Reason: FOR ITCHING Last Admin: 11/15/17 21:39 Dose: 1 applic Clonazepam (Klonopin -) 1 mg PO TID [facility] Last Admin: 11/22/17 06:00 Dose: 1 mg Diphenhydramine HCl (Benadryl -) 25 mg PO Q6H PRN PRN Reason: FOR ITCHING Last Admin: 11/19/17 22:25 Dose: 25 mg Docusate Sodium (Colace -) 300 mg PO HS [facility] Last Admin: 11/21/17 21:31 Dose: Not Given Ferrous Sulfate (Feosol -) 325 mg PO DAILY [facility] Last Admin: 11/22/17 11:05 Dose: 325 mg Gabapentin (Neurontin -) 400 mg PO TID [facility] Last Admin: 11/22/17 06:00 Dose: 400 mg Heparin Sodium (Porcine) (Heparin -) 5,000 unit SQ TID [facility] Last Admin: 11/22/17 06:00 Dose: 5,000 unit Imatinib Mesylate (Gleevec (Restricted To Oncology) -) 400 mg PO DAILY [facility] Last Admin: 11/22/17 11:06 Dose: 400 mg Levetiracetam (Keppra -) 1,000 mg PO BID [facility] Last Admin: 11/22/17 11:06 Dose: 1,000 mg Levothyroxine Sodium (Synthroid -) 25 mcg PO DAILY@0700 [facility] Last Admin: 11/22/17 07:00 Dose: 25 mcg Losartan Potassium (Cozaar -) 50 mg PO DAILY [facility] Last Admin: 11/22/17 11:05 Dose: 50 mg Non-Formulary Medication (Patient's Own Med) 1 each NR Mo [facility] Nystatin (Nystop Powder -) 1 applic TP DAILY [facility] Last Admin: 11/22/17 11:11 Dose: Not Given Oxycodone HCl (Roxicodone -) 7.5 mg PO Q8H PRN PRN Reason: PAIN LEVEL 7 - 10 Last Admin: 11/22/17 12:16 Dose: 7.5 mg Pantoprazole Sodium (Protonix -) 40 mg PO DAILY [facility] Last Admin: 11/22/17 11:05 Dose: 40 mg Polyethylene Glycol (Miralax (For Daily Use) -) 17 gm PO DAILY [facility] Last Admin: 11/22/17 11:07 Dose: Not Given Pramipexole Dihydrochloride (Mirapex -) 0.5 mg PO TID [facility] Last Admin: 11/22/17 06:00 Dose: 0.5 mg Senna (Senna -) 1 tab PO DAILY PRN PRN Reason: CONSTIPATION Last Admin: 11/18/17 09:03 Dose: 1 tab Triamcinolone Acetonide (Aristocort 0.025% Ointment -) 1 applic TP DAILY [facility] Last Admin: 11/22/17 11:11 Dose: 1 applic - Objective Vital Signs: Vital Signs Temperature 98.4 F 11/22/17 09:09 Pulse Rate 79 11/22/17 09:09 Respiratory Rate 22 11/22/17 09:09 Blood Pressure 158/74 11/22/17 09:09 O2 Sat by Pulse Oximetry (%) 100 11/21/17 21:00 Constitutional: Yes: Well Nourished, Anxious Eyes: Yes: Conjunctiva Clear HENT: Yes: Normocephalic Neck: Yes: Trachea Midline Cardiovascular: Yes: S1, S2 Respiratory: Yes: CTA Bilaterally, Diminished Gastrointestinal: Yes: Normal Bowel Sounds, Soft, Abdomen, Obese Genitourinary: No: Bladder Distention, CVA Tenderness - Left, CVA Tenderness - Right Extremities: No: Calf Tenderness Labs: CBC, BMP 11/21/17 06:15 11/20/17 06:15 INR, PTT INR 1.16 (0.82-1.09) H 11/13/17 06:45 Fibrinogen 422.0 mg/dL (238-498) 11/10/17 05:15 Problem List - Problems (1) Acute kidney failure Code(s): N17.9 - ACUTE KIDNEY FAILURE, UNSPECIFIED (2) CML (chronic myelocytic leukemia) Code(s): C92.10 - CHRONIC MYELOID LEUK, BCR/ABL-POSITIVE, NOT ACHIEVE REMIS (3) Fibromyalgia Code(s): M79.7 - FIBROMYALGIA (4) Hypothyroid Code(s): E03.9 - HYPOTHYROIDISM, UNSPECIFIED (5) Seizure Code(s): R56.9 - UNSPECIFIED CONVULSIONS (6) Weakness Code(s): R53.1 - WEAKNESS (7) Chronic renal insufficiency, stage III (moderate) Code(s): N18.3 - CHRONIC KIDNEY DISEASE, STAGE 3 (MODERATE) (8) Diabetes Code(s): E11.9 - TYPE 2 DIABETES MELLITUS WITHOUT COMPLICATIONS (9) History of CVA (cerebrovascular accident) Code(s): Z86.73 - PRSNL HX OF TIA (TIA), AND CEREB INFRC W/O RESID DEFICITS Assessment/Plan 72 year old woman with PMhx of MS, Newly diagnosed CML with thrombocytosis/ leukocytosis with AMS and ADELA. Renal functions are stable. Renal functions fairly stable. No specific therapy at this point. inial hyperkalemia. Can be monitored periodically. Will monitor the renal functions with you. Mayte Price MD
[2017-11-22 13:41] VITALS: BP 135/54; PULSE 77; TEMP 98.9
== END 2017-11-22 18:13 | DRG 841 ==
LOC: JER 18:17 → JERBED 23:23 → J8W 11-05 01:07 → OBSVTOIN 11-06 16:39 → J8W 11-07 21:34 → J4W 11-07 21:36 → JICU 11-08 17:35 → J7W 11-13 22:59 → JICU 11-14 19:47 → J7W 11-15 17:21
PROVIDERS: ADMIT Internal Medicine; ATTEND Family Medicine
PROC: 6A551Z2 Pheresis of Platelets, Multiple (ICD-10-PCS; principal; 2017-11-09)
PROC: 30233N1 Transfusion of Nonautologous Red Blood Cells into Peripheral Vein, Percutaneous Approach (ICD-10-PCS; 2017-11-09)
PROC: 05HM33Z Insertion of Infusion Device into Right Internal Jugular Vein, Percutaneous Approach (ICD-10-PCS; 2017-11-09)
PROC: 5A1935Z Respiratory Ventilation, Less than 24 Consecutive Hours (ICD-10-PCS; 2017-11-10)
PROC: 0BH17EZ Insertion of Endotracheal Airway into Trachea, Via Natural or Artificial Opening (ICD-10-PCS; 2017-11-10)
DX: C92.10 Chronic myeloid leukemia, BCR/ABL-positive, not having achieved remission (principal); N39.0 Urinary tract infection, site not specified; M47.12 Other spondylosis with myelopathy, cervical region; N17.9 Acute kidney failure, unspecified; J98.11 Atelectasis; G35 Multiple sclerosis; R53.1 Weakness; D47.3 Essential (hemorrhagic) thrombocythemia; D72.89 Other specified disorders of white blood cells; N18.3 Chronic kidney disease, stage 3 (moderate); F41.8 Other specified anxiety disorders; Z79.899 Other long term (current) drug therapy; E03.9 Hypothyroidism, unspecified; M48.00 Spinal stenosis, site unspecified; E11.9 Type 2 diabetes mellitus without complications; R56.9 Unspecified convulsions; K59.00 Constipation, unspecified; D64.9 Anemia, unspecified; E87.5 Hyperkalemia; G25.81 Restless legs syndrome; I25.10 Atherosclerotic heart disease of native coronary artery without angina pectoris
CPT/HCPCS: 31500; 36415; 36430; 36600; 70450-TC; 70544-TC; 70551-TC; 70552-TC; 71045-TC-FY; 71250-TC; 72125-TC; 72131-TC; 72141-TC; 74018-TC-FY; 74150-TC; 80048; 80053; 80307; 81003; 81015; 82272; 82550; 82570; 82607; 82668; 82728; 82746; 82803; 82962; 83540; 83550; 83605; 83615; 83735; 84100; 84146; 84155; 84165; 84300; 84439; 84443; 84484; 84550; 85025; 85027; 85044; 85246; 85247; 85384; 85610; 85651; 85730; 86038; 86140; 86162; 86225; 86431; 86850; 86900; 86901; 86922; 87040; 87045; 87046; 87086; 87324; 87449; 88300-TC; 93005; 93010; 93971-TC; 94002; 95816; 97116-GP; 97161-GP; 99283-25; G0378; J0131; J1644; J7030; J8999; P9038; P9058

== ENCOUNTER 2018-02-04 10:04 | Inpatient (IN) | payer OTHER ==
[2018-02-04] MEDS ORDERED: morphine CARPU-JECT 4 MG/1 ML DISP.SYRIN IVPUSH ONE ×2 (11:01→12:39)
[2018-02-04] MEDS ORDERED: ONDANSETRON 4 MG/2 ML VIAL IVPUSH ONE (11:01)
[2018-02-04] MEDS ORDERED: SODIUM CHLORIDE 500 ML IV STA (11:01)
[2018-02-04 11:02] LABS: BASO % 1.7 % (0-2.0); EOS % 1.1 % (0-4.5); HEMATOCRIT 32.8 % (32.4-45.2); HEMOGLOBIN 10.5 GM/dL (10.7-15.3); LYMPH % 23.3 % (8-40); MCH 26.5 pg (25.7-33.7); MEAN CELL VOLUME 82.8 fl (80-96); MEAN PLT VOLUME 8.2 fl (7.5-11.1); MONO % 8.7 % (3.8-10.2); NEUT % 65.2 % (42.8-82.8); PLATELET COUNT 402 K/MM3 (134-434); RBC 3.96 M/mm3 (3.60-5.2); RDW 17.3 % (11.6-15.6); WHITE BLOOD COUNT 7.8 K/mm3 (4.0-10.0)
[2018-02-04] MEDS ORDERED: MORPHINE SULFATE 2 MG/ML VIAL ONE ×2 (11:04→13:02)
[2018-02-04] MEDS ORDERED: ONDANSETRON 4 MG/2 ML VIAL ONE (11:04)
[2018-02-04 11:26] LABS: URINE APPEARANCE CLEAR; URINE BILIRUBIN NEGATIVE (<2.0 mg/dL); URINE COLOR YELLOW; URINE GLUCOSE (UA) NEGATIVE (NEGATIVE); URINE KETONE NEGATIVE (NEGATIVE); URINE LEUK ESTERASE NEGATIVE (NEGATIVE); URINE NITRITE NEGATIVE (NEGATIVE); URINE UROBILINOGEN NEGATIVE mg/dL (0.2-1.0)
[2018-02-04 11:28] LABS: URINE PROTEIN 2+ (NEGATIVE)
--- NOTE | 2018-02-04 11:28 | PDOC ---
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 denies: chest pain, cough, diaphoresis, fever/chills, headaches, shortness of breath <KyleClementineAbbi - Last Filed: 02/04/18 16:53> - General Chief Complaint: Weakness Stated Complaint: WEAKNESS Time Seen by Provider: 02/04/18 10:08 Past History <Ashlee Harry - Last Filed: 02/04/18 15:35> - Past Medical History Anemia: No Asthma: Yes Cancer: Yes (LUNG 2011) Cardiac Disorders: No CVA: Yes (TIA ) COPD: No CHF: No Dementia: No Diabetes: Yes () GI Disorders: Yes (ACID REFLUX,COLITIS,ULCERS) Disorders: Yes (HAD SURGERY FOR KIDNEY STONES) HTN: Yes Hypercholesterolemia: No Liver Disease: No Seizures: No Thyroid Disease: Yes (PARTIAL THYROIDECTOMY 08/02,BENIGN NODULES) - Surgical History Abdominal Surgery: No Appendectomy: Yes Cardiac Surgery: No Cholecystectomy: No Lung Surgery: Yes (2012 RIGHT lobectomy for lung cancer,NO CHEMO OR RT) Neurologic Surgery: No Orthopedic Surgery: Yes (rt hip replacement, knee replacement) - Immunization History Immunization Up to Date: Yes - Suicide/Smoking/Psychosocial Hx Smoking Status: No Smoking History: Never smoked Have you smoked in the past 12 months: No Number of Cigarettes Smoked Daily: 0 If you are a former smoker, when did you quit?: many years ago Information on smoking cessation initiated: No Hx Alcohol Use: No Drug/Substance Use Hx: No Substance Use Type: None Hx Substance Use Treatment: No <Nathan Wright - Last Filed: 02/04/18 16:53> - Past Medical History Allergies/Adverse Reactions: Allergies Allergy/AdvReac Type Severity Reaction Status Date / Time Sulfa (Sulfonamide Allergy Severe Hives Verified 02/04/18 10:36 Antibiotics) Home Medications: Ambulatory Orders Amlodipine Besylate [Norvasc -] 2.5 mg PO DAILY 09/03/15 Ferrous Sulfate [Feosol] 325 mg PO DAILY 09/03/15 Sennosides [Senna] 8.6 mg PO DAILY PRN 09/03/15 Aspirin Coated [Ecotrin -] 81 mg PO DAILY #30 tablet.ec 09/10/15 Docusate Sodium [Colace -] 300 mg PO HS #30 capsule 09/10/15 Furosemide [Lasix -] 20 mg PO DAILY #30 tablet 09/10/15 Losartan Potassium [Cozaar -] 50 mg PO DAILY #30 tablet 09/10/15 Magnesium Oxide 400 mg PO BID #7 tablet 09/10/15 Gabapentin [Neurontin -] 400 mg PO Q8H #90 capsule 10/01/17 clonazePAM [KlonoPIN -] 0.5 mg PO BID 11/06/17 Acetaminophen [Tylenol .Regular Strength -] 650 mg PO Q4H PRN tablet 11/20/17 Allopurinol [Zyloprim -] 300 mg PO DAILY #30 tablet 11/20/17 Imatinib Mesylate [Gleevec (Nf) -] 400 mg PO DAILY #30 tablet 11/20/17 Levothyroxine [Synthroid -] 25 mcg PO DAILY@0700 #30 tablet 11/20/17 Nystatin Powder [Nystop Powder -] 1 applic TP DAILY #1 applic 11/20/17 Polyethylene Glycol 3350 [Miralax 119 gm Btl -] 17 gm PO DAILY #1 bottle Pramipexole Dihydrochloride [Mirapex -] 0.5 mg PO TID tablet 11/20/17 Triamcinolone 0.025% Ointment [Aristocort 0.025% Ointment -] 1 applic TP DAILY # 45 g 11/20/17 levETIRAcetam [Keppra -] 1,000 mg PO BID #120 tablet 11/20/17 Ergocalciferol [Vitamin D2] 50,000 unit PO Q7D #4 capsule 01/17/18 Oxycodone HCl/Acetaminophen [Percocet 10-325 mg Tablet] 1 each PO TID #90 tablet MDD 3 01/17/18 Amox-Tr/K Cl [Augmentin - 875Mg Tablet] 1 tab PO BID #14 tablet 01/31/18 Review of Systems - Review of Systems Constitutional: Yes: Weakness. No: Chills, Fever Respiratory: No: Cough, Shortness of Breath Cardiac (ROS): No: Chest Pain, Lightheadedness, Palpitations, Syncope ABD/GI: Yes: Nausea. No: Diarrhea, Vomiting : Yes: Dysuria Neurological: No: Headache, Dizziness <Nathan Wright - Last Filed: 02/04/18 16:53> *Physical Exam - Vital Signs Last Vital Signs Temp Pulse Resp BP Pulse Ox 98.3 F 82 18 114/75 97 02/04/18 10:20 02/04/18 10:40 02/04/18 10:40 02/04/18 10:40 02/04/18 10:40 <PieroAshlee nunn - Last Filed: 02/04/18 15:35> - Vital Signs Last Vital Signs Temp Pulse Resp BP Pulse Ox 98.3 F 82 18 114/75 97 02/04/18 10:20 02/04/18 10:40 02/04/18 10:40 02/04/18 10:40 02/04/18 10:40 - Physical Exam General Appearance: Yes: Appropriately Dressed, Moderate Distress HEENT: positive: Normal Voice Neck: positive: Supple Respiratory/Chest: positive: Lungs Clear, Normal Breath Sounds. negative: Respiratory Distress Cardiovascular: positive: Regular Rate, S1, S2 Gastrointestinal/Abdominal: positive: Normal Bowel Sounds, Tender (diffusely), Soft, Guarding (diffusely). negative: Pulsatile Mass, Distended, Rebound Musculoskeletal: negative: CVA Tenderness Extremity: positive: Pedal Edema Integumentary: positive: Dry, Warm Neurologic: positive: Fully Oriented, Alert, Normal Mood/Affect <Nathan Wright - Last Filed: 02/04/18 16:53> Heart Score/ECG Review - ECG Intrepretation Comment:: 02/04/18 11:51 Twelve-lead EKG was performed and reviewed by me. There is normal sinus rhythm with a normal rate. The axis is normal. The intervals are normal. There are no ST or T wave abnormalities. Impression: Normal twelve-lead EKG <Nathan Wright - Last Filed: 02/04/18 16:53> ED Treatment Course - LABORATORY CBC & Chemistry Diagram: 02/04/18 10:55 02/04/18 10:55 - ADDITIONAL ORDERS Additional order review: Laboratory Results 02/04/18 02/04/18 11:01 10:55 Sodium 140 Potassium 4.3 Chloride 106 Carbon Dioxide 26 Anion Gap 8 BUN 6 L Creatinine 0.9 Creat Clearance w eGFR > 60 Random Glucose 83 Calcium 8.4 L Total Bilirubin 0.3 AST 42 H ALT 29 Alkaline Phosphatase 148 H Creatine Kinase 95 Troponin I 0.02 Total Protein 7.3 Albumin 3.6 Lipase 128 Urine Color Yellow Urine Appearance Clear Urine pH 6.0 Ur Specific Kellogg 1.014 Urine Protein 2+ H Urine Glucose (UA) Negative Urine Ketones Negative Urine Blood Negative Urine Nitrite Negative Urine Bilirubin Negative Urine Urobilinogen Negative Ur Leukocyte Esterase Negative Urine WBC (Auto) 1 Urine RBC (Auto) 1 Urine Yeast Rare 02/04/18 10:55 RBC 3.96 MCV 82.8 MCHC 32.0 RDW 17.3 H MPV 8.2 Neutrophils % 65.2 Lymphocytes % 23.3 Monocytes % 8.7 Eosinophils % 1.1 Basophils % 1.7 - Medications Given in the ED: ED Medications Discontinued Medications Generic Name Dose Route Start Last Admin Trade Name Freq PRN Reason Stop Dose Admin Acetaminophen 1,000 mg 02/04/18 13:21 02/04/18 13:24 Ofirmev Injection - IVPB 02/04/18 13:22 1,000 mg ONCE ONE Administration Sodium Chloride 500 mls @ 500 mls/hr 02/04/18 11:01 02/04/18 11:06 Normal Saline - IV 02/04/18 12:00 500 mls/hr ASDIR STA Administration Lorazepam 1 mg 02/04/18 14:25 02/04/18 14:50 Ativan - PO 02/04/18 14:26 1 mg ONCE ONE Administration Lorazepam 1 mg 02/04/18 14:25 02/04/18 14:32 Ativan Injection - IVPUSH 02/04/18 14:26 1 mg ONCE ONE Administration Morphine Sulfate 2 mg 02/04/18 11:01 02/04/18 11:06 Morphine Injection - IVPUSH 02/04/18 11:02 2 mg ONCE ONE Administration Morphine Sulfate 2 mg 02/04/18 12:39 02/04/18 13:06 Morphine Injection - IVPUSH 02/04/18 12:40 2 mg ONCE ONE Administration Ondansetron HCl 4 mg 02/04/18 11:01 02/04/18 11:07 Zofran Injection IVPUSH 02/04/18 11:02 4 mg ONCE ONE Administration - Consult/PCP Time Called: 15:35 (Paged Dr. De La Rosa's service. ) <PieroAshlee nunn - Last Filed: 02/04/18 15:35> - LABORATORY CBC & Chemistry Diagram: 02/04/18 10:55 02/04/18 10:55 - ADDITIONAL ORDERS Additional order review: 02/04/18 10:55 RBC 3.96 MCV 82.8 MCHC 32.0 RDW 17.3 H MPV 8.2 Neutrophils % 65.2 Lymphocytes % 23.3 Monocytes % 8.7 Eosinophils % 1.1 Basophils % 1.7 - Medications Given in the ED: ED Medications Discontinued Medications Generic Name Dose Route Start Last Admin Trade Name Freq PRN Reason Stop Dose Admin Morphine Sulfate 2 mg 02/04/18 11:01 02/04/18 11:06 Morphine Injection - IVPUSH 02/04/18 11:02 2 mg ONCE ONE Administration Ondansetron HCl 4 mg 02/04/18 11:01 02/04/18 11:07 Zofran Injection IVPUSH 02/04/18 11:02 4 mg ONCE ONE Administration <Nathan Wright - Last Filed: 02/04/18 16:53> Medical Decision Making - Medical Decision Making 72 yo F, h/o MS w/ paraparesis, RLS, HTN, CVA, CRI, OA, cervical stenosis, UTI, migraines, seizures, anxiety, ambulates w/ walker, recent dx of 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 Also c/o ?dysuria w/ vague lower abd pain, no hematuria, flank pain, f/c. Also reports nausea, no vomiting, changes in BM, CP, SOB, diaphoresis, palpitations, cough, ADAME or dizziness. Of note, pt was admitted to [facility] 10/26 with similar medical complaints and found to have significant leukocytosis w/ ultimate dx of CML on w/u. Currently on gleevac and f/u with Dr Campbell of onc. See exam Generalized body aches Appears chronic based on records- has h/o OA and on percocet at home w/ no relief per pt, f/u w/ pain management -pain control -labs -reassess ?abd pain/dysuria C/o same during last admission Ucx neg for growth then No e/o pyelo -ua/cx pending 02/04/18 13:18 Labs, UA and EKG unremarkable. After 4 mg of morphine, patient still complaining of generalized body aches. Will continue to manage pain. If improved, can potentially be discharged to continue following up with her pain doctor, Dr. Fong. Patient states nausea has improved. Offered food, but declines. Will po trial w/ water 02/04/18 14:52 Pt states pain has somewhat improved, but does not feel that she can go home has she has no appetite and hasn't been able to take any of her home meds for the past 2 days. Patient also feels she is in urinary retention. States she is able to urinate "a little bit" last night but has not been able to urinate in ER despite urge and indeed had to have straight cath placed for urine. Has some lower abdominal pressure. Will place mayer, continue to hydrate and admit at this time. Dr De La Rosa aware <Nathan Wright - Last Filed: 02/04/18 16:53> *DC/Admit/Observation/Transfer <Ashlee Harry - Last Filed: 02/04/18 15:35> - Discharge Dispostion Decision to Admit order: Yes <Nathan Wright - Last Filed: 02/04/18 16:53> Diagnosis at time of Disposition: Anorexia, FTT (failure to thrive) in adult - Discharge Dispostion Condition at time of disposition: Fair - Referrals Referrals: Bran De Leon MD [Primary Care Provider] - - Patient Instructions - Post Discharge Activity
[2018-02-04 11:32] LABS: ALBUMIN 3.6 g/dl (3.4-5.0); ANION GAP 8 MMOL/L (8-16); BILIRUBIN,TOTAL 0.3 mg/dL (0.2-1.0); BLOOD UREA NITROGEN 6 mg/dL (7-18); CALCIUM 8.4 mg/dL (8.5-10.1); CHLORIDE 106 mmol/L (98-107); CO2 26 mmol/L (21-32); CREATININE 0.9 mg/dL (0.55-1.02); GLUCOSE,RANDOM 83 mg/dL (74-106); LIPASE 128 U/L (73-393); POTASSIUM 4.3 mmol/L (3.5-5.1); SGOT/AST 42 U/L (15-37); SGPT/ALT 29 U/L (12-78); SODIUM 140 mmol/L (136-145); TOT PROT 7.3 g/dl (6.4-8.2)
[2018-02-04 11:32] LABS: YEAST RARE
[2018-02-04 11:35] LABS: ALK PHOS 148 U/L (45-117)
[2018-02-04] MEDS ORDERED: ACETAMINOPHEN 1000 MG/100 ML VIAL (NON FORMULARY) IVPB ONE (13:21)
[2018-02-04] MEDS ORDERED: amLODIPine BESYLATE 2.5 MG TABLET (FP) PO ONE (13:22)
[2018-02-04] MEDS ORDERED: FUROSEMIDE 20 MG TABLET (FP) PO ONE (13:22)
[2018-02-04] MEDS ORDERED: ACETAMINOPHEN INJECTION 100 ML IVPB ONE (13:25)
[2018-02-04] MEDS ORDERED: LORazepam 1 MG TABLET PO ONE (14:25)
[2018-02-04] MEDS ORDERED: LORazepam 2 MG/ML SDV VIAL ONE (14:31)
--- NOTE | 2018-02-04 16:53 | HP ---
Admitting History and Physical - Primary Care Physician PCP: Justina Menchaca - Admission Chief Complaint: PAIN/WEAKNESS/NAUSEA/URINARY RETENTION History of Present Illness: 72 Y/O FEMALE WITH H/O CML, OLD CVA, FIBROMYALGIA, SPINAL STENOSISANXIETY, HTN, LIPIDEMIA,OBESITY HERE WITH SYMPTOMS OF POOR APPETITE, WEAKNESS, GENERALIZED PAIN AND URINARY RETENTION FOR 2 DAYS. PATIENT IS ON GLEEVAC FOR CML. 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 Cardiovascular: Yes: HTN Pulmonary: Yes: Asthma, COPD Gastrointestinal: Yes: GERD (using walker at home ) Renal/: Yes: Renal Inusuff ...: No Heme/Onc: Yes: Anemia Psych: Yes: Depression Musculoskeletal: Yes: Osteoarthritis, Other (DDD) Rheumatology: Yes: Rheumatoid Arthritis Endocrine: Yes: Diabetes Mellitus - Past Surgical History Past Surgical History: Yes: Hysterectomy, Joint Replacement, Cholecystectomy - Smoking History Smoking history: Never smoked Have you smoked in the past 12 months: No Aproximately how many cigarettes per day: 0 If you are a former smoker, when did you quit?: many years ago - Alcohol/Substance Use Hx Alcohol Use: No History of Substance Use: reports: None - Social History ADL: Independent History of Recent Travel: No Home Medications - Allergies Allergies/Adverse Reactions: Allergies Allergy/AdvReac Type Severity Reaction Status Date / Time Sulfa (Sulfonamide Allergy Severe Hives Verified 02/04/18 10:36 Antibiotics) - Home Medications Home Medications: Ambulatory Orders Amlodipine Besylate [Norvasc -] 2.5 mg PO DAILY 09/03/15 Ferrous Sulfate [Feosol] 325 mg PO DAILY 09/03/15 Sennosides [Senna] 8.6 mg PO DAILY PRN 09/03/15 Aspirin Coated [Ecotrin -] 81 mg PO DAILY #30 tablet.ec 09/10/15 Docusate Sodium [Colace -] 300 mg PO HS #30 capsule 09/10/15 Furosemide [Lasix -] 20 mg PO DAILY #30 tablet 09/10/15 Losartan Potassium [Cozaar -] 50 mg PO DAILY #30 tablet 09/10/15 Magnesium Oxide 400 mg PO BID #7 tablet 09/10/15 Gabapentin [Neurontin -] 400 mg PO Q8H #90 capsule 10/01/17 clonazePAM [KlonoPIN -] 0.5 mg PO BID 11/06/17 Acetaminophen [Tylenol .Regular Strength -] 650 mg PO Q4H PRN tablet 11/20/17 Allopurinol [Zyloprim -] 300 mg PO DAILY #30 tablet 11/20/17 Imatinib Mesylate [Gleevec (Nf) -] 400 mg PO DAILY #30 tablet 11/20/17 Levothyroxine [Synthroid -] 25 mcg PO DAILY@0700 #30 tablet 11/20/17 Nystatin Powder [Nystop Powder -] 1 applic TP DAILY #1 applic 11/20/17 Polyethylene Glycol 3350 [Miralax 119 gm Btl -] 17 gm PO DAILY #1 bottle Pramipexole Dihydrochloride [Mirapex -] 0.5 mg PO TID tablet 11/20/17 Triamcinolone 0.025% Ointment [Aristocort 0.025% Ointment -] 1 applic TP DAILY # 45 g 11/20/17 levETIRAcetam [Keppra -] 1,000 mg PO BID #120 tablet 11/20/17 Ergocalciferol [Vitamin D2] 50,000 unit PO Q7D #4 capsule 01/17/18 Oxycodone HCl/Acetaminophen [Percocet 10-325 mg Tablet] 1 each PO TID #90 tablet MDD 3 01/17/18 Amox-Tr/K Cl [Augmentin - 875Mg Tablet] 1 tab PO BID #14 tablet 01/31/18 Family Disease History - Family Disease History Family Disease History: CA: Mother (, cancer), Other: Father ( - does not know why), Brother (pain - arthritis), Sister (four sisters - little contact), Son (one living healthy), Daughter (one living healthy) Review of Systems - Review of Systems Constitutional: reports: Loss of Appetite, Weakness Eyes: reports: No Symptoms HENT: reports: No Symptoms Neck: reports: No Symptoms Cardiovascular: reports: No Symptoms Respiratory: reports: No Symptoms Gastrointestinal: reports: Other Genitourinary: reports: Other Musculoskeletal: reports: Extremity Pain Integumentary: reports: No Symptoms Neurological: reports: No Symptoms Endocrine: reports: No Symptoms Hematology/Lymphatic: reports: No Symptoms Psychiatric: reports: Anxiety, Depression Physical Examination Vital Signs: Vital Signs Temperature 98.3 F 02/04/18 10:20 Pulse Rate 64 02/04/18 16:09 Respiratory Rate 17 02/04/18 16:09 Blood Pressure 164/65 02/04/18 16:09 O2 Sat by Pulse Oximetry (%) 100 02/04/18 16:09 Constitutional: Yes: Mild Distress Eyes: Yes: WNL HENT: Yes: WNL Neck: Yes: WNL Cardiovascular: Yes: WNL Respiratory: Yes: WNL Gastrointestinal: Yes: Abdomen, Obese Renal/: Yes: Roth Present Musculoskeletal: Yes: Muscle Weakness Extremities: Yes: Other Edema: Yes Integumentary: Yes: Venous Stasis Changes Wound/Incision: Yes: Open to air Neurological: Yes: Pre-Existing Deficit ...Motor Strength: LLE, RLE Psychiatric: Yes: Other Labs: CBC, BMP 02/04/18 10:55 02/04/18 10:55 Problem List - Problems (1) FTT (failure to thrive) in adult Code(s): R62.7 - ADULT FAILURE TO THRIVE (2) Anemia Code(s): D64.9 - ANEMIA, UNSPECIFIED (3) CML (chronic myelocytic leukemia) Code(s): C92.10 - CHRONIC MYELOID LEUK, BCR/ABL-POSITIVE, NOT ACHIEVE REMIS (4) Fibromyalgia Code(s): M79.7 - FIBROMYALGIA (5) Hypertension Code(s): I10 - ESSENTIAL (PRIMARY) HYPERTENSION (6) Hypothyroid Code(s): E03.9 - HYPOTHYROIDISM, UNSPECIFIED (7) Spinal stenosis Code(s): M48.00 - SPINAL STENOSIS, SITE UNSPECIFIED (8) History of CVA (cerebrovascular accident) Code(s): Z86.73 - PRSNL HX OF TIA (TIA), AND CEREB INFRC W/O RESID DEFICITS (9) Obesity, Class III, BMI 40-49.9 (morbid obesity) Code(s): E66.01 - MORBID (SEVERE) OBESITY DUE TO EXCESS CALORIES (10) Osteoarthritis Code(s): M19.90 - UNSPECIFIED OSTEOARTHRITIS, UNSPECIFIED SITE Qualifiers: Osteoarthritis location: unspecified site Assessment/Plan IVF, ZOFRAN PRN NAUSEA PAIN CONTROL CHECK THYROID PANEL PT EVAL KEEP ON OBSERVATION FOR NOW
[2018-02-04] MEDS ORDERED: oxyCODONE HCL 5 MG TABLET ONE (16:59)
[2018-02-04] MEDS ORDERED: LEVOTHYROXINE NA 25 MCG TABLET (FP) ONE (17:00)
[2018-02-04] MEDS: oxyCODONE HCL 5 MG TABLET PO PRN ×2 (17:01→22:47)
[2018-02-04] MEDS: LEVOTHYROXINE NA 25 MCG TABLET (FP) PO ONE ×2 (17:01→17:02)
[2018-02-04] MEDS: ACETAMINOPHEN 325 MG TABLET (FP) PO PRN (22:19)
[2018-02-04] MEDS: GABAPENTIN 400 MG CAPSULE (FP) PO SCH (22:19)
[2018-02-04] MEDS: levETIRAcetam 500 MG TABLET (FP) PO SCH (22:19)
[2018-02-04] MEDS: DOCUSATE SODIUM 100 MG CAPSULE (FP) PO SCH (22:19)
[2018-02-04] MEDS: SENNOSIDES 8.6MG TABLET (FP) PO SCH (22:20)
[2018-02-04] MEDS: clonazePAM 0.5 MG TABLET PO PRN (22:52)
[2018-02-04] MEDS: PRAMIPEXOLE DIHYDROCHLORIDE 0.5 MG TABLET PO SCH (22:52)
[2018-02-05] MEDS: oxyCODONE HCL 5 MG TABLET PO PRN ×3 (05:38→18:27)
[2018-02-05] MEDS: HEPARIN NA (PORCINE) 5,000 UNITS/ML 1ML VIAL SQ SCH ×3 (06:43→21:12)
[2018-02-05] MEDS: LEVOTHYROXINE NA 25 MCG TABLET (FP) PO SCH (06:43)
[2018-02-05] MEDS: GABAPENTIN 400 MG CAPSULE (FP) PO SCH ×3 (06:43→21:12)
[2018-02-05] MEDS: PRAMIPEXOLE DIHYDROCHLORIDE 0.5 MG TABLET PO SCH ×3 (06:44→21:13)
[2018-02-05 08:20] LABS: MCH 26.8 pg (25.7-33.7); MCHC 32.2 g/dl (32.0-36.0); MEAN PLT VOLUME 7.9 fl (7.5-11.1); PLATELET COUNT 406 K/MM3 (134-434); RBC 3.74 M/mm3 (3.60-5.2)
[2018-02-05] MEDS ORDERED: ONDANSETRON 4 MG/2 ML VIAL IVPUSH ONE (09:15)
[2018-02-05 09:30] LABS: CHLORIDE 107 mmol/L (98-107); POTASSIUM 4.1 mmol/L (3.5-5.1); SODIUM 140 mmol/L (136-145)
[2018-02-05] MEDS ORDERED: ONDANSETRON 4 MG/2 ML VIAL ONE (09:39)
--- NOTE | 2018-02-05 09:48 | EKG ---
Test Reason : Blood Pressure : / mmHG Vent. Rate : 069 BPM Atrial Rate : 069 BPM P-R Int : 124 ms QRS Dur : 076 ms QT Int : 420 ms P-R-T Axes : 078 091 107 degrees QTc Int : 450 ms POOR DATA QUALITY, INTERPRETATION MAY BE ADVERSELY AFFECTED NORMAL SINUS RHYTHM RIGHTWARD AXIS NONSPECIFIC T WAVE ABNORMALITY ABNORMAL ECG Confirmed by Gordo Samson MD ([id number]) on 02/05/2018 9:47:55 AM Referred By: Confirmed By:Gordo Samson MD
[2018-02-05 09:49] LABS: ALBUMIN 3.3 g/dl (3.4-5.0); ALK PHOS 138 U/L (45-117); ANION GAP 7 MMOL/L (8-16); BILIRUBIN,TOTAL 0.4 mg/dL (0.2-1.0); BLOOD UREA NITROGEN 6 mg/dL (7-18); CALCIUM 8.2 mg/dL (8.5-10.1); CO2 26 mmol/L (21-32); CREATININE 0.8 mg/dL (0.55-1.02); GLUCOSE,RANDOM 72 mg/dL (74-106); LIPASE 101 U/L (73-393); SGOT/AST 33 U/L (15-37); SGPT/ALT 29 U/L (12-78); TOT PROT 6.6 g/dl (6.4-8.2)
[2018-02-05] MEDS ORDERED: PT OWN MED DRAWER 7, Y5N ONE ×3 (10:04→21:11)
[2018-02-05] MEDS: LOSARTAN POTASSIUM 50 MG TABLET (FP) PO SCH (10:23)
[2018-02-05] MEDS: amLODIPine BESYLATE 2.5 MG TABLET (FP) PO SCH (10:23)
[2018-02-05] MEDS: ASPIRIN COATED 81 MG TABLET.EC PO SCH (10:23)
[2018-02-05] MEDS: levETIRAcetam 500 MG TABLET (FP) PO SCH ×2 (10:23→21:13)
[2018-02-05] MEDS: ALLOPURINOL 300 MG TABLET (FP) PO SCH (10:23)
[2018-02-05] MEDS ORDERED: ONDANSETRON 4 MG/2 ML VIAL IVPB PRN (11:42)
--- NOTE | 2018-02-05 12:39 | PN ---
Progress Note, Physician Chief Complaint: Nausea Vomiting Diarrhea Abdominal pain History of Present Illness: NAD in bed complaining of diarrhea, Nausea, vomiting, bloating from past 4 days Labs unremarkable - Current Medication List Current Medications: Active Medications Acetaminophen (Tylenol -) 650 mg PO Q6H PRN PRN Reason: FEVER Last Admin: 02/04/18 22:19 Dose: 650 mg Allopurinol (Zyloprim -) 300 mg PO DAILY [facility] Last Admin: 02/05/18 10:23 Dose: 300 mg Amlodipine Besylate (Norvasc -) 2.5 mg PO DAILY [facility] Last Admin: 02/05/18 10:23 Dose: 2.5 mg Aspirin (Ecotrin -) 81 mg PO DAILY [facility] Last Admin: 02/05/18 10:23 Dose: 81 mg Clonazepam (Klonopin -) 0.5 mg PO Q12H PRN PRN Reason: ANXIETY Last Admin: 02/04/18 22:52 Dose: 0.5 mg Docusate Sodium (Colace -) 300 mg PO HS [facility] Last Admin: 02/04/18 22:19 Dose: 300 mg Gabapentin (Neurontin -) 400 mg PO TID [facility] Last Admin: 02/05/18 06:43 Dose: 400 mg Heparin Sodium (Porcine) (Heparin -) 5,000 unit SQ TID [facility] Last Admin: 02/05/18 06:43 Dose: 5,000 unit Levetiracetam (Keppra -) 1,000 mg PO BID [facility] Last Admin: 02/05/18 10:23 Dose: 1,000 mg Levothyroxine Sodium (Synthroid -) 25 mcg PO DAILY@0700 [facility] Last Admin: 02/05/18 06:43 Dose: 25 mcg Losartan Potassium (Cozaar -) 50 mg PO DAILY [facility] Last Admin: 02/05/18 10:23 Dose: 50 mg Ondansetron HCl (Zofran Injection) 4 mg IVPB Q8H PRN PRN Reason: NAUSEA Oxycodone HCl (Roxicodone -) 10 mg PO Q6H PRN PRN Reason: PAIN LEVEL 7 - 10 Last Admin: 02/05/18 05:38 Dose: 10 mg Pramipexole Dihydrochloride (Mirapex -) 0.5 mg PO TID [facility] Last Admin: 02/05/18 06:44 Dose: 0.5 mg Senna (Senna -) 1 tab PO HS [facility] Last Admin: 02/04/18 22:20 Dose: 1 tab - Objective Vital Signs: Vital Signs Temperature 98.2 F 02/05/18 06:00 Pulse Rate 64 02/05/18 06:00 Respiratory Rate 20 02/05/18 06:00 Blood Pressure 156/77 02/05/18 06:00 O2 Sat by Pulse Oximetry (%) 100 02/04/18 23:46 Constitutional: Yes: Well Nourished, No Distress, Calm Cardiovascular: Yes: Regular Rate and Rhythm Respiratory: Yes: Regular Gastrointestinal: Yes: Soft, Abdomen, Obese, Hyperactive Bowel Sounds Musculoskeletal: Yes: Muscle Weakness Neurological: Yes: Alert, Oriented Psychiatric: Yes: Alert, Oriented Labs: CBC, BMP 02/05/18 08:00 02/05/18 08:00 Problem List - Problems (1) Diarrhea Assessment/Plan: -Stool micro -GI consult -probiotics -simethicone Code(s): R19.7 - DIARRHEA, UNSPECIFIED (2) Anemia Assessment/Plan: chronic -check stool OB, B12, Thyroid and iron profile -monitor trend Code(s): D64.9 - ANEMIA, UNSPECIFIED Assessment/Plan see problem list d/c leyla, pt states that she urinates but when she came in to ER she felt dehydrated and felt as if she wasn't urinating enough. Bladder scan in 12 hours, if retaining> 200 ml, re-insert mayer cath UC negative Physical therapy DVT prophylaxis
[2018-02-05] MEDS: LACTOBACILLUS ACIDOPHILUS 1 TABLET PO SCH ×2 (13:09→21:12)
[2018-02-05] MEDS: SIMETHICONE 40 MG/0.6 ML BOTTLE PO SCH ×3 (16:21→21:14)
[2018-02-05] MEDS: ACETAMINOPHEN 325 MG TABLET (FP) PO PRN (18:28)
--- NOTE | 2018-02-05 19:29 | CON.GI ---
Consult Consult Specialty:: GI: For Dr. Holcomb who resules coverage 02/06 Referred by:: Anabelle Jenkins NP Reason for Consultation:: Anemia - History of Present Illness Chief Complaint: I have pain History of Present Illness: 72F admitted from home for evaluation of: diffuse body pain complaints, nausea, vomiting, diarrhea She is a long standing patient of Dr. Bains and states that he is her 3rd mate Procedures performed by Dr. 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 colon 03/18/13: EGD: small hiatal hernia, antral erythema: path = mild reactive gastropathy, h. pylori negative 12/06/10: Colonoscopy 7.5mm polyp in cecum, 1.5cm ascending colon polyp, diminutive sigmoid colon polyp, scattered diverticula in left colon. 11/22/10 EGD: erosions at the [place], small hiatal hernia, AVM's of the body of stomach (ablated using APC), normal duodenum 11/24/08: EGD: normal esophagus, mild gastritis in body and antrum of the stomach Asked to evaluate anemia. She has a long standing history of anemia. She is on Gleevac for CML She explains that she feels that she wants to . - History Source History Provided By: Patient Limitations to Obtaining History: Poor Historian - Past Medical History DIRECTOR MERIT SYSTEM: Yes: 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 Cardio/Vascular: Yes: HTN Pulmonary: Yes: Asthma, COPD Gastrointestinal: Yes: GERD (using walker at home ) Renal/: Yes: Renal Inusuff ...: No Heme/Onc: Yes: Other (? CML) Psych: Yes: Depression Musculoskeletal: Yes: Osteoarthritis, Other (DDD) Rheumatology: Yes: Rheumatoid Arthritis Endocrine: Yes: Diabetes Mellitus Additional Medical History: as in HPI, morbidly obese - Past Surgical History Past Surgical History: Yes: Cholecystectomy, Hysterectomy (TIMBO/BSO), Joint Replacement (Right THR, Left TKR) Additional Surgical History: BTL - Alcohol/Substance Use Hx Alcohol Use: Yes (rum and coke on the weekends) History of Substance Use: reports: Marijuana (in past) - Smoking History Smoking history: Former smoker Have you smoked in the past 12 months: No Aproximately how many cigarettes per day: 0 If you are a former smoker, when did you quit?: many years ago - Social History Usual Living Arrangement: With Significant Other ADL: Independent 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 : [facility] History of Recent Travel: No Home Medications - Allergies Allergies/Adverse Reactions: Allergies Allergy/AdvReac Type Severity Reaction Status Date / Time Sulfa (Sulfonamide Allergy Severe Hives Verified 02/04/18 10:36 Antibiotics) - Home Medications Home Medications: Ambulatory Orders Amlodipine Besylate [Norvasc -] 2.5 mg PO DAILY 09/03/15 Ferrous Sulfate [Feosol] 325 mg PO DAILY 09/03/15 Sennosides [Senna] 8.6 mg PO DAILY PRN 09/03/15 Aspirin Coated [Ecotrin -] 81 mg PO DAILY #30 tablet.ec 09/10/15 Docusate Sodium [Colace -] 300 mg PO HS #30 capsule 09/10/15 Furosemide [Lasix -] 20 mg PO DAILY #30 tablet 09/10/15 Losartan Potassium [Cozaar -] 50 mg PO DAILY #30 tablet 09/10/15 Magnesium Oxide 400 mg PO BID #7 tablet 09/10/15 Gabapentin [Neurontin -] 400 mg PO Q8H #90 capsule 10/01/17 clonazePAM [KlonoPIN -] 0.5 mg PO BID 11/06/17 Acetaminophen [Tylenol .Regular Strength -] 650 mg PO Q4H PRN tablet 11/20/17 Allopurinol [Zyloprim -] 300 mg PO DAILY #30 tablet 11/20/17 Imatinib Mesylate [Gleevec (Nf) -] 400 mg PO DAILY #30 tablet 11/20/17 Levothyroxine [Synthroid -] 25 mcg PO DAILY@0700 #30 tablet 11/20/17 Nystatin Powder [Nystop Powder -] 1 applic TP DAILY #1 applic 11/20/17 Polyethylene Glycol 3350 [Miralax 119 gm Btl -] 17 gm PO DAILY #1 bottle Pramipexole Dihydrochloride [Mirapex -] 0.5 mg PO TID tablet 11/20/17 Triamcinolone 0.025% Ointment [Aristocort 0.025% Ointment -] 1 applic TP DAILY # 45 g 11/20/17 levETIRAcetam [Keppra -] 1,000 mg PO BID #120 tablet 11/20/17 Ergocalciferol [Vitamin D2] 50,000 unit PO Q7D #4 capsule 01/17/18 Oxycodone HCl/Acetaminophen [Percocet 10-325 mg Tablet] 1 each PO TID #90 tablet MDD 3 01/17/18 Amox-Tr/K Cl [Augmentin - 875Mg Tablet] 1 tab PO BID #14 tablet 01/31/18 Family Disease History - Family Disease History Family Disease History: CA: Mother (, cancer, unclear type), Other: Father ( - cancer, unclear type), Brother (1, pain - arthritis), Sister (four sisters - little contact), Son (one living healthy), Daughter (one living healthy) Review of Systems - Review of Systems Constitutional: denies: Fever, Unintentional Wgt. Loss Respiratory: reports: SOB. denies: Cough Gastrointestinal: reports: Abdominal Pain, Constipation, Diarrhea, Nausea, Vomiting. denies: Melena, Rectal Bleeding Musculoskeletal: reports: Back Pain, Extremity Pain Psychiatric: reports: Depression Physical Exam-GI Vital Signs: Vital Signs Temperature 99.7 F H 02/05/18 15:04 Pulse Rate 59 L 02/05/18 15:04 Respiratory Rate 18 02/05/18 16:00 Blood Pressure 147/55 02/05/18 15:04 O2 Sat by Pulse Oximetry (%) 96 02/05/18 16:00 Constitutional: Yes: Calm Eyes: No: Sclera Icterus Cardiovascular: Yes: Regular Rate and Rhythm, Murmur (2/6 systolic murmur at the left and right sternal border) Respiratory: Yes: CTA Bilaterally Gastrointestinal Inspection: Yes: Hernia (suspected tender ventral hernia midline and cephalad to the umbilicus), Scars (Pelvic surgical scar under pannus.) ...Auscultate: Yes: Normoactive Bowel Sounds ...Palpate: Yes: Tenderness (TTP diffusely) ...Percussion: No: Tympanitic ...Rectal Exam: Yes: Other (No external lesions, no masses, brown stool guaiac negative) Edema: No (No LE edema) Neurological: Yes: Alert Labs: CBC, BMP 02/05/18 08:00 02/05/18 08:00 Hepatic Panel Total Bilirubin 0.4 mg/dL (0.2-1.0) 02/05/18 08:00 AST 33 U/L (15-37) 02/05/18 08:00 ALT 29 U/L (12-78) 02/05/18 08:00 Alkaline Phosphatase 138 U/L (45-117) H D 02/05/18 08:00 Albumin 3.3 g/dl (3.4-5.0) L 02/05/18 08:00 Problem List - Problems (1) Anemia Assessment/Plan: Chronic normocytic anemia with multiple endoscopic procedures in the past. Guiaiac negative on exam. Can follow-up with Dr. Bains as an outpatient to discuss further testing. Given history of colon polyps she would be do for colonoscopy. Code(s): D64.9 - ANEMIA, UNSPECIFIED (2) Abdominal pain Assessment/Plan: Diffusely tender and also with a tender lump noted cephalad to the umbilicus. Suspected hernia. Ordered CT scan of the abdomen and pelvis with contrast to assess further. If it appears she has a symptomatic hernia, consider surgical eval. Code(s): R10.9 - UNSPECIFIED ABDOMINAL PAIN (3) Diarrhea Assessment/Plan: stool for O&P, culture, c. diff if diarrhea persists Code(s): R19.7 - DIARRHEA, UNSPECIFIED (4) Heart murmur Assessment/Plan: eval per PMD Code(s): R01.1 - CARDIAC MURMUR, UNSPECIFIED
[2018-02-05] MEDS: SENNOSIDES 8.6MG TABLET (FP) PO SCH (21:12)
[2018-02-05] MEDS: DOCUSATE SODIUM 100 MG CAPSULE (FP) PO SCH (21:12)
[2018-02-05] MEDS: clonazePAM 0.5 MG TABLET PO PRN (21:13)
[2018-02-06] MEDS: oxyCODONE HCL 5 MG TABLET PO PRN ×4 (01:23→22:52)
[2018-02-06] MEDS: ACETAMINOPHEN 325 MG TABLET (FP) PO PRN ×4 (01:23→22:52)
[2018-02-06] MEDS: GABAPENTIN 400 MG CAPSULE (FP) PO SCH ×3 (06:29→22:51)
[2018-02-06] MEDS: LEVOTHYROXINE NA 25 MCG TABLET (FP) PO SCH (06:29)
[2018-02-06] MEDS: PRAMIPEXOLE DIHYDROCHLORIDE 0.5 MG TABLET PO SCH ×3 (06:30→23:28)
[2018-02-06] MEDS: HEPARIN NA (PORCINE) 5,000 UNITS/ML 1ML VIAL SQ SCH ×3 (06:30→22:53)
[2018-02-06] MEDS: ASPIRIN COATED 81 MG TABLET.EC PO SCH (09:40)
[2018-02-06] MEDS: LACTOBACILLUS ACIDOPHILUS 1 TABLET PO SCH ×2 (09:40→22:52)
[2018-02-06] MEDS: amLODIPine BESYLATE 2.5 MG TABLET (FP) PO SCH (09:41)
[2018-02-06] MEDS: LOSARTAN POTASSIUM 50 MG TABLET (FP) PO SCH (09:41)
[2018-02-06] MEDS: ALLOPURINOL 300 MG TABLET (FP) PO SCH (09:41)
[2018-02-06] MEDS: levETIRAcetam 500 MG TABLET (FP) PO SCH ×2 (09:41→22:53)
[2018-02-06] MEDS: SIMETHICONE 40 MG/0.6 ML BOTTLE PO SCH ×4 (09:42→23:27)
--- NOTE | 2018-02-06 12:28 | PN ---
Progress Note, Physician Chief Complaint: Nausea Vomiting Diarrhea Abdominal pain History of Present Illness: NAD in bed complaining of diarrhea, Nausea, vomiting, bloating from past 4 days Labs unremarkable Seen by GI CT abdomen pelvis pending - Current Medication List Current Medications: Active Medications Acetaminophen (Tylenol -) 650 mg PO Q6H PRN PRN Reason: FEVER Last Admin: 02/06/18 08:02 Dose: 650 mg Allopurinol (Zyloprim -) 300 mg PO DAILY [facility] Last Admin: 02/06/18 09:41 Dose: 300 mg Amlodipine Besylate (Norvasc -) 2.5 mg PO DAILY [facility] Last Admin: 02/06/18 09:41 Dose: 2.5 mg Aspirin (Ecotrin -) 81 mg PO DAILY [facility] Last Admin: 02/06/18 09:40 Dose: 81 mg Clonazepam (Klonopin -) 0.5 mg PO Q12H PRN PRN Reason: ANXIETY Last Admin: 02/05/18 21:13 Dose: 0.5 mg Docusate Sodium (Colace -) 300 mg PO HS [facility] Last Admin: 02/05/18 21:12 Dose: 300 mg Gabapentin (Neurontin -) 400 mg PO TID [facility] Last Admin: 02/06/18 06:29 Dose: 400 mg Heparin Sodium (Porcine) (Heparin -) 5,000 unit SQ TID [facility] Last Admin: 02/06/18 06:30 Dose: 5,000 unit Lactobacillus Acidophilus (Bacid -) 1 tab PO BID [facility] Last Admin: 02/06/18 09:40 Dose: 1 tab Levetiracetam (Keppra -) 1,000 mg PO BID [facility] Last Admin: 02/06/18 09:41 Dose: 1,000 mg Levothyroxine Sodium (Synthroid -) 25 mcg PO DAILY@0700 [facility] Last Admin: 02/06/18 06:29 Dose: 25 mcg Losartan Potassium (Cozaar -) 50 mg PO DAILY [facility] Last Admin: 02/06/18 09:41 Dose: 50 mg Ondansetron HCl (Zofran Injection) 4 mg IVPB Q8H PRN PRN Reason: NAUSEA Oxycodone HCl (Roxicodone -) 10 mg PO Q6H PRN PRN Reason: PAIN LEVEL 7 - 10 Last Admin: 02/06/18 08:01 Dose: 10 mg Pramipexole Dihydrochloride (Mirapex -) 0.5 mg PO TID [facility] Last Admin: 02/06/18 06:30 Dose: 0.5 mg Senna (Senna -) 1 tab PO HS [facility] Last Admin: 02/05/18 21:12 Dose: 1 tab Simethicone (Mylicon Liquid -) 40 mg PO QID [facility] Last Admin: 02/06/18 09:42 Dose: 40 mg - Objective Vital Signs: Vital Signs Temperature 98.8 F 02/06/18 09:00 Pulse Rate 52 L 02/06/18 09:00 Respiratory Rate 20 02/06/18 09:00 Blood Pressure 162/86 02/06/18 09:00 O2 Sat by Pulse Oximetry (%) 96 02/06/18 09:00 Constitutional: Yes: Well Nourished, No Distress, Anxious Cardiovascular: Yes: Regular Rate and Rhythm Respiratory: Yes: Regular Gastrointestinal: Yes: Normal Bowel Sounds, Soft, Abdomen, Obese, Hyperactive Bowel Sounds, Tenderness (diffuse) Musculoskeletal: Yes: Muscle Weakness Edema: No Peripheral Pulses WNL: Yes Neurological: Yes: Alert, Oriented Psychiatric: Yes: Alert, Oriented Labs: CBC, BMP 02/05/18 08:00 02/05/18 08:00 Problem List - Problems (1) Diarrhea Assessment/Plan: -Stool micro pending -GI consult -probiotics -simethicone Code(s): R19.7 - DIARRHEA, UNSPECIFIED (2) Anemia Assessment/Plan: chronic -check stool OB, B12, Thyroid and iron profile -monitor trend Code(s): D64.9 - ANEMIA, UNSPECIFIED (3) Abdominal pain Assessment/Plan: -Seen by GI -CT abd Pelvis -Surgical eval pending CT ABD/PEL Code(s): R10.9 - UNSPECIFIED ABDOMINAL PAIN Assessment/Plan see problem list Physical therapy DVT prophylaxis
--- NOTE | 2018-02-06 12:37 | CONSULT ---
Consult Consult Specialty:: endocrine Referred by:: dr.rabadi glasgow Reason for Consultation:: diabetes mellitus - History of Present Illness Chief Complaint: weakness nausea History of Present Illness: 72 yo F, h/o MS w/ paraparesis, RLS, HTN, CVA, CRI, OA, cervical stenosis, UTI, migraines, seizures, anxiety, ambulates w/ walker, recent dx of CML, BIB [employer]ENT with multiple complaints including generalized body aches x several days per pt. Also c/o ?dysuria w/ vague lower abd pain, no hematuria, flank pain, f/c. 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 Cardio/Vascular: Yes: HTN Pulmonary: Yes: Asthma, COPD Gastrointestinal: Yes: GERD (using walker at home ) Renal/: Yes: Renal Inusuff ...: No Psych: Yes: Depression Musculoskeletal: Yes: Osteoarthritis, Other (DDD) Rheumatology: Yes: Rheumatoid Arthritis Endocrine: Yes: Diabetes Mellitus Additional Medical History: as in HPI, morbidly obese - Past Surgical History Past Surgical History: Yes: Cholecystectomy, Hysterectomy (TIMBO/BSO), Joint Replacement (Right THR, Left TKR) Additional Surgical History: BTL - Alcohol/Substance Use Hx Alcohol Use: Yes (rum and coke on the weekends) History of Substance Use: reports: Marijuana (in past) - Smoking History Smoking history: Former smoker Have you smoked in the past 12 months: No Aproximately how many cigarettes per day: 0 If you are a former smoker, when did you quit?: many years ago - Social History Usual Living Arrangement: With Significant Other ADL: Independent 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 Travel: No Home Medications - Allergies Allergies/Adverse Reactions: Allergies Allergy/AdvReac Type Severity Reaction Status Date / Time Sulfa (Sulfonamide Allergy Severe Hives Verified 02/04/18 10:36 Antibiotics) - Home Medications Home Medications: Ambulatory Orders Amlodipine Besylate [Norvasc -] 2.5 mg PO DAILY 09/03/15 Ferrous Sulfate [Feosol] 325 mg PO DAILY 09/03/15 Sennosides [Senna] 8.6 mg PO DAILY PRN 09/03/15 Aspirin Coated [Ecotrin -] 81 mg PO DAILY #30 tablet.ec 09/10/15 Docusate Sodium [Colace -] 300 mg PO HS #30 capsule 09/10/15 Furosemide [Lasix -] 20 mg PO DAILY #30 tablet 09/10/15 Losartan Potassium [Cozaar -] 50 mg PO DAILY #30 tablet 09/10/15 Magnesium Oxide 400 mg PO BID #7 tablet 09/10/15 Gabapentin [Neurontin -] 400 mg PO Q8H #90 capsule 10/01/17 clonazePAM [KlonoPIN -] 0.5 mg PO BID 11/06/17 Acetaminophen [Tylenol .Regular Strength -] 650 mg PO Q4H PRN tablet 11/20/17 Allopurinol [Zyloprim -] 300 mg PO DAILY #30 tablet 11/20/17 Imatinib Mesylate [Gleevec (Nf) -] 400 mg PO DAILY #30 tablet 11/20/17 Levothyroxine [Synthroid -] 25 mcg PO DAILY@0700 #30 tablet 11/20/17 Nystatin Powder [Nystop Powder -] 1 applic TP DAILY #1 applic 11/20/17 Polyethylene Glycol 3350 [Miralax 119 gm Btl -] 17 gm PO DAILY #1 bottle Pramipexole Dihydrochloride [Mirapex -] 0.5 mg PO TID tablet 11/20/17 Triamcinolone 0.025% Ointment [Aristocort 0.025% Ointment -] 1 applic TP DAILY # 45 g 11/20/17 levETIRAcetam [Keppra -] 1,000 mg PO BID #120 tablet 11/20/17 Ergocalciferol [Vitamin D2] 50,000 unit PO Q7D #4 capsule 01/17/18 Oxycodone HCl/Acetaminophen [Percocet 10-325 mg Tablet] 1 each PO TID #90 tablet MDD 3 01/17/18 Amox-Tr/K Cl [Augmentin - 875Mg Tablet] 1 tab PO BID #14 tablet 01/31/18 Family Disease History - Family Disease History Family Disease History: CA: Mother (, cancer, unclear type), Other: Father ( - cancer, unclear type), Brother (1, pain - arthritis), Sister (four sisters - little contact), Son (one living healthy), Daughter (one living healthy) Review of Systems - Review of Systems Constitutional: reports: Lethargy, Weakness Eyes: reports: No Symptoms HENT: reports: No Symptoms Neck: reports: No Symptoms Cardiovascular: reports: Shortness of Breath Respiratory: reports: Exercise Intolerance Gastrointestinal: reports: Bloating Genitourinary: reports: Burning, Frequency Musculoskeletal: reports: Back Pain, Extremity Pain, Joint Swelling, Muscle Weakness Neurological: reports: Numbness, Weakness Endocrine: reports: Increased Hunger Physical Exam Vital Signs: Vital Signs Temperature 98.8 F 02/06/18 09:00 Pulse Rate 52 L 02/06/18 09:00 Respiratory Rate 20 02/06/18 09:00 Blood Pressure 162/86 02/06/18 09:00 O2 Sat by Pulse Oximetry (%) 96 02/06/18 09:00 Constitutional: Yes: Anxious Eyes: Yes: EOM Intact HENT: Yes: Normocephalic Cardiovascular: Yes: Tachycardia, Murmur Respiratory: Yes: CTA Bilaterally Gastrointestinal: Yes: Abdomen, Obese ...Rectal Exam: Yes: Deferred Renal/: Yes: WNL Musculoskeletal: Yes: Joint Stiffness, Joint Swelling, Muscle Pain, Muscle Weakness Neurological: Yes: Alert, Oriented, Numbness, Weakness Labs: CBC, BMP 02/05/18 08:00 02/05/18 08:00 Problem List - Problems (1) Abdominal pain Code(s): R10.9 - UNSPECIFIED ABDOMINAL PAIN (2) Anorexia Code(s): R63.0 - ANOREXIA (3) Diarrhea Code(s): R19.7 - DIARRHEA, UNSPECIFIED (4) FTT (failure to thrive) in adult Code(s): R62.7 - ADULT FAILURE TO THRIVE (5) Heart murmur Code(s): R01.1 - CARDIAC MURMUR, UNSPECIFIED (6) Abnormal antibody titer Code(s): R76.8 - OTHER SPECIFIED ABNORMAL IMMUNOLOGICAL FINDINGS IN SERUM (7) Acute kidney failure Code(s): N17.9 - ACUTE KIDNEY FAILURE, UNSPECIFIED Assessment/Plan Current Active Problems Abdominal pain (Acute) Anorexia (Acute) Diarrhea (Acute) FTT (failure to thrive) in adult (Acute) Heart murmur (Acute) diabetes mellitus hyperglycemia diabetic neuropathy Laboratory Results - last 24 hr 02/05/18 02/05/18 15:00 21:30 Stool Occult Blood Negative Negative Laboratory Tests 02/05/18 02/05/18 08:00 08:00 WBC 9.0 RBC 3.74 Hgb 10.0 L Hct 31.0 L MCV 83.0 MCH 26.8 MCHC 32.2 RDW 17.0 H Plt Count 406 Sodium 140 Potassium 4.1 Chloride 107 Carbon Dioxide 26 Anion Gap 7 L BUN 6 L Creatinine 0.8 Creat Clearance w eGFR > 60 Random Glucose 72 L Calcium 8.2 L TSH 1.03 plan: bgm bid repeat hba1c continue sythroid 25mcg
[2018-02-06] MEDS ORDERED: levETIRAcetam 250 MG TABLET (FP) PO ONE (22:45)
[2018-02-06] MEDS: SENNOSIDES 8.6MG TABLET (FP) PO SCH (22:53)
[2018-02-06] MEDS: DOCUSATE SODIUM 100 MG CAPSULE (FP) PO SCH (23:32)
[2018-02-07] MEDS: oxyCODONE HCL 5 MG TABLET PO PRN ×3 (05:57→18:21)
[2018-02-07] MEDS: GABAPENTIN 400 MG CAPSULE (FP) PO SCH ×3 (05:59→21:01)
[2018-02-07] MEDS: ACETAMINOPHEN 325 MG TABLET (FP) PO PRN ×3 (05:59→18:22)
[2018-02-07] MEDS: PRAMIPEXOLE DIHYDROCHLORIDE 0.5 MG TABLET PO SCH ×3 (05:59→21:07)
[2018-02-07] MEDS: LEVOTHYROXINE NA 25 MCG TABLET (FP) PO SCH (06:01)
[2018-02-07] MEDS: HEPARIN NA (PORCINE) 5,000 UNITS/ML 1ML VIAL SQ SCH ×3 (06:11→21:01)
[2018-02-07 08:30] LABS: BASO % 2.6 % (0-2.0); EOS % 2.5 % (0-4.5); HEMOGLOBIN 10.6 GM/dL (10.7-15.3); LYMPH % 26.3 % (8-40); MCH 26.5 pg (25.7-33.7); MCHC 32.1 g/dl (32.0-36.0); MEAN CELL VOLUME 82.5 fl (80-96); MEAN PLT VOLUME 8.2 fl (7.5-11.1); MONO % 9.3 % (3.8-10.2); NEUT % 59.3 % (42.8-82.8); PLATELET COUNT 435 K/MM3 (134-434); RDW 16.9 % (11.6-15.6); WHITE BLOOD COUNT 7.6 K/mm3 (4.0-10.0)
[2018-02-07 08:53] LABS: CHLORIDE 105 mmol/L (98-107); POTASSIUM 4.2 mmol/L (3.5-5.1); SODIUM 138 mmol/L (136-145)
[2018-02-07 09:42] LABS: ALBUMIN 3.2 g/dl (3.4-5.0); ALK PHOS 144 U/L (45-117); ANION GAP 7 MMOL/L (8-16); BILIRUBIN,TOTAL 0.3 mg/dL (0.2-1.0); BLOOD UREA NITROGEN 8 mg/dL (7-18); CALCIUM 8.5 mg/dL (8.5-10.1); CO2 26 mmol/L (21-32); CREATININE 0.8 mg/dL (0.55-1.02); GLUCOSE,RANDOM 92 mg/dL (74-106); SGOT/AST 24 U/L (15-37); SGPT/ALT 24 U/L (12-78); TOT PROT 6.6 g/dl (6.4-8.2)
[2018-02-07] MEDS: LOSARTAN POTASSIUM 50 MG TABLET (FP) PO SCH (10:51)
[2018-02-07] MEDS: ALLOPURINOL 300 MG TABLET (FP) PO SCH (10:51)
[2018-02-07] MEDS: LACTOBACILLUS ACIDOPHILUS 1 TABLET PO SCH ×2 (10:51→21:01)
[2018-02-07] MEDS: amLODIPine BESYLATE 2.5 MG TABLET (FP) PO SCH (10:51)
[2018-02-07] MEDS: ASPIRIN COATED 81 MG TABLET.EC PO SCH (10:51)
[2018-02-07] MEDS: levETIRAcetam 500 MG TABLET (FP) PO SCH ×2 (10:51→21:01)
--- NOTE | 2018-02-07 10:59 | PN ---
Progress Note, Physician Chief Complaint: Nausea Vomiting Diarrhea Abdominal pain History of Present Illness: NAD in bed Labs unremarkable Seen by GI CT abdomen pelvis: 1. S/P cholecystectomy with dilatation of the biliary tree and main pancreatic duct. No obvious obstruction is identified. MRCP follow-up recommended. 2. Fat containing ventral hernia within the anterior abdominal wall with possible incarceration of the herniated fat. 3. Compression fractures of the lower thoracic spine of uncertain chronicity. Clinical correlation and follow-up recommended. Please see above discussion. - Current Medication List Current Medications: Active Medications Acetaminophen (Tylenol -) 650 mg PO Q6H PRN PRN Reason: FEVER Last Admin: 02/07/18 05:59 Dose: 650 mg Allopurinol (Zyloprim -) 300 mg PO DAILY [facility] Last Admin: 02/07/18 10:51 Dose: 300 mg Amlodipine Besylate (Norvasc -) 2.5 mg PO DAILY [facility] Last Admin: 02/07/18 10:51 Dose: 2.5 mg Aspirin (Ecotrin -) 81 mg PO DAILY [facility] Last Admin: 02/07/18 10:51 Dose: 81 mg Clonazepam (Klonopin -) 0.5 mg PO Q12H PRN PRN Reason: ANXIETY Last Admin: 02/05/18 21:13 Dose: 0.5 mg Docusate Sodium (Colace -) 300 mg PO HS [facility] Last Admin: 02/06/18 23:32 Dose: Not Given Gabapentin (Neurontin -) 400 mg PO TID [facility] Last Admin: 02/07/18 05:59 Dose: 400 mg Heparin Sodium (Porcine) (Heparin -) 5,000 unit SQ TID [facility] Last Admin: 02/07/18 06:11 Dose: Not Given Lactobacillus Acidophilus (Bacid -) 1 tab PO BID [facility] Last Admin: 02/07/18 10:51 Dose: 1 tab Levetiracetam (Keppra -) 1,000 mg PO BID [facility] Last Admin: 02/07/18 10:51 Dose: 1,000 mg Levothyroxine Sodium (Synthroid -) 25 mcg PO DAILY@0700 [facility] Last Admin: 02/07/18 06:01 Dose: 25 mcg Losartan Potassium (Cozaar -) 50 mg PO DAILY [facility] Last Admin: 02/07/18 10:51 Dose: 50 mg Ondansetron HCl (Zofran Injection) 4 mg IVPB Q8H PRN PRN Reason: NAUSEA Oxycodone HCl (Roxicodone -) 10 mg PO Q6H PRN PRN Reason: PAIN LEVEL 7 - 10 Last Admin: 02/07/18 05:57 Dose: 10 mg Pramipexole Dihydrochloride (Mirapex -) 0.5 mg PO TID [facility] Last Admin: 02/07/18 05:59 Dose: 0.5 mg Senna (Senna -) 1 tab PO HS [facility] Last Admin: 02/06/18 22:53 Dose: 1 tab Simethicone (Mylicon Liquid -) 40 mg PO QID [facility] Last Admin: 02/06/18 23:27 Dose: 40 mg - Objective Vital Signs: Vital Signs Temperature 98.8 F 02/07/18 10:00 Pulse Rate 64 02/07/18 10:00 Respiratory Rate 20 02/07/18 10:00 Blood Pressure 149/85 02/07/18 10:00 O2 Sat by Pulse Oximetry (%) 96 02/07/18 04:00 Constitutional: Yes: Well Nourished, No Distress Cardiovascular: Yes: Regular Rate and Rhythm Respiratory: Yes: Regular Gastrointestinal: Yes: Normal Bowel Sounds, Soft, Abdomen, Obese, Tenderness ( diffuse) Musculoskeletal: Yes: Muscle Weakness Edema: No Neurological: Yes: Alert, Oriented Psychiatric: Yes: Alert, Oriented Labs: CBC, BMP 02/07/18 06:45 02/07/18 06:45 Problem List - Problems (1) Diarrhea Assessment/Plan: -CDiff EIA + for AG but - Toxin -CDiff PCR pending -GI consult -probiotics -simethicone Code(s): R19.7 - DIARRHEA, UNSPECIFIED (2) Anemia Assessment/Plan: chronic -check stool OB negative -B12, Thyroid profile negative -iron profile pending -monitor trend Code(s): D64.9 - ANEMIA, UNSPECIFIED (3) Abdominal pain Assessment/Plan: -Seen by GI -CT abd Pelvis: 1. S/P cholecystectomy with dilatation of the biliary tree and main pancreatic duct. No obvious obstruction is identified. MRCP follow-up recommended. 2. Fat containing ventral hernia within the anterior abdominal wall with possible incarceration of the herniated fat. 3. Compression fractures of the lower thoracic spine of uncertain chronicity. Clinical correlation and follow-up recommended. Please see above discussion. -Surgical eval Code(s): R10.9 - UNSPECIFIED ABDOMINAL PAIN Assessment/Plan see problem list Physical therapy DVT prophylaxis
--- NOTE | 2018-02-07 12:09 | CON.PSL ---
Psychology Consult Consult Specialty:: Clinical Psychology History Provided By: Patient Limitations to Obtaining History: No Limitations Current Medications: Active Medications Acetaminophen (Tylenol -) 650 mg PO Q6H PRN PRN Reason: FEVER Last Admin: 02/07/18 05:59 Dose: 650 mg Allopurinol (Zyloprim -) 300 mg PO DAILY [facility] Last Admin: 02/07/18 10:51 Dose: 300 mg Amlodipine Besylate (Norvasc -) 2.5 mg PO DAILY [facility] Last Admin: 02/07/18 10:51 Dose: 2.5 mg Aspirin (Ecotrin -) 81 mg PO DAILY [facility] Last Admin: 02/07/18 10:51 Dose: 81 mg Clonazepam (Klonopin -) 0.5 mg PO Q12H PRN PRN Reason: ANXIETY Last Admin: 02/05/18 21:13 Dose: 0.5 mg Docusate Sodium (Colace -) 300 mg PO HS [facility] Last Admin: 02/06/18 23:32 Dose: Not Given Gabapentin (Neurontin -) 400 mg PO TID [facility] Last Admin: 02/07/18 05:59 Dose: 400 mg Heparin Sodium (Porcine) (Heparin -) 5,000 unit SQ TID [facility] Last Admin: 02/07/18 06:11 Dose: Not Given Lactobacillus Acidophilus (Bacid -) 1 tab PO BID [facility] Last Admin: 02/07/18 10:51 Dose: 1 tab Levetiracetam (Keppra -) 1,000 mg PO BID [facility] Last Admin: 02/07/18 10:51 Dose: 1,000 mg Levothyroxine Sodium (Synthroid -) 25 mcg PO DAILY@0700 [facility] Last Admin: 02/07/18 06:01 Dose: 25 mcg Losartan Potassium (Cozaar -) 50 mg PO DAILY [facility] Last Admin: 02/07/18 10:51 Dose: 50 mg Ondansetron HCl (Zofran Injection) 4 mg IVPB Q8H PRN PRN Reason: NAUSEA Oxycodone HCl (Roxicodone -) 10 mg PO Q6H PRN PRN Reason: PAIN LEVEL 7 - 10 Last Admin: 02/07/18 05:57 Dose: 10 mg Pramipexole Dihydrochloride (Mirapex -) 0.5 mg PO TID [facility] Last Admin: 02/07/18 05:59 Dose: 0.5 mg Senna (Senna -) 1 tab PO HS [facility] Last Admin: 02/06/18 22:53 Dose: 1 tab Simethicone (Mylicon Liquid -) 40 mg PO QID [facility] Last Admin: 02/06/18 23:27 Dose: 40 mg Allergies: Allergies Allergy/AdvReac Type Severity Reaction Status Date / Time Sulfa (Sulfonamide Allergy Severe Hives Verified 02/04/18 10:36 Antibiotics) Does patient have pain?: Yes Pain Location Body Site: Pain throughout her body Pain Description: Non-Descriptive Hx Alcohol Use: No Hx Substance Use: No Hx Substance Use Treatment: No Current Medical Exam-Psy Orientation: Time, Person, Place Immediate Term Memory: 08/11 Expressive: Coherent, Other (At times she experienced some stuttering when enouciating words.) Receptive: Age Appropriate Comprehension of Spoken Words Hallucinations: Absent Thought Process: Intact Depression: Severe (Pt. is very depressed about her declining health. 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 Her sister was present and requested a business card from me. They look forward to my continued intervention. The plan is to provide cognitive behavior therapy for mood disorder, and hypnosis for pain. Supportive therapy will also be offered. Thank you for your kind referral.
[2018-02-07] MEDS: SIMETHICONE 40 MG/0.6 ML BOTTLE PO SCH ×4 (12:46→21:07)
[2018-02-07 12:53] VITALS: BMI 36.2
--- NOTE | 2018-02-07 13:49 | CON.CARD ---
Consult Consult Specialty:: cardiology Referred by:: Rj Reason for Consultation:: Generalized body aches including chest discomfort - History of Present Illness Chief Complaint: Diffuse body aches and generalized weakness History of Present Illness: The patient is a 73-year-old obese female with a history of hypertension, hyperlipidemia, stroke, fibromyalgia, spinal stenosis, anxiety, CML, multiple sclerosis, chronic kidney disease, seizure disorder, now admitted with generalized weakness and malaise with diffuse body aches. Patient found to be in urinary retention. She sitting comfortably at the bedside. She offers no specific complaints. 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 Cardio/Vascular: Yes: HTN Pulmonary: Yes: Asthma, COPD Gastrointestinal: Yes: GERD (using walker at home ) Renal/: Yes: Renal Inusuff ...: No Psych: Yes: Depression Musculoskeletal: Yes: Osteoarthritis, Other (DDD) Rheumatology: Yes: Rheumatoid Arthritis Endocrine: Yes: Diabetes Mellitus Additional Medical History: as in HPI, morbidly obese - Past Surgical History Past Surgical History: Yes: Cholecystectomy, Hysterectomy (TIMBO/BSO), Joint Replacement (Right THR, Left TKR) Additional Surgical History: BTL - Alcohol/Substance Use Hx Alcohol Use: No History of Substance Use: reports: Marijuana (in past) - Smoking History Smoking history: Former smoker Have you smoked in the past 12 months: No Aproximately how many cigarettes per day: 0 If you are a former smoker, when did you quit?: many years ago - Social History Usual Living Arrangement: With Significant Other ADL: Independent 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 Travel: No Home Medications - Allergies Allergies/Adverse Reactions: Allergies Allergy/AdvReac Type Severity Reaction Status Date / Time Sulfa (Sulfonamide Allergy Severe Hives Verified 02/04/18 10:36 Antibiotics) - Home Medications Home Medications: Ambulatory Orders Amlodipine Besylate [Norvasc -] 2.5 mg PO DAILY 09/03/15 Ferrous Sulfate [Feosol] 325 mg PO DAILY 09/03/15 Sennosides [Senna] 8.6 mg PO DAILY PRN 09/03/15 Aspirin Coated [Ecotrin -] 81 mg PO DAILY #30 tablet.ec 09/10/15 Docusate Sodium [Colace -] 300 mg PO HS #30 capsule 09/10/15 Furosemide [Lasix -] 20 mg PO DAILY #30 tablet 09/10/15 Losartan Potassium [Cozaar -] 50 mg PO DAILY #30 tablet 09/10/15 Magnesium Oxide 400 mg PO BID #7 tablet 09/10/15 Gabapentin [Neurontin -] 400 mg PO Q8H #90 capsule 10/01/17 clonazePAM [KlonoPIN -] 0.5 mg PO BID 11/06/17 Acetaminophen [Tylenol .Regular Strength -] 650 mg PO Q4H PRN tablet 11/20/17 Allopurinol [Zyloprim -] 300 mg PO DAILY #30 tablet 11/20/17 Imatinib Mesylate [Gleevec (Nf) -] 400 mg PO DAILY #30 tablet 11/20/17 Levothyroxine [Synthroid -] 25 mcg PO DAILY@0700 #30 tablet 11/20/17 Nystatin Powder [Nystop Powder -] 1 applic TP DAILY #1 applic 11/20/17 Polyethylene Glycol 3350 [Miralax 119 gm Btl -] 17 gm PO DAILY #1 bottle Pramipexole Dihydrochloride [Mirapex -] 0.5 mg PO TID tablet 11/20/17 Triamcinolone 0.025% Ointment [Aristocort 0.025% Ointment -] 1 applic TP DAILY # 45 g 11/20/17 levETIRAcetam [Keppra -] 1,000 mg PO BID #120 tablet 11/20/17 Ergocalciferol [Vitamin D2] 50,000 unit PO Q7D #4 capsule 01/17/18 Oxycodone HCl/Acetaminophen [Percocet 10-325 mg Tablet] 1 each PO TID #90 tablet MDD 3 01/17/18 Amox-Tr/K Cl [Augmentin - 875Mg Tablet] 1 tab PO BID #14 tablet 01/31/18 Family Disease History - Family Disease History Family Disease History: CA: Mother (, cancer, unclear type), Other: Father ( - cancer, unclear type), Brother (1, pain - arthritis), Sister (four sisters - little contact), Son (one living healthy), Daughter (one living healthy) Review of Systems - Review of Systems Constitutional: reports: Lethargy, Loss of Appetite, Malaise Eyes: reports: No Symptoms HENT: reports: No Symptoms Neck: reports: No Symptoms Cardiovascular: reports: No Symptoms Respiratory: reports: No Symptoms Gastrointestinal: reports: Diarrhea, Nausea Genitourinary: reports: No Symptoms Breasts: reports: No Symptoms Reported Musculoskeletal: reports: Muscle Pain, Muscle Weakness Integumentary: reports: No Symptoms Neurological: reports: Weakness Endocrine: reports: No Symptoms Hematology/Lymphatic: reports: No Symptoms Psychiatric: reports: No Symptoms Vital Signs: Vital Signs Temperature 98.8 F 02/07/18 10:00 Pulse Rate 64 02/07/18 10:00 Respiratory Rate 20 02/07/18 10:00 Blood Pressure 149/85 02/07/18 10:00 O2 Sat by Pulse Oximetry (%) 96 02/07/18 04:00 Constitutional: Yes: Obese Eyes: Yes: WNL, Conjunctiva Clear HENT: Yes: WNL, Atraumatic, Normocephalic Neck: Yes: WNL, Supple, Trachea Midline Respiratory: Yes: WNL, Regular, CTA Bilaterally Gastrointestinal: Yes: WNL, Normal Bowel Sounds, Soft Cardiovascular: Yes: WNL, Regular Rate and Rhythm PMI: Non-Displaced Heart Sounds: Yes: S1, S2 Murmur: Yes: Systolic Murmur, Grade 2 Musculoskeletal: Yes: Muscle Weakness Extremities: Yes: WNL Edema: No Peripheral Pulses WNL: Yes Peripheral Pulses: 2+ Left Carotid, 2+ Right Carotid, 2+ Left Femoral, 2+ Right Femoral, 2+ Left Popliteal, 2+ Right Popliteal, 2+ Left Doralis Pedis, 2+ Right Dorsalis Pedis Integumentary: Yes: WNL Neurological: Yes: Lethargy, Weakness Psychiatric: Yes: WNL, Alert, Oriented - Other Data Labs, Other Data: CBC, BMP 02/07/18 06:45 02/07/18 06:45 Assessment/Plan 73-year-old female with multiple medical problems, now presenting with generalized malaise, diffuse body aches and urinary retention. There is no evidence of ischemia nor acute coronary syndrome. No CHF. The patient is in sinus rhythm without acute ECG changes. No cardiac complaints. Denies chest pains and shortness of breath. There is no need for further cardiac workup at this point. There is no need for cardiac monitoring. No active cardiac issues. SD please do not hesitate to call us.N
[2018-02-07] MEDS ORDERED: PT OWN MED DRAWER 7, Y5N ONE ×3 (14:41→21:06)
--- NOTE | 2018-02-07 16:21 | CONSULT ---
Consult Consult Specialty:: General Surgery Referred by:: Alice MCKENZIE Reason for Consultation:: painful incarcerated hernia - History of Present Illness Chief Complaint: painful ventral hernia History of Present Illness: 72 yo female PMH h/o right hip replacement, left knee replacement, MS, OA, CVA, CKD-III, and chronic pain who initially presented to ED on 02/06 with constellation of symptoms (weakness, nausea, urinary discomfort, decreased appetite). Her initial labs notable for CML on Gleevec. Pt also reports head and neck pain. CT head negative for any acute processes and CT spine showed cervical spondylosis with spinal canal stenosis (known from before) and a fat containing supraumbilical hernia without associated obstruction. She was admitted to medicine service for further w/u and evaluation. We were asked to assess. 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 Cardio/Vascular: Yes: HTN Pulmonary: Yes: Asthma, COPD Gastrointestinal: Yes: GERD (using walker at home ) Renal/: Yes: Renal Inusuff ...: No Psych: Yes: Depression Musculoskeletal: Yes: Osteoarthritis, Other (DDD) Rheumatology: Yes: Rheumatoid Arthritis Endocrine: Yes: Diabetes Mellitus Additional Medical History: as in HPI, morbidly obese - Past Surgical History Past Surgical History: Yes: Cholecystectomy, Hysterectomy (TIMBO/BSO), Joint Replacement (Right THR, Left TKR) Additional Surgical History: BTL - Alcohol/Substance Use Hx Alcohol Use: No History of Substance Use: reports: Marijuana (in past) - Smoking History Smoking history: Former smoker Have you smoked in the past 12 months: No Aproximately how many cigarettes per day: 0 If you are a former smoker, when did you quit?: many years ago - Social History Usual Living Arrangement: With Significant Other ADL: Independent 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 : [facility] History of Recent Travel: No Home Medications - Allergies Allergies/Adverse Reactions: Allergies Allergy/AdvReac Type Severity Reaction Status Date / Time Sulfa (Sulfonamide Allergy Severe Hives Verified 02/04/18 10:36 Antibiotics) - Home Medications Home Medications: Ambulatory Orders Amlodipine Besylate [Norvasc -] 2.5 mg PO DAILY 09/03/15 Ferrous Sulfate [Feosol] 325 mg PO DAILY 09/03/15 Sennosides [Senna] 8.6 mg PO DAILY PRN 09/03/15 Aspirin Coated [Ecotrin -] 81 mg PO DAILY #30 tablet.ec 09/10/15 Docusate Sodium [Colace -] 300 mg PO HS #30 capsule 09/10/15 Furosemide [Lasix -] 20 mg PO DAILY #30 tablet 09/10/15 Losartan Potassium [Cozaar -] 50 mg PO DAILY #30 tablet 09/10/15 Magnesium Oxide 400 mg PO BID #7 tablet 09/10/15 Gabapentin [Neurontin -] 400 mg PO Q8H #90 capsule 10/01/17 clonazePAM [KlonoPIN -] 0.5 mg PO BID 11/06/17 Acetaminophen [Tylenol .Regular Strength -] 650 mg PO Q4H PRN tablet 11/20/17 Allopurinol [Zyloprim -] 300 mg PO DAILY #30 tablet 11/20/17 Imatinib Mesylate [Gleevec (Nf) -] 400 mg PO DAILY #30 tablet 11/20/17 Levothyroxine [Synthroid -] 25 mcg PO DAILY@0700 #30 tablet 11/20/17 Nystatin Powder [Nystop Powder -] 1 applic TP DAILY #1 applic 11/20/17 Polyethylene Glycol 3350 [Miralax 119 gm Btl -] 17 gm PO DAILY #1 bottle Pramipexole Dihydrochloride [Mirapex -] 0.5 mg PO TID tablet 11/20/17 Triamcinolone 0.025% Ointment [Aristocort 0.025% Ointment -] 1 applic TP DAILY # 45 g 11/20/17 levETIRAcetam [Keppra -] 1,000 mg PO BID #120 tablet 11/20/17 Ergocalciferol [Vitamin D2] 50,000 unit PO Q7D #4 capsule 01/17/18 Oxycodone HCl/Acetaminophen [Percocet 10-325 mg Tablet] 1 each PO TID #90 tablet MDD 3 01/17/18 Amox-Tr/K Cl [Augmentin - 875Mg Tablet] 1 tab PO BID #14 tablet 01/31/18 Family Disease History - Family Disease History Family Disease History: CA: Mother (, cancer, unclear type), Other: Father ( - cancer, unclear type), Brother (1, pain - arthritis), Sister (four sisters - little contact), Son (one living healthy), Daughter (one living healthy) Review of Systems - Review of Systems Constitutional: reports: Lethargy, Malaise. denies: Chills, Fever Eyes: denies: Blind Spots, Recent Change in Vision HENT: denies: Difficult Swallowing, Throat Pain Neck: denies: Decreased ROM, Tenderness Cardiovascular: denies: Chest Pain, Palpitations Respiratory: denies: Cough, SOB Gastrointestinal: reports: Abdominal Pain, Constipation, Diarrhea, Nausea Genitourinary: denies: Burning, Discharge, Dysuria Breasts: reports: No Symptoms Reported. denies: Pain Musculoskeletal: reports: Back Pain, Joint Pain Integumentary: denies: Bruising, Eczema, Lump, Pruritis Neurological: reports: Seizure. denies: Syncope, Tremors Endocrine: denies: Unexplained Weight Gain, Unexplained Weight Loss Hematology/Lymphatic: denies: Easily Bruised, Excessive Bleeding Psychiatric: reports: Anxiety, Depression Physical Exam Vital Signs: Vital Signs Temperature 98.5 F 02/07/18 15:00 Pulse Rate 66 02/07/18 15:00 Respiratory Rate 20 02/07/18 10:00 Blood Pressure 145/85 02/07/18 15:00 O2 Sat by Pulse Oximetry (%) 96 02/07/18 04:00 Vital Signs Period Temp Pulse Resp BP Sys/Teague Pulse Ox Last 24 Hr 98.1 F-98.8 F 58-66 17-20 145-170/68-85 96-97 Constitutional: Yes: Well Nourished, No Distress, Calm, Obese Eyes: Yes: Conjunctiva Clear, EOM Intact HENT: Yes: Atraumatic, Normocephalic Neck: Yes: Supple, Trachea Midline Cardiovascular: Yes: Regular Rate and Rhythm, S1, S2 Respiratory: Yes: Regular, CTA Bilaterally. No: Accessory Muscle Use, Cough Gastrointestinal: Yes: Normal Bowel Sounds, Soft, Abdomen, Obese (Large abdominal pannus), Tenderness (supraumbilical position, no skin chnages, negative rebound and buarding). No: Ascites, Distention, Tenderness, Epigastrium, Tenderness, Rebound (LAW), Vomiting ...Rectal Exam: Yes: Deferred Renal/: No: CVA Tenderness - Left, CVA Tenderness - Right Musculoskeletal: No: Muscle Pain, Muscle Weakness Extremities: No: Cool, Cyanosis Edema: Yes Edema: LLE: 1+, RLE: 1+ Integumentary: No: Incision, Jaundice Neurological: Yes: Alert, Oriented, Lethargy Psychiatric: Yes: Alert, Oriented, Suicidal Ideation (talked about drowning to in the [place]) Labs: CBC, BMP 02/07/18 06:45 02/07/18 06:45 Imaging - Results Cat Scan: Report Reviewed, Image Reviewed (fat conatraing ventral hernia no involvement of bowel) Problem List - Problems (1) Incarcerated ventral hernia Assessment/Plan: 72 yo morbidly obese female MMP with chronically incarcerated ventral hernia containing fat. Would consider elective operative repair if desired but would not recommend proceeding with surgery in the acute setting. Appreciate cardiology input. Limit heavy lifting activities <15lbs Adequate analgesia Recommending weight loss program f/u in clinic after discharge Thank you for the opportunity to participate in the care of this patient. 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 depressive- like episode Code(s): F06.32 - MOOD DISORD D/T PHYSIOL COND W MAJOR DEPRESSIVE-LIKE EPSD (4) Heart murmur Code(s): R01.1 - CARDIAC MURMUR, UNSPECIFIED (5) Acute kidney failure Code(s): N17.9 - ACUTE KIDNEY FAILURE, UNSPECIFIED (6) CML (chronic myelocytic leukemia) Code(s): C92.10 - CHRONIC MYELOID LEUK, BCR/ABL-POSITIVE, NOT ACHIEVE REMIS (7) COPD exacerbation Code(s): J44.1 - CHRONIC OBSTRUCTIVE PULMONARY DISEASE W (ACUTE) EXACERBATION (8) History of CVA (cerebrovascular accident) Code(s): Z86.73 - PRSNL HX OF TIA (TIA), AND CEREB INFRC W/O RESID DEFICITS (9) Multiple sclerosis Code(s): G35 - MULTIPLE SCLEROSIS (10) Obesity, Class III, BMI 40-49.9 (morbid obesity) Code(s): E66.01 - MORBID (SEVERE) OBESITY DUE TO EXCESS CALORIES (11) Osteoarthritis Code(s): M19.90 - UNSPECIFIED OSTEOARTHRITIS, UNSPECIFIED SITE Qualifiers: Osteoarthritis location: unspecified site
--- NOTE | 2018-02-07 18:17 | CON.PSY ---
Psychiatry Consult Chief Complaint: I dont need you doctor, I am ok, I am not crazy, I am happy wioth my Gabapentin. I dont have any bad thoughts. Symptoms: reports: Anxiety - Previous Psychiatric Treatment Outpatient: None Inpatient: None - Previous Substance Abuse Treatment Outpatient: None Inpatient: None - Reason for Previous Treatment Reason for Previous Treatment: Anxiety or Panic Disorder - Current Medications Current Medications: Active Medications Acetaminophen (Tylenol -) 650 mg PO Q6H PRN PRN Reason: FEVER Last Admin: 02/07/18 12:22 Dose: 650 mg Allopurinol (Zyloprim -) 300 mg PO DAILY [facility] Last Admin: 02/07/18 10:51 Dose: 300 mg Amlodipine Besylate (Norvasc -) 2.5 mg PO DAILY [facility] Last Admin: 02/07/18 10:51 Dose: 2.5 mg Aspirin (Ecotrin -) 81 mg PO DAILY [facility] Last Admin: 02/07/18 10:51 Dose: 81 mg Clonazepam (Klonopin -) 0.5 mg PO Q12H PRN PRN Reason: ANXIETY Last Admin: 02/05/18 21:13 Dose: 0.5 mg Docusate Sodium (Colace -) 300 mg PO HS [facility] Last Admin: 02/06/18 23:32 Dose: Not Given Gabapentin (Neurontin -) 400 mg PO TID [facility] Last Admin: 02/07/18 15:14 Dose: 400 mg Heparin Sodium (Porcine) (Heparin -) 5,000 unit SQ TID [facility] Last Admin: 02/07/18 15:13 Dose: 5,000 unit Lactobacillus Acidophilus (Bacid -) 1 tab PO BID [facility] Last Admin: 02/07/18 10:51 Dose: 1 tab Levetiracetam (Keppra -) 1,000 mg PO BID [facility] Last Admin: 02/07/18 10:51 Dose: 1,000 mg Levothyroxine Sodium (Synthroid -) 25 mcg PO DAILY@0700 [facility] Last Admin: 02/07/18 06:01 Dose: 25 mcg Losartan Potassium (Cozaar -) 50 mg PO DAILY [facility] Last Admin: 02/07/18 10:51 Dose: 50 mg Ondansetron HCl (Zofran Injection) 4 mg IVPB Q8H PRN PRN Reason: NAUSEA Oxycodone HCl (Roxicodone -) 10 mg PO Q6H PRN PRN Reason: PAIN LEVEL 7 - 10 Last Admin: 02/07/18 12:21 Dose: 10 mg Pramipexole Dihydrochloride (Mirapex -) 0.5 mg PO TID [facility] Last Admin: 02/07/18 15:13 Dose: 0.5 mg Senna (Senna -) 1 tab PO HS [facility] Last Admin: 02/06/18 22:53 Dose: 1 tab Simethicone (Mylicon Liquid -) 40 mg PO QID [facility] Last Admin: 02/07/18 15:13 Dose: 40 mg Vancomycin HCl (Vancomycin Oral Solution) 125 mg PO Q6HPO [facility] - Allergies Allergies: Allergies Allergy/AdvReac Type Severity Reaction Status Date / Time Sulfa (Sulfonamide Allergy Severe Hives Verified 02/04/18 10:36 Antibiotics) - Current Living Status Usual Living Arrangement: Alone - Current Mental Status Evaluation Appearance: Well Groomed Attitude: Cooperative - Affect Affect: Full Range Appropriateness: Appropriate to Content - Mood Mood: Anxious - Speech/Language Expressive: Coherent - Psychomotor Activity Psychomotor Activity: Normal - Thought Process Thought Process: Intact - Thought Content Hallucinations: Absent Delusions: Absent - Self Perception Self Perception: No Impairment - Cognition Attention: Alert Orientation: Time Memory, Immediate Recall: Intact Memory, Short Term: 2/3 Memory, Remote: Intact Memory, Remote with Promptin/3 - Concentration Serial Sevens Intact: No Simple Calculations Intact: Yes - Abstraction Proverb Interpretation: Intact Judgement: Intact - Insight Insight: Intact - Impulse Control Impulse Control: Good Control - Suicidal Ideation Suicidal Ideation: No Assessment/Plan 1) Continue with Klonapin. 2) No need for an antidepressant.
[2018-02-07] MEDS: VANCOMYCIN 250 MG/5 ML ORAL SOLUTION PO SCH (19:28)
[2018-02-07] MEDS: SENNOSIDES 8.6MG TABLET (FP) PO SCH (21:01)
[2018-02-07] MEDS: DOCUSATE SODIUM 100 MG CAPSULE (FP) PO SCH (21:01)
[2018-02-07] MEDS: clonazePAM 0.5 MG TABLET PO PRN (21:08)
[2018-02-08] MEDS: VANCOMYCIN 250 MG/5 ML ORAL SOLUTION PO SCH ×4 (00:53→17:26)
[2018-02-08] MEDS: oxyCODONE HCL 5 MG TABLET PO PRN ×3 (01:41→16:15)
[2018-02-08 06:06] LABS: SERUM IRON SATURATION 15 % (15-55); TOTAL IRON BINDING CAPACITY 231 ug/dL (250-450); UIBC 197 ug/dL (118-369)
[2018-02-08] MEDS ORDERED: PT OWN MED DRAWER 7, Y5N ONE ×2 (06:06→13:54)
[2018-02-08] MEDS: HEPARIN NA (PORCINE) 5,000 UNITS/ML 1ML VIAL SQ SCH ×2 (06:10→14:01)
[2018-02-08] MEDS: GABAPENTIN 400 MG CAPSULE (FP) PO SCH ×2 (06:10→14:01)
[2018-02-08] MEDS: PRAMIPEXOLE DIHYDROCHLORIDE 0.5 MG TABLET PO SCH ×2 (06:10→14:01)
[2018-02-08] MEDS: LEVOTHYROXINE NA 25 MCG TABLET (FP) PO SCH (06:10)
[2018-02-08] MEDS: ACETAMINOPHEN 325 MG TABLET (FP) PO PRN ×2 (10:00→16:16)
[2018-02-08] MEDS: ALLOPURINOL 300 MG TABLET (FP) PO SCH (10:03)
[2018-02-08] MEDS: levETIRAcetam 500 MG TABLET (FP) PO SCH (10:03)
[2018-02-08] MEDS: amLODIPine BESYLATE 2.5 MG TABLET (FP) PO SCH (10:03)
[2018-02-08] MEDS: LOSARTAN POTASSIUM 50 MG TABLET (FP) PO SCH (10:03)
[2018-02-08] MEDS: ASPIRIN COATED 81 MG TABLET.EC PO SCH (10:03)
[2018-02-08] MEDS: LACTOBACILLUS ACIDOPHILUS 1 TABLET PO SCH (10:03)
[2018-02-08] MEDS: SIMETHICONE 40 MG/0.6 ML BOTTLE PO SCH ×3 (10:15→17:26)
--- NOTE | 2018-02-08 12:56 | PN ---
Progress Note, Physician Chief Complaint: Nausea Vomiting Diarrhea Abdominal pain History of Present Illness: NAD in bed Labs unremarkable Seen by GI CT abdomen pelvis: 1. S/P cholecystectomy with dilatation of the biliary tree and main pancreatic duct. No obvious obstruction is identified. MRCP follow-up recommended. 2. Fat containing ventral hernia within the anterior abdominal wall with possible incarceration of the herniated fat. 3. Compression fractures of the lower thoracic spine of uncertain chronicity. Clinical correlation and follow-up recommended. Please see above discussion. - Current Medication List Current Medications: Active Medications Acetaminophen (Tylenol -) 650 mg PO Q6H PRN PRN Reason: FEVER Last Admin: 02/08/18 10:00 Dose: 650 mg Allopurinol (Zyloprim -) 300 mg PO DAILY [facility] Last Admin: 02/08/18 10:03 Dose: 300 mg Amlodipine Besylate (Norvasc -) 2.5 mg PO DAILY [facility] Last Admin: 02/08/18 10:03 Dose: 2.5 mg Aspirin (Ecotrin -) 81 mg PO DAILY [facility] Last Admin: 02/08/18 10:03 Dose: 81 mg Clonazepam (Klonopin -) 0.5 mg PO Q12H PRN PRN Reason: ANXIETY Last Admin: 02/07/18 21:08 Dose: 0.5 mg Docusate Sodium (Colace -) 300 mg PO HS [facility] Last Admin: 02/07/18 21:01 Dose: 300 mg Gabapentin (Neurontin -) 400 mg PO TID [facility] Last Admin: 02/08/18 06:10 Dose: 400 mg Heparin Sodium (Porcine) (Heparin -) 5,000 unit SQ TID [facility] Last Admin: 02/08/18 06:10 Dose: 5,000 unit Lactobacillus Acidophilus (Bacid -) 1 tab PO BID [facility] Last Admin: 02/08/18 10:03 Dose: 1 tab Levetiracetam (Keppra -) 1,000 mg PO BID [facility] Last Admin: 02/08/18 10:03 Dose: 1,000 mg Levothyroxine Sodium (Synthroid -) 25 mcg PO DAILY@0700 [facility] Last Admin: 02/08/18 06:10 Dose: 25 mcg Losartan Potassium (Cozaar -) 50 mg PO DAILY [facility] Last Admin: 02/08/18 10:03 Dose: 50 mg Ondansetron HCl (Zofran Injection) 4 mg IVPB Q8H PRN PRN Reason: NAUSEA Oxycodone HCl (Roxicodone -) 10 mg PO Q6H PRN PRN Reason: PAIN LEVEL 7 - 10 Last Admin: 02/08/18 09:59 Dose: 10 mg Pramipexole Dihydrochloride (Mirapex -) 0.5 mg PO TID [facility] Last Admin: 02/08/18 06:10 Dose: 0.5 mg Senna (Senna -) 1 tab PO HS [facility] Last Admin: 02/07/18 21:01 Dose: 1 tab Simethicone (Mylicon Liquid -) 40 mg PO QID [facility] Last Admin: 02/08/18 10:15 Dose: 40 mg Vancomycin HCl (Vancomycin Oral Solution) 125 mg PO Q6HPO [facility] Last Admin: 02/08/18 11:15 Dose: 125 mg - Objective Vital Signs: Vital Signs Temperature 98.9 F 02/08/18 08:04 Pulse Rate 64 02/08/18 08:04 Respiratory Rate 16 02/08/18 08:04 Blood Pressure 140/70 02/08/18 08:04 O2 Sat by Pulse Oximetry (%) 98 02/08/18 09:00 Constitutional: Yes: Well Nourished, No Distress, Anxious Cardiovascular: Yes: Regular Rate and Rhythm Respiratory: Yes: Regular Gastrointestinal: Yes: Normal Bowel Sounds, Soft, Abdomen, Obese Musculoskeletal: Yes: Muscle Weakness Edema: No Neurological: Yes: Alert, Oriented Psychiatric: Yes: Alert, Oriented Labs: CBC, BMP 02/07/18 06:45 02/07/18 06:45 Problem List - Problems (1) Diarrhea Assessment/Plan: -resolved -On Bacid -Vancocin 125 mg po Q6H for another 8 days Code(s): R19.7 - DIARRHEA, UNSPECIFIED (2) Anemia Assessment/Plan: chronic -check stool OB negative -B12, Thyroid profile negative -iron profile normal -monitor trend Code(s): D64.9 - ANEMIA, UNSPECIFIED (3) Abdominal pain Assessment/Plan: -Seen by GI -CT abd Pelvis: 1. S/P cholecystectomy with dilatation of the biliary tree and main pancreatic duct. No obvious obstruction is identified. MRCP follow-up recommended. 2. Fat containing ventral hernia within the anterior abdominal wall with possible incarceration of the herniated fat. 3. Compression fractures of the lower thoracic spine of uncertain chronicity. Clinical correlation and follow-up recommended. Please see above discussion. -Surgical eval -No Surgical intervention recommended at this time Code(s): R10.9 - UNSPECIFIED ABDOMINAL PAIN Qualifiers: Abdominal location: periumbilical Qualified Code(s): R10.33 - Periumbilical pain Assessment/Plan see problem list walked 35 feet with Physical therapy DVT prophylaxis
--- NOTE | 2018-02-08 13:21 | DS ---
Physical Examination Vital Signs: Vital Signs Temperature 98.9 F 02/08/18 08:04 Pulse Rate 64 02/08/18 08:04 Respiratory Rate 16 02/08/18 08:04 Blood Pressure 140/70 02/08/18 08:04 O2 Sat by Pulse Oximetry (%) 98 02/08/18 09:00 Findings/Remarks: 72 Y/O FEMALE WITH H/O CML, OLD CVA, FIBROMYALGIA, SPINAL STENOSISANXIETY, HTN, LIPIDEMIA,OBESITY HERE WITH SYMPTOMS OF POOR APPETITE, WEAKNESS, GENERALIZED PAIN AND URINARY RETENTION FOR 2 DAYS. PATIENT IS ON GLEEVAC FOR CML. 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 (Acute) Diarrhea (Acute) FTT (failure to thrive) in adult (Acute) Heart murmur (Acute) Incarcerated ventral hernia (Acute) Hospital Course: Microbiology 02/05/18 20:00 Stool Salmonella/Shigella Culture - Final NO GROWTH OF SALMONELLA OR SHIGELLA SPECIES OBTAINED 02/05/18 20:00 Stool Campylobacter Culture - Final NO GROWTH OF CAMPYLOBACTER SPECIES OBTAINED 02/05/18 20:00 Stool Yersinia Culture - Final NO GROWTH OF YERSINIA SPECIES OBTAINED 02/05/18 20:00 Stool Vibrio Culture - Final NO GROWTH OF VIBRIO SPECIES OBTAINED 02/05/18 20:00 Stool Escherichia coli 0157 Culture - Final NO GROWTH OF E COLI 0157 OBTAINED 02/06/18 16:08 Stool Clostridium difficile (PCR) - Preliminary 02/05/18 15:00 Stool Gram Stain - Final 02/05/18 21:30 Stool Clostridium difficile Antigen (KEON) - Final 02/05/18 21:30 Stool Clostridium difficile Toxin Assay - Final 02/04/18 11:01 Urine - Urine Roth Urine Culture - Final NO GROWTH OBTAINED Laboratory Tests 02/04/18 02/04/18 02/04/18 10:55 10:55 11:01 WBC 7.8 RBC 3.96 Hgb 10.5 L Hct 32.8 D MCV 82.8 MCH 26.5 MCHC 32.0 RDW 17.3 H Plt Count 402 D MPV 8.2 Absolute Neuts (auto) 5.1 Neutrophils % 65.2 Lymphocytes % 23.3 Monocytes % 8.7 Eosinophils % 1.1 Basophils % 1.7 Nucleated RBC % 0 Sodium 140 Potassium 4.3 Chloride 106 Carbon Dioxide 26 Anion Gap 8 BUN 6 L Creatinine 0.9 Creat Clearance w eGFR > 60 POC Glucometer Random Glucose 83 Hemoglobin A1c % Calcium 8.4 L Iron TIBC Iron Saturation Ferritin Total Bilirubin 0.3 AST 42 H ALT 29 Alkaline Phosphatase 148 H Creatine Kinase 95 Troponin I 0.02 Total Protein 7.3 Albumin 3.6 Lipase 128 Vitamin B12 TSH Urine Color Yellow Urine Appearance Clear Urine pH 6.0 Ur Specific [place] 1.014 Urine Protein 2+ H Urine Glucose (UA) Negative Urine Ketones Negative Urine Blood Negative Urine Nitrite Negative Urine Bilirubin Negative Urine Urobilinogen Negative Ur Leukocyte Esterase Negative Urine WBC (Auto) 1 Urine RBC (Auto) 1 Urine Yeast Rare Stool Occult Blood 02/05/18 02/05/18 02/05/18 08:00 08:00 15:00 WBC 9.0 RBC 3.74 Hgb 10.0 L Hct 31.0 L MCV 83.0 MCH 26.8 MCHC 32.2 RDW 17.0 H Plt Count 406 MPV 7.9 Absolute Neuts (auto) Neutrophils % Lymphocytes % Monocytes % Eosinophils % Basophils % Nucleated RBC % Sodium 140 Potassium 4.1 Chloride 107 Carbon Dioxide 26 Anion Gap 7 L BUN 6 L Creatinine 0.8 Creat Clearance w eGFR > 60 POC Glucometer Random Glucose 72 L Hemoglobin A1c % Calcium 8.2 L Iron TIBC Iron Saturation Ferritin Total Bilirubin 0.4 AST 33 ALT 29 Alkaline Phosphatase 138 H D Creatine Kinase Troponin I Total Protein 6.6 Albumin 3.3 L Lipase 101 Vitamin B12 TSH 1.03 Urine Color Urine Appearance Urine pH Ur Specific [place] Urine Protein Urine Glucose (UA) Urine Ketones Urine Blood Urine Nitrite Urine Bilirubin Urine Urobilinogen Ur Leukocyte Esterase Urine WBC (Auto) Urine RBC (Auto) Urine Yeast Stool Occult Blood Negative 02/07/18 02/07/18 02/07/18 06:08 06:45 06:45 WBC 7.6 RBC 4.00 Hgb 10.6 L Hct 33.0 MCV 82.5 MCH 26.5 MCHC 32.1 RDW 16.9 H Plt Count 435 H MPV 8.2 Absolute Neuts (auto) 4.5 Neutrophils % 59.3 Lymphocytes % 26.3 Monocytes % 9.3 Eosinophils % 2.5 D Basophils % 2.6 H Nucleated RBC % 0 Sodium 138 Potassium 4.2 Chloride 105 Carbon Dioxide 26 Anion Gap 7 L BUN 8 Creatinine 0.8 Creat Clearance w eGFR > 60 POC Glucometer 86 Random Glucose 92 Hemoglobin A1c % Calcium 8.5 Iron TIBC Iron Saturation Ferritin 91.4 Total Bilirubin 0.3 AST 24 ALT 24 Alkaline Phosphatase 144 H Creatine Kinase Troponin I Total Protein 6.6 Albumin 3.2 L Lipase Vitamin B12 966 H TSH Urine Color Urine Appearance Urine pH Ur Specific [place] Urine Protein Urine Glucose (UA) Urine Ketones Urine Blood Urine Nitrite Urine Bilirubin Urine Urobilinogen Ur Leukocyte Esterase Urine WBC (Auto) Urine RBC (Auto) Urine Yeast Stool Occult Blood 02/07/18 02/07/18 02/08/18 06:45 06:45 06:16 WBC RBC Hgb Hct MCV MCH MCHC RDW Plt Count MPV Absolute Neuts (auto) Neutrophils % Lymphocytes % Monocytes % Eosinophils % Basophils % Nucleated RBC % Sodium Potassium Chloride Carbon Dioxide Anion Gap BUN Creatinine Creat Clearance w eGFR POC Glucometer 97 Random Glucose Hemoglobin A1c % 4.7 L Calcium Iron 34 TIBC 231 L Iron Saturation 15 Ferritin Total Bilirubin AST ALT Alkaline Phosphatase Creatine Kinase Troponin I Total Protein Albumin Lipase Vitamin B12 TSH Urine Color Urine Appearance Urine pH Ur Specific [place] Urine Protein Urine Glucose (UA) Urine Ketones Urine Blood Urine Nitrite Urine Bilirubin Urine Urobilinogen Ur Leukocyte Esterase Urine WBC (Auto) Urine RBC (Auto) Urine Yeast Stool Occult Blood Condition: Stable - Instructions Diet, Activity, Other Instructions: Vancomycin po 125 mg every 6 hours for 8 days Referrals: Parrish Bains MD [Staff Physician] - Bran De Leon MD [Primary Care Provider] - Disposition: [facility]/HOME HEALTH CARE - Home Medications Comprehensive Discharge Medication List: Ambulatory Orders Amlodipine Besylate [Norvasc -] 2.5 mg PO DAILY 09/03/15 Ferrous Sulfate [Feosol] 325 mg PO DAILY 09/03/15 Sennosides [Senna] 8.6 mg PO DAILY PRN 09/03/15 Aspirin Coated [Ecotrin -] 81 mg PO DAILY #30 tablet.ec 09/10/15 Docusate Sodium [Colace -] 300 mg PO HS #30 capsule 09/10/15 Furosemide [Lasix -] 20 mg PO DAILY #30 tablet 09/10/15 Losartan Potassium [Cozaar -] 50 mg PO DAILY #30 tablet 09/10/15 Magnesium Oxide 400 mg PO BID #7 tablet 09/10/15 Gabapentin [Neurontin -] 400 mg PO Q8H #90 capsule 10/01/17 clonazePAM [KlonoPIN -] 0.5 mg PO BID 11/06/17 Acetaminophen [Tylenol .Regular Strength -] 650 mg PO Q4H PRN tablet 11/20/17 Allopurinol [Zyloprim -] 300 mg PO DAILY #30 tablet 11/20/17 Imatinib Mesylate [Gleevec (Nf) -] 400 mg PO DAILY #30 tablet 11/20/17 Levothyroxine [Synthroid -] 25 mcg PO DAILY@0700 #30 tablet 11/20/17 Nystatin Powder [Nystop Powder -] 1 applic TP DAILY #1 applic 11/20/17 Polyethylene Glycol 3350 [Miralax 119 gm Btl -] 17 gm PO DAILY #1 bottle Pramipexole Dihydrochloride [Mirapex -] 0.5 mg PO TID tablet 11/20/17 Triamcinolone 0.025% Ointment [Aristocort 0.025% Ointment -] 1 applic TP DAILY # 45 g 11/20/17 levETIRAcetam [Keppra -] 1,000 mg PO BID #120 tablet 11/20/17 Ergocalciferol [Vitamin D2] 50,000 unit PO Q7D #4 capsule 01/17/18 Oxycodone HCl/Acetaminophen [Percocet 10-325 mg Tablet] 1 each PO TID #90 tablet MDD 3 01/17/18 Amox-Tr/K Cl [Augmentin - 875Mg Tablet] 1 tab PO BID #14 tablet 01/31/18
--- NOTE | 2018-02-08 14:09 | PN ---
Progress Note (short form) - Note Progress Note: ID Consult dictated + C difficile ag/ diarrhea Hx CML on Gleevec Continue vancomycin 125mg po q6h x 10d Contact precautions
[2018-02-08] MEDS: clonazePAM 0.5 MG TABLET PO PRN (14:15)
--- NOTE | 2018-02-08 14:31 | CONS ---
DATE OF CONSULTATION: DATE OF DICTATION: 02/08/2018 HISTORY: A 72-year-old female evaluated for diarrhea. The patient was admitted to the hospital on February 06, 2018 with complaints of generalized body aches, lower abdominal pain, anorexia, nausea, and diarrhea. She was admitted to the hospital where her course was significant for loose bowel movements. CAT scan of the abdomen and pelvis showed a ventral hernia. Stool for Clostridium difficile was obtained and was positive for Clostridium difficile antigen. At the present time, she complains of diffuse abdominal discomfort. She has had no bowel movements today after being started on oral vancomycin. She denies any associated fever or chills. The patient apparently was treated with Augmentin starting on or around January 31, 2018. PAST MEDICAL HISTORY: Positive for multiple sclerosis, restless leg syndrome, CML on Gleevec, hypertension, chronic kidney disease, osteoarthritis, recurrent urinary tract infections, asthma, lung cancer, stroke, diabetes mellitus, spinal stenosis. PAST SURGICAL HISTORY: Status post hysterectomy and cholecystectomy. ALLERGIES: SULFA. MEDICATIONS: Include Gleevec, Synthroid, Keppra, Norvasc, Ecotrin, Lasix, Cozaar, Neurontin, Klonopin, Zyloprim. PAST SURGICAL HISTORY: Lives in the community. SOCIAL HISTORY: No active tobacco or alcohol use. SYSTEMS REVIEW: Neurologic: No loss of consciousness, seizure activity, or focal weakness. Cardiac: Negative chest pain or palpitations. Respiratory: Negative cough or sputum production. Gastrointestinal: As per HPI. LABORATORY DATA: White count 7.6. Stool cultures negative. Clostridium difficile antigen positive. PHYSICAL EXAMINATION: General: The patient is out of bed to chair. Morbidly obese. Vital Signs: Temperature 98.9, blood pressure 140/70, pulse 64 and regular, respirations 16 per minute. HEENT: Sclerae anicteric. Heart: Sounds S1, S2. Lungs: Clear. Abdomen: Obese, soft. Mild diffuse tenderness. Extremities: Positive for edema. IMPRESSION: 1. Positive Clostridium difficile. 2. 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 3. SULFA allergy. PLAN: Continue vancomycin 125 mg by mouth every 6 hours for 10 days for treatment of Clostridium difficile. Contact precautions. Handwashing technique reinforced with the patient. Thank you for the kind referral. MARGARITA NOBLE M.D. [id number]
[2018-02-08 15:03] VITALS: BP 138/72; PULSE 62; TEMP 98.7
== END 2018-02-08 18:30 | disposition home health service (06) | DRG 372 ==
LOC: JER 10:04 → JERBED 16:49 → J6S 21:10 → OBSVTOIN 02-06 12:23 → J6S 02-06 22:22
PROVIDERS: ADMIT Family Medicine; ATTEND Family Medicine
DX: A04.72 Enterocolitis due to Clostridium difficile, not specified as recurrent (principal); K43.6 Other and unspecified ventral hernia with obstruction, without gangrene; G82.20 Paraplegia, unspecified; C92.10 Chronic myeloid leukemia, BCR/ABL-positive, not having achieved remission; M48.54XA Collapsed vertebra, not elsewhere classified, thoracic region, initial encounter for fracture; Z86.73 Personal history of transient ischemic attack (TIA), and cerebral infarction without residual deficits; G43.909 Migraine, unspecified, not intractable, without status migrainosus; F41.9 Anxiety disorder, unspecified; G25.81 Restless legs syndrome; M48.02 Spinal stenosis, cervical region; R62.7 Adult failure to thrive; R63.0 Anorexia; M79.7 Fibromyalgia; R33.8 Other retention of urine; M06.9 Rheumatoid arthritis, unspecified; D64.9 Anemia, unspecified; E66.01 Morbid (severe) obesity due to excess calories; Z68.36 Body mass index [BMI] 36.0-36.9, adult; Z87.891 Personal history of nicotine dependence; E11.22 Type 2 diabetes mellitus with diabetic chronic kidney disease; R01.1 Cardiac murmur, unspecified; I12.9 Hypertensive chronic kidney disease with stage 1 through stage 4 chronic kidney disease, or unspecified chronic kidney disease; N18.9 Chronic kidney disease, unspecified; E11.40 Type 2 diabetes mellitus with diabetic neuropathy, unspecified; E11.65 Type 2 diabetes mellitus with hyperglycemia; F06.32 Mood disorder due to known physiological condition with major depressive-like episode; G40.909 Epilepsy, unspecified, not intractable, without status epilepticus; N18.3 Chronic kidney disease, stage 3 (moderate); J44.9 Chronic obstructive pulmonary disease, unspecified; Z85.118 Personal history of other malignant neoplasm of bronchus and lung
CPT/HCPCS: 36415; 71046-TC-FY; 74177-TC; 80053; 81003; 81015; 82272; 82550; 82607; 82728; 82962; 83036; 83540; 83550; 83690; 84443; 84484; 85025; 85027; 87045; 87046; 87086; 87177; 87205; 87209; 87324; 87449; 87493; 93005; 93010; 97116-GP; 97161-GP; 99285-25; G0378; J0131; J1644

== ENCOUNTER 2018-04-03 17:24 | Inpatient (IN) | payer OTHER ==
[2018-04-03] MEDS ORDERED: SODIUM CHLORIDE 0.9% 1000 ML INFUS.BAG IV ONE (18:46)
[2018-04-03] MEDS ORDERED: ACETAMINOPHEN 1000 MG/100 ML VIAL (NON FORMULARY) IVPB ONE (19:02)
[2018-04-03] MEDS ORDERED: ONDANSETRON 4 MG/2 ML VIAL IVPUSH ONE (19:02)
[2018-04-03] MEDS ORDERED: morphine CARPU-JECT 2 MG/1 ML DISP.SYRIN IVPUSH ONE (19:02)
--- NOTE | 2018-04-03 19:03 | PDOC ---
History of Present Illness - General History Source: Patient Exam Limitations: No Limitations - History of Present Illness Initial Comments: 04/03/18 19:41 The patient is a 73 year old female, with a significant past medical history of right hip replacement, left knee replacement, MS, OA, CVA, CKD-III, chronic pain , and CML (diagnosed in November 2017), who presents to the emergency department with a few days of chest pain, shortness of breath and nausea sent from the office of Dr. Toledo today. The patient states her chest pain is constant and exacerbated with inspiration. She states she feels the pain to her left chest with deep breaths. She reports having diffuse body pain and tenderness for months, and reports her chest pain feeling different than her chronic pain. Dr. Toledo reportedly sent the patient for admission to restart the patient on Gleevec which the patient has not had since being sent to a long-term. The patient is a poor historian and has no recollection of having been on Gleevac. The patient denies headache and dizziness. The patient denies fever, chills, vomit, diarrhea and constipation. The patient denies dysuria, frequency, urgency and hematuria. Allergies: Sulfa PCP - Dr. Gutierrez Hem/Onc: Dr. Toledo <Christine Gaxiola - Last Filed: 04/03/18 22:08> <Rosa Meier - Last Filed: 04/03/18 22:40> - General Chief Complaint: Revisit, Lab Variance Stated Complaint: ELEVATED WHITE BLOOD COUNT Time Seen by Provider: 04/03/18 18:41 Past History <Christine Gaxiola - Last Filed: 04/03/18 22:08> - Past Medical History Anemia: No Asthma: Yes Cancer: Yes (LUNG 2011; chronic myelocytic leukemia 2017) Cardiac Disorders: No CVA: Yes (TIA ) COPD: No CHF: No Dementia: No Diabetes: Yes () GI Disorders: Yes (ACID REFLUX,COLITIS,ULCERS) Disorders: Yes (HAD SURGERY FOR KIDNEY STONES) HTN: Yes Hypercholesterolemia: No Liver Disease: No Seizures: No Thyroid Disease: Yes (PARTIAL THYROIDECTOMY 08/02,BENIGN NODULES) - Surgical History Abdominal Surgery: No Appendectomy: Yes Cardiac Surgery: No Cholecystectomy: No Lung Surgery: Yes (2012 RIGHT lobectomy for lung cancer,NO CHEMO OR RT) Neurologic Surgery: No Orthopedic Surgery: Yes (rt hip replacement, knee replacement) - Immunization History Immunization Up to Date: Yes - Suicide/Smoking/Psychosocial Hx Smoking Status: No Smoking History: Unknown if ever smoked Have you smoked in the past 12 months: No Number of Cigarettes Smoked Daily: 0 If you are a former smoker, when did you quit?: many years ago Hx Alcohol Use: No Drug/Substance Use Hx: No Substance Use Type: None Hx Substance Use Treatment: No <Rosa Meier - Last Filed: 04/03/18 22:40> - Past Medical History Allergies/Adverse Reactions: Allergies Allergy/AdvReac Type Severity Reaction Status Date / Time Sulfa (Sulfonamide Allergy Severe Hives Verified 02/04/18 10:36 Antibiotics) Home Medications: Ambulatory Orders Amlodipine Besylate [Norvasc -] 2.5 mg PO DAILY 09/03/15 Sennosides [Senna] 8.6 mg PO DAILY PRN 09/03/15 Aspirin Coated [Ecotrin -] 81 mg PO DAILY #30 tablet.ec 09/10/15 Docusate Sodium [Colace -] 300 mg PO HS #30 capsule 09/10/15 Furosemide [Lasix -] 20 mg PO DAILY #30 tablet 09/10/15 Losartan Potassium [Cozaar -] 50 mg PO DAILY #30 tablet 09/10/15 clonazePAM [KlonoPIN -] 0.5 mg PO BID 11/06/17 Allopurinol [Zyloprim -] 300 mg PO DAILY #30 tablet 11/20/17 Imatinib Mesylate [Gleevec (Nf) -] 400 mg PO DAILY #30 tablet 11/20/17 Levothyroxine [Synthroid -] 25 mcg PO DAILY@0700 #30 tablet 11/20/17 Pramipexole Dihydrochloride [Mirapex -] 0.5 mg PO TID tablet 11/20/17 levETIRAcetam [Keppra -] 1,000 mg PO BID #120 tablet 11/20/17 Tizanidine HCl [Zanaflex] 4 mg PO TID PRN #90 tablet 02/15/18 Gabapentin [Neurontin -] 400 mg PO Q8H #90 capsule 03/13/18 Hydrocodone/Acetaminophen [[place] 10-325 Tablet] 1 each PO TID PRN #90 tablet MDD 3 10/03/18 Review of Systems - Review of Systems Able to Perform ROS?: Yes Comments:: 04/03/18 19:43 GENERAL/CONSTITUTIONAL: No fever or chills. No weakness. HEAD, EYES, EARS, NOSE AND THROAT: No change in vision. No ear pain or discharge. No sore throat. GASTROINTESTINAL: (+) nausea, No vomiting, diarrhea or constipation. GENITOURINARY: No dysuria, frequency, or change in urination. CARDIOVASCULAR: (+) pleuritic chest pain or shortness of breath. RESPIRATORY: No cough, wheezing, or hemoptysis. MUSCULOSKELETAL: No joint or muscle swelling or pain. No neck or back pain. SKIN: No rash NEUROLOGIC: No headache, vertigo, loss of consciousness, or change in strength/ sensation. ENDOCRINE: No increased thirst. No abnormal weight change. HEMATOLOGIC/LYMPHATIC: No anemia, easy bleeding, or history of blood clots. ALLERGIC/IMMUNOLOGIC: No hives or skin allergy. <Christine Gaxiola - Last Filed: 04/03/18 22:08> *Physical Exam - Vital Signs Last Vital Signs Temp Pulse Resp BP Pulse Ox 98.9 F 68 20 160/78 100 04/03/18 17:37 04/03/18 17:37 04/03/18 17:37 04/03/18 17:37 04/03/18 17:37 - Physical Exam Comments: 04/03/18 19:44 Constitutional: (+) tearful, poor historian. Awake, alert, oriented. No acute distress. Head: Normocephalic. Atraumatic Eyes: PERRL. EOMI. Conjunctivae are not pale. ENT: Mucous membranes are moist and intact. Posterior pharynx without exudates or erythema. Uvula midline. Neck: Supple. Full ROM. No lymphadenopathy. Cardiovascular: Regular rate. Regular rhythm. S1, S2 regular. Distal pulses are 2+ and symmetric. Pulmonary/Chest: No evidence of respiratory distress. Clear to auscultation bilaterally No wheezing, rales or rhonchi. Abdominal: Soft and non-distended. There is no tenderness. No rebound, guarding or rigidity. No organomegaly. No palpable masses. Good bowel sounds. Back: No CVA tenderness. Musculoskeletal: (+) diffuse body tenderness which is chronic. Bilateral lower extremities are edematous. No cyanosis. No clubbing. Full range of motion in all extremities. Radial/pedal pulses are intact and 2+ bilaterally Skin: Skin is warm and dry. No petechiae. No purpura. Neurological: Alert and oriented to person, place, and time. Cranial nerves II- XII are grossly intact. Normal speech. Strength is grossly symmetric. No sensory deficits. Psychiatric: Good eye contact. Normal interaction, affect and behavior. <Christine Gaxiola - Last Filed: 04/03/18 22:08> - Vital Signs Last Vital Signs Temp Pulse Resp BP Pulse Ox 98.9 F 68 20 160/78 100 04/03/18 17:37 04/03/18 17:37 04/03/18 17:37 04/03/18 17:37 04/03/18 17:37 <Rosa Meier - Last Filed: 04/03/18 22:40> Heart Score/ECG Review - ECG Intrepretation Comment:: 04/03/18 20:07 sinus at 72, nl axis, nl interval, t wave inversions V1-2, no acute st changes <Rosa Meier - Last Filed: 04/03/18 22:40> ED Treatment Course - LABORATORY CBC & Chemistry Diagram: 04/03/18 19:00 04/03/18 19:00 - RADIOLOGY Radiograph Interpretation: EXAM#: TYPE/EXAM: RESULT: [id number] CT/HEAD CT WITHOUT CONTRAST, Cranial CT without contrast Impression: No CT evidence of acute intracranial pathology. Moderate periventricular and subcortical chronic microvascular ischemic changes are noted. There has been no definite interval change in comparison to prior CT exam of 11/10/2017. Reported By: Andrés Aly MD 04/03/18 2147 EXAM#: TYPE/EXAM: RESULT: [id number] RAD/CHEST X-RAY PORTABLE* Chest: Some breath Since 02/07/2018 there is no significant change. Again is a large heart, unfolded aorta and prominent hilar markings. A new metallic foreign body projects over the right scapula. Correlation recommended. Reported By: Eyal Coley MD 04/03/181926 EXAM#: TYPE/EXAM: RESULT: [id number] CT/CHEST CTA Chest CT angiogram Clinical information: chest pain Impression: No definite CT evidence of pulmonary embolism. Evaluation of the lower lobe subsegmental branches is somewhat limited due to respiratory motion artifact. Overall there has been no definite interval change in comparison to a prior CT study of 11/08/2017 as noted above. Reported By: Andrés Aly MD 04/03/18 9303 - Medications Given in the ED: ED Medications Discontinued Medications Generic Name Dose Route Start Last Admin Trade Name Anjum PRN Reason Stop Dose Admin Acetaminophen 1,000 mg 04/03/18 19:02 04/03/18 19:25 Ofirmev Injection - IVPB 04/03/18 19:03 1,000 mg ONCE ONE Administration Morphine Sulfate 2 mg 04/03/18 19:02 04/03/18 19:25 Morphine Injection - IVPUSH 04/03/18 19:03 2 mg ONCE ONE Administration Ondansetron HCl 4 mg 04/03/18 19:02 04/03/18 19:25 Zofran Injection IVPUSH 04/03/18 19:03 4 mg ONCE ONE Administration Sodium Chloride 1,000 ml 04/03/18 18:46 04/03/18 19:25 Normal Saline - IV 04/03/18 18:47 1,000 ml ONCE ONE Administration <Christine Gaxiola - Last Filed: 04/03/18 22:08> - LABORATORY CBC & Chemistry Diagram: 04/03/18 19:00 04/03/18 19:00 - RADIOLOGY Radiology Studies Ordered: Category Date Time Status CHEST CTA [CT] Stat CT Scan 04/03/18 19:01 Ordered CHEST X-RAY PORTABLE* [RAD] Stat Radiology 04/03/18 18:46 Ordered DUPLEX VASCUL US-2LEGS [US] Stat Ultrasound 04/03/18 19:01 Ordered <Rosa Meier - Last Filed: 04/03/18 22:40> Medical Decision Making - Medical Decision Making 04/03/18 21:38 a/p: 73yo female presents for eval of cp and diffuse body pain -pt was sent in by Dr Toledo for restarting gleevac for her CML -pt has not been on her Gleevac for some time -pt tearful, anxious upon arrival. -everywhere touched on her body was painful -pt unsure when the last time she took gleevac -pt sent by Dr. Toledo for plts of 1.2 04/03/18 21:51 will send labs, ldh, uric acid will restart gleevac 04/03/18 21:51 pt with shaking and seizure like activity will give ativan 04/03/18 21:51 case discussed with her who states her panic attacks have been misinterpreted at seizure like activity in the past 04/03/18 21:52 called by ultrasound - LE duplex negative for dvt 04/03/18 21:53 ct head negative 04/03/18 22:[address] Toledo who was updated on the labs and imaging ct pe negative 04/03/18 22:14 microblog sent to [facility] covering Dr. De La Rosa who covers dr. gutierrez 04/03/18 22:39 case discussed with Chloé from [facility] who accepts pt to service <Rosa Meier - Last Filed: 04/03/18 22:40> *DC/Admit/Observation/Transfer - Attestations Scribe Attestion: 04/03/18 19:49 Documentation prepared by Christine Gaxiola, acting as director medical safety for Rosa Meier DO <Christine Gaxiola - Last Filed: 04/03/18 22:08> - Discharge Dispostion Decision to Admit order: Yes - Attestations Physician Attestion: 04/03/18 20:10 I, Dr. Rosa Meier DO, attest that this document has been prepared under my direction and personally reviewed by me in its entirety. I further attest, that it accurately reflects all work, treatment, procedures and medical decision -making performed by me. <Rosa Meier - Last Filed: 04/03/18 22:40> Diagnosis at time of Disposition: CML (chronic myelocytic leukemia), Anxiety about health, Chest pain - Discharge Dispostion Condition at time of disposition: Guarded - Referrals Referrals: Bran Gutierrez MD [Primary Care Provider] - - Patient Instructions - Post Discharge Activity
[2018-04-03] MEDS ORDERED: MORPHINE SULFATE 2 MG/ML VIAL ONE (19:13)
[2018-04-03] MEDS ORDERED: ONDANSETRON 4 MG/2 ML VIAL ONE (19:14)
[2018-04-03] MEDS ORDERED: ACETAMINOPHEN INJECTION 100 ML IVPB ONE (19:14)
[2018-04-03 19:35] LABS: BASO % 2.6 % (0-2.0); EOS % 3.2 % (0-4.5); HEMATOCRIT 37.6 % (32.4-45.2); HEMOGLOBIN 11.9 GM/dL (10.7-15.3); LYMPH % 19.6 % (8-40); MCH 25.5 pg (25.7-33.7); MCHC 31.8 g/dl (32.0-36.0); MEAN CELL VOLUME 80.3 fl (80-96); MEAN PLT VOLUME 8.1 fl (7.5-11.1); MONO % 5.5 % (3.8-10.2); NEUT % 69.1 % (42.8-82.8); RBC 4.68 M/mm3 (3.60-5.2); RDW 16.5 % (11.6-15.6); WHITE BLOOD COUNT 21.3 K/mm3 (4.0-10.0)
[2018-04-03 19:49] LABS: INR 1.09 (0.83-1.09); PROTHROMBIN TIME (PATIENT) 12.9 SEC (9.7-13.0)
[2018-04-03] MEDS ORDERED: LORazepam 20 MG/10 ML 10 ML MDV ONE (19:53)
[2018-04-03 20:14] LABS: PLATELET COUNT 1252 K/MM3 (134-434)
[2018-04-03 20:24] LABS: ALBUMIN 3.7 g/dl (3.4-5.0); ALK PHOS 144 U/L (45-117); ANION GAP 6 MMOL/L (8-16); BILIRUBIN,TOTAL 0.3 mg/dL (0.2-1); BLOOD UREA NITROGEN 10 mg/dL (7-18); CALCIUM 9.6 mg/dL (8.5-10.1); CHLORIDE 109 mmol/L (98-107); CO2 28 mmol/L (21-32); CREATININE 0.9 mg/dL (0.55-1.3); GLUCOSE,RANDOM 65 mg/dL (74-106); LDH 222 U/L (84-246); MAGNESIUM 1.9 mg/dL (1.8-2.4); POTASSIUM 4.9 mmol/L (3.5-5.1); SGOT/AST 16 U/L (15-37); SGPT/ALT 18 U/L (13-61); SODIUM 143 mmol/L (136-145); TOT PROT 7.4 g/dl (6.4-8.2); URIC ACID 5.4 mg/dL (2.6-7.2)
[2018-04-03] MEDS ORDERED: DEXTROSE 50%-WATER - 25 GM/50 ML VIAL IVPUSH ONE (20:45)
[2018-04-03] MEDS ORDERED: DEXTROSE 50%-WATER 25 GM/50 ML DISP.SYRIN ONE (20:47)
[2018-04-03 22:14] LABS: PLATELET ESTIMATE SIGNIFICANT INCREASE; TARGET CELLS FEW
[2018-04-03] MEDS ORDERED: HYDROXYUREA 500 MG CAPSULE PO ONE (22:16)
[2018-04-04] MEDS ORDERED: SENNOSIDES 8.6MG TABLET (FP) PO PRN (00:03)
[2018-04-04] MEDS ORDERED: TIZANIDINE HCL 4 MG TABLET PO PRN (00:03)
[2018-04-04] MEDS ORDERED: MELATONIN 5 MG TABLETS PO PRN (00:06)
--- NOTE | 2018-04-04 00:07 | HP ---
CHIEF COMPLAINT: chest pain, SOB, nausea PCP: Moises; Heme/onc: Francis HISTORY OF PRESENT ILLNESS: This is a 73 year old female with a past medical history of CML, CVA, MS, fibromyalgia presented to the ED at the urging of her oncologist to resume treatment for her CML (pt was lost to f/u when she went into a [facility]). Pt reports chest pain, SOB, nausea x a few days. She reports that her CP is worse with deep breathing. ER course was notable for: (1) WBC 21.3, Plt 1252 Recent Travel: pt denies PAST MEDICAL HISTORY: CML, MS, OA, Fibromyalgia, CVA, GERD PAST SURGICAL HISTORY: hysterectomy R THR L TKR appendectomy Social History: Smoking: pt denies Alcohol: pt denies Drugs: medical marijuana (vape) Family History: pt is unclear, states her parents never talked about their medical problems daughter with RA son alive and well Allergies Sulfa (Sulfonamide Antibiotics) Allergy (Severe, Verified 02/04/18 10:36) Hives peanuts,peas,tomatoes HOME MEDICATIONS: 3 Medication Instructions Recorded Amlodipine Besylate [Norvasc -] 2.5 mg PO DAILY 09/03/15 Sennosides [Senna] 8.6 mg PO DAILY PRN 09/03/15 Aspirin Coated [Ecotrin -] 81 mg PO DAILY #30 tablet.ec 09/10/15 Docusate Sodium [Colace -] 300 mg PO HS #30 capsule 09/10/15 Furosemide [Lasix -] 20 mg PO DAILY #30 tablet 09/10/15 Losartan Potassium [Cozaar -] 50 mg PO DAILY #30 tablet 09/10/15 clonazePAM [KlonoPIN -] 0.5 mg PO BID 11/06/17 Imatinib Mesylate [Gleevec (Nf) -] 400 mg PO DAILY #30 tablet 11/20/17 Levothyroxine [Synthroid -] 25 mcg PO DAILY@0700 #30 tablet 11/20/17 Pramipexole Dihydrochloride 0.5 mg PO TID tablet 11/20/17 [Mirapex -] levETIRAcetam [Keppra -] 1,000 mg PO BID #120 tablet 11/20/17 Tizanidine HCl [Zanaflex] 4 mg PO TID PRN #90 tablet 02/15/18 Gabapentin [Neurontin -] 400 mg PO Q8H #90 capsule 03/13/18 Hydrocodone/Acetaminophen [[place] 1 each PO TID PRN #90 tablet MDD 3 03/13/18 10-325 Tablet] Avonex 30mcg weekly on Mondays04/04/18 REVIEW OF SYSTEMS CONSTITUTIONAL: Absent: fever, chills, diaphoresis, generalized weakness, malaise, loss of appetite, weight change HEENT: Absent: rhinorrhea, nasal congestion, throat pain, throat swelling, difficulty swallowing, mouth swelling, ear pain, eye pain, visual changes CARDIOVASCULAR: Present: chest pain Absent: syncope, palpitations, irregular heart rate, lightheadedness, peripheral edema RESPIRATORY: Present: shortness of breath Absent: cough, dyspnea with exertion, orthopnea, wheezing, stridor, hemoptysis GASTROINTESTINAL: Present: nausea Absent: abdominal pain, abdominal distension, vomiting, diarrhea, constipation, melena, hematochezia GENITOURINARY: Absent: dysuria, frequency, urgency, hesitancy, hematuria, flank pain, genital pain MUSCULOSKELETAL: Absent: myalgia, arthralgia, joint swelling, back pain, neck pain SKIN: Absent: rash, itching, pallor HEMATOLOGIC/IMMUNOLOGIC: Absent: easy bleeding, easy bruising, lymphadenopathy, frequent infections ENDOCRINE: Absent: unexplained weight gain, unexplained weight loss, heat intolerance, cold intolerance NEUROLOGIC: Absent: headache, focal weakness or paresthesias, dizziness, unsteady gait, seizure, mental status changes, bladder or bowel incontinence PSYCHIATRIC: Absent: anxiety, depression, suicidal or homicidal ideation, hallucinations. PHYSICAL EXAMINATION Vital Signs - 24 hr 3 04/03/18 04/03/18 17:37 21:00 Temperature 98.9 F Pulse Rate 68 Pulse Rate [ 88 Left Radial] Respiratory 20 18 Rate Blood Pressure 160/78 Blood Pressure 146/78 [Right Arm] O2 Sat by Pulse 100 96 Oximetry (%) GENERAL: Awake, alert, and fully oriented, in no acute distress. HEAD: Normal with no signs of trauma. EYES: Pupils equal, round and reactive to light, extraocular movements intact, sclera anicteric, conjunctiva clear. No lid lag. EARS, NOSE, THROAT: Ears normal, nares patent, oropharynx clear without exudates. Moist mucous membranes. NECK: Normal range of motion, supple without lymphadenopathy, JVD, or masses. LUNGS: Breath sounds equal, clear to auscultation bilaterally. No wheezes, and no crackles. No accessory muscle use. HEART: Regular rate and rhythm, normal S1 and S2 without murmur, rub or gallop. ABDOMEN: Soft, nontender, not distended, normoactive bowel sounds, no guarding, no rebound, no masses. No hepatomegaly or splenomegaly. MUSCULOSKELETAL: Normal range of motion at all joints. No bony deformities or tenderness. No CVA tenderness. UPPER EXTREMITIES: 2+ pulses, warm, well-perfused. No cyanosis. No clubbing. No peripheral edema. LOWER EXTREMITIES: 2+ pulses, warm, well-perfused. No calf tenderness. peripheral edema 1+ B/L ankles NEUROLOGICAL: Cranial nerves II-XII intact. Normal speech. Normal gait. PSYCHIATRIC: Cooperative. Good eye contact. Appropriate mood and affect. SKIN: Warm, dry, normal turgor, no rashes or lesions noted, normal capillary refill. Laboratory Results - last 24 hr 3 04/03/18 04/03/18 04/03/18 19:00 19:00 19:11 WBC 21.3 H RBC 4.68 Hgb 11.9 Hct 37.6 MCV 80.3 MCH 25.5 L MCHC 31.8 L RDW 16.5 H Plt Count 1252 H D MPV 8.1 Absolute Neuts (auto) 14.7 H Neutrophils % 69.1 Neutrophils % (Manual) 75.0 Band Neutrophils % 2.0 Lymphocytes % 19.6 D Lymphocytes % (Manual) 13.0 D Monocytes % 5.5 Monocytes % (Manual) 1 L D Eosinophils % 3.2 Eosinophils % (Manual) 3.0 Basophils % 2.6 H Basophils % (Manual) 2.0 Myelocytes % (Man) 4 H D Nucleated RBC % 0 Metamyelocytes 0 Hypochromia 1+ Platelet Estimate Significant increase Platelet Comment Large platelets Target Cells Few PT with INR 12.90 INR 1.09 PTT (Actin FS) 35.0 Sodium 143 Potassium 4.9 Chloride 109 H Carbon Dioxide 28 Anion Gap 6 L BUN 10 Creatinine 0.9 Creat Clearance w eGFR > 60 Random Glucose 65 L Uric Acid 5.4 Calcium 9.6 Magnesium 1.9 Total Bilirubin 0.3 AST 16 ALT 18 Alkaline Phosphatase 144 H LD Total 222 Creatine Kinase 87 Troponin I < 0.02 Total Protein 7.4 Albumin 3.7 TSH 0.53 Blood Type O POSITIVE Antibody Screen Negative ECG normal sinus rhythm vent rate 72, QTC 453 nonspecific T wave abnormality Radiology Reports Duplex vasc US B/L legs Impression: No DVT is identified involving either leg. Please see above. Reported By: Andrés Aly MD 04/03/182212 CTA chest Impression: No definite CT evidence of pulmonary embolism. Evaluation of the lower lobe subsegmental branches is somewhat limited due to respiratory motion artifact. Overall there has been no definite interval change in comparison to a prior CT study of 11/08/2017 as noted above. Reported By: Andrés Aly MD 04/03/182204 CT head Impression: No CT evidence of acute intracranial pathology. Moderate periventricular and subcortical chronic microvascular ischemic changes are noted. There has been no definite interval change in comparison to prior CT exam of 11/10/2017. Reported By: Andrés Aly MD 04/03/180 Chest portable Since 02/07/2018 there is no significant change. Again is a large heart, unfolded aorta and prominent hilar markings. A new metallic foreign body projects over the right scapula. Correlation recommended. Reported By: Eyal Coley MD 04/03/181926 ASSESSMENT/PLAN: 73yF with PMH CML, MS, OA, Fibromyalgia, CVA, GERD presented to the ED with chest pain, nausea, SOB. Chest pain - CTA neg for PE - admit to tele - will r/o ACS, trop neg x 1, trend x 2 more, downgrade to Medical floor if no elevation CML - ED d/w Dr. Blanco who rec restarting home gleevec and starting hydrea 500mg BID, ordered - oncology consult appreciated OA/Fibromyalgia - cont home meds: gabapentin, tizanidine; home hydrocodone changed to formulary oxycodone GERD - home nexium changed to formulary protonix DVT PPX - heparin 5000u SC TID FEN - tolerating po fluids - BMP in am - regular diet as tolerated Dispo: Pt currently requires further inpatient management of her emergent condition. Visit type - Emergency Visit Emergency Visit: Yes ED Registration Date: 04/03/18 Care time: The patient presented to the Emergency Department on the above date and was hospitalized for further evaluation of their emergent condition. - New Patient This patient is new to me today: Yes Date on this admission: 04/04/18 - Critical Care Critical Care patient: No
[2018-04-04] MEDS ORDERED: GABAPENTIN 400 MG CAPSULE (FP) PO SCH (00:15)
[2018-04-04] MEDS ORDERED: GABAPENTIN 300 MG CAPSULE (FP) PO ONE (00:42)
[2018-04-04] MEDS ORDERED: TIZANIDINE HCL 4 MG TABLET PO ONE (00:42)
[2018-04-04] MEDS ORDERED: MELATONIN 5 MG TABLETS PO ONE (00:44)
[2018-04-04] MEDS ORDERED: IMATINIB MESYLATE 100 MG TABLET PO ONE (00:45)
[2018-04-04] MEDS ORDERED: oxyCODONE HCL 5 MG TABLET ONE ×2 (01:14→09:09)
[2018-04-04] MEDS: oxyCODONE HCL 5 MG TABLET PO PRN ×3 (01:18→18:37)
[2018-04-04] MEDS ORDERED: HEPARIN NA (PORCINE) 5,000 UNITS/ML 1ML VIAL ONE (06:39)
[2018-04-04] MEDS: PRAMIPEXOLE DIHYDROCHLORIDE 0.5 MG TABLET PO SCH ×3 (06:40→22:39)
[2018-04-04] MEDS: GABAPENTIN 300 MG CAPSULE (FP) PO SCH ×3 (06:40→22:19)
[2018-04-04] MEDS: HEPARIN NA (PORCINE) 5,000 UNITS/ML 1ML VIAL SQ SCH ×3 (06:40→22:19)
[2018-04-04 06:55] LABS: MCHC 31.4 g/dl (32.0-36.0)
[2018-04-04 06:58] LABS: BASO % 0.6 % (0-2.0); EOS % 3.3 % (0-4.5); HEMATOCRIT 34.3 % (32.4-45.2); HEMOGLOBIN 10.8 GM/dL (10.7-15.3); LYMPH % 19.5 % (8-40); MCH 25.4 pg (25.7-33.7); MEAN CELL VOLUME 80.9 fl (80-96); MONO % 6.3 % (3.8-10.2); NEUT % 70.3 % (42.8-82.8); RBC 4.23 M/mm3 (3.60-5.2); RDW 16.6 % (11.6-15.6); WHITE BLOOD COUNT 19.6 K/mm3 (4.0-10.0)
[2018-04-04 07:12] LABS: PLATELET COUNT 1125 K/MM3 (134-434)
[2018-04-04] MEDS: LEVOTHYROXINE NA 25 MCG TABLET (FP) PO SCH (07:14)
[2018-04-04 07:27] LABS: ANION GAP 7 MMOL/L (8-16); BLOOD UREA NITROGEN 12 mg/dL (7-18); CALCIUM 9.1 mg/dL (8.5-10.1); CHLORIDE 109 mmol/L (98-107); CO2 29 mmol/L (21-32); CREATININE 1.1 mg/dL (0.55-1.3); GLUCOSE,RANDOM 77 mg/dL (74-106); MAGNESIUM 2.1 mg/dL (1.8-2.4); PHOSPHOROUS 6.8 mg/dL (2.5-4.9); POTASSIUM 4.6 mmol/L (3.5-5.1); SODIUM 144 mmol/L (136-145)
[2018-04-04] MEDS ORDERED: LORazepam 2 MG/ML SDV VIAL ONE ×3 (08:12→19:07)
--- NOTE | 2018-04-04 08:25 | PDOC ---
*Physical Exam - Vital Signs Last Vital Signs Temp Pulse Resp BP Pulse Ox 98.9 F 88 18 146/78 96 04/03/18 17:37 04/03/18 21:00 04/03/18 21:00 04/03/18 21:00 04/03/18 21:00 ED Treatment Course - LABORATORY CBC & Chemistry Diagram: 04/04/18 06:30 04/04/18 06:30 - ADDITIONAL ORDERS Additional order review: Laboratory Results 04/03/18 04/03/18 04/03/18 19:11 19:11 19:00 PT with INR 12.90 INR 1.09 PTT (Actin FS) 35.0 Sodium 143 Potassium 4.9 Chloride 109 H Carbon Dioxide 28 Anion Gap 6 L BUN 10 Creatinine 0.9 Creat Clearance w eGFR > 60 Random Glucose 65 L Uric Acid 5.4 Calcium 9.6 Magnesium 1.9 Total Bilirubin 0.3 AST 16 ALT 18 Alkaline Phosphatase 144 H LD Total 222 Creatine Kinase 87 Troponin I < 0.02 Total Protein 7.4 Albumin 3.7 TSH 0.53 Blood Type O POSITIVE Antibody Screen Negative 04/03/18 19:00 RBC 4.68 MCV 80.3 MCHC 31.8 L RDW 16.5 H MPV 8.1 Neutrophils % 69.1 Lymphocytes % 19.6 D Monocytes % 5.5 Eosinophils % 3.2 Basophils % 2.6 H - Medications Given in the ED: ED Medications Discontinued Medications Generic Name Dose Route Start Last Admin Trade Name Saeq PRN Reason Stop Dose Admin Acetaminophen 1,000 mg 04/03/18 19:02 04/03/18 19:25 Ofirmev Injection - IVPB 04/03/18 19:03 1,000 mg ONCE ONE Administration Dextrose 25 gm 04/03/18 20:45 04/03/18 20:56 D50w (Vial) - IVPUSH 04/03/18 20:46 25 gm NOW ONE Administration Gabapentin 600 mg 04/04/18 00:15 04/04/18 01:22 Neurontin - PO Not Given Q8H [facility] Gabapentin 600 mg 04/04/18 00:42 04/04/18 01:10 Neurontin - PO 04/04/18 00:43 600 mg ONCE ONE Administration Hydroxyurea 500 mg 04/03/18 22:16 04/03/18 22:45 Hydrea - PO 10/24/18 22:17 500 mg ONCE ONE Administration Imatinib Mesylate 400 mg 04/04/18 00:45 04/04/18 01:10 Gleevec (Restricted To Oncology) - PO 04/04/18 00:46 400 mg ONCE ONE Administration Lorazepam 2 mg 04/03/18 19:52 04/03/18 19:56 Ativan Injection - IVPUSH 04/03/18 19:53 2 mg ONCE ONE Administration Melatonin 5 mg 04/04/18 00:44 04/04/18 01:10 Melatonin PO 04/04/18 00:45 5 mg ONCE ONE Administration Morphine Sulfate 2 mg 04/03/18 19:02 04/03/18 19:25 Morphine Injection - IVPUSH 04/03/18 19:03 2 mg ONCE ONE Administration Ondansetron HCl 4 mg 04/03/18 19:02 04/03/18 19:25 Zofran Injection IVPUSH 04/03/18 19:03 4 mg ONCE ONE Administration Sodium Chloride 1,000 ml 04/03/18 18:46 04/03/18 19:25 Normal Saline - IV 04/03/18 18:47 1,000 ml ONCE ONE Administration Tizanidine HCl 4 mg 04/04/18 00:42 04/04/18 01:10 Tizanidine Hcl PO 04/04/18 00:43 4 mg ONCE ONE Administration Medical Decision Making - Medical Decision Making Pt seen having shaking activity, RR in 30s, some incontinence. Pt was provided 2 mg IV ativan and shaking activity stopped. Considering sz vs pseudo-sz. Admitting team notified. 04/04/18 08:21 *DC/Admit/Observation/Transfer Diagnosis at time of Disposition: CML (chronic myelocytic leukemia), Anxiety about health, Chest pain - Discharge Dispostion Condition at time of disposition: Guarded - Referrals - Patient Instructions - Post Discharge Activity
[2018-04-04 09:49] LABS: ANISOCYTOSIS 1+; MACROCYTOSIS 0; OVALOCYTE 1+; PLATELET ESTIMATE INCREASED
[2018-04-04] MEDS ORDERED: PATIENT'S OWN MEDICATION (NON-FORMULARY) (Esomeprazole Magnesium [Nexium 24hr] 40 MG) PO SCH (10:00)
[2018-04-04] MEDS ORDERED: ASPIRIN COATED 81 MG TABLET.EC PO SCH (10:00)
[2018-04-04] MEDS ORDERED: IMATINIB MESYLATE 400 MG PO SCH (10:00)
[2018-04-04] MEDS ORDERED: clonazePAM 0.5 MG TABLET ONE (10:11)
[2018-04-04] MEDS: clonazePAM 0.5 MG TABLET PO SCH ×2 (10:12→22:19)
[2018-04-04] MEDS: LOSARTAN POTASSIUM 50 MG TABLET (FP) PO SCH (10:14)
[2018-04-04] MEDS: HYDROXYUREA 500 MG CAPSULE PO SCH ×2 (10:15→22:39)
[2018-04-04] MEDS: levETIRAcetam 500 MG TABLET (FP) PO SCH ×2 (10:15→22:18)
[2018-04-04] MEDS: FUROSEMIDE 20 MG TABLET (FP) PO SCH (10:15)
[2018-04-04] MEDS: PANTOPRAZOLE 40 MG TABLET (FP) PO SCH (10:16)
[2018-04-04] MEDS: amLODIPine BESYLATE 2.5 MG TABLET (FP) PO SCH (10:16)
--- NOTE | 2018-04-04 10:21 | HP ---
Admitting History and Physical - Past Medical History CLINICAL SUPPORT ASSOCIATE: Yes: 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 Cardiovascular: Yes: HTN Pulmonary: Yes: Asthma, COPD Gastrointestinal: Yes: GERD (using walker at home ) Renal/: Yes: Renal Inusuff Heme/Onc: Yes: Other (? CML) Psych: Yes: Depression Musculoskeletal: Yes: Osteoarthritis, Other (DDD) Rheumatology: Yes: Rheumatoid Arthritis Endocrine: Yes: Diabetes Mellitus - Past Surgical History Past Surgical History: Yes: Cholecystectomy, Hysterectomy (TIMBO/BSO), Joint Replacement (Right THR, Left TKR) - Smoking History Smoking history: Unknown if ever smoked Have you smoked in the past 12 months: No Aproximately how many cigarettes per day: 0 If you are a former smoker, when did you quit?: many years ago - Alcohol/Substance Use Hx Alcohol Use: No History of Substance Use: reports: Marijuana (in past) - Social History ADL: Independent 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 Travel: No Home Medications - Allergies Allergies/Adverse Reactions: Allergies Allergy/AdvReac Type Severity Reaction Status Date / Time Sulfa (Sulfonamide Allergy Severe Hives Verified 02/04/18 10:36 Antibiotics) - Home Medications Home Medications: Ambulatory Orders Amlodipine Besylate [Norvasc -] 2.5 mg PO DAILY 09/03/15 Sennosides [Senna] 8.6 mg PO DAILY PRN 09/03/15 Aspirin Coated [Ecotrin -] 81 mg PO DAILY #30 tablet.ec 09/10/15 Docusate Sodium [Colace -] 300 mg PO HS #30 capsule 09/10/15 Furosemide [Lasix -] 20 mg PO DAILY #30 tablet 09/10/15 Losartan Potassium [Cozaar -] 50 mg PO DAILY #30 tablet 09/10/15 clonazePAM [KlonoPIN -] 0.5 mg PO BID 11/06/17 Imatinib Mesylate [Gleevec (Nf) -] 400 mg PO DAILY #30 tablet 11/20/17 Levothyroxine [Synthroid -] 25 mcg PO DAILY@0700 #30 tablet 11/20/17 Pramipexole Dihydrochloride [Mirapex -] 0.5 mg PO TID tablet 11/20/17 levETIRAcetam [Keppra -] 1,000 mg PO BID #120 tablet 11/20/17 Tizanidine HCl [Zanaflex] 4 mg PO TID PRN #90 tablet 02/15/18 Gabapentin [Neurontin -] 400 mg PO Q8H #90 capsule 03/13/18 Hydrocodone/Acetaminophen [[place] 10-325 Tablet] 1 each PO TID PRN #90 tablet MDD 3 03/13/18 Esomeprazole Magnesium [Nexium 24Hr] 40 mg PO DAILY 04/04/18 Interferon Beta-1A [Avonex] 30 mcg IM WEEKLY 04/04/18 Family Disease History - Family Disease History Family Disease History: CA: Mother (, cancer, unclear type), Other: Father ( - cancer, unclear type), Brother (1, pain - arthritis), Sister (four sisters - little contact), Son (one living healthy), Daughter (one living healthy) Physical Examination Vital Signs: Vital Signs Temperature 98.8 F 04/04/18 09:31 Pulse Rate 77 04/04/18 09:31 Respiratory Rate 18 04/03/18 21:00 Blood Pressure 179/59 H 04/04/18 09:31 O2 Sat by Pulse Oximetry (%) 96 04/03/18 21:00 Labs: CBC, BMP 04/04/18 06:30 04/04/18 06:30
--- NOTE | 2018-04-04 12:10 | CON.PULM ---
Consult Consult Specialty:: PULMONARY Referred by:: Dr. Menchaca Reason for Consultation:: shortness of breath - History of Present Illness Chief Complaint: shortness of breath History of Present Illness: 73yo female with h/o CML, MS, fibromyalgia, h/o CVA who was sent from her oncologist office for shortness of breath and chest pain. She states her symptoms have been worsening over the past 2-3 days. No fevers, chills or sweats. Chest pain worse with deep inspiration. Found to have thrombocytosis with platelet count over 1200. CTA chest done which did not show evidence of PE. She is a former smoker but does not use any inhalers at home. No history of asthma or COPD. 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 Cardio/Vascular: Yes: HTN Pulmonary: Yes: Asthma, COPD Gastrointestinal: Yes: GERD (using walker at home ) Renal/: Yes: Renal Inusuff Psych: Yes: Depression Musculoskeletal: Yes: Osteoarthritis, Other (DDD) Rheumatology: Yes: Rheumatoid Arthritis Endocrine: Yes: Diabetes Mellitus Additional Medical History: as in HPI, morbidly obese - Past Surgical History Past Surgical History: Yes: Cholecystectomy, Hysterectomy (TIMBO/BSO), Joint Replacement (Right THR, Left TKR) - Alcohol/Substance Use Hx Alcohol Use: No History of Substance Use: reports: Marijuana (in past) - Smoking History Smoking history: Unknown if ever smoked Have you smoked in the past 12 months: No Aproximately how many cigarettes per day: 0 If you are a former smoker, when did you quit?: many years ago - Social History Usual Living Arrangement: Alone ADL: Independent 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 Travel: No Home Medications - Allergies Allergies/Adverse Reactions: Allergies Allergy/AdvReac Type Severity Reaction Status Date / Time Sulfa (Sulfonamide Allergy Severe Hives Verified 02/04/18 10:36 Antibiotics) - Home Medications Home Medications: Ambulatory Orders Amlodipine Besylate [Norvasc -] 2.5 mg PO DAILY 09/03/15 Sennosides [Senna] 8.6 mg PO DAILY PRN 09/03/15 Aspirin Coated [Ecotrin -] 81 mg PO DAILY #30 tablet.ec 09/10/15 Docusate Sodium [Colace -] 300 mg PO HS #30 capsule 09/10/15 Furosemide [Lasix -] 20 mg PO DAILY #30 tablet 09/10/15 Losartan Potassium [Cozaar -] 50 mg PO DAILY #30 tablet 09/10/15 clonazePAM [KlonoPIN -] 0.5 mg PO BID 11/06/17 Imatinib Mesylate [Gleevec (Nf) -] 400 mg PO DAILY #30 tablet 11/20/17 Levothyroxine [Synthroid -] 25 mcg PO DAILY@0700 #30 tablet 11/20/17 Pramipexole Dihydrochloride [Mirapex -] 0.5 mg PO TID tablet 11/20/17 levETIRAcetam [Keppra -] 1,000 mg PO BID #120 tablet 11/20/17 Tizanidine HCl [Zanaflex] 4 mg PO TID PRN #90 tablet 02/15/18 Gabapentin [Neurontin -] 400 mg PO Q8H #90 capsule 03/13/18 Hydrocodone/Acetaminophen [[place] 10-325 Tablet] 1 each PO TID PRN #90 tablet MDD 3 03/13/18 Esomeprazole Magnesium [Nexium 24Hr] 40 mg PO DAILY 04/04/18 Interferon Beta-1A [Avonex] 30 mcg IM WEEKLY 04/04/18 Family Disease History - Family Disease History Family Disease History: CA: Mother (, cancer, unclear type), Other: Father ( - cancer, unclear type), Brother (1, pain - arthritis), Sister (four sisters - little contact), Son (one living healthy), Daughter (one living healthy) Review of Systems - Review of Systems Constitutional: reports: Malaise, Weakness. denies: Chills, Fever Eyes: denies: Recent Change in Vision HENT: denies: Nasal Congestion, Throat Pain Neck: denies: Stiffness, Tenderness Cardiovascular: reports: Chest Pain, Shortness of Breath. denies: Edema, Palpitations Respiratory: reports: Cough, Wheezing. denies: Hemoptysis Gastrointestinal: denies: Abdominal Pain, Nausea, Vomiting Genitourinary: denies: Dysuria, Hematuria Endocrine: denies: Unexplained Weight Gain, Unexplained Weight Loss Physical Exam Vital Sings: Vital Signs Temperature 98.8 F 04/04/18 09:31 Pulse Rate 77 04/04/18 09:31 Respiratory Rate 18 04/03/18 21:00 Blood Pressure 179/59 H 04/04/18 09:31 O2 Sat by Pulse Oximetry (%) 96 04/03/18 21:00 Constitutional: Yes: Anxious, Mild Distress Eyes: Yes: Conjunctiva Clear, EOM Intact HENT: Yes: Atraumatic, Normocephalic Neck: Yes: Supple, Trachea Midline Cardiovascular: Yes: Regular Rate and Rhythm Respiratory: Yes: Diminished (decreased breath sounds at the bases) ...Clubbing: No Gastrointestinal: Yes: Normal Bowel Sounds, Soft. No: Tenderness Edema: No Neurological: Yes: Alert, Oriented Labs: CBC, BMP 04/04/18 06:30 04/04/18 06:30 Imaging - Results Chest X-ray: Report Reviewed, Image Reviewed Cat Scan: Report Reviewed, Image Reviewed (no infiltrates, no PE) Problem List - Problems (1) CML (chronic myelocytic leukemia) Code(s): C92.10 - CHRONIC MYELOID LEUK, BCR/ABL-POSITIVE, NOT ACHIEVE REMIS (2) Hypertension Code(s): I10 - ESSENTIAL (PRIMARY) HYPERTENSION (3) Thrombocytosis Code(s): D47.3 - ESSENTIAL (HEMORRHAGIC) THROMBOCYTHEMIA (4) Multiple sclerosis Code(s): G35 - MULTIPLE SCLEROSIS Assessment/Plan Shortness of breath r/o CHF r/o Pulmonary HTN PE ruled out CML Thrombocytosis 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 - echocardiogram - trial of lasix - monitor urine output, creatinine - o2 to keep Spo2 >90% - oncology eval for CML/thrombocytosis - inhaled bronchodilators - DVT prophylaxis Thank you for this consult Porfirio Milton MD
--- NOTE | 2018-04-04 12:18 | EKG ---
Test Reason : Blood Pressure : / mmHG Vent. Rate : 072 BPM Atrial Rate : 072 BPM P-R Int : 124 ms QRS Dur : 082 ms QT Int : 414 ms P-R-T Axes : 064 068 074 degrees QTc Int : 453 ms POOR DATA QUALITY, INTERPRETATION MAY BE ADVERSELY AFFECTED NORMAL SINUS RHYTHM NONSPECIFIC T WAVE ABNORMALITY ABNORMAL ECG WHEN COMPARED WITH ECG OF 04-FEB-2018 10:27, NO SIGNIFICANT CHANGE WAS FOUND Confirmed by DREW CHESTER MD ([id number]) on 04/04/2018 12:17:55 PM Referred By: Confirmed By:DREW CHESTER MD
--- NOTE | 2018-04-04 13:07 | PN ---
Progress Note, Physician Chief Complaint: patient seen and examined in ER she says she has difficulty breathing and she said she came in to hospital for treatment of her leukemia earlier in day she has shaking movements of her body got ativan , said she has had this before no on seizure medications - Current Medication List Current Medications: Active Medications Amlodipine Besylate (Norvasc -) 2.5 mg PO DAILY [facility] Last Admin: 04/04/18 10:16 Dose: 2.5 mg Aspirin (Ecotrin -) 81 mg PO DAILY [facility] Last Admin: 04/04/18 10:15 Dose: 81 mg Clonazepam (Klonopin -) 0.5 mg PO BID [facility] Last Admin: 04/04/18 10:12 Dose: 0.5 mg Docusate Sodium (Colace -) 300 mg PO HS [facility] Furosemide (Lasix -) 20 mg PO DAILY [facility] Last Admin: 04/04/18 10:15 Dose: 20 mg Gabapentin (Neurontin -) 600 mg PO TID [facility] Last Admin: 04/04/18 06:40 Dose: 600 mg Heparin Sodium (Porcine) (Heparin -) 5,000 unit SQ TID [facility] Last Admin: 04/04/18 06:40 Dose: 5,000 unit Hydroxyurea (Hydrea -) 500 mg PO Q12H [facility] Last Admin: 04/04/18 10:15 Dose: 500 mg Levetiracetam (Keppra -) 1,000 mg PO BID [facility] Last Admin: 04/04/18 10:15 Dose: 1,000 mg Levothyroxine Sodium (Synthroid -) 25 mcg PO DAILY@0700 [facility] Last Admin: 04/04/18 07:14 Dose: 25 mcg Losartan Potassium (Cozaar -) 50 mg PO DAILY [facility] Last Admin: 04/04/18 10:14 Dose: 50 mg Melatonin (Melatonin) 5 mg PO HS PRN PRN Reason: INSOMNIA Non-Formulary Medication (Imatinib Mesylate) 400 mg PO DAILY [facility] Oxycodone HCl (Roxicodone -) 10 mg PO Q6H PRN PRN Reason: PAIN LEVEL 6-10 Last Admin: 04/04/18 09:12 Dose: 10 mg Pantoprazole Sodium (Protonix -) 40 mg PO DAILY [facility] Last Admin: 04/04/18 10:16 Dose: 40 mg Pramipexole Dihydrochloride (Mirapex -) 0.5 mg PO TID [facility] Last Admin: 04/04/18 06:40 Dose: 0.5 mg Senna (Senna -) 1 tab PO DAILY PRN PRN Reason: CONSTIPATION Tizanidine HCl (Tizanidine Hcl) 4 mg PO TID PRN PRN Reason: MUSCLE SPASMS - Objective Vital Signs: Vital Signs Temperature 98.8 F 04/04/18 09:31 Pulse Rate 77 04/04/18 09:31 Respiratory Rate 18 04/03/18 21:00 Blood Pressure 179/59 H 04/04/18 09:31 O2 Sat by Pulse Oximetry (%) 96 04/03/18 21:00 Constitutional: Yes: Calm Cardiovascular: Yes: Regular Rate and Rhythm, S1, S2 Respiratory: Yes: Diminished Gastrointestinal: Yes: Normal Bowel Sounds, Soft, Abdomen, Obese Neurological: Yes: Alert, Oriented (to name) Labs: CBC, BMP 04/04/18 06:30 04/04/18 06:30 INR, PTT INR 1.09 (0.83-1.09) 04/03/18 19:11 Problem List - Problems (1) Chest pain Assessment/Plan: atypical chest pain telemetry CE 3 sets noted cardiology and pulm eval echo CTA ordered no PE doppler of legs done- no dvt Code(s): R07.9 - CHEST PAIN, UNSPECIFIED (2) CML (chronic myelocytic leukemia) Assessment/Plan: gleevac and hydroxyurea heme on board Code(s): C92.10 - CHRONIC MYELOID LEUK, BCR/ABL-POSITIVE, NOT ACHIEVE REMIS (3) Hypothyroid Assessment/Plan: tsh ok on synthroid Code(s): E03.9 - HYPOTHYROIDISM, UNSPECIFIED (4) Thrombocytosis Assessment/Plan: heme on board secondary to leukemia Code(s): D47.3 - ESSENTIAL (HEMORRHAGIC) THROMBOCYTHEMIA (5) Anxiety disorder Assessment/Plan: lorazepam Code(s): F41.9 - ANXIETY DISORDER, UNSPECIFIED Qualifiers: 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 Qualified Code(s): 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
[2018-04-04] MEDS ORDERED: ALBUTEROL SO4 2.5/IPRATROPIUM 0.5 INH SOL 3 ML VIAL.NEB. NEB PRN (13:13)
--- NOTE | 2018-04-04 13:13 | CONSULT ---
Consult Consult Specialty:: Heme/Onc Referred by:: Dr. Wood Reason for Consultation:: History of CML - History of Present Illness Chief Complaint: chest pain History of Present Illness: 73F with history of HTN, hypothyroid, CML, CVA, MS, fibromyalgia, presents to the ER at the direction of Dr. Toledo for chest pain and thrombocytosis. Patient was diagnosed with CML in november of this year. She was on Gleevac and when she was discharged from the hospital to long term she was lost to follow up. She also had stopped the gleevac and when she came into the doctors office (Dr. Toledo) she started to complain of chest pain. Labs were done which showed platelets > 1200 and she was sent to the ED. She had a CTA of the chest which did not show PE and cardiac work up negative so far. Head CT negative. Pt reports chest pain, SOB, nausea for the last few days. She reports that her CP is worse with deep breathing. Patient had pharesis in the past. Patient intubated in the past for seizures but unsure if patient really had an actual seizure vs panic. No further seizure like episodes. WBC 21.3 on presentation Patient states she did not follow up because she could not get appointment. 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 R THR. L TKR. 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 Travel: No Home Medications - Allergies Allergies/Adverse Reactions: Allergies Allergy/AdvReac Type Severity Reaction Status Date / Time Sulfa (Sulfonamide Allergy Severe Hives Verified 02/04/18 10:36 Antibiotics) - Home Medications Home Medications: Ambulatory Orders Amlodipine Besylate [Norvasc -] 2.5 mg PO DAILY 09/03/15 Sennosides [Senna] 8.6 mg PO DAILY PRN 09/03/15 Aspirin Coated [Ecotrin -] 81 mg PO DAILY #30 tablet.ec 09/10/15 Docusate Sodium [Colace -] 300 mg PO HS #30 capsule 09/10/15 Furosemide [Lasix -] 20 mg PO DAILY #30 tablet 09/10/15 Losartan Potassium [Cozaar -] 50 mg PO DAILY #30 tablet 09/10/15 clonazePAM [KlonoPIN -] 0.5 mg PO BID 11/06/17 Imatinib Mesylate [Gleevec (Nf) -] 400 mg PO DAILY #30 tablet 11/20/17 Levothyroxine [Synthroid -] 25 mcg PO DAILY@0700 #30 tablet 11/20/17 Pramipexole Dihydrochloride [Mirapex -] 0.5 mg PO TID tablet 11/20/17 levETIRAcetam [Keppra -] 1,000 mg PO BID #120 tablet 11/20/17 Tizanidine HCl [Zanaflex] 4 mg PO TID PRN #90 tablet 02/15/18 Gabapentin [Neurontin -] 400 mg PO Q8H #90 capsule 03/13/18 Hydrocodone/Acetaminophen [[place] 10-325 Tablet] 1 each PO TID PRN #90 tablet MDD 3 03/13/18 Esomeprazole Magnesium [Nexium 24Hr] 40 mg PO DAILY 04/04/18 Interferon Beta-1A [Avonex] 30 mcg IM WEEKLY 04/04/18 Family Disease History - Family Disease History Family Disease History: CA: Mother (, cancer, unclear type), Other: Father ( - cancer, unclear type), Brother (1, pain - arthritis), Sister (four sisters - little contact), Son (one living healthy), Daughter (one living healthy) Review of Systems - Review of Systems Constitutional: reports: Loss of Appetite, Weakness Eyes: reports: No Symptoms HENT: reports: No Symptoms Neck: reports: No Symptoms Cardiovascular: reports: Chest Pain, Shortness of Breath Respiratory: reports: Exercise Intolerance, SOB, SOB on Exertion Gastrointestinal: reports: No Symptoms Genitourinary: reports: No Symptoms Breasts: reports: No Symptoms Reported Musculoskeletal: reports: Back Pain, Extremity Pain, Joint Pain, Muscle Pain Endocrine: reports: No Symptoms Hematology/Lymphatic: reports: No Symptoms Physical Exam Vital Signs: Vital Signs Temperature 98.8 F 04/04/18 09:31 Pulse Rate 77 04/04/18 09:31 Respiratory Rate 18 04/03/18 21:00 Blood Pressure 179/59 H 04/04/18 09:31 O2 Sat by Pulse Oximetry (%) 96 04/03/18 21:00 Constitutional: Yes: Obese, Other (crying) Eyes: Yes: Conjunctiva Clear, EOM Intact HENT: Yes: Atraumatic Neck: Yes: Supple. No: Lymphadenopathy Cardiovascular: Yes: Regular Rate and Rhythm, S1, S2 Respiratory: Yes: Regular, CTA Bilaterally, Other (faint bibasilar crackles) Gastrointestinal: Yes: Normal Bowel Sounds, Soft, Abdomen, Obese. No: Tenderness Breast(s): Yes: Other (refused breast exam because of pain) Musculoskeletal: Yes: Other (refused groin exam to asses for lymphadenopathy due to pain) Psychiatric: Yes: Alert, Oriented Labs: CBC, BMP 04/04/18 06:30 04/04/18 06:30 Imaging - Results Chest X-ray: Report Reviewed, Image Reviewed Cat Scan: Report Reviewed, Image Reviewed (both Chest CTA and Head CT reviewed) Assessment/Plan 73F with extensive medical history including CML presents to the hospital at the direction of her oncologist/salesforce consultant due to chest pain and thrombocytopenia. Problem List: CML Chest pain Thrombocytosis HTN CHF Hypothyroidism PE ruled out already Plan: Admit to inpatient services will get cardiology consult for cardiac work up Continue Gleevac Continue Hyroxyurea Will send Cytogenetics, Flow cytometry, and FISH studies Will need daily CBC CMP and LDH Discussed with Dr. Toledo
--- NOTE | 2018-04-04 14:50 | CONSULT ---
Consult - text type - Consultation Consultation Note: Patient seen and examined 73 y/o patient with multiple comorbidities including anxiety, chronic pain,HTN, restless leg syndrome, recently diagnosed CML in 11/2017, who was lost to follow up and presented to the office from PMDS office with increasing thrombocytosis and intermittent chest pain. She had not been taking gleevec 400mg daily she denies any fever/chills/cough/bowel/bladder symptoms Last Vital Signs Temp Pulse Resp BP Pulse Ox 98.1 F 62 14 104/50 L 100 04/04/18 22:00 04/05/18 03:00 04/05/18 03:00 04/05/18 03:00 04/04/18 21:00 Cor: RSR, No murmurs, No gallops Lungs: Clear to P&A Abd: Soft, Normal bowel sounds, No organomegaly Ext:No significant edema Abnormal Lab Results 04/04/18 04/04/18 06:30 06:30 WBC 19.6 H MCH 25.4 L MCHC 31.4 L RDW 16.6 H Plt Count 1125 H Absolute Neuts (auto) 13.8 H Monocytes % (Manual) 13 H D Chloride 109 H Anion Gap 7 L Phosphorus 6.8 H Home Medication List Medication Instructions Recorded Confirmed Type Amlodipine Besylate [Norvasc -] 2.5 mg PO DAILY 09/03/15 04/03/18 History Sennosides [Senna] 8.6 mg PO DAILY PRN 09/03/15 04/03/18 History clonazePAM [KlonoPIN -] 0.5 mg PO BID 11/06/17 04/03/18 History Esomeprazole Magnesium [Nexium 40 mg PO DAILY 04/04/18 04/04/18 History 24Hr] Interferon Beta-1A [Avonex] 30 mcg IM WEEKLY 04/04/18 04/04/18 History Active Medications Generic Name Dose Route Start Last Admin Trade Name Freq PRN Reason Stop Dose Admin Albuterol/Ipratropium 1 amp 04/04/18 13:13 Duoneb - NEB Q6H PRN SHORTNESS OF BREATH Allopurinol 300 mg 04/05/18 10:00 Zyloprim - PO DAILY [facility] Amlodipine Besylate 2.5 mg 04/04/18 10:00 04/04/18 10:16 Norvasc - PO 2.5 mg DAILY [facility] Administration Aspirin 81 mg 04/04/18 22:00 04/04/18 22:19 Ecotrin - PO 81 mg BID [facility] Administration Chlorhexidine Gluconate 1 applic 04/04/18 22:00 04/04/18 22:20 Hibiclens For Decolonization - TP 1 applic HS [facility] Administration Clonazepam 0.5 mg 04/04/18 10:00 04/04/18 22:19 Klonopin - PO 0.5 mg BID [facility] Administration Docusate Sodium 300 mg 04/04/18 22:00 04/04/18 22:18 Colace - PO 300 mg HS [facility] Administration Furosemide 20 mg 04/04/18 10:00 04/04/18 10:15 Lasix - PO 20 mg DAILY [facility] Administration Gabapentin 600 mg 04/04/18 06:00 04/04/18 22:19 Neurontin - PO 600 mg TID [facility] Administration Heparin Sodium (Porcine) 5,000 unit 04/04/18 06:00 04/04/18 22:19 Heparin - SQ 5,000 unit TID [facility] Administration Hydroxyurea 500 mg 04/04/18 10:00 04/04/18 22:39 Hydrea - PO 500 mg Q12H [facility] Administration Sodium Chloride 1,000 mls @ 60 mls/hr 04/04/18 14:30 04/04/18 18:00 Normal Saline - IV 60 mls/hr ASDIR [facility] Administration Imatinib Mesylate 400 mg 04/05/18 10:00 Gleevec (Restricted To Oncology) - PO 04/09/18 10:01 DAILY [facility] Levetiracetam 1,000 mg 04/04/18 10:00 04/04/18 22:18 Keppra - PO 1,000 mg BID [facility] Administration Levothyroxine Sodium 25 mcg 04/04/18 07:00 04/04/18 07:14 Synthroid - PO 25 mcg DAILY@0700 [facility] Administration Losartan Potassium 50 mg 04/04/18 10:00 04/04/18 10:14 Cozaar - PO 50 mg DAILY [facility] Administration Melatonin 5 mg 04/04/18 00:06 Melatonin PO HS PRN INSOMNIA Mupirocin 1 applic 04/04/18 22:00 Bactroban Ointment (For Decolonization) - NS 04/09/18 21:59 BID [facility] Oxycodone HCl 10 mg 04/04/18 00:05 04/04/18 18:37 Roxicodone - PO 10 mg Q6H PRN Administration PAIN LEVEL 6-10 Pantoprazole Sodium 40 mg 04/04/18 10:00 04/04/18 10:16 Protonix - PO 40 mg DAILY [facility] Administration Pramipexole Dihydrochloride 0.5 mg 04/04/18 06:00 04/04/18 22:39 Mirapex - PO 0.5 mg TID [facility] Administration Senna 1 tab 04/04/18 00:03 Senna - PO DAILY PRN CONSTIPATION Tizanidine HCl 4 mg 04/04/18 00:03 04/04/18 14:36 Tizanidine Hcl PO 4 mg TID PRN Administration MUSCLE SPASMS A/P 73 y/o patient with multiple comorbidities including anxiety, chronic pain,HTN, restless leg syndrome, recently diagnosed CML in 11/2017, who was lost to follow up and presented to the office from [facility] office with increasing thrombocytosis and intermittent chest pain. She had not been taking gleevec 400mg daily CML thrombocytosis-- will resume gleevec . will add hydrea until platelet count controlled gentle hydration/allopurinol recheck flowcytometry/FISH/cytogenetics continue aspirin 81mg bid Intermittent chest pain--nl enzymes/EKG will request cardiology consult will follow
--- NOTE | 2018-04-04 16:28 | ECHO ---
Name: NICK COOK Exam:Adult Echocardiogram Study Date: 04/04/2018 01:54 PM Age: 73 yrs Reason For Study: EF Height: 62 in Weight: 178 lb BSA: 1.8 m2 MMode/2D Measurements & Calculations IVSd: 1.1 cm Ao root diam: 2.8 cm LVIDd: 3.3 cm LA dimension: 3.3 cm LVIDs: 2.3 cm LVPWd: 0.96 cm LVPWs: 1.6 cm EDV(Teich): 45.7 ml ESV(Teich): 17.9 ml LVOT diam: 2.0 cm Doppler Measurements & Calculations MV E max favio: 80.5 cm/sec Ao V2 max: 162.4 cm/sec MV A max favio: 101.2 cm/sec Ao max P.6 mmHg MV E/A: 0.80 MV dec time: 0.20 sec BROOKE(V,D): 2.6 cm2 LV V1 max P.1 mmHg PA V2 max: 114.0 cm/sec LV V1 max: 132.8 cm/sec PA max P.2 mmHg Med Peak E' Favio: 6.6 cm/sec Med E/e': 12.1 Lat Peak E' Favio: 12.2 cm/sec Lat E/e': 6.6 Procedure A complete two-dimensional transthoracic echocardiogram was performed (2D, M-mode, Doppler and color flow Doppler). Left Ventricle The left ventricular size, thickness and function are normal. The left ventricular ejection fraction is normal. Ejection Fraction = 60-65%. No regional wall motion abnormalities noted. Right Ventricle The right ventricle is normal in size and function. Atria Normal left and right atrial size and function. Mitral Valve There is no mitral regurgitation noted. Tricuspid Valve No tricuspid regurgitation. There was insufficient TR detected to calculate RV systolic pressure. Aortic Valve The aortic valve is trileaflet. No hemodynamically significant valvular aortic stenosis. No aortic regurgitation is present. Pulmonic Valve Trace pulmonic valvular regurgitation. Great Vessels The aortic root is normal size. Pericardium/Pleura There is no pericardial effusion. Interpretation Summary The left ventricular size, thickness and function are normal The right ventricle is normal in size and function. Trace pulmonic valvular regurgitation. MD Attila Jain 04/04/2018 04:28 PM
--- NOTE | 2018-04-04 16:43 | PN ---
Progress Note (short form) - Note Progress Note: Pt was seen briefly in the ER prior to transfer up to telemetry. No current complaints. no current chest pain or sob. Hemodynamically stable. Troponin did not significantly trend up. I was informed that pt follows routinely with Dr. Swift. I contacted him and he will see her tomorrow for full consultation.
[2018-04-04 17:38] VITALS: BMI 32.5
[2018-04-04] MEDS: SODIUM CHLORIDE 1,000 ML IV SCH (18:00)
[2018-04-04] MEDS ORDERED: LORazepam 2 MG/ML SDV VIAL IVPUSH ONE ×4 (18:54→19:13)
[2018-04-04] MEDS ORDERED: levETIRAcetam 500 MG/5 ML INJECTION VIAL IVPB ONE (19:02)
--- NOTE | 2018-04-04 19:07 | RAPID ---
Physical Examination Vital Signs: Vital Signs Temperature 98.6 F 04/04/18 17:31 Pulse Rate 75 04/04/18 17:31 Respiratory Rate 18 04/04/18 17:31 Blood Pressure 136/57 L 04/04/18 17:31 O2 Sat by Pulse Oximetry (%) 96 04/04/18 17:47 Findings/Remarks: Rapid response called overhead. Pt found in room seizing. 2 mg ativan given to pt. Pt continuing to seize, another 2 mg given, 2 mg given again and another 2 mg given. Anesthesia paged over head STAT in anticipation of intubation. Pt vomited however started to converse and regain mental status. 1,000 mg Keppra given to pt. CK and prolactin ordered. Pt be transfered to ICU. Labs: CBC, BMP 04/04/18 06:30 04/04/18 06:30
--- NOTE | 2018-04-04 21:50 | CONSULT ---
Consultation: REQUESTING PROVIDER: Dr. Menchaca CONSULT REQUEST: We have been asked to medically evaluate this patient for Seizures. HISTORY OF PRESENT ILLNESS: Patient is a 73 year old female with a PMHx of HTN, Hypothyroidism, CML, CVA, MS , Fibromyalgia, pseudo seizures who was sent to the ED by her oncologist, Dr. Toledo, for complaints of chest pain and lab work revealing thrombocystosis. Patient was recently diagnosed with CML (November 2017) and was started on Gleevac, however, when patient was discharged from the hospital and placed in fpc, she did not follow up and stopped taking the medication. When she finally came to Dr. Toledo's office yesterday, she was found to have platelets > 1200 and immediately sent to the ED where she had a Chest CT that revealed no PE or acute pathology. Patient continued to complain of chest pain, shortness of breath, especially with respiratory inspiration. Cardiac workup was done and negative so far. Patient in the past had thrombocytosis with pharesis done. She also had multiple episodes of seizures but was eventually diagnosed with Pseudo seizure, as per neuro. Around 1830, Rapid response was called and patient was found to be seizing. Multiple rounds of 2mg Ativan was given (4 rounds) and patient was almost intubated. However, patient regained consciousness and no further seizure episodes. Patient had one episode of vomiting after seizure. Keppra 1000mg given and transferred to the ICU for further monitoring. PMHx: CML MS Fibromyalgia CVA GERD HTN CAD HYPOTHYROIDISM PSEUDO SEIZURES RLS CERVICAL SPINAL STENOSIS PSHx: hysterectomy R THR L TKR appendectomy Social Hx: Denies smoking Denies alcohol Reports use of medicinal marijuana Family Hx: Unsure of parents medical history Daughter with RA Allergies: Sulfa REVIEW OF SYSTEMS: Unable to obtain due to patients medical condition PHYSICAL EXAMINATION Vital Signs - 24 hr 04/04/18 04/04/18 04/04/18 09:00 09:31 13:00 Temperature 98.8 F 98.7 F Pulse Rate 77 74 Respiratory 18 Rate Blood Pressure 179/59 H 136/59 L O2 Sat by Pulse 96 Oximetry (%) 04/04/18 04/04/18 04/04/18 17:00 17:31 17:47 Temperature 98.6 F 98.6 F Pulse Rate 75 75 Respiratory 20 18 Rate Blood Pressure 136/57 L 136/57 L O2 Sat by Pulse 96 Oximetry (%) 04/04/18 04/04/18 18:55 19:30 Temperature Pulse Rate 88 78 Respiratory 20 20 Rate Blood Pressure 137/48 L 140/78 O2 Sat by Pulse Oximetry (%) GENERAL: Lethargic and drowsy EYES: PERRL ENT: moist mucous membranes. NECK: Supple. (-) JVD or lymphadenopathy LUNGS: Clear to auscultation bilaterally, no wheezes, no crackles, no accessory muscle use. HEART: Regular rate and rhythm ABDOMEN: Soft, Obese, nontender, nondistended, normoactive bowel sounds. EXTREMITIES: No peripheral edema. Everted left foot NEUROLOGICAL: Unable to assess due to patients medical condition SKIN: No lesions or rashes noted Laboratory Results - last 24 hr 04/03/18 04/04/18 04/04/18 19:00 01:35 06:30 WBC 19.6 H RBC 4.23 Hgb 10.8 Hct 34.3 MCV 80.9 MCH 25.4 L MCHC 31.4 L RDW 16.6 H Plt Count 1125 H MPV 8.0 Absolute Neuts (auto) 13.8 H Neutrophils % 70.3 Neutrophils % (Manual) 75.0 63.3 Band Neutrophils % 2.0 3.1 Lymphocytes % 19.5 Lymphocytes % (Manual) 13.0 D 16.3 D Monocytes % 6.3 Monocytes % (Manual) 1 L D 13 H D Eosinophils % 3.3 Eosinophils % (Manual) 3.0 0.0 D Basophils % 0.6 Basophils % (Manual) 2.0 1.0 Myelocytes % (Man) 4 H D 0 D Promyelocytes % (Man) 0 D Blast Cells % (Manual) 0 Nucleated RBC % 0 Metamyelocytes 0 2 D Hypochromia 1+ 0 Platelet Estimate Significant increase Increased Platelet Comment Large platelets Present Polychromasia 0 Poikilocytosis 1+ Anisocytosis 1+ Microcytosis 0 Macrocytosis 0 Target Cells Few Ovalocytes 1+ Sodium Potassium Chloride Carbon Dioxide Anion Gap BUN Creatinine Creat Clearance w eGFR POC Glucometer Random Glucose Calcium Phosphorus Magnesium Creatine Kinase 73 Troponin I 0.07 H 04/04/18 04/04/18 04/04/18 06:30 19:00 20:50 WBC RBC Hgb Hct MCV MCH MCHC RDW Plt Count MPV Absolute Neuts (auto) Neutrophils % Neutrophils % (Manual) Band Neutrophils % Lymphocytes % Lymphocytes % (Manual) Monocytes % Monocytes % (Manual) Eosinophils % Eosinophils % (Manual) Basophils % Basophils % (Manual) Myelocytes % (Man) Promyelocytes % (Man) Blast Cells % (Manual) Nucleated RBC % Metamyelocytes Hypochromia Platelet Estimate Platelet Comment Polychromasia Poikilocytosis Anisocytosis Microcytosis Macrocytosis Target Cells Ovalocytes Sodium 144 Potassium 4.6 Chloride 109 H Carbon Dioxide 29 Anion Gap 7 L BUN 12 Creatinine 1.1 Creat Clearance w eGFR 48.69 POC Glucometer 92 Random Glucose 77 Calcium 9.1 Phosphorus 6.8 H Magnesium 2.1 Creatine Kinase 70 68 Troponin I 0.05 Active Medications Generic Name Dose Route Start Last Admin Trade Name Freq PRN Reason Stop Dose Admin Albuterol/Ipratropium 1 amp 04/04/18 13:13 Duoneb - NEB Q6H PRN SHORTNESS OF BREATH Amlodipine Besylate 2.5 mg 04/04/18 10:00 04/04/18 10:16 Norvasc - PO 2.5 mg DAILY ROSALIE Administration Aspirin 81 mg 04/04/18 22:00 Ecotrin - PO BID ROSALIE Chlorhexidine Gluconate 1 applic 04/04/18 22:00 Hibiclens For Decolonization - TP HS ROSALIE Clonazepam 0.5 mg 04/04/18 10:00 04/04/18 10:12 Klonopin - PO 0.5 mg BID ROSALIE Administration Docusate Sodium 300 mg 04/04/18 22:00 Colace - PO HS ROSALIE Furosemide 20 mg 04/04/18 10:00 04/04/18 10:15 Lasix - PO 20 mg DAILY ROSALIE Administration Gabapentin 600 mg 04/04/18 06:00 04/04/18 14:35 Neurontin - PO 600 mg TID ROSALIE Administration Heparin Sodium (Porcine) 5,000 unit 04/04/18 06:00 04/04/18 14:35 Heparin - SQ 5,000 unit TID ROSALIE Administration Hydroxyurea 500 mg 04/04/18 10:00 04/04/18 10:15 Hydrea - PO 500 mg Q12H ROSALIE Administration Sodium Chloride 1,000 mls @ 60 mls/hr 04/04/18 14:30 04/04/18 18:00 Normal Saline - IV 60 mls/hr ASDIR ROSALIE Administration Imatinib Mesylate 400 mg 04/05/18 10:00 Gleevec (Restricted To Oncology) - PO 04/09/18 10:01 DAILY ROSALIE Levetiracetam 1,000 mg 04/04/18 10:00 04/04/18 10:15 Keppra - PO 1,000 mg BID ROSALIE Administration Levothyroxine Sodium 25 mcg 04/04/18 07:00 04/04/18 07:14 Synthroid - PO 25 mcg DAILY@0700 ROSALIE Administration Losartan Potassium 50 mg 04/04/18 10:00 04/04/18 10:14 Cozaar - PO 50 mg DAILY ROSALIE Administration Melatonin 5 mg 04/04/18 00:06 Melatonin PO HS PRN INSOMNIA Mupirocin 1 applic 04/04/18 22:00 Bactroban Ointment (For Decolonization) - NS 04/09/18 21:59 BID ROSALIE Non-Formulary Medication 400 mg 04/10/18 10:00 Imatinib Mesylate PO DAILY ROSALIE Oxycodone HCl 10 mg 04/04/18 00:05 04/04/18 18:37 Roxicodone - PO 10 mg Q6H PRN Administration PAIN LEVEL 6-10 Pantoprazole Sodium 40 mg 04/04/18 10:00 04/04/18 10:16 Protonix - PO 40 mg DAILY ROSALIE Administration Pramipexole Dihydrochloride 0.5 mg 04/04/18 06:00 04/04/18 14:35 Mirapex - PO 0.5 mg TID ROSALIE Administration Senna 1 tab 04/04/18 00:03 Senna - PO DAILY PRN CONSTIPATION Tizanidine HCl 4 mg 04/04/18 00:03 04/04/18 14:36 Tizanidine Hcl PO 4 mg TID PRN Administration MUSCLE SPASMS ASSESSMENT/PLAN: Patient is a 72 year old female who was sent to the hospital by her oncologist, Dr. Toledo, for chest pain and thrombocytosis. Patient was found to have platelets >1200 and complained of chest pain with shortness of breath. Patient admitted to telemetry and rapid response was called for witnessed seizures with a near intubation. Patient transferred to ICU for further monitoring and management. 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 Spoke to Neurologist, Dr. West, who evaluated patient and suspects pseudo seizures. -Continue Levetiracetam 1000 mg PO q 12 hrs -Ativan PRN -Continue to monitor in ICU #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 -Was on Avenox 30mcg weekly on Mondays but is currently on no medications -Follows Neurology as outpatient #Cervical Spinal Stenosis -Continue Gabapentin 600mg po TID -Oxycodone 7.5 mg q 8hrs (standing), as per neurologist #Restless Leg Syndrome -Pramipexole 7.5mg Q8H, as per neurologist -Clonazepam 1mg Q8H, as per neurologist Heme/Onc: #Chronic Myeloid Leukemia -Continue Hydroxyurea and Gleevac -Continue Allopurinol #Thrombocytosis/Leukocytosis -Secondary to CML -Continue CBC, LDH, and Uric acid Cardio: #HTN-controlled -Continue Amlodipine 2.5mg PO daily, Losartan 50mg PO daily, Lasix 20mg daily -Continue to monitor BP #CAD -Continue ASA 81mg po daily ENDOCRINOLOGY #Hypothyroidism -Continue Synthroid 25mcg daily PSYCH: #Anxiety/Depression -Increase Klonopin 1mg once patient is more alert and less lethargic, as per neurologist -Consider anti-depressant Bupropion XL 150 mg qd x 2 weeks then 300 mg q d F/E/N -IV NS @60mls/hr -Electrolytes wnl -Sodium controlled diet. NPO after midnight Prophylaxis -Continue Heparin 5000 units sq TID for DVT -Protonix 40mg PO daily for GI Disposition -Full code -Overnight monitoring in ICU for further seizures. Saniya Finch [id number] Visit type - Emergency Visit Emergency Visit: Yes ED Registration Date: 04/03/18 Care time: The patient presented to the Emergency Department on the above date and was hospitalized for further evaluation of their emergent condition. - New Patient This patient is new to me today: Yes Date on this admission: 04/04/18 - Critical Care Critical Care patient: Yes Total Critical Care Time (in minutes): 45 Critical Care Statement: The care of this patient involved high complexity decision making to prevent further life threatening deterioration of the patient 's condition and/or to evaluate & treat vital organ system(s) failure or risk of failure.
[2018-04-04] MEDS ORDERED: DOCUSATE SODIUM 100 MG CAPSULE (FP) PO SCH (22:00)
[2018-04-04] MEDS ORDERED: CHLORHEXIDINE GLUCONATE 4% CLEANSER FOR DECOLONIZATION TP SCH (22:00)
--- NOTE | 2018-04-04 22:03 | CONSULT ---
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 Recently diagnoses with CML and started on Gleevac, here in December, with a brisk response to both WBC and Platelet counts. However, has been in a jail and has not received Gleevac. Saw Dr Blanco today who noted WBC=21K and platelets=1.25 million and sent patient for admission. Pt c/o diffuse body pain and claims she "is going to ." Meds include: Amlodipine; Aspirin 81; Furosemide; Losartan; clonazePAM 0.5 BID; Allopurinol; Gleevec; Levothyroxine; Pramipexole 0.5 TID; levETIRAcetam 1,000 BID; Tizanidine 4 mg TID; Gabapentin 400 Q8; Hydrocodone/Acetaminophen. Patient had seizure activity in the ED and on the floor and was given a total of 10 mg Lorazepam today. Witnesses describe jerky movements of the head to the right with rapid ( immediate) reorientation. CT of head (reviewed): Normal Now: awake, alert. Ox3. MS anxious but normal. Speech fluent. CN II-XII: normal Motor: No drift. Normal strength. Brisk reflexes. Toes down going. 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 Increase pramipexole to 7.5 mg q 8hrs. Increase clonazepam to 1 mg q 8hrs. Continue Rx for CML and try to reassure patient. Consider resumption of antidepressant Rx (Try Bupropion XL 150 mg qd x 2 weeks then 300 mg q d). Thank you very much, Donald West MD
[2018-04-04] MEDS: ASPIRIN COATED 81 MG TABLET.EC PO SCH (22:19)
[2018-04-05] MEDS: oxyCODONE HCL 5 MG TABLET PO PRN (06:16)
[2018-04-05 06:17] LABS: BASO % 0.4 % (0-2.0); HEMATOCRIT 34.5 % (32.4-45.2); HEMOGLOBIN 10.7 GM/dL (10.7-15.3); LYMPH % 21.9 % (8-40); MCH 25.2 pg (25.7-33.7); MEAN CELL VOLUME 81.2 fl (80-96); MEAN PLT VOLUME 8.2 fl (7.5-11.1); MONO % 4.6 % (3.8-10.2); NEUT % 68.1 % (42.8-82.8); RBC 4.25 M/mm3 (3.60-5.2); RDW 16.5 % (11.6-15.6)
[2018-04-05] MEDS: PRAMIPEXOLE DIHYDROCHLORIDE 0.5 MG TABLET PO SCH ×4 (06:17→21:08)
[2018-04-05] MEDS: GABAPENTIN 300 MG CAPSULE (FP) PO SCH (06:17)
[2018-04-05] MEDS: HEPARIN NA (PORCINE) 5,000 UNITS/ML 1ML VIAL SQ SCH ×3 (06:17→21:10)
[2018-04-05] MEDS: LEVOTHYROXINE NA 25 MCG TABLET (FP) PO SCH (06:18)
[2018-04-05 06:28] LABS: PLATELET COUNT 1131 K/MM3 (134-434)
[2018-04-05] MEDS ORDERED: PT OWN MED DRAWER 7, Y5N ONE ×3 (06:54→18:51)
[2018-04-05 07:28] LABS: ALBUMIN 3.1 g/dl (3.4-5.0); ALK PHOS 116 U/L (45-117); ANION GAP 9 MMOL/L (8-16); BILIRUBIN,TOTAL 0.3 mg/dL (0.2-1); BLOOD UREA NITROGEN 18 mg/dL (7-18); CALCIUM 8.6 mg/dL (8.5-10.1); CHLORIDE 107 mmol/L (98-107); CO2 29 mmol/L (21-32); CREATININE 1.1 mg/dL (0.55-1.3); GLUCOSE,RANDOM 65 mg/dL (74-106); LDH 183 U/L (84-246); SGOT/AST 18 U/L (15-37); SGPT/ALT 14 U/L (13-61); SODIUM 144 mmol/L (136-145); TOT PROT 6.2 g/dl (6.4-8.2); URIC ACID 6.3 mg/dL (2.6-7.2)
--- NOTE | 2018-04-05 08:51 | CON.CARD ---
Cardiology Consult (text) - Consultation Consultation Note: Cardiology Consult Dictated IMP: CML Thrombocytosis Leukocytosis Pleurtic CP with negative CTA, Echo and ECG Likely non cardiac CP REC: 1. Further Rx Thrombocytosis as per Oncology 2. ASA 81mg daily 3. To consider nuclear stress prior to discharge when seizures resolved. 4. DVT prophylaxis Will follow Thank you
--- NOTE | 2018-04-05 09:29 | PN ---
Progress Note, Physician - Current Medication List Current Medications: Active Medications Albuterol/Ipratropium (Duoneb -) 1 amp NEB Q6H PRN PRN Reason: SHORTNESS OF BREATH Albuterol/Ipratropium (Duoneb -) 1 amp NEB RQID [facility] Allopurinol (Zyloprim -) 300 mg PO DAILY [facility] Amlodipine Besylate (Norvasc -) 2.5 mg PO DAILY [facility] Last Admin: 04/04/18 10:16 Dose: 2.5 mg Aspirin (Ecotrin -) 81 mg PO BID [facility] Last Admin: 04/04/18 22:19 Dose: 81 mg Chlorhexidine Gluconate (Hibiclens For Decolonization -) 1 applic TP HS [facility] Last Admin: 04/04/18 22:20 Dose: 1 applic Clonazepam (Klonopin -) 0.5 mg PO BID [facility] Last Admin: 04/04/18 22:19 Dose: 0.5 mg Docusate Sodium (Colace -) 300 mg PO HS [facility] Last Admin: 04/04/18 22:18 Dose: 300 mg Furosemide (Lasix -) 20 mg PO DAILY [facility] Last Admin: 04/04/18 10:15 Dose: 20 mg Gabapentin (Neurontin -) 600 mg PO TID [facility] Last Admin: 04/05/18 06:17 Dose: 600 mg Heparin Sodium (Porcine) (Heparin -) 5,000 unit SQ TID [facility] Last Admin: 04/05/18 06:17 Dose: 5,000 unit Hydroxyurea (Hydrea -) 500 mg PO Q12H [facility] Last Admin: 04/04/18 22:39 Dose: 500 mg Sodium Chloride (Normal Saline -) 1,000 mls @ 60 mls/hr IV ASDIR [facility] Last Admin: 04/04/18 18:00 Dose: 60 mls/hr Imatinib Mesylate (Gleevec (Restricted To Oncology) -) 400 mg PO DAILY [facility] Stop: 04/09/18 10:01 Levetiracetam (Keppra -) 1,000 mg PO BID [facility] Last Admin: 04/04/18 22:18 Dose: 1,000 mg Levothyroxine Sodium (Synthroid -) 25 mcg PO DAILY@0700 [facility] Last Admin: 04/05/18 06:18 Dose: 25 mcg Losartan Potassium (Cozaar -) 50 mg PO DAILY [facility] Last Admin: 04/04/18 10:14 Dose: 50 mg Melatonin (Melatonin) 5 mg PO HS PRN PRN Reason: INSOMNIA Mupirocin (Bactroban Ointment (For Decolonization) -) 1 applic NS BID [facility] Stop: 04/09/18 21:59 Oxycodone HCl (Roxicodone -) 10 mg PO Q6H PRN PRN Reason: PAIN LEVEL 6-10 Last Admin: 04/05/18 06:16 Dose: 10 mg Pantoprazole Sodium (Protonix -) 40 mg PO DAILY [facility] Last Admin: 04/04/18 10:16 Dose: 40 mg Pramipexole Dihydrochloride (Mirapex -) 0.5 mg PO TID [facility] Last Admin: 04/05/18 06:17 Dose: 0.5 mg Senna (Senna -) 1 tab PO DAILY PRN PRN Reason: CONSTIPATION Tizanidine HCl (Tizanidine Hcl) 4 mg PO TID PRN PRN Reason: MUSCLE SPASMS Last Admin: 04/04/18 14:36 Dose: 4 mg - Objective Vital Signs: Vital Signs Temperature 98.1 F 04/04/18 22:00 Pulse Rate 66 04/05/18 08:42 Respiratory Rate 15 04/05/18 08:42 Blood Pressure 121/56 L 04/05/18 08:42 O2 Sat by Pulse Oximetry (%) 100 04/04/18 21:00 Cardiovascular: Yes: S1, S2 Respiratory: Yes: Regular, CTA Bilaterally Gastrointestinal: Yes: Normal Bowel Sounds, Soft Neurological: Yes: Alert, Oriented Labs: CBC, BMP 04/05/18 05:30 04/05/18 05:30 INR, PTT INR 1.09 (0.83-1.09) 04/03/18 19:11 Assessment/Plan - Problems (1) Chest pain Assessment/Plan: atypical chest pain telemetry CE 3 sets noted cardiology and pulm eval echo CTA ordered no PE doppler of legs done- no dvt Code(s): R07.9 - CHEST PAIN, UNSPECIFIED (2) CML (chronic myelocytic leukemia) Assessment/Plan: gleevac and hydroxyurea heme on board Code(s): C92.10 - CHRONIC MYELOID LEUK, BCR/ABL-POSITIVE, NOT ACHIEVE REMIS (3) Hypothyroid Assessment/Plan: tsh ok on synthroid Code(s): E03.9 - HYPOTHYROIDISM, UNSPECIFIED (4) Thrombocytosis Assessment/Plan: heme on board secondary to leukemia Code(s): D47.3 - ESSENTIAL (HEMORRHAGIC) THROMBOCYTHEMIA (5) Anxiety disorder Assessment/Plan: lorazepam Code(s): F41.9 - ANXIETY DISORDER, UNSPECIFIED Qualifiers: 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 Increase pramipexole to 7.5 mg q 8hrs. Increase clonazepam to 1 mg q 8hrs. Continue Rx for CML and try to reassure patient. Consider resumption of antidepressant Rx (Try Bupropion XL 150 mg qd x 2 weeks then 300 mg q d).
--- NOTE | 2018-04-05 09:34 | CONS ---
DATE OF CONSULTATION: 04/05/2018 CONSULTATION REQUESTED BY: Justina Menchaca MD REASON FOR CONSULTATION: Shortness of breath and atypical chest pain. The patient is my office patient for many years. She is a 73-year-old female with a past medical history of hypertension, hypothyroidism, CML diagnosed in November of 2017, prior CVA, MS, fibromyalgia, and pseudoseizures, who was sent to the ER by her oncologist for complaints of pleuritic chest pain and abnormal labs revealing significant thrombocytosis. The patient was diagnosed with CML approximately November of 2017 and was started on Gleevec therapy. She has had some nonadherence with outpatient followup. As an outpatient, she was found to have recent platelet count of greater than 1000 and sent to the ER for workup of her pleuritic chest pain with a CTA which was negative for pulmonary embolism or other acute pathology. Patient then continued to complain of generalized dyspnea with inspiration and chest pain with inspiration. An echocardiogram was performed which was unremarkable. Cardiac enzymes are also negative. The patient has had thrombocytosis with pheresis done in the past. She has also had multiple seizures and ultimately diagnosed with pseudoseizures as per neurology. Yesterday around 6:30 p.m. a rapid response was called, and the patient was found to be seizing. Multiple rounds of Ativan were given, and the patient was brought to the ICU for further monitoring. She subsequently regained consciousness with no further seizure activity. This morning she was seen and examined in the ICU in no acute distress. She denied chest pain or shortness of breath at this time. Telemetry has shown normal sinus rhythm. PAST MEDICAL HISTORY: CML, MS, fibromyalgia, prior CVA, GERD, hypertension, nonobstructive coronary artery disease, hypothyroidism, pseudoseizures, restless leg syndrome, and cervical spinal stenosis. PAST SURGICAL HISTORY: Prior hysterectomy, right total hip replacement, left total knee replacement, and appendectomy. SOCIAL HISTORY: Nonsmoker, nondrinker. Occasional use of medical marijuana. FAMILY HISTORY: Noncontributory to this presentation. ALLERGIES: She is allergic to SULFA. PHYSICAL EXAMINATION: General: Alert, oriented, anicteric, afebrile. Vital Signs: Temperature 98.1, pulse 66, blood pressure 122/56, O2 saturation 100% on 3 L. Neck: No JVD or carotid bruits. Heart: Regular. Chest: Clear bilaterally without wheezing. Abdomen: Soft, nontender. Extremities: No edema. DIAGNOSTIC DATA: Her ECG showed normal sinus rhythm with no acute ST changes. White count 19, hemoglobin 10.7, platelets 1131, INR 1.09, sodium 144, potassium 5, creatinine 1.1. LFTs are normal. CK, troponin negative x2 sets. Head CT was also performed and showed no acute pathology. IMPRESSION: A 73-year-old woman with past medical history of CML, admitted with pleuritic chest pain, leukocytosis and thrombocytosis, found to have a negative CTA for pulmonary embolism and an unremarkable echocardiogram. Electrocardiogram and cardiac enzymes are unremarkable/normal. Her pleuritic symptoms are most likely noncardiac in origin. RECOMMENDATIONS: 1. Treatment of thrombocytosis as per Hematology. 2. Can consider repeating pharmacological stress prior to discharge. 3. Supplemental O2 as needed. 4. Pulmonary and oncology followup. Thank you for the consultation. MARGARITA LARKIN M.D. [id number]
[2018-04-05] MEDS: ASPIRIN COATED 81 MG TABLET.EC PO SCH ×2 (09:55→21:03)
[2018-04-05] MEDS: LOSARTAN POTASSIUM 50 MG TABLET (FP) PO SCH (09:55)
[2018-04-05] MEDS: clonazePAM 0.5 MG TABLET PO SCH ×2 (09:55→21:07)
[2018-04-05] MEDS: FUROSEMIDE 20 MG TABLET (FP) PO SCH (09:55)
[2018-04-05] MEDS: PANTOPRAZOLE 40 MG TABLET (FP) PO SCH (09:56)
[2018-04-05] MEDS: levETIRAcetam 500 MG TABLET (FP) PO SCH ×2 (09:56→21:05)
[2018-04-05] MEDS: amLODIPine BESYLATE 2.5 MG TABLET (FP) PO SCH (09:56)
[2018-04-05] MEDS ORDERED: IMATINIB MESYLATE 100 MG TABLET PO SCH (10:00)
[2018-04-05] MEDS ORDERED: ALLOPURINOL 300 MG TABLET (FP) PO SCH (10:00)
[2018-04-05] MEDS: MUPIROCIN 2% TOPICAL OINTMENT FOR DECOLONIZATION NS SCH ×2 (10:41→17:20)
[2018-04-05] MEDS: HYDROXYUREA 500 MG CAPSULE PO SCH (10:43)
[2018-04-05 11:45] LABS: ANISOCYTOSIS 0; MACROCYTOSIS 0; PLATELET ESTIMATE INCREASED
[2018-04-05] MEDS ORDERED: ACETAMINOPHEN 325 MG TABLET (FP) PO ONE (12:00)
[2018-04-05] MEDS: ALBUTEROL SO4 2.5/IPRATROPIUM 0.5 INH SOL 3 ML VIAL.NEB. NEB SCH ×3 (12:28→20:20)
[2018-04-05] MEDS ORDERED: PRAMIPEXOLE DIHYDROCHLORIDE 0.5 MG TABLET PO SCH (12:45)
--- NOTE | 2018-04-05 12:54 | PN ---
Physical Exam: SUBJECTIVE: Patient seen and examined at bedside. reports ADAME but otherwise ok. denies cp, sob OBJECTIVE: Vital Signs Period Temp Pulse Resp BP Sys/Teague Pulse Ox Last 24 Hr 98.1 F-98.7 F 62-88 14-20 104-161/48-78 96-100 GENERAL: AOX3, NAD EYES: PERRL ENT: MMM NECK: Supple. (-) JVD or lymphadenopathy LUNGS: CTAB, no wheezes, no crackles, no accessory muscle use. HEART: RRR S1 S2, no m/r/g ABDOMEN: Soft, Obese, NTND normoactive bowel sounds. EXTREMITIES: No peripheral edema. Everted left foot NEUROLOGICAL: AOX3, sensations strength grossly intact. CNI-XII, grossly intact SKIN: No lesions or rashes noted Laboratory Results - last 24 hr 04/04/18 04/04/18 04/05/18 19:00 20:50 05:30 WBC 19.0 H RBC 4.25 Hgb 10.7 Hct 34.5 MCV 81.2 MCH 25.2 L MCHC 31.0 L RDW 16.5 H Plt Count 1131 H MPV 8.2 Absolute Neuts (auto) 12.9 H Neutrophils % 68.1 Lymphocytes % 21.9 Monocytes % 4.6 Eosinophils % 5.0 H Basophils % 0.4 Nucleated RBC % 0 Sodium Potassium Chloride Carbon Dioxide Anion Gap BUN Creatinine Creat Clearance w eGFR POC Glucometer 92 Random Glucose Uric Acid Calcium Total Bilirubin AST ALT Alkaline Phosphatase LD Total Creatine Kinase 68 Total Protein Albumin 04/05/18 05:30 WBC RBC Hgb Hct MCV MCH MCHC RDW Plt Count MPV Absolute Neuts (auto) Neutrophils % Lymphocytes % Monocytes % Eosinophils % Basophils % Nucleated RBC % Sodium 144 Potassium 5.0 Chloride 107 Carbon Dioxide 29 Anion Gap 9 BUN 18 Creatinine 1.1 Creat Clearance w eGFR 48.69 POC Glucometer Random Glucose 65 L Uric Acid 6.3 Calcium 8.6 Total Bilirubin 0.3 AST 18 ALT 14 Alkaline Phosphatase 116 LD Total 183 Creatine Kinase Total Protein 6.2 L Albumin 3.1 L Active Medications Generic Name Dose Route Start Last Admin Trade Name Freq PRN Reason Stop Dose Admin Albuterol/Ipratropium 1 amp 04/04/18 13:13 Duoneb - NEB Q6H PRN SHORTNESS OF BREATH Albuterol/Ipratropium 1 amp 04/05/18 12:00 Duoneb - NEB RQID ROSALIE Allopurinol 300 mg 04/05/18 10:00 04/05/18 09:58 Zyloprim - PO 300 mg DAILY ROSALIE Administration Amlodipine Besylate 2.5 mg 04/04/18 10:00 04/05/18 09:56 Norvasc - PO 2.5 mg DAILY ROSALIE Administration Aspirin 81 mg 04/04/18 22:00 04/05/18 09:55 Ecotrin - PO 81 mg BID ROSALIE Administration Chlorhexidine Gluconate 1 applic 04/04/18 22:00 04/04/18 22:20 Hibiclens For Decolonization - TP 1 applic HS ROSALIE Administration Clonazepam 0.5 mg 04/04/18 10:00 04/05/18 09:55 Klonopin - PO 0.5 mg BID ROSALIE Administration Docusate Sodium 300 mg 04/04/18 22:00 04/04/18 22:18 Colace - PO 300 mg HS ROSALIE Administration Furosemide 20 mg 04/04/18 10:00 04/05/18 09:55 Lasix - PO 20 mg DAILY ROSALIE Administration Gabapentin 600 mg 04/04/18 06:00 04/05/18 06:17 Neurontin - PO 600 mg TID ROSALIE Administration Heparin Sodium (Porcine) 5,000 unit 04/04/18 06:00 04/05/18 06:17 Heparin - SQ 5,000 unit TID ROSALIE Administration Hydroxyurea 500 mg 04/04/18 10:00 04/05/18 10:43 Hydrea - PO 500 mg Q12H ROSALIE Administration Sodium Chloride 1,000 mls @ 60 mls/hr 04/04/18 14:30 04/04/18 18:00 Normal Saline - IV 60 mls/hr ASDIR ROSALIE Administration Imatinib Mesylate 400 mg 04/05/18 10:00 04/05/18 10:43 Gleevec (Restricted To Oncology) - PO 04/09/18 10:01 400 mg DAILY ROSALIE Administration Levetiracetam 1,000 mg 04/04/18 10:00 04/05/18 09:56 Keppra - PO 1,000 mg BID ROSALIE Administration Levothyroxine Sodium 25 mcg 04/04/18 07:00 04/05/18 06:18 Synthroid - PO 25 mcg DAILY@0700 ROSALIE Administration Losartan Potassium 50 mg 04/04/18 10:00 04/05/18 09:55 Cozaar - PO 50 mg DAILY ROSALIE Administration Melatonin 5 mg 04/04/18 00:06 Melatonin PO HS PRN INSOMNIA Mupirocin 1 applic 04/04/18 22:00 04/05/18 10:41 Bactroban Ointment (For Decolonization) - NS 04/09/18 21:59 1 applic BID ROSALIE Administration Oxycodone HCl 10 mg 04/04/18 00:05 04/05/18 06:16 Roxicodone - PO 10 mg Q6H PRN Administration PAIN LEVEL 6-10 Pantoprazole Sodium 40 mg 04/04/18 10:00 04/05/18 09:56 Protonix - PO 40 mg DAILY ROSALIE Administration Pramipexole Dihydrochloride 0.5 mg 04/04/18 06:00 04/05/18 06:17 Mirapex - PO 0.5 mg TID ROSALIE Administration Senna 1 tab 04/04/18 00:03 04/05/18 09:57 Senna - PO 1 tab DAILY PRN Administration CONSTIPATION Tizanidine HCl 4 mg 04/04/18 00:03 04/04/18 14:36 Tizanidine Hcl PO 4 mg TID PRN Administration MUSCLE SPASMS ASSESSMENT/PLAN: Patient is a 72 year old female who was sent to the hospital by her oncologist, Dr. Toledo, for chest pain and thrombocytosis. Patient was found to have platelets >1200 and complained of chest pain with shortness of breath. Patient admitted to telemetry and rapid response was called for witnessed seizures with a near intubation. Patient transferred to ICU for further monitoring and management. 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 Spoke to Neurologist, Dr. West, who evaluated patient and suspects pseudo seizures. -Continue Levetiracetam 1000 mg PO q 12 hrs, Gabapentin 400 mg q 8 hrs; Oxycodone 7.5 mg q 8hrs (standing), as per neurologist -Ativan PRN -Pt is stable now and can be transferred back to the floor #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 -Was on Avenox 30mcg weekly on Mondays but is currently on no medications -Follows Neurology as outpatient #Cervical Spinal Stenosis -Continue Gabapentin 600mg po TID -Oxycodone 7.5 mg q 8hrs (standing), as per neurologist #Restless Leg Syndrome -increase Pramipexole from .5 to 0.75mg Q8H. per neurologist note, increase to 7.5mg , this may be a typo as pharmacy called me saying this is a large increase and drug is usually increased gradually. will increase to .75mg for now. will need to f/u w/ neuro -Clonazepam 1mg Q8H, as per neurologist Heme/Onc: #Chronic Myeloid Leukemia -Continue Hydroxyurea and Gleevac -Continue Allopurinol #Thrombocytosis/Leukocytosis -Secondary to CML -Continue CBC, LDH, and Uric acid Cardio: #HTN-controlled -Continue Amlodipine 2.5mg PO daily, Losartan 50mg PO daily, Lasix 20mg daily -Continue to monitor BP #CAD -Continue ASA 81mg po daily ENDOCRINOLOGY #Hypothyroidism -Continue Synthroid 25mcg daily PSYCH: #Anxiety/Depression -Clonazepam 1mg Q8H, as per neurologist -Consider anti-depressant Bupropion XL 150 mg qd x 2 weeks then 300 mg q d F/E/N -IV NS @60mls/hr -Electrolytes wnl -regular diet Prophylaxis -Continue Heparin 5000 units sq TID for DVT -Protonix 40mg PO daily for GI Disposition -Full code -pt is stable and ready for transfer to med/surg. We will sign off. Further care per primary team/PCP Visit type - Emergency Visit Emergency Visit: Yes ED Registration Date: 04/03/18 Care time: The patient presented to the Emergency Department on the above date and was hospitalized for further evaluation of their emergent condition. - New Patient This patient is new to me today: Yes Date on this admission: 04/05/18 - Critical Care Critical Care patient: Yes Total Critical Care Time (in minutes): 38 Critical Care Statement: The care of this patient involved high complexity decision making to prevent further life threatening deterioration of the patient 's condition and/or to evaluate & treat vital organ system(s) failure or risk of failure.
[2018-04-05] MEDS: oxyCODONE HCL 5 MG TABLET PO SCH ×3 (13:02→21:09)
--- NOTE | 2018-04-05 13:05 | PN ---
Teaching Attending Note Name of Resident: Ollie Ariza ATTENDING PHYSICIAN STATEMENT I saw and evaluated the patient. I reviewed the resident's note and discussed the case with the resident. I agree with the resident's findings and plan as documented. SUBJECTIVE: Patient seen and examined in the ICU. Awake and alert. Feels overall better. No CP or SOB. No seizure. Intake & Output 04/02/18 04/03/18 04/04/18 04/05/18 23:59 23:59 23:59 23:59 Intake Total 600 Balance 600 Weight 178 lb 9.191 oz 178 lb Last Vital Signs Temp Pulse Resp BP Pulse Ox 98.6 F 66 15 155/67 100 04/05/18 10:00 04/05/18 11:44 04/05/18 11:44 04/05/18 11:44 04/04/18 21:00 Active Medications Albuterol/Ipratropium (Duoneb -) 1 amp NEB Q6H PRN PRN Reason: SHORTNESS OF BREATH Albuterol/Ipratropium (Duoneb -) 1 amp NEB RQID [facility] Last Admin: 04/05/18 12:28 Dose: 1 amp Allopurinol (Zyloprim -) 300 mg PO DAILY [facility] Last Admin: 04/05/18 09:58 Dose: 300 mg Amlodipine Besylate (Norvasc -) 2.5 mg PO DAILY [facility] Last Admin: 04/05/18 09:56 Dose: 2.5 mg Aspirin (Ecotrin -) 81 mg PO BID [facility] Last Admin: 04/05/18 09:55 Dose: 81 mg Chlorhexidine Gluconate (Hibiclens For Decolonization -) 1 applic TP HS [facility] Last Admin: 04/04/18 22:20 Dose: 1 applic Clonazepam (Klonopin -) 1 mg PO TID ROSALIE Docusate Sodium (Colace -) 300 mg PO HS [facility] Last Admin: 04/04/18 22:18 Dose: 300 mg Furosemide (Lasix -) 20 mg PO DAILY [facility] Last Admin: 04/05/18 09:55 Dose: 20 mg Gabapentin (Neurontin -) 400 mg PO TID [facility] Heparin Sodium (Porcine) (Heparin -) 5,000 unit SQ TID [facility] Last Admin: 04/05/18 06:17 Dose: 5,000 unit Hydroxyurea (Hydrea -) 500 mg PO Q12H [facility] Last Admin: 10/26/18 10:43 Dose: 500 mg Sodium Chloride (Normal Saline -) 1,000 mls @ 60 mls/hr IV ASDIR [facility] Last Admin: 04/04/18 18:00 Dose: 60 mls/hr Imatinib Mesylate (Gleevec (Restricted To Oncology) -) 400 mg PO DAILY [facility] Stop: 04/09/18 10:01 Last Admin: 04/05/18 10:43 Dose: 400 mg Levetiracetam (Keppra -) 1,000 mg PO BID [facility] Last Admin: 04/05/18 09:56 Dose: 1,000 mg Levothyroxine Sodium (Synthroid -) 25 mcg PO DAILY@0700 [facility] Last Admin: 04/05/18 06:18 Dose: 25 mcg Losartan Potassium (Cozaar -) 50 mg PO DAILY [facility] Last Admin: 04/05/18 09:55 Dose: 50 mg Melatonin (Melatonin) 5 mg PO HS PRN PRN Reason: INSOMNIA Mupirocin (Bactroban Ointment (For Decolonization) -) 1 applic NS BID [facility] Stop: 04/09/18 21:59 Last Admin: 04/05/18 10:41 Dose: 1 applic Oxycodone HCl (Roxicodone -) 7.5 mg PO Q8H [facility] Pantoprazole Sodium (Protonix -) 40 mg PO DAILY [facility] Last Admin: 04/05/18 09:56 Dose: 40 mg Pramipexole Dihydrochloride (Mirapex -) 0.75 mg PO Q8H [facility] Senna (Senna -) 1 tab PO DAILY PRN PRN Reason: CONSTIPATION Last Admin: 04/05/18 09:57 Dose: 1 tab Tizanidine HCl (Tizanidine Hcl) 4 mg PO TID PRN PRN Reason: MUSCLE SPASMS Last Admin: 04/04/18 14:36 Dose: 4 mg GENERAL: Awake and alert EYES: PERRL ENT: moist mucous membranes. NECK: Supple. (-) JVD or lymphadenopathy LUNGS: Clear to auscultation bilaterally, no wheezes, no crackles, no accessory muscle use. HEART: Regular rate and rhythm ABDOMEN: Soft, Obese, nontender, nondistended, normoactive bowel sounds. EXTREMITIES: No peripheral edema. Everted left foot NEUROLOGICAL: non-focal SKIN: No lesions or rashes noted Laboratory Results - last 24 hr 04/03/18 04/04/18 04/04/18 19:00 01:35 06:30 WBC 19.6 H RBC 4.23 Hgb 10.8 Hct 34.3 MCV 80.9 MCH 25.4 L MCHC 31.4 L RDW 16.6 H Plt Count 1125 H MPV 8.0 Absolute Neuts (auto) 13.8 H Neutrophils % 70.3 Neutrophils % (Manual) 75.0 63.3 Band Neutrophils % 2.0 3.1 Lymphocytes % 19.5 Lymphocytes % (Manual) 13.0 D 16.3 D Monocytes % 6.3 Monocytes % (Manual) 1 L D 13 H D Eosinophils % 3.3 Eosinophils % (Manual) 3.0 0.0 D Basophils % 0.6 Basophils % (Manual) 2.0 1.0 Myelocytes % (Man) 4 H D 0 D Promyelocytes % (Man) 0 D Blast Cells % (Manual) 0 Nucleated RBC % 0 Metamyelocytes 0 2 D Hypochromia 1+ 0 Platelet Estimate Significant increase Increased Platelet Comment Large platelets Present Polychromasia 0 Poikilocytosis 1+ Anisocytosis 1+ Microcytosis 0 Macrocytosis 0 Target Cells Few Ovalocytes 1+ Sodium Potassium Chloride Carbon Dioxide Anion Gap BUN Creatinine Creat Clearance w eGFR POC Glucometer Random Glucose Calcium Phosphorus Magnesium Creatine Kinase 73 Troponin I 0.07 H 04/04/18 04/04/18 04/04/18 06:30 19:00 20:50 WBC RBC Hgb Hct MCV MCH MCHC RDW Plt Count MPV Absolute Neuts (auto) Neutrophils % Neutrophils % (Manual) Band Neutrophils % Lymphocytes % Lymphocytes % (Manual) Monocytes % Monocytes % (Manual) Eosinophils % Eosinophils % (Manual) Basophils % Basophils % (Manual) Myelocytes % (Man) Promyelocytes % (Man) Blast Cells % (Manual) Nucleated RBC % Metamyelocytes Hypochromia Platelet Estimate Platelet Comment Polychromasia Poikilocytosis Anisocytosis Microcytosis Macrocytosis Target Cells Ovalocytes Sodium 144 Potassium 4.6 Chloride 109 H Carbon Dioxide 29 Anion Gap 7 L BUN 12 Creatinine 1.1 Creat Clearance w eGFR 48.69 POC Glucometer 92 Random Glucose 77 Calcium 9.1 Phosphorus 6.8 H Magnesium 2.1 Creatine Kinase 70 68 Troponin I 0.05 ASSESSMENT/PLAN: Suspected Pseudoseizure MS Cervical Spinal Stenosis CML RLS Thrombocytosis Leukocytosis AEDs per Neuro O2 as needed Pramipexole 7.5mg Q8H, as per neurologist Clonazepam 1mg Q8H, as per neurologist IVF Hydroxyurea and Gleevac Allopurinol BP Meds VTE prophylaxis Floor Dr Major
[2018-04-05] MEDS ORDERED: clonazePAM 0.5 MG TABLET PO SCH (14:00)
[2018-04-05] MEDS ORDERED: GABAPENTIN 400 MG CAPSULE (FP) PO SCH (14:00)
--- NOTE | 2018-04-05 15:59 | PN ---
Progress Note (short form) - Note Progress Note: Patient seen and examined at bedside had pseudo seizure last night went to ICU Feels tired Vital Signs Temperature 98.6 F 04/05/18 10:00 Pulse Rate 67 04/05/18 13:07 Respiratory Rate 15 04/05/18 13:07 Blood Pressure 148/91 04/05/18 13:07 O2 Sat by Pulse Oximetry (%) 100 04/04/18 21:00 Constitutional: Yes: Obese, lethargic Eyes: Yes: Conjunctiva Clear, EOM Intact HENT: Yes: Atraumatic Neck: Yes: Supple. No: Lymphadenopathy Cardiovascular: Yes: Regular Rate and Rhythm, S1, S2 Respiratory: Yes: Regular, CTA Bilaterally, Other (faint bibasilar crackles) Gastrointestinal: Yes: Normal Bowel Sounds, Soft, Abdomen, Obese. No: Tenderness Musculoskeletal: Yes: CN 2-12 intact able to move all extremities Psychiatric: Yes: Alert, Oriented Labs: 04/05/18 04/05/18 05:30 05:30 WBC 19.0 H RBC 4.25 Hgb 10.7 Hct 34.5 MCV 81.2 MCHC 31.0 L RDW 16.5 H Plt Count 1131 H Neutrophils % 68.1 Lymphocytes % 21.9 Monocytes % 4.6 Eosinophils % 5.0 H Basophils % 0.4 Sodium 144 Potassium 5.0 Chloride 107 Carbon Dioxide 29 Anion Gap 9 BUN 18 Creatinine 1.1 A/P: 73F with extensive medical history including CML presents to the hospital at the direction of her oncologist/home paraprofessional due to chest pain and thrombocytopenia. Problem List: CML Chest pain Thrombocytosis HTN CHF Hypothyroidism PE ruled out already Plan: cardiology consult appreciated Continue Gleevac Continue Hyroxyurea but increase to 1000mg po QHS and 500mg po QAM Cytogenetics, Flow cytometry, and FISH studies Will need daily CBC CMP and LDH
[2018-04-05] MEDS: SODIUM CHLORIDE 1,000 ML IV SCH (16:34)
[2018-04-05] MEDS ORDERED: SODIUM CHLORIDE 1,000 ML IV SCH (17:26)
[2018-04-05] MEDS ORDERED: SENNOSIDES 8.6MG TABLET (FP) PO PRN (17:26)
[2018-04-05] MEDS ORDERED: ALBUTEROL SO4 2.5/IPRATROPIUM 0.5 INH SOL 3 ML VIAL.NEB. NEB PRN (17:26)
[2018-04-05] MEDS ORDERED: TIZANIDINE HCL 4 MG TABLET PO PRN (17:26)
[2018-04-05] MEDS: GABAPENTIN 400 MG CAPSULE (FP) PO SCH (21:09)
[2018-04-05] MEDS ORDERED: DOCUSATE SODIUM 100 MG CAPSULE (FP) PO SCH (22:00)
[2018-04-05] MEDS ORDERED: HYDROXYUREA 500 MG CAPSULE PO SCH (22:00)
[2018-04-05] MEDS ORDERED: MELATONIN 5 MG TABLETS PO PRN (22:00)
--- NOTE | 2018-04-06 00:29 | PN ---
Progress Note (short form) - Note Progress Note: Patient seen and examined 04/05/18 Feels weak Last Vital Signs Temp Pulse Resp BP Pulse Ox 98.3 F 75 20 175/103 H 100 04/06/18 07:06 04/06/18 07:06 04/06/18 07:06 04/06/18 07:06 04/05/18 18:25 Cor: RSR, No murmurs, No gallops Lungs: Clear to P&A Abd: Soft, Normal bowel sounds, No organomegaly Ext:No significant edema Abnormal Lab Results 04/04/18 04/05/18 04/06/18 20:50 05:30 06:00 WBC MCH MCHC RDW Plt Count Absolute Neuts (auto) Monocytes % (Manual) 1 L D Eosinophils % (Manual) 8.5 H D Basophils % Alkaline Phosphatase 122 H LD Total 261 H Albumin 3.0 L Prolactin 1.2 L Active Medications Generic Name Dose Route Start Last Admin Trade Name Freq PRN Reason Stop Dose Admin Albuterol/Ipratropium 1 amp 04/05/18 17:26 Duoneb - NEB Q6H PRN SHORTNESS OF BREATH Albuterol/Ipratropium 1 amp 04/05/18 20:00 04/06/18 07:46 Duoneb - NEB 1 amp RQID ROSALIE Administration Allopurinol 300 mg 04/06/18 10:00 Zyloprim - PO DAILY ROSALIE Amlodipine Besylate 2.5 mg 04/06/18 10:00 Norvasc - PO DAILY ROSALIE Aspirin 81 mg 04/05/18 22:00 04/05/18 21:03 Ecotrin - PO 81 mg BID ROSALIE Administration Clonazepam 1 mg 04/05/18 22:00 04/06/18 06:11 Klonopin - PO 1 mg TID ROSALIE Administration Docusate Sodium 300 mg 04/05/18 22:00 04/05/18 21:03 Colace - PO 300 mg HS ROSALIE Administration Furosemide 20 mg 04/06/18 10:00 Lasix - PO DAILY ROSALIE Gabapentin 400 mg 04/05/18 22:00 04/06/18 06:12 Neurontin - PO 400 mg TID ROSALIE Administration Heparin Sodium (Porcine) 5,000 unit 04/05/18 22:00 04/06/18 05:57 Heparin - SQ 5,000 unit TID ROSALIE Administration Hydroxyurea 1,000 mg 04/05/18 22:00 04/05/18 21:04 Hydrea - PO 1,000 mg HS ROSALIE Administration Hydroxyurea 500 mg 04/06/18 10:00 Hydrea - PO DAILY@1000 [facility] Sodium Chloride 1,000 mls @ 60 mls/hr 04/05/18 17:26 04/05/18 20:40 Normal Saline - IV Not Given ASDIR ROSALIE Imatinib Mesylate 400 mg 04/06/18 10:00 Gleevec (Restricted To Oncology) - PO 04/08/18 10:01 DAILY ROSALIE Levetiracetam 1,000 mg 04/05/18 22:00 04/05/18 21:05 Keppra - PO 1,000 mg BID ROSALIE Administration Levothyroxine Sodium 25 mcg 04/06/18 07:00 04/06/18 06:14 Synthroid - PO 25 mcg DAILY@0700 ROSALIE Administration Losartan Potassium 50 mg 04/06/18 10:00 Cozaar - PO DAILY [facility] Melatonin 5 mg 04/05/18 22:00 04/06/18 02:29 Melatonin PO 5 mg HS PRN Administration INSOMNIA Oxycodone HCl 7.5 mg 04/05/18 22:00 04/06/18 06:12 Roxicodone - PO 7.5 mg TID ROSALIE Administration Pantoprazole Sodium 40 mg 04/06/18 10:00 Protonix - PO DAILY [facility] Pramipexole Dihydrochloride 0.75 mg 04/05/18 22:00 04/06/18 06:12 Mirapex - PO 0.75 mg TID ROSALIE Administration Senna 1 tab 04/05/18 17:26 Senna - PO DAILY PRN CONSTIPATION Tizanidine HCl 4 mg 04/05/18 17:26 Tizanidine Hcl PO TID PRN MUSCLE SPASMS A/P 73 y/o patient with multiple comorbidities including anxiety, chronic pain,HTN, restless leg syndrome, recently diagnosed CML in 11/2017, who was lost to follow up and presented to the office from PMDS office with increasing thrombocytosis and intermittent chest pain. She had not been taking gleevec 400mg daily CML thrombocytosis-- will resume gleevec . will add hydrea until platelet count controlled gentle hydration/allopurinol recheck flowcytometry/FISH/cytogenetics continue aspirin 81mg bid Intermittent chest pain--nl enzymes/EKG
[2018-04-06] MEDS: clonazePAM 0.5 MG TABLET PO SCH ×4 (05:55→21:09)
[2018-04-06] MEDS: oxyCODONE HCL 5 MG TABLET PO SCH ×3 (05:57→15:22)
[2018-04-06] MEDS: HEPARIN NA (PORCINE) 5,000 UNITS/ML 1ML VIAL SQ SCH ×3 (05:57→21:11)
[2018-04-06] MEDS: PRAMIPEXOLE DIHYDROCHLORIDE 0.5 MG TABLET PO SCH ×4 (05:59→23:36)
[2018-04-06] MEDS: GABAPENTIN 400 MG CAPSULE (FP) PO SCH ×4 (06:01→21:10)
[2018-04-06] MEDS: LEVOTHYROXINE NA 25 MCG TABLET (FP) PO SCH ×2 (06:01→06:14)
[2018-04-06 07:31] LABS: BASO % 3.7 % (0-2.0); EOS % 4.4 % (0-4.5); HEMATOCRIT 34.6 % (32.4-45.2); HEMOGLOBIN 10.7 GM/dL (10.7-15.3); LYMPH % 21.5 % (8-40); MCHC 30.8 g/dl (32.0-36.0); MEAN CELL VOLUME 81.2 fl (80-96); MONO % 5.2 % (3.8-10.2); NEUT % 65.2 % (42.8-82.8); RBC 4.26 M/mm3 (3.60-5.2); RDW 16.5 % (11.6-15.6); WHITE BLOOD COUNT 17.7 K/mm3 (4.0-10.0)
[2018-04-06] MEDS: ALBUTEROL SO4 2.5/IPRATROPIUM 0.5 INH SOL 3 ML VIAL.NEB. NEB SCH ×5 (07:46→20:25)
[2018-04-06 08:10] LABS: PLATELET COUNT 1135 K/MM3 (134-434)
[2018-04-06 08:28] LABS: ALK PHOS 122 U/L (45-117); ANION GAP 9 MMOL/L (8-16); BILIRUBIN,TOTAL 0.2 mg/dL (0.2-1); BLOOD UREA NITROGEN 17 mg/dL (7-18); CALCIUM 8.7 mg/dL (8.5-10.1); CHLORIDE 105 mmol/L (98-107); CO2 26 mmol/L (21-32); GLUCOSE,RANDOM 77 mg/dL (74-106); LDH 261 U/L (84-246); POTASSIUM 4.9 mmol/L (3.5-5.1); SGOT/AST 28 U/L (15-37); SGPT/ALT 16 U/L (13-61); SODIUM 140 mmol/L (136-145); TOT PROT 6.5 g/dl (6.4-8.2)
[2018-04-06] MEDS ORDERED: LOSARTAN POTASSIUM 50 MG TABLET (FP) PO SCH (10:00)
[2018-04-06] MEDS ORDERED: IMATINIB MESYLATE 100 MG TABLET PO SCH (10:00)
[2018-04-06] MEDS ORDERED: PANTOPRAZOLE 40 MG TABLET (FP) PO SCH (10:00)
[2018-04-06] MEDS ORDERED: HYDROXYUREA 500 MG CAPSULE PO SCH (10:00)
[2018-04-06] MEDS ORDERED: FUROSEMIDE 20 MG TABLET (FP) PO SCH (10:00)
[2018-04-06] MEDS ORDERED: ALLOPURINOL 300 MG TABLET (FP) PO SCH (10:00)
[2018-04-06] MEDS ORDERED: amLODIPine BESYLATE 2.5 MG TABLET (FP) PO SCH (10:00)
[2018-04-06] MEDS: levETIRAcetam 500 MG TABLET (FP) PO SCH ×2 (10:04→21:10)
[2018-04-06] MEDS: ASPIRIN COATED 81 MG TABLET.EC PO SCH ×2 (10:05→21:10)
--- NOTE | 2018-04-06 13:15 | PN ---
Progress Note (short form) - Note Progress Note: PULMONARY Still some shortness of breath and reports LUQ pain. Vital Signs Period Temp Pulse Resp BP Sys/Teague Pulse Ox Last 24 Hr 97.9 F-98.3 F 64-75 18-20 156-175/74-103 100 Gen: mildly tachypneic at rest Heart: RRR Lung: decreased breath sounds at the bases Abd: soft, nontender Ext: + edema CBC, BMP 04/06/18 06:00 04/06/18 06:00 Active Medications Albuterol/Ipratropium (Duoneb -) 1 amp NEB Q6H PRN PRN Reason: SHORTNESS OF BREATH Albuterol/Ipratropium (Duoneb -) 1 amp NEB RQID [facility] Last Admin: 04/06/18 12:22 Dose: 1 amp Allopurinol (Zyloprim -) 300 mg PO DAILY [facility] Last Admin: 04/06/18 10:13 Dose: 300 mg Amlodipine Besylate (Norvasc -) 2.5 mg PO DAILY [facility] Last Admin: 04/06/18 10:04 Dose: 2.5 mg Aspirin (Ecotrin -) 81 mg PO BID [facility] Last Admin: 04/06/18 10:05 Dose: 81 mg Clonazepam (Klonopin -) 1 mg PO TID [facility] Last Admin: 04/06/18 06:11 Dose: 1 mg Docusate Sodium (Colace -) 300 mg PO HS [facility] Last Admin: 04/05/18 21:03 Dose: 300 mg Furosemide (Lasix -) 20 mg PO DAILY [facility] Last Admin: 04/06/18 10:04 Dose: 20 mg Gabapentin (Neurontin -) 400 mg PO TID [facility] Last Admin: 04/06/18 06:12 Dose: 400 mg Heparin Sodium (Porcine) (Heparin -) 5,000 unit SQ TID [facility] Last Admin: 04/06/18 05:57 Dose: 5,000 unit Hydroxyurea (Hydrea -) 1,000 mg PO HS [facility] Last Admin: 04/05/18 21:04 Dose: 1,000 mg Hydroxyurea (Hydrea -) 500 mg PO DAILY@1000 [facility] Last Admin: 04/06/18 10:10 Dose: 500 mg Sodium Chloride (Normal Saline -) 1,000 mls @ 60 mls/hr IV ASDIR [facility] Last Admin: 04/05/18 20:40 Dose: Not Given Imatinib Mesylate (Gleevec (Restricted To Oncology) -) 400 mg PO DAILY [facility] Stop: 04/08/18 10:01 Last Admin: 04/06/18 10:06 Dose: 400 mg Levetiracetam (Keppra -) 1,000 mg PO BID [facility] Last Admin: 04/06/18 10:04 Dose: 1,000 mg Levothyroxine Sodium (Synthroid -) 25 mcg PO DAILY@0700 [facility] Last Admin: 04/06/18 06:14 Dose: 25 mcg Losartan Potassium (Cozaar -) 50 mg PO DAILY [facility] Last Admin: 04/06/18 10:04 Dose: 50 mg Melatonin (Melatonin) 5 mg PO HS PRN PRN Reason: INSOMNIA Last Admin: 04/06/18 02:29 Dose: 5 mg Oxycodone HCl (Roxicodone -) 7.5 mg PO TID [facility] Last Admin: 04/06/18 06:12 Dose: 7.5 mg Pantoprazole Sodium (Protonix -) 40 mg PO DAILY [facility] Last Admin: 04/06/18 10:04 Dose: 40 mg Pramipexole Dihydrochloride (Mirapex -) 0.75 mg PO TID [facility] Last Admin: 04/06/18 06:12 Dose: 0.75 mg Senna (Senna -) 1 tab PO DAILY PRN PRN Reason: CONSTIPATION Tizanidine HCl (Tizanidine Hcl) 4 mg PO TID PRN PRN Reason: MUSCLE SPASMS Last Admin: 04/06/18 10:07 Dose: 4 mg A/P Pseudoseizures Shortness of breath PE ruled out CML Thrombocytosis 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 - O2 to keep Spo2 >90% - gleevec, hydrea per onc - inhaled bronchodilators - DVT prophylaxis Problem List - Problems (1) CML (chronic myelocytic leukemia) Code(s): C92.10 - CHRONIC MYELOID LEUK, BCR/ABL-POSITIVE, NOT ACHIEVE REMIS (2) Hypertension Code(s): I10 - ESSENTIAL (PRIMARY) HYPERTENSION (3) Thrombocytosis Code(s): D47.3 - ESSENTIAL (HEMORRHAGIC) THROMBOCYTHEMIA (4) Multiple sclerosis Code(s): G35 - MULTIPLE SCLEROSIS
--- NOTE | 2018-04-06 13:44 | RAPID ---
Addendum entered and electronically signed by Eyal Brito, RESIDENT 04/06 14:15: [facility] Original Note: <Don Nurdaniel - Last Filed: 04/06/18 13:44> Physical Examination Vital Signs: Vital Signs Temperature 98.3 F 04/06/18 07:06 Pulse Rate 75 04/06/18 07:06 Respiratory Rate 20 04/06/18 07:06 Blood Pressure 175/103 H 04/06/18 07:06 O2 Sat by Pulse Oximetry (%) 100 04/05/18 18:25 Labs: CBC, BMP 04/06/18 06:00 04/06/18 06:00 <Eyal Brito - Last Filed: 04/06/18 14:10> Physical Examination Vital Signs: Vital Signs Temperature 98.3 F 04/06/18 07:06 Pulse Rate 75 04/06/18 07:06 Respiratory Rate 20 04/06/18 07:06 Blood Pressure 175/103 H 04/06/18 07:06 O2 Sat by Pulse Oximetry (%) 100 04/05/18 18:25 Findings/Remarks: 73 year old female sent for CML treatment. Rapid response called at 1:57pm, informed that patient was noted to have her head down and not responding. On arrival, patient was foaming at the mouth, noted to have her eyes rolling to the back of her head, and not moving any of her extremities. Patient initially did not respond to verbal communication. PE vitals 171/71, 88bpm, saturating 91% RA heart: rrr/systolic murmur appreciated on exam lungs: CTA Ext: no peripheral edema Neuro: pupils responsive to light, 5/5 motor strength, patient not responding to verbal commands and is unable to complete full neurological examination A/P -patient was transferred to bed from chair, on sternal rub, patient began to flail around all 4 extremities wildly until spontaneously calming down; patient is hypercoaguable due to thrombocytosis Assessment includes: syncope, seizure, acute CVA -BM 124 -CBC -CMP -Prolactin -troponin -EKg -head Ct ordered -0.5mg ativan administered -patient appears to have begun responding to commands, will continue to f/u labs and imaging Labs: CBC, BMP 04/06/18 06:00 04/06/18 06:00
[2018-04-06] MEDS ORDERED: LORazepam 2 MG/ML SDV VIAL IVPUSH ONE (13:55)
[2018-04-06] MEDS ORDERED: LORazepam 2 MG/ML SDV VIAL ONE (13:56)
--- NOTE | 2018-04-06 14:41 | PN ---
Progress Note, Physician Chief Complaint: Pt groggy, but becomes more animated; does not remember "seizure" incident that just occurred. History of Present Illness: The patient is a 73 year old female, with a significant past medical history of right hip replacement, left knee replacement, MS, OA, CVA, CKD-III, chronic pain , and CML (diagnosed in November 2017), who presents to the emergency department with a few days of chest pain, shortness of breath and nausea sent from the office of Dr. Toledo today. The patient states her chest pain is constant and exacerbated with inspiration. She states she feels the pain to her left chest with deep breaths. She reports having diffuse body pain and tenderness for months, and reports her chest pain feeling different than her chronic pain. Dr. Toledo reportedly sent the patient for admission to restart the patient on Gleevec which the patient has not had since being sent to a [facility]. The patient is a poor historian and has no recollection of having been on Gleevac. The patient denies headache and dizziness. The patient denies fever, chills, vomit, diarrhea and constipation. The patient denies dysuria, frequency, urgency and hematuria. Allergies: Sulfa PCP - Dr. De Leon Hem/Onc: Dr. Toledo - Current Medication List Current Medications: Active Medications Albuterol/Ipratropium (Duoneb -) 1 amp NEB Q6H PRN PRN Reason: SHORTNESS OF BREATH Albuterol/Ipratropium (Duoneb -) 1 amp NEB RQID [facility] Last Admin: 04/06/18 12:22 Dose: 1 amp Allopurinol (Zyloprim -) 300 mg PO DAILY [facility] Last Admin: 04/06/18 10:13 Dose: 300 mg Amlodipine Besylate (Norvasc -) 2.5 mg PO DAILY [facility] Last Admin: 04/06/18 10:04 Dose: 2.5 mg Aspirin (Ecotrin -) 81 mg PO BID [facility] Last Admin: 04/06/18 10:05 Dose: 81 mg Clonazepam (Klonopin -) 1 mg PO TID [facility] Last Admin: 04/06/18 06:11 Dose: 1 mg Docusate Sodium (Colace -) 300 mg PO HS [facility] Last Admin: 04/05/18 21:03 Dose: 300 mg Furosemide (Lasix -) 20 mg PO DAILY [facility] Last Admin: 04/06/18 10:04 Dose: 20 mg Gabapentin (Neurontin -) 400 mg PO TID [facility] Last Admin: 04/06/18 06:12 Dose: 400 mg Heparin Sodium (Porcine) (Heparin -) 5,000 unit SQ TID [facility] Last Admin: 04/06/18 05:57 Dose: 5,000 unit Hydroxyurea (Hydrea -) 1,000 mg PO HS [facility] Last Admin: 04/05/18 21:04 Dose: 1,000 mg Hydroxyurea (Hydrea -) 500 mg PO DAILY@1000 [facility] Last Admin: 04/06/18 10:10 Dose: 500 mg Sodium Chloride (Normal Saline -) 1,000 mls @ 60 mls/hr IV ASDIR [facility] Last Admin: 04/05/18 20:40 Dose: Not Given Imatinib Mesylate (Gleevec (Restricted To Oncology) -) 400 mg PO DAILY [facility] Stop: 04/08/18 10:01 Last Admin: 04/06/18 10:06 Dose: 400 mg Levetiracetam (Keppra -) 1,000 mg PO BID [facility] Last Admin: 04/06/18 10:04 Dose: 1,000 mg Levothyroxine Sodium (Synthroid -) 25 mcg PO DAILY@0700 [facility] Last Admin: 04/06/18 06:14 Dose: 25 mcg Losartan Potassium (Cozaar -) 50 mg PO DAILY [facility] Last Admin: 04/06/18 10:04 Dose: 50 mg Melatonin (Melatonin) 5 mg PO HS PRN PRN Reason: INSOMNIA Last Admin: 04/06/18 02:29 Dose: 5 mg Oxycodone HCl (Roxicodone -) 7.5 mg PO TID [facility] Last Admin: 04/06/18 06:12 Dose: 7.5 mg Pantoprazole Sodium (Protonix -) 40 mg PO DAILY [facility] Last Admin: 04/06/18 10:04 Dose: 40 mg Pramipexole Dihydrochloride (Mirapex -) 0.75 mg PO TID [facility] Last Admin: 04/06/18 06:12 Dose: 0.75 mg Senna (Senna -) 1 tab PO DAILY PRN PRN Reason: CONSTIPATION Tizanidine HCl (Tizanidine Hcl) 4 mg PO TID PRN PRN Reason: MUSCLE SPASMS Last Admin: 04/06/18 10:07 Dose: 4 mg - Objective Vital Signs: Vital Signs Temperature 98.3 F 04/06/18 07:06 Pulse Rate 75 04/06/18 07:06 Respiratory Rate 20 04/06/18 07:06 Blood Pressure 175/103 H 04/06/18 07:06 O2 Sat by Pulse Oximetry (%) 100 04/05/18 18:25 Constitutional: Yes: Mild Distress Eyes: Yes: WNL HENT: Yes: WNL Neck: Yes: WNL Cardiovascular: Yes: S1, S2 Respiratory: Yes: Regular Gastrointestinal: Yes: Soft ...Rectal Exam: Yes: Deferred Genitourinary: No: Anuria Breast(s): Yes: WNL Musculoskeletal: Yes: Muscle Weakness Extremities: Yes: WNL Edema: No Peripheral Pulses WNL: Yes Integumentary: Yes: WNL Neurological: Yes: Lethargy Psychiatric: Yes: Other Labs: CBC, BMP 04/06/18 06:00 04/06/18 06:00 INR, PTT INR 1.09 (0.83-1.09) 04/03/18 19:11 Problem List - Problems (1) CML (chronic myelocytic leukemia) Code(s): C92.10 - CHRONIC MYELOID LEUK, BCR/ABL-POSITIVE, NOT ACHIEVE REMIS (2) Abdominal pain Code(s): R10.9 - UNSPECIFIED ABDOMINAL PAIN Qualifiers: Abdominal location: periumbilical Qualified Code(s): R10.33 - Periumbilical pain (3) Hypertension Assessment/Plan: On losartan and amlodipine. Code(s): I10 - ESSENTIAL (PRIMARY) HYPERTENSION (4) Hypothyroid Code(s): E03.9 - HYPOTHYROIDISM, UNSPECIFIED (5) UTI (urinary tract infection) Code(s): N39.0 - URINARY TRACT INFECTION, SITE NOT SPECIFIED Qualifiers: Urinary tract infection type: acute cystitis Hematuria presence: without hematuria Qualified Code(s): N30.00 - Acute cystitis without hematuria (6) Weakness Code(s): R53.1 - WEAKNESS (7) COPD exacerbation Code(s): J44.1 - CHRONIC OBSTRUCTIVE PULMONARY DISEASE W (ACUTE) EXACERBATION (8) Thrombocytosis Code(s): D47.3 - ESSENTIAL (HEMORRHAGIC) THROMBOCYTHEMIA (9) Anxiety and depression Code(s): F41.9 - ANXIETY DISORDER, UNSPECIFIED; F32.9 - MAJOR DEPRESSIVE DISORDER, SINGLE EPISODE, UNSPECIFIED (10) Seizure Assessment/Plan: Hx pseudoseizures; ? true seizure, as well. Now with event this afternoon; freortedly unresponse and shaking for about a minute before regaining consiousness. EKG: NSR: T waves, while still nonspecific, are slightly more flattened diffuselyu than on admission. F/u with neurologist. Plan for transfer to telemetry. (Pt says she had a "medications" stress test years ago, and it was a bad experience; she does not want a stress test in the future). Code(s): R56.9 - UNSPECIFIED CONVULSIONS (11) [place] cardiac risk >20% in next 10 years Assessment/Plan: For conronary artery evaluation when stable (though pt says she had a bad experience when a stress pharmacologic MIBI was done years ago, and will refuse another stress test). Code(s): Z91.89 - OTH PERSONAL RISK FACTORS, NOT ELSEWHERE CLASSIFIED
--- NOTE | 2018-04-06 14:57 | PN ---
Progress Note, Physician History of Present Illness: NAD at this time, lethargic Had Rapid Response this afternoon. Evaluated by hospitalist. Pt was sitting in a chair, when she was found by RN slumped over. Upon verbal and physical stimuli /sternal rub, pt was unresponsive. Patient was transferred to bed from chair, on sternal rub, patient began to flail around all 4 extremities wildly until spontaneously calming down. She was given Ativan 0.5 mg IVP once. RN spoke to Neuro, no further recommendations at this time. Pt being transferred to tele x 24 hours Also seen by Cardiology, no evidence of cardiac etiology Pt is being evaluated for Pseudoseizures. EEG pending, Head CT ordered by hospitalist - Current Medication List Current Medications: Active Medications Albuterol/Ipratropium (Duoneb -) 1 amp NEB Q6H PRN PRN Reason: SHORTNESS OF BREATH Albuterol/Ipratropium (Duoneb -) 1 amp NEB RQID [facility] Last Admin: 04/06/18 12:22 Dose: 1 amp Allopurinol (Zyloprim -) 300 mg PO DAILY [facility] Last Admin: 04/06/18 10:13 Dose: 300 mg Amlodipine Besylate (Norvasc -) 2.5 mg PO DAILY [facility] Last Admin: 04/06/18 10:04 Dose: 2.5 mg Aspirin (Ecotrin -) 81 mg PO BID [facility] Last Admin: 04/06/18 10:05 Dose: 81 mg Clonazepam (Klonopin -) 1 mg PO TID [facility] Last Admin: 04/06/18 06:11 Dose: 1 mg Docusate Sodium (Colace -) 300 mg PO [facility] Last Admin: 04/05/18 21:03 Dose: 300 mg Furosemide (Lasix -) 20 mg PO DAILY [facility] Last Admin: 04/06/18 10:04 Dose: 20 mg Gabapentin (Neurontin -) 400 mg PO TID [facility] Last Admin: 04/06/18 06:12 Dose: 400 mg Heparin Sodium (Porcine) (Heparin -) 5,000 unit SQ TID [facility] Last Admin: 04/06/18 05:57 Dose: 5,000 unit Hydroxyurea (Hydrea -) 1,000 mg PO HS [facility] Last Admin: 04/05/18 21:04 Dose: 1,000 mg Hydroxyurea (Hydrea -) 500 mg PO DAILY@1000 [facility] Last Admin: 10/27/18 10:10 Dose: 500 mg Sodium Chloride (Normal Saline -) 1,000 mls @ 60 mls/hr IV ASDIR [facility] Last Admin: 04/05/18 20:40 Dose: Not Given Imatinib Mesylate (Gleevec (Restricted To Oncology) -) 400 mg PO DAILY [facility] Stop: 04/08/18 10:01 Last Admin: 04/06/18 10:06 Dose: 400 mg Levetiracetam (Keppra -) 1,000 mg PO BID [facility] Last Admin: 04/06/18 10:04 Dose: 1,000 mg Levothyroxine Sodium (Synthroid -) 25 mcg PO DAILY@0700 [facility] Last Admin: 04/06/18 06:14 Dose: 25 mcg Losartan Potassium (Cozaar -) 50 mg PO DAILY [facility] Last Admin: 04/06/18 10:04 Dose: 50 mg Melatonin (Melatonin) 5 mg PO HS PRN PRN Reason: INSOMNIA Last Admin: 04/06/18 02:29 Dose: 5 mg Oxycodone HCl (Roxicodone -) 7.5 mg PO TID [facility] Last Admin: 04/06/18 06:12 Dose: 7.5 mg Pantoprazole Sodium (Protonix -) 40 mg PO DAILY [facility] Last Admin: 04/06/18 10:04 Dose: 40 mg Pramipexole Dihydrochloride (Mirapex -) 0.75 mg PO TID [facility] Last Admin: 04/06/18 06:12 Dose: 0.75 mg Senna (Senna -) 1 tab PO DAILY PRN PRN Reason: CONSTIPATION Tizanidine HCl (Tizanidine Hcl) 4 mg PO TID PRN PRN Reason: MUSCLE SPASMS Last Admin: 04/06/18 10:07 Dose: 4 mg - Objective Vital Signs: Vital Signs Temperature 98.3 F 04/06/18 07:06 Pulse Rate 75 04/06/18 07:06 Respiratory Rate 20 04/06/18 07:06 Blood Pressure 175/103 H 04/06/18 07:06 O2 Sat by Pulse Oximetry (%) 100 04/05/18 18:25 Constitutional: Yes: Well Nourished, No Distress, Calm Cardiovascular: Yes: Regular Rate and Rhythm Respiratory: Yes: Regular Gastrointestinal: Yes: Normal Bowel Sounds, Soft, Abdomen, Obese Musculoskeletal: Yes: Muscle Weakness Edema: No Peripheral Pulses WNL: Yes Neurological: Yes: Alert, Lethargy Psychiatric: Yes: Alert Labs: CBC, BMP 04/06/18 06:00 04/06/18 06:00 INR, PTT INR 1.09 (0.83-1.09) 04/03/18 19:11 Assessment/Plan see problem list
[2018-04-06] MEDS ORDERED: MELATONIN 5 MG TABLETS PO PRN (15:36)
[2018-04-06] MEDS ORDERED: ALBUTEROL SO4 2.5/IPRATROPIUM 0.5 INH SOL 3 ML VIAL.NEB. NEB PRN (15:36)
[2018-04-06] MEDS ORDERED: SENNOSIDES 8.6MG TABLET (FP) PO PRN (15:36)
[2018-04-06 15:38] LABS: ARTERIAL BLD GAS O2 SATURATION 96.1 % (90-98.9); ARTERIAL BLOOD GAS BASE EXCESS 2.2 meq/l (-2-2); ARTERIAL BLOOD GAS PCO2 37.2 mmHg (35-45); ARTERIAL BLOOD GAS pH 7.45 (7.35-7.45)
[2018-04-06] MEDS: SODIUM CHLORIDE 1,000 ML IV SCH (17:27)
[2018-04-06] MEDS: oxyCODONE HCL 5 MG TABLET PO PRN (17:29)
[2018-04-06] MEDS ORDERED: oxyCODONE HCL 5 MG TABLET PO ONE (20:53)
[2018-04-06] MEDS: HYDROXYUREA 500 MG CAPSULE PO SCH (21:09)
[2018-04-06] MEDS: DOCUSATE SODIUM 100 MG CAPSULE (FP) PO SCH (21:11)
[2018-04-06] MEDS ORDERED: oxyCODONE HCL 5 MG TABLET PO SCH (22:00)
--- NOTE | 2018-04-06 23:28 | PN ---
Progress Note (short form) - Note Progress Note: Patient seen in follow up. Complaining of pain all over, and that she's not being given analgesia. Distressed, but able to be calmed. Unusual neurological/ (?psychiatric) event earlier today noted Inpatient Meds reviewed. Current Medications Generic Name Dose Route Start Last Admin Trade Name Freq PRN Reason Stop Dose Admin Albuterol/Ipratropium 1 amp 04/06/18 15:36 Duoneb - NEB Q6H PRN SHORTNESS OF BREATH Albuterol/Ipratropium 1 amp 04/06/18 16:00 04/06/18 20:25 Duoneb - NEB 1 amp RQID [facility]IE Administration Allopurinol 300 mg 04/07/18 10:00 Zyloprim - PO DAILY ROSALIE Amlodipine Besylate 2.5 mg 04/07/18 10:00 Norvasc - PO DAILY [facility] Aspirin 81 mg 04/06/18 22:00 04/06/18 21:10 Ecotrin - PO 81 mg BID ROASLIE Administration Clonazepam 1 mg 04/06/18 22:00 04/06/18 21:09 Klonopin - PO 1 mg TID [facility]IE Administration Docusate Sodium 300 mg 04/06/18 22:00 04/06/18 21:11 Colace - PO 300 mg HS [facility] Administration Furosemide 20 mg 04/07/18 10:00 Lasix - PO DAILY [facility] Gabapentin 400 mg 04/06/18 22:00 04/06/18 21:10 Neurontin - PO 400 mg TID [facility] Administration Heparin Sodium (Porcine) 5,000 unit 04/06/18 22:00 04/06/18 21:11 Heparin - SQ 5,000 unit TID [facility] Administration Hydroxyurea 1,000 mg 04/06/18 22:00 04/06/18 21:09 Hydrea - PO 1,000 mg HS [facility] Administration Hydroxyurea 500 mg 04/07/18 10:00 Hydrea - PO DAILY@1000 ROSLAIE Sodium Chloride 1,000 mls @ 60 mls/hr 04/06/18 15:36 04/06/18 17:27 Normal Saline - IV 60 mls/hr ASDIR [facility] Administration Imatinib Mesylate 400 mg 04/07/18 10:00 Gleevec (Restricted To Oncology) - PO 04/08/18 10:01 DAILY [facility] Levetiracetam 1,000 mg 04/06/18 22:00 04/06/18 21:10 Keppra - PO 1,000 mg BID [facility] Administration Levothyroxine Sodium 25 mcg 04/07/18 07:00 Synthroid - PO DAILY@0700 [facility] Losartan Potassium 50 mg 04/07/18 10:00 Cozaar - PO DAILY [facility] Melatonin 5 mg 04/06/18 15:36 04/06/18 21:08 Melatonin PO 5 mg HS PRN Administration INSOMNIA Oxycodone HCl 7.5 mg 04/06/18 17:05 04/06/18 17:29 Roxicodone - PO 7.5 mg Q8H PRN Administration PAIN LEVEL 4 - 6 Pantoprazole Sodium 40 mg 04/07/18 10:00 Protonix - PO DAILY [facility] Pramipexole Dihydrochloride 0.75 mg 04/06/18 22:00 Mirapex - PO TID [facility] Senna 1 tab 04/06/18 15:36 Senna - PO DAILY PRN CONSTIPATION Tizanidine HCl 4 mg 04/06/18 15:36 Tizanidine Hcl PO TID PRN MUSCLE SPASMS On Examination: Last Vital Signs Temp Pulse Resp BP Pulse Ox 98.0 F 86 18 128/60 100 04/06/18 17:00 04/06/18 17:00 04/06/18 17:00 04/06/18 17:00 04/06/18 18:00 General: In no acute distress, lying comfortably in bed. Extremities: No pallor or icterus. No pedal edema. No palpable lymphadenopathy. CVS: S1, S2, regular, no gallop or murmur. Chest: good air entry bilaterally, clear Abdomen: Non-distended, non-tender, no palpable organomegaly. Neuro: Alert, oriented, non-focal. Labs: CBC, BMP 04/06/18 06:00 04/06/18 06:00 Assessment. CML recently diagnosed, was off Gleevec at hematology follow up, and noted to have thrombocytosis, and complaining of chest pain. Admitted presently to ensure compliance with TKI. Thrombocytosis marked, HU for platelet cytoreduction temporarily. ASA. Active neurological vs psychiatric syndrome - known to neurology - following.
[2018-04-07] MEDS: oxyCODONE HCL 5 MG TABLET PO PRN ×3 (03:13→17:41)
[2018-04-07] MEDS: PRAMIPEXOLE DIHYDROCHLORIDE 0.5 MG TABLET PO SCH ×3 (06:01→21:21)
[2018-04-07] MEDS: GABAPENTIN 400 MG CAPSULE (FP) PO SCH ×3 (06:02→21:20)
[2018-04-07] MEDS: LEVOTHYROXINE NA 25 MCG TABLET (FP) PO SCH (06:02)
[2018-04-07] MEDS: clonazePAM 0.5 MG TABLET PO SCH ×3 (06:03→21:19)
[2018-04-07] MEDS: HEPARIN NA (PORCINE) 5,000 UNITS/ML 1ML VIAL SQ SCH ×3 (06:04→21:19)
[2018-04-07] MEDS ORDERED: levETIRAcetam 250 MG TABLET (FP) PO ONE (08:54)
[2018-04-07] MEDS ORDERED: ACETAMINOPHEN 325 MG TABLET (FP) ONE (08:55)
[2018-04-07] MEDS ORDERED: PT OWN MED DRAWER 7, Y5N ONE ×2 (08:56→13:32)
[2018-04-07] MEDS: IMATINIB MESYLATE 100 MG TABLET PO SCH (09:04)
[2018-04-07] MEDS: PANTOPRAZOLE 40 MG TABLET (FP) PO SCH (09:05)
[2018-04-07] MEDS: ASPIRIN COATED 81 MG TABLET.EC PO SCH ×2 (09:05→21:20)
[2018-04-07] MEDS: amLODIPine BESYLATE 2.5 MG TABLET (FP) PO SCH (09:06)
[2018-04-07] MEDS: ALLOPURINOL 300 MG TABLET (FP) PO SCH (09:06)
[2018-04-07] MEDS: HYDROXYUREA 500 MG CAPSULE PO SCH ×2 (09:06→21:21)
[2018-04-07] MEDS: FUROSEMIDE 20 MG TABLET (FP) PO SCH (09:06)
[2018-04-07] MEDS: levETIRAcetam 500 MG TABLET (FP) PO SCH ×2 (09:06→21:20)
[2018-04-07] MEDS: LOSARTAN POTASSIUM 50 MG TABLET (FP) PO SCH (09:06)
[2018-04-07] MEDS: ALBUTEROL SO4 2.5/IPRATROPIUM 0.5 INH SOL 3 ML VIAL.NEB. NEB SCH ×4 (09:12→20:00)
--- NOTE | 2018-04-07 10:01 | PN ---
Progress Note, Physician Chief Complaint: Pt OOB in chair; denies diziness, palpitations, chest pain; cries when talking about her many health issues ("cancer, leukemia, RA"). History of Present Illness: The patient is a 73 year old female, with a significant past medical history of right hip replacement, left knee replacement, MS, OA, CVA, CKD-III, chronic pain , and CML (diagnosed in November 2017), who presents to the emergency department with a few days of chest pain, shortness of breath and nausea sent from the office of Dr. Toledo today. The patient states her chest pain is constant and exacerbated with inspiration. She states she feels the pain to her left chest with deep breaths. She reports having diffuse body pain and tenderness for months, and reports her chest pain feeling different than her chronic pain. Dr. Toledo reportedly sent the patient for admission to restart the patient on Gleevec which the patient has not had since being sent to a retirement. The patient is a poor historian and has no recollection of having been on Gleevac. The patient denies headache and dizziness. The patient denies fever, chills, vomit, diarrhea and constipation. The patient denies dysuria, frequency, urgency and hematuria. Allergies: Sulfa PCP - Dr. De Leon Hem/Onc: Dr. Toledo - Current Medication List Current Medications: Active Medications Albuterol/Ipratropium (Duoneb -) 1 amp NEB Q6H PRN PRN Reason: SHORTNESS OF BREATH Albuterol/Ipratropium (Duoneb -) 1 amp NEB RQID [facility] Last Admin: 04/07/18 09:12 Dose: 1 amp Allopurinol (Zyloprim -) 300 mg PO DAILY [facility] Last Admin: 04/07/18 09:06 Dose: 300 mg Amlodipine Besylate (Norvasc -) 2.5 mg PO DAILY [facility] Last Admin: 04/07/18 09:06 Dose: 2.5 mg Aspirin (Ecotrin -) 81 mg PO BID [facility] Last Admin: 04/07/18 09:05 Dose: 81 mg Clonazepam (Klonopin -) 1 mg PO TID [facility] Last Admin: 04/07/18 06:03 Dose: 1 mg Docusate Sodium (Colace -) 300 mg PO HS [facility] Last Admin: 04/06/18 21:11 Dose: 300 mg Furosemide (Lasix -) 20 mg PO DAILY [facility] Last Admin: 04/07/18 09:06 Dose: 20 mg Gabapentin (Neurontin -) 400 mg PO TID [facility] Last Admin: 04/07/18 06:02 Dose: 400 mg Heparin Sodium (Porcine) (Heparin -) 5,000 unit SQ TID [facility] Last Admin: 04/07/18 06:04 Dose: 5,000 unit Hydroxyurea (Hydrea -) 1,000 mg PO HS [facility] Last Admin: 04/06/18 21:09 Dose: 1,000 mg Hydroxyurea (Hydrea -) 500 mg PO DAILY@1000 [facility] Last Admin: 04/07/18 09:06 Dose: 500 mg Sodium Chloride (Normal Saline -) 1,000 mls @ 60 mls/hr IV ASDIR [facility] Last Admin: 04/06/18 17:27 Dose: 60 mls/hr Imatinib Mesylate (Gleevec (Restricted To Oncology) -) 400 mg PO DAILY [facility] Stop: 04/08/18 10:01 Last Admin: 04/07/18 09:04 Dose: 400 mg Levetiracetam (Keppra -) 1,000 mg PO BID [facility] Last Admin: 04/07/18 09:06 Dose: 1,000 mg Levothyroxine Sodium (Synthroid -) 25 mcg PO DAILY@0700 [facility] Last Admin: 04/07/18 06:02 Dose: 25 mcg Losartan Potassium (Cozaar -) 50 mg PO DAILY [facility] Last Admin: 04/07/18 09:06 Dose: 50 mg Melatonin (Melatonin) 5 mg PO HS PRN PRN Reason: INSOMNIA Last Admin: 04/06/18 21:08 Dose: 5 mg Oxycodone HCl (Roxicodone -) 7.5 mg PO Q8H PRN PRN Reason: PAIN LEVEL 4 - 6 Last Admin: 04/07/18 09:07 Dose: 7.5 mg Pantoprazole Sodium (Protonix -) 40 mg PO DAILY [facility] Last Admin: 04/07/18 09:05 Dose: 40 mg Pramipexole Dihydrochloride (Mirapex -) 0.75 mg PO TID [facility] Last Admin: 04/07/18 06:01 Dose: 0.75 mg Senna (Senna -) 1 tab PO DAILY PRN PRN Reason: CONSTIPATION Tizanidine HCl (Tizanidine Hcl) 4 mg PO TID PRN PRN Reason: MUSCLE SPASMS - Objective Vital Signs: Vital Signs Temperature 98.5 F 04/07/18 07:37 Pulse Rate 73 04/07/18 07:37 Respiratory Rate 20 04/07/18 07:40 Blood Pressure 132/56 L 04/07/18 07:37 O2 Sat by Pulse Oximetry (%) 100 04/07/18 07:40 Constitutional: Yes: Anxious Eyes: Yes: WNL HENT: Yes: WNL Neck: Yes: WNL Cardiovascular: Yes: Pulse Irregular Respiratory: Yes: WNL Gastrointestinal: Yes: Soft Labs: CBC, BMP 04/06/18 06:00 04/06/18 06:00 INR, PTT INR 1.09 (0.83-1.09) 04/03/18 19:11 Problem List - Problems (1) CML (chronic myelocytic leukemia) Code(s): C92.10 - CHRONIC MYELOID LEUK, BCR/ABL-POSITIVE, NOT ACHIEVE REMIS (2) Abdominal pain Code(s): R10.9 - UNSPECIFIED ABDOMINAL PAIN Qualifiers: Abdominal location: periumbilical Qualified Code(s): R10.33 - Periumbilical pain (3) Hypertension Assessment/Plan: On losartan, furesemide, and amlodipine. Code(s): I10 - ESSENTIAL (PRIMARY) HYPERTENSION (4) Hypothyroid Assessment/Plan: on levothyroxine; TSH wsnl. Code(s): E03.9 - HYPOTHYROIDISM, UNSPECIFIED (5) UTI (urinary tract infection) Code(s): N39.0 - URINARY TRACT INFECTION, SITE NOT SPECIFIED Qualifiers: Urinary tract infection type: acute cystitis Hematuria presence: without hematuria Qualified Code(s): N30.00 - Acute cystitis without hematuria (6) Weakness Code(s): R53.1 - WEAKNESS (7) COPD exacerbation Code(s): J44.1 - CHRONIC OBSTRUCTIVE PULMONARY DISEASE W (ACUTE) EXACERBATION (8) Thrombocytosis Code(s): D47.3 - ESSENTIAL (HEMORRHAGIC) THROMBOCYTHEMIA (9) Anxiety and depression Code(s): F41.9 - ANXIETY DISORDER, UNSPECIFIED; F32.9 - MAJOR DEPRESSIVE DISORDER, SINGLE EPISODE, UNSPECIFIED (10) Seizure Assessment/Plan: On Keppra. F/u with neurologist. EKG (sitting in chair): NSR: nonspecific T wave changes. Telemetry: NSR; sinus arrhythmia, ?rate-dependant BBB; APCs, Code(s): R56.9 - UNSPECIFIED CONVULSIONS (11) [place] cardiac risk >20% in next 10 years Assessment/Plan: For conronary artery evaluation when stable (though pt says she had a bad experience when a stress pharmacologic MIBI was done years ago, and will refuse another stress test). Code(s): Z91.89 - OTH PERSONAL RISK FACTORS, NOT ELSEWHERE CLASSIFIED (12) SVT (supraventricular tachycardia) Assessment/Plan: Telemetry: NSR; sinus arrhythmia; brief runs of PSVT. Follow up electrolytes. Consider beta abiodun. Code(s): I47.1 - SUPRAVENTRICULAR TACHYCARDIA
--- NOTE | 2018-04-07 12:28 | PN ---
Progress Note, Physician - Current Medication List Current Medications: Active Medications Albuterol/Ipratropium (Duoneb -) 1 amp NEB Q6H PRN PRN Reason: SHORTNESS OF BREATH Albuterol/Ipratropium (Duoneb -) 1 amp NEB RQID [facility] Last Admin: 04/07/18 09:12 Dose: 1 amp Allopurinol (Zyloprim -) 300 mg PO DAILY [facility] Last Admin: 04/07/18 09:06 Dose: 300 mg Amlodipine Besylate (Norvasc -) 2.5 mg PO DAILY [facility] Last Admin: 04/07/18 09:06 Dose: 2.5 mg Aspirin (Ecotrin -) 81 mg PO BID [facility] Last Admin: 04/07/18 09:05 Dose: 81 mg Clonazepam (Klonopin -) 1 mg PO TID [facility] Last Admin: 04/07/18 06:03 Dose: 1 mg Docusate Sodium (Colace -) 300 mg PO [facility] Last Admin: 04/06/18 21:11 Dose: 300 mg Furosemide (Lasix -) 20 mg PO DAILY [facility] Last Admin: 04/07/18 09:06 Dose: 20 mg Gabapentin (Neurontin -) 400 mg PO TID [facility] Last Admin: 04/07/18 06:02 Dose: 400 mg Heparin Sodium (Porcine) (Heparin -) 5,000 unit SQ TID [facility] Last Admin: 04/07/18 06:04 Dose: 5,000 unit Hydroxyurea (Hydrea -) 1,000 mg PO HS [facility] Last Admin: 04/06/18 21:09 Dose: 1,000 mg Hydroxyurea (Hydrea -) 500 mg PO DAILY@1000 [facility] Last Admin: 04/07/18 09:06 Dose: 500 mg Sodium Chloride (Normal Saline -) 1,000 mls @ 60 mls/hr IV ASDIR [facility] Last Admin: 04/06/18 17:27 Dose: 60 mls/hr Imatinib Mesylate (Gleevec (Restricted To Oncology) -) 400 mg PO DAILY [facility] Stop: 04/08/18 10:01 Last Admin: 04/07/18 09:04 Dose: 400 mg Levetiracetam (Keppra -) 1,000 mg PO BID [facility] Last Admin: 04/07/18 09:06 Dose: 1,000 mg Levothyroxine Sodium (Synthroid -) 25 mcg PO DAILY@0700 [facility] Last Admin: 04/07/18 06:02 Dose: 25 mcg Losartan Potassium (Cozaar -) 50 mg PO DAILY [facility] Last Admin: 04/07/18 09:06 Dose: 50 mg Melatonin (Melatonin) 5 mg PO HS PRN PRN Reason: INSOMNIA Last Admin: 04/06/18 21:08 Dose: 5 mg Oxycodone HCl (Roxicodone -) 7.5 mg PO Q8H PRN PRN Reason: PAIN LEVEL 4 - 6 Last Admin: 04/07/18 09:07 Dose: 7.5 mg Pantoprazole Sodium (Protonix -) 40 mg PO DAILY [facility] Last Admin: 04/07/18 09:05 Dose: 40 mg Pramipexole Dihydrochloride (Mirapex -) 0.75 mg PO TID [facility] Last Admin: 04/07/18 06:01 Dose: 0.75 mg Senna (Senna -) 1 tab PO DAILY PRN PRN Reason: CONSTIPATION Tizanidine HCl (Tizanidine Hcl) 4 mg PO TID PRN PRN Reason: MUSCLE SPASMS - Objective Vital Signs: Vital Signs Temperature 98.5 F 04/07/18 07:37 Pulse Rate 73 04/07/18 07:37 Respiratory Rate 20 04/07/18 07:40 Blood Pressure 132/56 L 04/07/18 07:37 O2 Sat by Pulse Oximetry (%) 100 04/07/18 07:40 Constitutional: Yes: Well Nourished, No Distress, Anxious Cardiovascular: Yes: Regular Rate and Rhythm Respiratory: Yes: Regular Gastrointestinal: Yes: Normal Bowel Sounds, Soft, Abdomen, Obese Musculoskeletal: Yes: Muscle Weakness Edema: No Peripheral Pulses WNL: Yes Neurological: Yes: Alert, Pre-Existing Deficit Psychiatric: Yes: Alert Labs: CBC, BMP 04/06/18 06:00 04/06/18 06:00 INR, PTT INR 1.09 (0.83-1.09) 04/03/18 19:11 Problem List - Problems (1) Seizure Code(s): R56.9 - UNSPECIFIED CONVULSIONS (2) CML (chronic myelocytic leukemia) Code(s): C92.10 - CHRONIC MYELOID LEUK, BCR/ABL-POSITIVE, NOT ACHIEVE REMIS (3) Anxiety and depression Code(s): F41.9 - ANXIETY DISORDER, UNSPECIFIED; F32.9 - MAJOR DEPRESSIVE DISORDER, SINGLE EPISODE, UNSPECIFIED
--- NOTE | 2018-04-07 13:21 | PN ---
Progress Note (short form) - Note Progress Note: PULMONARY Still with occasional chest pain. No shortness of breath Vital Signs Period Temp Pulse Resp BP Sys/Teague Pulse Ox Last 24 Hr 98.0 F-98.5 F 60-99 16-20 119-188/52-86 100-100 Gen: NAD in chair Heart: RRR Lung: decreased breath sounds at the bases Abd: soft, nontender Ext: + edema CBC, BMP 04/06/18 06:00 04/06/18 06:00 Active Medications Albuterol/Ipratropium (Duoneb -) 1 amp NEB Q6H PRN PRN Reason: SHORTNESS OF BREATH Albuterol/Ipratropium (Duoneb -) 1 amp NEB RQID [facility] Last Admin: 04/07/18 12:49 Dose: 1 amp Allopurinol (Zyloprim -) 300 mg PO DAILY [facility] Last Admin: 04/07/18 09:06 Dose: 300 mg Amlodipine Besylate (Norvasc -) 2.5 mg PO DAILY [facility] Last Admin: 04/07/18 09:06 Dose: 2.5 mg Aspirin (Ecotrin -) 81 mg PO BID [facility] Last Admin: 04/07/18 09:05 Dose: 81 mg Clonazepam (Klonopin -) 1 mg PO TID [facility] Last Admin: 04/07/18 06:03 Dose: 1 mg Docusate Sodium (Colace -) 300 mg PO HS [facility] Last Admin: 04/06/18 21:11 Dose: 300 mg Furosemide (Lasix -) 20 mg PO DAILY [facility] Last Admin: 04/07/18 09:06 Dose: 20 mg Gabapentin (Neurontin -) 400 mg PO TID [facility] Last Admin: 04/07/18 06:02 Dose: 400 mg Heparin Sodium (Porcine) (Heparin -) 5,000 unit SQ TID [facility] Last Admin: 04/07/18 06:04 Dose: 5,000 unit Hydroxyurea (Hydrea -) 1,000 mg PO HS [facility] Last Admin: 04/06/18 21:09 Dose: 1,000 mg Hydroxyurea (Hydrea -) 500 mg PO DAILY@1000 [facility] Last Admin: 04/07/18 09:06 Dose: 500 mg Sodium Chloride (Normal Saline -) 1,000 mls @ 60 mls/hr IV ASDIR [facility] Last Admin: 04/06/18 17:27 Dose: 60 mls/hr Imatinib Mesylate (Gleevec (Restricted To Oncology) -) 400 mg PO DAILY [facility] Stop: 04/08/18 10:01 Last Admin: 04/07/18 09:04 Dose: 400 mg Levetiracetam (Keppra -) 1,000 mg PO BID [facility] Last Admin: 04/07/18 09:06 Dose: 1,000 mg Levothyroxine Sodium (Synthroid -) 25 mcg PO DAILY@0700 [facility] Last Admin: 04/07/18 06:02 Dose: 25 mcg Losartan Potassium (Cozaar -) 50 mg PO DAILY [facility] Last Admin: 04/07/18 09:06 Dose: 50 mg Melatonin (Melatonin) 5 mg PO HS PRN PRN Reason: INSOMNIA Last Admin: 04/06/18 21:08 Dose: 5 mg Oxycodone HCl (Roxicodone -) 7.5 mg PO Q8H PRN PRN Reason: PAIN LEVEL 4 - 6 Last Admin: 04/07/18 09:07 Dose: 7.5 mg Pantoprazole Sodium (Protonix -) 40 mg PO DAILY [facility] Last Admin: 04/07/18 09:05 Dose: 40 mg Pramipexole Dihydrochloride (Mirapex -) 0.75 mg PO TID [facility] Last Admin: 04/07/18 06:01 Dose: 0.75 mg Senna (Senna -) 1 tab PO DAILY PRN PRN Reason: CONSTIPATION Tizanidine HCl (Tizanidine Hcl) 4 mg PO TID PRN PRN Reason: MUSCLE SPASMS A/P Pseudoseizures Shortness of breath PE ruled out CML Thrombocytosis 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 - O2 to keep Spo2 >90% - gleevec, hydrea per onc - inhaled bronchodilators - DVT prophylaxis Problem List - Problems (1) CML (chronic myelocytic leukemia) Code(s): C92.10 - CHRONIC MYELOID LEUK, BCR/ABL-POSITIVE, NOT ACHIEVE REMIS (2) Hypertension Code(s): I10 - ESSENTIAL (PRIMARY) HYPERTENSION (3) Thrombocytosis Code(s): D47.3 - ESSENTIAL (HEMORRHAGIC) THROMBOCYTHEMIA (4) Multiple sclerosis Code(s): G35 - MULTIPLE SCLEROSIS
--- NOTE | 2018-04-07 13:54 | EKG ---
Test Reason : Blood Pressure : / mmHG Vent. Rate : 079 BPM Atrial Rate : 079 BPM P-R Int : 136 ms QRS Dur : 084 ms QT Int : 412 ms P-R-T Axes : 068 075 084 degrees QTc Int : 472 ms NORMAL SINUS RHYTHM NONSPECIFIC T WAVE ABNORMALITY ABNORMAL ECG WHEN COMPARED WITH ECG OF 06-APR-2018 14:16, PREMATURE VENTRICULAR COMPLEXES ARE NO LONGER PRESENT PATIENT SITTING IN CHAIR DURING EKG Confirmed by MD Treva, Alvarado ([id number]) on 04/07/2018 1:54:08 PM Referred By: Akil LONDONO Confirmed By:Alvarado Tilley MD
--- NOTE | 2018-04-07 14:03 | EKG ---
Test Reason : Blood Pressure : / mmHG Vent. Rate : 082 BPM Atrial Rate : 082 BPM P-R Int : 132 ms QRS Dur : 082 ms QT Int : 400 ms P-R-T Axes : 073 075 085 degrees QTc Int : 467 ms SINUS RHYTHM WITH OCCASIONAL PREMATURE VENTRICULAR COMPLEXES NONSPECIFIC T WAVE ABNORMALITY ABNORMAL ECG NONSPECIFIC T WAVE ABNORMALITY, WORSE IN LATERAL LEADS Confirmed by MD Tilley Edward ([id number]) on 04/07/2018 2:03:24 PM Referred By: Confirmed By:Alvarado Tilley MD
[2018-04-07] MEDS: SODIUM CHLORIDE 1,000 ML IV SCH (16:57)
--- NOTE | 2018-04-07 20:41 | CONSULT ---
Consult Consult Specialty:: endocrine Referred by:: ifeoma bains np Reason for Consultation:: diabetes mellitus - History of Present Illness Chief Complaint: high sugars History of Present Illness: dm,htn ashd,thyroid neoplasm,ms,ashd,cml,has not been compliant with medical therapy,had cp and recurrence of thrombocytosis requiring admission for cad and dyspnea - Past Medical History CORE WINDER: Yes: 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 Cardio/Vascular: Yes: HTN Pulmonary: Yes: Asthma, COPD Gastrointestinal: Yes: GERD (using walker at home ) Renal/: Yes: Renal Inusuff ...: No Psych: Yes: Depression Musculoskeletal: Yes: Osteoarthritis, Other (DDD) Rheumatology: Yes: Rheumatoid Arthritis Endocrine: Yes: Diabetes Mellitus Additional Medical History: as in HPI, morbidly obese - Past Surgical History Past Surgical History: Yes: Cholecystectomy, Hysterectomy (TIMBO/BSO), Joint Replacement (Right THR, Left TKR) Additional Surgical History: hysterectomy. R THR. L TKR. 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 Travel: No Home Medications - Allergies Allergies/Adverse Reactions: Allergies Allergy/AdvReac Type Severity Reaction Status Date / Time Sulfa (Sulfonamide Allergy Severe Hives Verified 02/04/18 10:36 Antibiotics) - Home Medications Home Medications: Ambulatory Orders Amlodipine Besylate [Norvasc -] 2.5 mg PO DAILY 09/03/15 Sennosides [Senna] 8.6 mg PO DAILY PRN 09/03/15 Aspirin Coated [Ecotrin -] 81 mg PO DAILY #30 tablet.ec 09/10/15 Docusate Sodium [Colace -] 300 mg PO HS #30 capsule 09/10/15 Furosemide [Lasix -] 20 mg PO DAILY #30 tablet 09/10/15 Losartan Potassium [Cozaar -] 50 mg PO DAILY #30 tablet 09/10/15 clonazePAM [KlonoPIN -] 0.5 mg PO BID 11/06/17 Imatinib Mesylate [Gleevec (Nf) -] 400 mg PO DAILY #30 tablet 11/20/17 Levothyroxine [Synthroid -] 25 mcg PO DAILY@0700 #30 tablet 11/20/17 Pramipexole Dihydrochloride [Mirapex -] 0.5 mg PO TID tablet 11/20/17 levETIRAcetam [Keppra -] 1,000 mg PO BID #120 tablet 11/20/17 Tizanidine HCl [Zanaflex] 4 mg PO TID PRN #90 tablet 02/15/18 Gabapentin [Neurontin -] 400 mg PO Q8H #90 capsule 03/13/18 Hydrocodone/Acetaminophen [[place] 10-325 Tablet] 1 each PO TID PRN #90 tablet MDD 3 03/13/18 Esomeprazole Magnesium [Nexium 24Hr] 40 mg PO DAILY 04/04/18 Interferon Beta-1A [Avonex] 30 mcg IM WEEKLY 04/04/18 Family Disease History - Family Disease History Family Disease History: [place]: Mother (, cancer, unclear type), Other: Father ( - cancer, unclear type), Brother (1, pain - arthritis), Sister (four sisters - little contact), Son (one living healthy), Daughter (one living healthy) Review of Systems - Review of Systems Constitutional: reports: Lethargy, Weakness Eyes: reports: No Symptoms HENT: reports: No Symptoms Neck: reports: Pain on Movement Cardiovascular: reports: Shortness of Breath Respiratory: reports: Exercise Intolerance, SOB on Exertion Gastrointestinal: reports: Bloating Genitourinary: reports: Frequency Breasts: reports: No Symptoms Reported Musculoskeletal: reports: Joint Pain, Joint Swelling, Muscle Pain, Muscle Cramps Neurological: reports: Unsteady Gait, Weakness Endocrine: reports: Unexplained Weight Gain Physical Exam Vital Signs: Vital Signs Temperature 98.0 F 04/07/18 17:00 Pulse Rate 83 04/07/18 17:00 Respiratory Rate 18 04/07/18 17:00 Blood Pressure 144/57 L 04/07/18 17:00 O2 Sat by Pulse Oximetry (%) 100 04/07/18 07:40 Constitutional: Yes: Anxious Eyes: Yes: EOM Intact HENT: Yes: Normocephalic Neck: Yes: Trachea Midline Cardiovascular: Yes: Regular Rate and Rhythm Respiratory: Yes: CTA Bilaterally Gastrointestinal: Yes: Normal Bowel Sounds ...Rectal Exam: Yes: Deferred Renal/: Yes: WNL Breast(s): Yes: WNL Musculoskeletal: Yes: Muscle Pain, Muscle Weakness Extremities: Yes: Erythema Edema: No Integumentary: Yes: WNL Neurological: Yes: Alert, Oriented Labs: CBC, BMP 04/06/18 06:00 04/06/18 06:00 Problem List - Problems (1) Diabetes mellitus with hyperosmolarity Code(s): E11.00 - TYPE 2 DIAB W HYPROSM W/O NONKET HYPRGLY-HYPROS COMA (N[facility]) (2) Chest pain Code(s): R07.9 - CHEST PAIN, UNSPECIFIED (3) [place] cardiac risk >20% in next 10 years Code(s): Z91.89 - OT PERSONAL RISK FACTORS, NOT ELSEWHERE CLASSIFIED (4) Restless leg syndrome Code(s): G25.81 - RESTLESS LEGS SYNDROME (5) SVT (supraventricular tachycardia) Code(s): I47.1 - SUPRAVENTRICULAR TACHYCARDIA (6) CML (chronic myelocytic leukemia) Code(s): C92.10 - CHRONIC MYELOID LEUK, BCR/ABL-POSITIVE, NOT ACHIEVE REMIS (7) Abnormal antibody titer Code(s): R76.8 - OTHER SPECIFIED ABNORMAL IMMUNOLOGICAL FINDINGS IN SERUM Assessment/Plan Current Active Problems Chest pain (Acute) [place] cardiac risk >20% in next 10 years (Acute) Restless leg syndrome (Acute) SVT (supraventricular tachycardia) (Acute) Seizure (Acute) CML (chronic myelocytic leukemia) (Chronic) diabetes mellitus hyperglycemia Abnormal Lab Results 04/06/18 14:09 Prolactin 0.6 L Abnormal Lab Results Laboratory Results - last 24 hr Laboratory Tests 11/02/17 04/03/18 04/06/18 11:00 19:00 06:00 WBC RBC Hgb Hct MCV MCH MCHC RDW Plt Count Sodium 140 Potassium 4.9 Chloride 105 Carbon Dioxide 26 Anion Gap 9 BUN 17 Creatinine 1.0 Creat Clearance w eGFR 54.35 POC Glucometer Random Glucose 77 Hemoglobin A1c % 4.9 TSH 0.53 04/06/18 04/06/18 06:00 13:42 WBC 17.7 H RBC 4.26 Hgb 10.7 Hct 34.6 MCV 81.2 MCH 25.0 L MCHC 30.8 L RDW 16.5 H Plt Count 1135 H Sodium Potassium Chloride Carbon Dioxide Anion Gap BUN Creatinine Creat Clearance w eGFR POC Glucometer 124 Random Glucose Hemoglobin A1c % TSH plan: bgm tid ac synthroid 25mcg daily await cardiac workup
[2018-04-07] MEDS: DOCUSATE SODIUM 100 MG CAPSULE (FP) PO SCH (21:20)
--- NOTE | 2018-04-07 22:07 | PN ---
Progress Note (short form) - Note Progress Note: Patient seen in follow up. More calm and less distressed than yesterday. Inpatient Meds reviewed. Current Medications Generic Name Dose Route Start Last Admin Trade Name Freq PRN Reason Stop Dose Admin Albuterol/Ipratropium 1 amp 04/06/18 15:36 Duoneb - NEB Q6H PRN SHORTNESS OF BREATH Albuterol/Ipratropium 1 amp 04/06/18 16:00 04/07/18 16:35 Duoneb - NEB 1 amp RQID [facility] Administration Allopurinol 300 mg 04/07/18 10:00 04/07/18 09:06 Zyloprim - PO 300 mg DAILY [facility] Administration Amlodipine Besylate 2.5 mg 04/07/18 10:00 04/07/18 09:06 Norvasc - PO 2.5 mg DAILY [facility] Administration Aspirin 81 mg 04/06/18 22:00 04/07/18 21:20 Ecotrin - PO 81 mg BID [facility] Administration Clonazepam 1 mg 04/06/18 22:00 04/07/18 21:19 Klonopin - PO 1 mg TID [facility] Administration Docusate Sodium 300 mg 04/06/18 22:00 04/07/18 21:20 Colace - PO 300 mg HS [facility] Administration Furosemide 20 mg 04/07/18 10:00 04/07/18 09:06 Lasix - PO 20 mg DAILY [facility] Administration Gabapentin 400 mg 04/06/18 22:00 04/07/18 21:20 Neurontin - PO 400 mg TID [facility] Administration Heparin Sodium (Porcine) 5,000 unit 04/06/18 22:00 04/07/18 21:19 Heparin - SQ 5,000 unit TID [facility] Administration Hydroxyurea 1,000 mg 04/06/18 22:00 04/07/18 21:21 Hydrea - PO 1,000 mg HS [facility] Administration Hydroxyurea 500 mg 04/07/18 10:00 04/07/18 09:06 Hydrea - PO 500 mg DAILY@1000 [facility] Administration Imatinib Mesylate 400 mg 04/07/18 10:00 04/07/18 09:04 Gleevec (Restricted To Oncology) - PO 04/08/18 10:01 400 mg DAILY [facility] Administration Levetiracetam 1,000 mg 04/06/18 22:00 04/07/18 21:20 Keppra - PO 1,000 mg BID [facility] Administration Levothyroxine Sodium 25 mcg 04/07/18 07:00 04/07/18 06:02 Synthroid - PO 25 mcg DAILY@0700 [facility] Administration Losartan Potassium 50 mg 04/07/18 10:00 04/07/18 09:06 Cozaar - PO 50 mg DAILY [facility] Administration Melatonin 5 mg 04/06/18 15:36 04/06/18 21:08 Melatonin PO 5 mg HS PRN Administration INSOMNIA Oxycodone HCl 7.5 mg 04/06/18 17:05 04/07/18 17:41 Roxicodone - PO 7.5 mg Q8H PRN Administration PAIN LEVEL 4 - 6 Pantoprazole Sodium 40 mg 04/07/18 10:00 04/07/18 09:05 Protonix - PO 40 mg DAILY [facility] Administration Pramipexole Dihydrochloride 0.75 mg 04/06/18 22:00 04/07/18 21:21 Mirapex - PO 0.75 mg TID [facility] Administration Senna 1 tab 04/06/18 15:36 Senna - PO DAILY PRN CONSTIPATION Tizanidine HCl 4 mg 04/06/18 15:36 Tizanidine Hcl PO TID PRN MUSCLE SPASMS On Examination: Last Vital Signs Temp Pulse Resp BP Pulse Ox 98.0 F 83 18 144/57 L 100 04/07/18 17:00 04/07/18 17:00 04/07/18 17:00 04/07/18 17:00 04/07/18 07:40 General: In no acute distress, sitting in chair. Extremities: No pallor or icterus. No pedal edema. No palpable lymphadenopathy. CVS: S1, S2, regular, no gallop or murmur. Chest: good air entry bilaterally, clear Abdomen: Non-distended, non-tender, no palpable organomegaly. Neuro: Alert, oriented, non-focal. Labs: No labwork available for today CBC, BMP 04/06/18 06:00 04/06/18 06:00 Assessment. CML recently diagnosed, was off Gleevec at hematology follow up, and noted to have thrombocytosis, and complaining of chest pain. Admitted presently to ensure compliance with TKI. Thrombocytosis marked, HU for platelet cytoreduction temporarily. ASA. Active neurological vs psychiatric syndrome - known to neurology - following.
[2018-04-08] MEDS: HEPARIN NA (PORCINE) 5,000 UNITS/ML 1ML VIAL SQ SCH ×3 (05:25→21:46)
[2018-04-08] MEDS: PRAMIPEXOLE DIHYDROCHLORIDE 0.5 MG TABLET PO SCH (05:25)
[2018-04-08] MEDS: clonazePAM 0.5 MG TABLET PO SCH ×3 (05:25→21:39)
[2018-04-08] MEDS: GABAPENTIN 400 MG CAPSULE (FP) PO SCH ×3 (05:25→21:46)
[2018-04-08] MEDS: LEVOTHYROXINE NA 25 MCG TABLET (FP) PO SCH (06:18)
[2018-04-08] MEDS: ALBUTEROL SO4 2.5/IPRATROPIUM 0.5 INH SOL 3 ML VIAL.NEB. NEB SCH ×4 (07:59→21:00)
[2018-04-08] MEDS ORDERED: PT OWN MED DRAWER 7, Y5N ONE ×3 (08:24→21:00)
--- NOTE | 2018-04-08 08:56 | PN ---
Progress Note, Physician Chief Complaint: Seen and examined. Sitting up in bed, eating breakfast. Denies SOB. Some discomfort under left breast, worse with change of position - Current Medication List Current Medications: Active Medications Albuterol/Ipratropium (Duoneb -) 1 amp NEB Q6H PRN PRN Reason: SHORTNESS OF BREATH Albuterol/Ipratropium (Duoneb -) 1 amp NEB RQID [facility] Last Admin: 04/08/18 07:59 Dose: 1 amp Allopurinol (Zyloprim -) 300 mg PO DAILY [facility] Last Admin: 04/07/18 09:06 Dose: 300 mg Amlodipine Besylate (Norvasc -) 2.5 mg PO DAILY [facility] Last Admin: 04/07/18 09:06 Dose: 2.5 mg Aspirin (Ecotrin -) 81 mg PO BID [facility] Last Admin: 04/07/18 21:20 Dose: 81 mg Clonazepam (Klonopin -) 1 mg PO TID [facility] Last Admin: 04/08/18 05:25 Dose: 1 mg Docusate Sodium (Colace -) 300 mg PO [facility] Last Admin: 04/07/18 21:20 Dose: 300 mg Furosemide (Lasix -) 20 mg PO DAILY [facility] Last Admin: 04/07/18 09:06 Dose: 20 mg Gabapentin (Neurontin -) 400 mg PO TID [facility] Last Admin: 04/08/18 05:25 Dose: 400 mg Heparin Sodium (Porcine) (Heparin -) 5,000 unit SQ TID [facility] Last Admin: 04/08/18 05:25 Dose: 5,000 unit Hydroxyurea (Hydrea -) 1,000 mg PO HS [facility] Last Admin: 04/07/18 21:21 Dose: 1,000 mg Hydroxyurea (Hydrea -) 500 mg PO DAILY@1000 [facility] Last Admin: 04/07/18 09:06 Dose: 500 mg Imatinib Mesylate (Gleevec (Restricted To Oncology) -) 400 mg PO DAILY [facility] Stop: 04/08/18 10:01 Last Admin: 04/07/18 09:04 Dose: 400 mg Levetiracetam (Keppra -) 1,000 mg PO BID [facility] Last Admin: 04/07/18 21:20 Dose: 1,000 mg Levothyroxine Sodium (Synthroid -) 25 mcg PO DAILY@0700 [facility] Last Admin: 04/08/18 06:18 Dose: 25 mcg Losartan Potassium (Cozaar -) 50 mg PO DAILY [facility] Last Admin: 04/07/18 09:06 Dose: 50 mg Melatonin (Melatonin) 5 mg PO HS PRN PRN Reason: INSOMNIA Last Admin: 04/06/18 21:08 Dose: 5 mg Oxycodone HCl (Roxicodone -) 7.5 mg PO Q8H PRN PRN Reason: PAIN LEVEL 4 - 6 Last Admin: 04/07/18 17:41 Dose: 7.5 mg Pantoprazole Sodium (Protonix -) 40 mg PO DAILY [facility] Last Admin: 04/07/18 09:05 Dose: 40 mg Pramipexole Dihydrochloride 0. 25 mg/ Pramipexole Dihydrochloride 0.5 mg 0.75 mg PO TID [facility] Senna (Senna -) 1 tab PO DAILY PRN PRN Reason: CONSTIPATION Tizanidine HCl (Tizanidine Hcl) 4 mg PO TID PRN PRN Reason: MUSCLE SPASMS - Objective Vital Signs: Vital Signs Temperature 98.3 F 04/08/18 07:46 Pulse Rate 81 04/08/18 07:46 Respiratory Rate 18 04/08/18 07:46 Blood Pressure 124/67 04/08/18 07:46 O2 Sat by Pulse Oximetry (%) 94 L 04/08/18 07:46 Constitutional: Yes: No Distress, Calm Eyes: Yes: Conjunctiva Clear Cardiovascular: Yes: Regular Rate and Rhythm Respiratory: Yes: CTA Bilaterally (no wheezing or rales) Gastrointestinal: Yes: Soft, Abdomen, Obese Edema: No Neurological: Yes: Alert, Oriented Psychiatric: Yes: WNL Labs: CBC, BMP 04/06/18 06:00 04/06/18 06:00 INR, PTT INR 1.09 (0.83-1.09) 04/03/18 19:11 Laboratory Tests 04/06/18 04/06/18 06:00 06:00 WBC 17.7 H Hgb 10.7 Hct 34.6 Plt Count 1135 H Sodium 140 Potassium 4.9 Creatinine 1.0 - ....Imaging EKG: Image Reviewed (NSR, artifact.) Assessment/Plan IMP: CML Thrombocytosis Leukocytosis Pleuritic CP with negative CTA, Echo and ECGs and serial cardiac enzymes. Pseudoseizure REC: 1. Further Rx Thrombocytosis as per Oncology 2. ASA 81mg daily 3. Nuclear stress test offered, discussed: she refused as she had an adverse reaction to pharm agents previously. 4. DVT prophylaxis 5. As no significant arrhythmias over last 48 hours, can d/c telemetry.
[2018-04-08] MEDS: levETIRAcetam 500 MG TABLET (FP) PO SCH ×2 (09:12→21:38)
[2018-04-08] MEDS: FUROSEMIDE 20 MG TABLET (FP) PO SCH (09:12)
[2018-04-08] MEDS: ALLOPURINOL 300 MG TABLET (FP) PO SCH (09:12)
[2018-04-08] MEDS: HYDROXYUREA 500 MG CAPSULE PO SCH ×2 (09:13→21:38)
[2018-04-08] MEDS: LOSARTAN POTASSIUM 50 MG TABLET (FP) PO SCH (09:14)
[2018-04-08] MEDS: PANTOPRAZOLE 40 MG TABLET (FP) PO SCH (09:14)
[2018-04-08] MEDS: amLODIPine BESYLATE 2.5 MG TABLET (FP) PO SCH (09:14)
[2018-04-08] MEDS: ASPIRIN COATED 81 MG TABLET.EC PO SCH ×2 (09:14→21:43)
[2018-04-08] MEDS: IMATINIB MESYLATE 100 MG TABLET PO SCH (09:17)
--- NOTE | 2018-04-08 09:25 | PN ---
Progress Note, Physician - Current Medication List Current Medications: Active Medications Albuterol/Ipratropium (Duoneb -) 1 amp NEB Q6H PRN PRN Reason: SHORTNESS OF BREATH Albuterol/Ipratropium (Duoneb -) 1 amp NEB RQID [facility] Last Admin: 04/08/18 07:59 Dose: 1 amp Allopurinol (Zyloprim -) 300 mg PO DAILY [facility] Last Admin: 04/08/18 09:12 Dose: 300 mg Amlodipine Besylate (Norvasc -) 2.5 mg PO DAILY [facility] Last Admin: 04/08/18 09:14 Dose: 2.5 mg Aspirin (Ecotrin -) 81 mg PO BID [facility] Last Admin: 04/08/18 09:14 Dose: 81 mg Clonazepam (Klonopin -) 1 mg PO TID [facility] Last Admin: 04/08/18 05:25 Dose: 1 mg Docusate Sodium (Colace -) 300 mg PO [facility] Last Admin: 04/07/18 21:20 Dose: 300 mg Furosemide (Lasix -) 20 mg PO DAILY [facility] Last Admin: 04/08/18 09:12 Dose: 20 mg Gabapentin (Neurontin -) 400 mg PO TID [facility] Last Admin: 04/08/18 05:25 Dose: 400 mg Heparin Sodium (Porcine) (Heparin -) 5,000 unit SQ TID [facility] Last Admin: 04/08/18 05:25 Dose: 5,000 unit Hydroxyurea (Hydrea -) 1,000 mg PO [facility] Last Admin: 04/07/18 21:21 Dose: 1,000 mg Hydroxyurea (Hydrea -) 500 mg PO DAILY@1000 [facility] Last Admin: 04/08/18 09:13 Dose: 500 mg Imatinib Mesylate (Gleevec (Restricted To Oncology) -) 400 mg PO DAILY [facility] Stop: 04/08/18 10:01 Last Admin: 04/08/18 09:17 Dose: 400 mg Levetiracetam (Keppra -) 1,000 mg PO BID [facility] Last Admin: 04/08/18 09:12 Dose: 1,000 mg Levothyroxine Sodium (Synthroid -) 25 mcg PO DAILY@0700 [facility] Last Admin: 04/08/18 06:18 Dose: 25 mcg Losartan Potassium (Cozaar -) 50 mg PO DAILY [facility] Last Admin: 04/08/18 09:14 Dose: 50 mg Melatonin (Melatonin) 5 mg PO HS PRN PRN Reason: INSOMNIA Last Admin: 04/06/18 21:08 Dose: 5 mg Oxycodone HCl (Roxicodone -) 7.5 mg PO Q8H PRN PRN Reason: PAIN LEVEL 4 - 6 Last Admin: 04/07/18 17:41 Dose: 7.5 mg Pantoprazole Sodium (Protonix -) 40 mg PO DAILY [facility] Last Admin: 04/08/18 09:14 Dose: 40 mg Pramipexole Dihydrochloride 0. 25 mg/ Pramipexole Dihydrochloride 0.5 mg 0.75 mg PO TID [facility] Senna (Senna -) 1 tab PO DAILY PRN PRN Reason: CONSTIPATION Tizanidine HCl (Tizanidine Hcl) 4 mg PO TID PRN PRN Reason: MUSCLE SPASMS - Objective Vital Signs: Vital Signs Temperature 98.3 F 04/08/18 07:46 Pulse Rate 81 04/08/18 07:46 Respiratory Rate 18 04/08/18 07:46 Blood Pressure 124/67 04/08/18 07:46 O2 Sat by Pulse Oximetry (%) 94 L 04/08/18 07:46 Cardiovascular: Yes: S1, S2 Respiratory: Yes: Regular, CTA Bilaterally Gastrointestinal: Yes: Normal Bowel Sounds, Soft Labs: CBC, BMP 04/06/18 06:00 04/06/18 06:00 INR, PTT INR 1.09 (0.83-1.09) 04/03/18 19:11 Assessment/Plan - Problems (1) Chest pain Assessment/Plan: atypical chest pain telemetry CE 3 sets noted cardiology and pulm eval echo CTA ordered no PE doppler of legs done- no dvt Code(s): R07.9 - CHEST PAIN, UNSPECIFIED (2) CML (chronic myelocytic leukemia) Assessment/Plan: gleevac and hydroxyurea heme on board Code(s): C92.10 - CHRONIC MYELOID LEUK, BCR/ABL-POSITIVE, NOT ACHIEVE REMIS (3) Hypothyroid Assessment/Plan: tsh ok on synthroid Code(s): E03.9 - HYPOTHYROIDISM, UNSPECIFIED (4) Thrombocytosis Assessment/Plan: heme on board secondary to leukemia Code(s): D47.3 - ESSENTIAL (HEMORRHAGIC) THROMBOCYTHEMIA (5) Anxiety disorder Assessment/Plan: lorazepam Code(s): F41.9 - ANXIETY DISORDER, UNSPECIFIED Qualifiers: 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 Increase pramipexole to 7.5 mg q 8hrs. Increase clonazepam to 1 mg q 8hrs. Continue Rx for CML and try to reassure patient. Consider resumption of antidepressant Rx (Try Bupropion XL 150 mg qd x 2 weeks then 300 mg q d). Physical Therapy--consider snf
--- NOTE | 2018-04-08 11:14 | PN ---
Progress Note, Physician History of Present Illness: PULMONARY ALERT,WEAK,+ [place],-CP - Current Medication List Current Medications: Active Medications Albuterol/Ipratropium (Duoneb -) 1 amp NEB Q6H PRN PRN Reason: SHORTNESS OF BREATH Albuterol/Ipratropium (Duoneb -) 1 amp NEB RQID [facility] Last Admin: 04/08/18 07:59 Dose: 1 amp Allopurinol (Zyloprim -) 300 mg PO DAILY [facility] Last Admin: 04/08/18 09:12 Dose: 300 mg Amlodipine Besylate (Norvasc -) 2.5 mg PO DAILY [facility] Last Admin: 04/08/18 09:14 Dose: 2.5 mg Aspirin (Ecotrin -) 81 mg PO BID [facility] Last Admin: 04/08/18 09:14 Dose: 81 mg Clonazepam (Klonopin -) 1 mg PO TID [facility] Last Admin: 04/08/18 05:25 Dose: 1 mg Docusate Sodium (Colace -) 300 mg PO HS [facility] Last Admin: 04/07/18 21:20 Dose: 300 mg Furosemide (Lasix -) 20 mg PO DAILY [facility] Last Admin: 04/08/18 09:12 Dose: 20 mg Gabapentin (Neurontin -) 400 mg PO TID [facility] Last Admin: 04/08/18 05:25 Dose: 400 mg Heparin Sodium (Porcine) (Heparin -) 5,000 unit SQ TID [facility] Last Admin: 04/08/18 05:25 Dose: 5,000 unit Hydroxyurea (Hydrea -) 1,000 mg PO HS [facility] Last Admin: 04/07/18 21:21 Dose: 1,000 mg Hydroxyurea (Hydrea -) 500 mg PO DAILY@1000 [facility] Last Admin: 04/08/18 09:13 Dose: 500 mg Levetiracetam (Keppra -) 1,000 mg PO BID [facility] Last Admin: 04/08/18 09:12 Dose: 1,000 mg Levothyroxine Sodium (Synthroid -) 25 mcg PO DAILY@0700 [facility] Last Admin: 04/08/18 06:18 Dose: 25 mcg Losartan Potassium (Cozaar -) 50 mg PO DAILY [facility] Last Admin: 04/08/18 09:14 Dose: 50 mg Melatonin (Melatonin) 5 mg PO HS PRN PRN Reason: INSOMNIA Last Admin: 04/06/18 21:08 Dose: 5 mg Oxycodone HCl (Roxicodone -) 7.5 mg PO Q8H PRN PRN Reason: PAIN LEVEL 4 - 6 Last Admin: 04/07/18 17:41 Dose: 7.5 mg Pantoprazole Sodium (Protonix -) 40 mg PO DAILY [facility] Last Admin: 04/08/18 09:14 Dose: 40 mg Pramipexole Dihydrochloride 0. 25 mg/ Pramipexole Dihydrochloride 0.5 mg 0.75 mg PO TID [facility] Senna (Senna -) 1 tab PO DAILY PRN PRN Reason: CONSTIPATION Tizanidine HCl (Tizanidine Hcl) 4 mg PO TID PRN PRN Reason: MUSCLE SPASMS - Objective Vital Signs: Vital Signs Temperature 98.3 F 04/08/18 07:46 Pulse Rate 81 04/08/18 07:46 Respiratory Rate 18 04/08/18 07:46 Blood Pressure 124/67 04/08/18 07:46 O2 Sat by Pulse Oximetry (%) 94 L 04/08/18 07:46 Constitutional: Yes: Well Nourished, Calm Eyes: Yes: WNL HENT: Yes: WNL Neck: Yes: WNL Cardiovascular: Yes: Regular Rate and Rhythm, S1, S2 Respiratory: Yes: Diminished Gastrointestinal: Yes: Normal Bowel Sounds, Soft Extremities: Yes: WNL Edema: Yes Labs: CBC, BMP Assessment/Plan A/P Pseudoseizures Shortness of breath PE ruled out CML Thrombocytosis 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 - O2 to keep Spo2 >90% - gleevec, hydrea per onc - inhaled bronchodilators - DVT prophylaxis DR BARRIENTOS Problem List - Problems (1) CML (chronic myelocytic leukemia) Code(s): C92.10 - CHRONIC MYELOID LEUK, BCR/ABL-POSITIVE, NOT ACHIEVE REMIS (2) Hypertension Code(s): I10 - ESSENTIAL (PRIMARY) HYPERTENSION (3) Thrombocytosis Code(s): D47.3 - ESSENTIAL (HEMORRHAGIC) THROMBOCYTHEMIA (4) Multiple sclerosis Code(s): G35 - MULTIPLE SCLEROSIS
--- NOTE | 2018-04-08 12:16 | PN ---
Progress Note (short form) - Note Progress Note: Patient seen and examined at bedside with sister present all questions answered patient feels better frustrated about her medical conditions and her thrombocytosis CBC not done since 04/06 Vital Signs Temperature 98.3 F 04/08/18 07:46 Pulse Rate 81 04/08/18 07:46 Respiratory Rate 18 04/08/18 07:46 Blood Pressure 124/67 04/08/18 07:46 O2 Sat by Pulse Oximetry (%) 94 L 04/08/18 07:46 Constitutional: Yes: Obese, awake and alert Eyes: Yes: Conjunctiva Clear, EOM Intact HENT: Yes: Atraumatic Neck: Yes: Supple. Cardiovascular: Yes: Regular Rate and Rhythm, S1, S2. CHest tender to palpation Respiratory: Yes: Regular, CTA Bilaterally. diminished breath sounds bilaterally Gastrointestinal: Yes: Normal Bowel Sounds, Soft, Abdomen, Obese. No: Tenderness Musculoskeletal: Yes: CN 2-12 intact able to move all extremities Psychiatric: Yes: Alert, Oriented Labs: A/P: 73F with extensive medical history including CML presents to the hospital at the direction of her oncologist/regulator tester due to chest pain and thrombocytopenia. Problem List: CML Chest pain Thrombocytosis HTN CHF Hypothyroidism PE ruled out already Plan: cardiology consult appreciated Continue Gleevac Continue Hyroxyurea 1000mg po QHS and 500mg po QAM will check a STAT CBC and if platelets are still high will increase hydroxyurea to 1000mg po BID Cytogenetics, Flow cytometry, and FISH studies-called pathology and studies were already sent Will need daily CBC CMP and LDH continue aspirin Will follow
[2018-04-08 12:40] LABS: BASO % 3.2 % (0-2.0); HEMATOCRIT 36.1 % (32.4-45.2); HEMOGLOBIN 11.3 GM/dL (10.7-15.3); LYMPH % 21.6 % (8-40); MCH 25.1 pg (25.7-33.7); MCHC 31.3 g/dl (32.0-36.0); MEAN CELL VOLUME 80.1 fl (80-96); MEAN PLT VOLUME 8.5 fl (7.5-11.1); MONO % 3.4 % (3.8-10.2); NEUT % 67.8 % (42.8-82.8); RDW 15.9 % (11.6-15.6); WHITE BLOOD COUNT 19.4 K/mm3 (4.0-10.0)
[2018-04-08 12:41] LABS: PLATELET COUNT 1362 K/MM3 (134-434)
[2018-04-08] MEDS: PRAMIPEXOLE DIHYDROCHLORIDE PO SCH ×2 (13:08→21:41)
[2018-04-08] MEDS ORDERED: HYDROXYUREA 500 MG CAPSULE PO ONE (13:28)
[2018-04-08] MEDS: oxyCODONE HCL 5 MG TABLET PO PRN (17:13)
[2018-04-08] MEDS: DOCUSATE SODIUM 100 MG CAPSULE (FP) PO SCH (21:32)
--- NOTE | 2018-04-08 21:34 | PN ---
Progress Note (short form) - Note Progress Note: Patient seen and examined 04/05/18 Feels better AFVSS Cor: RSR, No murmurs, No gallops Lungs: Clear to P&A Abd: Soft, Normal bowel sounds, No organomegaly Ext:No significant edema Labs/Meds reviewed A/P 73 y/o patient with multiple comorbidities including anxiety, chronic pain,HTN, restless leg syndrome, recently diagnosed CML in 11/2017, who was lost to follow up and presented to the office from PMDS office with increasing thrombocytosis and intermittent chest pain. She had not been taking gleevec 400mg daily CML thrombocytosis-- will resume gleevec . increased hydrea 1g bid gentle hydration/allopurinol continue aspirin 81mg bid on gleevec from 04/04, 04/05, , , 29
--- NOTE | 2018-04-09 01:09 | PN ---
Progress Note, Physician Chief Complaint: in bed comfortable no complaint History of Present Illness: cml with progression of disease ,ms,htn,hypothyroidism heme follow up appreciated - Current Medication List Current Medications: Active Medications Albuterol/Ipratropium (Duoneb -) 1 amp NEB Q6H PRN PRN Reason: SHORTNESS OF BREATH Albuterol/Ipratropium (Duoneb -) 1 amp NEB RQID [facility] Last Admin: 04/08/18 21:00 Dose: 1 amp Allopurinol (Zyloprim -) 300 mg PO DAILY [facility] Last Admin: 04/08/18 09:12 Dose: 300 mg Amlodipine Besylate (Norvasc -) 2.5 mg PO DAILY [facility] Last Admin: 04/08/18 09:14 Dose: 2.5 mg Aspirin (Ecotrin -) 81 mg PO BID [facility] Last Admin: 04/08/18 21:43 Dose: 81 mg Clonazepam (Klonopin -) 1 mg PO TID [facility] Last Admin: 04/08/18 21:39 Dose: 1 mg Docusate Sodium (Colace -) 300 mg PO HS [facility] Last Admin: 04/08/18 21:32 Dose: 300 mg Furosemide (Lasix -) 20 mg PO DAILY [facility] Last Admin: 04/08/18 09:12 Dose: 20 mg Gabapentin (Neurontin -) 400 mg PO TID [facility] Last Admin: 04/08/18 21:46 Dose: 400 mg Heparin Sodium (Porcine) (Heparin -) 5,000 unit SQ TID [facility] Last Admin: 04/08/18 21:46 Dose: 5,000 unit Hydroxyurea (Hydrea -) 1,000 mg PO BID [facility] Last Admin: 04/08/18 21:38 Dose: 1,000 mg Levetiracetam (Keppra -) 1,000 mg PO BID [facility] Last Admin: 04/08/18 21:38 Dose: 1,000 mg Levothyroxine Sodium (Synthroid -) 25 mcg PO DAILY@0700 [facility] Last Admin: 04/08/18 06:18 Dose: 25 mcg Losartan Potassium (Cozaar -) 50 mg PO DAILY [facility] Last Admin: 04/08/18 09:14 Dose: 50 mg Melatonin (Melatonin) 5 mg PO HS PRN PRN Reason: INSOMNIA Last Admin: 04/06/18 21:08 Dose: 5 mg Oxycodone HCl (Roxicodone -) 7.5 mg PO Q8H PRN PRN Reason: PAIN LEVEL 4 - 6 Last Admin: 04/08/18 17:13 Dose: 7.5 mg Pantoprazole Sodium (Protonix -) 40 mg PO DAILY [facility] Last Admin: 04/08/18 09:14 Dose: 40 mg Pramipexole Dihydrochloride 0. 25 mg/ Pramipexole Dihydrochloride 0.5 mg 0.75 mg PO TID [facility] Last Admin: 04/08/18 21:41 Dose: 0.75 mg Senna (Senna -) 1 tab PO DAILY PRN PRN Reason: CONSTIPATION Last Admin: 04/08/18 21:35 Dose: 1 tab Tizanidine HCl (Tizanidine Hcl) 4 mg PO TID PRN PRN Reason: MUSCLE SPASMS - Objective Vital Signs: Vital Signs Temperature 98.4 F 04/08/18 22:00 Pulse Rate 84 04/08/18 22:00 Respiratory Rate 20 04/08/18 22:00 Blood Pressure 132/62 04/08/18 22:00 O2 Sat by Pulse Oximetry (%) 94 L 04/08/18 20:40 Constitutional: Yes: Well Nourished, Anxious Eyes: Yes: EOM Intact HENT: Yes: Normocephalic Neck: Yes: Trachea Midline Cardiovascular: Yes: Regular Rate and Rhythm Respiratory: Yes: CTA Bilaterally Gastrointestinal: Yes: Normal Bowel Sounds ...Rectal Exam: Yes: Deferred Genitourinary: Yes: WNL Breast(s): Yes: WNL Musculoskeletal: Yes: Joint Stiffness, Joint Swelling, Muscle Weakness Extremities: Yes: WNL Neurological: Yes: Alert, Oriented Labs: CBC, BMP 04/08/18 12:27 04/06/18 06:00 INR, PTT INR 1.09 (0.83-1.09) 04/03/18 19:11 Problem List - Problems (1) Diabetes mellitus with hyperosmolarity Code(s): E11.00 - TYPE 2 DIAB W HYPROSM W/O NONKET HYPRGLY-HYPROS COMA ([facility]) (2) Chest pain Code(s): R07.9 - CHEST PAIN, UNSPECIFIED (3) [place] cardiac risk >20% in next 10 years Code(s): Z91.89 - OTH PERSONAL RISK FACTORS, NOT ELSEWHERE CLASSIFIED (4) Restless leg syndrome Code(s): G25.81 - RESTLESS LEGS SYNDROME (5) SVT (supraventricular tachycardia) Code(s): I47.1 - SUPRAVENTRICULAR TACHYCARDIA (6) CML (chronic myelocytic leukemia) Code(s): C92.10 - CHRONIC MYELOID LEUK, BCR/ABL-POSITIVE, NOT ACHIEVE REMIS (7) Abnormal antibody titer Code(s): R76.8 - OTHER SPECIFIED ABNORMAL IMMUNOLOGICAL FINDINGS IN SERUM Assessment/Plan Current Active Problems Chest pain (Acute) Diabetes mellitus with hyperosmolarity (Acute) [place] cardiac risk >20% in next 10 years (Acute) Restless leg syndrome (Acute) SVT (supraventricular tachycardia) (Acute) Seizure (Acute) CML (chronic myelocytic leukemia) (Chronic) advised in past as to possible progression of disease Abnormal Lab Results 04/08/18 12:27 WBC 19.4 H MCH 25.1 L MCHC 31.3 L RDW 15.9 H Plt Count 1362 H Absolute Neuts (auto) 13.2 H Monocytes % 3.4 L Basophils % 3.2 H Laboratory Results - last 24 hr 04/08/18 12:27 WBC 19.4 H RBC 4.50 Hgb 11.3 Hct 36.1 MCV 80.1 MCH 25.1 L MCHC 31.3 L RDW 15.9 H Plt Count 1362 H MPV 8.5 Absolute Neuts (auto) 13.2 H Neutrophils % 67.8 Lymphocytes % 21.6 Monocytes % 3.4 L Eosinophils % 4.0 Basophils % 3.2 H Nucleated RBC % 0 plan: continue hydrea/ gleevac repeat cbc
[2018-04-09] MEDS: GABAPENTIN 400 MG CAPSULE (FP) PO SCH ×3 (05:50→21:56)
[2018-04-09] MEDS: HEPARIN NA (PORCINE) 5,000 UNITS/ML 1ML VIAL SQ SCH ×3 (05:54→21:57)
[2018-04-09] MEDS: PRAMIPEXOLE DIHYDROCHLORIDE PO SCH ×3 (05:54→21:58)
[2018-04-09] MEDS: clonazePAM 0.5 MG TABLET PO SCH ×3 (05:55→21:54)
[2018-04-09] MEDS: LEVOTHYROXINE NA 25 MCG TABLET (FP) PO SCH (06:24)
[2018-04-09 06:41] LABS: BASO % 0.5 % (0-2.0); EOS % 4.5 % (0-4.5); HEMATOCRIT 33.6 % (32.4-45.2); HEMOGLOBIN 10.3 GM/dL (10.7-15.3); LYMPH % 21.5 % (8-40); MCHC 30.7 g/dl (32.0-36.0); MEAN CELL VOLUME 81.2 fl (80-96); MEAN PLT VOLUME 8.4 fl (7.5-11.1); NEUT % 69.5 % (42.8-82.8); RBC 4.14 M/mm3 (3.60-5.2); RDW 16.4 % (11.6-15.6); WHITE BLOOD COUNT 14.8 K/mm3 (4.0-10.0)
[2018-04-09 07:27] LABS: ALK PHOS 146 U/L (45-117); ANION GAP 7 MMOL/L (8-16); BILIRUBIN,TOTAL 0.3 mg/dL (0.2-1); BLOOD UREA NITROGEN 22 mg/dL (7-18); CHLORIDE 102 mmol/L (98-107); CO2 31 mmol/L (21-32); CREATININE 1.4 mg/dL (0.55-1.3); GLUCOSE,RANDOM 72 mg/dL (74-106); LDH 228 U/L (84-246); POTASSIUM 4.6 mmol/L (3.5-5.1); SGOT/AST 39 U/L (15-37); SGPT/ALT 27 U/L (13-61); SODIUM 140 mmol/L (136-145); TOT PROT 6.4 g/dl (6.4-8.2)
[2018-04-09 07:55] LABS: PLATELET COUNT 1172 K/MM3 (134-434)
[2018-04-09] MEDS: ALBUTEROL SO4 2.5/IPRATROPIUM 0.5 INH SOL 3 ML VIAL.NEB. NEB SCH ×4 (08:02→20:00)
[2018-04-09] MEDS ORDERED: PT OWN MED DRAWER 7, Y5N ONE (08:21)
--- NOTE | 2018-04-09 08:52 | PN ---
Progress Note, Physician Chief Complaint: No CP or SOB TELE: reviewed. NSR, no sig arrhythmias - Current Medication List Current Medications: Active Medications Albuterol/Ipratropium (Duoneb -) 1 amp NEB Q6H PRN PRN Reason: SHORTNESS OF BREATH Last Admin: 04/09/18 06:20 Dose: 1 amp Albuterol/Ipratropium (Duoneb -) 1 amp NEB RQID [facility] Last Admin: 04/08/18 21:00 Dose: 1 amp Allopurinol (Zyloprim -) 300 mg PO DAILY [facility] Last Admin: 04/08/18 09:12 Dose: 300 mg Amlodipine Besylate (Norvasc -) 2.5 mg PO DAILY [facility] Last Admin: 04/08/18 09:14 Dose: 2.5 mg Aspirin (Ecotrin -) 81 mg PO BID [facility] Last Admin: 04/08/18 21:43 Dose: 81 mg Clonazepam (Klonopin -) 1 mg PO TID [facility] Last Admin: 04/09/18 05:55 Dose: 1 mg Docusate Sodium (Colace -) 300 mg PO HS [facility] Last Admin: 04/08/18 21:32 Dose: 300 mg Furosemide (Lasix -) 20 mg PO DAILY [facility] Last Admin: 04/08/18 09:12 Dose: 20 mg Gabapentin (Neurontin -) 400 mg PO TID [facility] Last Admin: 04/09/18 05:50 Dose: 400 mg Heparin Sodium (Porcine) (Heparin -) 5,000 unit SQ TID [facility] Last Admin: 04/09/18 05:54 Dose: 5,000 unit Hydroxyurea (Hydrea -) 1,000 mg PO BID [facility] Last Admin: 04/08/18 21:38 Dose: 1,000 mg Levetiracetam (Keppra -) 1,000 mg PO BID [facility] Last Admin: 04/08/18 21:38 Dose: 1,000 mg Levothyroxine Sodium (Synthroid -) 25 mcg PO DAILY@0700 [facility] Last Admin: 04/09/18 06:24 Dose: 25 mcg Losartan Potassium (Cozaar -) 50 mg PO DAILY [facility] Last Admin: 04/08/18 09:14 Dose: 50 mg Melatonin (Melatonin) 5 mg PO HS PRN PRN Reason: INSOMNIA Last Admin: 04/06/18 21:08 Dose: 5 mg Oxycodone HCl (Roxicodone -) 7.5 mg PO Q8H PRN PRN Reason: PAIN LEVEL 4 - 6 Last Admin: 04/08/18 17:13 Dose: 7.5 mg Pantoprazole Sodium (Protonix -) 40 mg PO DAILY [facility] Last Admin: 04/08/18 09:14 Dose: 40 mg Pramipexole Dihydrochloride 0. 25 mg/ Pramipexole Dihydrochloride 0.5 mg 0.75 mg PO TID [facility] Last Admin: 04/09/18 05:54 Dose: 0.75 mg Senna (Senna -) 1 tab PO DAILY PRN PRN Reason: CONSTIPATION Last Admin: 04/08/18 21:35 Dose: 1 tab Tizanidine HCl (Tizanidine Hcl) 4 mg PO TID PRN PRN Reason: MUSCLE SPASMS - Objective Vital Signs: Vital Signs Temperature 98.1 F 04/09/18 07:48 Pulse Rate 77 04/09/18 07:48 Respiratory Rate 20 04/09/18 07:50 Blood Pressure 124/56 L 04/09/18 07:48 O2 Sat by Pulse Oximetry (%) 94 L 04/09/18 07:50 Constitutional: Yes: No Distress, Calm Eyes: Yes: Conjunctiva Clear Cardiovascular: Yes: Regular Rate and Rhythm Respiratory: Yes: CTA Bilaterally Gastrointestinal: Yes: Soft, Abdomen, Obese Edema: No Neurological: Yes: Alert, Oriented ...Motor Strength: WNL Labs: CBC, BMP 04/09/18 05:30 04/09/18 05:30 INR, PTT INR 1.09 (0.83-1.09) 04/03/18 19:11 Laboratory Tests 04/09/18 04/09/18 05:30 05:30 WBC 14.8 H Hgb 10.3 L Hct 33.6 Plt Count 1172 H Sodium 140 Potassium 4.6 BUN 22 H Creatinine 1.4 H AST 39 H ALT 27 Alkaline Phosphatase 146 H LD Total 228 - ....Imaging EKG: Image Reviewed Assessment/Plan IMP: CML Thrombocytosis Leukocytosis Pleuritic CP with negative CTA, Echo and ECGs and serial cardiac enzymes. Pseudoseizures REC: 1. Further Rx Thrombocytosis as per Oncology 2. ASA 81mg daily 3. Nuclear stress test offered, discussed: she refused as she had an adverse reaction to pharm agents previously. 4. DVT prophylaxis 5. As no significant arrhythmias over last 48 hours, can d/c telemetry.
[2018-04-09] MEDS: HYDROXYUREA 500 MG CAPSULE PO SCH ×2 (09:37→21:56)
[2018-04-09] MEDS: ASPIRIN COATED 81 MG TABLET.EC PO SCH ×2 (09:37→21:56)
[2018-04-09] MEDS: PANTOPRAZOLE 40 MG TABLET (FP) PO SCH (09:37)
[2018-04-09] MEDS: ALLOPURINOL 300 MG TABLET (FP) PO SCH (09:37)
[2018-04-09] MEDS: levETIRAcetam 500 MG TABLET (FP) PO SCH ×2 (09:37→21:55)
[2018-04-09] MEDS: FUROSEMIDE 20 MG TABLET (FP) PO SCH (09:37)
[2018-04-09] MEDS: oxyCODONE HCL 5 MG TABLET PO PRN ×2 (09:37→18:35)
[2018-04-09] MEDS: amLODIPine BESYLATE 2.5 MG TABLET (FP) PO SCH (09:37)
[2018-04-09] MEDS: LOSARTAN POTASSIUM 50 MG TABLET (FP) PO SCH (09:40)
--- NOTE | 2018-04-09 10:34 | DS ---
Physical Examination Vital Signs: Vital Signs Temperature 98.1 F 04/09/18 07:48 Pulse Rate 77 04/09/18 07:48 Respiratory Rate 20 04/09/18 07:50 Blood Pressure 124/56 L 04/09/18 07:48 O2 Sat by Pulse Oximetry (%) 94 L 04/09/18 07:50 Cardiovascular: Yes: S1, S2 Respiratory: Yes: Regular, CTA Bilaterally Gastrointestinal: Yes: Normal Bowel Sounds, Soft Labs: CBC, BMP 04/09/18 05:30 04/09/18 05:30 Discharge Summary Reason For Visit: CHRONIC MYELOID LEUKEMIA Current Active Problems Chest pain (Acute) Diabetes mellitus with hyperosmolarity (Acute) [place] cardiac risk >20% in next 10 years (Acute) Restless leg syndrome (Acute) SVT (supraventricular tachycardia) (Acute) Seizure (Acute) CML (chronic myelocytic leukemia) (Chronic) Hospital Course: - Problems (1) Chest pain Assessment/Plan: atypical chest pain telemetry CE 3 sets noted cardiology and pulm eval echo CTA ordered no PE doppler of legs done- no dvt Code(s): R07.9 - CHEST PAIN, UNSPECIFIED (2) CML (chronic myelocytic leukemia) Assessment/Plan: gleevac and hydroxyurea heme on board Code(s): C92.10 - CHRONIC MYELOID LEUK, BCR/ABL-POSITIVE, NOT ACHIEVE REMIS (3) Hypothyroid Assessment/Plan: tsh ok on synthroid Code(s): E03.9 - HYPOTHYROIDISM, UNSPECIFIED (4) Thrombocytosis Assessment/Plan: heme on board secondary to leukemia Code(s): D47.3 - ESSENTIAL (HEMORRHAGIC) THROMBOCYTHEMIA (5) Anxiety disorder Assessment/Plan: lorazepam Code(s): F41.9 - ANXIETY DISORDER, UNSPECIFIED Qualifiers: 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 Increase pramipexole to 7.5 mg q 8hrs. Increase clonazepam to 1 mg q 8hrs. Continue Rx for CML and try to reassure patient. Consider resumption of antidepressant Rx (Try Bupropion XL 150 mg qd x 2 weeks then 300 mg q d). Physical Therapy--REFUSES snf Condition: Improved - Instructions Referrals: Bran De Leon MD [Primary Care Provider] - Disposition: VNS/HOME HEALTH CARE - Home Medications Comprehensive Discharge Medication List: Ambulatory Orders Amlodipine Besylate [Norvasc -] 2.5 mg PO DAILY 09/03/15 Sennosides [Senna] 8.6 mg PO DAILY PRN 09/03/15 Aspirin Coated [Ecotrin -] 81 mg PO DAILY #30 tablet.ec 09/10/15 Docusate Sodium [Colace -] 300 mg PO HS #30 capsule 09/10/15 Furosemide [Lasix -] 20 mg PO DAILY #30 tablet 09/10/15 Losartan Potassium [Cozaar -] 50 mg PO DAILY #30 tablet 09/10/15 clonazePAM [KlonoPIN -] 0.5 mg PO BID 11/06/17 Imatinib Mesylate [Gleevec (Nf) -] 400 mg PO DAILY #30 tablet 11/20/17 Levothyroxine [Synthroid -] 25 mcg PO DAILY@0700 #30 tablet 11/20/17 Pramipexole Dihydrochloride [Mirapex -] 0.5 mg PO TID tablet 11/20/17 levETIRAcetam [Keppra -] 1,000 mg PO BID #120 tablet 11/20/17 Tizanidine HCl [Zanaflex] 4 mg PO TID PRN #90 tablet 02/15/18 Gabapentin [Neurontin -] 400 mg PO Q8H #90 capsule 03/13/18 Hydrocodone/Acetaminophen [[place] 10-325 Tablet] 1 each PO TID PRN #90 tablet MDD 3 03/13/18 Esomeprazole Magnesium [Nexium 24Hr] 40 mg PO DAILY 04/04/18 Interferon Beta-1A [Avonex] 30 mcg IM WEEKLY 04/04/18 Allopurinol [Zyloprim -] 300 mg PO DAILY tablet 04/09/18 Hydroxyurea [Hydrea 500Mg Capsule -] 1,000 mg PO BID capsule 04/09/18 Pramipexole Dihydrochloride [Mirapex -] 0.75 mg PO TID tablet 04/09/18
[2018-04-09 10:35] LABS: ANISOCYTOSIS 1+; MACROCYTOSIS 1+; OVALOCYTE 1+; PLATELET ESTIMATE INCREASED
[2018-04-09] MEDS ORDERED: SODIUM CHLORIDE 1,000 ML IV SCH (11:15)
--- NOTE | 2018-04-09 11:26 | PN ---
Progress Note (short form) - Note Progress Note: Patient seen and examined at bedside with sister present all questions answered patient feels better Vital Signs Temperature 98.1 F 04/09/18 07:48 Pulse Rate 77 04/09/18 07:48 Respiratory Rate 20 04/09/18 07:50 Blood Pressure 124/56 L 04/09/18 07:48 O2 Sat by Pulse Oximetry (%) 94 L 04/09/18 07:50 Constitutional: Yes: Obese, awake and alert Eyes: Yes: Conjunctiva Clear, EOM Intact HENT: Yes: Atraumatic Neck: Yes: Supple. Cardiovascular: Yes: Regular Rate and Rhythm, S1, S2. CHest tender to palpation Respiratory: Yes: Regular, CTA Bilaterally. diminished breath sounds bilaterally Gastrointestinal: Yes: Normal Bowel Sounds, Soft, Abdomen, Obese. No: Tenderness Musculoskeletal: Yes: CN 2-12 intact able to move all extremities Psychiatric: Yes: Alert, Oriented Labs: 04/08/18 04/09/18 04/09/18 12:27 05:30 05:30 WBC 19.4 H 14.8 H RBC 4.50 4.14 Hgb 11.3 10.3 L Hct 36.1 33.6 MCV 80.1 81.2 MCHC 31.3 L 30.7 L RDW 15.9 H 16.4 H Plt Count 1362 H 1172 H Neutrophils % 67.8 69.5 Lymphocytes % 21.6 21.5 Monocytes % 3.4 L 4.0 Eosinophils % 4.0 4.5 Basophils % 3.2 H 0.5 Sodium 140 Potassium 4.6 Chloride 102 Carbon Dioxide 31 Anion Gap 7 L BUN 22 H Creatinine 1.4 H A/P: 73F with extensive medical history including CML presents to the hospital at the direction of her oncologist/business associate due to chest pain and thrombocytopenia. Problem List: CML Chest pain Thrombocytosis HTN CHF Hypothyroidism PE ruled out already r/o tumor lysis syndrome acute kidney injury Plan: will consult nephrology Stop Lasix start IVF cardiology consult appreciated Continue Gleevac Continue Hyroxyurea but increaded to 1000mg po BID will get uric acid in AM Cytogenetics, Flow cytometry, and FISH studies-called pathology and studies were already sent Will need daily CBC CMP and LDH continue aspirin Will follow
[2018-04-09] MEDS: IMATINIB MESYLATE 100 MG TABLET PO SCH (12:07)
--- NOTE | 2018-04-09 12:13 | PN ---
Progress Note, Physician History of Present Illness: pulmonary alert,oob-chair,-cp,-sob - Current Medication List Current Medications: Active Medications Albuterol/Ipratropium (Duoneb -) 1 amp NEB Q6H PRN PRN Reason: SHORTNESS OF BREATH Last Admin: 04/09/18 06:20 Dose: 1 amp Albuterol/Ipratropium (Duoneb -) 1 amp NEB RQID [facility] Last Admin: 04/09/18 11:58 Dose: 1 amp Allopurinol (Zyloprim -) 300 mg PO DAILY [facility] Last Admin: 04/09/18 09:37 Dose: 300 mg Amlodipine Besylate (Norvasc -) 2.5 mg PO DAILY [facility] Last Admin: 04/09/18 09:37 Dose: 2.5 mg Aspirin (Ecotrin -) 81 mg PO BID [facility] Last Admin: 04/09/18 09:37 Dose: 81 mg Clonazepam (Klonopin -) 1 mg PO TID [facility] Last Admin: 04/09/18 05:55 Dose: 1 mg Docusate Sodium (Colace -) 300 mg PO HS [facility] Last Admin: 04/08/18 21:32 Dose: 300 mg Furosemide (Lasix -) 20 mg PO DAILY [facility] Last Admin: 04/09/18 09:37 Dose: 20 mg Gabapentin (Neurontin -) 400 mg PO TID [facility] Last Admin: 04/09/18 05:50 Dose: 400 mg Heparin Sodium (Porcine) (Heparin -) 5,000 unit SQ TID [facility] Last Admin: 04/09/18 05:54 Dose: 5,000 unit Hydroxyurea (Hydrea -) 1,000 mg PO BID [facility] Last Admin: 04/09/18 09:37 Dose: 1,000 mg Sodium Chloride (Normal Saline -) 1,000 mls @ 75 mls/hr IV ASDIR [facility] Last Admin: 04/09/18 12:07 Dose: 75 mls/hr Levetiracetam (Keppra -) 1,000 mg PO BID [facility] Last Admin: 04/09/18 09:37 Dose: 1,000 mg Levothyroxine Sodium (Synthroid -) 25 mcg PO DAILY@0700 [facility] Last Admin: 04/09/18 06:24 Dose: 25 mcg Losartan Potassium (Cozaar -) 50 mg PO DAILY [facility] Last Admin: 04/09/18 09:40 Dose: 50 mg Melatonin (Melatonin) 5 mg PO HS PRN PRN Reason: INSOMNIA Last Admin: 04/06/18 21:08 Dose: 5 mg Non-Formulary Medication (Patient's Own Med) 1 each PO DAILY [facility] Oxycodone HCl (Roxicodone -) 7.5 mg PO Q8H PRN PRN Reason: PAIN LEVEL 4 - 6 Last Admin: 04/09/18 09:37 Dose: 7.5 mg Pantoprazole Sodium (Protonix -) 40 mg PO DAILY [facility] Last Admin: 04/09/18 09:37 Dose: 40 mg Pramipexole Dihydrochloride 0. 25 mg/ Pramipexole Dihydrochloride 0.5 mg 0.75 mg PO TID [facility] Last Admin: 04/09/18 05:54 Dose: 0.75 mg Senna (Senna -) 1 tab PO DAILY PRN PRN Reason: CONSTIPATION Last Admin: 04/08/18 21:35 Dose: 1 tab Tizanidine HCl (Tizanidine Hcl) 4 mg PO TID PRN PRN Reason: MUSCLE SPASMS - Objective Vital Signs: Vital Signs Temperature 98.1 F 04/09/18 07:48 Pulse Rate 77 04/09/18 07:48 Respiratory Rate 20 04/09/18 07:50 Blood Pressure 124/56 L 04/09/18 07:48 O2 Sat by Pulse Oximetry (%) 94 L 04/09/18 07:50 Constitutional: Yes: Well Nourished, Calm Eyes: Yes: WNL HENT: Yes: WNL Neck: Yes: WNL Cardiovascular: Yes: Regular Rate and Rhythm, S1, S2 Respiratory: Yes: Diminished Gastrointestinal: Yes: Normal Bowel Sounds, Soft Extremities: Yes: WNL Edema: No Labs: CBC, BMP 04/09/18 05:30 04/09/18 05:30 INR, PTT INR 1.09 (0.83-1.09) 04/03/18 19:11 Assessment/Plan A/P Pseudoseizures Shortness of breath PE ruled out CML Thrombocytosis 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 - O2 to keep Spo2 >90% - gleevec, hydrea per onc - inhaled bronchodilators - DVT prophylaxis DR BARRIENTOS Problem List - Problems (1) CML (chronic myelocytic leukemia) Code(s): C92.10 - CHRONIC MYELOID LEUK, BCR/ABL-POSITIVE, NOT ACHIEVE REMIS (2) Hypertension Code(s): I10 - ESSENTIAL (PRIMARY) HYPERTENSION (3) Thrombocytosis Code(s): D47.3 - ESSENTIAL (HEMORRHAGIC) THROMBOCYTHEMIA (4) Multiple sclerosis Code(s): G35 - MULTIPLE SCLEROSIS
--- NOTE | 2018-04-09 13:31 | CONSULT ---
Consult - text type - Consultation Consultation Note: Renal Consult for ADELA This is a 73 year old woman with hx of CML, Hypertension, hx of ADELA who presented with increasing plt counts and chest pain. Pt now chest pain free. Pt Cr noted to rise to 1.4 from 0.9. Pt was restarted on Losartan on the . Pt also on Lasix. Getting Gleevac for thrombocytosis/CML. has chornic lower back pain. No sob, cp, fever or chills. PMhx: as above Allergies: NKDA Family hx: NC Social Hx: No T/A/D ROS: as per HPI Home Medications Medication Instructions Recorded Amlodipine Besylate [Norvasc -] 2.5 mg PO DAILY 09/03/15 Sennosides [Senna] 8.6 mg PO DAILY PRN 09/03/15 Aspirin Coated [Ecotrin -] 81 mg PO DAILY #30 tablet.ec 09/10/15 Docusate Sodium [Colace -] 300 mg PO HS #30 capsule 09/10/15 Furosemide [Lasix -] 20 mg PO DAILY #30 tablet 09/10/15 Losartan Potassium [Cozaar -] 50 mg PO DAILY #30 tablet 09/10/15 clonazePAM [KlonoPIN -] 0.5 mg PO BID 11/06/17 Imatinib Mesylate [Gleevec (Nf) -] 400 mg PO DAILY #30 tablet 11/20/17 Levothyroxine [Synthroid -] 25 mcg PO DAILY@0700 #30 tablet 11/20/17 Pramipexole Dihydrochloride 0.5 mg PO TID tablet 11/20/17 [Mirapex -] levETIRAcetam [Keppra -] 1,000 mg PO BID #120 tablet 11/20/17 Tizanidine HCl [Zanaflex] 4 mg PO TID PRN #90 tablet 02/15/18 Gabapentin [Neurontin -] 400 mg PO Q8H #90 capsule 03/13/18 Hydrocodone/Acetaminophen [[place] 1 each PO TID PRN #90 tablet MDD 3 03/13/18 10-325 Tablet] Esomeprazole Magnesium [Nexium 40 mg PO DAILY 04/04/18 24Hr] Interferon Beta-1A [Avonex] 30 mcg IM WEEKLY 04/04/18 Allopurinol [Zyloprim -] 300 mg PO DAILY tablet 04/09/18 Hydroxyurea [Hydrea 500Mg Capsule 1,000 mg PO BID capsule 04/09/18 -] Pramipexole Dihydrochloride 0.75 mg PO TID tablet 04/09/18 [Mirapex -] Vital Signs Temperature 98.1 F 04/09/18 07:48 Pulse Rate 77 04/09/18 07:48 Respiratory Rate 20 04/09/18 07:50 Blood Pressure 124/56 L 04/09/18 07:48 O2 Sat by Pulse Oximetry (%) 94 L 04/09/18 07:50 Intake & Output 04/06/18 04/07/18 04/08/18 04/09/18 23:59 23:59 23:59 23:59 Intake Total 760 1800 730 240 Balance 760 1800 730 240 NAD awake and alert neck supple on NC O2 RRR, NO M/R Dec Bs at lung bases soft NT/ND Trace edema in LE CBC, BMP 04/09/18 05:30 04/09/18 05:30 Current Medications Albuterol/Ipratropium (Duoneb -) 1 amp NEB Q6H PRN PRN Reason: SHORTNESS OF BREATH Last Admin: 04/09/18 06:20 Dose: 1 amp Albuterol/Ipratropium (Duoneb -) 1 amp NEB RQID [facility] Last Admin: 04/09/18 11:58 Dose: 1 amp Allopurinol (Zyloprim -) 300 mg PO DAILY [facility] Last Admin: 04/09/18 09:37 Dose: 300 mg Amlodipine Besylate (Norvasc -) 2.5 mg PO DAILY [facility] Last Admin: 04/09/18 09:37 Dose: 2.5 mg Aspirin (Ecotrin -) 81 mg PO BID [facility] Last Admin: 04/09/18 09:37 Dose: 81 mg Clonazepam (Klonopin -) 1 mg PO TID [facility] Last Admin: 04/09/18 05:55 Dose: 1 mg Docusate Sodium (Colace -) 300 mg PO HS [facility] Last Admin: 04/08/18 21:32 Dose: 300 mg Furosemide (Lasix -) 20 mg PO DAILY [facility] Last Admin: 04/09/18 09:37 Dose: 20 mg Gabapentin (Neurontin -) 400 mg PO TID [facility] Last Admin: 10/30/18 05:50 Dose: 400 mg Heparin Sodium (Porcine) (Heparin -) 5,000 unit SQ TID [facility] Last Admin: 04/09/18 05:54 Dose: 5,000 unit Hydroxyurea (Hydrea -) 1,000 mg PO BID [facility] Last Admin: 04/09/18 09:37 Dose: 1,000 mg Sodium Chloride (Normal Saline -) 1,000 mls @ 75 mls/hr IV ASDIR [facility] Last Admin: 04/09/18 12:07 Dose: 75 mls/hr Levetiracetam (Keppra -) 1,000 mg PO BID [facility] Last Admin: 04/09/18 09:37 Dose: 1,000 mg Levothyroxine Sodium (Synthroid -) 25 mcg PO DAILY@0700 [facility] Last Admin: 04/09/18 06:24 Dose: 25 mcg Melatonin (Melatonin) 5 mg PO HS PRN PRN Reason: INSOMNIA Last Admin: 04/06/18 21:08 Dose: 5 mg Non-Formulary Medication (Patient's Own Med) 1 each PO DAILY [facility] Oxycodone HCl (Roxicodone -) 7.5 mg PO Q8H PRN PRN Reason: PAIN LEVEL 4 - 6 Last Admin: 04/09/18 09:37 Dose: 7.5 mg Pantoprazole Sodium (Protonix -) 40 mg PO DAILY [facility] Last Admin: 04/09/18 09:37 Dose: 40 mg Pramipexole Dihydrochloride 0. 25 mg/ Pramipexole Dihydrochloride 0.5 mg 0.75 mg PO TID [facility] Last Admin: 04/09/18 05:54 Dose: 0.75 mg Senna (Senna -) 1 tab PO DAILY PRN PRN Reason: CONSTIPATION Last Admin: 04/08/18 21:35 Dose: 1 tab Tizanidine HCl (Tizanidine Hcl) 4 mg PO TID PRN PRN Reason: MUSCLE SPASMS 73 year old woman with hx of CML, Hypertension, hx of ADELA who presented with increaseing plt counts and chest pain with ADELA #ADELA (Cr 0.9 to 1.3) r/o hemodynamic injury from ARB + diuretics vs. gleevc induced renal injury vs. obstruction vs. PPI induced AIN #Thrombocytosis #CML #Anemia #Chest pain now resolved Check urine studies for UA, FeUrea, Urine Eos Continue IVF x 12-18 hours Hold ARB and diuretics for now Heme following Trend renal function and electrolytes dose all meds for CrCl ~40 avoid nephrotoxins and IV contrast Thank you will follow Roman Santillan DO
[2018-04-09] MEDS: TIZANIDINE HCL 4 MG TABLET PO PRN (14:18)
[2018-04-09 14:54] LABS: URINE APPEARANCE SLCLOUDY; URINE BILIRUBIN NEGATIVE (<2.0 mg/dL); URINE COLOR YELLOW; URINE GLUCOSE (UA) NEGATIVE (NEGATIVE); URINE KETONE NEGATIVE (NEGATIVE); URINE LEUK ESTERASE TRACE (NEGATIVE); URINE NITRITE POSITIVE (NEGATIVE); URINE PROTEIN NEGATIVE (NEGATIVE); URINE UROBILINOGEN NEGATIVE mg/dL (0.2-1.0)
[2018-04-09 14:59] LABS: URINE BACTERIA RARE /hpf (NONE SEEN); URINE HYALINE CAST 1 /lpf; URINE MUCUS RARE
--- NOTE | 2018-04-09 19:03 | PN ---
Teaching Attending Note Name of Resident: Omar Quinones ATTENDING PHYSICIAN STATEMENT I saw and evaluated the patient. I reviewed the resident's note and discussed the case with the resident. I agree with the resident's findings and plan as documented. SUBJECTIVE: Patient seen and examined CMl ADELA- appreciate renal note Lethargic Last Vital Signs Temp Pulse Resp BP Pulse Ox 97.5 F L 96 H 20 112/56 L 94 L 04/09/18 17:00 04/09/18 17:00 04/09/18 17:00 04/09/18 17:00 04/09/18 07:50 Cor: RSR, No murmurs, No gallops Lungs: Clear to P&A Abd: Soft, Normal bowel sounds, No organomegaly Ext:No significant edema Skin: No rashes, Integument intact Current Medications Generic Name Dose Route Start Last Admin Trade Name Freq PRN Reason Stop Dose Admin Albuterol/Ipratropium 1 amp 04/06/18 15:36 04/09/18 06:20 Duoneb - NEB 1 amp Q6H PRN Administration SHORTNESS OF BREATH Albuterol/Ipratropium 1 amp 04/06/18 16:00 04/09/18 15:34 Duoneb - NEB 1 amp RQID [facility] Administration Allopurinol 300 mg 04/07/18 10:00 04/09/18 09:37 Zyloprim - PO 300 mg DAILY [facility] Administration Amlodipine Besylate 2.5 mg 04/07/18 10:00 04/09/18 09:37 Norvasc - PO 2.5 mg DAILY [facility] Administration Aspirin 81 mg 04/06/18 22:00 04/09/18 09:37 Ecotrin - PO 81 mg BID [facility] Administration Clonazepam 1 mg 04/06/18 22:00 04/09/18 14:17 Klonopin - PO 1 mg TID [facility] Administration Docusate Sodium 300 mg 04/06/18 22:00 04/08/18 21:32 Colace - PO 300 mg HS [facility] Administration Furosemide 20 mg 04/07/18 10:00 04/09/18 09:37 Lasix - PO 20 mg DAILY [facility] Administration Gabapentin 400 mg 04/06/18 22:00 04/09/18 14:17 Neurontin - PO 400 mg TID [facility] Administration Heparin Sodium (Porcine) 5,000 unit 04/06/18 22:00 04/09/18 14:17 Heparin - SQ 5,000 unit TID [facility] Administration Hydroxyurea 1,000 mg 04/08/18 22:00 04/09/18 09:37 Hydrea - PO 1,000 mg BID [facility] Administration Sodium Chloride 1,000 mls @ 75 mls/hr 04/09/18 11:15 04/09/18 12:07 Normal Saline - IV 04/10/18 05:14 75 mls/hr ASDIR [facility] Administration Levetiracetam 1,000 mg 04/06/18 22:00 04/09/18 09:37 Keppra - PO 1,000 mg BID [facility] Administration Levothyroxine Sodium 25 mcg 04/07/18 07:00 04/09/18 06:24 Synthroid - PO 25 mcg DAILY@0700 [facility] Administration Melatonin 5 mg 04/06/18 15:36 04/06/18 21:08 Melatonin PO 5 mg HS PRN Administration INSOMNIA Pt's Own Med ( 1 each 04/10/18 10:00 Imatinib 400mg) PO DAILY [facility] Oxycodone HCl 7.5 mg 04/09/18 18:26 04/09/18 18:35 Roxicodone - PO 7.5 mg Q8H PRN Administration PAIN LEVEL 4 - 6 Pantoprazole Sodium 40 mg 04/07/18 10:00 04/09/18 09:37 Protonix - PO 40 mg DAILY [facility] Administration Pramipexole Dihydrochloride 0. 0.75 mg 04/08/18 14:00 04/09/18 14:18 25 mg/ Pramipexole PO 0.75 mg Dihydrochloride 0.5 mg TID [facility] Administration Senna 1 tab 04/06/18 15:36 04/08/18 21:35 Senna - PO 1 tab DAILY PRN Administration CONSTIPATION Tizanidine HCl 4 mg 04/06/18 15:36 04/09/18 14:18 Tizanidine Hcl PO 4 mg TID PRN Administration MUSCLE SPASMS CBC, BMP 04/09/18 05:30 04/09/18 05:30 CML ADELA Continuing to monitor and to continue with Gleevec and hydrea. OBJECTIVE: ASSESSMENT AND PLAN:
[2018-04-09] MEDS: DOCUSATE SODIUM 100 MG CAPSULE (FP) PO SCH (21:54)
[2018-04-10] MEDS: TIZANIDINE HCL 4 MG TABLET PO PRN (06:34)
[2018-04-10] MEDS: clonazePAM 0.5 MG TABLET PO SCH ×3 (06:34→22:14)
[2018-04-10] MEDS: HEPARIN NA (PORCINE) 5,000 UNITS/ML 1ML VIAL SQ SCH ×3 (06:34→22:14)
[2018-04-10] MEDS: PRAMIPEXOLE DIHYDROCHLORIDE PO SCH ×3 (06:35→22:19)
[2018-04-10] MEDS: GABAPENTIN 400 MG CAPSULE (FP) PO SCH ×3 (06:35→22:14)
[2018-04-10] MEDS: LEVOTHYROXINE NA 25 MCG TABLET (FP) PO SCH (06:36)
[2018-04-10 07:33] LABS: HEMATOCRIT 30.9 % (32.4-45.2); HEMOGLOBIN 9.7 GM/dL (10.7-15.3); MCH 25.3 pg (25.7-33.7); MCHC 31.4 g/dl (32.0-36.0); MEAN CELL VOLUME 80.5 fl (80-96); MEAN PLT VOLUME 8.5 fl (7.5-11.1); RBC 3.84 M/mm3 (3.60-5.2); RDW 16.2 % (11.6-15.6); WHITE BLOOD COUNT 12.4 K/mm3 (4.0-10.0)
[2018-04-10 07:35] LABS: PLATELET COUNT 1208 K/MM3 (134-434)
[2018-04-10] MEDS: ALBUTEROL SO4 2.5/IPRATROPIUM 0.5 INH SOL 3 ML VIAL.NEB. NEB SCH ×3 (07:50→21:55)
[2018-04-10 07:57] LABS: ALBUMIN 2.9 g/dl (3.4-5.0); ALK PHOS 148 U/L (45-117); ANION GAP 6 MMOL/L (8-16); BILIRUBIN,TOTAL 0.2 mg/dL (0.2-1); BLOOD UREA NITROGEN 33 mg/dL (7-18); CALCIUM 8.9 mg/dL (8.5-10.1); CHLORIDE 102 mmol/L (98-107); CO2 31 mmol/L (21-32); CREATININE 1.7 mg/dL (0.55-1.3); GLUCOSE,RANDOM 90 mg/dL (74-106); MAGNESIUM 1.9 mg/dL (1.8-2.4); PHOSPHOROUS 6.6 mg/dL (2.5-4.9); SGOT/AST 47 U/L (15-37); SGPT/ALT 36 U/L (13-61); SODIUM 139 mmol/L (136-145); TOT PROT 6.1 g/dl (6.4-8.2); URIC ACID 4.9 mg/dL (2.6-7.2)
[2018-04-10 07:58] LABS: LDH 222 U/L (84-246)
--- NOTE | 2018-04-10 08:53 | PN ---
Progress Note, Physician Chief Complaint: BUN and creat bumped No distress TELE still on: reviewed. NSR. - Current Medication List Current Medications: Active Medications Albuterol/Ipratropium (Duoneb -) 1 amp NEB Q6H PRN PRN Reason: SHORTNESS OF BREATH Last Admin: 04/09/18 06:20 Dose: 1 amp Albuterol/Ipratropium (Duoneb -) 1 amp NEB RQID [facility] Last Admin: 04/10/18 07:50 Dose: 1 amp Allopurinol (Zyloprim -) 300 mg PO DAILY [facility] Last Admin: 04/09/18 09:37 Dose: 300 mg Amlodipine Besylate (Norvasc -) 2.5 mg PO DAILY [facility] Last Admin: 04/09/18 09:37 Dose: 2.5 mg Aspirin (Ecotrin -) 81 mg PO BID [facility] Last Admin: 04/09/18 21:56 Dose: 81 mg Clonazepam (Klonopin -) 1 mg PO TID [facility] Last Admin: 04/10/18 06:34 Dose: 1 mg Docusate Sodium (Colace -) 300 mg PO HS [facility] Last Admin: 04/09/18 21:54 Dose: 300 mg Furosemide (Lasix -) 20 mg PO DAILY [facility] Last Admin: 04/09/18 09:37 Dose: 20 mg Gabapentin (Neurontin -) 400 mg PO TID [facility] Last Admin: 04/10/18 06:35 Dose: 400 mg Heparin Sodium (Porcine) (Heparin -) 5,000 unit SQ TID [facility] Last Admin: 04/10/18 06:34 Dose: 5,000 unit Hydroxyurea (Hydrea -) 1,000 mg PO BID [facility] Last Admin: 04/09/18 21:56 Dose: 1,000 mg Levetiracetam (Keppra -) 1,000 mg PO BID [facility] Last Admin: 04/09/18 21:55 Dose: 1,000 mg Levothyroxine Sodium (Synthroid -) 25 mcg PO DAILY@0700 [facility] Last Admin: 04/10/18 06:36 Dose: 25 mcg Melatonin (Melatonin) 5 mg PO HS PRN PRN Reason: INSOMNIA Last Admin: 04/06/18 21:08 Dose: 5 mg Pt's Own Med ( (Imatinib 400mg)) 1 each PO DAILY [facility] Oxycodone HCl (Roxicodone -) 7.5 mg PO Q8H PRN PRN Reason: PAIN LEVEL 4 - 6 Last Admin: 04/09/18 18:35 Dose: 7.5 mg Pantoprazole Sodium (Protonix -) 40 mg PO DAILY [facility] Last Admin: 04/09/18 09:37 Dose: 40 mg Pramipexole Dihydrochloride 0. 25 mg/ Pramipexole Dihydrochloride 0.5 mg 0.75 mg PO TID [facility] Last Admin: 04/10/18 06:35 Dose: 0.75 mg Senna (Senna -) 1 tab PO DAILY PRN PRN Reason: CONSTIPATION Last Admin: 04/08/18 21:35 Dose: 1 tab Tizanidine HCl (Tizanidine Hcl) 4 mg PO TID PRN PRN Reason: MUSCLE SPASMS Last Admin: 04/10/18 06:34 Dose: 4 mg - Objective Vital Signs: Vital Signs Temperature 98.3 F 04/10/18 08:13 Pulse Rate 81 04/10/18 08:13 Respiratory Rate 20 04/10/18 08:13 Blood Pressure 95/54 L 04/10/18 08:13 O2 Sat by Pulse Oximetry (%) 98 04/10/18 08:13 Constitutional: Yes: No Distress, Calm Cardiovascular: Yes: Regular Rate and Rhythm Respiratory: Yes: CTA Bilaterally Gastrointestinal: Yes: Soft Edema: No Neurological: Yes: Alert, Oriented ...Motor Strength: WNL Labs: CBC, BMP 04/10/18 06:30 04/10/18 06:30 INR, PTT INR 1.09 (0.83-1.09) 04/03/18 19:11 - ....Imaging EKG: Image Reviewed Assessment/Plan IMP: CML Thrombocytosis Leukocytosis Pleuritic CP with negative CTA, Echo and ECGs and serial cardiac enzymes. Pseudoseizures ARF REC: 1. Further Rx Thrombocytosis as per Oncology 2. ASA 81mg daily 3. Nuclear stress test offered, discussed: she refused as she had an adverse reaction to pharm agents previously. 4. DVT prophylaxis 5. As no significant arrhythmias over last 48 hours, can d/c telemetry. 6. Acute renal failure: d/c Amlodipine and Lasix. Hydrate gently. Repeat BMP in AM
[2018-04-10] MEDS: HYDROXYUREA 500 MG CAPSULE PO SCH ×2 (09:06→22:17)
[2018-04-10] MEDS: ASPIRIN COATED 81 MG TABLET.EC PO SCH ×2 (09:07→22:21)
[2018-04-10] MEDS: levETIRAcetam 500 MG TABLET (FP) PO SCH ×2 (09:08→22:14)
[2018-04-10] MEDS: IMATINIB 400 MG PO SCH (09:09)
[2018-04-10] MEDS: PANTOPRAZOLE 40 MG TABLET (FP) PO SCH (09:09)
[2018-04-10] MEDS: ALLOPURINOL 300 MG TABLET (FP) PO SCH (09:10)
[2018-04-10] MEDS: SODIUM CHLORIDE 1,000 ML IV SCH (09:14)
[2018-04-10] MEDS ORDERED: IMATINIB MESYLATE 400 MG PO SCH (10:00)
--- NOTE | 2018-04-10 10:55 | PN ---
Progress Note, Physician History of Present Illness: pulmonary alert,no distress,oob-chair. - Current Medication List Current Medications: Active Medications Albuterol/Ipratropium (Duoneb -) 1 amp NEB Q6H PRN PRN Reason: SHORTNESS OF BREATH Last Admin: 04/09/18 06:20 Dose: 1 amp Albuterol/Ipratropium (Duoneb -) 1 amp NEB RQID [facility] Last Admin: 04/10/18 07:50 Dose: 1 amp Allopurinol (Zyloprim -) 300 mg PO DAILY [facility] Last Admin: 04/10/18 09:10 Dose: 300 mg Aspirin (Ecotrin -) 81 mg PO BID [facility] Last Admin: 04/10/18 09:07 Dose: 81 mg Clonazepam (Klonopin -) 1 mg PO TID [facility] Last Admin: 04/10/18 06:34 Dose: 1 mg Docusate Sodium (Colace -) 300 mg PO HS [facility] Last Admin: 04/09/18 21:54 Dose: 300 mg Gabapentin (Neurontin -) 400 mg PO TID [facility] Last Admin: 04/10/18 06:35 Dose: 400 mg Heparin Sodium (Porcine) (Heparin -) 5,000 unit SQ TID [facility] Last Admin: 04/10/18 06:34 Dose: 5,000 unit Hydroxyurea (Hydrea -) 1,000 mg PO BID [facility] Last Admin: 04/10/18 09:06 Dose: 1,000 mg Sodium Chloride (Normal Saline -) 1,000 mls @ 75 mls/hr IV ASDIR [facility] Last Admin: 04/10/18 09:14 Dose: 75 mls/hr Levetiracetam (Keppra -) 1,000 mg PO BID [facility] Last Admin: 04/10/18 09:08 Dose: 1,000 mg Levothyroxine Sodium (Synthroid -) 25 mcg PO DAILY@0700 [facility] Last Admin: 04/10/18 06:36 Dose: 25 mcg Melatonin (Melatonin) 5 mg PO HS PRN PRN Reason: INSOMNIA Last Admin: 04/06/18 21:08 Dose: 5 mg Pt's Own Med ( (Imatinib 400mg)) 1 each PO DAILY [facility] Last Admin: 04/10/18 09:09 Dose: 1 each Oxycodone HCl (Roxicodone -) 7.5 mg PO Q8H PRN PRN Reason: PAIN LEVEL 4 - 6 Last Admin: 04/09/18 18:35 Dose: 7.5 mg Pantoprazole Sodium (Protonix -) 40 mg PO DAILY [facility] Last Admin: 04/10/18 09:09 Dose: 40 mg Pramipexole Dihydrochloride 0. 25 mg/ Pramipexole Dihydrochloride 0.5 mg 0.75 mg PO TID [facility] Last Admin: 04/10/18 06:35 Dose: 0.75 mg Senna (Senna -) 1 tab PO DAILY PRN PRN Reason: CONSTIPATION Last Admin: 04/08/18 21:35 Dose: 1 tab Tizanidine HCl (Tizanidine Hcl) 4 mg PO TID PRN PRN Reason: MUSCLE SPASMS Last Admin: 04/10/18 06:34 Dose: 4 mg - Objective Vital Signs: Vital Signs Temperature 98.3 F 04/10/18 09:52 Pulse Rate 74 04/10/18 09:52 Respiratory Rate 18 04/10/18 09:52 Blood Pressure 123/53 L 04/10/18 09:52 O2 Sat by Pulse Oximetry (%) 98 04/10/18 08:13 Constitutional: Yes: Well Nourished, Calm Eyes: Yes: WNL HENT: Yes: WNL Cardiovascular: Yes: Regular Rate and Rhythm, S1, S2 Respiratory: Yes: Diminished Gastrointestinal: Yes: Normal Bowel Sounds, Soft Extremities: Yes: WNL Edema: No Labs: CBC, BMP 04/10/18 06:30 04/10/18 06:30 INR, PTT INR 1.09 (0.83-1.09) 04/03/18 19:11 Assessment/Plan A/P Pseudoseizures Shortness of breath improved PE ruled out CML Thrombocytosis 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 - O2 to keep Spo2 >90% - gleevec, hydrea per onc - inhaled bronchodilators - DVT prophylaxis DR BARRIENTOS Problem List - Problems (1) CML (chronic myelocytic leukemia) Code(s): C92.10 - CHRONIC MYELOID LEUK, BCR/ABL-POSITIVE, NOT ACHIEVE REMIS (2) Hypertension Code(s): I10 - ESSENTIAL (PRIMARY) HYPERTENSION (3) Thrombocytosis Code(s): D47.3 - ESSENTIAL (HEMORRHAGIC) THROMBOCYTHEMIA (4) Multiple sclerosis Code(s): G35 - MULTIPLE SCLEROSIS
[2018-04-10 10:56] LABS: ANISOCYTOSIS 1+
--- NOTE | 2018-04-10 11:25 | PN ---
Progress Note (short form) - Note Progress Note: Patient seen and examined at bedside sitting up in chair on the phone all questions answered patient feels "ok" today creatinine worsened today now 1.7 got dose of lasix yesterday Vital Signs Temperature 98.3 F 04/10/18 09:52 Pulse Rate 74 04/10/18 09:52 Respiratory Rate 18 04/10/18 09:52 Blood Pressure 123/53 L 04/10/18 09:52 O2 Sat by Pulse Oximetry (%) 98 04/10/18 08:13 Constitutional: Yes: Obese, awake and alert Eyes: Yes: Conjunctiva Clear, EOM Intact HENT: Yes: Atraumatic Neck: Yes: Supple. Cardiovascular: Yes: Regular Rate and Rhythm, S1, S2. No lower extremity edema Respiratory: diminished breath sounds bilaterally Faint crackles bilaterally Gastrointestinal: Yes: Normal Bowel Sounds, Soft, Abdomen, Obese. No: Tenderness Musculoskeletal: Yes: CN 2-12 intact able to move all extremities. 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 Problem List: CML Chest pain Thrombocytosis HTN CHF Hypothyroidism PE ruled out already r/o tumor lysis syndrome acute kidney injury Plan: nephrology consult appreciated FeUrea 31.5% consistent with pre-renal disease-recently started on ARB Updated Dr. Santillan and will see patient in consultation today Hold nephrotoxic drugs Stop Lasix got yesterday's dose Consider US renal/Bladder-nephrology to see Hold ARB and diuretics. continue IVF NS @ 75ml/hr cardiology consult appreciated Continue Gleevac 400mg po Daily Continue Hyroxyurea 100mg po BID Cytogenetics, Flow cytometry, and FISH studies-called pathology and studies were already sent Will need daily CBC CMP Uric acid and LDH continue aspirin Will follow
[2018-04-10] MEDS ORDERED: HYDROXYUREA 500 MG CAPSULE PO ONE (16:45)
[2018-04-10] MEDS ORDERED: SODIUM CHLORIDE 250 ML IV ONE (16:45)
--- NOTE | 2018-04-10 17:08 | PN ---
Teaching Attending Note Name of Resident: Omar Quinones ATTENDING PHYSICIAN STATEMENT I saw and evaluated the patient. I reviewed the resident's note and discussed the case with the resident. I agree with the resident's findings and plan as documented. SUBJECTIVE:Patient seen and examined Review of patients medicines- klonipin--lethagy in up to 48% Mirapex --lethargy in up to 50) Tizanidine --lethargy in up to 92% oxycodone melatonin Would reassess meds in context of lethargy ??? need for all of the above No change in platelets- to increase hydrea from 2 gm to 3 gm per day. Receiving hydration for rising creatinine. OBJECTIVE: ASSESSMENT AND PLAN:
[2018-04-10] MEDS ORDERED: PT OWN MED DRAWER 7, Y5N ONE ×2 (17:28→22:11)
[2018-04-10] MEDS: oxyCODONE HCL 5 MG TABLET PO PRN (17:37)
--- NOTE | 2018-04-10 18:03 | PN ---
Progress Note (short form) - Note Progress Note: Renal follow up for DAELA Pt seen and examined at the bedside earlier today no acute complaints no sob, cp, abd pain Vital Signs Temperature 98.1 F 04/10/18 13:17 Pulse Rate 80 04/10/18 13:17 Respiratory Rate 18 04/10/18 13:17 Blood Pressure 123/72 04/10/18 13:17 O2 Sat by Pulse Oximetry (%) 98 04/10/18 08:13 Intake & Output 04/07/18 04/08/18 04/09/18 04/10/18 23:59 23:59 23:59 23:59 Intake Total 5630 907 4520 860 Balance 4106 882 1931 860 NAD awake and alert neck supple on NC O2 RRR, NO M/R Dec Bs at lung bases soft NT/ND Trace edema in LE CBC, BMP 04/10/18 06:30 04/10/18 06:30 Current Medications Albuterol/Ipratropium (Duoneb -) 1 amp NEB Q6H PRN PRN Reason: SHORTNESS OF BREATH Last Admin: 04/09/18 06:20 Dose: 1 amp Albuterol/Ipratropium (Duoneb -) 1 amp NEB RQID [facility] Last Admin: 04/10/18 11:20 Dose: Not Given Allopurinol (Zyloprim -) 300 mg PO DAILY [facility] Last Admin: 04/10/18 09:10 Dose: 300 mg Aspirin (Ecotrin -) 81 mg PO BID [facility] Last Admin: 04/10/18 09:07 Dose: 81 mg Clonazepam (Klonopin -) 1 mg PO TID [facility] Last Admin: 04/10/18 13:27 Dose: 1 mg Docusate Sodium (Colace -) 300 mg PO HS [facility] Last Admin: 04/09/18 21:54 Dose: 300 mg Gabapentin (Neurontin -) 400 mg PO TID [facility] Last Admin: 04/10/18 13:28 Dose: 400 mg Heparin Sodium (Porcine) (Heparin -) 5,000 unit SQ TID [facility] Last Admin: 04/10/18 13:28 Dose: 5,000 unit Hydroxyurea (Hydrea -) 1,500 mg PO BID [facility] Sodium Chloride (Normal Saline -) 1,000 mls @ 75 mls/hr IV ASDIR [facility] Last Admin: 04/10/18 09:14 Dose: 75 mls/hr Levetiracetam (Keppra -) 1,000 mg PO BID [facility] Last Admin: 04/10/18 09:08 Dose: 1,000 mg Levothyroxine Sodium (Synthroid -) 25 mcg PO DAILY@0700 [facility] Last Admin: 04/10/18 06:36 Dose: 25 mcg Melatonin (Melatonin) 5 mg PO HS PRN PRN Reason: INSOMNIA Last Admin: 04/06/18 21:08 Dose: 5 mg Pt's Own Med ( (Imatinib 400mg)) 1 each PO DAILY [facility] Last Admin: 04/10/18 09:09 Dose: 1 each Oxycodone HCl (Roxicodone -) 7.5 mg PO Q8H PRN PRN Reason: PAIN LEVEL 4 - 6 Last Admin: 04/10/18 17:37 Dose: 7.5 mg Pantoprazole Sodium (Protonix -) 40 mg PO DAILY [facility] Last Admin: 04/10/18 09:09 Dose: 40 mg Pramipexole Dihydrochloride 0. 25 mg/ Pramipexole Dihydrochloride 0.5 mg 0.75 mg PO TID [facility] Last Admin: 04/10/18 13:28 Dose: 0.75 mg Senna (Senna -) 1 tab PO DAILY PRN PRN Reason: CONSTIPATION Last Admin: 04/08/18 21:35 Dose: 1 tab Tizanidine HCl (Tizanidine Hcl) 4 mg PO TID PRN PRN Reason: MUSCLE SPASMS Last Admin: 04/10/18 06:34 Dose: 4 mg 73 year old woman with hx of CML, Hypertension, hx of ADELA who presented with increaseing plt counts and chest pain with ADELA #ADELA (Cr 0.9 to 1.3) r/o hemodynamic injury from ARB + diuretics vs. gleevc induced renal injury vs. obstruction vs. PPI induced AIN #Thrombocytosis #CML #Anemia #Chest pain now resolved Renal function w/o improvement despite IVF however pt did get ARB and Lasix yesterday would continue to trend renal function for now continue IVF as long as pt tolerates it Heme follow up Roman Santillan DO
--- NOTE | 2018-04-10 19:07 | PN ---
Progress Note, Physician Chief Complaint: AMS Pseudoseizures History of Present Illness: NAD at this time, lethargic Had Rapid Response this afternoon. Evaluated by hospitalist. Pt was sitting in a chair, when she was found by RN slumped over. Upon verbal and physical stimuli /sternal rub, pt was unresponsive. Patient was transferred to bed from chair, on sternal rub, patient began to flail around all 4 extremities wildly until spontaneously calming down. She was given Ativan 0.5 mg IVP once. RN spoke to Neuro, no further recommendations at this time. Pt being transferred to [facility] x 24 hours Also seen by Cardiology, no evidence of cardiac etiology Pt is being evaluated for Pseudoseizures. EEG pending, Head CT ordered by hospitalist - Current Medication List Current Medications: Active Medications Albuterol/Ipratropium (Duoneb -) 1 amp NEB Q6H PRN PRN Reason: SHORTNESS OF BREATH Last Admin: 04/09/18 06:20 Dose: 1 amp Albuterol/Ipratropium (Duoneb -) 1 amp NEB RQID [facility] Last Admin: 04/10/18 11:20 Dose: Not Given Allopurinol (Zyloprim -) 300 mg PO DAILY [facility] Last Admin: 04/10/18 09:10 Dose: 300 mg Aspirin (Ecotrin -) 81 mg PO BID [facility] Last Admin: 04/10/18 09:07 Dose: 81 mg Clonazepam (Klonopin -) 1 mg PO TID [facility] Last Admin: 04/10/18 13:27 Dose: 1 mg Docusate Sodium (Colace -) 300 mg PO HS [facility] Last Admin: 04/09/18 21:54 Dose: 300 mg Gabapentin (Neurontin -) 400 mg PO TID [facility] Last Admin: 04/10/18 13:28 Dose: 400 mg Heparin Sodium (Porcine) (Heparin -) 5,000 unit SQ TID [facility] Last Admin: 04/10/18 13:28 Dose: 5,000 unit Hydroxyurea (Hydrea -) 1,500 mg PO BID [facility] Sodium Chloride (Normal Saline -) 1,000 mls @ 75 mls/hr IV ASDIR [facility] Last Admin: 04/10/18 09:14 Dose: 75 mls/hr Levetiracetam (Keppra -) 1,000 mg PO BID [facility] Last Admin: 04/10/18 09:08 Dose: 1,000 mg Levothyroxine Sodium (Synthroid -) 25 mcg PO DAILY@0700 [facility] Last Admin: 04/10/18 06:36 Dose: 25 mcg Melatonin (Melatonin) 5 mg PO HS PRN PRN Reason: INSOMNIA Last Admin: 04/06/18 21:08 Dose: 5 mg Pt's Own Med ( (Imatinib 400mg)) 1 each PO DAILY [facility] Last Admin: 04/10/18 09:09 Dose: 1 each Oxycodone HCl (Roxicodone -) 7.5 mg PO Q8H PRN PRN Reason: PAIN LEVEL 4 - 6 Last Admin: 04/10/18 17:37 Dose: 7.5 mg Pantoprazole Sodium (Protonix -) 40 mg PO DAILY [facility] Last Admin: 04/10/18 09:09 Dose: 40 mg Pramipexole Dihydrochloride 0. 25 mg/ Pramipexole Dihydrochloride 0.5 mg 0.75 mg PO TID [facility] Last Admin: 04/10/18 13:28 Dose: 0.75 mg Senna (Senna -) 1 tab PO DAILY PRN PRN Reason: CONSTIPATION Last Admin: 04/08/18 21:35 Dose: 1 tab Tizanidine HCl (Tizanidine Hcl) 4 mg PO TID PRN PRN Reason: MUSCLE SPASMS Last Admin: 04/10/18 06:34 Dose: 4 mg - Objective Vital Signs: Vital Signs Temperature 98.1 F 04/10/18 13:17 Pulse Rate 80 04/10/18 13:17 Respiratory Rate 18 04/10/18 13:17 Blood Pressure 147/77 04/10/18 18:42 O2 Sat by Pulse Oximetry (%) 98 04/10/18 08:13 Constitutional: Yes: Well Nourished, No Distress, Calm Cardiovascular: Yes: Regular Rate and Rhythm Respiratory: Yes: Regular Gastrointestinal: Yes: Normal Bowel Sounds, Soft Musculoskeletal: Yes: Muscle Weakness Extremities: Yes: WNL Edema: No Peripheral Pulses WNL: Yes Neurological: Yes: Alert, Oriented Psychiatric: Yes: Alert, Oriented Labs: CBC, BMP 04/10/18 06:30 04/10/18 06:30 INR, PTT INR 1.09 (0.83-1.09) 04/03/18 19:11 Problem List - Problems (1) Seizure Assessment/Plan: -As per Neurology, they are likely pseudoseizures -Keppra increased to 1000 mg po BID Code(s): R56.9 - UNSPECIFIED CONVULSIONS (2) CML (chronic myelocytic leukemia) Code(s): C92.10 - CHRONIC MYELOID LEUK, BCR/ABL-POSITIVE, NOT ACHIEVE REMIS (3) Anxiety and depression Code(s): F41.9 - ANXIETY DISORDER, UNSPECIFIED; F32.9 - MAJOR DEPRESSIVE DISORDER, SINGLE EPISODE, UNSPECIFIED (4) Acute kidney failure Code(s): N17.9 - ACUTE KIDNEY FAILURE, UNSPECIFIED
[2018-04-10] MEDS: DOCUSATE SODIUM 100 MG CAPSULE (FP) PO SCH (22:14)
[2018-04-10] MEDS: buPROPion HCL 75 MG TABLET PO SCH (22:18)
[2018-04-11] MEDS: SODIUM CHLORIDE 1,000 ML IV SCH ×2 (01:30→10:09)
[2018-04-11] MEDS: oxyCODONE HCL 5 MG TABLET PO PRN ×2 (03:43→20:20)
[2018-04-11] MEDS: clonazePAM 0.5 MG TABLET PO SCH ×3 (05:29→21:04)
[2018-04-11] MEDS: GABAPENTIN 400 MG CAPSULE (FP) PO SCH ×3 (05:29→21:04)
[2018-04-11] MEDS: HEPARIN NA (PORCINE) 5,000 UNITS/ML 1ML VIAL SQ SCH ×3 (05:29→21:10)
[2018-04-11] MEDS: PRAMIPEXOLE DIHYDROCHLORIDE PO SCH ×3 (05:31→21:05)
[2018-04-11] MEDS: LEVOTHYROXINE NA 25 MCG TABLET (FP) PO SCH (06:31)
[2018-04-11 08:05] LABS: BASO % 0.7 % (0-2.0); EOS % 4.7 % (0-4.5); HEMATOCRIT 30.6 % (32.4-45.2); HEMOGLOBIN 9.4 GM/dL (10.7-15.3); LYMPH % 33.3 % (8-40); MCH 25.1 pg (25.7-33.7); MCHC 30.8 g/dl (32.0-36.0); MEAN CELL VOLUME 81.4 fl (80-96); MEAN PLT VOLUME 8.7 fl (7.5-11.1); MONO % 2.7 % (3.8-10.2); NEUT % 58.6 % (42.8-82.8); RBC 3.76 M/mm3 (3.60-5.2); RDW 16.4 % (11.6-15.6); WHITE BLOOD COUNT 9.4 K/mm3 (4.0-10.0)
[2018-04-11] MEDS: ALBUTEROL SO4 2.5/IPRATROPIUM 0.5 INH SOL 3 ML VIAL.NEB. NEB SCH ×3 (08:17→13:09)
[2018-04-11 08:42] LABS: ALBUMIN 2.8 g/dl (3.4-5.0); ALK PHOS 146 U/L (45-117); ANION GAP 6 MMOL/L (8-16); BILIRUBIN,TOTAL 0.2 mg/dL (0.2-1); BLOOD UREA NITROGEN 26 mg/dL (7-18); CALCIUM 8.7 mg/dL (8.5-10.1); CHLORIDE 105 mmol/L (98-107); CO2 30 mmol/L (21-32); CREATININE 1.2 mg/dL (0.55-1.3); GLUCOSE,RANDOM 70 mg/dL (74-106); LDH 204 U/L (84-246); MAGNESIUM 2.1 mg/dL (1.8-2.4); PHOSPHOROUS 5.2 mg/dL (2.5-4.9); POTASSIUM 4.9 mmol/L (3.5-5.1); SGOT/AST 45 U/L (15-37); SGPT/ALT 37 U/L (13-61); SODIUM 140 mmol/L (136-145); TOT PROT 5.8 g/dl (6.4-8.2); URIC ACID 4.4 mg/dL (2.6-7.2)
[2018-04-11 08:46] LABS: PLATELET COUNT 1112 K/MM3 (134-434)
--- NOTE | 2018-04-11 09:12 | PN ---
Progress Note, Physician Chief Complaint: renal fxn improved with hydration and holding Diuretics No new complaints - Current Medication List Current Medications: Active Medications Albuterol/Ipratropium (Duoneb -) 1 amp NEB Q6H PRN PRN Reason: SHORTNESS OF BREATH Last Admin: 04/09/18 06:20 Dose: 1 amp Albuterol/Ipratropium (Duoneb -) 1 amp NEB RQID [facility] Last Admin: 04/11/18 08:17 Dose: 1 amp Allopurinol (Zyloprim -) 300 mg PO DAILY [facility] Last Admin: 04/10/18 09:10 Dose: 300 mg Aspirin (Ecotrin -) 81 mg PO BID [facility] Last Admin: 04/10/18 22:21 Dose: 81 mg Bupropion HCl (Wellbutrin -) 150 mg PO BID [facility] Last Admin: 04/10/18 22:18 Dose: 150 mg Clonazepam (Klonopin -) 1 mg PO TID [facility] Last Admin: 04/11/18 05:29 Dose: 1 mg Docusate Sodium (Colace -) 300 mg PO HS [facility] Last Admin: 04/10/18 22:14 Dose: 300 mg Gabapentin (Neurontin -) 400 mg PO TID [facility] Last Admin: 04/11/18 05:29 Dose: 400 mg Heparin Sodium (Porcine) (Heparin -) 5,000 unit SQ TID [facility] Last Admin: 04/11/18 05:29 Dose: 5,000 unit Hydroxyurea (Hydrea -) 1,500 mg PO BID [facility] Last Admin: 04/10/18 22:17 Dose: 1,500 mg Sodium Chloride (Normal Saline -) 1,000 mls @ 75 mls/hr IV ASDIR [facility] Last Admin: 04/11/18 01:30 Dose: 75 mls/hr Levetiracetam (Keppra -) 1,000 mg PO BID [facility] Last Admin: 04/10/18 22:14 Dose: 1,000 mg Levothyroxine Sodium (Synthroid -) 25 mcg PO DAILY@0700 [facility] Last Admin: 04/11/18 06:31 Dose: 25 mcg Melatonin (Melatonin) 5 mg PO HS PRN PRN Reason: INSOMNIA Last Admin: 04/06/18 21:08 Dose: 5 mg Pt's Own Med ( (Imatinib 400mg)) 1 each PO DAILY [facility] Last Admin: 04/10/18 09:09 Dose: 1 each Oxycodone HCl (Roxicodone -) 7.5 mg PO Q8H PRN PRN Reason: PAIN LEVEL 4 - 6 Last Admin: 04/11/18 03:43 Dose: 7.5 mg Pantoprazole Sodium (Protonix -) 40 mg PO DAILY [facility] Last Admin: 04/10/18 09:09 Dose: 40 mg Pramipexole Dihydrochloride 0. 25 mg/ Pramipexole Dihydrochloride 0.5 mg 0.75 mg PO TID [facility] Last Admin: 04/11/18 05:31 Dose: 0.75 mg Senna (Senna -) 1 tab PO DAILY PRN PRN Reason: CONSTIPATION Last Admin: 04/08/18 21:35 Dose: 1 tab Tizanidine HCl (Tizanidine Hcl) 4 mg PO TID PRN PRN Reason: MUSCLE SPASMS Last Admin: 04/10/18 06:34 Dose: 4 mg - Objective Vital Signs: Vital Signs Temperature 98.5 F 04/11/18 06:00 Pulse Rate 71 04/11/18 06:00 Respiratory Rate 20 04/11/18 06:00 Blood Pressure 133/59 L 04/11/18 06:00 O2 Sat by Pulse Oximetry (%) 98 04/10/18 21:00 Constitutional: Yes: No Distress, Calm Eyes: Yes: Conjunctiva Clear Cardiovascular: Yes: Regular Rate and Rhythm Respiratory: Yes: CTA Bilaterally Gastrointestinal: Yes: Soft (obese, NT) Edema: No Neurological: Yes: Alert, Oriented ...Motor Strength: WNL Labs: CBC, BMP 04/11/18 07:00 04/11/18 07:00 INR, PTT INR 1.09 (0.83-1.09) 04/03/18 19:11 Assessment/Plan IMP: CML Thrombocytosis Leukocytosis Pleuritic CP with negative CTA, Echo and ECGs and serial cardiac enzymes. Pseudoseizures ARF- resolved REC: 1. Further Rx Thrombocytosis as per Oncology 2. ASA 81mg daily 3. Nuclear stress test offered, discussed: she refused as she had an adverse reaction to pharm agents previously. 4. DVT prophylaxis 5. No arrhythmias on tele for 72 hours 6. Acute renal failure: resolved with hydration and holding diuretic.
[2018-04-11] MEDS: PANTOPRAZOLE 40 MG TABLET (FP) PO SCH (09:58)
[2018-04-11] MEDS: ASPIRIN COATED 81 MG TABLET.EC PO SCH ×2 (09:58→21:05)
[2018-04-11] MEDS: levETIRAcetam 500 MG TABLET (FP) PO SCH ×2 (09:58→21:06)
[2018-04-11] MEDS: HYDROXYUREA 500 MG CAPSULE PO SCH ×2 (10:09→21:04)
[2018-04-11] MEDS: IMATINIB 400 MG PO SCH (10:10)
[2018-04-11] MEDS: ALLOPURINOL 300 MG TABLET (FP) PO SCH (10:11)
[2018-04-11] MEDS: buPROPion HCL 75 MG TABLET PO SCH ×2 (10:11→21:10)
--- NOTE | 2018-04-11 10:33 | PN ---
Progress Note (short form) - Note Progress Note: Resting in NAD. No CP or SOB. No acute events overnight. Intake & Output 04/08/18 04/09/18 04/10/18 04/11/18 23:59 23:59 23:59 23:59 Intake Total 730 1680 2235 925 Balance 730 1680 2235 925 Last Vital Signs Temp Pulse Resp BP Pulse Ox 98.5 F 71 20 133/59 L 98 04/11/18 06:00 04/11/18 06:00 04/11/18 06:00 04/11/18 06:00 04/10/18 21:00 Active Medications Albuterol/Ipratropium (Duoneb -) 1 amp NEB Q6H PRN PRN Reason: SHORTNESS OF BREATH Last Admin: 04/09/18 06:20 Dose: 1 amp Albuterol/Ipratropium (Duoneb -) 1 amp NEB RQID [facility] Last Admin: 04/11/18 10:12 Dose: Not Given Allopurinol (Zyloprim -) 300 mg PO DAILY [facility] Last Admin: 04/11/18 10:11 Dose: 300 mg Aspirin (Ecotrin -) 81 mg PO BID [facility] Last Admin: 04/11/18 09:58 Dose: 81 mg Bupropion HCl (Wellbutrin -) 150 mg PO BID [facility] Last Admin: 04/11/18 10:11 Dose: 150 mg Clonazepam (Klonopin -) 1 mg PO TID [facility] Last Admin: 04/11/18 05:29 Dose: 1 mg Docusate Sodium (Colace -) 300 mg PO HS [facility] Last Admin: 04/10/18 22:14 Dose: 300 mg Gabapentin (Neurontin -) 400 mg PO TID [facility] Last Admin: 04/11/18 05:29 Dose: 400 mg Heparin Sodium (Porcine) (Heparin -) 5,000 unit SQ TID [facility] Last Admin: 04/11/18 05:29 Dose: 5,000 unit Hydroxyurea (Hydrea -) 1,500 mg PO BID [facility] Last Admin: 04/11/18 10:09 Dose: 1,500 mg Sodium Chloride (Normal Saline -) 1,000 mls @ 75 mls/hr IV ASDIR [facility] Last Admin: 04/11/18 10:09 Dose: Not Given Levetiracetam (Keppra -) 1,000 mg PO BID [facility] Last Admin: 04/11/18 09:58 Dose: 1,000 mg Levothyroxine Sodium (Synthroid -) 25 mcg PO DAILY@0700 [facility] Last Admin: 04/11/18 06:31 Dose: 25 mcg Melatonin (Melatonin) 5 mg PO HS PRN PRN Reason: INSOMNIA Last Admin: 04/06/18 21:08 Dose: 5 mg Pt's Own Med ( (Imatinib 400mg)) 1 each PO DAILY [facility] Last Admin: 04/11/18 10:10 Dose: 1 each Oxycodone HCl (Roxicodone -) 7.5 mg PO Q8H PRN PRN Reason: PAIN LEVEL 4 - 6 Last Admin: 04/11/18 03:43 Dose: 7.5 mg Pantoprazole Sodium (Protonix -) 40 mg PO DAILY [facility] Last Admin: 04/11/18 09:58 Dose: 40 mg Pramipexole Dihydrochloride 0. 25 mg/ Pramipexole Dihydrochloride 0.5 mg 0.75 mg PO TID [facility] Last Admin: 04/11/18 05:31 Dose: 0.75 mg Senna (Senna -) 1 tab PO DAILY PRN PRN Reason: CONSTIPATION Last Admin: 04/08/18 21:35 Dose: 1 tab Tizanidine HCl (Tizanidine Hcl) 4 mg PO TID PRN PRN Reason: MUSCLE SPASMS Last Admin: 04/10/18 06:34 Dose: 4 mg Constitutional: Yes: NAD Eyes: Yes: WNL HENT: Yes: WNL Cardiovascular: Yes: Regular Rate and Rhythm, S1, S2 Respiratory: Yes: Diminished Gastrointestinal: Yes: Normal Bowel Sounds, Soft Extremities: Yes: WNL Edema: No Labs: Laboratory Results - last 24 hr 04/09/18 04/10/18 04/11/18 14:00 06:30 07:00 WBC 9.4 RBC 3.76 Hgb 9.4 L Hct 30.6 L MCV 81.4 MCH 25.1 L MCHC 30.8 L RDW 16.4 H Plt Count 1112 H MPV 8.7 Absolute Neuts (auto) 5.5 Total Counted 100 Neutrophils % [employer] 58.6 Neutrophils % (Manual) 51.0 Band Neutrophils % 0.0 Lymphocytes % [employer]visor 33.3 D Lymphocytes % (Manual) 36.0 D Monocytes % [employer] Supervisor 2.7 L Monocytes % (Manual) 4 Eosinophils % [employer] Supervisor 4.7 H Eosinophils % (Manual) 6.0 H Basophils % [employer] Supervisor 0.7 Basophils % (Manual) 3.0 H Nucleated RBC % 0 Poikilocytosis 1+ Anisocytosis 1+ Microcytosis 1+ Sodium Potassium Chloride Carbon Dioxide Anion Gap BUN Creatinine Creat Clearance w eGFR Random Glucose Uric Acid Calcium Phosphorus Magnesium Total Bilirubin AST ALT Alkaline Phosphatase LD Total Total Protein Albumin Urine Eosinophils None seen 04/11/18 07:00 WBC RBC Hgb Hct MCV MCH MCHC RDW Plt Count MPV Absolute Neuts (auto) Total Counted Neutrophils % Neutrophils % (Manual) Band Neutrophils % Lymphocytes % Lymphocytes % (Manual) Monocytes % Monocytes % (Manual) Eosinophils % Eosinophils % (Manual) Basophils % Basophils % (Manual) Nucleated RBC % Poikilocytosis Anisocytosis Microcytosis Sodium 140 Potassium 4.9 Chloride 105 Carbon Dioxide 30 Anion Gap 6 L BUN 26 H Creatinine 1.2 Creat Clearance w eGFR 44.04 Random Glucose 70 L Uric Acid 4.4 Calcium 8.7 Phosphorus 5.2 H Magnesium 2.1 Total Bilirubin 0.2 AST 45 H ALT 37 Alkaline Phosphatase 146 H LD Total 204 Total Protein 5.8 L Albumin 2.8 L Urine Eosinophils Problem List - Problems (1) CML (chronic myelocytic leukemia) Code(s): C92.10 - CHRONIC MYELOID LEUK, BCR/ABL-POSITIVE, NOT ACHIEVE REMIS (2) Hypertension Code(s): I10 - ESSENTIAL (PRIMARY) HYPERTENSION (3) Thrombocytosis Code(s): D47.3 - ESSENTIAL (HEMORRHAGIC) THROMBOCYTHEMIA (4) Multiple sclerosis Code(s): G35 - MULTIPLE SCLEROSIS Assessment/Plan Pseudoseizures Shortness of breath improved PE ruled out CML Thrombocytosis 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 - O2 to keep Spo2 >90% - Current Meds - inhaled bronchodilators - DVT prophylaxis - No Pulmonary contraindication for D/C planning Dr Major
[2018-04-11 11:06] LABS: ANISOCYTOSIS 2+; MACROCYTOSIS 0; PLATELET ESTIMATE INCREASED
--- NOTE | 2018-04-11 12:16 | PN ---
Progress Note (short form) - Note Progress Note: Patient seen and examined at bedside sitting up in bed all questions answered patient feels "disgusted" today but wont tell me why creatinine improved with IVF today now 1.2 Much more awake and alert today Platelets improved to 1112 today Vital Signs Temperature 98.5 F 04/11/18 06:00 Pulse Rate 71 04/11/18 06:00 Respiratory Rate 20 04/11/18 06:00 Blood Pressure 133/59 L 04/11/18 06:00 O2 Sat by Pulse Oximetry (%) 98 04/10/18 21:00 Constitutional: Yes: Obese, awake and alert Eyes: Yes: Conjunctiva Clear, EOM Intact HENT: Yes: Atraumatic Neck: Yes: Supple. Cardiovascular: Yes: Regular Rate and Rhythm, S1, S2. No lower extremity edema Respiratory: diminished breath sounds bilaterally Faint crackles bilaterally Gastrointestinal: Yes: Normal Bowel Sounds, Soft, Abdomen, Obese. No: Tenderness Musculoskeletal: Yes: CN 2-12 intact able to move all extremities. 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 Problem List: CML Chest pain Thrombocytosis HTN CHF Hypothyroidism PE ruled out already r/o tumor lysis syndrome acute kidney injury Plan: nephrology consult appreciated avoid nephrotoxic drugs Off lasix and losartan Hold ARB and diuretics. continue IVF NS @ 75ml/hr-per nephrology cardiology consult appreciated Continue Gleevac 400mg po Daily Continue Hyroxyurea 1500mg po BID-increased yesterday Cytogenetics, Flow cytometry, and FISH studies-called pathology and studies were already sent Will need daily CBC CMP Uric acid and LDH continue aspirin Will follow
--- NOTE | 2018-04-11 14:30 | PN ---
Progress Note, Physician Chief Complaint: The patient seen in her bed. comfortable. Denies any specific complaints. No chest pain. No shortness of breath No urinary complaints. History of Present Illness: 73 year old woman with hx of CML, Hypertension, hx of ADELA who presented with increaseing plt counts and chest pain with ADELA - Current Medication List Current Medications: Active Medications Albuterol/Ipratropium (Duoneb -) 1 amp NEB Q6H PRN PRN Reason: SHORTNESS OF BREATH Last Admin: 04/09/18 06:20 Dose: 1 amp Albuterol/Ipratropium (Duoneb -) 1 amp NEB RQID [facility] Last Admin: 04/11/18 13:09 Dose: 1 amp Allopurinol (Zyloprim -) 300 mg PO DAILY [facility] Last Admin: 04/11/18 10:11 Dose: 300 mg Aspirin (Ecotrin -) 81 mg PO BID [facility] Last Admin: 04/11/18 09:58 Dose: 81 mg Bupropion HCl (Wellbutrin -) 150 mg PO BID [facility] Last Admin: 04/11/18 10:11 Dose: 150 mg Clonazepam (Klonopin -) 1 mg PO TID [facility] Last Admin: 04/11/18 13:49 Dose: 1 mg Docusate Sodium (Colace -) 300 mg PO HS [facility] Last Admin: 04/10/18 22:14 Dose: 300 mg Gabapentin (Neurontin -) 400 mg PO TID [facility] Last Admin: 04/11/18 13:49 Dose: 400 mg Heparin Sodium (Porcine) (Heparin -) 5,000 unit SQ TID [facility] Last Admin: 04/11/18 13:49 Dose: 5,000 unit Hydroxyurea (Hydrea -) 1,500 mg PO BID [facility] Last Admin: 04/11/18 10:09 Dose: 1,500 mg Sodium Chloride (Normal Saline -) 1,000 mls @ 75 mls/hr IV ASDIR [facility] Last Admin: 04/11/18 10:09 Dose: Not Given Levetiracetam (Keppra -) 1,000 mg PO BID [facility] Last Admin: 04/11/18 09:58 Dose: 1,000 mg Levothyroxine Sodium (Synthroid -) 25 mcg PO DAILY@0700 [facility] Last Admin: 04/11/18 06:31 Dose: 25 mcg Melatonin (Melatonin) 5 mg PO HS PRN PRN Reason: INSOMNIA Last Admin: 04/06/18 21:08 Dose: 5 mg Pt's Own Med ( (Imatinib 400mg)) 1 each PO DAILY [facility] Last Admin: 04/11/18 10:10 Dose: 1 each Oxycodone HCl (Roxicodone -) 7.5 mg PO Q8H PRN PRN Reason: PAIN LEVEL 4 - 6 Last Admin: 04/11/18 03:43 Dose: 7.5 mg Pantoprazole Sodium (Protonix -) 40 mg PO DAILY [facility] Last Admin: 04/11/18 09:58 Dose: 40 mg Pramipexole Dihydrochloride 0. 25 mg/ Pramipexole Dihydrochloride 0.5 mg 0.75 mg PO TID [facility] Last Admin: 04/11/18 05:31 Dose: 0.75 mg Senna (Senna -) 1 tab PO DAILY PRN PRN Reason: CONSTIPATION Last Admin: 04/08/18 21:35 Dose: 1 tab Tizanidine HCl (Tizanidine Hcl) 4 mg PO TID PRN PRN Reason: MUSCLE SPASMS Last Admin: 04/10/18 06:34 Dose: 4 mg - Objective Vital Signs: Vital Signs Temperature 98.5 F 04/11/18 06:00 Pulse Rate 71 04/11/18 06:00 Respiratory Rate 20 04/11/18 06:00 Blood Pressure 133/59 L 04/11/18 06:00 O2 Sat by Pulse Oximetry (%) 98 04/10/18 21:00 Constitutional: Yes: Well Nourished, No Distress, Anxious Eyes: Yes: Conjunctiva Clear HENT: Yes: Normocephalic Neck: Yes: Supple Cardiovascular: Yes: S1, S2 Respiratory: Yes: CTA Bilaterally, Diminished Gastrointestinal: Yes: Normal Bowel Sounds, Abdomen, Obese Genitourinary: No: Bladder Distention, CVA Tenderness - Left, CVA Tenderness - Right, Hematuria Musculoskeletal: Yes: Joint Stiffness Neurological: Yes: Alert, Oriented Psychiatric: Yes: Alert Labs: CBC, BMP 04/11/18 07:00 04/11/18 07:00 INR, PTT INR 1.09 (0.83-1.09) 04/03/18 19:11 Assessment/Plan 73 year old woman with hx of CML, Hypertension, hx of ADELA who presented with increaseing plt counts and chest pain with ADELA. The renal functions have improved and is trending towards her baseline. Will continue to follow with you. Mayte Price MD
[2018-04-11] MEDS ORDERED: PT OWN MED DRAWER 7, Y5N ONE ×3 (15:06→20:34)
--- NOTE | 2018-04-11 17:18 | PATH ---
Surgical Pathology Report Patient Name: NICK COOK [facility]. Rec. #: [id number] /Age/Gender: 1945 (Age: 73) / F Account: [id number] Location: [facility] MED/SURG Taken: 04/04/2018 Received: 04/04/2018 Reported: 04/11/2018 Physicians: Paris Blanco M.D. PHYSICIAN EMERGENCY DEPT Specimen(s) Received 2 GREEN TOP TUBES Clinical History 73 yr old female with multiple medical problems including CML presents with thrombocytosis and chest pain Final Diagnosis COMPREHENSIVE FLOW PANEL performed and interpreted at [place], [place] ([id number]) shows the following: INTERPRETATION: THE CD34+ MYELOBLASTS ARE 0.2% OF TOTAL EVENTS, SEE COMMENT. SLIGHTLY LEFT-SHIFTED GRANULOCYTES. THERE IS NO EVIDENCE OF B OR T-CELL PROLIFERATIVE DISORDERS. MYELOPROLIFERATIVE NEOPLASM FISH PANEL performed and interpreted at [place], [place] ([id number]) shows the following: INTERPRETATION: THE BCR/ABL1 t(9;22) TRANSLOCATION IS DETECTED. NO EVIDENCE OF DELETION 7q OR MONOSOMY 7 IS PRESENT. NO EVIDENCE OF TRISOMY 8 (+8) IS PRESENT. NO EVIDENCE OF DELETION 20q12 IS PRESENT. CYTOGENETIC KARYOTYPE ANALYSIS performed and interpreted at [facility] ([id number]) shows the following: RESULTS: 46,XX,t(9;22)(q34;q11.2)[11]/46,XX[1] INTERPRETATION: ABNORMAL KARYOTYPE WITH t(9;22)(q34;q11.2)/BCR-ABL1, CONSISTENT WITH CHRONIC MYELOGENOUS LEUKEMIA. This unstimulated peripheral blood specimen yielded only twelve analyzable metaphase cells. Eleven of these cells exhibited a reciprocal translocation between the long arms of chromosomes 9 and 22. The remaining one cell had a normal chromosome complement. The t(9;22) is consistent with a diagnosis of chronic myelogenous leukemia. At the molecular level, this structural rearrangement is associated with a BCR/ABL1 fusion gene rearrangement encoding a unique leukemia-specific protein. Correlation with other clinical and hematologic data and periodic PCR and cytogenetic/FISH and molecular monitoring are recommended. See [facility] report ([id number], [id number] and [id number]) for additional details. Electronically Signed Kala Jimenez M.D. Gross Description Received are 2 green top tubes of blood which are sent to [facility]. 04/05/2018
[2018-04-11] MEDS: DOCUSATE SODIUM 100 MG CAPSULE (FP) PO SCH (21:03)
--- NOTE | 2018-04-11 21:43 | PN ---
Progress Note, Physician Chief Complaint: AWAKE LETHARGIC REFUSING SNF PLACEMENT - Current Medication List Current Medications: Active Medications Allopurinol (Zyloprim -) 300 mg PO DAILY [facility] Last Admin: 04/11/18 10:11 Dose: 300 mg Aspirin (Ecotrin -) 81 mg PO BID [facility] Last Admin: 04/11/18 21:05 Dose: 81 mg Bupropion HCl (Wellbutrin -) 150 mg PO BID [facility] Last Admin: 04/11/18 21:10 Dose: 150 mg Clonazepam (Klonopin -) 1 mg PO TID [facility] Last Admin: 04/11/18 21:04 Dose: 1 mg Docusate Sodium (Colace -) 300 mg PO HS [facility] Last Admin: 04/11/18 21:03 Dose: 300 mg Gabapentin (Neurontin -) 400 mg PO TID [facility] Last Admin: 04/11/18 21:04 Dose: 400 mg Heparin Sodium (Porcine) (Heparin -) 5,000 unit SQ TID [facility] Last Admin: 04/11/18 21:10 Dose: 5,000 unit Hydroxyurea (Hydrea -) 1,500 mg PO BID [facility] Last Admin: 04/11/18 21:04 Dose: 1,500 mg Sodium Chloride (Normal Saline -) 1,000 mls @ 75 mls/hr IV ASDIR [facility] Last Admin: 04/11/18 10:09 Dose: Not Given Levetiracetam (Keppra -) 1,000 mg PO BID [facility] Last Admin: 04/11/18 21:06 Dose: 1,000 mg Levothyroxine Sodium (Synthroid -) 25 mcg PO DAILY@0700 [facility] Last Admin: 04/11/18 06:31 Dose: 25 mcg Melatonin (Melatonin) 5 mg PO HS PRN PRN Reason: INSOMNIA Last Admin: 04/06/18 21:08 Dose: 5 mg Pt's Own Med ( (Imatinib 400mg)) 1 each PO DAILY [facility] Last Admin: 04/11/18 10:10 Dose: 1 each Oxycodone HCl (Roxicodone -) 7.5 mg PO Q8H PRN PRN Reason: PAIN LEVEL 4 - 6 Last Admin: 04/11/18 20:20 Dose: 7.5 mg Pantoprazole Sodium (Protonix -) 40 mg PO DAILY [facility] Last Admin: 04/11/18 09:58 Dose: 40 mg Pramipexole Dihydrochloride 0. 25 mg/ Pramipexole Dihydrochloride 0.5 mg 0.75 mg PO TID [facility] Last Admin: 04/11/18 21:05 Dose: 0.75 mg Senna (Senna -) 1 tab PO DAILY PRN PRN Reason: CONSTIPATION Last Admin: 04/08/18 21:35 Dose: 1 tab Tizanidine HCl (Tizanidine Hcl) 4 mg PO TID PRN PRN Reason: MUSCLE SPASMS Last Admin: 04/10/18 06:34 Dose: 4 mg - Objective Vital Signs: Vital Signs Temperature 98 F 04/11/18 16:30 Pulse Rate 81 04/11/18 16:30 Respiratory Rate 20 04/11/18 16:30 Blood Pressure 162/66 04/11/18 16:30 O2 Sat by Pulse Oximetry (%) 98 04/10/18 21:00 Constitutional: Yes: Mild Distress Eyes: Yes: Other HENT: Yes: WNL Neck: Yes: WNL Cardiovascular: Yes: WNL Respiratory: Yes: WNL Gastrointestinal: Yes: WNL Genitourinary: Yes: WNL Musculoskeletal: Yes: Muscle Weakness Extremities: Yes: WNL Edema: Yes Peripheral Pulses WNL: Yes Integumentary: Yes: WNL Wound/Incision: Yes: Clean/Dry Neurological: Yes: Confusion, Weakness ...Motor Strength: LLE, RLE Psychiatric: Yes: Other Labs: CBC, BMP 04/11/18 07:00 04/11/18 07:00 INR, PTT INR 1.09 (0.83-1.09) 04/03/18 19:11 Problem List - Problems (1) Diabetes mellitus with hyperosmolarity Code(s): E11.00 - TYPE 2 DIAB W HYPROSM W/O NONKET HYPRGLY-HYPROS COMA ([facility]) (2) [place] cardiac risk >20% in next 10 years Code(s): Z91.89 - OTH PERSONAL RISK FACTORS, NOT ELSEWHERE CLASSIFIED (3) Restless leg syndrome Code(s): G25.81 - RESTLESS LEGS SYNDROME (4) Seizure Code(s): R56.9 - UNSPECIFIED CONVULSIONS (5) CML (chronic myelocytic leukemia) Code(s): C92.10 - CHRONIC MYELOID LEUK, BCR/ABL-POSITIVE, NOT ACHIEVE REMIS (6) Abdominal pain Code(s): R10.9 - UNSPECIFIED ABDOMINAL PAIN Qualifiers: Abdominal location: periumbilical Qualified Code(s): R10.33 - Periumbilical pain (7) Hypertension Code(s): I10 - ESSENTIAL (PRIMARY) HYPERTENSION (8) Hypothyroid Code(s): E03.9 - HYPOTHYROIDISM, UNSPECIFIED (9) Thrombocytosis Code(s): D47.3 - ESSENTIAL (HEMORRHAGIC) THROMBOCYTHEMIA Assessment/Plan ONCOLOGY EVAL FOR CML ON GLEEVAC OOB TO CHAIR PT EVAL DVT PROPHYLAXIS DM CONTROL WEAK AND FATIGUED WILL NEED SNF UNABLE TO CARE FOR HERSELF AT HOME
[2018-04-12] MEDS: SODIUM CHLORIDE 1,000 ML IV SCH (05:47)
[2018-04-12] MEDS: clonazePAM 0.5 MG TABLET PO SCH ×2 (05:49→13:31)
[2018-04-12] MEDS: GABAPENTIN 400 MG CAPSULE (FP) PO SCH ×2 (05:49→13:32)
[2018-04-12] MEDS: HEPARIN NA (PORCINE) 5,000 UNITS/ML 1ML VIAL SQ SCH ×2 (05:50→13:31)
[2018-04-12] MEDS: LEVOTHYROXINE NA 25 MCG TABLET (FP) PO SCH (06:10)
[2018-04-12] MEDS: PRAMIPEXOLE DIHYDROCHLORIDE PO SCH ×2 (06:16→13:32)
[2018-04-12] MEDS: oxyCODONE HCL 5 MG TABLET PO PRN ×2 (06:22→13:32)
--- NOTE | 2018-04-12 08:02 | DS ---
Physical Examination Vital Signs: Vital Signs Temperature 97.4 F L 04/12/18 06:00 Pulse Rate 71 04/12/18 06:00 Respiratory Rate 20 04/12/18 06:00 Blood Pressure 152/66 04/12/18 06:00 O2 Sat by Pulse Oximetry (%) 98 04/10/18 21:00 Findings/Remarks: WEAK TIRED, CONCERNED ABOUT HER REMOTE WHEELCHAIR WILL ASK H[employer] STRINGER TO ARRANGE BRINGING IT FROM HOME TO SNF Constitutional: Yes: Mild Distress Eyes: Yes: WNL HENT: Yes: WNL Neck: Yes: WNL Cardiovascular: Yes: WNL Respiratory: Yes: WNL Gastrointestinal: Yes: Soft, Tenderness Renal/: Yes: WNL Musculoskeletal: Yes: Muscle Weakness Extremities: Yes: WNL Edema: Yes Edema: LLE: 1+, RLE: 1+ Peripheral Pulses WNL: Yes Integumentary: Yes: WNL Wound/Incision: Yes: Clean/Dry Neurological: Yes: Pre-Existing Deficit ...Motor Strength: LLE, RLE Psychiatric: Yes: Other Discharge Summary Reason For Visit: CHRONIC MYELOID LEUKEMIA Current Active Problems Chest pain (Acute) Diabetes mellitus with hyperosmolarity (Acute) [place] cardiac risk >20% in next 10 years (Acute) Restless leg syndrome (Acute) SVT (supraventricular tachycardia) (Acute) Seizure (Acute) CML (chronic myelocytic leukemia) (Chronic) Procedures: Principal: CT/LABS Hospital Course: SEIZURE D/O VERSUS PSEUDOSEIZURES, PSYCHIATRIC COMPNENT, HOWEVER TREATED WITH KEPPRA AND KLONOPIN, NO ACTIVE SEIZURES PAST 48HRS, PATIENT IS LETHARGIC AND WILL NEED SNF REHAB Condition: Improved - Instructions Diet, Activity, Other Instructions: DIABETIC/ADA NEURO CHECKS Q SHIFT FALL RISKS NEEDS WHEELCHAIR REMOTE OPERATED FROM HOME Referrals: Bran De Leon MD [Primary Care Provider] - Disposition: [facility] - Home Medications Comprehensive Discharge Medication List: Ambulatory Orders Amlodipine Besylate [Norvasc -] 2.5 mg PO DAILY 09/03/15 Sennosides [Senna] 8.6 mg PO DAILY PRN 09/03/15 Aspirin Coated [Ecotrin -] 81 mg PO DAILY #30 tablet.ec 09/10/15 Docusate Sodium [Colace -] 300 mg PO HS #30 capsule 09/10/15 Furosemide [Lasix -] 20 mg PO DAILY #30 tablet 09/10/15 Losartan Potassium [Cozaar -] 50 mg PO DAILY #30 tablet 09/10/15 clonazePAM [KlonoPIN -] 0.5 mg PO BID 11/06/17 Imatinib Mesylate [Gleevec (Nf) -] 400 mg PO DAILY #30 tablet 11/20/17 Levothyroxine [Synthroid -] 25 mcg PO DAILY@0700 #30 tablet 11/20/17 Pramipexole Dihydrochloride [Mirapex -] 0.5 mg PO TID tablet 11/20/17 levETIRAcetam [Keppra -] 1,000 mg PO BID #120 tablet 11/20/17 Tizanidine HCl [Zanaflex] 4 mg PO TID PRN #90 tablet 02/15/18 Gabapentin [Neurontin -] 400 mg PO Q8H #90 capsule 03/13/18 Hydrocodone/Acetaminophen [[place] 10-325 Tablet] 1 each PO TID PRN #90 tablet MDD 3 03/13/18 Esomeprazole Magnesium [Nexium 24Hr] 40 mg PO DAILY 04/04/18 Interferon Beta-1A [Avonex] 30 mcg IM WEEKLY 04/04/18 Allopurinol [Zyloprim -] 300 mg PO DAILY tablet 04/09/18 Hydroxyurea [Hydrea 500Mg Capsule -] 1,000 mg PO BID capsule 04/09/18 Pramipexole Dihydrochloride [Mirapex -] 0.75 mg PO TID tablet 04/09/18
[2018-04-12 08:38] LABS: ALBUMIN 2.8 g/dl (3.4-5.0); ALK PHOS 157 U/L (45-117); ANION GAP 6 MMOL/L (8-16); BILIRUBIN,TOTAL 0.3 mg/dL (0.2-1); BLOOD UREA NITROGEN 20 mg/dL (7-18); CALCIUM 9.1 mg/dL (8.5-10.1); CHLORIDE 107 mmol/L (98-107); CO2 28 mmol/L (21-32); GLUCOSE,RANDOM 67 mg/dL (74-106); LDH 193 U/L (84-246); MAGNESIUM 2.3 mg/dL (1.8-2.4); PHOSPHOROUS 5.3 mg/dL (2.5-4.9); POTASSIUM 5.3 mmol/L (3.5-5.1); SGOT/AST 44 U/L (15-37); SGPT/ALT 37 U/L (13-61); SODIUM 141 mmol/L (136-145); TOT PROT 6.1 g/dl (6.4-8.2); URIC ACID 3.8 mg/dL (2.6-7.2)
[2018-04-12 09:05] VITALS: BP 162/91; PULSE 72; TEMP 98.2
[2018-04-12 09:10] LABS: BASO % 0.5 % (0-2.0); EOS % 4.3 % (0-4.5); HEMATOCRIT 32.1 % (32.4-45.2); HEMOGLOBIN 9.7 GM/dL (10.7-15.3); LYMPH % 31.7 % (8-40); MCHC 30.3 g/dl (32.0-36.0); MEAN CELL VOLUME 82.6 fl (80-96); MEAN PLT VOLUME 8.7 fl (7.5-11.1); MONO % 2.9 % (3.8-10.2); NEUT % 60.6 % (42.8-82.8); RBC 3.89 M/mm3 (3.60-5.2); RDW 16.7 % (11.6-15.6); WHITE BLOOD COUNT 7.1 K/mm3 (4.0-10.0)
[2018-04-12 09:16] LABS: PLATELET COUNT 1191 K/MM3 (134-434)
[2018-04-12] MEDS ORDERED: PT OWN MED DRAWER 7, Y5N ONE ×3 (09:26→13:30)
[2018-04-12] MEDS: HYDROXYUREA 500 MG CAPSULE PO SCH (09:34)
[2018-04-12] MEDS: ASPIRIN COATED 81 MG TABLET.EC PO SCH (09:34)
[2018-04-12] MEDS: levETIRAcetam 500 MG TABLET (FP) PO SCH (09:35)
[2018-04-12] MEDS: buPROPion HCL 75 MG TABLET PO SCH (09:36)
[2018-04-12] MEDS: PANTOPRAZOLE 40 MG TABLET (FP) PO SCH (09:36)
[2018-04-12] MEDS: IMATINIB 400 MG PO SCH (09:36)
[2018-04-12] MEDS: ALLOPURINOL 300 MG TABLET (FP) PO SCH (09:37)
--- NOTE | 2018-04-12 10:18 | PN ---
Progress Note, Physician Chief Complaint: no chest pain or sob - Current Medication List Current Medications: Active Medications Allopurinol (Zyloprim -) 300 mg PO DAILY [facility] Last Admin: 04/12/18 09:37 Dose: 300 mg Aspirin (Ecotrin -) 81 mg PO BID [facility] Last Admin: 04/12/18 09:34 Dose: 81 mg Bupropion HCl (Wellbutrin -) 150 mg PO BID [facility] Last Admin: 04/12/18 09:36 Dose: 150 mg Clonazepam (Klonopin -) 1 mg PO TID [facility] Last Admin: 04/12/18 05:49 Dose: 1 mg Docusate Sodium (Colace -) 300 mg PO HS [facility] Last Admin: 04/11/18 21:03 Dose: 300 mg Gabapentin (Neurontin -) 400 mg PO TID [facility] Last Admin: 04/12/18 05:49 Dose: 400 mg Heparin Sodium (Porcine) (Heparin -) 5,000 unit SQ TID [facility] Last Admin: 04/12/18 05:50 Dose: 5,000 unit Hydroxyurea (Hydrea -) 1,500 mg PO BID [facility] Last Admin: 04/12/18 09:34 Dose: 1,500 mg Levetiracetam (Keppra -) 1,000 mg PO BID [facility] Last Admin: 04/12/18 09:35 Dose: 1,000 mg Levothyroxine Sodium (Synthroid -) 25 mcg PO DAILY@0700 [facility] Last Admin: 04/12/18 06:10 Dose: 25 mcg Melatonin (Melatonin) 5 mg PO HS PRN PRN Reason: INSOMNIA Last Admin: 04/06/18 21:08 Dose: 5 mg Pt's Own Med ( (Imatinib 400mg)) 1 each PO DAILY [facility] Last Admin: 04/12/18 09:36 Dose: 1 each Oxycodone HCl (Roxicodone -) 7.5 mg PO Q8H PRN PRN Reason: PAIN LEVEL 4 - 6 Last Admin: 04/12/18 06:22 Dose: 7.5 mg Pantoprazole Sodium (Protonix -) 40 mg PO DAILY [facility] Last Admin: 04/12/18 09:36 Dose: 40 mg Pramipexole Dihydrochloride 0. 25 mg/ Pramipexole Dihydrochloride 0.5 mg 0.75 mg PO TID [facility] Last Admin: 04/12/18 06:16 Dose: 0.75 mg Senna (Senna -) 1 tab PO DAILY PRN PRN Reason: CONSTIPATION Last Admin: 04/08/18 21:35 Dose: 1 tab Tizanidine HCl (Tizanidine Hcl) 4 mg PO TID PRN PRN Reason: MUSCLE SPASMS Last Admin: 04/10/18 06:34 Dose: 4 mg - Objective Vital Signs: Vital Signs Temperature 98.2 F 04/12/18 09:04 Pulse Rate 72 04/12/18 09:04 Respiratory Rate 20 04/12/18 09:04 Blood Pressure 162/91 04/12/18 09:04 O2 Sat by Pulse Oximetry (%) 98 04/10/18 21:00 Eyes: Yes: Conjunctiva Clear Cardiovascular: Yes: Regular Rate and Rhythm Respiratory: Yes: CTA Bilaterally Labs: CBC, BMP 04/12/18 06:30 04/12/18 06:30 INR, PTT INR 1.09 (0.83-1.09) 04/03/18 19:11 Laboratory Tests 04/09/18 04/10/18 04/10/18 05:30 06:30 06:30 WBC 14.8 H 12.4 H Hgb 10.3 L 9.7 L Hct 30.9 L Plt Count 1208 H Sodium 139 Potassium 5.0 BUN 33 H Creatinine 1.7 H AST ALT Alkaline Phosphatase LD Total 04/11/18 04/11/18 04/12/18 07:00 07:00 06:30 WBC 9.4 7.1 Hgb 9.4 L 9.7 L Hct 30.6 L 32.1 L Plt Count 1112 H 1191 H Sodium 140 Potassium 4.9 BUN 26 H Creatinine 1.2 AST 45 H ALT 37 Alkaline Phosphatase 146 H LD Total 204 04/12/18 06:30 WBC Hgb Hct Plt Count Sodium 141 Potassium 5.3 H BUN 20 H Creatinine 1.0 AST 44 H ALT 37 Alkaline Phosphatase 157 H LD Total Assessment/Plan MP: CML Thrombocytosis Leukocytosis Pleuritic CP with negative CTA, Echo and ECGs and serial cardiac enzymes. Pseudoseizures ARF- resolved REC: 1. Further Rx Thrombocytosis as per Oncology 2. ASA 81mg daily 3. Nuclear stress test offered, discussed: she refused as she had an adverse reaction to pharm agents previously. 4. DVT prophylaxis 5. No arrhythmias on tele for 72 hours 6. Acute renal failure: resolved with hydration and holding diuretic. D/C IVF Resume low dose amlodipine as BP is creeping back up above target
[2018-04-12] MEDS ORDERED: amLODIPine BESYLATE 2.5 MG TABLET (FP) PO SCH (10:30)
--- NOTE | 2018-04-12 13:49 | PN ---
Progress Note (short form) - Note Progress Note: Renal follow up for ADELA Pt seen and examined at the bedside feels weak and tired but no sob, cp, abd pain, N/V/D making urine off IVF Vital Signs Temperature 98.2 F 04/12/18 09:04 Pulse Rate 72 04/12/18 09:04 Respiratory Rate 20 04/12/18 09:04 Blood Pressure 162/91 04/12/18 09:04 O2 Sat by Pulse Oximetry (%) 100 04/12/18 09:00 Intake & Output 04/09/18 04/10/18 04/11/18 04/12/18 23:59 23:59 23:59 23:59 Intake Total 1680 2235 1575 900 Balance 1680 2235 1575 900 NAD RRR, NO M/R Dec Bs at lung bases soft NT/ND Trace edema in LE CBC, BMP 04/12/18 06:30 04/12/18 06:30 Current Medications Allopurinol (Zyloprim -) 300 mg PO DAILY [facility] Last Admin: 04/12/18 09:37 Dose: 300 mg Amlodipine Besylate (Norvasc -) 2.5 mg PO DAILY [facility] Last Admin: 04/12/18 10:48 Dose: 2.5 mg Aspirin (Ecotrin -) 81 mg PO BID [facility] Last Admin: 04/12/18 09:34 Dose: 81 mg Bupropion HCl (Wellbutrin -) 150 mg PO BID [facility] Last Admin: 04/12/18 09:36 Dose: 150 mg Clonazepam (Klonopin -) 1 mg PO TID [facility] Last Admin: 04/12/18 13:31 Dose: 1 mg Docusate Sodium (Colace -) 300 mg PO HS [facility] Last Admin: 04/11/18 21:03 Dose: 300 mg Gabapentin (Neurontin -) 400 mg PO TID [facility] Last Admin: 04/12/18 13:32 Dose: 400 mg Heparin Sodium (Porcine) (Heparin -) 5,000 unit SQ TID [facility] Last Admin: 04/12/18 13:31 Dose: 5,000 unit Hydroxyurea (Hydrea -) 1,500 mg PO BID [facility] Last Admin: 04/12/18 09:34 Dose: 1,500 mg Levetiracetam (Keppra -) 1,000 mg PO BID [facility] Last Admin: 04/12/18 09:35 Dose: 1,000 mg Levothyroxine Sodium (Synthroid -) 25 mcg PO DAILY@0700 [facility] Last Admin: 04/12/18 06:10 Dose: 25 mcg Melatonin (Melatonin) 5 mg PO HS PRN PRN Reason: INSOMNIA Last Admin: 04/06/18 21:08 Dose: 5 mg Pt's Own Med ( (Imatinib 400mg)) 1 each PO DAILY [facility] Last Admin: 04/12/18 09:36 Dose: 1 each Oxycodone HCl (Roxicodone -) 7.5 mg PO Q8H PRN PRN Reason: PAIN LEVEL 4 - 6 Last Admin: 04/12/18 13:32 Dose: 7.5 mg Pantoprazole Sodium (Protonix -) 40 mg PO DAILY [facility] Last Admin: 04/12/18 09:36 Dose: 40 mg Pramipexole Dihydrochloride 0. 25 mg/ Pramipexole Dihydrochloride 0.5 mg 0.75 mg PO TID [facility] Last Admin: 04/12/18 13:32 Dose: 0.75 mg Senna (Senna -) 1 tab PO DAILY PRN PRN Reason: CONSTIPATION Last Admin: 04/08/18 21:35 Dose: 1 tab Tizanidine HCl (Tizanidine Hcl) 4 mg PO TID PRN PRN Reason: MUSCLE SPASMS Last Admin: 04/10/18 06:34 Dose: 4 mg 73 year old woman with hx of CML, Hypertension, hx of ADELA who presented with increaseing plt counts and chest pain with ADELA #ADELA (Cr 0.9 to 1.3) r/o hemodynamic injury from ARB + diuretics #Thrombocytosis #CML #Anemia #Chest pain now resolved Renal function now improved to baseline would not restart diuretics at this time as pt w/o evidence of edema Can reattempt MAINOR/ARB as outpatient with close monitoring of renal function Heme following for thrombocytosis and anemia discharge planning to rehab would repeat labs in 1-2 weeks as outpatient Agree with starting CCB for Bp control goal BP < 130/80 Roman Santillan DO
[2018-04-12 15:21] LABS: ANISOCYTOSIS 2+; MACROCYTOSIS 1+; OVALOCYTE 2+; PLATELET ESTIMATE INCREASED; TEAR DROP CELLS 1+
--- NOTE | 2018-04-12 15:59 | PN ---
Progress Note (short form) - Note Progress Note: PULMONARY Resting in NAD. No CP or SOB. Constitutional: Yes: NAD Eyes: Yes: WNL HENT: Yes: WNL Cardiovascular: Yes: Regular Rate and Rhythm, S1, S2 Respiratory: Yes: Diminished Gastrointestinal: Yes: Normal Bowel Sounds, Soft Extremities: Yes: WNL Edema: No Assessment/Plan Pseudoseizures Shortness of breath improved PE ruled out CML Thrombocytosis 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 - O2 to keep Spo2 >90% - Current Meds - inhaled bronchodilators - DVT prophylaxis - No Pulmonary contraindication for D/C planning Dr Wilson
== END 2018-04-12 15:54 | DRG 100 ==
LOC: JER 17:24 → JERBED 23:33 → J4W 04-04 15:29 → JICU 04-04 20:11 → J8W 04-05 16:44 → J4W 04-06 16:38 → J8W 04-10 13:09
PROVIDERS: ADMIT Internal Medicine; ATTEND Family Medicine
DX: R56.9 Unspecified convulsions (principal); E11.00 Type 2 diabetes mellitus with hyperosmolarity without nonketotic hyperglycemic-hyperosmolar coma (NKHHC); C92.10 Chronic myeloid leukemia, BCR/ABL-positive, not having achieved remission; C34.92 Malignant neoplasm of unspecified part of left bronchus or lung; I47.1 Supraventricular tachycardia; N17.9 Acute kidney failure, unspecified; F40.01 Agoraphobia with panic disorder; R07.9 Chest pain, unspecified; D47.3 Essential (hemorrhagic) thrombocythemia; E03.9 Hypothyroidism, unspecified; G25.81 Restless legs syndrome; G35 Multiple sclerosis; N18.3 Chronic kidney disease, stage 3 (moderate); D64.9 Anemia, unspecified; D72.829 Elevated white blood cell count, unspecified; K21.9 Gastro-esophageal reflux disease without esophagitis; I12.9 Hypertensive chronic kidney disease with stage 1 through stage 4 chronic kidney disease, or unspecified chronic kidney disease; E11.22 Type 2 diabetes mellitus with diabetic chronic kidney disease
CPT/HCPCS: 36415; 36600; 70450-TC; 71045-TC-FY; 71275-TC; 80048; 80053; 80177; 81003; 81015; 82550; 82570; 82803; 82962; 83615; 83735; 84100; 84146; 84300; 84443; 84484; 84540; 84550; 85025; 85610; 85730; 86850; 86900; 86901; 87205; 93005; 93010; 93306-TC; 93970-TC; 94640; 95816; 97116-GP; 97162-GP; 99284-25; J0131; J1644; J7030; J8999

== ENCOUNTER 2018-10-23 23:01 | Inpatient (IN) | payer OTHER | END 2018-10-29 20:20 | disposition home or self-care (01) | LOC: JERBED 10-24 01:34 → J8W 10-28 20:15 → JER 23:01 → J8W 10-24 05:40 ==

== ENCOUNTER 2018-11-22 23:46 | Emergency (ER) | payer OTHER ==
--- NOTE | 2018-11-23 00:07 | PDOC ---
History of Present Illness - General Chief Complaint: Pain Stated Complaint: ABDOMINAL PAIN Time Seen by Provider: 11/23/18 00:02 History Source: Patient Exam Limitations: No Limitations - History of Present Illness Initial Comments: 73 yo F w a hx of CML, MS, NIDDM, seizure v pseudoseizure, Thromboycythemia, asthma/COPD, hypothyroidism, OA, prior CVA, CKD3, fibromyalgia, morbid obesity, spinal stenosis, anxiety/depression, and a h/o med noncompliance presents to the [facility] for abdominal pain which she rates 10/10. The patient states the pain is worse in the epigastric region and radiates up her throat. She describes the pain as a sharp and burning sensation which occasionally radiates to her back. The patient states she has been experiencing this abdominal pain for weeks now but it was particularly bad today. The patient states she took hydrocodone earlier today which didn't help her pain but zantac and mylanta did moderately help her pain for a short period of time. The patient endorses chronic nausea and daily emesis from her medications. She states her vomiting was NBNB. She also endorses one episode of loose stools earlier today which was not bloody. She states she has been passing flatus per usual. Patient denies recent fevers, chills, headache, blurry vision, neck pain, dysuria, frequency, or urgency. PCP: Dr. De Leon Oncologist: Dr. Toledo Allergies: Sulfa Social Hx: Patient lives alone. Denies current smoking, drinking, or other substance usage PSH: appendectomy, cholecystectomy, umbilical/ventral hernia Past History - Past Medical History Allergies/Adverse Reactions: Allergies Allergy/AdvReac Type Severity Reaction Status Date / Time Sulfa (Sulfonamide Allergy Severe Hives Verified 02/04/18 10:36 Antibiotics) Home Medications: Ambulatory Orders Sennosides [Senna] 8.6 mg PO DAILY PRN 09/03/15 Docusate Sodium [Colace -] 300 mg PO HS #30 capsule 09/10/15 Furosemide [Lasix -] 20 mg PO DAILY #30 tablet 09/10/15 Imatinib Mesylate [Gleevec (Nf) -] 400 mg PO DAILY #30 tablet 11/20/17 levETIRAcetam [Keppra -] 1,000 mg PO BID #120 tablet 11/20/17 Gabapentin [Neurontin -] 400 mg PO Q8H #90 capsule 03/13/18 Interferon Beta-1A [Avonex] 30 mcg IM WEEKLY 04/04/18 Tizanidine HCl [Zanaflex] 4 mg PO TID PRN #90 tablet 06/14/18 Clonazepam 1 mg PO BID 09/12/18 Docusate Sodium [Colace -] 100 mg PO DAILY 09/12/18 Gabapentin [Neurontin -] 400 mg PO Q8H 09/12/18 Hydrocodone/Acetaminophen [Hydrocodone-Acetamin 10-325 mg] 1 each PO TID Imatinib Mesylate [GLEEVEC (Nf) -] 400 mg PO DAILY 09/12/18 Interferon Beta-1A/Albumin [Avonex 30 Mcg Vial Kit] 30 mcg IM WEEKLY 09/12/18 Levetiracetam 1,000 mg PO BID 09/12/18 Levothyroxine [Synthroid -] 25 mcg PO DAILY 09/12/18 Losartan Potassium [Cozaar -] 50 mg PO DAILY 09/12/18 Ondansetron [Zofran Odt -] 4 mg SL Q8H PRN #12 od.tablet 09/12/18 Albuterol Sulfate Inhaler - [Ventolin HFA Inhaler -] 2 inh PO Q4H #1 inh Levothyroxine [Synthroid -] 25 mcg PO DAILY 09/25/18 Quetiapine Fumarate [Seroquel -] 25 mg PO HS 09/25/18 Amlodipine Besylate 5 mg PO DAILY 10/23/18 Hydrocodone/Acetaminophen [[place] 10-325 Tablet] 1 each PO QID PRN #120 tablet MDD 4 10/23/18 Levothyroxine [Synthroid -] 25 mcg PO DAILY 10/23/18 Losartan Potassium [Cozaar -] 50 mg PO DAILY 10/23/18 Pramipexole Dihydrochloride [Mirapex -] 0.5 mg PO BID 10/23/18 Quetiapine Fumarate [Seroquel -] 25 mg PO HS 10/23/18 Cephalexin Monohydrate [Keflex -] 500 mg PO BID #8 capsule 10/29/18 Nystatin Ointment [Mycostatin Ointment -] 1 applic TP BID #1 tube 10/29/18 Pantoprazole Sodium [Protonix -] 40 mg PO DAILY #30 tablet.ec 10/29/18 Patient's Own Medication [Patient's Own Med (Nf) -] 1 each PO DAILY med Vancomycin Oral Solution 250 mg PO Q6HPO 5 Days #1 bottle 10/29/18 levETIRAcetam [Keppra -] 1,000 mg PO BID #120 tablet 10/29/18 oxyCODONE HCL [Roxicodone -] 10 mg PO Q6H PRN tablet MDD 8 10/29/18 Anemia: No Asthma: Yes Cancer: Yes (luekemia and lung) Cardiac Disorders: No CVA: Yes COPD: No CHF: No Dementia: No Diabetes: Yes GI Disorders: Yes Disorders: Yes (HAD SURGERY FOR KIDNEY STONES) HTN: Yes Hypercholesterolemia: No Liver Disease: No Seizures: Yes Thyroid Disease: Yes - Surgical History Abdominal Surgery: No Appendectomy: Yes Cardiac Surgery: No Cholecystectomy: No Lung Surgery: Yes (2012 RIGHT lobectomy for lung cancer,NO CHEMO OR RT) Neurologic Surgery: No Orthopedic Surgery: Yes (left knee/ right hip) - Immunization History Immunization Up to Date: Yes - Suicide/Smoking/Psychosocial Hx Smoking Status: No Smoking History: Former smoker Have you smoked in the past 12 months: No Number of Cigarettes Smoked Daily: 0 If you are a former smoker, when did you quit?: 30 years ago 'Breaking Loose' booklet given: 10/24/18 Hx Alcohol Use: No Drug/Substance Use Hx: No Substance Use Type: None Hx Substance Use Treatment: No Review of Systems - Review of Systems Able to Perform ROS?: Yes Comments:: CONSTITUTIONAL: No fever, no chills, no fatigue EYES: No visual changes ENT: No ear pain, no sore throat CARDIOVASCULAR: No chest pain, no palpitations RESPIRATORY: No cough, no SOB GI: + abdominal pain, + nausea, + vomiting, no constipation, + diarrhea GENITOURINARY: No dysuria, no frequency, no hematuria MUSKULOSKELETAL: No backpain, no joint pain, no myalgias SKIN: No rash NEURO: No headache *Physical Exam - Physical Exam Comments: CONSTITUTIONAL: Patient complains of significant abdominal pain. Well-appearing ; well-nourished HEAD: Normocephalic; atraumatic EYES: PERRL; EOM intact ENMT: External appears normal; normal oropharynx NECK: Supple; non-tender; no cervical lymphadenopathy CARD: Normal S1, S2; no murmurs, rubs, or gallops RESP: CTAB. No wheezes, rhonchi, or rales ABD: There is diffuse abdominal discomfort, worse in the epigastric region. The abdomen is soft but the patient is guarding. There are normal bowel sounds. EXT: Limited ROM in all four extremities; non-tender to palpation; distal pulses intact SKIN: Warm, dry, no rash NEURO: No focal neurological deficiencies. ED Treatment Course - LABORATORY CBC & Chemistry Diagram: 11/23/18 00:28 11/23/18 00:28 Medical Decision Making - Medical Decision Making 73 yo F w a hx of CML, MS, NIDDM, seizure v pseudoseizure, Thromboycythemia, asthma/COPD, hypothyroidism, OA, prior CVA, CKD3, fibromyalgia, morbid obesity, spinal stenosis, anxiety/depression, and a h/o med noncompliance presents to the [facility] for abdominal pain which she rates 10/10. VS: hypertensive, tachypneic, otherwise wnl DDx IBNLT: GERD, PUD, gastritis, gastroenteritis, cholecystitis, pancreatitis, colitis, SBO, AAA, renal colic, uti/pylo Plan: Labs, Urine, EKG, IV hydration, GI cocktail, analgesia, CTAP, re-assess. Labs unremarkable. The patient was not adequately pain controlled after Pepcid, maalox and tylenol. - Patient refused viscous lidocaine, took dicyclomine and reglan with minimal relief. - We offered the patient morphine and encouraged a cat scan but the patient said she always gets cat scans and they never help her so she said she wants to go home. We discharged the patient recommending urgent GI follow up with her GI doctor Dr. Bains. She stated she will go and see him for follow up this week. *DC/Admit/Observation/Transfer Diagnosis at time of Disposition: Abdominal pain - Discharge Dispostion Disposition: HOME Condition at time of disposition: Stable Decision to Admit order: No - Referrals Referrals: Bran De Leon MD [Primary Care Provider] - Parrish Bains MD [Staff Physician] - - Patient Instructions Printed Discharge Instructions: Acute Abdominal Pain Additional Instructions: You came into the ER with abdominal pain. Please make sure to follow up with a stomach doctor in the next 3 to 5 days to make sure your abdominal pain is being taken care of. Come back to the ER immediately if your pain worsens or you have any other new or worsening concerns. thank you for coming to the [facility] ER. We hope you feel better soon! Print Language: SPANISH - Post Discharge Activity
[2018-11-23] MEDS ORDERED: ACETAMINOPHEN 1000 MG/100 ML VIAL (NON FORMULARY) IVPB ONE (00:13)
[2018-11-23] MEDS ORDERED: FAMOTIDINE 20 MG/50 ML IVPB 20 MG/50 ML MG IVPB ONE (00:13)
[2018-11-23] MEDS ORDERED: SODIUM CHLORIDE 500 ML IV STA (00:13)
[2018-11-23] MEDS ORDERED: MAG HYDROX/AL HYDROX/SIMETH -MYLANTA- ORAL SUSPENSION PO ONE (00:16)
[2018-11-23] MEDS ORDERED: ACETAMINOPHEN INJECTION 100 ML IVPB ONE (00:37)
[2018-11-23 00:50] VITALS: TEMP 97.8; BMI 34.0
[2018-11-23] MEDS ORDERED: MAG HYDROX/AL HYDROX/SIMETH 30 ML UNIT-DOSE CUP ONE (00:51)
[2018-11-23] MEDS ORDERED: DICYCLOMINE HCL 20 MG/2 ML AMPUL IM ONE (01:02)
[2018-11-23] MEDS ORDERED: METOCLOPRAMIDE HCL INJECTION 10 MG/2 ML VIAL IVPUSH ONE (01:02)
[2018-11-23] MEDS ORDERED: LIDOCAINE VISCOUS 2% ORAL/TOP 20 ML UNIT-DOSE CUP MM ONE (01:05)
[2018-11-23 01:08] LABS: BASO % 0.5 % (0-2.0); EOS % 3.5 % (0-4.5); HEMATOCRIT 27.9 % (32.4-45.2); HEMOGLOBIN 9.4 GM/dL (10.7-15.3); LYMPH % 46.4 % (8-40); MCH 30.8 pg (25.7-33.7); MCHC 33.7 g/dl (32.0-36.0); MEAN CELL VOLUME 91.5 fl (80-96); MEAN PLT VOLUME 7.1 fl (7.5-11.1); MONO % 20.2 % (3.8-10.2); NEUT % 29.4 % (42.8-82.8); PLATELET COUNT 193 K/MM3 (134-434); RBC 3.05 M/mm3 (3.60-5.2); RDW 14.3 % (11.6-15.6); WHITE BLOOD COUNT 4.3 K/mm3 (4.0-10.0)
--- NOTE | 2018-11-23 01:32 | PDOC ---
Documentation entered by Brijesh Sanchez SCRIBE, acting as scribe for Rosa Meier DO. Rosa Meier DO: This documentation has been prepared by the Daniel russell Nirvannie, SCRIBE, under my direction and personally reviewed by me in its entirety. I confirm that the documentation accurately reflects all work, treatment, procedures, and medical decision making performed by me. Attending Attestation - Resident Resident Name: Lul Mcfarland - ED Attending Attestation I have performed the following: I have examined & evaluated the patient, The case was reviewed & discussed with the resident, I agree w/resident's findings & plan - HPI HPI: 11/23/18 01:39 The patient is a 73 year old female, with a significant past medical history of CML, MS, NIDDM, seizure v pseudoseizure, Thrombocythemia, asthma/COPD, hypothyroidism, OA, prior CVA, CKD3, fibromyalgia, morbid obesity, spinal stenosis,and anxiety/depression, who presents to the emergency department via EMS with, abdominal pain described as a sharp, burning to the epigastric area and radiating up to the throat and back ranked as a 10/10. She notes taking Hydrocodone (without relief) then, zantac and mylanta with mild relief prompting her arrival the ED. She denies recent fevers, chills, headache or dizziness. She denies recent dysuria, frequency, urgency or hematuria. She denies recent chest pain or shortness of breath. Allergies: Sulfa Past surgical history: appendectomy, cholecystectomy, umbilical/ventral hernia Social history: Nonsmoker. Denies EtOH use and recreational drug use. Primary Care Physician: Dr. De Leon Oncologist: Dr. Toledo - Physicial Exam PE: 11/23/18 01:39 Constitutional: Awake, alert, oriented. No acute distress. Head: Normocephalic. Atraumatic Eyes: PERRL. EOMI. Conjunctivae are not pale. ENT: Mucous membranes are moist and intact. Posterior pharynx without exudates or erythema. Uvula midline. Neck: Supple. Full ROM. No lymphadenopathy. Cardiovascular: Regular rate. Regular rhythm. S1, S2 regular. Distal pulses are 2+ and symmetric. Pulmonary/Chest: No evidence of respiratory distress. Clear to auscultation bilaterally No wheezing, rales or rhonchi. Abdominal: +Tenderness to the epigastric area. No rebound, guarding or rigidity. Soft and non-distended. No organomegaly. No palpable masses. Good bowel sounds. Back: No CVA tenderness. Musculoskeletal: No edema. No cyanosis. No clubbing. Full range of motion in all extremities. No calf tenderness. Radial/pedal pulses are intact and 2+ bilaterally Skin: Skin is warm and dry. No petechiae. No purpura. Neurological: Alert and oriented to person, place, and time. Cranial nerves II -XII are grossly intact. Normal speech. Strength is grossly symmetric. No sensory deficits. Psychiatric: Good eye contact. Normal interaction, affect and behavior. - Medical Decision Making 11/23/18 01:25 I, Dr. Rosa Meier, DO, attest that this document has been prepared under my direction and personally reviewed by me in its entirety. I further attest, that it accurately reflects all work, treatment, procedures and medical decision -making performed by me. 11/23/18 01:28 a/p: 73yo female with abd pain with nausea, vomiting, and loose stool -pt states symptoms x 6m since starting gleevac -pt with hx of cml -pt states loose stool all day -vomiting when she takes her meds -pt denies distension -states sharp upper abd pain with burning sensation to her chest -pt speaking in full sentences, pt with upper abd ttp, radiates to her back - concern for pud, gastritis, pancreatitis -recent ct 3 weeks ago without acute findings -will send labs, will give reglan for nausea, bentyl, ivf hydration - took hydromorphone -will monitor and reassess 11/23/18 01:53 normal lipase glucose 73 cbc pending trop negative 11/23/18 01:57 wbc 4 11/23/18 01:59 pt still c/o pain discussed labs pt states despite meds, pain still there abd is still soft 11/23/18 02:07 pt receiving po meds now will do straight cath for ua Heart Score/ECG Review - ECG Intrepretation Comment:: 11/23/18 01:25 sinus at 60, nl axis, nl interval, no acute st/t wave findings
[2018-11-23 01:34] LABS: ALBUMIN 3.9 g/dl (3.4-5.0); BILIRUBIN,TOTAL 0.4 mg/dL (0.2-1); BLOOD UREA NITROGEN 7.2 mg/dL (7-18); CALCIUM 8.8 mg/dL (8.5-10.1); MAGNESIUM 2.2 mg/dL (1.8-2.4); PHOSPHOROUS 2.9 mg/dL (2.5-4.9); POTASSIUM 3.8 mmol/L (3.5-5.1); TOT PROT 6.8 g/dl (6.4-8.2)
[2018-11-23 01:50] LABS: INR 0.99 (0.83-1.09); PLATELET ESTIMATE NORMAL; PROTHROMBIN TIME (PATIENT) 11.7 SEC (9.7-13.0)
[2018-11-23 02:06] LABS: ANISOCYTOSIS 3+; MACROCYTOSIS 0; OVALOCYTE 1+
[2018-11-23] MEDS ORDERED: LIDOCAINE VISCOUS 2% ORAL/TOP 20 ML UNIT-DOSE CUP ONE (02:22)
[2018-11-23] MEDS ORDERED: METOCLOPRAMIDE HCL INJECTION 10 MG/2 ML VIAL ONE (02:22)
[2018-11-23 02:43] LABS: PH,URINE 7.5 (5.0-8.0); URINE APPEARANCE CLEAR; URINE BILIRUBIN NEGATIVE (NEGATIVE); URINE COLOR YELLOW; URINE GLUCOSE (UA) NEGATIVE (NEGATIVE); URINE KETONE NEGATIVE (NEGATIVE); URINE LEUK ESTERASE NEGATIVE (NEGATIVE); URINE NITRITE NEGATIVE (NEGATIVE); URINE PROTEIN NEGATIVE (NEGATIVE); URINE UROBILINOGEN 0.2 mg/dL (0.2-1.0)
[2018-11-23] MEDS ORDERED: ONDANSETRON 4 MG/2 ML VIAL IVPUSH ONE (03:25)
[2018-11-23] MEDS ORDERED: morphine CARPU-JECT 4 MG/1 ML DISP.SYRIN IVPUSH ONE (03:25)
[2018-11-23] MEDS ORDERED: morphine SULFATE 4 MG/ML VIAL ONE (03:54)
[2018-11-23] MEDS ORDERED: ONDANSETRON 4 MG/2 ML VIAL ONE (03:54)
[2018-11-23 05:56] VITALS: BP 174/120; PULSE 76
--- NOTE | 2018-11-24 17:07 | EKG ---
Test Reason : Blood Pressure : / mmHG Vent. Rate : 060 BPM Atrial Rate : 060 BPM P-R Int : 118 ms QRS Dur : 086 ms QT Int : 420 ms P-R-T Axes : 040 069 029 degrees QTc Int : 420 ms POOR DATA QUALITY, INTERPRETATION MAY BE ADVERSELY AFFECTED NORMAL SINUS RHYTHM NORMAL ECG WHEN COMPARED WITH ECG OF 07-APR-2018 10:01, NO SIGNIFICANT CHANGE WAS FOUND Confirmed by MD SALINAS, RAFFAELE ([id number]) on 11/24/2018 5:07:23 PM Referred By: Confirmed By:RAFFAELE NIÑO MD
== END 2018-11-23 05:40 | disposition home or self-care (01) ==
LOC: JER 23:46
PROC: 3E023GC Introduction of Other Therapeutic Substance into Muscle, Percutaneous Approach (ICD-10-PCS; principal; 2018-11-22)
PROC: 3E033GC Introduction of Other Therapeutic Substance into Peripheral Vein, Percutaneous Approach (ICD-10-PCS; 2018-11-22)
PROC: 3E033GC Introduction of Other Therapeutic Substance into Peripheral Vein, Percutaneous Approach (ICD-10-PCS; 2018-11-22)
PROC: 3E033NZ Introduction of Analgesics, Hypnotics, Sedatives into Peripheral Vein, Percutaneous Approach (ICD-10-PCS; 2018-11-22)
DX: R10.9 Unspecified abdominal pain (principal); J45.909 Unspecified asthma, uncomplicated; J44.9 Chronic obstructive pulmonary disease, unspecified; E03.9 Hypothyroidism, unspecified; M19.90 Unspecified osteoarthritis, unspecified site; Z85.118 Personal history of other malignant neoplasm of bronchus and lung; Z85.79 Personal history of other malignant neoplasms of lymphoid, hematopoietic and related tissues; Z86.73 Personal history of transient ischemic attack (TIA), and cerebral infarction without residual deficits; I12.9 Hypertensive chronic kidney disease with stage 1 through stage 4 chronic kidney disease, or unspecified chronic kidney disease; E11.22 Type 2 diabetes mellitus with diabetic chronic kidney disease; N18.3 Chronic kidney disease, stage 3 (moderate); G40.909 Epilepsy, unspecified, not intractable, without status epilepticus
CPT/HCPCS: 36415; 80053; 81003; 83605; 83690; 83735; 84100; 84484; 85025; 85610; 86850; 86900; 86901; 87086; 87186; 93005; 93010; 96365; 96372; 96375; 99283-25; J0131

== ENCOUNTER 2019-02-08 17:38 | Emergency (ER) | payer OTHER | END 2019-02-09 02:10 | disposition home or self-care (01) | LOC: JER 02-09 02:10 ==

== ENCOUNTER 2019-02-09 09:38 | Inpatient (IN) | payer OTHER | END 2019-02-24 18:27 | LOC: J8W 02-20 19:48 → JER 09:38 → JERBED 13:19 → J4W 15:16 ==

== ENCOUNTER 2019-04-20 12:47 | Inpatient (IN) | payer OTHER ==
--- NOTE | 2019-04-20 13:25 | PDOC ---
History of Present Illness - General Chief Complaint: Pain, Acute Stated Complaint: SOB Time Seen by Provider: 04/20/19 13:03 - History of Present Illness Initial Comments: Ms. Rubin is a 74 y/o female with PMH significant for CML (on imatinib), MS, fibromyalgia, HTN, COPD, arthritis, CVA, anxiety, presenting today with general abdominal discomfort after taking her imatinib. She has been taking imatinib QD for the past year. Denies fever, chills. Reports mild shortness of breath and mild chest pain. Reports diffuse abdominal pain. Denies radiation of the pain to the back. Reports that she has been having this pain and aches for over the past year. Denies urinary symptoms or changes in stool. Onc: Dr. Toledo PCP: Dr. De Leon Past History - Past Medical History Allergies/Adverse Reactions: Allergies Allergy/AdvReac Type Severity Reaction Status Date / Time Sulfa (Sulfonamide Allergy Severe Hives Verified 02/09/19 09:41 Antibiotics) Home Medications: Ambulatory Orders Acetaminophen 650 mg PO PRN 04/20/19 Amlodipine Besylate 10 mg PO DAILY 04/20/19 Clonidine HCl 0.1 mg PO DAILY 04/20/19 Gabapentin 900 mg PO TID 04/20/19 Humalog Kwikpen U-100 12 unit SQ DAILY 04/20/19 Losartan Potassium 50 mg PO DAILY 04/20/19 Melatonin 5 mg PO HS 04/20/19 Metoclopramide HCl [Reglan] 10 mg PO DAILY 04/20/19 Metoprolol Succinate [Toprol Xl] 50 mg PO DAILY 04/20/19 Oxycodone HCl 10 mg PO DAILY 04/20/19 Oxycodone HCl/Acetaminophen [Percocet 5-325 mg Tablet] 1 tab PO Q6H 04/20/19 predniSONE [Deltasone -] 30 mg PO DAILY 04/20/19 Anemia: No Asthma: Yes Cancer: Yes (leukemia) Cardiac Disorders: No CVA: Yes COPD: Yes CHF: No Dementia: No Diabetes: Yes (NIDDM) GI Disorders: Yes Disorders: No HTN: Yes Hypercholesterolemia: No Liver Disease: Yes (hep c treated) Seizures: Yes Thyroid Disease: Yes (hypo) - Surgical History Abdominal Surgery: Yes (unbilical/ventral hernia) Appendectomy: Yes Cardiac Surgery: No Cholecystectomy: Yes Lung Surgery: Yes (2012 RIGHT lobectomy for lung cancer,NO CHEMO OR RT) Neurologic Surgery: No Orthopedic Surgery: Yes (left knee/ right hip) - Immunization History Immunization Up to Date: Yes - Psycho Social/Smoking Cessation Hx Smoking Status: No Smoking History: Former smoker Have you smoked in the past 12 months: No Number of Cigarettes Smoked Daily: 0 If you are a former smoker, when did you quit?: 30 years ago Information on smoking cessation initiated: No 'Breaking Loose' booklet given: 10/24/18 Hx Alcohol Use: No Drug/Substance Use Hx: No Substance Use Type: None Hx Substance Use Treatment: No Review of Systems - Review of Systems Comments:: GENERAL/CONSTITUTIONAL: No fever or chills. No weakness. Reports decreased appetite. HEAD, EYES, EARS, NOSE AND THROAT: No change in vision. No change in hearing. No sore throat. Reports difficulty swallowing. CARDIOVASCULAR: No chest pain or shortness of breath_ RESPIRATORY: Denies cough, hemoptysis_ GASTROINTESTINAL: Reports abdominal pain. No nausea, vomiting, diarrhea or constipation._ GENITOURINARY: No dysuria, frequency, or change in urination._ MUSCULOSKELETAL: No joint or muscle swelling or pain. No neck or back pain._ SKIN: No rash_ NEUROLOGIC: No headache, vertigo, loss of consciousness, or change in strength/ sensation._ ENDOCRINE: No increased thirst. No abnormal weight change_ HEMATOLOGIC/LYMPHATIC: No anemia, easy bleeding, or history of blood clots._ ALLERGIC/IMMUNOLOGIC: No hives or skin allergy._ *Physical Exam - Vital Signs Last Vital Signs Temp Pulse Resp BP Pulse Ox 98.6 F 72 18 144/62 100 04/20/19 13:04 04/20/19 13:04 04/20/19 13:04 04/20/19 13:04 04/20/19 13:04 - Physical Exam Comments: GENERAL: Awake, alert, and oriented to person/place/time, in no acute distress_ HEAD: No signs of trauma, normocephalic, atraumatic _ EYES: PERRLA, EOMI, sclera anicteric, conjunctiva clear_ ENT: Hearing grossly normal, nares patent, oropharynx clear without exudates. No uvular deviation. Moist mucosa_ NECK: Normal ROM, supple, no lymphadenopathy, JVD, or masses_ LUNGS: No distress, speaks in full sentences, clear to auscultation bilaterally _ HEART: Regular rate and rhythm, normal S1 and S2, no murmurs appreciated, peripheral pulses normal and equal bilaterally._ ABDOMEN: Soft, protuberant, diffusely tender in all four quadrants. 3cm area of firmness superior to the umbilicus. No overlying skin changes. No rebound tenderness. Incision is clean/dry/intact, no discharge. EXTREMITIES: Normal inspection, Normal range of motion, no edema. No clubbing or cyanosis_ NEUROLOGICAL: Cranial nerves II through XII grossly intact. Normal speech, normal gait, no focal sensorimotor deficits _ SKIN: Warm, Dry, normal turgor, no rashes or lesions noted_ ED Treatment Course - LABORATORY CBC & Chemistry Diagram: 04/22/19 06:20 04/20/19 14:24 Medical Decision Making - Medical Decision Making 04/20/19 14:07 74F extensive PMH including CML in imatinib QD, presenting with diffuse general body pain worse in the abdomen. -cbc, cmp, coags, lipase, lactic acid -ekg, trop, cxr -ct abd -ua, uc -percocet for pain control 04/20/19 15:38 Labs reviewed. No leukocytosis. UA does not show signs of UTI. Calcium mildly decreased. 04/20/19 17:34 CT shows possible periumbilical infection vs incarcerated hernia. D/w Dr. Caraballo, patient's surgeon who saw her a week ago, and he states that it is likely induration and a seroma from the mesh. 04/20/19 18:19 D/w Dr. Caraballo, who recommends admitting the patient for possible infected seroma and he will evaluate tomorrow. 04/20/19 18:34 D/w Dr. Loving who agrees to accept the patient for admission. -ceftriaxone -flagyl Discharge - Discharge Information Problems reviewed: Yes Clinical Impression/Diagnosis: Abdominal pain Qualifiers: Abdominal location: generalized Qualified Code(s): R10.84 - Generalized abdominal pain Condition: Stable - Admission Yes - Follow up/Referral - Patient Discharge Instructions - Post Discharge Activity
[2019-04-20 14:38] LABS: BASO % 0.3 % (0-2.0); HEMATOCRIT 29.7 % (32.4-45.2); HEMOGLOBIN 9.7 GM/dL (10.7-15.3); LYMPH % 37.9 % (8-40); MCH 28.2 pg (25.7-33.7); MCHC 32.7 g/dl (32.0-36.0); MEAN CELL VOLUME 86.3 fl (80-96); MEAN PLT VOLUME 7.3 fl (7.5-11.1); MONO % 9.3 % (3.8-10.2); NEUT % 51.5 % (42.8-82.8); PLATELET COUNT 198 K/MM3 (134-434); RBC 3.45 M/mm3 (3.60-5.2); RDW 16.7 % (11.6-15.6); WHITE BLOOD COUNT 4.1 K/mm3 (4.0-10.0)
[2019-04-20 14:52] LABS: INR 0.97 (0.83-1.09); PROTHROMBIN TIME (PATIENT) 11.5 SEC (9.7-13.0)
[2019-04-20 14:59] LABS: ALBUMIN 3.3 g/dl (3.4-5.0); ALK PHOS 79 U/L (45-117); ANION GAP 4 MMOL/L (8-16); BILIRUBIN,TOTAL 0.4 mg/dL (0.2-1); BLOOD UREA NITROGEN 5.4 mg/dL (7-18); CALCIUM 8.3 mg/dL (8.5-10.1); CHLORIDE 109 mmol/L (98-107); CO2 27 mmol/L (21-32); CREATININE 0.9 mg/dL (0.55-1.3); GLUCOSE,RANDOM 79 mg/dL (74-106); POTASSIUM 4.1 mmol/L (3.5-5.1); SGOT/AST 22 U/L (15-37); SGPT/ALT 12 U/L (13-61); SODIUM 141 mmol/L (136-145); TOT PROT 6.3 g/dl (6.4-8.2)
[2019-04-20 15:37] LABS: URINE APPEARANCE CLEAR; URINE BILIRUBIN NEGATIVE (NEGATIVE); URINE COLOR YELLOW; URINE GLUCOSE (UA) NEGATIVE (NEGATIVE); URINE KETONE NEGATIVE (NEGATIVE); URINE LEUK ESTERASE NEGATIVE (NEGATIVE); URINE NITRITE NEGATIVE (NEGATIVE); URINE PROTEIN NEGATIVE (NEGATIVE); URINE UROBILINOGEN 0.2 mg/dL (0.2-1.0)
[2019-04-20] MEDS ORDERED: CEFTRIAXONE 1 GM in DEXTROSE 5%-WATER - 100 ML IVPB ONE (18:32)
--- NOTE | 2019-04-20 18:50 | HP ---
CHIEF COMPLAINT: abdominal pain PCP: Moises HISTORY OF PRESENT ILLNESS: 74 year old woman with CML, MS, fibromyalgia, HTN, COPD, arthritis, CVA, s/p Hernia repair (02/21/2019 w/ Dr. Caraballo) Presented complaining of abdominal pain for a few days. Recent ventral abdominal hernia repair with PHASIX mesh and partial omentectomy on 02/21/[address] of abdomen and pelvis showed periumbilical hernia with high density material that was suggestive of small bowel incarceration versus infection. Dr. Caraballo was called from the emergency room and thought it might be infected.Lactic acid was noted to be normal ER course was notable for: (1)CT of abdomen and pelvis (2)Ceftriaxone (3)Metronidazole Recent Travel:no PAST MEDICAL HISTORY:CML, MS, fibromyalgia, HTN, COPD, arthritis, CVA, PAST SURGICAL HISTORY:Hernia repair (02/21/2019 w/ Dr. Caraballo Social History: Smoking:no Alcohol: no Drugs: no Allergies Sulfa (Sulfonamide Antibiotics) Allergy (Severe, Verified 02/09/19 09:41) Hives peanuts,peas,tomatoes HOME MEDICATIONS: Home Medications Medication Instructions Recorded Acetaminophen 650 mg PO PRN 04/20/19 Amlodipine Besylate 10 mg PO DAILY 04/20/19 Clonidine HCl 0.1 mg PO DAILY 04/20/19 Gabapentin 900 mg PO TID 04/20/19 Humalog Kwikpen U-100 12 unit SQ DAILY 04/20/19 Losartan Potassium 50 mg PO DAILY 04/20/19 Melatonin 5 mg PO HS 04/20/19 Metoclopramide HCl [Reglan] 10 mg PO DAILY 04/20/19 Metoprolol Succinate [Toprol Xl] 50 mg PO DAILY 04/20/19 Oxycodone HCl 10 mg PO DAILY 04/20/19 Oxycodone HCl/Acetaminophen 1 tab PO Q6H 04/20/19 [Percocet 5-325 mg Tablet] predniSONE [Deltasone -] 30 mg PO DAILY 04/20/19 REVIEW OF SYSTEMS CONSTITUTIONAL: Absent: fever, chills, diaphoresis, generalized weakness, malaise, loss of appetite, weight change HEENT: Absent: rhinorrhea, nasal congestion, throat pain, throat swelling, difficulty swallowing, mouth swelling, ear pain, eye pain, visual changes CARDIOVASCULAR: Absent: chest pain, syncope, palpitations, irregular heart rate, lightheadedness , peripheral edema RESPIRATORY: Absent: cough, shortness of breath, dyspnea with exertion, orthopnea, wheezing, stridor, hemoptysis GASTROINTESTINAL: Absent: , abdominal distension, nausea, vomiting, diarrhea, constipation, melena , hematochezia Presentabdominal pain GENITOURINARY: Absent: dysuria, frequency, urgency, hesitancy, hematuria, flank pain, genital pain MUSCULOSKELETAL: Absent: myalgia, arthralgia, joint swelling, back pain, neck pain SKIN: Absent: rash, itching, pallor HEMATOLOGIC/IMMUNOLOGIC: Absent: easy bleeding, easy bruising, lymphadenopathy, frequent infections ENDOCRINE: Absent: unexplained weight gain, unexplained weight loss, heat intolerance, cold intolerance NEUROLOGIC: Absent: headache, focal weakness or paresthesias, dizziness, unsteady gait, seizure, mental status changes, bladder or bowel incontinence PSYCHIATRIC: Absent: anxiety, depression, suicidal or homicidal ideation, hallucinations. PHYSICAL EXAMINATION Vital Signs - 24 hr 04/20/19 13:04 Temperature 98.6 F Pulse Rate 72 Respiratory 18 Rate Blood Pressure 144/62 O2 Sat by Pulse 100 Oximetry (%) GENERAL: Awake, alert, and fully oriented, in no acute distress. HEAD: Normal with no signs of trauma. EYES: Pupils equal, round and reactive to light, extraocular movements intact, sclera anicteric, conjunctiva clear. No lid lag. EARS, NOSE, THROAT: Ears normal, nares patent, oropharynx clear without exudates. Moist mucous membranes. NECK: Normal range of motion, supple without lymphadenopathy, JVD, or masses. LUNGS: Breath sounds equal, clear to auscultation bilaterally. No wheezes, and no crackles. No accessory muscle use. HEART: Regular rate and rhythm, normal S1 and S2 without murmur, rub or gallop. ABDOMEN:Scar in middle, periumbilical hard mass felt mild tenderness on palpation. No rebound tenderness appreciated MUSCULOSKELETAL: Normal range of motion at all joints. No bony deformities or tenderness. No CVA tenderness. UPPER EXTREMITIES: 2+ pulses, warm, well-perfused. No cyanosis. No clubbing. No peripheral edema. LOWER EXTREMITIES: 2+ pulses, warm, well-perfused. No calf tenderness. No peripheral edema. NEUROLOGICAL: Cranial nerves II-XII intact. Normal speech. Normal gait. PSYCHIATRIC: Cooperative. Good eye contact. Appropriate mood and affect. SKIN: Warm, dry, normal turgor, no rashes or lesions noted, normal capillary refill. Laboratory Results - last 24 hr 04/20/19 04/20/19 04/20/19 14:24 14:24 14:24 WBC 4.1 RBC 3.45 L Hgb 9.7 L Hct 29.7 L MCV 86.3 MCH 28.2 MCHC 32.7 RDW 16.7 H Plt Count 198 D MPV 7.3 L Absolute Neuts (auto) 2.1 Neutrophils % 51.5 Lymphocytes % 37.9 Monocytes % 9.3 Eosinophils % 1.0 Basophils % 0.3 Nucleated RBC % 0 ESR PT with INR INR PTT (Actin FS) 29.6 Sodium Potassium Chloride Carbon Dioxide Anion Gap BUN Creatinine Est GFR (CKD-EPI)AfAm Est GFR (CKD-EPI)NonAf Random Glucose Lactic Acid Calcium Total Bilirubin AST ALT Alkaline Phosphatase Creatine Kinase 135 Troponin I < 0.02 C-Reactive Protein Total Protein Albumin Lipase Urine Color Urine Appearance Urine pH Ur Specific [place] Urine Protein Urine Glucose (UA) Urine Ketones Urine Blood Urine Nitrite Urine Bilirubin Urine Urobilinogen Ur Leukocyte Esterase 04/20/19 04/20/19 04/20/19 14:24 14:24 14:24 WBC RBC Hgb Hct MCV MCH MCHC RDW Plt Count MPV Absolute Neuts (auto) Neutrophils % Lymphocytes % Monocytes % Eosinophils % Basophils % Nucleated RBC % ESR PT with INR INR PTT (Actin FS) Sodium 141 Potassium 4.1 Chloride 109 H Carbon Dioxide 27 Anion Gap 4 L BUN 5.4 L Creatinine 0.9 Est GFR (CKD-EPI)AfAm 73.00 Est GFR (CKD-EPI)NonAf 62.99 Random Glucose 79 Lactic Acid 1.2 Calcium 8.3 L Total Bilirubin 0.4 AST 22 ALT 12 L Alkaline Phosphatase 79 Creatine Kinase Troponin I C-Reactive Protein < 0.3 Total Protein 6.3 L Albumin 3.3 L Lipase 110 Urine Color Urine Appearance Urine pH Ur Specific [place] Urine Protein Urine Glucose (UA) Urine Ketones Urine Blood Urine Nitrite Urine Bilirubin Urine Urobilinogen Ur Leukocyte Esterase 04/20/19 04/20/19 04/20/19 14:24 14:24 14:47 WBC RBC Hgb Hct MCV MCH MCHC RDW Plt Count MPV Absolute Neuts (auto) Neutrophils % Lymphocytes % Monocytes % Eosinophils % Basophils % Nucleated RBC % ESR 25 PT with INR 11.50 INR 0.97 PTT (Actin FS) Sodium Potassium Chloride Carbon Dioxide Anion Gap BUN Creatinine Est GFR (CKD-EPI)AfAm Est GFR (CKD-EPI)NonAf Random Glucose Lactic Acid Calcium Total Bilirubin AST ALT Alkaline Phosphatase Creatine Kinase Troponin I C-Reactive Protein Total Protein Albumin Lipase Urine Color Yellow Urine Appearance Clear Urine pH 8.0 Ur Specific [place] 1.006 L Urine Protein Negative Urine Glucose (UA) Negative Urine Ketones Negative Urine Blood Negative Urine Nitrite Negative Urine Bilirubin Negative Urine Urobilinogen 0.2 Ur Leukocyte Esterase Negative Imaging reviewed ASSESSMENT/PLAN: Periumbilical herniawith high density material, possible small bowel segment suggestive of infection or incarceration. Case was discussed with Dr. Caraballo by emergency department.Lactic acid was normal. Admit to MedSurg IV fluid hydration Morphine IV as needed for pain control N.p.o. for possible surgical intervention Surgery evaluationconsulted Dr. Caraballo PT, PTT, type and screen If systemic signs if systemic signs of infection would send blood cultures Ceftriaxone and metronidazole empirically for possible infected hernia Hold aspirin or other antiplatelet agents #Hypertension Continue home dose losartan, Toprol, amlodipine, clonidine #DVT prophylaxis SCDs bilaterally to lower extremities Visit type - Emergency Visit Emergency Visit: Yes ED Registration Date: 04/20/19 Care time: The patient presented to the Emergency Department on the above date and was hospitalized for further evaluation of their emergent condition. - New Patient This patient is new to me today: Yes Date on this admission: 04/20/19 - Critical Care Critical Care patient: No
[2019-04-20] MEDS ORDERED: CEFTRIAXONE 1 GM/50 ML BAG ONE (18:56)
[2019-04-20] MEDS ORDERED: SODIUM CHLORIDE 1,000 ML IV SCH (19:30)
--- NOTE | 2019-04-20 19:49 | PDOC ---
Documentation entered by Jena Olivares SCRIBE, acting as scribe for Josselin Diaz MD. Josselin Diaz MD: This documentation has been prepared by the daijaibe, Jena Olivares SCRIBE, under my direction and personally reviewed by me in its entirety. I confirm that the documentation accurately reflects all work, treatment, procedures, and medical decision making performed by me. Attending Attestation - Resident Resident Name: Gordo Bustamante - ED Attending Attestation I have performed the following: I have examined & evaluated the patient, The case was reviewed & discussed with the resident, I agree w/resident's findings & plan, Exceptions are as noted - HPI HPI: 04/20/19 18:21 The patient is a 74 year old female with a past medical history significant for CML, MS, fibromyalgia, HTN, COPD, arthritis, CVA, s/p Hernia repair (02/21/2019 w/ Dr. Caraballo) who presents to the emergency department with abdominal pain. Allergies: Sulfa Past surgical history: appendectomy, cholecystectomy, umbilical/ventral hernia repair Social history: Nonsmoker. Denies EtOH use and recreational drug use. PCP: Dr. De Leon Oncologist: Dr. Toledo - Physicial Exam PE: 04/20/19 18:47 Well-nourished well-developed 74-year-old female presents with periumbilical pain Head normocephalic atraumatic Neck is supple Lungs are clear to auscultation CVS regular rate and rhythm S1-S2 Abdomen a 4 cm round tender palpable area adjacent to the hernia incision that is well-healed, no erythema to the site, no drainage No flank pain Skin warm and dry Neuro alert and conversant - Medical Decision Making 04/20/19 18:[address] Caraballo. 04/20/19 18:[address] caraballo and he did look at the images on the CAT scan called us back with decision to admission to [facility] and then to be made n.p.o. after midnight 04/20/19 19:48 Concerns for infected seroma given IV antibiotics
[2019-04-20] MEDS: MORPHINE SULFATE 2 MG/ML VIAL IVPUSH PRN (21:44)
[2019-04-20] MEDS ORDERED: MORPHINE SULFATE 2 MG/ML VIAL ONE (21:46)
[2019-04-20] MEDS: MELATONIN 5 MG TABLETS PO SCH (23:07)
[2019-04-20] MEDS ORDERED: MELATONIN 5 MG TABLETS ONE (23:11)
[2019-04-21] MEDS ORDERED: MORPHINE SULFATE 2 MG/ML VIAL IVPUSH ONE (00:08)
[2019-04-21] MEDS: MORPHINE SULFATE 2 MG/ML VIAL IVPUSH PRN ×2 (05:49→10:28)
[2019-04-21] MEDS: DEXTROSE 5%-0.45% SALINE 1,000 ML IV SCH (08:52)
--- NOTE | 2019-04-21 10:03 | EKG ---
Test Reason : Blood Pressure : / mmHG Vent. Rate : 072 BPM Atrial Rate : 241 BPM P-R Int : 000 ms QRS Dur : 088 ms QT Int : 406 ms P-R-T Axes : 000 077 034 degrees QTc Int : 444 ms SINUS RHYTHM WHEN COMPARED WITH ECG OF 09-FEB-2019 09:42, T WAVE VARIATION Confirmed by VONDA DENG MD ([id number]) on 04/21/2019 10:03:27 AM Referred By: Confirmed By:VONDA DENG MD
[2019-04-21] MEDS ORDERED: cefTRIAXone SODIUM 1 GM VIAL ONE (10:08)
[2019-04-21] MEDS ORDERED: DEXTROSE 5%-WATER - 50 ML IVPB ONE (10:09)
[2019-04-21] MEDS: amLODIPine BESYLATE 10 MG TABLET (FP) PO SCH (10:11)
[2019-04-21] MEDS: LOSARTAN POTASSIUM 50 MG TABLET (FP) PO SCH (10:11)
[2019-04-21] MEDS: CEFTRIAXONE 1 GM in DEXTROSE 5%-WATER - 50 ML IVPB SCH (10:12)
[2019-04-21] MEDS: cloNIDine HCL 0.1 MG TABLET PO SCH (10:12)
--- NOTE | 2019-04-21 11:59 | PN ---
Progress Note, Physician Chief Complaint: patient admitted with abdominal pain to get ultrasound today to look for seroma - Current Medication List Current Medications: Active Medications Amlodipine Besylate (Norvasc -) 10 mg PO DAILY [facility] Last Admin: 04/21/19 10:11 Dose: 10 mg Clonidine (Catapres -) 0.1 mg PO DAILY [facility] Last Admin: 04/21/19 10:12 Dose: 0.1 mg Metronidazole (Flagyl 500mg Premixed Ivpb -) 500 mg in 100 mls @ 100 mls/hr IVPB Q8H-IV [facility] Last Admin: 04/21/19 10:13 Dose: 100 mls/hr Ceftriaxone Sodium 1 gm/ (Dextrose) 50 mls @ 100 mls/hr IVPB DAILY [facility] Last Admin: 04/21/19 10:12 Dose: 100 mls/hr Dextrose/Sodium Chloride (D5-1/2ns -) 1,000 mls @ 75 mls/hr IV ASDIR [facility] Last Admin: 04/21/19 08:52 Dose: 75 mls/hr Losartan Potassium (Cozaar -) 50 mg PO DAILY [facility] Last Admin: 04/21/19 10:11 Dose: 50 mg Melatonin (Melatonin) 5 mg PO HS [facility] Last Admin: 04/20/19 23:07 Dose: 5 mg Metoprolol Succinate (Toprol Xl -) 50 mg PO DAILY [facility] Last Admin: 04/21/19 10:11 Dose: 50 mg Morphine Sulfate (Morphine Sulfate) 4 mg IVPUSH Q4H PRN PRN Reason: PAIN LEVEL 6-10 - Objective Vital Signs: Vital Signs Temperature 98.4 F 04/21/19 06:22 Pulse Rate 66 04/21/19 06:22 Respiratory Rate 18 04/21/19 06:22 Blood Pressure 157/66 04/21/19 06:22 O2 Sat by Pulse Oximetry (%) 100 04/21/19 00:33 Constitutional: Yes: Mild Distress Neck: Yes: Trachea Midline Cardiovascular: Yes: Regular Rate and Rhythm, S1, S2 Labs: CBC, BMP 04/20/19 14:24 04/20/19 14:24 INR, PTT INR 0.97 (0.83-1.09) 04/20/19 14:24 Problem List - Problems (1) Abdominal pain Assessment/Plan: NPO tonight to go to OR in am for possiible drainnage of seroma ultrassound today GO on board iv abx pain control Code(s): R10.9 - UNSPECIFIED ABDOMINAL PAIN (2) Anemia Assessment/Plan: iron panel Code(s): D64.9 - ANEMIA, UNSPECIFIED (3) HTN (hypertension) Assessment/Plan: continue home meds Code(s): I10 - ESSENTIAL (PRIMARY) HYPERTENSION
[2019-04-21] MEDS: morphine SULFATE 4 MG/ML VIAL IVPUSH PRN ×2 (12:48→16:22)
--- NOTE | 2019-04-21 18:23 | CONSULT ---
Consult Consult Specialty:: Surgery - History of Present Illness Chief Complaint: Abdominal pain History of Present Illness: 74 year old woman with CML, MS, fibromyalgia, HTN, COPD, arthritis, CVA, s/p Hernia repair (02/21/2019 w/ undersigned) presented complaining of diffuse abdominal pain for a few days. Recent ventral abdominal hernia repair with PHASIX mesh and partial omentectomy on 02/21/2019. CT of abdomen and pelvis showed high density material that was suggestive of small bowel incarceration versus infection. Patient developed seroma post-op with umbilical discharge, requiring needle aspiration. 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 Cardio/Vascular: Yes: HTN Pulmonary: Yes: Asthma, COPD Gastrointestinal: Yes: GERD (using walker at home ) Renal/: Yes: Renal Inusuff ...: No Psych: Yes: Depression Musculoskeletal: Yes: Osteoarthritis, Other (DDD) Rheumatology: Yes: Rheumatoid Arthritis Endocrine: Yes: Diabetes Mellitus, Hypothyroidism Additional Medical History: as in HPI, morbidly obese - Past Surgical History Past Surgical History: Yes: Hysterectomy, Joint Replacement, Cholecystectomy - Alcohol/Substance Use Hx Alcohol Use: No History of Substance Use: reports: Marijuana, None - Smoking History Smoking history: Former smoker Have you smoked in the past 12 months: No Aproximately how many cigarettes per day: 0 If you are a former smoker, when did you quit?: 30 years ago - Social History Usual Living Arrangement: Alone 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 Travel: No Home Medications - Allergies Allergies/Adverse Reactions: Allergies Allergy/AdvReac Type Severity Reaction Status Date / Time Sulfa (Sulfonamide Allergy Severe Hives Verified 02/09/19 09:41 Antibiotics) - Home Medications Home Medications: Ambulatory Orders Acetaminophen 650 mg PO PRN 04/20/19 Amlodipine Besylate 10 mg PO DAILY 04/20/19 Clonidine HCl 0.1 mg PO DAILY 04/20/19 Gabapentin 900 mg PO TID 04/20/19 Humalog Kwikpen U-100 12 unit SQ DAILY 04/20/19 Losartan Potassium 50 mg PO DAILY 04/20/19 Melatonin 5 mg PO HS 04/20/19 Metoclopramide HCl [Reglan] 10 mg PO DAILY 04/20/19 Metoprolol Succinate [Toprol Xl] 50 mg PO DAILY 04/20/19 Oxycodone HCl 10 mg PO DAILY 04/20/19 Oxycodone HCl/Acetaminophen [Percocet 5-325 mg Tablet] 1 tab PO Q6H 04/20/19 predniSONE [Deltasone -] 30 mg PO DAILY 04/20/19 Physical Exam Vital Signs: Vital Signs Temperature 98.9 F 04/21/19 17:58 Pulse Rate 53 L 04/21/19 17:58 Respiratory Rate 20 04/21/19 17:58 Blood Pressure 155/58 L 04/21/19 17:58 O2 Sat by Pulse Oximetry (%) 100 04/21/19 00:33 Constitutional: Yes: Anxious Eyes: Yes: Conjunctiva Clear HENT: Yes: Normocephalic Neck: Yes: Supple Cardiovascular: Yes: Regular Rate and Rhythm Respiratory: Yes: CTA Bilaterally Gastrointestinal: Yes: Soft, Abdomen, Obese, Tenderness (mild at supraumbilical hernia repair site with muopurulent scanty discharge from the umbilicus), Other (+ 4 cm induration at hernia repair site) ...Rectal Exam: Yes: Deferred Labs: CBC, BMP 04/20/19 14:24 04/20/19 14:24 Imaging - Results Cat Scan: Report Reviewed, Image Reviewed Ultrasound: Report Reviewed, Image Reviewed Problem List - Problems (1) Abdominal pain Assessment/Plan: possible infected seroma, r/o recurrent ventral hernia For abdominal wound exploration in am Code(s): R10.9 - UNSPECIFIED ABDOMINAL PAIN Qualifiers: Abdominal location: unspecified location Qualified Code(s): R10.9 - Unspecified abdominal pain
[2019-04-21] MEDS: HYDROmorphone HCl 2 MG/ML VIAL IVPB PRN ×2 (19:23→23:32)
[2019-04-21] MEDS: MELATONIN 5 MG TABLETS PO SCH (21:03)
[2019-04-22] MEDS: HYDROmorphone HCl 2 MG/ML VIAL IVPB PRN ×4 (05:22→22:22)
[2019-04-22] MEDS: DEXTROSE 5%-0.45% SALINE 1,000 ML IV SCH (06:25)
[2019-04-22 07:23] LABS: BASO % 0.3 % (0-2.0); EOS % 4.5 % (0-4.5); HEMATOCRIT 27.2 % (32.4-45.2); HEMOGLOBIN 8.9 GM/dL (10.7-15.3); LYMPH % 37.3 % (8-40); MCH 28.2 pg (25.7-33.7); MCHC 32.8 g/dl (32.0-36.0); MEAN PLT VOLUME 7.3 fl (7.5-11.1); MONO % 14.6 % (3.8-10.2); NEUT % 43.3 % (42.8-82.8); PLATELET COUNT 183 K/MM3 (134-434); RBC 3.17 M/mm3 (3.60-5.2); RDW 16.6 % (11.6-15.6); WHITE BLOOD COUNT 4.5 K/mm3 (4.0-10.0)
[2019-04-22 07:50] LABS: IRON SERUM 72 ug/dL (50-175); TOTAL IRON BINDING CAPACITY 205 ug/dL (250-450)
[2019-04-22] MEDS ORDERED: ONDANSETRON 4 MG/2 ML VIAL IVPB ONE (09:45)
[2019-04-22] MEDS ORDERED: cefTRIAXone SODIUM 1 GM VIAL ONE (10:02)
[2019-04-22] MEDS ORDERED: DEXTROSE 5%-WATER - 50 ML IVPB ONE (10:02)
[2019-04-22] MEDS: cloNIDine HCL 0.1 MG TABLET PO SCH (10:04)
[2019-04-22] MEDS: amLODIPine BESYLATE 10 MG TABLET (FP) PO SCH (10:04)
[2019-04-22] MEDS: LOSARTAN POTASSIUM 50 MG TABLET (FP) PO SCH (10:04)
[2019-04-22] MEDS: CEFTRIAXONE 1 GM in DEXTROSE 5%-WATER - 50 ML IVPB SCH (10:06)
[2019-04-22] MEDS ORDERED: LACTATED RINGERS SOLUTION 1,000 ML IV SCH (13:15)
[2019-04-22] MEDS ORDERED: ONDANSETRON 4 MG/2 ML VIAL IVPUSH PRN (13:15)
[2019-04-22] MEDS ORDERED: fentaNYL CITRATE 250 MCG/5 ML VIAL ONE (13:18)
[2019-04-22] MEDS ORDERED: ROCURONIUM BROMIDE 50 MG/5 ML SYRINGE ONE ×2 (13:18)
[2019-04-22] MEDS ORDERED: MIDAZOLAM HCL 2 MG/2 ML SINGLE DOSE VIAL ONE (13:18)
[2019-04-22] MEDS ORDERED: ceFAZolin SODIUM 1 GM VIAL ONE (13:42)
[2019-04-22] MEDS ORDERED: BUPIVACAINE HCL/PF 0.5% (5 MG/ML) 30 ML VIAL IJ ONE ×2 (13:49→14:03)
[2019-04-22] MEDS ORDERED: NEOSTIGMINE METHYLSULFATE 0.5 MG/ML - 10 ML MDV ONE (14:21)
[2019-04-22] MEDS ORDERED: DEXAMETHASONE SOD PHOSPHATE 4 MG/1 ML VIAL ONE (14:34)
[2019-04-22] MEDS ORDERED: hydrALAZINE HCL 20 MG/ML VIAL ONE (14:34)
[2019-04-22] MEDS ORDERED: LABETALOL HCL 5 MG/1 ML (100MG/20 ML VIAL) ONE (14:34)
--- NOTE | 2019-04-22 15:09 | SURG ---
Surgery Concert Promoter Note Concert Promoter: Lul Chen PA-C Date of Service: 04/22/19 Diagnosis: Infected abdominal seroma Procedure: Wound exploration, evacuation of infected abdominal seroma I was present for the entirety of the operative procedure. For further detail, please refer to operative report. Visit type - Case Type Case Type: ED Admission - Emergency Emergency Visit: Yes ED Registration Date: 04/20/19 Care time: The patient presented to the Emergency Department on the above date and was hospitalized for further evaluation of their emergent condition. - New patient This patient is new to me today: Yes Date on this admission: 04/22/19 - Critical Care Critical Care patient: No
--- NOTE | 2019-04-22 15:12 | OP ---
Operative Note - Note: Operative Date: 04/22/19 Pre-Operative Diagnosis: infected post-op abdominal wound seroma, r/o recurrent ventral hernia Operation: Abdominal wound exploration, evacuation of infected seroma and wound irrigation Findings: sreoma cavity with minimal purulent fluid and a skin defect at the umbilicus Post-Operative Diagnosis: Same as Pre-op (no recurrent ventral hernia) Surgeon: Ashkan Caraballo Radiology Nurse: Lul Chen Anesthesia: General Estimated Blood Loss (mls): 2 Operative Report Dictated: Yes
[2019-04-22] MEDS ORDERED: DEXTROSE 5%-0.45% SALINE 1,000 ML IV SCH (15:40)
--- NOTE | 2019-04-22 15:41 | PN ---
Progress Note, Physician Chief Complaint: Abdominal Pain Seroma History of Present Illness: Previous notes and events reviewed awake and alert NAD POD #0 Evacuation of infected Seroma and wound irrigation complain of pain to surgical site - Current Medication List Current Medications: Active Medications Amlodipine Besylate (Norvasc -) 10 mg PO DAILY [facility] Clonidine (Catapres -) 0.1 mg PO DAILY [facility] Fentanyl (Sublimaze Injection -) 50 mcg IVPUSH [id number] PRN PRN Reason: PAIN-PACU ORDER X 4 DOSES ONLY Stop: 04/23/19 13:14 Hydromorphone HCl (Dilaudid Vial -) 2 mg IVPB Q4H PRN PRN Reason: PAIN LEVEL 4 - 6 Ceftriaxone Sodium 1 gm/ (Dextrose) 50 mls @ 100 mls/hr IVPB DAILY [facility] Dextrose/Sodium Chloride (D5-1/2ns -) 1,000 mls @ 75 mls/hr IV ASDIR [facility] Metronidazole (Flagyl 500mg Premixed Ivpb -) 500 mg in 100 mls @ 100 mls/hr IVPB Q8H-IV [facility] Lactated Ringer's (Lactated Ringers Solution) 1,000 mls @ 75 mls/hr IV ASDIR [facility] Losartan Potassium (Cozaar -) 50 mg PO DAILY [facility] Melatonin (Melatonin) 5 mg PO HS [facility] Metoprolol Succinate (Toprol Xl -) 50 mg PO DAILY [facility] Ondansetron HCl (Zofran Injection) 4 mg IVPUSH Q6H PRN PRN Reason: NAUSEA AND/OR VOMITING - Objective Vital Signs: Vital Signs Temperature 97.5 F L 04/22/19 14:41 Pulse Rate 54 L 04/22/19 15:30 Respiratory Rate 12 04/22/19 15:30 Blood Pressure 149/55 L 04/22/19 15:30 O2 Sat by Pulse Oximetry (%) 97 04/22/19 15:30 Constitutional: Yes: No Distress, Calm Eyes: Yes: Conjunctiva Clear HENT: Yes: Atraumatic Cardiovascular: Yes: Regular Rate and Rhythm Respiratory: Yes: Regular, CTA Bilaterally Gastrointestinal: Yes: Soft, Hypoactive Bowel Sounds, Tenderness (l side of abdomen (surgical site)) Genitourinary: Yes: Incontinence Musculoskeletal: Yes: Muscle Weakness Extremities: Yes: WNL Edema: No Wound/Incision: Yes: Dressing Dry and Intact Neurological: Yes: Alert, Oriented Psychiatric: Yes: Alert, Oriented Labs: CBC, BMP 04/22/19 06:20 04/20/19 14:24 INR, PTT INR 0.97 (0.83-1.09) 04/20/19 14:24 Problem List - Problems (1) Abdominal pain Assessment/Plan: -Surgery on board -POD #0 Evacuation of infected Seroma and wound irrigation -pain control -wound culture pending -Incentive spirometer -daily dressing changes -IV antibiotics Code(s): R10.9 - UNSPECIFIED ABDOMINAL PAIN (2) HTN (hypertension) Assessment/Plan: -Amlodipine, Losartan, Metoprolol -low Na diet Code(s): I10 - ESSENTIAL (PRIMARY) HYPERTENSION (3) CML (chronic myelocytic leukemia) Assessment/Plan: -Oncology on board Code(s): C92.10 - CHRONIC MYELOID LEUK, BCR/ABL-POSITIVE, NOT ACHIEVE REMIS (4) Diabetes Assessment/Plan: -[facility] -[facility] -HgA1c Code(s): E11.9 - TYPE 2 DIABETES MELLITUS WITHOUT COMPLICATIONS Qualifiers: Diabetes mellitus type: type 2 Assessment/Plan see problem list dvt ppx
[2019-04-22 16:30] VITALS: BMI 30.5
--- NOTE | 2019-04-22 16:35 | OP ---
DATE OF OPERATION: 04/22/2019 PROCEDURE: Abdominal wound exploration, evacuation of infected seroma, and wound irrigation. PREOPERATIVE DIAGNOSIS: Infected postoperative abdominal wound seroma, rule out recurrent ventral hernia. POSTOPERATIVE DIAGNOSIS: Infected postoperative abdominal wound seroma. SURGEON: Ashkan Caraballo MD SEISMOGRAPH CHIEF: SEBAS Jhonson ANESTHESIA: General endotracheal. DESCRIPTION OF PROCEDURE: This is a 74-year-old female who is status post open ventral hernia repair and partial omentectomy with Phasix mesh 2 months prior who developed postoperative seroma. The seroma was noted to be leaking at the umbilicus, and patient underwent 2 sessions of needle aspiration of serous fluid. Patient was apparently relatively doing well in the skilled nursing and was discharged home eventually. However, 1 day prior to admission patient experienced abdominal pain worse at the area of the hernia repair so was sent to the emergency department where a CAT scan of the abdomen and pelvis revealed inflammatory process of the hernia site with possible recurrence of the hernia. On physical exam, patient has a well- healed supraumbilical midline wound, however, has some mucopurulent discharge of the umbilicus, which was also noted to be also foul smelling. Patient was admitted and advised to undergo abdominal wall exploration after discussing the risks, benefits, and alternatives to the procedure. Patient was brought to the operating room and placed in supine position. General endotracheal anesthesia was administered. The abdomen was prepped and draped in the usual sterile fashion, 0.5% Marcaine was administered to the proposed incision site. Using the old incision, 5-cm supraumbilical midline incision was made. Using old incision, the abdominal wound was opened using scalpel blade No. 15. Further dissection using Bovie cautery was done until the encapsulated seroma was encountered. This was carefully opened to ensure that there was no bowel underneath and the cavity was explored. A small amount of purulent material was evacuated , and the mesh was noted to be intact. Further exploration of the abdominal wound was done, and a 2-mm skin defect communicating with the umbilicus was noted. No fascial defect was noted. The wound was then irrigated with 3 L of sterile normal saline using the pulse science center display builder until return was clear. The wound was then packed with 2 inch iodoform strips and covered with sterile dressing. Patient was successfully extubated and transferred to the post anesthesia care unit in satisfactory condition. ESTIMATED BLOOD LOSS: About 2 mL. WOUND CLASS: Dirty. The patient was already on antibiotics upon admission. Jose Manuel [id number] [id number]
[2019-04-22] MEDS: LACTATED RINGERS SOLUTION 1,000 ML IV SCH (17:44)
[2019-04-22] MEDS: MELATONIN 5 MG TABLETS PO SCH (21:06)
--- NOTE | 2019-04-22 23:34 | CONSULT ---
Consult Consult Specialty:: endocrine Referred by:: derek larry Reason for Consultation:: dmt2,hypothyroidism - History of Present Illness Chief Complaint: abdominal pain History of Present Illness: 74 year old female with a past medical history significant for CML, MS, fibromyalgia, HTN, COPD, arthritis, CVA, s/p Hernia repair (02/21/2019 w/ Dr. Caraballo ) who presents to the emergency department with abdominal pain. found to have recurrent abdominal wall hernia.sp repair of seroma - Past Medical History LAPPER: Yes: 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 Cardio/Vascular: Yes: HTN Pulmonary: Yes: Asthma, COPD Gastrointestinal: Yes: GERD (using walker at home ) Renal/: Yes: Renal Inusuff ...: No Psych: Yes: Depression Musculoskeletal: Yes: Osteoarthritis, Other (DDD) Rheumatology: Yes: Rheumatoid Arthritis Endocrine: Yes: Diabetes Mellitus, Hypothyroidism Additional Medical History: as in HPI, morbidly obese - Past Surgical History Past Surgical History: Yes: Hysterectomy, Joint Replacement, Cholecystectomy - Alcohol/Substance Use Hx Alcohol Use: No History of Substance Use: reports: Marijuana, None - Smoking History Smoking history: Former smoker Have you smoked in the past 12 months: No Aproximately how many cigarettes per day: 0 If you are a former smoker, when did you quit?: 30 years ago - Social History Usual Living Arrangement: Alone 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 Travel: No Home Medications - Allergies Allergies/Adverse Reactions: Allergies Allergy/AdvReac Type Severity Reaction Status Date / Time Sulfa (Sulfonamide Allergy Severe Hives Verified 02/09/19 09:41 Antibiotics) - Home Medications Home Medications: Ambulatory Orders Acetaminophen 650 mg PO PRN 04/20/19 Amlodipine Besylate 10 mg PO DAILY 04/20/19 Clonidine HCl 0.1 mg PO DAILY 04/20/19 Gabapentin 900 mg PO TID 04/20/19 Humalog Kwikpen U-100 12 unit SQ DAILY 04/20/19 Losartan Potassium 50 mg PO DAILY 04/20/19 Melatonin 5 mg PO HS 04/20/19 Metoclopramide HCl [Reglan] 10 mg PO DAILY 04/20/19 Metoprolol Succinate [Toprol Xl] 50 mg PO DAILY 04/20/19 Oxycodone HCl 10 mg PO DAILY 04/20/19 Oxycodone HCl/Acetaminophen [Percocet 5-325 mg Tablet] 1 tab PO Q6H 04/20/19 predniSONE [Deltasone -] 30 mg PO DAILY 04/20/19 Review of Systems - Review of Systems Constitutional: reports: Lethargy, Weakness Eyes: reports: No Symptoms HENT: reports: No Symptoms Neck: reports: No Symptoms Cardiovascular: reports: Shortness of Breath Respiratory: reports: Exercise Intolerance, SOB on Exertion Gastrointestinal: reports: Bloating, Nausea Genitourinary: reports: No Symptoms Breasts: reports: No Symptoms Reported Musculoskeletal: reports: Extremity Pain, Muscle Pain, Muscle Cramps Integumentary: reports: No Symptoms Neurological: reports: Numbness, Unsteady Gait, Weakness Physical Exam Vital Signs: Vital Signs Temperature 98.3 F 04/22/19 19:17 Pulse Rate 56 L 04/22/19 19:17 Respiratory Rate 18 04/22/19 21:00 Blood Pressure 137/56 L 04/22/19 19:17 O2 Sat by Pulse Oximetry (%) 97 04/22/19 15:45 Constitutional: Yes: Calm Eyes: Yes: EOM Intact HENT: Yes: Normocephalic Neck: Yes: Trachea Midline Cardiovascular: Yes: Regular Rate and Rhythm Respiratory: Yes: CTA Bilaterally Gastrointestinal: Yes: Hypoactive Bowel Sounds, Tenderness, Epigastrium ...Rectal Exam: Yes: Deferred Renal/: Yes: WNL Musculoskeletal: Yes: Joint Swelling, Muscle Pain, Muscle Weakness Extremities: Yes: WNL Edema: No Neurological: Yes: Alert, Oriented Labs: CBC, BMP 04/22/19 06:20 04/20/19 14:24 Problem List - Problems (1) Ventral hernia with bowel obstruction Problems reviewed: Yes Code(s): K43.6 - OTHER AND UNSP VENTRAL HERNIA WITH OBSTRUCTION, W/O GANGRENE (2) Abdominal pain Problems reviewed: Yes Code(s): R10.9 - UNSPECIFIED ABDOMINAL PAIN Qualifiers: Abdominal location: generalized Qualified Code(s): R10.84 - Generalized abdominal pain (3) HTN (hypertension) Problems reviewed: Yes Code(s): I10 - ESSENTIAL (PRIMARY) HYPERTENSION (4) Abnormal antibody titer Problems reviewed: Yes Code(s): R76.8 - OTHER SPECIFIED ABNORMAL IMMUNOLOGICAL FINDINGS IN SERUM (5) Acute kidney failure Code(s): N17.9 - ACUTE KIDNEY FAILURE, UNSPECIFIED (6) C. difficile diarrhea Code(s): A04.72 - ENTEROCOLITIS D/T CLOSTRIDIUM DIFFICILE, NOT SPCF RECUR (7) CML (chronic myelocytic leukemia) Code(s): C92.10 - CHRONIC MYELOID LEUK, BCR/ABL-POSITIVE, NOT ACHIEVE REMIS (8) COPD (chronic obstructive pulmonary disease) Code(s): J44.9 - CHRONIC OBSTRUCTIVE PULMONARY DISEASE, UNSPECIFIED Assessment/Plan Current Active Problems Abdominal pain (Acute) HTN (hypertension) (Acute) Ventral hernia with bowel obstruction (Acute) dm type 2 hypothyroidism Abnormal Lab Results 04/22/19 04/22/19 06:20 06:20 RBC 3.17 L Hgb 8.9 L Hct 27.2 L RDW 16.6 H MPV 7.3 L Monocytes % 14.6 H TIBC 205 L Unsaturated IBC 133 L Laboratory Results - last 24 hr 04/22/19 04/22/19 04/22/19 05:39 06:20 06:20 WBC 4.5 RBC 3.17 L Hgb 8.9 L Hct 27.2 L MCV 86.0 MCH 28.2 MCHC 32.8 RDW 16.6 H Plt Count 183 MPV 7.3 L Absolute Neuts (auto) 2.0 Neutrophils % 43.3 Lymphocytes % 37.3 Monocytes % 14.6 H Eosinophils % 4.5 D Basophils % 0.3 Nucleated RBC % 0 POC Glucometer 119 Iron 72 TIBC 205 L Iron Saturation 35 Unsaturated IBC 133 L 04/22/19 04/22/19 18:38 21:16 WBC RBC Hgb Hct MCV MCH MCHC RDW Plt Count MPV Absolute Neuts (auto) Neutrophils % Lymphocytes % Monocytes % Eosinophils % Basophils % Nucleated RBC % POC Glucometer 113 113 Iron TIBC Iron Saturation Unsaturated IBC plan: bgm qid novolog scale when diet resume may need levemir dose ck tsh free t4 hba1c
[2019-04-23] MEDS: HYDROmorphone HCl 2 MG/ML VIAL IVPB PRN ×4 (03:00→21:46)
[2019-04-23] MEDS: LACTATED RINGERS SOLUTION 1,000 ML IV SCH ×3 (05:15→21:47)
[2019-04-23 07:39] LABS: HEMATOCRIT 27.7 % (32.4-45.2); HEMOGLOBIN 9.4 GM/dL (10.7-15.3); MCH 28.8 pg (25.7-33.7); MCHC 33.8 g/dl (32.0-36.0); MEAN PLT VOLUME 7.9 fl (7.5-11.1); PLATELET COUNT 183 K/MM3 (134-434); RBC 3.26 M/mm3 (3.60-5.2); RDW 16.2 % (11.6-15.6); WHITE BLOOD COUNT 5.9 K/mm3 (4.0-10.0)
[2019-04-23 07:58] LABS: ALBUMIN 2.7 g/dl (3.4-5.0); BILIRUBIN,TOTAL 0.3 mg/dL (0.2-1); BLOOD UREA NITROGEN 6.4 mg/dL (7-18); CALCIUM 8.2 mg/dL (8.5-10.1); CREATININE 0.7 mg/dL (0.55-1.3); POTASSIUM 4.5 mmol/L (3.5-5.1); TOT PROT 5.3 g/dl (6.4-8.2)
[2019-04-23] MEDS ORDERED: DEXTROSE 5%-WATER - 50 ML IVPB ONE (08:41)
[2019-04-23] MEDS ORDERED: cefTRIAXone SODIUM 1 GM VIAL ONE (08:41)
[2019-04-23] MEDS: amLODIPine BESYLATE 10 MG TABLET (FP) PO SCH (09:03)
[2019-04-23] MEDS: LOSARTAN POTASSIUM 50 MG TABLET (FP) PO SCH (09:03)
[2019-04-23] MEDS: CEFTRIAXONE 1 GM in DEXTROSE 5%-WATER - 50 ML IVPB SCH (09:03)
[2019-04-23] MEDS: cloNIDine HCL 0.1 MG TABLET PO SCH (09:03)
--- NOTE | 2019-04-23 09:12 | PN ---
Progress Note (short form) - Note Progress Note: GENERAL SURGERY POD #1 Alert. C/o incisonal tenderness. Adequate control with meds as ordered. Hasn't been OOB yet. Denies n/v/f/c, CP , palpitations or SOB. Last Vital Signs Temp Pulse Resp BP Pulse Ox 98.2 F 52 L 20 152/58 L 97 04/23/ 06:08 04/23/19 06:08 04/23/19 06:08 04/23/19 06:08 04/22/19 15:45 CBC, BMP 04/23/19 06:40 04/23/19 06:40 Gen: nad ABD: dressing c/d/i. Problem List - Problems (1) Abdominal pain Assessment/Plan: POD #1 s/p Abdominal wound exploration, evacuation of infected seroma and wound irrigation Surgery Team to place WOUND VAC today Incentive spirometer Pain management Cont medical management CBC, BMP in AM Tight glycemic control Code(s): R10.9 - UNSPECIFIED ABDOMINAL PAIN Qualifiers: Abdominal location: generalized Qualified Code(s): R10.84 - Generalized abdominal pain (2) HTN (hypertension) Code(s): I10 - ESSENTIAL (PRIMARY) HYPERTENSION (3) Anemia Code(s): D64.9 - ANEMIA, UNSPECIFIED (4) CML (chronic myelocytic leukemia) Code(s): C92.10 - CHRONIC MYELOID LEUK, BCR/ABL-POSITIVE, NOT ACHIEVE REMIS (5) Diabetes mellitus with hyperosmolarity Code(s): E11.00 - TYPE 2 DIAB W HYPROSM W/O NONKET HYPRGLY-HYPROS COMA (NKH[facility])
--- NOTE | 2019-04-23 13:38 | PN ---
Progress Note, Physician Chief Complaint: Abdominal Pain Seroma History of Present Illness: Previous notes and events reviewed awake and alert NAD POD #1 Evacuation of infected Seroma and wound irrigation complain of pain to surgical site wound vac being placed by surgical PA - Current Medication List Current Medications: Active Medications Amlodipine Besylate (Norvasc -) 10 mg PO DAILY [facility] Last Admin: 04/23/19 09:03 Dose: 10 mg Clonidine (Catapres -) 0.1 mg PO DAILY [facility] Last Admin: 04/23/19 09:03 Dose: 0.1 mg Hydromorphone HCl (Dilaudid Vial -) 2 mg IVPB Q4H PRN PRN Reason: PAIN LEVEL 4 - 6 Last Admin: 04/23/19 12:11 Dose: 2 mg Ceftriaxone Sodium 1 gm/ (Dextrose) 50 mls @ 100 mls/hr IVPB DAILY [facility] Last Admin: 04/23/19 09:03 Dose: 100 mls/hr Metronidazole (Flagyl 500mg Premixed Ivpb -) 500 mg in 100 mls @ 100 mls/hr IVPB Q8H-IV [facility] Last Admin: 04/23/19 09:04 Dose: 100 mls/hr Lactated Ringer's (Lactated Ringers Solution) 1,000 mls @ 75 mls/hr IV ASDIR [facility] Last Admin: 04/23/19 05:15 Dose: 75 mls/hr Losartan Potassium (Cozaar -) 50 mg PO DAILY [facility] Last Admin: 04/23/19 09:03 Dose: 50 mg Melatonin (Melatonin) 5 mg PO HS [facility] Last Admin: 04/22/19 21:06 Dose: 5 mg Metoprolol Succinate (Toprol Xl -) 50 mg PO DAILY [facility] Last Admin: 04/23/19 09:03 Dose: 50 mg Ondansetron HCl (Zofran Injection) 4 mg IVPUSH Q6H PRN PRN Reason: NAUSEA AND/OR VOMITING - Objective Vital Signs: Vital Signs Temperature 98.2 F 04/23/19 06:08 Pulse Rate 52 L 04/23/19 06:08 Respiratory Rate 20 04/23/19 06:08 Blood Pressure 152/58 L 04/23/19 06:08 O2 Sat by Pulse Oximetry (%) 97 04/22/19 15:45 Constitutional: Yes: No Distress, Calm Eyes: Yes: Conjunctiva Clear HENT: Yes: Atraumatic Cardiovascular: Yes: Regular Rate and Rhythm Respiratory: Yes: Regular, CTA Bilaterally Gastrointestinal: Yes: Normal Bowel Sounds, Soft, Tenderness (surgical site) Genitourinary: Yes: Incontinence Musculoskeletal: Yes: Muscle Weakness Extremities: Yes: WNL Edema: No Wound/Incision: Yes: Dressing Dry and Intact Neurological: Yes: Alert, Oriented Psychiatric: Yes: Alert, Oriented Labs: CBC, BMP 04/23/19 06:40 04/23/19 06:40 INR, PTT INR 0.97 (0.83-1.09) 04/20/19 14:24 Microbiology 04/22/19 14:06 Abdomen Gram Stain - Final 04/22/19 14:06 Abdomen Gram Stain - Final 04/20/19 14:50 Urine - Urine Clean Catch Urine Culture - Final Vr Ec Faecalis Klebsiella Pneumoniae Problem List - Problems (1) Abdominal pain Assessment/Plan: -Surgery on board -POD #0 Evacuation of infected Seroma and wound irrigation -pain control -wound culture pending -wound vac -Incentive spirometer -daily dressing changes -IV antibiotics Code(s): R10.9 - UNSPECIFIED ABDOMINAL PAIN Qualifiers: Abdominal location: generalized Qualified Code(s): R10.84 - Generalized abdominal pain (2) HTN (hypertension) Assessment/Plan: -Amlodipine, Losartan, Metoprolol -low Na diet Code(s): I10 - ESSENTIAL (PRIMARY) HYPERTENSION (3) CML (chronic myelocytic leukemia) Assessment/Plan: -palliative consult Code(s): C92.10 - CHRONIC MYELOID LEUK, BCR/ABL-POSITIVE, NOT ACHIEVE REMIS (4) Diabetes Assessment/Plan: -[facility] -[facility] -HgA1c 4.9% Code(s): E11.9 - TYPE 2 DIABETES MELLITUS WITHOUT COMPLICATIONS Qualifiers: Diabetes mellitus type: type 2 (5) UTI (urinary tract infection) Assessment/Plan: -ID on board -no leukocytosis -afebrile -UC positive VRE/Kleb Pneumonaie Code(s): N39.0 - URINARY TRACT INFECTION, SITE NOT SPECIFIED Qualifiers: Urinary tract infection type: acute cystitis Hematuria presence: without hematuria Qualified Code(s): N30.00 - Acute cystitis without hematuria Assessment/Plan see problem list dvt ppx
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
--- NOTE | 2019-04-23 18:07 | PN ---
Progress Note (short form) - Note Progress Note: ID consult dictated imp/reccd infected seroma s/p mesh for hernia repair history of VRE in urine awaiting cultures now with VAC continue rocephin/flagyl for now will adjust antibiotics in am based on culture results contact isolation for VRE sulfa allergy noted Problem List - Problems (1) Infected seroma, postoperative Code(s): [id number] - (2) H/O hernia repair Code(s): Z98.890 - OTHER SPECIFIED POSTPROCEDURAL STATES; Z87.19 - PERSONAL HISTORY OF OTHER DISEASES OF THE DIGESTIVE SYSTEM (3) VRE (vancomycin resistant enterococcus) culture positive Code(s): Z22.39 - CARRIER OF OTHER SPECIFIED BACTERIAL DISEASES (4) Allergy to sulfa drugs Code(s): Z88.2 - ALLERGY STATUS TO SULFONAMIDES STATUS
--- NOTE | 2019-04-23 20:29 | CONS ---
DATE OF CONSULTATION: DATE OF DICTATION: 04/23/2019 INFECTIOUS DISEASE CONSULTATION HISTORY OF PRESENT ILLNESS: This is a 74-year-old woman with CML. She underwent a hernia repair February 21 with Phasix mesh and a partial omentectomy. She was at a retirement and discharged home. She apparently had a seroma that collected that was at the site that was needle drained twice by Dr. Caraballo. She subsequently developed some pain at the site and had some mucopurulent drainage from the umbilicus, so this was noted when she came to the ER on the . She had a CAT scan that was consistent with either hematoma versus infective seroma. She was taken to the OR. This was on the . She was started on ceftriaxone and Flagyl. She was taken to the operating room on the , where she had an abdominal wound exploration, evacuation of infected seroma and wound irrigation. She was noted to have a seroma cavity with minimal purulent fluid and umbilicus. Postoperatively she has had a VAC dressing placed to the site. She currently is resting comfortably. She is eating. She never had any associated fever or chills with this process. PAST MEDICAL HISTORY: Notable for CML, MS, fibromyalgia, hypertension, COPD, arthritis, and CVA. SURGICAL HISTORY: Notable for the hernia repair. SOCIAL HISTORY: There is no history of cigarette, alcohol, or substance use. ALLERGIES: She is allergic to SULFA medications. MEDICATION: Her medications at home include amlodipine, clonidine, gabapentin, insulin, losartan, melatonin, Reglan, Toprol XL, oxycodone, and Deltasone . REVIEW OF SYSTEMS: Currently she reports some discomfort at the VAC site, otherwise she is resting comfortably. She denies fevers, chills, cough, nausea, vomiting, or diarrhea. PHYSICAL EXAMINATION: Vital Signs: She has been afebrile since admission. Temperature 97.6, pulse 53, blood pressure 121/53, respiratory rate 18, she is saturating 98%. HEENT: Normocephalic. Eyes are anicteric. Neck: Supple. Lungs: Clear to auscultation. Heart: Regular rate and rhythm. Abdomen: Soft. She has a VAC dressing at her umbilicus. There is no surrounding erythema. Extremities: Without edema. LABORATORY: White count is 5.9, hemoglobin 9.4, platelets are 183, BUN and creatinine are 6 and 0.7, LFTs are normal, UA is negative. Urine culture done on admission notable for VRE and klebsiella. Gram stain from the seroma reveals rare polycytes with no organisms seen. Cultures are pending. CAT scan findings are as previously stated. IMPRESSION: In summary, this is a 74-year-old woman with an infected seroma currently on ceftriaxone and Flagyl which at this point I would continue. I do not think there is a point in changing antibiotics when the culture should be available in the morning. I would continue her vancomycin-resistant Enterobacteriaceae contact isolation and take for allergies. Further recommendations to follow. Jose Manuel [id number]
[2019-04-23] MEDS: MELATONIN 5 MG TABLETS PO SCH (21:46)
[2019-04-24] MEDS: HYDROmorphone HCl 2 MG/ML VIAL IVPB PRN ×4 (02:33→20:05)
[2019-04-24 07:14] LABS: HEMATOCRIT 25.6 % (32.4-45.2); HEMOGLOBIN 8.4 GM/dL (10.7-15.3); MCH 28.4 pg (25.7-33.7); MCHC 32.9 g/dl (32.0-36.0); MEAN CELL VOLUME 86.3 fl (80-96); MEAN PLT VOLUME 7.8 fl (7.5-11.1); PLATELET COUNT 173 K/MM3 (134-434); RBC 2.96 M/mm3 (3.60-5.2); RDW 16.4 % (11.6-15.6); WHITE BLOOD COUNT 5.8 K/mm3 (4.0-10.0)
[2019-04-24 07:58] LABS: ALBUMIN 2.6 g/dl (3.4-5.0); BILIRUBIN,TOTAL 0.3 mg/dL (0.2-1); BLOOD UREA NITROGEN 8.3 mg/dL (7-18); CALCIUM 8.1 mg/dL (8.5-10.1); CREATININE 0.7 mg/dL (0.55-1.3); POTASSIUM 3.9 mmol/L (3.5-5.1)
[2019-04-24] MEDS ORDERED: DEXTROSE 5%-WATER - 50 ML IVPB ONE (09:51)
[2019-04-24] MEDS ORDERED: cefTRIAXone SODIUM 1 GM VIAL ONE (09:51)
[2019-04-24] MEDS: amLODIPine BESYLATE 10 MG TABLET (FP) PO SCH (10:28)
[2019-04-24] MEDS: cloNIDine HCL 0.1 MG TABLET PO SCH (10:28)
[2019-04-24] MEDS: LOSARTAN POTASSIUM 50 MG TABLET (FP) PO SCH (10:28)
[2019-04-24] MEDS: CEFTRIAXONE 1 GM in DEXTROSE 5%-WATER - 50 ML IVPB SCH (10:29)
--- NOTE | 2019-04-24 11:55 | PN ---
Progress Note, Physician Chief Complaint: Abdominal Pain Seroma History of Present Illness: Previous notes and events reviewed awake and alert NAD POD #2 Evacuation of infected Seroma and wound irrigation complain of pain to surgical site wound vac being placed complain of nausea no BM but sts passing flatus - Current Medication List Current Medications: Active Medications Amlodipine Besylate (Norvasc -) 10 mg PO DAILY [facility] Last Admin: 04/24/19 10:28 Dose: 10 mg Clonidine (Catapres -) 0.1 mg PO DAILY [facility] Last Admin: 04/24/19 10:28 Dose: 0.1 mg Hydromorphone HCl (Dilaudid Vial -) 2 mg IVPB Q4H PRN PRN Reason: PAIN LEVEL 4 - 6 Last Admin: 04/24/19 11: Dose: 2 mg Ceftriaxone Sodium 1 gm/ (Dextrose) 50 mls @ 100 mls/hr IVPB DAILY [facility] Last Admin: 04/24/19 10:29 Dose: 100 mls/hr Metronidazole (Flagyl 500mg Premixed Ivpb -) 500 mg in 100 mls @ 100 mls/hr IVPB Q8H-IV [facility] Last Admin: 04/24/19 10:29 Dose: 100 mls/hr Lactated Ringer's (Lactated Ringers Solution) 1,000 mls @ 75 mls/hr IV ASDIR [facility] Last Admin: 04/23/19 21:47 Dose: 75 mls/hr Losartan Potassium (Cozaar -) 50 mg PO DAILY [facility] Last Admin: 04/24/19 10:28 Dose: 50 mg Melatonin (Melatonin) 5 mg PO HS [facility] Last Admin: 04/23/19 21:46 Dose: 5 mg Metoprolol Succinate (Toprol Xl -) 50 mg PO DAILY [facility] Last Admin: 04/24/19 10:28 Dose: 50 mg Ondansetron HCl (Zofran Injection) 4 mg IVPUSH Q6H PRN PRN Reason: NAUSEA AND/OR VOMITING - Objective Vital Signs: Vital Signs Temperature 98.0 F 04/24/19 06:10 Pulse Rate 52 L 04/24/19 06:10 Respiratory Rate 18 04/24/19 09:00 Blood Pressure 148/60 04/24/19 06:10 O2 Sat by Pulse Oximetry (%) 100 04/24/19 09:00 Constitutional: Yes: No Distress, Calm Eyes: Yes: Conjunctiva Clear HENT: Yes: Atraumatic Cardiovascular: Yes: Regular Rate and Rhythm Respiratory: Yes: Regular, CTA Bilaterally Gastrointestinal: Yes: Normal Bowel Sounds, Soft, Tenderness (surgical site) Genitourinary: Yes: Incontinence Musculoskeletal: Yes: Muscle Weakness Extremities: Yes: WNL Neurological: Yes: Alert, Oriented Psychiatric: Yes: Alert, Oriented Labs: CBC, BMP 04/24/19 06:20 04/24/19 06:20 INR, PTT INR 0.97 (0.83-1.09) 04/20/19 14:24 Problem List - Problems (1) Abdominal pain Assessment/Plan: -Surgery on board -POD #1 Evacuation of infected Seroma and wound irrigation -pain control -wound culture NEG -wound vac -Incentive spirometer -daily dressing changes -IV antibiotics Code(s): R10.9 - UNSPECIFIED ABDOMINAL PAIN Qualifiers: Abdominal location: generalized Qualified Code(s): R10.84 - Generalized abdominal pain (2) HTN (hypertension) Assessment/Plan: -Amlodipine, Losartan, Metoprolol -low Na diet Code(s): I10 - ESSENTIAL (PRIMARY) HYPERTENSION (3) CML (chronic myelocytic leukemia) Assessment/Plan: -palliative consult Code(s): C92.10 - CHRONIC MYELOID LEUK, BCR/ABL-POSITIVE, NOT ACHIEVE REMIS (4) Diabetes Assessment/Plan: -BGM ACHS -ISS -HgA1c 4.9% Code(s): E11.9 - TYPE 2 DIABETES MELLITUS WITHOUT COMPLICATIONS Qualifiers: Diabetes mellitus type: type 2 (5) UTI (urinary tract infection) Assessment/Plan: -ID on board -no leukocytosis -afebrile -UC positive VRE/Kleb Pneumonaie Code(s): N39.0 - URINARY TRACT INFECTION, SITE NOT SPECIFIED Qualifiers: Urinary tract infection type: acute cystitis Hematuria presence: without hematuria Qualified Code(s): N30.00 - Acute cystitis without hematuria Assessment/Plan see problem list dvt ppx
[2019-04-24] MEDS: LACTATED RINGERS SOLUTION 1,000 ML IV SCH (17:26)
[2019-04-24] MEDS: ONDANSETRON 4 MG/2 ML VIAL IVPUSH PRN (19:07)
--- NOTE | 2019-04-24 19:50 | PN ---
Progress Note, Physician Chief Complaint: infected wound seroma History of Present Illness: patient c/o wound pain and severe anxiety - Current Medication List Current Medications: Active Medications Amlodipine Besylate (Norvasc -) 10 mg PO DAILY [facility] Last Admin: 04/24/19 10:28 Dose: 10 mg Clonidine (Catapres -) 0.1 mg PO DAILY [facility] Last Admin: 04/24/19 10:28 Dose: 0.1 mg Hydromorphone HCl (Dilaudid Vial -) 2 mg IVPB Q4H PRN PRN Reason: PAIN LEVEL 4 - 6 Last Admin: 04/24/19 11:19 Dose: 2 mg Ceftriaxone Sodium 1 gm/ (Dextrose) 50 mls @ 100 mls/hr IVPB DAILY [facility] Last Admin: 04/24/19 10:29 Dose: 100 mls/hr Metronidazole (Flagyl 500mg Premixed Ivpb -) 500 mg in 100 mls @ 100 mls/hr IVPB Q8H-IV [facility] Last Admin: 04/24/19 17:28 Dose: 100 mls/hr Lactated Ringer's (Lactated Ringers Solution) 1,000 mls @ 75 mls/hr IV ASDIR [facility] Last Admin: 04/24/19 17:26 Dose: 75 mls/hr Losartan Potassium (Cozaar -) 50 mg PO DAILY [facility] Last Admin: 04/24/19 10:28 Dose: 50 mg Melatonin (Melatonin) 5 mg PO HS [facility] Last Admin: 04/23/19 21:46 Dose: 5 mg Metoprolol Succinate (Toprol Xl -) 50 mg PO DAILY [facility] Last Admin: 04/24/19 10:28 Dose: 50 mg Ondansetron HCl (Zofran Injection) 4 mg IVPUSH Q6H PRN PRN Reason: NAUSEA AND/OR VOMITING Last Admin: 04/24/19 19:07 Dose: 4 mg - Objective Vital Signs: Vital Signs Temperature 98.4 F 04/24/19 19:20 Pulse Rate 51 L 04/24/19 19:20 Respiratory Rate 18 04/24/19 19:20 Blood Pressure 132/57 L 04/24/19 19:20 O2 Sat by Pulse Oximetry (%) 100 04/24/19 09:00 Gastrointestinal: Yes: Soft, Abdomen, Obese, Tenderness (over operative wound, wound vac in place) Labs: CBC, BMP 04/24/19 06:20 04/24/19 06:20 INR, PTT INR 0.97 (0.83-1.09) 04/20/19 14:24 Problem List - Problems (1) Infected seroma, postoperative Assessment/Plan: f/u wound C/S NTP removed, wound clean with sparse subcutaneous tissue necrosis Wet to dry NS dressing applied Will reassess in am whether to continue NTP (moderate to severe wound pain) continue antibiotics Code(s): [id number] -
[2019-04-24] MEDS ORDERED: ALPRAZolam 0.25 MG TABLET PO ONE (20:59)
[2019-04-24] MEDS: MELATONIN 5 MG TABLETS PO SCH (21:36)
[2019-04-24] MEDS ORDERED: ZOLPIDEM TARTRATE 5 MG TABLET PO PRN (22:00)
[2019-04-25] MEDS: HYDROmorphone HCl 2 MG/ML VIAL IVPB PRN ×2 (01:56→06:47)
[2019-04-25] MEDS: LACTATED RINGERS SOLUTION 1,000 ML IV SCH (07:10)
[2019-04-25 07:33] LABS: HEMATOCRIT 26.4 % (32.4-45.2); HEMOGLOBIN 8.5 GM/dL (10.7-15.3); MCHC 32.4 g/dl (32.0-36.0); MEAN CELL VOLUME 86.4 fl (80-96); MEAN PLT VOLUME 7.6 fl (7.5-11.1); PLATELET COUNT 181 K/MM3 (134-434); RBC 3.05 M/mm3 (3.60-5.2); RDW 16.7 % (11.6-15.6); WHITE BLOOD COUNT 5.3 K/mm3 (4.0-10.0)
[2019-04-25 08:06] LABS: ALBUMIN 2.5 g/dl (3.4-5.0); BILIRUBIN,TOTAL 0.3 mg/dL (0.2-1); BLOOD UREA NITROGEN 7.2 mg/dL (7-18); CALCIUM 8.2 mg/dL (8.5-10.1); CREATININE 0.7 mg/dL (0.55-1.3); TOT PROT 4.9 g/dl (6.4-8.2)
[2019-04-25] MEDS ORDERED: DEXTROSE 5%-WATER - 100 ML IVPB ONE (09:39)
[2019-04-25] MEDS ORDERED: cefTRIAXone SODIUM 1 GM VIAL ONE (09:39)
[2019-04-25] MEDS: ONDANSETRON 4 MG/2 ML VIAL IVPUSH PRN (10:43)
[2019-04-25] MEDS: cloNIDine HCL 0.1 MG TABLET PO SCH (10:44)
[2019-04-25] MEDS: LOSARTAN POTASSIUM 50 MG TABLET (FP) PO SCH (10:45)
[2019-04-25] MEDS: CEFTRIAXONE 1 GM in DEXTROSE 5%-WATER - 50 ML IVPB SCH (10:45)
[2019-04-25] MEDS: amLODIPine BESYLATE 10 MG TABLET (FP) PO SCH (10:45)
--- NOTE | 2019-04-25 11:39 | PN ---
Progress Note, Physician Chief Complaint: Abdominal Pain Seroma History of Present Illness: Previous notes and events reviewed awake and alert NAD POD #3 Evacuation of infected Seroma and wound irrigation complain of pain to surgical site wound vac removed by surgery to inspect wound and will be placed back on continue with complaints of nausea complain of feeling anxious and nervous - Current Medication List Current Medications: Active Medications Amlodipine Besylate (Norvasc -) 10 mg PO DAILY [facility] Last Admin: 04/25/19 10:45 Dose: 10 mg Clonidine (Catapres -) 0.1 mg PO DAILY [facility] Last Admin: 04/25/19 10:44 Dose: 0.1 mg Hydromorphone HCl (Dilaudid Vial -) 2 mg IVPB Q4H PRN PRN Reason: PAIN LEVEL 4 - 6 Last Admin: 04/25/19 06:47 Dose: 2 mg Ceftriaxone Sodium 1 gm/ (Dextrose) 50 mls @ 100 mls/hr IVPB DAILY [facility] Last Admin: 04/25/19 10:45 Dose: 100 mls/hr Metronidazole (Flagyl 500mg Premixed Ivpb -) 500 mg in 100 mls @ 100 mls/hr IVPB Q8H-IV [facility] Last Admin: 04/25/19 01:10 Dose: 100 mls/hr Lactated Ringer's (Lactated Ringers Solution) 1,000 mls @ 75 mls/hr IV ASDIR [facility] Last Admin: 04/25/19 07:10 Dose: 75 mls/hr Losartan Potassium (Cozaar -) 50 mg PO DAILY [facility] Last Admin: 04/25/19 10:45 Dose: 50 mg Melatonin (Melatonin) 5 mg PO HS [facility] Last Admin: 04/24/19 21:36 Dose: 5 mg Metoprolol Succinate (Toprol Xl -) 50 mg PO DAILY [facility] Last Admin: 04/25/19 10:44 Dose: 50 mg - Objective Vital Signs: Vital Signs Temperature 98.8 F 04/25/19 09:00 Pulse Rate 53 L 04/25/19 09:00 Respiratory Rate 22 H 04/25/19 09:00 Blood Pressure 146/56 L 04/25/19 09:00 O2 Sat by Pulse Oximetry (%) 100 04/25/19 09:00 Constitutional: Yes: No Distress, Calm Eyes: Yes: Conjunctiva Clear HENT: Yes: Atraumatic Cardiovascular: Yes: Regular Rate and Rhythm Respiratory: Yes: Regular, CTA Bilaterally Gastrointestinal: Yes: Normal Bowel Sounds, Soft, Tenderness (surgical site) Genitourinary: Yes: Incontinence Musculoskeletal: Yes: Muscle Weakness Extremities: Yes: WNL Edema: No Wound/Incision: Yes: Dressing Dry and Intact Neurological: Yes: Alert, Oriented Psychiatric: Yes: Alert, Oriented Labs: CBC, BMP 04/25/19 06:25 04/25/19 06:25 INR, PTT INR 0.97 (0.83-1.09) 04/20/19 14:24 Problem List - Problems (1) Abdominal pain Assessment/Plan: -Surgery on board -POD #3 Evacuation of infected Seroma and wound irrigation -pain control -wound culture NEG, repeat culture pending -wound vac -Incentive spirometer -daily dressing changes -IV antibiotics Code(s): R10.9 - UNSPECIFIED ABDOMINAL PAIN Qualifiers: Abdominal location: generalized Qualified Code(s): R10.84 - Generalized abdominal pain (2) HTN (hypertension) Assessment/Plan: -Amlodipine, Losartan, Metoprolol -low Na diet Code(s): I10 - ESSENTIAL (PRIMARY) HYPERTENSION (3) CML (chronic myelocytic leukemia) Assessment/Plan: -palliative consult Code(s): C92.10 - CHRONIC MYELOID LEUK, BCR/ABL-POSITIVE, NOT ACHIEVE REMIS (4) Diabetes Assessment/Plan: -BGM ACHS -ISS -HgA1c 4.9% Code(s): E11.9 - TYPE 2 DIABETES MELLITUS WITHOUT COMPLICATIONS Qualifiers: Diabetes mellitus type: type 2 (5) UTI (urinary tract infection) Assessment/Plan: -ID on board -no leukocytosis -afebrile -Ceftriaxone -UC positive VRE/Kleb Pneumonaie Code(s): N39.0 - URINARY TRACT INFECTION, SITE NOT SPECIFIED Qualifiers: Urinary tract infection type: acute cystitis Hematuria presence: without hematuria Qualified Code(s): N30.00 - Acute cystitis without hematuria (6) Poor appetite Assessment/Plan: -Dietary consult -Calorie count Code(s): R63.0 - ANOREXIA Assessment/Plan see problem list dvt ppx begin d/c planning when switched to PO antibiotics
[2019-04-25] MEDS: oxyCODONE HCL 5 MG TABLET PO PRN ×2 (14:28→21:54)
--- NOTE | 2019-04-25 17:08 | PN ---
Progress Note (short form) - Note Progress Note: feels well vac replaced wound looks clean per surgeon and nurse Vital Signs Period Temp Pulse Resp BP Sys/Teague Pulse Ox Last 24 Hr 97.6 F-98.8 F 51-62 18-22 132-151/56-63 100-100 cor-rrr lungs clear abd soft,nt ext- no edema vac in place CBC, BMP 04/25/19 06:25 04/25/19 06:25 Microbiology 04/22/19 14:06 Abdomen Gram Stain - Final 04/22/19 14:06 Abdomen Wound Culture - Preliminary 04/22/19 14:06 Abdomen Gram Stain - Final 04/22/19 14:06 Abdomen Wound Culture - Final NO GROWTH AFTER 48 HOURS INCUBATION 04/20/19 14:50 Urine - Urine Clean Catch Urine Culture - Final Vr Ec Faecalis Klebsiella Pneumoniae a/p s/p drainage of seroma- d/w dr pandya will continue rocephin/flagyl for the he wants to evaluate the patient here then will switch to po antibiotics on Sunday contact isolation for VRE sulfa allergy noted Problem List - Problems (1) Infected seroma, postoperative Code(s): [id number] - (2) H/O hernia repair Code(s): Z98.890 - OTHER SPECIFIED POSTPROCEDURAL STATES; Z87.19 - PERSONAL HISTORY OF OTHER DISEASES OF THE DIGESTIVE SYSTEM (3) VRE (vancomycin resistant enterococcus) culture positive Code(s): Z22.39 - CARRIER OF OTHER SPECIFIED BACTERIAL DISEASES (4) Allergy to sulfa drugs Code(s): Z88.2 - ALLERGY STATUS TO SULFONAMIDES STATUS
[2019-04-25] MEDS ORDERED: ONDANSETRON 4 MG/2 ML VIAL IVPUSH ONE (18:02)
--- NOTE | 2019-04-25 19:41 | CON.PSY ---
Psychiatry Consult Chief Complaint: Asked to see Ms. Rubin for anxiety and 'feeling nervous' History of Present Problem: Patient was see ths pm at her bedside. She was found awake, alert and fully oriented. She understands the reason for her hospitalization and admits to feeling 'more nervous; lately with her failing health her hospitalization and her discharge to [place] She also c/o of pain, nausea, and not sleeping . Symptoms: reports: Depressed Mood, Sleep Disturbance, Anxiety, Restlessness - Current Medications Current Medications: Active Medications Amlodipine Besylate (Norvasc -) 10 mg PO DAILY [facility] Last Admin: 04/25/19 10:45 Dose: 10 mg Clonidine (Catapres -) 0.1 mg PO DAILY [facility] Last Admin: 04/25/19 10:44 Dose: 0.1 mg Ceftriaxone Sodium 1 gm/ (Dextrose) 50 mls @ 100 mls/hr IVPB DAILY [facility] Last Admin: 04/25/19 10:45 Dose: 100 mls/hr Metronidazole (Flagyl 500mg Premixed Ivpb -) 500 mg in 100 mls @ 100 mls/hr IVPB Q8H-IV [facility] Last Admin: 04/25/19 18:25 Dose: 100 mls/hr Losartan Potassium (Cozaar -) 50 mg PO DAILY [facility] Last Admin: 04/25/19 10:45 Dose: 50 mg Melatonin (Melatonin) 5 mg PO HS [facility] Last Admin: 04/24/19 21:36 Dose: 5 mg Metoprolol Succinate (Toprol Xl -) 50 mg PO DAILY [facility] Last Admin: 04/25/19 10:44 Dose: 50 mg Oxycodone HCl (Roxicodone -) 10 mg PO Q6H PRN PRN Reason: PAIN LEVEL 5-10 Last Admin: 04/25/19 14:28 Dose: 10 mg Zolpidem Tartrate (Ambien -) 5 mg PO HS PRN PRN Reason: INSOMNIA - Allergies Allergies: Allergies Allergy/AdvReac Type Severity Reaction Status Date / Time Sulfa (Sulfonamide Allergy Severe Hives Verified 02/09/19 09:41 Antibiotics) - Current Living Status Usual Living Arrangement: Correction - Affect Affect: Constrictive
--- NOTE | 2019-04-25 20:04 | PN ---
Progress Note, Physician Chief Complaint: anxious feels surgery was good - Current Medication List Current Medications: Active Medications Acetaminophen (Tylenol -) 650 mg PO Q6H PRN PRN Reason: PAIN LEVEL 1-5 Amlodipine Besylate (Norvasc -) 10 mg PO DAILY [facility] Last Admin: 04/25/19 10:45 Dose: 10 mg Buspirone HCl (Buspar -) 5 mg PO BID [facility] Clonidine (Catapres -) 0.1 mg PO DAILY [facility] Last Admin: 04/25/19 10:44 Dose: 0.1 mg Ceftriaxone Sodium 1 gm/ (Dextrose) 50 mls @ 100 mls/hr IVPB DAILY [facility] Last Admin: 04/25/19 10:45 Dose: 100 mls/hr Metronidazole (Flagyl 500mg Premixed Ivpb -) 500 mg in 100 mls @ 100 mls/hr IVPB Q8H-IV [facility] Last Admin: 04/25/19 18:25 Dose: 100 mls/hr Losartan Potassium (Cozaar -) 50 mg PO DAILY [facility] Last Admin: 04/25/19 10:45 Dose: 50 mg Melatonin (Melatonin) 5 mg PO HS [facility] Last Admin: 04/24/19 21:36 Dose: 5 mg Metoprolol Succinate (Toprol Xl -) 50 mg PO DAILY [facility] Last Admin: 04/25/19 10:44 Dose: 50 mg Oxycodone HCl (Roxicodone -) 10 mg PO Q6H PRN PRN Reason: PAIN LEVEL 5-10 Last Admin: 04/25/19 14:28 Dose: 10 mg Zolpidem Tartrate (Ambien -) 5 mg PO HS PRN PRN Reason: INSOMNIA - Objective Vital Signs: Vital Signs Temperature 98.7 F 04/25/19 18:00 Pulse Rate 53 L 04/25/19 18:00 Respiratory Rate 20 04/25/19 18:00 Blood Pressure 151/59 L 04/25/19 18:00 O2 Sat by Pulse Oximetry (%) 99 04/25/19 19:38 Constitutional: Yes: Calm Eyes: Yes: EOM Intact HENT: Yes: Normocephalic Neck: Yes: Trachea Midline Cardiovascular: Yes: Regular Rate and Rhythm Respiratory: Yes: CTA Bilaterally Gastrointestinal: Yes: Normal Bowel Sounds ...Rectal Exam: Yes: Deferred Genitourinary: Yes: WNL Breast(s): Yes: WNL Musculoskeletal: Yes: Back Pain, Muscle Weakness Extremities: Yes: WNL Edema: No Wound/Incision: Yes: Dressing Dry and Intact, Draining Neurological: Yes: Alert, Oriented Labs: CBC, BMP 04/25/19 06:25 04/25/19 06:25 INR, PTT INR 0.97 (0.83-1.09) 04/20/19 14:24 Problem List - Problems (1) Ventral hernia with bowel obstruction Code(s): K43.6 - OTHER AND UNSP VENTRAL HERNIA WITH OBSTRUCTION, W/O GANGRENE (2) Abdominal pain Code(s): R10.9 - UNSPECIFIED ABDOMINAL PAIN Qualifiers: Abdominal location: generalized Qualified Code(s): R10.84 - Generalized abdominal pain (3) HTN (hypertension) Code(s): I10 - ESSENTIAL (PRIMARY) HYPERTENSION (4) Abnormal antibody titer Code(s): R76.8 - OTHER SPECIFIED ABNORMAL IMMUNOLOGICAL FINDINGS IN SERUM (5) Acute kidney failure Code(s): N17.9 - ACUTE KIDNEY FAILURE, UNSPECIFIED (6) C. difficile diarrhea Code(s): A04.72 - ENTEROCOLITIS D/T CLOSTRIDIUM DIFFICILE, NOT SPCF RECUR (7) CML (chronic myelocytic leukemia) Code(s): C92.10 - CHRONIC MYELOID LEUK, BCR/ABL-POSITIVE, NOT ACHIEVE REMIS (8) COPD (chronic obstructive pulmonary disease) Code(s): J44.9 - CHRONIC OBSTRUCTIVE PULMONARY DISEASE, UNSPECIFIED Assessment/Plan Current Active Problems Abdominal pain (Acute) Allergy to sulfa drugs (Acute) H/O hernia repair (Acute) HTN (hypertension) (Acute) Infected seroma, postoperative (Acute) Poor appetite (Acute) VRE (vancomycin resistant enterococcus) culture positive (Acute) Ventral hernia with bowel obstruction (Acute) Abnormal Lab Results 04/25/19 04/25/19 06:25 06:25 RBC 3.05 L Hgb 8.5 L Hct 26.4 L RDW 16.7 H Chloride 108 H Anion Gap 3 L Random Glucose 73 L Calcium 8.2 L AST 8 L ALT 8 L Total Protein 4.9 L Albumin 2.5 L Laboratory Results - last 24 hr 04/24/19 04/25/19 04/25/19 22:16 05:44 06:25 WBC 5.3 RBC 3.05 L Hgb 8.5 L Hct 26.4 L MCV 86.4 MCH 28.0 MCHC 32.4 RDW 16.7 H Plt Count 181 MPV 7.6 Sodium Potassium Chloride Carbon Dioxide Anion Gap BUN Creatinine Est GFR (CKD-EPI)AfAm Est GFR (CKD-EPI)NonAf POC Glucometer 102 73 Random Glucose Calcium Total Bilirubin AST ALT Alkaline Phosphatase Total Protein Albumin 04/25/19 04/25/19 04/25/19 06:25 11:02 17:38 WBC RBC Hgb Hct MCV MCH MCHC RDW Plt Count MPV Sodium 141 Potassium 4.0 Chloride 108 H Carbon Dioxide 30 Anion Gap 3 L BUN 7.2 Creatinine 0.7 Est GFR (CKD-EPI)AfAm 98.92 Est GFR (CKD-EPI)NonAf 85.35 POC Glucometer 98 100 Random Glucose 73 L Calcium 8.2 L Total Bilirubin 0.3 AST 8 L ALT 8 L Alkaline Phosphatase 58 Total Protein 4.9 L Albumin 2.5 L plan: continue wound care euthyroid clinically bgm q am
[2019-04-25] MEDS: busPIRone HCL 5 MG TABLET PO SCH (21:52)
[2019-04-25] MEDS: ACETAMINOPHEN 325 MG TABLET (FP) PO PRN (21:52)
[2019-04-25] MEDS: MELATONIN 5 MG TABLETS PO SCH (21:52)
[2019-04-26] MEDS: oxyCODONE HCL 5 MG TABLET PO PRN ×3 (05:16→18:30)
[2019-04-26] MEDS: ACETAMINOPHEN 325 MG TABLET (FP) PO PRN ×2 (05:17→12:33)
[2019-04-26 06:40] LABS: HEMATOCRIT 27.3 % (32.4-45.2); HEMOGLOBIN 9.1 GM/dL (10.7-15.3); MCH 28.6 pg (25.7-33.7); MCHC 33.3 g/dl (32.0-36.0); MEAN CELL VOLUME 86.1 fl (80-96); MEAN PLT VOLUME 7.5 fl (7.5-11.1); PLATELET COUNT 194 K/MM3 (134-434); RBC 3.17 M/mm3 (3.60-5.2); RDW 16.6 % (11.6-15.6); WHITE BLOOD COUNT 4.8 K/mm3 (4.0-10.0)
[2019-04-26 07:03] LABS: ALBUMIN 2.6 g/dl (3.4-5.0); BILIRUBIN,TOTAL 0.3 mg/dL (0.2-1); BLOOD UREA NITROGEN 5.5 mg/dL (7-18); CALCIUM 8.2 mg/dL (8.5-10.1); CREATININE 0.7 mg/dL (0.55-1.3); POTASSIUM 3.7 mmol/L (3.5-5.1); TOT PROT 5.1 g/dl (6.4-8.2)
--- NOTE | 2019-04-26 07:27 | PN ---
Progress Note, Physician Chief Complaint: Abdominal Pain Seroma History of Present Illness: NAD c/o heartburn anxiety a little better on buspirone Seen by Psych - Current Medication List Current Medications: Active Medications Acetaminophen (Tylenol -) 650 mg PO Q6H PRN PRN Reason: PAIN LEVEL 1-5 Last Admin: 04/26/19 05:17 Dose: 650 mg Amlodipine Besylate (Norvasc -) 10 mg PO DAILY [facility] Last Admin: 04/25/19 10:45 Dose: 10 mg Buspirone HCl (Buspar -) 5 mg PO BID [facility] Last Admin: 04/25/19 21:52 Dose: 5 mg Clonidine (Catapres -) 0.1 mg PO DAILY [facility] Last Admin: 04/25/19 10:44 Dose: 0.1 mg Ceftriaxone Sodium 1 gm/ (Dextrose) 50 mls @ 100 mls/hr IVPB DAILY [facility] Last Admin: 04/25/19 10:45 Dose: 100 mls/hr Metronidazole (Flagyl 500mg Premixed Ivpb -) 500 mg in 100 mls @ 100 mls/hr IVPB Q8H-IV [facility] Last Admin: 04/26/19 01:24 Dose: 100 mls/hr Insulin Aspart (Novolog Vial Sliding Scale -) 1 vial SQ BIDAC [facility]; Protocol Losartan Potassium (Cozaar -) 50 mg PO DAILY [facility] Last Admin: 04/25/19 10:45 Dose: 50 mg Melatonin (Melatonin) 5 mg PO HS [facility] Last Admin: 04/25/19 21:52 Dose: 5 mg Metoprolol Succinate (Toprol Xl -) 50 mg PO DAILY [facility] Last Admin: 04/25/19 10:44 Dose: 50 mg Oxycodone HCl (Roxicodone -) 10 mg PO Q6H PRN PRN Reason: PAIN LEVEL 5-10 Last Admin: 04/26/19 05:16 Dose: 10 mg Zolpidem Tartrate (Ambien -) 5 mg PO HS PRN PRN Reason: INSOMNIA - Objective Vital Signs: Vital Signs Temperature 97.8 F 04/26/19 05:19 Pulse Rate 60 04/26/19 05:19 Respiratory Rate 18 04/26/19 05:19 Blood Pressure 145/61 04/26/19 05:19 O2 Sat by Pulse Oximetry (%) 99 04/25/19 19:38 Constitutional: Yes: Well Nourished, No Distress, Calm Cardiovascular: Yes: Regular Rate and Rhythm Respiratory: Yes: Regular Gastrointestinal: Yes: Normal Bowel Sounds, Soft, Abdomen, Obese Musculoskeletal: Yes: Muscle Weakness Extremities: Yes: WNL Edema: No Peripheral Pulses WNL: Yes Wound/Incision: Yes: Dressing Dry and Intact (with wound vac) Neurological: Yes: Alert, Oriented Psychiatric: Yes: Alert, Oriented Labs: CBC, BMP 04/26/19 06:20 04/26/19 06:20 INR, PTT INR 0.97 (0.83-1.09) 04/20/19 14:24 Assessment/Plan (1) Abdominal pain Assessment/Plan: -Surgery on board -POD #4 Evacuation of infected Seroma and wound irrigation -pain control -wound culture NEG, repeat culture: Microbiology 04/22/19 14:06 Gram Stain - Final Abdomen Wound Culture - Preliminary 04/22/19 14:06 Gram Stain - Final Abdomen Wound Culture - Final NO GROWTH AFTER 48 HOURS INCUBATION -wound vac -Incentive spirometer -daily dressing changes -IV antibiotics Code(s): R10.9 - UNSPECIFIED ABDOMINAL PAIN Qualifiers: Abdominal location: generalized Qualified Code(s): R10.84 - Generalized abdominal pain (2) HTN (hypertension) Assessment/Plan: -Amlodipine, Losartan, Metoprolol -low Na diet Code(s): I10 - ESSENTIAL (PRIMARY) HYPERTENSION (3) CML (chronic myelocytic leukemia) Assessment/Plan: -palliative consult Code(s): C92.10 - CHRONIC MYELOID LEUK, BCR/ABL-POSITIVE, NOT ACHIEVE REMIS (4) Diabetes Assessment/Plan: -[facility] -[facility] -HgA1c 4.9% Code(s): E11.9 - TYPE 2 DIABETES MELLITUS WITHOUT COMPLICATIONS Qualifiers: Diabetes mellitus type: type 2 (5) UTI (urinary tract infection) Assessment/Plan: -ID on board -no leukocytosis -afebrile -Ceftriaxone -UC positive VRE/Kleb Pneumonaie Code(s): N39.0 - URINARY TRACT INFECTION, SITE NOT SPECIFIED Qualifiers: Urinary tract infection type: acute cystitis Hematuria presence: without hematuria Qualified Code(s): N30.00 - Acute cystitis without hematuria (6) Poor appetite Assessment/Plan: -Dietary consult -Calorie count Code(s): R63.0 - ANOREXIA Assessment/Plan see problem list dvt ppx begin d/c planning when switched to PO antibiotics
[2019-04-26] MEDS: INSULIN SLIDING SCALE (NOVOLOG) 1 VIAL SQ SCH ×2 (08:20→16:42)
[2019-04-26] MEDS: MAG HYDROX/AL HYDROX/SIMETH 30 ML UNIT-DOSE CUP PO PRN (08:26)
[2019-04-26] MEDS ORDERED: DEXTROSE 5%-WATER - 50 ML IVPB ONE (09:06)
[2019-04-26] MEDS ORDERED: cefTRIAXone SODIUM 1 GM VIAL ONE (09:06)
[2019-04-26] MEDS: LOSARTAN POTASSIUM 50 MG TABLET (FP) PO SCH (09:08)
[2019-04-26] MEDS: busPIRone HCL 5 MG TABLET PO SCH ×2 (09:08→21:40)
[2019-04-26] MEDS: cloNIDine HCL 0.1 MG TABLET PO SCH (09:08)
[2019-04-26] MEDS: CEFTRIAXONE 1 GM in DEXTROSE 5%-WATER - 50 ML IVPB SCH (09:09)
[2019-04-26] MEDS: amLODIPine BESYLATE 10 MG TABLET (FP) PO SCH (09:09)
[2019-04-26] MEDS ORDERED: ONDANSETRON 4 MG/2 ML VIAL IVPUSH PRN (09:30)
--- NOTE | 2019-04-26 15:27 | PN ---
Progress Note, Physician Chief Complaint: infected wound seroma History of Present Illness: Had nausea and vomiting this am c/o poor appetite + bm wound pain is less on NPWT - Current Medication List Current Medications: Active Medications Acetaminophen (Tylenol -) 650 mg PO Q6H PRN PRN Reason: PAIN LEVEL 1-5 Last Admin: 04/26/19 12:33 Dose: 650 mg Al Hydroxide/Mg Hydroxide (Mylanta Oral Suspension -) 30 ml PO Q8H PRN PRN Reason: INDIGESTION Last Admin: 04/26/19 08:26 Dose: 30 ml Amlodipine Besylate (Norvasc -) 10 mg PO DAILY [facility] Last Admin: 04/26/19 09:09 Dose: 10 mg Buspirone HCl (Buspar -) 5 mg PO BID [facility] Last Admin: 04/26/19 09:08 Dose: 5 mg Clonidine (Catapres -) 0.1 mg PO DAILY [facility] Last Admin: 04/26/19 09:08 Dose: 0.1 mg Ceftriaxone Sodium 1 gm/ (Dextrose) 50 mls @ 100 mls/hr IVPB DAILY [facility] Last Admin: 04/26/19 09:09 Dose: 100 mls/hr Metronidazole (Flagyl 500mg Premixed Ivpb -) 500 mg in 100 mls @ 100 mls/hr IVPB Q8H-IV [facility] Last Admin: 04/26/19 09:32 Dose: 100 mls/hr Insulin Aspart (Novolog Vial Sliding Scale -) 1 vial SQ BIDAC [facility]; Protocol Last Admin: 04/26/19 08:20 Dose: Not Given Losartan Potassium (Cozaar -) 50 mg PO DAILY [facility] Last Admin: 04/26/19 09:08 Dose: 50 mg Melatonin (Melatonin) 5 mg PO HS [facility] Last Admin: 04/25/19 21:52 Dose: 5 mg Metoprolol Succinate (Toprol Xl -) 50 mg PO DAILY [facility] Last Admin: 04/26/19 09:31 Dose: 50 mg Ondansetron HCl (Zofran Injection) 4 mg IVPUSH Q8H PRN PRN Reason: NAUSEA Oxycodone HCl (Roxicodone -) 10 mg PO Q6H PRN PRN Reason: PAIN LEVEL 5-10 Last Admin: 04/26/19 12:32 Dose: 10 mg Zolpidem Tartrate (Ambien -) 5 mg PO HS PRN PRN Reason: INSOMNIA - Objective Vital Signs: Vital Signs Temperature 98.6 F 04/26/19 14:12 Pulse Rate 53 L 04/26/19 14:12 Respiratory Rate 20 04/26/19 14:12 Blood Pressure 127/56 L 04/26/19 14:12 O2 Sat by Pulse Oximetry (%) 99 04/26/19 08:45 Constitutional: Yes: No Distress Gastrointestinal: Yes: Soft, Abdomen, Obese, Other (NPWT cannister with minimal drainage) Labs: CBC, BMP 04/26/19 06:20 04/26/19 06:20 INR, PTT INR 0.97 (0.83-1.09) 04/20/19 14:24 Problem List - Problems (1) Infected seroma, postoperative Assessment/Plan: Portable AXR to r/o SBO continue NPWT Code(s): [id number] -
[2019-04-26] MEDS ORDERED: BENZOCAINE 28 GM HEMORRHOIDAL OINTMENT PR ONE (18:01)
[2019-04-26] MEDS: MELATONIN 5 MG TABLETS PO SCH (21:40)
[2019-04-26] MEDS: ZOLPIDEM TARTRATE 5 MG TABLET PO PRN (21:40)
[2019-04-27] MEDS: oxyCODONE HCL 5 MG TABLET PO PRN ×4 (00:07→16:54)
[2019-04-27] MEDS: ACETAMINOPHEN 325 MG TABLET (FP) PO PRN ×3 (05:04→20:56)
[2019-04-27] MEDS: INSULIN SLIDING SCALE (NOVOLOG) 1 VIAL SQ SCH ×2 (06:09→16:59)
[2019-04-27] MEDS ORDERED: cefTRIAXone SODIUM 1 GM VIAL ONE (10:13)
[2019-04-27] MEDS ORDERED: DEXTROSE 5%-WATER - 50 ML IVPB ONE (10:13)
[2019-04-27] MEDS: LOSARTAN POTASSIUM 50 MG TABLET (FP) PO SCH (10:22)
[2019-04-27] MEDS: MAG HYDROX/AL HYDROX/SIMETH 30 ML UNIT-DOSE CUP PO PRN (10:22)
[2019-04-27] MEDS: cloNIDine HCL 0.1 MG TABLET PO SCH (10:22)
[2019-04-27] MEDS: CEFTRIAXONE 1 GM in DEXTROSE 5%-WATER - 50 ML IVPB SCH (10:22)
[2019-04-27] MEDS: busPIRone HCL 5 MG TABLET PO SCH ×2 (10:22→21:00)
[2019-04-27] MEDS: amLODIPine BESYLATE 10 MG TABLET (FP) PO SCH (10:22)
--- NOTE | 2019-04-27 10:28 | PN ---
Progress Note, Physician Chief Complaint: Abdominal Pain Seroma History of Present Illness: NAD c/o heartburn anxiety a little better on buspirone Seen by Psych - Current Medication List Current Medications: Active Medications Acetaminophen (Tylenol -) 650 mg PO Q6H PRN PRN Reason: PAIN LEVEL 1-5 Last Admin: 04/27/19 05:04 Dose: 650 mg Al Hydroxide/Mg Hydroxide (Mylanta Oral Suspension -) 30 ml PO Q8H PRN PRN Reason: INDIGESTION Last Admin: 04/27/19 10:22 Dose: 30 ml Amlodipine Besylate (Norvasc -) 10 mg PO DAILY [facility] Last Admin: 04/27/19 10:22 Dose: 10 mg Buspirone HCl (Buspar -) 5 mg PO BID [facility] Last Admin: 04/27/19 10:22 Dose: 5 mg Clonidine (Catapres -) 0.1 mg PO DAILY [facility] Last Admin: 04/27/19 10:22 Dose: 0.1 mg Ceftriaxone Sodium 1 gm/ (Dextrose) 50 mls @ 100 mls/hr IVPB DAILY [facility] Last Admin: 04/27/19 10:22 Dose: 100 mls/hr Metronidazole (Flagyl 500mg Premixed Ivpb -) 500 mg in 100 mls @ 100 mls/hr IVPB Q8H-IV [facility] Last Admin: 04/27/19 10:22 Dose: 100 mls/hr Insulin Aspart (Novolog Vial Sliding Scale -) 1 vial SQ BIDAC [facility]; Protocol Last Admin: 04/27/19 06:09 Dose: Not Given Losartan Potassium (Cozaar -) 50 mg PO DAILY [facility] Last Admin: 04/27/19 10:22 Dose: 50 mg Melatonin (Melatonin) 5 mg PO HS [facility] Last Admin: 04/26/19 21:40 Dose: 5 mg Metoprolol Succinate (Toprol Xl -) 50 mg PO DAILY [facility] Last Admin: 04/27/19 10:22 Dose: 50 mg Ondansetron HCl (Zofran Injection) 4 mg IVPUSH Q8H PRN PRN Reason: NAUSEA Last Admin: 04/26/19 16:09 Dose: 4 mg Oxycodone HCl (Roxicodone -) 10 mg PO Q6H PRN PRN Reason: PAIN LEVEL 5-10 Last Admin: 04/27/19 06:04 Dose: 10 mg Zolpidem Tartrate (Ambien -) 5 mg PO HS PRN PRN Reason: INSOMNIA Last Admin: 04/26/19 21:40 Dose: 5 mg - Objective Vital Signs: Vital Signs Temperature 98.2 F 04/27/19 06:00 Pulse Rate 63 04/27/19 06:00 Respiratory Rate 20 04/27/19 06:00 Blood Pressure 153/76 04/27/19 06:00 O2 Sat by Pulse Oximetry (%) 99 04/26/19 21:00 Constitutional: Yes: Well Nourished, No Distress, Calm Cardiovascular: Yes: Regular Rate and Rhythm Respiratory: Yes: Regular Gastrointestinal: Yes: Normal Bowel Sounds, Tenderness (incisional) Genitourinary: Yes: Incontinence Musculoskeletal: Yes: Muscle Weakness Extremities: Yes: WNL Edema: No Peripheral Pulses WNL: Yes Wound/Incision: Yes: Dressing Dry and Intact Neurological: Yes: Alert, Oriented Psychiatric: Yes: Alert, Oriented Labs: CBC, BMP 04/26/19 06:20 04/26/19 06:20 INR, PTT INR 0.97 (0.83-1.09) 04/20/19 14:24 - ....Imaging X-ray: Report Reviewed (abdominal) Assessment/Plan (1) Abdominal pain Assessment/Plan: -Surgery on board -POD #5 Evacuation of infected Seroma and wound irrigation -pain control -wound culture NEG, repeat culture: Microbiology 04/22/19 14:06 Gram Stain - Final Abdomen Wound Culture - Preliminary 04/22/19 14:06 Gram Stain - Final Abdomen Wound Culture - Final NO GROWTH AFTER 48 HOURS INCUBATION -wound vac -Incentive spirometer -daily dressing changes -IV antibiotics Code(s): R10.9 - UNSPECIFIED ABDOMINAL PAIN Qualifiers: Abdominal location: generalized Qualified Code(s): R10.84 - Generalized abdominal pain (2) HTN (hypertension) Assessment/Plan: -Amlodipine, Losartan, Metoprolol -low Na diet Code(s): I10 - ESSENTIAL (PRIMARY) HYPERTENSION (3) CML (chronic myelocytic leukemia) Assessment/Plan: -palliative consult Code(s): C92.10 - CHRONIC MYELOID LEUK, BCR/ABL-POSITIVE, NOT ACHIEVE REMIS (4) Diabetes Assessment/Plan: -BGM ACHS -ISS -HgA1c 4.9% Code(s): E11.9 - TYPE 2 DIABETES MELLITUS WITHOUT COMPLICATIONS Qualifiers: Diabetes mellitus type: type 2 (5) UTI (urinary tract infection) Assessment/Plan: -ID on board -no leukocytosis -afebrile -Ceftriaxone -UC positive VRE/Kleb Pneumonaie Code(s): N39.0 - URINARY TRACT INFECTION, SITE NOT SPECIFIED Qualifiers: Urinary tract infection type: acute cystitis Hematuria presence: without hematuria Qualified Code(s): N30.00 - Acute cystitis without hematuria (6) Poor appetite Assessment/Plan: -Dietary consult -Calorie count Code(s): R63.0 - ANOREXIA Assessment/Plan see problem list dvt ppx begin d/c planning when switched to PO antibiotics
[2019-04-27] MEDS: LIDOCAINE 5% TOPICAL PATCH TP SCH (16:56)
--- NOTE | 2019-04-27 20:06 | EKG ---
Test Reason : Blood Pressure : / mmHG Vent. Rate : 054 BPM Atrial Rate : 054 BPM P-R Int : 144 ms QRS Dur : 086 ms QT Int : 436 ms P-R-T Axes : 045 071 053 degrees QTc Int : 413 ms SINUS BRADYCARDIA OTHERWISE NORMAL ECG WHEN COMPARED WITH ECG OF 20-APR-2019 21:09, PREVIOUS ECG HAS UNDETERMINED RHYTHM, NEEDS REVIEW Confirmed by NEIL GAN MD ([id number]) on 04/27/2019 8:06:31 PM Referred By: Akil LONDONO Confirmed By:NEIL GAN MD
[2019-04-27] MEDS: ZOLPIDEM TARTRATE 5 MG TABLET PO PRN (21:00)
[2019-04-27] MEDS: MELATONIN 5 MG TABLETS PO SCH (21:04)
[2019-04-27] MEDS ORDERED: LIDOCAINE PATCH REMOVAL MC SCH (22:00)
[2019-04-28] MEDS: oxyCODONE HCL 5 MG TABLET PO PRN ×4 (00:47→16:11)
[2019-04-28] MEDS: INSULIN SLIDING SCALE (NOVOLOG) 1 VIAL SQ SCH ×2 (06:06→19:31)
--- NOTE | 2019-04-28 07:56 | CON.GI ---
Consult Consult Specialty:: GI Referred by:: Arti Luu NP Reason for Consultation:: Poor Appetite and Nausea - History of Present Illness History of Present Illness: Patient is a 74 y/o female with past medical history of CML, MS, Fibromyalgia, HTN, COPD, Arthritis, s/p Hernia repair 02/21/[address] Caraballo. Patient is complaining of poor appetite for 3 months with 10-15lb weight loss. She has also been experiencing episodes of nausea with occasional vomiting that is exacerbated with certain foods. She has been complaining of sharp epigastric and lower abdominal pain. When asked to elaborate on pain she was unable to say if it radiates or what factors worsen the pain. She states having alternating episodes of diarrhea and constipation but denies rectal bleeding or melena. 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 Cardio/Vascular: Yes: HTN Pulmonary: Yes: Asthma, COPD Gastrointestinal: Yes: GERD (using walker at home ) Renal/: Yes: Renal Inusuff ...: No Psych: Yes: Depression Musculoskeletal: Yes: Osteoarthritis, Other (DDD) Rheumatology: Yes: Rheumatoid Arthritis Endocrine: Yes: Diabetes Mellitus, Hypothyroidism Additional Medical History: as in HPI, morbidly obese - Past Surgical History Past Surgical History: Yes: Hysterectomy, Joint Replacement, Cholecystectomy - Alcohol/Substance Use Hx Alcohol Use: No History of Substance Use: reports: Marijuana, None - Smoking History Smoking history: Former smoker Have you smoked in the past 12 months: No Aproximately how many cigarettes per day: 0 If you are a former smoker, when did you quit?: 30 years ago - Social History Usual Living Arrangement: Residential ADL: Support Services ([employer]) 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 Travel: No Home Medications - Allergies Allergies/Adverse Reactions: Allergies Allergy/AdvReac Type Severity Reaction Status Date / Time Sulfa (Sulfonamide Allergy Severe Hives Verified 02/09/19 09:41 Antibiotics) - Home Medications Home Medications: Ambulatory Orders Acetaminophen 650 mg PO PRN 04/20/19 Amlodipine Besylate 10 mg PO DAILY 04/20/19 Clonidine HCl 0.1 mg PO DAILY 04/20/19 Gabapentin 900 mg PO TID 04/20/19 Humalog Kwikpen U-100 12 unit SQ DAILY 04/20/19 Losartan Potassium 50 mg PO DAILY 04/20/19 Melatonin 5 mg PO HS 04/20/19 Metoclopramide HCl [Reglan] 10 mg PO DAILY 04/20/19 Metoprolol Succinate [Toprol Xl] 50 mg PO DAILY 04/20/19 Oxycodone HCl 10 mg PO DAILY 04/20/19 Oxycodone HCl/Acetaminophen [Percocet 5-325 mg Tablet] 1 tab PO Q6H 04/20/19 predniSONE [Deltasone -] 30 mg PO DAILY 04/20/19 Review of Systems - Review of Systems Constitutional: reports: Loss of Appetite, Unintentional Wgt. Loss, Weakness Eyes: reports: No Symptoms HENT: reports: No Symptoms Neck: reports: No Symptoms Cardiovascular: reports: No Symptoms Respiratory: reports: No Symptoms Gastrointestinal: reports: Abdominal Pain, Diarrhea, Dysphagia, Nausea, Vomiting Genitourinary: reports: No Symptoms Breasts: reports: No Symptoms Reported Musculoskeletal: reports: No Symptoms Integumentary: reports: No Symptoms Neurological: reports: No Symptoms Endocrine: reports: No Symptoms Hematology/Lymphatic: reports: No Symptoms Psychiatric: reports: No Symptoms Physical Exam-GI Vital Signs: Vital Signs Temperature 98.7 F 04/28/19 06:00 Pulse Rate 61 04/28/19 06:00 Respiratory Rate 20 04/28/19 06:00 Blood Pressure 152/69 04/28/19 06:00 O2 Sat by Pulse Oximetry (%) 99 04/27/19 21:00 Constitutional: Yes: No Distress, Calm Eyes: Yes: Conjunctiva Clear HENT: Yes: Atraumatic Cardiovascular: Yes: Regular Rate and Rhythm Respiratory: Yes: Regular, CTA Bilaterally Gastrointestinal Inspection: Yes: WNL, Other (wound vac to surgical wound). No : Ascites, Distention, Hernia, Scars ...Auscultate: Yes: Normoactive Bowel Sounds. No: Hyperactive Bowel Sounds, Hypoactive Bowel Sounds, No Bowel Sounds, Other ...Palpate: Yes: Soft, Tenderness (diffuse), Tenderness, Epigastium. No: Firm/ Rigid, Guarding, Hepatomegaly, Mass, Pulsatile Mass, Splenomegaly, Tenderness, Rebound, Other ...Percussion: Yes: Tympanitic. No: Dullness, Fluid Wave, Other Labs: CBC, BMP 04/26/19 06:20 04/26/19 06:20 INR, PTT INR 0.97 (0.83-1.09) 04/20/19 14:24 Problem List - Problems (1) Poor appetite Assessment/Plan: >Upper GI series > Code(s): R63.0 - ANOREXIA
--- NOTE | 2019-04-28 09:44 | PN ---
Progress Note (short form) - Note Progress Note: POD 6, s/p infected post-op abdominal wound seroma, r/o recurrent ventral hernia Pt seen and examined. Reports she is doing "okay". Passign flatus, had two soft bms this am. Has some diffuse abdo pain. Has been oob to comode. Denies cp/sob, n/v/d. Vital Signs Temp 98.7 F 04/28/19 06:00 Pulse 61 04/28/19 06:00 Resp 20 04/28/19 06:00 BP 152/69 04/28/19 06:00 Pulse Ox 99 04/27/19 21:00 Intake & Output 04/27/19 04/27/19 04/28/19 11:59 23:59 11:59 Intake Total 300 615 100 Balance 300 615 100 Intake: IV 225 saline lock 225 IVPB 100 150 100 Oral 200 240 Other: Voiding Method Bedpan Bedpan Bedpan # Unmeasured Voids Void 3 Bowel Movement Yes Yes # Bowel Movements 2 CBC, BMP 04/26/19 06:20 04/26/19 06:20 Gen: awake, alert, nad Resp: Unlabored on RA Abdo: soft, nt/nd, wound vac in place and functioning A/P: 74 y/o F w/ PMHx CML, MS, fibromyalgia, HTN, COPD, arthritis, CVA, s/p Hernia repair (02/21/2019 w/ Dr. Caraballo) admitted 04/20 after c/o abdominal pain, found to have infected seroma (prior ventral abdominal hernia repair with PHASIX mesh and partial omentectomy on 02/21/[address] Caraballo), now POD 6, s/p infected post-op abdominal wound seroma, r/o recurrent ventral hernia. Requesting vac be removed. D/w attending, Dr Caraballo okay with pt go with vac or damp to dry as preferred by pt. -Cleared for d/c from surgery standpoint -Pt should f/u in the office on 05/02/19 d/w attending Dr Caraballo
--- NOTE | 2019-04-28 09:46 | PN ---
Progress Note, Physician Chief Complaint: infected wound seroma History of Present Illness: Continues to have diffuse abdominal and generalized pain - Current Medication List Current Medications: Active Medications Acetaminophen (Tylenol -) 650 mg PO Q6H PRN PRN Reason: PAIN LEVEL 1-5 Last Admin: 04/27/19 20:56 Dose: 650 mg Al Hydroxide/Mg Hydroxide (Mylanta Oral Suspension -) 30 ml PO Q8H PRN PRN Reason: INDIGESTION Last Admin: 04/27/19 10:22 Dose: 30 ml Amlodipine Besylate (Norvasc -) 10 mg PO DAILY [facility] Last Admin: 04/27/19 10:22 Dose: 10 mg Buspirone HCl (Buspar -) 5 mg PO BID [facility] Last Admin: 04/27/19 21:00 Dose: 5 mg Clonidine (Catapres -) 0.1 mg PO DAILY [facility] Last Admin: 04/27/19 10:22 Dose: 0.1 mg Ceftriaxone Sodium 1 gm/ (Dextrose) 50 mls @ 100 mls/hr IVPB DAILY [facility] Last Admin: 04/27/19 10:22 Dose: 100 mls/hr Metronidazole (Flagyl 500mg Premixed Ivpb -) 500 mg in 100 mls @ 100 mls/hr IVPB Q8H-IV [facility] Last Admin: 04/28/19 01:04 Dose: 100 mls/hr Insulin Aspart (Novolog Vial Sliding Scale -) 1 vial SQ BIDAC [facility]; Protocol Last Admin: 04/28/19 06:06 Dose: Not Given Lidocaine (Lidoderm Patch -) 1 patch TP DAILY [facility] Last Admin: 04/27/19 16:56 Dose: Not Given Losartan Potassium (Cozaar -) 50 mg PO DAILY [facility] Last Admin: 04/27/19 10:22 Dose: 50 mg Melatonin (Melatonin) 5 mg PO HS [facility] Last Admin: 04/27/19 21:04 Dose: Not Given Metoprolol Succinate (Toprol Xl -) 50 mg PO DAILY [facility] Last Admin: 04/27/19 10:22 Dose: 50 mg Miscellaneous (Lidoderm Patch Removal) 1 each MC DAILY@2200 [facility] Last Admin: 04/27/19 21:02 Dose: Not Given Non-Formulary Medication (Patient's Own Med) 1 each PO Mo@1000 [facility] Last Admin: 04/27/19 13:08 Dose: 1 each Ondansetron HCl (Zofran Injection) 4 mg IVPUSH Q8H PRN PRN Reason: NAUSEA Last Admin: 04/26/19 16:09 Dose: 4 mg Oxycodone HCl (Roxicodone -) 10 mg PO Q4H PRN PRN Reason: PAIN LEVEL 5-10 Last Admin: 04/28/19 06:50 Dose: 10 mg Zolpidem Tartrate (Ambien -) 5 mg PO HS PRN PRN Reason: INSOMNIA Last Admin: 04/27/19 21:00 Dose: 5 mg - Objective Vital Signs: Vital Signs Temperature 98.7 F 04/28/19 06:00 Pulse Rate 61 04/28/19 06:00 Respiratory Rate 20 04/28/19 06:00 Blood Pressure 152/69 04/28/19 06:00 O2 Sat by Pulse Oximetry (%) 99 04/27/19 21:00 Gastrointestinal: Yes: Soft, Other (Wound VAC taken down. Wound clean with minimal granulation tissue. Seroma cavity clean with serous discharge.) Labs: CBC, BMP 04/26/19 06:20 04/26/19 06:20 INR, PTT INR 0.97 (0.83-1.09) 04/20/19 14:24 Problem List - Problems (1) Infected seroma, postoperative Assessment/Plan: May be discharged to [place] with or w/o NPT (patient preference) Daily wet to dry dressing changes if no NPT f/u at office on 05/02/19 Problems reviewed: Yes Code(s): [id number] -
--- NOTE | 2019-04-28 11:02 | PN ---
Progress Note, Physician Chief Complaint: Abdominal Pain Seroma History of Present Illness: Previous notes and events reviewed awake and alert NAD POD #6 Evacuation of infected Seroma and wound irrigation complain of pain to surgical site wound vac discontinued - Current Medication List Current Medications: Active Medications Acetaminophen (Tylenol -) 650 mg PO Q6H PRN PRN Reason: PAIN LEVEL 1-5 Last Admin: 04/27/19 20:56 Dose: 650 mg Al Hydroxide/Mg Hydroxide (Mylanta Oral Suspension -) 30 ml PO Q8H PRN PRN Reason: INDIGESTION Last Admin: 04/27/19 10:22 Dose: 30 ml Amlodipine Besylate (Norvasc -) 10 mg PO DAILY [facility] Last Admin: 04/27/19 10:22 Dose: 10 mg Buspirone HCl (Buspar -) 5 mg PO BID [facility] Last Admin: 04/27/19 21:00 Dose: 5 mg Clonidine (Catapres -) 0.1 mg PO DAILY [facility] Last Admin: 04/27/19 10:22 Dose: 0.1 mg Ceftriaxone Sodium 1 gm/ (Dextrose) 50 mls @ 100 mls/hr IVPB DAILY [facility] Last Admin: 04/27/19 10:22 Dose: 100 mls/hr Metronidazole (Flagyl 500mg Premixed Ivpb -) 500 mg in 100 mls @ 100 mls/hr IVPB Q8H-IV [facility] Last Admin: 04/28/19 01:04 Dose: 100 mls/hr Insulin Aspart (Novolog Vial Sliding Scale -) 1 vial SQ BIDAC [facility]; Protocol Last Admin: 04/28/19 06:06 Dose: Not Given Lidocaine (Lidoderm Patch -) 1 patch TP DAILY [facility] Last Admin: 04/27/19 16:56 Dose: Not Given Losartan Potassium (Cozaar -) 50 mg PO DAILY [facility] Last Admin: 04/27/19 10:22 Dose: 50 mg Melatonin (Melatonin) 5 mg PO HS [facility] Last Admin: 04/27/19 21:04 Dose: Not Given Metoprolol Succinate (Toprol Xl -) 50 mg PO DAILY [facility] Last Admin: 04/27/19 10:22 Dose: 50 mg Miscellaneous (Lidoderm Patch Removal) 1 each MC DAILY@2200 [facility] Last Admin: 04/27/19 21:02 Dose: Not Given Non-Formulary Medication (Patient's Own Med) 1 each PO Mo@1000 [facility] Last Admin: 04/27/19 13:08 Dose: 1 each Ondansetron HCl (Zofran Injection) 4 mg IVPUSH Q8H PRN PRN Reason: NAUSEA Last Admin: 04/26/19 16:09 Dose: 4 mg Oxycodone HCl (Roxicodone -) 10 mg PO Q4H PRN PRN Reason: PAIN LEVEL 5-10 Last Admin: 04/28/19 06:50 Dose: 10 mg Zolpidem Tartrate (Ambien -) 5 mg PO HS PRN PRN Reason: INSOMNIA Last Admin: 04/27/19 21:00 Dose: 5 mg - Objective Vital Signs: Vital Signs Temperature 98.7 F 04/28/19 06:00 Pulse Rate 61 04/28/19 06:00 Respiratory Rate 20 04/28/19 06:00 Blood Pressure 152/69 04/28/19 06:00 O2 Sat by Pulse Oximetry (%) 99 04/27/19 21:00 Constitutional: Yes: No Distress, Calm Eyes: Yes: Conjunctiva Clear HENT: Yes: Atraumatic Cardiovascular: Yes: Regular Rate and Rhythm Respiratory: Yes: Regular, CTA Bilaterally Gastrointestinal: Yes: Normal Bowel Sounds, Soft, Tenderness (surgical site) Musculoskeletal: Yes: Muscle Weakness Extremities: Yes: WNL Edema: No Neurological: Yes: Alert, Oriented Psychiatric: Yes: Alert, Oriented Labs: CBC, BMP 04/26/19 06:20 04/26/19 06:20 INR, PTT INR 0.97 (0.83-1.09) 04/20/19 14:24 Problem List - Problems (1) Abdominal pain Assessment/Plan: -Surgery on board -POD #6 Evacuation of infected Seroma and wound irrigation -pain control -wound culture NEG, repeat culture pending -wound vac removed -wet to dry dressing -Incentive spirometer -daily dressing changes -IV antibiotics Code(s): R10.9 - UNSPECIFIED ABDOMINAL PAIN Qualifiers: Abdominal location: generalized Qualified Code(s): R10.84 - Generalized abdominal pain (2) HTN (hypertension) Assessment/Plan: -Amlodipine, Losartan, Metoprolol -low Na diet Code(s): I10 - ESSENTIAL (PRIMARY) HYPERTENSION (3) CML (chronic myelocytic leukemia) Assessment/Plan: -palliative consult Code(s): C92.10 - CHRONIC MYELOID LEUK, BCR/ABL-POSITIVE, NOT ACHIEVE REMIS (4) Diabetes Assessment/Plan: -BGM ACHS -ISS -HgA1c 4.9% Code(s): E11.9 - TYPE 2 DIABETES MELLITUS WITHOUT COMPLICATIONS Qualifiers: Diabetes mellitus type: type 2 (5) UTI (urinary tract infection) Assessment/Plan: -ID on board -no leukocytosis -afebrile -Ceftriaxone -UC positive VRE/Kleb Pneumonaie Code(s): N39.0 - URINARY TRACT INFECTION, SITE NOT SPECIFIED Qualifiers: Urinary tract infection type: acute cystitis Hematuria presence: without hematuria Qualified Code(s): N30.00 - Acute cystitis without hematuria (6) Poor appetite Assessment/Plan: -Dietary consult -Calorie count -GI on board Code(s): R63.0 - ANOREXIA
[2019-04-28] MEDS ORDERED: cefTRIAXone SODIUM 1 GM VIAL ONE (11:50)
[2019-04-28] MEDS ORDERED: DEXTROSE 5%-WATER - 50 ML IVPB ONE (11:51)
[2019-04-28] MEDS: amLODIPine BESYLATE 10 MG TABLET (FP) PO SCH (12:00)
[2019-04-28] MEDS: busPIRone HCL 5 MG TABLET PO SCH (12:00)
[2019-04-28] MEDS: LOSARTAN POTASSIUM 50 MG TABLET (FP) PO SCH (12:00)
[2019-04-28] MEDS: cloNIDine HCL 0.1 MG TABLET PO SCH (12:00)
[2019-04-28] MEDS: CEFTRIAXONE 1 GM in DEXTROSE 5%-WATER - 50 ML IVPB SCH (12:01)
[2019-04-28] MEDS: LIDOCAINE 5% TOPICAL PATCH TP SCH (12:01)
--- NOTE | 2019-04-28 12:06 | PN ---
Progress Note (short form) - Note Progress Note: feels well d/w dr pandya wound is clean no vomiting she feel improved and wants to go to the [place] Vital Signs Period Temp Pulse Resp BP Sys/Teague Pulse Ox Last 24 Hr 97.9 F-98.7 F 54-61 20-20 136-152/52-69 99 cor-rrr lungs clear abd soft, wound is clean ext no edema CBC, BMP 04/26/19 06:20 04/26/19 06:20 Microbiology 04/22/19 14:06 Abdomen Gram Stain - Final 04/22/19 14:06 Abdomen Wound Culture - Final Staphylococcus Coagulase Neg 04/22/19 14:06 Abdomen Gram Stain - Final 04/22/19 14:06 Abdomen Wound Culture - Final NO GROWTH AFTER 48 HOURS INCUBATION 04/20/19 14:50 Urine - Urine Clean Catch Urine Culture - Final Vr Ec Faecalis Klebsiella Pneumoniae a/p s/p drainage of seroma- d/w dr apndya wound is clean he will see the patient on Sunday broth culture represent skin contaminant d/c iv antibiotics augmentin for 7 days wound care per dr pandya contact isolation for VRE sulfa allergy noted please call back if needed Problem List - Problems (1) Infected seroma, postoperative Code(s): [id number] - (2) H/O hernia repair Code(s): Z98.890 - OTHER SPECIFIED POSTPROCEDURAL STATES; Z87.19 - PERSONAL HISTORY OF OTHER DISEASES OF THE DIGESTIVE SYSTEM (3) VRE (vancomycin resistant enterococcus) culture positive Code(s): Z22.39 - CARRIER OF OTHER SPECIFIED BACTERIAL DISEASES (4) Allergy to sulfa drugs Code(s): Z88.2 - ALLERGY STATUS TO SULFONAMIDES STATUS
[2019-04-28] MEDS: MAG HYDROX/AL HYDROX/SIMETH 30 ML UNIT-DOSE CUP PO PRN (14:05)
--- NOTE | 2019-04-28 14:38 | DS ---
Physical Examination Vital Signs: Vital Signs Temperature 98.7 F 04/28/19 06:00 Pulse Rate 61 04/28/19 06:00 Respiratory Rate 20 04/28/19 06:00 Blood Pressure 152/69 04/28/19 06:00 O2 Sat by Pulse Oximetry (%) 99 04/27/19 21:00 Constitutional: Yes: Calm Cardiovascular: Yes: Regular Rate and Rhythm, S1, S2 Respiratory: Yes: CTA Bilaterally Gastrointestinal: Yes: Normal Bowel Sounds, Soft Neurological: Yes: Alert, Oriented Labs: CBC, BMP 04/26/19 06:20 04/26/19 06:20 Discharge Summary Problems reviewed: Yes Reason For Visit: ABDOMINAL PAIN Current Active Problems Abdominal pain (Acute) Allergy to sulfa drugs (Acute) H/O hernia repair (Acute) HTN (hypertension) (Acute) Infected seroma, postoperative (Acute) Poor appetite (Acute) VRE (vancomycin resistant enterococcus) culture positive (Acute) Ventral hernia with bowel obstruction (Acute) Hospital Course: HISTORY OF PRESENT ILLNESS: 74 year old woman with CML, MS, fibromyalgia, HTN, COPD, arthritis, CVA, s/p Hernia repair (02/21/2019 w/ Dr. Caraballo) Presented complaining of abdominal pain for a few days. Recent ventral abdominal hernia repair with PHASIX mesh and partial omentectomy on 02/21/[address] of abdomen and pelvis showed periumbilical hernia with high density material that was suggestive of small bowel incarceration versus infection. Dr. Caraballo was called from the emergency room and thought it might be infected.Lactic acid was noted to be normal ER course was notable for: (1)CT of abdomen and pelvis (2)Ceftriaxone (3)Metronidazole patient had infected abdominal seroma which was drained to folow up with the surgeon vomitting has resolved Condition: Stable - Instructions Diet, Activity, Other Instructions: augmentin po for 7 days wound care daily wet to dry dressing Referrals: Bran De Leon MD [Primary Care Provider] - Ashkan Caraballo MD [Staff Physician] - (go to dr CARABALLO office on 05/02/19 for follow up visit) Disposition: CUSTODIAL FACILITY - Home Medications Comprehensive Discharge Medication List: Ambulatory Orders Acetaminophen 650 mg PO PRN 04/20/19 Amlodipine Besylate 10 mg PO DAILY 04/20/19 Clonidine HCl 0.1 mg PO DAILY 04/20/19 Gabapentin 900 mg PO TID 04/20/19 Losartan Potassium 50 mg PO DAILY 04/20/19 Melatonin 5 mg PO HS 04/20/19 Metoprolol Succinate [Toprol Xl] 50 mg PO DAILY 04/20/19 Amox-Tr/K Cl [Augmentin 875-125mg Tablet -] 1 tab PO BID@0800,1730 #14 tablet
[2019-04-28 15:10] VITALS: BP 140/60; PULSE 65; TEMP 98.1
[2019-04-28] MEDS ORDERED: AMOX TR/POT CLAV 875MG/125MG TABLETS (FP) PO SCH (17:30)
== END 2019-04-28 17:25 | DRG 857 ==
LOC: JER 12:47 → JERBED 18:32 → J7W 23:42
PROVIDERS: ADMIT Internal Medicine; ATTEND Family Medicine
PROC: 3E10X8Z Irrigation of Skin and Mucous Membranes using Irrigating Substance (ICD-10-PCS; 2019-04-22)
PROC: 0W9F0ZZ Drainage of Abdominal Wall, Open Approach (ICD-10-PCS; principal; 2019-04-22 16:00)
DX: T81.49XA Infection following a procedure, other surgical site, initial encounter (principal); K91.872 Postprocedural seroma of a digestive system organ or structure following a digestive system procedure; C92.10 Chronic myeloid leukemia, BCR/ABL-positive, not having achieved remission; N39.0 Urinary tract infection, site not specified; G35 Multiple sclerosis; B96.1 Klebsiella pneumoniae [K. pneumoniae] as the cause of diseases classified elsewhere; I10 Essential (primary) hypertension; J44.9 Chronic obstructive pulmonary disease, unspecified; M79.7 Fibromyalgia; F41.9 Anxiety disorder, unspecified; E11.9 Type 2 diabetes mellitus without complications; R76.8 Other specified abnormal immunological findings in serum; K42.9 Umbilical hernia without obstruction or gangrene; R63.0 Anorexia; E03.9 Hypothyroidism, unspecified; K21.9 Gastro-esophageal reflux disease without esophagitis; F32.9 Major depressive disorder, single episode, unspecified; M06.9 Rheumatoid arthritis, unspecified; E66.8 Other obesity; Z68.30 Body mass index [BMI] 30.0-30.9, adult; Z87.891 Personal history of nicotine dependence; Y83.8 Other surgical procedures as the cause of abnormal reaction of the patient, or of later complication, without mention of misadventure at the time of the procedure; Z86.73 Personal history of transient ischemic attack (TIA), and cerebral infarction without residual deficits; Z22.39 Carrier of other specified bacterial diseases; Z88.2 Allergy status to sulfonamides
CPT/HCPCS: 36415; 71045-TC-FY; 74018-TC-FY; 74176-TC; 76705-TC; 80053; 81003; 82550; 82962; 83036; 83540; 83550; 83605; 83690; 84443; 84484; 85025; 85027; 85610; 85651; 85730; 86140; 86850; 86900; 86901; 87070; 87077; 87086; 87186; 87205; 93005; 93010; 94010; 94760; 97116-GP; 97162-GP; 99284-25; J0735; J7030

== ENCOUNTER 2019-06-24 18:27 | Inpatient (IN) | payer OTHER ==
--- NOTE | 2019-06-24 20:25 | PDOC ---
*Physical Exam - Vital Signs Last Vital Signs Temp Pulse Resp BP Pulse Ox 97.9 F 60 18 183/78 H 99 06/24/19 18:35 06/24/19 18:35 06/24/19 18:35 06/24/19 18:35 06/24/19 18:35 ED Treatment Course - LABORATORY CBC & Chemistry Diagram: 06/24/19 22:45 06/24/19 22:45 Medical Decision Making - Medical Decision Making 06/24/19 20:25 Patient seen by the advanced practice provider under my direct supervision. Ancillary testing reviewed as necessary. I agree with plan as outlined by the advanced practice provider. Discharge - Discharge Information Problems reviewed: Yes Clinical Impression/Diagnosis: FTT (failure to thrive) in adult - Follow up/Referral Referrals: Bran De Leon MD [Primary Care Provider] - - Patient Discharge Instructions - Post Discharge Activity
[2019-06-24 22:53] LABS: BASO % 0.8 % (0-2.0); EOS % 2.1 % (0-4.5); HEMATOCRIT 31.7 % (32.4-45.2); HEMOGLOBIN 10.3 GM/dL (10.7-15.3); LYMPH % 38.9 % (8-40); MCH 27.7 pg (25.7-33.7); MCHC 32.5 g/dl (32.0-36.0); MEAN CELL VOLUME 85.2 fl (80-96); MEAN PLT VOLUME 7.3 fl (7.5-11.1); MONO % 13.4 % (3.8-10.2); NEUT % 44.8 % (42.8-82.8); PLATELET COUNT 211 K/MM3 (134-434); RBC 3.72 M/mm3 (3.60-5.2); RDW 14.7 % (11.6-15.6)
[2019-06-24 23:31] LABS: ALBUMIN 3.5 g/dl (3.4-5.0); BILIRUBIN,TOTAL 0.2 mg/dL (0.2-1); BLOOD UREA NITROGEN 11.8 mg/dL (7-18); CREATININE 0.9 mg/dL (0.55-1.3); POTASSIUM 4.2 mmol/L (3.5-5.1); TOT PROT 6.8 g/dl (6.4-8.2)
--- NOTE | 2019-06-24 23:51 | PDOC ---
History of Present Illness - General Chief Complaint: Pain Stated Complaint: UNABLE TO AMBULATE Time Seen by Provider: 06/24/19 20:12 History Source: Patient, Old Records - History of Present Illness Initial Comments: 06/24/19 23:46 HISTORY OF PRESENT ILLNESS: This is a 74-year-old woman past medical history of CML, COPD, constipation, cervical stenosis, chronic pain syndrome, renal insufficiency, CVA, osteoarthritis, fibromyalgia, multiple sclerosis who presents to the emergency department with complaints of "I cannot take care of myself at home because I cannot walk." Patient states she was seen and evaluated by her primary doctor who recommended she come to the emergency department for admission and possible SNF placement. Patient did not provide any paperwork from her physician. Patient denies fevers, chills, headaches, blurry vision, dizziness, chest pain, shortness of breath. Patient does endorse pain throughout her entire body rated "15/10." Patient is a poor historian, demanding throughout exam and is unreliable. No recent travel or sick contacts. PAST MEDICAL HISTORY: See HPI SURGICAL HISTORY: Denies ALLERGIES: Sulfa drugs REVIEW OF SYSTEMS General/Constitutional: Denies fever or chills. Denies weight change. HEENT: Denies change in vision. Denies ear pain or discharge. Denies sore throat. Cardiovascular: Denies chest pain or shortness of breath. Respiratory: Denies cough, wheezing, or hemoptysis. Gastrointestinal: Denies nausea, vomiting, diarrhea or constipation. Denies rectal bleeding. Genitourinary: Denies dysuria, frequency, or change in urination. Musculoskeletal: See HPI Skin and breasts: Denies rash or easy bruising. Neurologic: See HPI Psychiatric: Denies depression or anxiety. Endocrine: Denies increased thirst. Denies abnormal weight change. Hematologic/Lymphatic: Denies anemia, easy bleeding, or history of blood clots. Allergic/Immunologic: Denies hives or skin allergy. Denies latex allergy. PHYSICAL EXAM General Appearance: Well-appearing, appropriately dressed. No apparent distress , no intoxication. HEENT: EOMI, PERRLA, normal ENT inspection, normal voice, TMs normal, pharynx normal. No conjunctival pallor. No photophobia, scleral icterus. Neck: Supple. Trachea midline. No tenderness, rigidity, carotid bruit, stridor , lymphadenopathy, or thyromegaly. Respiratory/Chest: Lungs CTAB. No shortness of breath, chest tenderness, respiratory distress, accessory muscle use. No crackles, rales, rhonchi, stridor , wheezing, dullness Cardiovascular: RRR. S1, S2. No JVD, murmur, bradycardia, tachycardia. Vascular Pulses: Dorsalis-Pedis (R): 2+, Dorsalis-Pedis (L): 2+ Gastrointestinal/Abdominal: Normal bowel sounds. Abdomen soft, non-distended. No tenderness or rebound tenderness. No organomegaly, pulsatile mass, guarding, hernia, hepatomegaly, splenomegaly. Lymphatic: No adenopathy, tenderness. Musculoskeletal/Extremities: Normal inspection. FROM of all extremities, normal capillary refill. Pelvis Stable. No CVA tenderness. No tenderness to extremities, pedal edema, swelling, erythema or deformity. Integumentary: Appropriate color, dry, warm. No cyanosis, erythema, jaundice or rash Neurologic: shredding specialist II-XII intact. Fully oriented, alert. Appropriate mood/affect. Motor strength 3/5. No appreciable EOM palsy, facial droop or sensory deficit. Past History - Past Medical History Allergies/Adverse Reactions: Allergies Allergy/AdvReac Type Severity Reaction Status Date / Time Sulfa (Sulfonamide Allergy Severe Hives Verified 06/24/19 18:34 Antibiotics) Home Medications: Ambulatory Orders Acetaminophen 650 mg PO PRN 04/20/19 Amlodipine Besylate 10 mg PO DAILY 04/20/19 Clonidine HCl 0.1 mg PO DAILY 04/20/19 Losartan Potassium 50 mg PO DAILY 04/20/19 Melatonin 5 mg PO HS 04/20/19 Metoprolol Succinate [Toprol Xl] 50 mg PO DAILY 04/20/19 Buspirone HCl [Buspar -] 5 mg PO BID #30 tablet 04/28/19 Clonazepam 0.5 mg PO BID PRN 06/20/19 Gabapentin [Neurontin -] 400 mg PO BID #60 capsule 06/20/19 Hydrocodone/Acetaminophen [[place] 10-325 Tablet] 1 tab PO QID #120 tablet MDD 4 06/20/19 Imatinib Mesylate [Gleevec (Restricted To Oncology) -] 400 mg PO DAILY 06/20/19 Interferon Beta-1A [Avonex Pen] 0.5 ml IM DAILY 06/20/19 Multivit-Min/Iron/Folic/Lutein [Centrum Silver Women Tablet] 1 each PO DAILY 03/30 Omeprazole 20 mg PO DAILY 06/20/19 Anemia: No Asthma: Yes Cancer: Yes (leukemia, history of lung [id number]) Cardiac Disorders: No CVA: Yes COPD: Yes CHF: No Dementia: No Diabetes: Yes (NIDDM) GI Disorders: Yes Disorders: No HTN: Yes Hypercholesterolemia: No Liver Disease: Yes (hep c treated) Seizures: Yes Thyroid Disease: Yes (hypo) - Surgical History Abdominal Surgery: Yes (unbilical/ventral hernia) Appendectomy: Yes Cardiac Surgery: No Cholecystectomy: Yes Lung Surgery: Yes (2012 RIGHT lobectomy for lung cancer,NO CHEMO OR RT) Neurologic Surgery: No Orthopedic Surgery: Yes (left knee/ right hip) - Immunization History Immunization Up to Date: Yes - Psycho Social/Smoking Cessation Hx Smoking Status: No Smoking History: Smoker current status UNK Have you smoked in the past 12 months: No Number of Cigarettes Smoked Daily: 0 If you are a former smoker, when did you quit?: 30 years ago Information on smoking cessation initiated: No 'Breaking Loose' booklet given: 10/24/18 Hx Alcohol Use: No Drug/Substance Use Hx: No Substance Use Type: None Hx Substance Use Treatment: No *Physical Exam - Vital Signs Last Vital Signs Temp Pulse Resp BP Pulse Ox 97.9 F 60 18 183/78 H 99 06/24/19 18:35 06/24/19 18:35 06/24/19 18:35 06/24/19 18:35 06/24/19 18:35 ED Treatment Course - LABORATORY CBC & Chemistry Diagram: 06/24/19 22:45 06/24/19 22:45 - ADDITIONAL ORDERS Additional order review: Laboratory Results 06/24/19 22:45 Sodium 143 Potassium 4.2 Chloride 110 H Carbon Dioxide 27 Anion Gap 6 L BUN 11.8 Creatinine 0.9 Est GFR (CKD-EPI)AfAm 73.00 Est GFR (CKD-EPI)NonAf 62.99 Random Glucose 78 Calcium 8.0 L Total Bilirubin 0.2 AST 17 ALT 13 Alkaline Phosphatase 99 Total Protein 6.8 Albumin 3.5 06/24/19 22:45 RBC 3.72 MCV 85.2 MCHC 32.5 RDW 14.7 D MPV 7.3 L Neutrophils % 44.8 Lymphocytes % 38.9 Monocytes % 13.4 H Eosinophils % 2.1 Basophils % 0.8 - RADIOLOGY Radiology Studies Ordered: Category Date Time Status HEAD CT WITHOUT CONTRAST [CT] Stat CT Scan 06/24/19 21:01 Taken CHEST X-RAY PORTABLE* [RAD] Stat Radiology 06/24/19 21:01 Taken - Medications Given in the ED: ED Medications Discontinued Medications Generic Name Dose Route Start Last Admin Trade Name Freq PRN Reason Stop Dose Admin Oxycodone/Acetaminophen 2 combo 06/24/19 20:49 06/24/19 20:57 Percocet 5/325 - PO 06/24/19 20:50 2 combo ONCE ONE Administration Medical Decision Making - Medical Decision Making 06/25/19 00:47 A/P: 74-year-old woman for evaluation of generalized weakness Differential diagnosis includes but is not limited to-MS flare, ACS, failure to thrive, electrolyte abnormalities, metastatic disease, occult infection Basic labs Urinalysis, urine culture Chest x-ray EKG Noncontrast head CT EKG sinus bradycardia with a rate of 58. Normal intervals present. QTc 439 ms. Normal axis. New T wave inversion present in V3 when compared to EKG performed 04/26/2019. Cardiac profile is been added to laboratory testing patient to be admitted for ACS when cardiac profile is resolved 06/25/19 01:15 Laboratory Tests 06/24/19 06/24/19 06/25/19 22:45 22:45 00:30 WBC 6.0 RBC 3.72 Hgb 10.3 L Hct 31.7 L D MCV 85.2 MCH 27.7 MCHC 32.5 RDW 14.7 D Plt Count 211 MPV 7.3 L Absolute Neuts (auto) 2.7 Neutrophils % 44.8 Lymphocytes % 38.9 Monocytes % 13.4 H Eosinophils % 2.1 Basophils % 0.8 Nucleated RBC % 0 Sodium 143 Potassium 4.2 Chloride 110 H Carbon Dioxide 27 Anion Gap 6 L BUN 11.8 Creatinine 0.9 Est GFR (CKD-EPI)AfAm 73.00 Est GFR (CKD-EPI)NonAf 62.99 Random Glucose 78 Calcium 8.0 L Total Bilirubin 0.2 AST 17 ALT 13 Alkaline Phosphatase 99 Creatine Kinase 112 Troponin I < 0.02 Total Protein 6.8 Albumin 3.5 06/25/19 01:19 Chest x-ray as read by me: Enlarged cardiac silhouette. Prominent rigoberto. Lung castle clear without infiltrate or consolidation. Angles are sharp. No significant change from study performed 04/20/2019. CT of the head as read by imaging on-call: No evidence of acute pathology. We will contact the hospitalist service to admit for FTT. 06/25/19 02:00 Case has been discussed with nurse practitioner John of the hospitalist service who accepts patient to [facility] under Dr. Black. Discharge - Discharge Information Problems reviewed: Yes Clinical Impression/Diagnosis: FTT (failure to thrive) in adult Condition: Fair - Admission Yes - Follow up/Referral Referrals: Bran De Leon MD [Primary Care Provider] - - Patient Discharge Instructions - Post Discharge Activity
[2019-06-25] MEDS ORDERED: ZOLPIDEM TARTRATE 5 MG TABLET PO ONE (02:39)
--- NOTE | 2019-06-25 03:04 | HP ---
Admitting History and Physical - Primary Care Physician PCP: Dr. De La Rosa - Admission Chief Complaint: weakness, diffculty with ambulation History of Present Illness: 74 year old female with PMHx of CML, COPD, constipation, cervical stenosis, chronic pain syndrome, renal insufficiency, CVA, osteoarthritis, fibromyalgia, multiple sclerosis who arrived to the ED with c/o of "i have diffuculty walking ". Patient mentioned seen by Dr. De Leon at his him who recommended to go to ER for evaluation and possible SNF placement. Patient denies fevers, chills, headaches, blurry vision, dizziness, chest pain, shortness of breath. Patient does endorse pain throughout her entire body. Patient is a poor historian. 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: CVA, 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 Cardiovascular: Yes: HTN Pulmonary: Yes: Asthma, COPD Gastrointestinal: Yes: GERD (using walker at home ) Renal/: Yes: Renal Inusuff Heme/Onc: Yes: Other (CML, (leukemia, history of lung [id number])) Psych: Yes: Depression Musculoskeletal: Yes: Osteoarthritis, Other (DDD) Rheumatology: Yes: Rheumatoid Arthritis Endocrine: Yes: Diabetes Mellitus, Hypothyroidism - Past Surgical History Past Surgical History: Yes: Hysterectomy, Joint Replacement, Cholecystectomy Additional Past Surgical History: 2012 RIGHT lobectomy for lung cancer,NO CHEMO OR RT - Smoking History Smoking history: Smoker current status UNK Have you smoked in the past 12 months: No Aproximately how many cigarettes per day: 0 If you are a former smoker, when did you quit?: 30 years ago - Alcohol/Substance Use Hx Alcohol Use: No History of Substance Use: reports: Marijuana, None - Social History ADL: Support Services ([employer]OC[employer]ATE) 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 Travel: No Home Medications - Allergies Allergies/Adverse Reactions: Allergies Allergy/AdvReac Type Severity Reaction Status Date / Time Sulfa (Sulfonamide Allergy Severe Hives Verified 06/24/19 18:34 Antibiotics) - Home Medications Home Medications: Ambulatory Orders Acetaminophen 650 mg PO PRN 04/20/19 Amlodipine Besylate 10 mg PO DAILY 04/20/19 Clonidine HCl 0.1 mg PO DAILY 04/20/19 Losartan Potassium 50 mg PO DAILY 04/20/19 Melatonin 5 mg PO HS 04/20/19 Metoprolol Succinate [Toprol Xl] 50 mg PO DAILY 04/20/19 Buspirone HCl [Buspar -] 5 mg PO BID #30 tablet 04/28/19 Clonazepam 0.5 mg PO BID PRN 06/20/19 Gabapentin [Neurontin -] 400 mg PO BID #60 capsule 06/20/19 Hydrocodone/Acetaminophen [[place] 10-325 Tablet] 1 tab PO QID #120 tablet MDD 4 06/20/19 Imatinib Mesylate [Gleevec (Restricted To Oncology) -] 400 mg PO DAILY 06/20/19 Interferon Beta-1A [Avonex Pen] 0.5 ml IM DAILY 06/20/19 Multivit-Min/Iron/Folic/Lutein [Centrum Silver Women Tablet] 1 each PO DAILY 03/30 Omeprazole 20 mg PO DAILY 06/20/19 Family Medical History Family History: Denies Review of Systems - Review of Systems Constitutional: reports: No Symptoms Eyes: reports: No Symptoms HENT: reports: No Symptoms Neck: reports: No Symptoms Cardiovascular: reports: No Symptoms Respiratory: reports: No Symptoms Gastrointestinal: reports: No Symptoms Genitourinary: reports: No Symptoms Musculoskeletal: reports: Joint Pain (generalized whole body pain), Muscle Pain Integumentary: reports: No Symptoms Neurological: reports: No Symptoms Endocrine: reports: No Symptoms Hematology/Lymphatic: reports: No Symptoms Psychiatric: reports: No Symptoms Physical Examination Vital Signs: Vital Signs Temperature 97.8 F 06/25/19 01:00 Pulse Rate 60 06/25/19 01:00 Respiratory Rate 16 06/25/19 01:00 Blood Pressure 143/53 L 06/25/19 01:00 O2 Sat by Pulse Oximetry (%) 98 06/25/19 01:00 Constitutional: Yes: No Distress, Calm Eyes: Yes: Conjunctiva Clear, EOM Intact HENT: Yes: Atraumatic, Normocephalic Neck: Yes: Supple, Trachea Midline Cardiovascular: Yes: Regular Rate and Rhythm Respiratory: Yes: Regular, CTA Bilaterally Gastrointestinal: Yes: Normal Bowel Sounds, Soft Renal/: Yes: WNL Musculoskeletal: Yes: Back Pain Extremities: Yes: WNL Edema: No Peripheral Pulses WNL: Yes Integumentary: Yes: WNL Neurological: Yes: Alert, Oriented Labs: CBC, BMP 06/24/19 22:45 06/24/19 22:45 Imaging - Results Chest X-ray: Report Reviewed (Chest x-ray: no infiltrate or consolidation.) Cat Scan: Report Reviewed (CT head:No evidence of acute pathology.) EKG: Report Reviewed (EKG sinus bradycardia with a rate of 58. Normal intervals present. QTc 439 ms. Normal axis. New T wave inversion present in V3 when compared to EKG performed 04/26/2019.) Problem List - Problems (1) FTT (failure to thrive) in adult Code(s): R62.7 - ADULT FAILURE TO THRIVE (2) GERD (gastroesophageal reflux disease) Code(s): K21.9 - GASTRO-ESOPHAGEAL REFLUX DISEASE WITHOUT ESOPHAGITIS (3) CML (chronic myelocytic leukemia) Code(s): C92.10 - CHRONIC MYELOID LEUK, BCR/ABL-POSITIVE, NOT ACHIEVE REMIS (4) Hypertension Code(s): I10 - ESSENTIAL (PRIMARY) HYPERTENSION (5) COPD (chronic obstructive pulmonary disease) Code(s): J44.9 - CHRONIC OBSTRUCTIVE PULMONARY DISEASE, UNSPECIFIED (6) Cervical stenosis of spine Code(s): M48.02 - SPINAL STENOSIS, CERVICAL REGION (7) Constipation Code(s): K59.00 - CONSTIPATION, UNSPECIFIED (8) Fibromyalgia Code(s): M79.7 - FIBROMYALGIA (9) History of CVA (cerebrovascular accident) Code(s): Z86.73 - PRSNL HX OF TIA (TIA), AND CEREB INFRC W/O RESID DEFICITS (10) Multiple sclerosis Code(s): G35 - MULTIPLE SCLEROSIS (11) Osteoarthritis Code(s): M19.90 - UNSPECIFIED OSTEOARTHRITIS, UNSPECIFIED SITE Qualifiers: Osteoarthritis location: unspecified site (12) Spinal stenosis Code(s): M48.00 - SPINAL STENOSIS, SITE UNSPECIFIED (13) Diabetes mellitus with renal manifestations, controlled Code(s): E11.29 - TYPE 2 DIABETES MELLITUS [facility] DIABETIC KIDNEY COMPLICATION Assessment/Plan 74 year old female with PMHx of CML, COPD, constipation, cervical stenosis, chronic pain syndrome, renal insufficiency, CVA, osteoarthritis, fibromyalgia, multiple sclerosis who arrived to the ED with c/o of "i have difficulty walking ". Patient mentioned seen by Dr. De Leon at his him who recommended to go to ER for evaluation and possible SNF placement. Patient is a poor historian. # FTT - CT head: no acute pathology - CXR: no acute infiltrate - EKG: EKG sinus bradycardia with a rate of 58. Normal intervals present. QTc 439 ms. Normal axis. New T wave inversion present in V3 when compared to EKG performed 04/26/2019. denies cp/sob, trop : negative cbc, cmp: unremarkable - dietary follow up -follow up social, case management for placement - safety/fall precaution #Chronic pain due to neoplasm Continue Gleevec Monitor vitals Monitor CBC, BMP f/u with Oncology outpatient #OA Acetaminophen 650 mg PO PRN Gabapentin 400 mg PO BID Hydrocodone/Acetaminophen 1 tab PO QID # HTN (hypertension) stable Monitor BP Continue home meds Metoprolol Succinate 50 mg PO DAILY Amlodipine Besylate 10 mg PO DAILY Losartan Potassium 50 mg PO DAILY Monitor renal function #COPD (chronic obstructive pulmonary disease) stable Chest Xray image- reviewed nebs PRN #Hypothyroidism verify home medication f/u TSH #insomnia - Melatonin 5 mg PO HS # DM diet controlled f/u hga1c BGM AC Diet: CAYDEN/NCS diet VTE: Heparin SQ Dispo: Med-surg Visit type - Emergency Visit Emergency Visit: Yes ED Registration Date: 06/25/19 Care time: The patient presented to the Emergency Department on the above date and was hospitalized for further evaluation of their emergent condition. - New Patient This patient is new to me today: Yes Date on this admission: 06/25/19 - Critical Care Critical Care patient: No
[2019-06-25] MEDS ORDERED: ZOLPIDEM TARTRATE 5 MG TABLET ONE (03:19)
[2019-06-25] MEDS ORDERED: ACETAMINOPHEN 325 MG TABLET (FP) PO PRN (03:30)
[2019-06-25] MEDS ORDERED: IPRATROPIUM BR 0.02% 0.5 MG/2.5 ML VIAL.NEB. NEB PRN (03:30)
[2019-06-25] MEDS ORDERED: ALBUTEROL SO4 0.083% IH SOL 2.5 MG/3 ML VIAL.NEB. NEB PRN (03:30)
[2019-06-25 06:44] LABS: HEMATOCRIT 30.4 % (32.4-45.2); HEMOGLOBIN 10.1 GM/dL (10.7-15.3); MCH 28.3 pg (25.7-33.7); MCHC 33.2 g/dl (32.0-36.0); MEAN CELL VOLUME 85.4 fl (80-96); MEAN PLT VOLUME 9.4 fl (7.5-11.1); PLATELET COUNT 253 K/MM3 (134-434); RBC 3.56 M/mm3 (3.60-5.2); RDW 15.1 % (11.6-15.6); WHITE BLOOD COUNT 5.8 K/mm3 (4.0-10.0)
--- NOTE | 2019-06-25 09:07 | PN ---
Progress Note, Physician - Current Medication List Current Medications: Active Medications Acetaminophen (Tylenol -) 650 mg PO Q6H PRN PRN Reason: PAIN LEVEL 1-5 Acetaminophen (Tylenol -) 325 mg PO QID ROSALIE Albuterol Sulfate (Ventolin 0.083% Nebulizer Soln -) 1 amp NEB QID PRN PRN Reason: SHORT OF BREATH/WHEEZING Amlodipine Besylate (Norvasc -) 10 mg PO DAILY [facility] Gabapentin (Neurontin -) 400 mg PO BID ROSALIE Heparin Sodium (Porcine) (Heparin -) 5,000 unit SQ BID ROSALIE Imatinib Mesylate (Gleevec (Restricted To Oncology) -) 400 mg PO DAILY ROSALIE Ipratropium [place] (Atrovent 0.02% Nebulizer -) 1 amp NEB RQID PRN PRN Reason: WHEEZING Losartan Potassium (Cozaar -) 50 mg PO DAILY ROSALIE Melatonin (Melatonin) 5 mg PO HS ROSALIE Metoprolol Succinate (Toprol Xl -) 50 mg PO DAILY ROSALIE Oxycodone HCl (Roxicodone -) 5 mg PO QID ROSALIE Pantoprazole Sodium (Protonix -) 20 mg PO DAILY ROSALIE - Objective Vital Signs: Vital Signs Temperature 98.3 F 06/25/19 07:33 Pulse Rate 64 06/25/19 07:33 Respiratory Rate 20 06/25/19 07:33 Blood Pressure 165/79 06/25/19 07:33 O2 Sat by Pulse Oximetry (%) 99 06/25/19 07:33 Cardiovascular: Yes: S1, S2 Respiratory: Yes: Regular, CTA Bilaterally Gastrointestinal: Yes: Normal Bowel Sounds, Soft Musculoskeletal: Yes: Back Pain, Joint Stiffness Neurological: Yes: Alert, Oriented, Pre-Existing Deficit, Unsteady Gait, Weakness Labs: CBC, BMP 06/25/19 05:30 06/25/19 05:30 Problem List - Problems (1) FTT (failure to thrive) in adult Assessment/Plan: - CT head: no acute pathology - CXR: no acute infiltrate -cbc, cmp: unremarkable - dietary follow up -follow up social, case management for placement - safety/fall precaution Code(s): R62.7 - ADULT FAILURE TO THRIVE (2) HTN (hypertension) Code(s): I10 - ESSENTIAL (PRIMARY) HYPERTENSION (3) Weakness Assessment/Plan: PT DC PLANNING__PLACEMENT Code(s): R53.1 - WEAKNESS (4) COPD (chronic obstructive pulmonary disease) Assessment/Plan: stable Chest Xray image- reviewed nebs Code(s): J44.9 - CHRONIC OBSTRUCTIVE PULMONARY DISEASE, UNSPECIFIED (5) Diabetes Assessment/Plan: diet controlled f/u hga1c BGM AC Code(s): E11.9 - TYPE 2 DIABETES MELLITUS WITHOUT COMPLICATIONS Qualifiers: Diabetes mellitus type: type 2 (6) Multiple sclerosis Assessment/Plan: Neuro follow up PT Code(s): G35 - MULTIPLE SCLEROSIS (7) Spinal stenosis Assessment/Plan: Acetaminophen 650 mg PO PRN Gabapentin 400 mg PO BID Hydrocodone/Acetaminophen 1 tab PO QID Code(s): M48.00 - SPINAL STENOSIS, SITE UNSPECIFIED (8) Chronic pain due to neoplasm Assessment/Plan: Continue Gleevec Monitor vitals Monitor CBC, BMP f/u with Oncology outpatient Code(s): G89.3 - NEOPLASM RELATED PAIN (ACUTE) (CHRONIC) (9) Hypertension Assessment/Plan: stable Monitor BP Continue home meds Metoprolol Succinate 50 mg PO DAILY Amlodipine Besylate 10 mg PO DAILY Losartan Potassium 50 mg PO DAILY Monitor renal function Code(s): I10 - ESSENTIAL (PRIMARY) HYPERTENSION
[2019-06-25] MEDS ORDERED: ACETAMINOPHEN 325 MG TABLET (FP) ONE ×3 (09:31→19:24)
[2019-06-25] MEDS ORDERED: oxyCODONE HCL 5 MG TABLET ONE ×3 (09:32→19:24)
--- NOTE | 2019-06-25 09:55 | EKG ---
Test Reason : Blood Pressure : / mmHG Vent. Rate : 058 BPM Atrial Rate : 058 BPM P-R Int : 148 ms QRS Dur : 084 ms QT Int : 448 ms P-R-T Axes : 075 077 057 degrees QTc Int : 439 ms SINUS BRADYCARDIA T WAVE ABNORMALITY, CONSIDER ANTERIOR ISCHEMIA ABNORMAL ECG WHEN COMPARED WITH ECG OF 26-APR-2019 09:43, NO SIGNIFICANT CHANGE WAS FOUND Confirmed by CHAGO ALMEIDA, ALINA ([id number]) on 06/25/2019 9:55:15 AM Referred By: Confirmed By:ALINA ANDERS MD
[2019-06-25] MEDS ORDERED: PATIENT'S OWN MEDICATION (NON-FORMULARY) (Omeprazole 20 MG) PO SCH (10:00)
[2019-06-25] MEDS ORDERED: IMATINIB MESYLATE 400 MG PO SCH (10:00)
[2019-06-25] MEDS: LOSARTAN POTASSIUM 50 MG TABLET (FP) PO SCH (10:01)
[2019-06-25] MEDS: GABAPENTIN 400 MG CAPSULE PO SCH ×2 (10:01→23:18)
[2019-06-25] MEDS: HEPARIN NA (PORCINE) 5,000 UNITS/ML 1ML VIAL SQ SCH ×2 (10:01→23:18)
[2019-06-25] MEDS: amLODIPine BESYLATE 10 MG TABLET (FP) PO SCH (10:01)
[2019-06-25] MEDS: PANTOPRAZOLE 20 MG TABLET PO SCH (10:02)
[2019-06-25] MEDS: oxyCODONE HCL 5 MG TABLET PO SCH ×4 (10:03→23:19)
[2019-06-25] MEDS: ACETAMINOPHEN 325 MG TABLET (FP) PO SCH ×4 (10:05→23:19)
[2019-06-25] MEDS ORDERED: cloNIDine HCL 0.1 MG TABLET ONE (10:08)
[2019-06-25] MEDS ORDERED: busPIRone HCL 5 MG TABLET ONE (10:09)
[2019-06-25] MEDS: busPIRone HCL 5 MG TABLET PO SCH ×2 (10:11→23:18)
[2019-06-25] MEDS: cloNIDine HCL 0.1 MG TABLET PO SCH (10:11)
[2019-06-25] MEDS: IMATINIB MESYLATE 400 MG TABLET PO SCH (18:14)
[2019-06-25] MEDS ORDERED: clonazePAM 0.5 MG TABLET ONE (19:25)
[2019-06-25] MEDS: clonazePAM 0.5 MG TABLET PO PRN (19:31)
[2019-06-25] MEDS: MELATONIN 5 MG TABLETS PO SCH (23:18)
--- NOTE | 2019-06-25 23:55 | CONSULT ---
Consult Consult Specialty:: Endocrine Referred by:: dr.iyad barry Reason for Consultation:: dmt2, - History of Present Illness Chief Complaint: weakness unable to perform adl History of Present Illness: 74 year old female with PMHx of DMT2, MS,CML, COPD, constipation, cervical stenosis, chronic pain syndrome, renal insufficiency, CVA, osteoarthritis, fibromyalgia, who was seen outpatient and had complaint of weakness and difficulty coping with living alone not able to take care of herself, with adl, wanting to have SNF placement.she has difficulty walking from bed to chair,had fallen at home several times and has fear of falling at home when no one is around.she forgets to take medications and has not been eating or drinking well .fe - Past Medical 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: CVA, 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 Cardio/Vascular: Yes: HTN Pulmonary: Yes: Asthma, COPD Gastrointestinal: Yes: GERD (using walker at home ) Renal/: Yes: Renal Inusuff Psych: Yes: Depression Musculoskeletal: Yes: Osteoarthritis, Other (DDD) Rheumatology: Yes: Rheumatoid Arthritis Endocrine: Yes: Diabetes Mellitus, Hypothyroidism Additional Medical History: as in HPI, morbidly obese - Past Surgical History Past Surgical History: Yes: Hysterectomy, Joint Replacement, Cholecystectomy - Alcohol/Substance Use Hx Alcohol Use: No History of Substance Use: reports: Marijuana, None - Smoking History Smoking history: Smoker current status UNK Have you smoked in the past 12 months: No Aproximately how many cigarettes per day: 0 If you are a former smoker, when did you quit?: 30 years ago - Social History Usual Living Arrangement: Detention 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 Travel: No Home Medications - Allergies Allergies/Adverse Reactions: Allergies Allergy/AdvReac Type Severity Reaction Status Date / Time Sulfa (Sulfonamide Allergy Severe Hives Verified 06/24/19 18:34 Antibiotics) - Home Medications Home Medications: Ambulatory Orders Acetaminophen 650 mg PO PRN 04/20/19 Amlodipine Besylate 10 mg PO DAILY 04/20/19 Clonidine HCl 0.1 mg PO DAILY 04/20/19 Losartan Potassium 50 mg PO DAILY 04/20/19 Melatonin 5 mg PO HS 04/20/19 Metoprolol Succinate [Toprol Xl] 50 mg PO DAILY 04/20/19 Buspirone HCl [Buspar -] 5 mg PO BID #30 tablet 04/28/19 Clonazepam 0.5 mg PO BID PRN 06/20/19 Gabapentin [Neurontin -] 400 mg PO BID #60 capsule 06/20/19 Hydrocodone/Acetaminophen [[place] 10-325 Tablet] 1 tab PO QID #120 tablet MDD 4 06/20/19 Imatinib Mesylate [Gleevec (Restricted To Oncology) -] 400 mg PO DAILY 06/20/19 Interferon Beta-1A [Avonex Pen] 0.5 ml IM DAILY 06/20/19 Multivit-Min/Iron/Folic/Lutein [Centrum Silver Women Tablet] 1 each PO DAILY 03/30 Omeprazole 20 mg PO DAILY 06/20/19 Review of Systems - Review of Systems Constitutional: reports: Lethargy, Weakness Eyes: reports: Blurred Vision HENT: reports: Throat Pain Neck: reports: Pain on Movement, Stiffness Cardiovascular: reports: Shortness of Breath Respiratory: reports: Exercise Intolerance, SOB, SOB on Exertion Gastrointestinal: reports: Bloating, Constipation, Nausea Genitourinary: reports: Flank Pain Breasts: reports: No Symptoms Reported Musculoskeletal: reports: Extremity Pain, Joint Swelling, Muscle Pain, Muscle Cramps Endocrine: reports: Unexplained Weight Loss Physical Exam Vital Signs: Vital Signs Temperature 98.4 F 06/25/19 14:37 Pulse Rate 60 06/25/19 19:32 Respiratory Rate 18 06/25/19 19:32 Blood Pressure 171/91 H 06/25/19 19:32 O2 Sat by Pulse Oximetry (%) 99 06/25/19 19:32 Constitutional: Yes: Anxious Eyes: Yes: EOM Intact HENT: Yes: Normocephalic Neck: Yes: Trachea Midline Cardiovascular: Yes: Regular Rate and Rhythm Respiratory: Yes: CTA Bilaterally Gastrointestinal: Yes: Normal Bowel Sounds ...Rectal Exam: Yes: Deferred Musculoskeletal: Yes: Back Pain, Muscle Weakness Extremities: Yes: WNL Edema: No Neurological: Yes: Alert, Oriented Labs: CBC, BMP 06/25/19 05:30 06/25/19 05:30 Problem List - Problems (1) FTT (failure to thrive) in adult Problems reviewed: Yes Code(s): R62.7 - ADULT FAILURE TO THRIVE (2) GERD (gastroesophageal reflux disease) Problems reviewed: Yes Code(s): K21.9 - GASTRO-ESOPHAGEAL REFLUX DISEASE WITHOUT ESOPHAGITIS (3) Abnormal antibody titer Problems reviewed: Yes Code(s): R76.8 - OTHER SPECIFIED ABNORMAL IMMUNOLOGICAL FINDINGS IN SERUM (4) Acute kidney failure Problems reviewed: Yes Code(s): N17.9 - ACUTE KIDNEY FAILURE, UNSPECIFIED (5) Anemia Problems reviewed: Yes Code(s): D64.9 - ANEMIA, UNSPECIFIED (6) C. difficile diarrhea Problems reviewed: Yes Code(s): A04.72 - ENTEROCOLITIS D/T CLOSTRIDIUM DIFFICILE, NOT SPCF RECUR (7) Type 2 diabetes mellitus with hyperosmolarity without nonketotic hyperglycemic-hyperosmolar coma ([facility]) Problems reviewed: Yes Code(s): E11.00 - TYPE 2 DIAB W HYPROSM W/O NONKET HYPRGLY-HYPROS COMA ([facility]) Assessment/Plan Current Active Problems FTT (failure to thrive) in adult (Acute) GERD (gastroesophageal reflux disease) (Acute) leukemia ms osteoarthritis spine depression anxiety Abnormal Lab Results 06/25/19 05:30 RBC 3.56 L Hgb 10.1 L Hct 30.4 L Laboratory Results - last 24 hr 06/25/19 06/25/19 06/25/19 00:30 05:30 05:30 WBC 5.8 RBC 3.56 L Hgb 10.1 L Hct 30.4 L MCV 85.4 MCH 28.3 MCHC 33.2 RDW 15.1 Plt Count 253 MPV 9.4 D Sodium Cancelled Potassium Cancelled Chloride Cancelled Carbon Dioxide Cancelled Anion Gap Cancelled BUN Cancelled Creatinine Cancelled Est GFR (CKD-EPI)AfAm Cancelled Est GFR (CKD-EPI)NonAf Cancelled Random Glucose Cancelled Hemoglobin A1c % Calcium Cancelled Creatine Kinase 112 Troponin I < 0.02 TSH Cancelled 06/25/19 05:30 WBC RBC Hgb Hct MCV MCH MCHC RDW Plt Count MPV Sodium Potassium Chloride Carbon Dioxide Anion Gap BUN Creatinine Est GFR (CKD-EPI)AfAm Est GFR (CKD-EPI)NonAf Random Glucose Hemoglobin A1c % 4.7 Calcium Creatine Kinase Troponin I TSH plan: nutrition consult psychiatry consult for depression SNF placement
[2019-06-26 04:22] VITALS: BMI 28.5
[2019-06-26] MEDS: busPIRone HCL 5 MG TABLET PO SCH (09:16)
[2019-06-26] MEDS: amLODIPine BESYLATE 10 MG TABLET (FP) PO SCH (09:16)
[2019-06-26] MEDS: cloNIDine HCL 0.1 MG TABLET PO SCH (09:16)
[2019-06-26] MEDS: PANTOPRAZOLE 20 MG TABLET PO SCH (09:16)
[2019-06-26] MEDS: GABAPENTIN 400 MG CAPSULE PO SCH ×2 (09:16→22:08)
[2019-06-26] MEDS: HEPARIN NA (PORCINE) 5,000 UNITS/ML 1ML VIAL SQ SCH ×2 (09:17→22:08)
[2019-06-26] MEDS: oxyCODONE HCL 5 MG TABLET PO SCH ×4 (09:17→22:09)
[2019-06-26] MEDS: LOSARTAN POTASSIUM 50 MG TABLET (FP) PO SCH (09:17)
[2019-06-26] MEDS: ACETAMINOPHEN 325 MG TABLET (FP) PO SCH ×4 (09:18→22:09)
--- NOTE | 2019-06-26 10:03 | PN ---
Progress Note, Physician Chief Complaint: FTT Weakness History of Present Illness: Previous notes and events reviewed awake and alert NAD complains of difficulty walking denies chest pain or SOB - Current Medication List Current Medications: Active Medications Acetaminophen (Tylenol -) 650 mg PO Q6H PRN PRN Reason: PAIN LEVEL 1-5 Acetaminophen (Tylenol -) 325 mg PO QID [facility] Last Admin: 06/26/19 09:18 Dose: 325 mg Albuterol Sulfate (Ventolin 0.083% Nebulizer Soln -) 1 amp NEB QID PRN PRN Reason: SHORT OF BREATH/WHEEZING Amlodipine Besylate (Norvasc -) 10 mg PO DAILY [facility] Last Admin: 06/26/19 09:16 Dose: 10 mg Buspirone HCl (Buspar -) 5 mg PO BID [facility] Last Admin: 06/26/19 09:16 Dose: 5 mg Clonazepam (Klonopin -) 0.5 mg PO BID PRN PRN Reason: ANXIETY Last Admin: 06/25/19 19:31 Dose: 0.5 mg Clonidine (Catapres -) 0.1 mg PO DAILY [facility] Last Admin: 06/26/19 09:16 Dose: 0.1 mg Gabapentin (Neurontin -) 400 mg PO BID [facility] Last Admin: 06/26/19 09:16 Dose: 400 mg Heparin Sodium (Porcine) (Heparin -) 5,000 unit SQ BID [facility] Last Admin: 06/26/19 09:17 Dose: 5,000 unit Imatinib Mesylate (Gleevec (Restricted To Oncology) -) 400 mg PO DAILY [facility] Last Admin: 06/25/19 18:14 Dose: Not Given Ipratropium [place] (Atrovent 0.02% Nebulizer -) 1 amp NEB RQID PRN PRN Reason: WHEEZING Losartan Potassium (Cozaar -) 50 mg PO DAILY [facility] Last Admin: 06/26/19 09:17 Dose: 50 mg Melatonin (Melatonin) 5 mg PO HS [facility] Last Admin: 06/25/19 23:18 Dose: 5 mg Metoprolol Succinate (Toprol Xl -) 50 mg PO DAILY [facility] Last Admin: 06/26/19 09:16 Dose: 50 mg Oxycodone HCl (Roxicodone -) 5 mg PO QID [facility] Last Admin: 06/26/19 09:17 Dose: 5 mg Pantoprazole Sodium (Protonix -) 20 mg PO DAILY [facility] Last Admin: 06/26/19 09:16 Dose: 20 mg - Objective Vital Signs: Vital Signs Temperature 98.6 F 06/26/19 07:00 Pulse Rate 57 L 06/26/19 07:00 Respiratory Rate 18 06/26/19 07:00 Blood Pressure 150/78 06/26/19 07:00 O2 Sat by Pulse Oximetry (%) 99 06/25/19 23:30 Constitutional: Yes: No Distress, Calm Eyes: Yes: Conjunctiva Clear HENT: Yes: Atraumatic Cardiovascular: Yes: Regular Rate and Rhythm Respiratory: Yes: Regular, CTA Bilaterally Gastrointestinal: Yes: Normal Bowel Sounds, Soft Genitourinary: Yes: Incontinence Musculoskeletal: Yes: Muscle Weakness Extremities: Yes: WNL Edema: Yes Edema: LLE: Trace, RLE: Trace Integumentary: Yes: Other (scar-abdomen) Neurological: Yes: Alert, Oriented Psychiatric: Yes: Alert, Oriented Labs: CBC, BMP 06/25/19 05:30 06/25/19 05:30 Problem List - Problems (1) FTT (failure to thrive) in adult Assessment/Plan: -PT -fall precautions -Auto 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 Technician request Code(s): R62.7 - ADULT FAILURE TO THRIVE (2) GERD (gastroesophageal reflux disease) Assessment/Plan: -Pantoprazole Code(s): K21.9 - GASTRO-ESOPHAGEAL REFLUX DISEASE WITHOUT ESOPHAGITIS (3) CML (chronic myelocytic leukemia) Assessment/Plan: -Gleevac -follow up with oncology outpatient Code(s): C92.10 - CHRONIC MYELOID LEUK, BCR/ABL-POSITIVE, NOT ACHIEVE REMIS (4) HTN (hypertension) Assessment/Plan: -Amlodipine, Metoprolol, Clonidine, Losartan -low Na diet Code(s): I10 - ESSENTIAL (PRIMARY) HYPERTENSION (5) Hypothyroidism Assessment/Plan: -Levothyroxine Code(s): E03.9 - HYPOTHYROIDISM, UNSPECIFIED (6) Weakness Assessment/Plan: -PT -fall precaution -Head CT scan shows no evidence of acute intracranial hemorrhage, edema, midline shift, mass effect, or skull fracture, no CT evidence of acute territorial ischemic changes, supratentorial chronic white matter microangiopathic ischemic changes, gliosis Code(s): R53.1 - WEAKNESS (7) COPD (chronic obstructive pulmonary disease) Assessment/Plan: -bronchodilators -keep SpO2 >90% -O2 via NC prn for SOB Code(s): J44.9 - CHRONIC OBSTRUCTIVE PULMONARY DISEASE, UNSPECIFIED (8) Diabetes Assessment/Plan: -BGM ACBK -HgA1c 4.7% -Endocrinology on board Code(s): E11.9 - TYPE 2 DIABETES MELLITUS WITHOUT COMPLICATIONS Qualifiers: Diabetes mellitus type: type 2 Assessment/Plan see problem list dvt ppx will need SNF placement for discharge
[2019-06-26] MEDS: IMATINIB MESYLATE 400 MG TABLET PO SCH (12:28)
--- NOTE | 2019-06-26 17:51 | CON.PSY ---
Psychiatry Consult Chief Complaint: I dont want to go home, i want to go to [facility]. Insurance is not going to pay for it. I feel nervous and depressed. I dont want to kill myself. Symptoms: reports: Depressed Mood - Previous Psychiatric Treatment Outpatient: None Inpatient: None - Previous Substance Abuse Treatment Outpatient: None Inpatient: None - Reason for Previous Treatment Reason for Previous Treatment: Anxiety or Panic Disorder - Current Medications Current Medications: Active Medications Acetaminophen (Tylenol -) 650 mg PO Q6H PRN PRN Reason: PAIN LEVEL 1-5 Acetaminophen (Tylenol -) 325 mg PO QID [facility] OF [facility] Last Admin: 06/26/19 13:51 Dose: 325 mg Albuterol Sulfate (Ventolin 0.083% Nebulizer Soln -) 1 amp NEB QID PRN PRN Reason: SHORT OF BREATH/WHEEZING Amlodipine Besylate (Norvasc -) 10 mg PO DAILY ON [facility] Last Admin: 06/26/19 09:16 Dose: 10 mg Clonazepam (Klonopin -) 0.5 mg PO BID PRN PRN Reason: ANXIETY Last Admin: 06/25/19 19:31 Dose: 0.5 mg Clonidine (Catapres -) 0.1 mg PO DAILY [facility] Last Admin: 06/26/19 09:16 Dose: 0.1 mg Gabapentin (Neurontin -) 400 mg PO BID [facility] Last Admin: 06/26/19 09:16 Dose: 400 mg Heparin Sodium (Porcine) (Heparin -) 5,000 unit SQ BID [facility] Last Admin: 06/26/19 09:17 Dose: 5,000 unit Imatinib Mesylate (Gleevec (Restricted To Oncology) -) 400 mg PO DAILY ON [facility] Last Admin: 06/26/19 12:28 Dose: Not Given Ipratropium [place] (Atrovent 0.02% Nebulizer -) 1 amp NEB RQID PRN PRN Reason: WHEEZING Losartan Potassium (Cozaar -) 50 mg PO DAILY ON [facility] Last Admin: 06/26/19 09:17 Dose: 50 mg Melatonin (Melatonin) 5 mg PO HS [facility] Last Admin: 06/25/19 23:18 Dose: 5 mg Metoprolol Succinate (Toprol Xl -) 50 mg PO DAILY [facility] Last Admin: 06/26/19 09:16 Dose: 50 mg Oxycodone HCl (Roxicodone -) 5 mg PO QID ON [facility] Last Admin: 06/26/19 13:52 Dose: 5 mg Pantoprazole Sodium (Protonix -) 20 mg PO DAILY ON [facility] Last Admin: 06/26/19 09:16 Dose: 20 mg - Allergies Allergies: Allergies Allergy/AdvReac Type Severity Reaction Status Date / Time Sulfa (Sulfonamide Allergy Severe Hives Verified 06/24/19 18:34 Antibiotics) - Current Living Status Usual Living Arrangement: Alone - Current Mental Status Evaluation Appearance: Well Groomed Attitude: Cooperative - Affect Affect: Constrictive Appropriateness: Appropriate to Content - Mood Mood: Depressed, Anxious - Speech/Language Expressive: Coherent - Psychomotor Activity Psychomotor Activity: Normal - Thought Process Thought Process: Intact - Thought Content Hallucinations: Absent Delusions: Absent - Self Perception Self Perception: No Impairment - Cognition Attention: Alert Orientation: Time Memory, Immediate Recall: Intact Memory, Short Term: 2/3 Memory, Remote with Promptin/3 - Concentration Serial Sevens Intact: No Simple Calculations Intact: Yes - Abstraction Proverb Interpretation: Intact Judgement: Intact - Insight Insight: Intact - Impulse Control Impulse Control: Good Control - Suicidal Ideation Suicidal Ideation: No - Homicidal Ideation Homicidal Ideation: No Assessment/Plan 1) d/c Buspar 2) [id number] p[o hs for depression and appetite.
--- NOTE | 2019-06-26 19:07 | CONSULT ---
Consult - text type - Consultation Consultation Note: NEUROLOGY CONSULTATION is greatly appreciated: This 74 yo RH estranged woman carries Dx of "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" > 30 years with normal MRI's in the past. Remains on Avonex. Has electric scooter at home. Well-documented pseudoseizures and chronic depression. Followed by me for migraine headaches (controlled by Metoprolol) and chronic leg pain due to Restless Limbs Syndrome (RLS) and responsive to pramipexole. Recently at [facility] but D/C'ed to home 2 weeks ago. Feels anxious, depressed, and doesn't want to be alone. Desires readmission to [place] for intermission coordinator care. PMH also sig for HTN, depression, anxiety; CML; GERD. Maintained on: Acetaminophen; Amlodipine; Clonidine; Losartan; Melatonin; Metoprolol Xl 50; Buspirone 5 mg PO BID; Clonazepam 0.5 mg PO BID; Gabapentin 400 mg PO BID; [place] 10-325 1 tab PO QID; Gleevec 400 mg; Interferon Beta-1A [Avonex Pen] 0.5 ml IM WEEKLY; omeprazole [address] of head (reviewed): Mild age-related atrophy. Normal study ANKIT: Neck supple. Neg Lhermitte's. No bruits. Cor reg. Neg Miguelito's NEURO: MS normal. Fluent but stuttering speech. Withdrawn, depressed. No frontal release findings. CN II-XII: Normal Motor: No drift or tremor. Normal strength with encouragement. Normal reflexes. Toes downgoing Coord: No FTN dystaxia Sensory: Normal vibration and position toes. IMP: Essentially normal exam. Migraine headaches. Chronic pain due to RLS. Pseudoseizures SUGGEST: Resume pramipexole 0.25 mg BID after breakfast and dinner Increase Gabapentin to 400 mg TID Agree with Remeron Rx and D/C of Buspar as per Dr. Salamanca Give Clonazepam 0.5 mg q 8hrs as STANDING dose Mobilize OO Bed to chair and PT Oncology consultation director construction services. Thank you very much, Donald West MD
[2019-06-26] MEDS ORDERED: MIRTAZAPINE 15 MG TABLET (FP) PO SCH (22:00)
[2019-06-26] MEDS: clonazePAM 0.5 MG TABLET PO PRN (22:08)
[2019-06-26] MEDS: MELATONIN 5 MG TABLETS PO SCH (22:09)
[2019-06-26] MEDS: PRAMIPEXOLE DIHYDROCHLORIDE 0.25 MG TABLET PO SCH (22:09)
[2019-06-27 07:40] LABS: HEMATOCRIT 30.8 % (32.4-45.2); HEMOGLOBIN 10.2 GM/dL (10.7-15.3); MCH 27.6 pg (25.7-33.7); MEAN CELL VOLUME 83.7 fl (80-96); MEAN PLT VOLUME 7.8 fl (7.5-11.1); PLATELET COUNT 225 K/MM3 (134-434); RBC 3.68 M/mm3 (3.60-5.2); RDW 14.4 % (11.6-15.6); WHITE BLOOD COUNT 4.8 K/mm3 (4.0-10.0)
[2019-06-27 08:15] LABS: ALBUMIN 3.1 g/dl (3.4-5.0); BILIRUBIN,TOTAL 0.4 mg/dL (0.2-1); CALCIUM 8.4 mg/dL (8.5-10.1); CREATININE 0.9 mg/dL (0.55-1.3); POTASSIUM 3.8 mmol/L (3.5-5.1); TOT PROT 6.1 g/dl (6.4-8.2)
--- NOTE | 2019-06-27 10:12 | CONSULT ---
Consultation: REQUESTING PROVIDER: Dr Pj Menchaca CONSULT REQUEST: We have been asked to medically evaluate this patient for ( anemia CML ). HISTORY OF PRESENT ILLNESS: 74 year old female with PMHx of CML, COPD, constipation, cervical stenosis, chronic pain syndrome, renal insufficiency, CVA, osteoarthritis, fibromyalgia, multiple sclerosis who arrived to the ED with c/o of "i have diffuculty walking ". Patient mentioned seen by Dr. De Leon at his him who recommended to go to ER for evaluation and possible SNF placement. Patient denies fevers, chills, headaches, blurry vision, dizziness, chest pain, shortness of breath. Patient does endorse pain throughout her entire body. Patient is a poor historian. REVIEW OF SYSTEMS:denies any fever , chills, N/V/D/C , reports generalized weakness and loss of appetite PHYSICAL EXAMINATION Vital Signs - 24 hr 06/26/19 06/26/19 06/26/19 10:55 15:10 15:14 Temperature 98.2 F 98.1 F 98.1 F Pulse Rate 68 61 61 Respiratory 18 18 18 Rate Blood Pressure 139/59 L 142/68 142/68 O2 Sat by Pulse Oximetry (%) 06/26/19 06/26/19 06/27/19 18:00 21:00 06:00 Temperature 99.1 F 98.3 F Pulse Rate 54 L 56 L Respiratory 18 18 Rate Blood Pressure 138/62 169/58 L O2 Sat by Pulse 99 Oximetry (%) GENERAL: Awake, alert, and fully oriented, in no acute distress. HEAD: Normal with no signs of trauma. EYES: Pupils equal, round and reactive to light, extraocular movements intact, EARS, NOSE, THROAT: dry mucous membranes. NECK: supple without lymphadenopathy, no breast mass appreciated LUNGS: Breath sounds equal, clear to auscultation bilaterally. No wheezes, and no crackles. No accessory muscle use. HEART: Regular rate and rhythm, normal S1 and S2 without murmur, rub or gallop. ABDOMEN: Soft, nontender, not distended, normoactive bowel sounds, no guarding, LOWER EXTREMITIES: 2+ pulses, warm, well-perfused. No calf tenderness. No peripheral edema. NEUROLOGICAL: left leg weakness , Upper ext 5/5 proximal and distal , sensation intact . Normal speech. PSYCHIATRIC: Cooperative. Laboratory Results - last 24 hr 06/27/19 06/27/19 06:50 06:50 WBC 4.8 RBC 3.68 Hgb 10.2 L Hct 30.8 L MCV 83.7 MCH 27.6 MCHC 33.0 RDW 14.4 Plt Count 225 MPV 7.8 D Sodium 142 Potassium 3.8 Chloride 111 H Carbon Dioxide 26 Anion Gap 5 L BUN 11.0 Creatinine 0.9 Est GFR (CKD-EPI)AfAm 73.00 Est GFR (CKD-EPI)NonAf 62.99 Random Glucose 73 L Calcium 8.4 L Total Bilirubin 0.4 AST 15 ALT 11 L Alkaline Phosphatase 85 Total Protein 6.1 L Albumin 3.1 L Active Medications Generic Name Dose Route Start Last Admin Trade Name Freq PRN Reason Stop Dose Admin Acetaminophen 650 mg 06/25/19 03:30 06/27/19 06:10 Tylenol - PO 650 mg Q6H PRN Administration PAIN LEVEL 1-5 Acetaminophen 325 mg 06/25/19 10:00 06/26/19 22:09 Tylenol - PO 325 mg QID ROSALIE Administration Albuterol Sulfate 1 amp 06/25/19 03:30 Ventolin 0.083% Nebulizer Soln - NEB QID PRN SHORT OF BREATH/WHEEZING Amlodipine Besylate 10 mg 06/25/19 10:00 06/26/19 09:16 Norvasc - PO 10 mg DAILY [facility] Administration Clonazepam 0.5 mg 06/25/19 09:34 06/26/19 22:08 Klonopin - PO 0.5 mg BID PRN Administration ANXIETY Clonidine 0.1 mg 06/25/19 10:00 06/26/19 09:16 Catapres - PO 0.1 mg DAILY ROS[facility]IE Administration Gabapentin 400 mg 06/25/19 10:00 06/26/19 22:08 Neurontin - PO 400 mg BID ROS[facility] Administration Heparin Sodium (Porcine) 5,000 unit 06/25/19 10:00 06/26/19 22:08 Heparin - SQ 5,000 unit BID [facility] Administration Imatinib Mesylate 400 mg 06/25/19 10:00 06/26/19 12:28 Gleevec (Restricted To Oncology) - PO Not Given DAILY [facility] Ipratropium [place] 1 amp 06/25/19 03:30 Atrovent 0.02% Nebulizer - NEB RQID PRN WHEEZING Losartan Potassium 50 mg 06/25/19 10:00 06/26/19 09:17 Cozaar - PO 50 mg DAILY [facility] Administration Melatonin 5 mg 06/25/19 22:00 06/26/19 22:09 Melatonin PO 5 mg HS ROS[facility]IE Administration Metoprolol Succinate 50 mg 06/25/19 10:00 06/26/19 09:16 Toprol Xl - PO 50 mg DAILY [facility] Administration Mirtazapine 15 mg 06/26/19 22:00 06/26/19 22:09 Remeron - PO 15 mg HS [facility] Administration Oxycodone HCl 5 mg 06/25/19 10:00 06/26/19 22:09 Roxicodone - PO 5 mg QID [facility] Administration Pantoprazole Sodium 20 mg 06/25/19 10:00 06/26/19 09:16 Protonix - PO 20 mg DAILY [facility] Administration Pramipexole Dihydrochloride 0.25 mg 06/26/19 22:00 06/26/19 22:09 Mirapex - PO 0.25 mg BID [facility] Administration CBC, BMP 06/27/19 06:50 06/27/19 06:50 ASSESSMENT/PLAN: CML chronic on Gleveec cont follow up with Dr Toledo as out pt Dispo: We will continue to follow the patient. Thank you for this consultative opportunity. Visit type - Emergency Visit Emergency Visit: Yes ED Registration Date: 06/25/19 Care time: The patient presented to the Emergency Department on the above date and was hospitalized for further evaluation of their emergent condition. - New Patient This patient is new to me today: No - Critical Care Critical Care patient: No ATTENDING PHYSICIAN STATEMENT I saw and evaluated the patient. I reviewed the resident's note and discussed the case with the resident. I agree with the resident's findings and plan as documented. SUBJECTIVE: OBJECTIVE: ASSESSMENT AND PLAN:
[2019-06-27] MEDS ORDERED: clonazePAM 0.5 MG TABLET PO PRN (10:17)
--- NOTE | 2019-06-27 10:21 | DS ---
Physical Examination Vital Signs: Vital Signs Temperature 98.3 F 06/27/19 06:00 Pulse Rate 56 L 06/27/19 06:00 Respiratory Rate 18 06/27/19 06:00 Blood Pressure 169/58 L 06/27/19 06:00 O2 Sat by Pulse Oximetry (%) 99 06/26/19 21:00 Cardiovascular: Yes: Regular Rate and Rhythm Respiratory: Yes: Regular, CTA Bilaterally Gastrointestinal: Yes: Normal Bowel Sounds, Soft Labs: CBC, BMP 06/27/19 06:50 06/27/19 06:50 Discharge Summary Problems reviewed: Yes Reason For Visit: FAILURE TO THRIVE IN ADULT Current Active Problems FTT (failure to thrive) in adult (Acute) GERD (gastroesophageal reflux disease) (Acute) Type 2 diabetes mellitus with hyperosmolarity without nonketotic hyperglycemic- hyperosmolar coma ([facility]) (Acute) Hospital Course: - Problems (1) FTT (failure to thrive) in adult Assessment/Plan: -PT -fall precautions -Senior Solutions Architect request Code(s): R62.7 - ADULT FAILURE TO THRIVE (2) GERD (gastroesophageal reflux disease) Assessment/Plan: -Pantoprazole Code(s): K21.9 - GASTRO-ESOPHAGEAL REFLUX DISEASE WITHOUT ESOPHAGITIS (3) CML (chronic myelocytic leukemia) Assessment/Plan: -Gleevac -follow up with oncology outpatient Code(s): C92.10 - CHRONIC MYELOID LEUK, BCR/ABL-POSITIVE, NOT ACHIEVE REMIS (4) HTN (hypertension) Assessment/Plan: -Amlodipine, Metoprolol, Clonidine, Losartan -low Na diet Code(s): I10 - ESSENTIAL (PRIMARY) HYPERTENSION (5) Hypothyroidism Assessment/Plan: -Levothyroxine Code(s): E03.9 - HYPOTHYROIDISM, UNSPECIFIED (6) Weakness Assessment/Plan: -PT -fall precaution -Head CT scan shows no evidence of acute intracranial hemorrhage, edema, midline shift, mass effect, or skull fracture, no CT evidence of acute territorial ischemic changes, supratentorial chronic white matter microangiopathic ischemic changes, gliosis Code(s): R53.1 - WEAKNESS (7) COPD (chronic obstructive pulmonary disease) Assessment/Plan: -bronchodilators -keep SpO2 >90% -O2 via NC prn for SOB Code(s): J44.9 - CHRONIC OBSTRUCTIVE PULMONARY DISEASE, UNSPECIFIED (8) Diabetes Assessment/Plan: -BGM ACBK -HgA1c 4.7% -Endocrinology on board Code(s): E11.9 - TYPE 2 DIABETES MELLITUS WITHOUT COMPLICATIONS Qualifiers: Diabetes mellitus type: type 2 Condition: Fair - Instructions Referrals: Bran De Leon MD [Primary Care Provider] - - Home Medications Comprehensive Discharge Medication List: Ambulatory Orders Acetaminophen 650 mg PO PRN 04/20/19 Amlodipine Besylate 10 mg PO DAILY 04/20/19 Clonidine HCl 0.1 mg PO DAILY 04/20/19 Losartan Potassium 50 mg PO DAILY 04/20/19 Melatonin 5 mg PO HS 04/20/19 Metoprolol Succinate [Toprol Xl] 50 mg PO DAILY 04/20/19 Gabapentin [Neurontin -] 400 mg PO BID #60 capsule 06/20/19 Hydrocodone/Acetaminophen [[place] 10-325 Tablet] 1 tab PO QID #120 tablet MDD 4 06/20/19 Imatinib Mesylate [GLEEVEC (Nf) -] 400 mg PO DAILY 06/20/19 Interferon Beta-1A [Avonex Pen] 0.5 ml IM DAILY 06/20/19 Multivit-Min/Iron/Folic/Lutein [Centrum Silver Women Tablet] 1 each PO DAILY 03/30 Omeprazole 20 mg PO DAILY 06/20/19 Albuterol 0.083% Nebulizer [place] [Ventolin 0.083% Nebulizer Soln -] 1 amp NEB QID PRN amp 06/27/19 Ipratropium 0.02% Nebulizer [Atrovent 0.02% Nebulizer -] 1 amp NEB RQID PRN amp 06/27/19 Mirtazapine [Remeron -] 15 mg PO HS #30 tablet 06/27/19 Pramipexole Dihydrochloride [Mirapex -] 0.25 mg PO BID #60 tablet 06/27/19 clonazePAM [Klonopin -] 0.5 mg PO TID PRN #30 tablet MDD 3 06/27/19
[2019-06-27] MEDS: HEPARIN NA (PORCINE) 5,000 UNITS/ML 1ML VIAL SQ SCH (10:44)
[2019-06-27] MEDS: oxyCODONE HCL 5 MG TABLET PO SCH ×2 (10:44→14:00)
[2019-06-27] MEDS: PANTOPRAZOLE 20 MG TABLET PO SCH (10:45)
[2019-06-27] MEDS: cloNIDine HCL 0.1 MG TABLET PO SCH (10:45)
[2019-06-27] MEDS: PRAMIPEXOLE DIHYDROCHLORIDE 0.25 MG TABLET PO SCH (10:45)
[2019-06-27] MEDS: amLODIPine BESYLATE 10 MG TABLET (FP) PO SCH (10:46)
[2019-06-27] MEDS: LOSARTAN POTASSIUM 50 MG TABLET (FP) PO SCH (10:46)
[2019-06-27] MEDS: IMATINIB MESYLATE 400 MG TABLET PO SCH (10:47)
[2019-06-27] MEDS: ACETAMINOPHEN 325 MG TABLET (FP) PO SCH ×2 (10:48→14:00)
[2019-06-27] MEDS: GABAPENTIN 400 MG CAPSULE PO SCH (10:53)
[2019-06-27] MEDS ORDERED: GABAPENTIN 400 MG CAPSULE PO SCH (14:00)
[2019-06-27 14:22] VITALS: PULSE 57
[2019-06-27 14:23] VITALS: BP 142/53; TEMP 98.2
--- NOTE | 2019-06-27 20:01 | PN ---
Progress Note, Physician Chief Complaint: plan for dc home and pharmacy affairs assistant living since insurance not covering snf - Objective Vital Signs: Vital Signs Temperature 98.2 F 06/27/19 14:20 Pulse Rate 57 L 06/27/19 14:20 Respiratory Rate 20 06/27/19 14:20 Blood Pressure 142/53 L 06/27/19 14:20 O2 Sat by Pulse Oximetry (%) 99 06/27/19 09:00 Constitutional: Yes: Calm Eyes: Yes: EOM Intact HENT: Yes: Normocephalic Respiratory: Yes: CTA Bilaterally Gastrointestinal: Yes: Normal Bowel Sounds ...Rectal Exam: Yes: Deferred Genitourinary: Yes: Incontinence Musculoskeletal: Yes: Back Pain, Joint Stiffness, Joint Swelling, Muscle Pain, Muscle Weakness Extremities: Yes: Delayed Capillary Refill Edema: No Neurological: Yes: Alert, Oriented, Unsteady Gait Labs: CBC, BMP 06/27/19 06:50 06/27/19 06:50 Problem List - Problems (1) FTT (failure to thrive) in adult Problems reviewed: Yes Code(s): R62.7 - ADULT FAILURE TO THRIVE (2) GERD (gastroesophageal reflux disease) Problems reviewed: Yes Code(s): K21.9 - GASTRO-ESOPHAGEAL REFLUX DISEASE WITHOUT ESOPHAGITIS (3) Abnormal antibody titer Problems reviewed: Yes Code(s): R76.8 - OTHER SPECIFIED ABNORMAL IMMUNOLOGICAL FINDINGS IN SERUM (4) Acute kidney failure Code(s): N17.9 - ACUTE KIDNEY FAILURE, UNSPECIFIED (5) Anemia Problems reviewed: Yes Code(s): D64.9 - ANEMIA, UNSPECIFIED (6) C. difficile diarrhea Code(s): A04.72 - ENTEROCOLITIS D/T CLOSTRIDIUM DIFFICILE, NOT SPCF RECUR (7) Type 2 diabetes mellitus with hyperosmolarity without nonketotic hyperglycemic-hyperosmolar coma ([facility]) Code(s): E11.00 - TYPE 2 DIAB W HYPROSM W/O NONKET HYPRGLY-HYPROS COMA ([facility]) Assessment/Plan Past Problems Acute renal failure (Resolved) Cutaneous abscess (Resolved) Dehydration (Resolved) Diarrhea (Resolved) Elevated LFTs (Resolved) Fracture of lateral cuneiform bone of left foot (Resolved) Hyperthyroidism (Resolved) Hypomagnesemia (Resolved) Hyponatremia (Resolved) Seizure (Resolved) Abnormal Lab Results 06/27/19 06/27/19 06:50 06:50 Hgb 10.2 L Hct 30.8 L Chloride 111 H Anion Gap 5 L Random Glucose 73 L Calcium 8.4 L ALT 11 L Total Protein 6.1 L Albumin 3.1 L Laboratory Results - last 24 hr 06/27/19 06/27/19 06:50 06:50 WBC 4.8 RBC 3.68 Hgb 10.2 L Hct 30.8 L MCV 83.7 MCH 27.6 MCHC 33.0 RDW 14.4 Plt Count 225 MPV 7.8 D Sodium 142 Potassium 3.8 Chloride 111 H Carbon Dioxide 26 Anion Gap 5 L BUN 11.0 Creatinine 0.9 Est GFR (CKD-EPI)AfAm 73.00 Est GFR (CKD-EPI)NonAf 62.99 Random Glucose 73 L Calcium 8.4 L Total Bilirubin 0.4 AST 15 ALT 11 L Alkaline Phosphatase 85 Total Protein 6.1 L Albumin 3.1 L plan: dc for possible outpatient admission for assisted living family support limited to paper work and proxy follow up outpatient
== END 2019-06-27 17:25 | disposition home or self-care (01) | DRG 92 ==
LOC: JER 18:27 → JERBED 06-25 02:00 → J7W 06-25 22:52
PROVIDERS: ADMIT Internal Medicine; ATTEND Family Medicine
DX: R26.9 Unspecified abnormalities of gait and mobility (principal); C92.10 Chronic myeloid leukemia, BCR/ABL-positive, not having achieved remission; R62.7 Adult failure to thrive; M48.00 Spinal stenosis, site unspecified; G35 Multiple sclerosis; K21.9 Gastro-esophageal reflux disease without esophagitis; J44.9 Chronic obstructive pulmonary disease, unspecified; E05.90 Thyrotoxicosis, unspecified without thyrotoxic crisis or storm; E11.9 Type 2 diabetes mellitus without complications; M48.02 Spinal stenosis, cervical region; G43.909 Migraine, unspecified, not intractable, without status migrainosus; G25.81 Restless legs syndrome; R53.1 Weakness; F41.8 Other specified anxiety disorders; G89.3 Neoplasm related pain (acute) (chronic)
CPT/HCPCS: 36415; 70450-TC; 71045-TC-FY; 80053; 82550; 83036; 84484; 85025; 85027; 93005; 93010; 97116-GP; 97162-GP; 99285-25; J0735; J1644

== ENCOUNTER 2020-02-06 11:28 | Inpatient (IN) | payer OTHER ==
--- NOTE | 2020-02-06 11:52 | PDOC ---
History of Present Illness - General Chief Complaint: Pain, Acute Stated Complaint: ABD PAIN Time Seen by Provider: 02/06/20 11:52 History Source: Patient Exam Limitations: No Limitations - History of Present Illness Initial Comments: 02/06/20 11:55 74yM w PMHx chronic pain syndrome, CML, HTN, COPD (intermittent supplemental O2 when needed), morbid obesity, constipation, cervical stenosis, renal insufficiency, CVA, MS, fibromyalgia, OA presenting from [facility] w 3d persistent severe R chest/ABD/back pain, R leg swelling. Pain not relieved w 10 oxycodone q6, last took this morning. Not exertional/positional. Stopped taking chemotherapy for CML 8mo ago d/t side effects. Last BM 2d ago. Denies fever, n/v, SOB, ABD distension, dysuria. Past History - Medical History Allergies/Adverse Reactions: Allergies Allergy/AdvReac Type Severity Reaction Status Date / Time Sulfa (Sulfonamide Allergy Severe Hives Verified 02/06/20 11:43 Antibiotics) Home Medications: Ambulatory Orders Acetaminophen 650 mg PO PRN 04/20/19 Amlodipine Besylate 10 mg PO DAILY 04/20/19 Clonidine HCl 0.1 mg PO DAILY 04/20/19 Losartan Potassium 50 mg PO DAILY 04/20/19 Melatonin 5 mg PO HS 04/20/19 Metoprolol Succinate [Toprol Xl] 50 mg PO DAILY 04/20/19 Interferon Beta-1A [Avonex Pen] 0.5 ml IM DAILY 06/20/19 Multivit-Min/Iron/Folic/Lutein [Centrum Silver Women Tablet] 1 each PO DAILY 06/20/19 Albuterol 0.083% Nebulizer Franca [Ventolin 0.083% Nebulizer Soln -] 1 amp NEB QID PRN amp 06/27/19 Ipratropium 0.02% Nebulizer [Atrovent 0.02% Nebulizer -] 1 amp NEB RQID PRN amp 06/27/19 Mirtazapine [Remeron -] 15 mg PO HS #30 tablet 06/27/19 Pramipexole Dihydrochloride [Mirapex -] 0.25 mg PO BID #60 tablet 06/27/19 Omeprazole 20 mg PO DAILY #30 cap.sr 10/16/19 hydrOXYzine PAMOATE [Vistaril -] 25 mg PO TID PRN #90 capsule 10/16/19 Gabapentin 400 mg PO QID #120 capsule 12/23/19 Hydrocodone/Acetaminophen [[place] 10-325 Tablet] 1 each PO QID PRN #120 tablet MDD 4 01/13/20 Anemia: No Asthma: Yes Cancer: Yes (leukemia, history of lung [id number]) Cardiac Disorders: No CVA: Yes COPD: Yes CHF: No Dementia: No Diabetes: Yes (NIDDM) GI Disorders: Yes Disorders: No HTN: Yes Hypercholesterolemia: No Liver Disease: Yes (hep c treated) Seizures: Yes Thyroid Disease: Yes (hypo) - Surgical History Abdominal Surgery: Yes (umbilical/ventral hernia) Appendectomy: Yes Cardiac Surgery: No Cholecystectomy: Yes Lung Surgery: Yes (2012 RIGHT lobectomy for lung cancer,NO CHEMO OR RT) Neurologic Surgery: No Orthopedic Surgery: Yes (left knee/ right hip) - Immunization History Immunization Up to Date: Yes - Psycho-Social/Smoking History Smoking Status: No Smoking History: Unknown if ever smoked Have you smoked in the past 12 months: No Number of Cigarettes Smoked Daily: 0 If you are a former smoker, when did you quit?: 30 years ago 'Breaking Loose' booklet given: 10/24/18 - Substance Abuse Hx (Audit-C & DAST Scrn) How often the patient has a drink containing alcohol: Never Score: In Men: 4 or > Positive; In Women: 3 or > Positive: 0 Screen Result (Pos requires Nsg. Audit-10AR): Negative In the last yr the pt used illegal drug/Rx for NonMed reason: No Score: Yes response is considered Positive: 0 Screen Result (Positive result requires Nsg. DAST-10): Negative Review of Systems - Review of Systems Constitutional: No: Chills, Fever HEENTM: No: Eye Pain, Ear Discharge Respiratory: No: Cough, Shortness of Breath Cardiac (ROS): Yes: Chest Pain. No: Lightheadedness ABD/GI: No: Abdominal Distended, Nausea, Vomiting : No: Burning, Dysuria Musculoskeletal: Yes: Back Pain. No: Joint Pain Integumentary: No: Bruising, Dryness Neurological: No: Headache, Seizure Psychiatric: No: Anxiety, Depression Endocrine: No: Intolerance to Cold, Intolerance to Heat Hematologic/Lymphatic: No: Anemia, Blood Clots *Physical Exam - Vital Signs Last Vital Signs Temp Pulse Resp BP Pulse Ox 98.8 F 85 22 H 124/64 02/06/20 11:43 02/06/20 11:43 02/06/20 11:43 02/06/20 11:43 - Physical Exam General Appearance: Yes: Nourished, Appropriately Dressed, Mild Distress, Obese HEENT: positive: EOMI, KAYLEE, Normal Voice, Hearing Grossly Normal. negative: Scleral Icterus (R), Scleral Icterus (L) Respiratory/Chest: positive: Chest Tender (diffuse R>L to touch), Lungs Clear, Normal Breath Sounds. negative: Respiratory Distress, Crackles, Rales, Rhonchi, Stridor, Wheezing Cardiovascular: positive: Regular Rhythm, Regular Rate, S1, S2. negative: Murmur Gastrointestinal/Abdominal: positive: Normal Bowel Sounds, Tender (diffuse R>L to touch), Flat, Soft Musculoskeletal: negative: CVA Tenderness (R), CVA Tenderness (L) Integumentary: positive: Normal Color, Warm. negative: Bruising Neurologic: positive: Fully Oriented, Alert, Normal Mood/Affect, Normal Respo nse, Responsive Heart Score/ECG Review - History History: Slightly suspicious - Electrocardiogram EKG: Normal - Age Age: >/= 65 - Risk Factors Risk Factors Heart Score: No Hx Hypercholesterolemia, Yes Hx Hypertension, No Hx Diabetes, No Smoking History, No Positive family hx of cardiac disease, Yes Hx Obesity Based on the list above the patient has:: 1-2 risk factors - Troponin Troponin: </= normal limit - Score Heart Score - Total: 3 ED Treatment Course - LABORATORY CBC & Chemistry Diagram: 02/06/20 12:40 02/06/20 12:40 Medical Decision Making - Medical Decision Making 02/06/20 12:37 Chest/A/P CTA EKG - NSR, HR 84, QTc 444, no ST changes duplex 2 leg US - no DVT WBC 110 w L shift, Hgb 8.1, Plt 1298, ALP 231 --- 74yM w PMHx chronic pain syndrome, CML, HTN, COPD (intermittent supplemental O2 when needed), morbid obesity, constipation, cervical stenosis, renal insufficiency, CVA, MS, fibromyalgia, OA presenting from [facility] w 3d persistent severe R chest, ABD pain, R leg swelling. Symptoms d/t PE vs chronic pain vs uncontrolled CML. Not ACS (neg trop, NSR) vs pancreatitis (lipase wnl) vs DVT (neg US) Given tylenol, morphine Cleared for IV contrast w CT d/t need to r/o acute pathology, GFR > 30 Anticipate admit m/s for uncontrolled CML, abdominal pain Signed out to night team - pending chest/A/P CT read Discharge - Discharge Information Problems reviewed: Yes Clinical Impression/Diagnosis: CML (chronic myelocytic leukemia) Abdominal pain Qualifiers: Abdominal location: right lower quadrant Qualified Code(s): R10.31 - Right lower quadrant pain Condition: Guarded - Follow up/Referral Referrals: Bran De Leon MD [Primary Care Provider] - - Patient Discharge Instructions - Post Discharge Activity
[2020-02-06] MEDS ORDERED: ACETAMINOPHEN 1000 MG/100 ML VIAL (NON FORMULARY) IVPB ONE (12:21)
[2020-02-06] MEDS ORDERED: ACETAMINOPHEN INJECTION 100 ML IVPB ONE (12:46)
[2020-02-06 13:06] LABS: BASO % 4.7 % (0-2.0); EOS % 0.8 % (0-4.5); HEMATOCRIT 26.3 % (32.4-45.2); HEMOGLOBIN 8.1 GM/dL (10.7-15.3); LYMPH % 5.5 % (8-40); MCHC 30.7 g/dl (32.0-36.0); MEAN CELL VOLUME 81.4 fl (80-96); MONO % 5.4 % (3.8-10.2); NEUT % 83.6 % (42.8-82.8); RBC 3.23 M/mm3 (3.60-5.2); RDW 21.5 % (11.6-15.6)
[2020-02-06 13:12] LABS: PLATELET COUNT 1298 K/MM3 (134-434)
[2020-02-06 13:18] LABS: WHITE BLOOD COUNT 110.8 K/mm3 (4.0-10.0)
[2020-02-06 13:40] LABS: ALBUMIN 3.2 g/dl (3.4-5.0); ALK PHOS 231 U/L (45-117); ANION GAP 8 MMOL/L (8-16); BILIRUBIN,TOTAL 0.3 mg/dL (0.2-1); BLOOD UREA NITROGEN 14.1 mg/dL (7-18); CALCIUM 7.5 mg/dL (8.5-10.1); CHLORIDE 106 mmol/L (98-107); CO2 26 mmol/L (21-32); CREATININE 1.3 mg/dL (0.55-1.3); GLUCOSE,RANDOM 65 mg/dL (74-106); LIPASE 118 U/L (73-393); N-TERMINAL BNP 278.9 pg/ml (5-125); POTASSIUM 4.5 mmol/L (3.5-5.1); SGOT/AST 46 U/L (15-37); SGPT/ALT 21 U/L (13-61); SODIUM 139 mmol/L (136-145); TOT PROT 6.7 g/dl (6.4-8.2)
[2020-02-06 13:48] LABS: ANISOCYTOSIS 2+; MACROCYTOSIS 2+; PLATELET ESTIMATE INCREASED; TEAR DROP CELLS 1+
--- NOTE | 2020-02-06 14:29 | PDOC ---
Documentation entered by Carmelina Sanchez SCRIBE, acting as scribe for Calvin Dooley MD. Calvin Dooley MD: This documentation has been prepared by the Laura russell Xhesika, SCRIBE, under my direction and personally reviewed by me in its entirety. I confirm that the documentation accurately reflects all work, treatment, procedures, and medical decision making performed by me. Attending Attestation - Resident Resident Name: Elio Lira - ED Attending Attestation I have performed the following: I have examined & evaluated the patient, The case was reviewed & discussed with the resident, I agree w/resident's findings & plan, Exceptions are as noted - HPI HPI: 02/06/20 11:54 The patient is a 74 year old female, with a significant past medical history of CML, MS, NIDDM, seizure/pseudoseizure, Thrombocythemia, asthma/COPD, hypothyroidism, OA, prior CVA, CKD3, fibromyalgia, morbid obesity, spinal stenosis,and anxiety/depression, who presents to the emergency department [facility] from [facility] for abdominal pain, R sided chest pain, and leg edema x3days. Pt states she has been taking oxycodone with no relief of symptoms, last dose this morning. She denies SOB, fevers, chills, headache or dizziness. She denies recent dysuria, frequency, urgency or hematuria. Allergies: Sulfa Past surgical history: appendectomy, cholecystectomy, umbilical/ventral hernia Primary Care Physician: Dr. De Leon - Physicial Exam PE: 02/06/20 14:32 See resident exam - Medical Decision Making 02/06/20 14:32 74 F with abdominal pain and R sided chest pain. - Labs, trop - CTA C/A/P Discharge - Discharge Information Problems reviewed: Yes Clinical Impression/Diagnosis: CML (chronic myelocytic leukemia), Splenic infarct Abdominal pain Qualifiers: Abdominal location: right lower quadrant Qualified Code(s): R10.31 - Right lower quadrant pain Condition: Guarded - Follow up/Referral - Patient Discharge Instructions - Post Discharge Activity
[2020-02-06] MEDS ORDERED: morphine CARPU-JECT 4 MG/1 ML DISP.SYRIN IVPUSH ONE ×2 (14:30→19:36)
[2020-02-06] MEDS ORDERED: morphine SULFATE 4 MG/ML VIAL ONE (14:36)
--- NOTE | 2020-02-06 14:54 | EKG ---
Test Reason : Blood Pressure : / mmHG Vent. Rate : 084 BPM Atrial Rate : 084 BPM P-R Int : 134 ms QRS Dur : 082 ms QT Int : 376 ms P-R-T Axes : 077 069 060 degrees QTc Int : 444 ms NORMAL SINUS RHYTHM NORMAL ECG WHEN COMPARED WITH ECG OF 24-JUN-2019 22:34, T WAVE INVERSION NO LONGER EVIDENT IN ANTERIOR LEADS Confirmed by MARGARITA LARKIN MD ([id number]) on 02/06/2020 2:54:14 PM Referred By: Confirmed By:MARGARITA LARKIN MD
[2020-02-06 16:06] LABS: PH,URINE 6.5 (5.0-8.0); URINE APPEARANCE CLEAR; URINE BILIRUBIN NEGATIVE (NEGATIVE); URINE COLOR YELLOW; URINE GLUCOSE (UA) NEGATIVE (NEGATIVE); URINE KETONE NEGATIVE (NEGATIVE); URINE LEUK ESTERASE NEGATIVE (NEGATIVE); URINE NITRITE NEGATIVE (NEGATIVE); URINE PROTEIN NEGATIVE (NEGATIVE)
--- NOTE | 2020-02-06 19:33 | PDOC ---
*Physical Exam - Vital Signs Last Vital Signs Temp Pulse Resp BP Pulse Ox 98.8 F 78 18 128/67 98 02/06/20 11:43 02/06/20 18:00 02/06/20 18:00 02/06/20 18:00 02/06/20 18:00 ED Treatment Course - LABORATORY CBC & Chemistry Diagram: 02/06/20 12:40 02/06/20 12:40 - ADDITIONAL ORDERS Additional order review: Laboratory Results 02/06/20 02/06/20 02/06/20 12:40 12:40 12:40 Sodium 139 Potassium 4.5 Chloride 106 Carbon Dioxide 26 Anion Gap 8 BUN 14.1 Creatinine 1.3 Est GFR (CKD-EPI)AfAm 46.80 Est GFR (CKD-EPI)NonAf 40.38 Random Glucose 65 L Lactic Acid 1.0 Calcium 7.5 L Total Bilirubin 0.3 AST 46 H ALT 21 Alkaline Phosphatase 231 H Creatine Kinase 124 Troponin I < 0.02 B-Natriuretic Peptide 278.9 H Total Protein 6.7 Albumin 3.2 L Lipase 118 Urine Color Yellow Urine Appearance Clear Urine pH 6.5 Ur Specific [place] 1.009 L Urine Protein Negative Urine Glucose (UA) Negative Urine Ketones Negative Urine Blood Negative Urine Nitrite Negative Urine Bilirubin Negative Urine Urobilinogen 1.0 Ur Leukocyte Esterase Negative 02/06/20 12:40 RBC 3.23 L MCV 81.4 MCHC 30.7 L RDW 21.5 H MPV 8.0 Neutrophils % 83.6 H D Lymphocytes % 5.5 L D Monocytes % 5.4 Eosinophils % 0.8 Basophils % 4.7 H D - Medications Given in the ED: ED Medications Discontinued Medications Generic Name Dose Route Start Last Admin Trade Name Saeq PRN Reason Stop Dose Admin Acetaminophen 1,000 mg 02/06/20 12:21 02/06/20 12:40 Ofirmev Injection - IVPB 02/06/20 12:22 1,000 mg ONCE ONE Administration Morphine Sulfate 4 mg 02/06/20 14:30 02/06/20 14:42 Morphine Injection - IVPUSH 02/06/20 14:31 4 mg ONCE ONE Administration Medical Decision Making - Medical Decision Making 02/06/20 12:37 Chest/A/P CTA EKG - NSR, HR 84, QTc 444, no ST changes duplex 2 leg US - no DVT WBC 110 w L shift, Hgb 8.1, Plt 1298, ALP 231 --- 74F w PMHx CML, HTN, COPD (intermittent supplemental O2 prn), morbid obesity, constipation, cervical stenosis, renal insufficiency, CVA, MS, fibromyalgia, OA presenting from [facility] w 3d persistent severe R chest, ABD pain, R leg swelling. Symptoms d/t PE vs chronic pain vs uncontrolled CML. Not ACS (neg trop, NSR) vs pancreatitis (lipase wnl) vs DVT (neg US) Given tylenol, morphine Signed out from day team -chest and abdomen CT: hepatosplenomegaly with several splenic infarcts, that appear acute and/or subacute -CT correlates clinically -spoke with Dr. Toledo, the patient's oncologist - wants the pt admitted -Workup suggested by Dr. Toledo: -LDH, uric acid, PT/PTT, fibrinogen -Allopurinol 300mg -Gentle fluids -von [place]ibrand antigen activity with ristocetin -von [place]ibrand multimer -factor XIII activity -Head CT -possible anticoagulation bolus if coags are WNL -telemetry -> r/o Afib. -Patient admitted to m/s telemetry Discharge - Discharge Information Problems reviewed: Yes Clinical Impression/Diagnosis: CML (chronic myelocytic leukemia) Abdominal pain Qualifiers: Abdominal location: right lower quadrant Qualified Code(s): R10.31 - Right lower quadrant pain Condition: Guarded - Follow up/Referral - Patient Discharge Instructions - Post Discharge Activity
[2020-02-06] MEDS ORDERED: MORPHINE SULFATE 2 MG/ML VIAL ONE (19:36)
--- NOTE | 2020-02-06 23:18 | HP ---
Admitting History and Physical - Primary Care Physician PCP: Justina Menchaca - Admission Chief Complaint: Chest Pain, Abdominal Pain History of Present Illness: This is a 74 y/o female from [facility] with a significant past medical history of: CML (last chemotherapy 8 months ago, d/c- side effects), Chronic Pain Syndrome, HTN, Renal Insufficiency, COPD (O2, prn), CVA, MS, Fibromyalgia, OA. Who presents to the ED with right sided chest pain, abdominal, lumbar pain, right leg swelling for 3 days. Patient reports pain is not relieved with Oxycodone 10mg Q6h. Patient denies fever, chills, cough, SOB, palpitations, N/V, dysuria. 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: CVA, 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 Cardiovascular: Yes: HTN Pulmonary: Yes: Asthma, Cancer, COPD Gastrointestinal: Yes: GERD (using walker at home ) Renal/: Yes: Renal Inusuff Heme/Onc: Yes: Cancer, Other (CML, (leukemia, history of lung [id number])) Psych: Yes: Depression Musculoskeletal: Yes: Osteoarthritis, Other (DDD) Rheumatology: Yes: Rheumatoid Arthritis Endocrine: Yes: Diabetes Mellitus, Hypothyroidism - Past Surgical History Past Surgical History: Yes: Hysterectomy, Joint Replacement, Cholecystectomy Additional Past Surgical History: Right Lobectomy - Advance Directives Advance Directives: Yes: Health Care Proxy, DNR (DNI) - Smoking History Smoking history: Former smoker Have you smoked in the past 12 months: No Aproximately how many cigarettes per day: 0 If you are a former smoker, when did you quit?: 30 years ago - Alcohol/Substance Use Hx Alcohol Use: No History of Substance Use: reports: None - Social History Usual Living Arrangement: Yes: Custodial 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 Travel: No Home Medications - Allergies Allergies/Adverse Reactions: Allergies Allergy/AdvReac Type Severity Reaction Status Date / Time Sulfa (Sulfonamide Allergy Severe Hives Verified 02/06/20 11:43 Antibiotics) - Home Medications Home Medications: Ambulatory Orders Acetaminophen 650 mg PO PRN 04/20/19 Amlodipine Besylate 10 mg PO DAILY 04/20/19 Clonidine HCl 0.1 mg PO DAILY 04/20/19 Losartan Potassium 50 mg PO DAILY 04/20/19 Melatonin 5 mg PO HS 04/20/19 Metoprolol Succinate [Toprol Xl] 50 mg PO DAILY 04/20/19 Interferon Beta-1A [Avonex Pen] 0.5 ml IM DAILY 06/20/19 Multivit-Min/Iron/Folic/Lutein [Centrum Silver Women Tablet] 1 each PO DAILY 06/20/19 Albuterol 0.083% Nebulizer Franca [Ventolin 0.083% Nebulizer Soln -] 1 amp NEB QID PRN amp 06/27/19 Ipratropium 0.02% Nebulizer [Atrovent 0.02% Nebulizer -] 1 amp NEB RQID PRN amp 06/27/19 Mirtazapine [Remeron -] 15 mg PO HS #30 tablet 06/27/19 Pramipexole Dihydrochloride [Mirapex -] 0.25 mg PO BID #60 tablet 06/27/19 Omeprazole 20 mg PO DAILY #30 cap.sr 10/16/19 hydrOXYzine PAMOATE [Vistaril -] 25 mg PO TID PRN #90 capsule 10/16/19 Gabapentin 400 mg PO QID #120 capsule 12/23/19 Hydrocodone/Acetaminophen [[place] 10-325 Tablet] 1 each PO QID PRN #120 tablet MDD 4 01/13/20 Family Medical History Family History: Unable to Obtain Review of Systems - Review of Systems Constitutional: reports: Loss of Appetite Eyes: reports: No Symptoms HENT: reports: No Symptoms Neck: reports: No Symptoms Cardiovascular: reports: Chest Pain Respiratory: reports: No Symptoms Gastrointestinal: reports: Abdominal Pain, Constipation Genitourinary: reports: No Symptoms Breasts: reports: No Symptoms Reported Musculoskeletal: reports: Back Pain Integumentary: reports: Rash (abdominal folds) Neurological: reports: No Symptoms Endocrine: reports: No Symptoms Hematology/Lymphatic: reports: No Symptoms Psychiatric: reports: No Symptoms Pain Intensity: 10 Physical Examination Vital Signs: Vital Signs Temperature 98.8 F 02/06/20 11:43 Pulse Rate 78 02/06/20 19:10 Respiratory Rate 18 02/06/20 19:10 Blood Pressure 145/56 L 02/06/20 19:10 O2 Sat by Pulse Oximetry (%) 98 02/06/20 19:10 Constitutional: Yes: Anxious, Mild Distress, Obese Eyes: Yes: WNL, Conjunctiva Clear, EOM Intact, PERRL HENT: Yes: WNL, Atraumatic, Normocephalic Neck: Yes: WNL, Supple, Trachea Midline Cardiovascular: Yes: Regular Rate and Rhythm, S1, S2 Respiratory: Yes: Diminished (right), SOB on Exertion Gastrointestinal: Yes: Soft, Abdomen, Obese, Hypoactive Bowel Sounds, Tenderness, Tenderness, Epigastrium Renal/: Yes: WNL Breast(s): Yes: WNL Musculoskeletal: Yes: Back Pain Extremities: Yes: WNL Edema: No Peripheral Pulses WNL: Yes Neurological: Yes: Alert, Oriented ...Motor Strength: WNL Psychiatric: Yes: Alert, Oriented Labs: CBC, BMP 02/06/20 12:40 02/06/20 12:40 Laboratory Results - last 24 hr 02/06/20 02/06/20 02/06/20 12:40 12:40 12:40 WBC 110.8 H* RBC 3.23 L Hgb 8.1 L Hct 26.3 L MCV 81.4 MCH 25.0 L MCHC 30.7 L RDW 21.5 H Plt Count 1298 H D MPV 8.0 Absolute Neuts (auto) 92.7 H Neutrophils % 83.6 H D Neutrophils % (Manual) 37.2 L Band Neutrophils % 15.7 Lymphocytes % 5.5 L D Lymphocytes % (Manual) 4.9 L D Monocytes % 5.4 Monocytes % (Manual) 0 L D Eosinophils % 0.8 Eosinophils % (Manual) 1.0 Basophils % 4.7 H D Basophils % (Manual) 3.9 H D Myelocytes % (Man) 21 H D Promyelocytes % (Man) 5 H D Blast Cells % (Manual) 5 H D Nucleated RBC % 2 H Metamyelocytes 7 H D Hypochromia 0 Platelet Estimate Increased Platelet Comment Present Polychromasia 1+ Poikilocytosis 1+ Basophilic Stippling 1+ Anisocytosis 2+ Microcytosis 2+ Macrocytosis 2+ Tear Drop Cells 1+ Schistocytes 1+ PT with INR INR PTT (Actin FS) Fibrinogen Sodium 139 Potassium 4.5 Chloride 106 Carbon Dioxide 26 Anion Gap 8 BUN 14.1 Creatinine 1.3 Est GFR (CKD-EPI)AfAm 46.80 Est GFR (CKD-EPI)NonAf 40.38 Random Glucose 65 L Lactic Acid 1.0 Calcium 7.5 L Phosphorus Magnesium Total Bilirubin 0.3 AST 46 H ALT 21 Alkaline Phosphatase 231 H Creatine Kinase 124 Troponin I < 0.02 B-Natriuretic Peptide 278.9 H Total Protein 6.7 Albumin 3.2 L Triglycerides Cholesterol Total LDL Cholesterol HDL Cholesterol Lipase 118 Urine Color Urine Appearance Urine pH Ur Specific [place] Urine Protein Urine Glucose (UA) Urine Ketones Urine Blood Urine Nitrite Urine Bilirubin Urine Urobilinogen Ur Leukocyte Esterase 02/06/20 02/07/20 02/07/20 12:40 00:35 00:45 WBC RBC Hgb Hct MCV MCH MCHC RDW Plt Count MPV Absolute Neuts (auto) Neutrophils % Neutrophils % (Manual) Band Neutrophils % Lymphocytes % Lymphocytes % (Manual) Monocytes % Monocytes % (Manual) Eosinophils % Eosinophils % (Manual) Basophils % Basophils % (Manual) Myelocytes % (Man) Promyelocytes % (Man) Blast Cells % (Manual) Nucleated RBC % Metamyelocytes Hypochromia Platelet Estimate Platelet Comment Polychromasia Poikilocytosis Basophilic Stippling Anisocytosis Microcytosis Macrocytosis Tear Drop Cells Schistocytes PT with INR INR PTT (Actin FS) Fibrinogen 414.0 Sodium 140 Potassium 5.4 H Chloride 107 Carbon Dioxide 24 Anion Gap 8 BUN 11.9 Creatinine 1.2 Est GFR (CKD-EPI)AfAm 51.56 Est GFR (CKD-EPI)NonAf 44.48 Random Glucose 88 Lactic Acid Calcium 7.9 L Phosphorus 5.0 H Magnesium 1.5 L Total Bilirubin 0.5 AST 64 H ALT 22 Alkaline Phosphatase 241 H Creatine Kinase Troponin I 0.03 B-Natriuretic Peptide Total Protein 6.6 Albumin 3.1 L Triglycerides 167 H Cholesterol 137 Total LDL Cholesterol 77 HDL Cholesterol 33 L Lipase Urine Color Yellow Urine Appearance Clear Urine pH 6.5 Ur Specific [place] 1.009 L Urine Protein Negative Urine Glucose (UA) Negative Urine Ketones Negative Urine Blood Negative Urine Nitrite Negative Urine Bilirubin Negative Urine Urobilinogen 1.0 Ur Leukocyte Esterase Negative 02/07/20 00:45 WBC RBC Hgb Hct MCV MCH MCHC RDW Plt Count MPV Absolute Neuts (auto) Neutrophils % Neutrophils % (Manual) Band Neutrophils % Lymphocytes % Lymphocytes % (Manual) Monocytes % Monocytes % (Manual) Eosinophils % Eosinophils % (Manual) Basophils % Basophils % (Manual) Myelocytes % (Man) Promyelocytes % (Man) Blast Cells % (Manual) Nucleated RBC % Metamyelocytes Hypochromia Platelet Estimate Platelet Comment Polychromasia Poikilocytosis Basophilic Stippling Anisocytosis Microcytosis Macrocytosis Tear Drop Cells Schistocytes PT with INR 13.70 H INR 1.16 H PTT (Actin FS) 33.3 Fibrinogen Sodium Potassium Chloride Carbon Dioxide Anion Gap BUN Creatinine Est GFR (CKD-EPI)AfAm Est GFR (CKD-EPI)NonAf Random Glucose Lactic Acid Calcium Phosphorus Magnesium Total Bilirubin AST ALT Alkaline Phosphatase Creatine Kinase Troponin I B-Natriuretic Peptide Total Protein Albumin Triglycerides Cholesterol Total LDL Cholesterol HDL Cholesterol Lipase Urine Color Urine Appearance Urine pH Ur Specific [place] Urine Protein Urine Glucose (UA) Urine Ketones Urine Blood Urine Nitrite Urine Bilirubin Urine Urobilinogen Ur Leukocyte Esterase Intake & Output 02/04/20 02/05/20 02/06/20 02/07/20 23:59 23:59 23:59 23:59 Weight 82.554 kg Imaging - Results Cat Scan: Pending (Brain), Report Reviewed, Image Reviewed EKG: Image Reviewed Problem List - Problems (1) Chest pain Assessment/Plan: r/o ACS HEART Score 4-5 Cardiac Monitoring Serial Enzymes neg x1 Chest CTA reviewed- neg PE, bibasilar opacities likely atelectasis, less likely infiltrates, chronic multilevel thoracolumbar vertebral body compression fractur es EKG reviewed- NSR no ST or TWI Appreciate Cardiology consult Code(s): R07.9 - CHEST PAIN, UNSPECIFIED Qualifiers: Chest pain type: intercostal pain Qualified Code(s): R07.82 - Intercostal pain (2) Splenic infarct Assessment/Plan: CTAP- splenic infarcts acute vs subacute, biliary tract dilatation, remainder of exam no obvious interval change Awaiting INR/PTT studies Brain CT-pending Will start on Heparin Protocol Morphine, ofirmev prn Dr [place] was consulted and aware per ED resident Monitor CBC, CMP Monitor vital O2 Gentle IVF Code(s): D73.5 - INFARCTION OF SPLEEN (3) Abdominal pain Assessment/Plan: see above Code(s): R10.9 - UNSPECIFIED ABDOMINAL PAIN Qualifiers: Abdominal location: right lower quadrant Qualified Code(s): R10.31 - Right lower quadrant pain (4) CML (chronic myelocytic leukemia) Assessment/Plan: monitor CBC Appreciate Oncology consult Monitor vitals Code(s): C92.10 - CHRONIC MYELOID LEUK, BCR/ABL-POSITIVE, NOT ACHIEVE REMIS (5) Anemia Assessment/Plan: stable Hgb 8.1 at baseline Will transfuse if Hgb < 7.0 Appreciate Hematology consult Monitor CBC Monitor vitals Code(s): D64.9 - ANEMIA, UNSPECIFIED (6) HTN (hypertension) Assessment/Plan: stable Monitor BP Continue home meds with parameters Monitor renal function Code(s): I10 - ESSENTIAL (PRIMARY) HYPERTENSION (7) Hypothyroidism Assessment/Plan: stable Continue Levothyroxine TSH in am Code(s): E03.9 - HYPOTHYROIDISM, UNSPECIFIED (8) Diabetes Assessment/Plan: Stable BGMs ISS when diet resumed Monitor CMP Hold home meds Code(s): E11.9 - TYPE 2 DIABETES MELLITUS WITHOUT COMPLICATIONS Qualifiers: Diabetes mellitus type: type 2 (9) Multiple sclerosis Assessment/Plan: on Avenox inj weekly Fall Precautions Monitor vitals Code(s): G35 - MULTIPLE SCLEROSIS (10) Fibromyalgia Assessment/Plan: stable Continue Gabapentin Code(s): M79.7 - FIBROMYALGIA (11) GERD (gastroesophageal reflux disease) Assessment/Plan: stable Continue PPI Code(s): K21.9 - GASTRO-ESOPHAGEAL REFLUX DISEASE WITHOUT ESOPHAGITIS (12) Cervical stenosis of spine Assessment/Plan: Ofirmev, Morphine prn Fall Precautions Code(s): M48.02 - SPINAL STENOSIS, CERVICAL REGION (13) History of CVA (cerebrovascular accident) Assessment/Plan: Will continue to monitor and treat with interventions accordingly Fall Precautions Aspiration Precautions Code(s): Z86.73 - PRSNL HX OF TIA (TIA), AND CEREB INFRC W/O RESID DEFICITS (14) Obesity (BMI 30-39.9) Assessment/Plan: Counseled on weight reduction Code(s): E66.9 - OBESITY, UNSPECIFIED Assessment/Plan This is a 74 y/o female from [facility] with a significant past medical history of: CML (last chemotherapy 8 months ago, d/c- side effects), Chronic Pain Syndrome, HTN, Renal Insufficiency, COPD (O2, prn), CVA, MS, Fibromyalgia, OA. Admitted to Telemetry for Chest Pain, Abdominal Pain, Splenic Infarcts for further evaluation of their emergent condition. Plan: See Problem List FEN D50.45%NS@60ml/hr Replete lytes prn NPO DVT ppx OOB SCDs Heparin Protocol Code Status: DNR/DNI Dispo: Requires Inpatient Care Visit type - Medication Review Med list reviewed for High Risk Meds patients 65 and older: Yes - Emergency Visit Emergency Visit: Yes ED Registration Date: 02/06/20 Care time: The patient presented to the Emergency Department on the above date and was hospitalized for further evaluation of their emergent condition. - New Patient This patient is new to me today: Yes Date on this admission: 02/06/20 - Critical Care Critical Care patient: No
[2020-02-07] MEDS ORDERED: HYDROmorphone HCl 2 MG/ML VIAL ONE (00:19)
[2020-02-07] MEDS ORDERED: HYDROmorphone HCL CARPU-JECT 2 MG/1 ML DISP.SYRIN IVPB ONE (00:19)
[2020-02-07] MEDS ORDERED: HYDROmorphone HCl 2 MG/ML VIAL IVPB ONE (00:19)
[2020-02-07 01:06] LABS: INR 1.16 (0.83-1.09); PROTHROMBIN TIME (PATIENT) 13.7 SEC (9.7-13.0)
[2020-02-07 01:08] LABS: ACTIVATED PTT 33.3 SECONDS (25.2-36.5)
[2020-02-07 01:22] LABS: ALBUMIN 3.1 g/dl (3.4-5.0); BILIRUBIN,TOTAL 0.5 mg/dL (0.2-1); BLOOD UREA NITROGEN 11.9 mg/dL (7-18); CALCIUM 7.9 mg/dL (8.5-10.1); CREATININE 1.2 mg/dL (0.55-1.3); MAGNESIUM 1.5 mg/dL (1.8-2.4); POTASSIUM 5.4 mmol/L (3.5-5.1); TOT PROT 6.6 g/dl (6.4-8.2)
[2020-02-07] MEDS: ACETAMINOPHEN 1000 MG/100 ML VIAL (NON FORMULARY) IVPB PRN ×2 (04:32→20:59)
[2020-02-07] MEDS ORDERED: HEPARIN NA (PORCINE) 5,000 UNITS/ML 1ML VIAL IVPUSH PRN ×3 (06:58→22:28)
[2020-02-07] MEDS ORDERED: HEPARIN INFUSION - 25,000 UNITS/500 ML INFUS.BAG IVPB SCH (07:00)
[2020-02-07] MEDS ORDERED: DEXTROSE 5%-0.45% SALINE 1,000 ML IV SCH (07:30)
[2020-02-07] MEDS ORDERED: morphine SULFATE 4 MG/ML VIAL IVPUSH PRN (07:36)
[2020-02-07] MEDS ORDERED: ONDANSETRON 4 MG/2 ML VIAL IVPUSH PRN ×2 (07:37→22:28)
[2020-02-07] MEDS ORDERED: DEXTROSE 5%-NORMAL SALINE 1,000 ML IV SCH (08:00)
[2020-02-07 08:45] LABS: BASO % 3.4 % (0-2.0); EOS % 0.9 % (0-4.5); HEMATOCRIT 24.5 % (32.4-45.2); HEMOGLOBIN 7.6 GM/dL (10.7-15.3); LYMPH % 5.6 % (8-40); MCH 24.6 pg (25.7-33.7); MCHC 30.9 g/dl (32.0-36.0); MEAN CELL VOLUME 79.7 fl (80-96); MEAN PLT VOLUME 7.7 fl (7.5-11.1); MONO % 5.1 % (3.8-10.2); RBC 3.08 M/mm3 (3.60-5.2); RDW 21.2 % (11.6-15.6)
[2020-02-07 08:46] LABS: PLATELET COUNT 1277 K/MM3 (134-434)
[2020-02-07 09:06] LABS: WHITE BLOOD COUNT 109.6 K/mm3 (4.0-10.0)
[2020-02-07 09:15] LABS: ALBUMIN 2.8 g/dl (3.4-5.0); BILIRUBIN,TOTAL 0.4 mg/dL (0.2-1); BLOOD UREA NITROGEN 11.1 mg/dL (7-18); CALCIUM 7.9 mg/dL (8.5-10.1); CREATININE 1.1 mg/dL (0.55-1.3); MAGNESIUM 1.5 mg/dL (1.8-2.4); PHOSPHOROUS 5.4 mg/dL (2.5-4.9); POTASSIUM 4.2 mmol/L (3.5-5.1); TOT PROT 5.9 g/dl (6.4-8.2); URIC ACID 8.8 mg/dL (2.6-7.2)
[2020-02-07] MEDS ORDERED: HYDROmorphone HCl 2 MG/ML VIAL IVPB PRN (09:49)
[2020-02-07] MEDS ORDERED: ALLOPURINOL 300 MG TABLET (FP) PO SCH (10:00)
[2020-02-07] MEDS ORDERED: LOSARTAN POTASSIUM 50 MG TABLET (FP) PO SCH (10:00)
[2020-02-07] MEDS ORDERED: PANTOPRAZOLE SODIUM 40 MG VIAL IVPUSH SCH (10:00)
[2020-02-07] MEDS ORDERED: ASPIRIN 81 MG CHEWABLE TABLETS PO SCH (10:00)
[2020-02-07] MEDS ORDERED: FUROSEMIDE 20 MG TABLET (FP) PO SCH (10:00)
[2020-02-07] MEDS ORDERED: amLODIPine BESYLATE 10 MG TABLET (FP) PO SCH (10:00)
[2020-02-07] MEDS ORDERED: MAGNESIUM 1GM/D5W 100ML - 100 ML IVPB IVPB ONE (10:00)
[2020-02-07] MEDS: oxyCODONE HCL 5 MG TABLET PO PRN ×2 (11:12→22:08)
[2020-02-07] MEDS: GABAPENTIN 400 MG CAPSULE PO SCH ×4 (11:15→22:08)
[2020-02-07] MEDS: PRAMIPEXOLE DIHYDROCHLORIDE 0.125 MG TABLET PO SCH ×2 (11:16→22:08)
[2020-02-07 11:46] LABS: ANISOCYTOSIS 1+; MACROCYTOSIS 0; PLATELET ESTIMATE INCREASED
[2020-02-07] MEDS: hydrOXYzine PAMOATE 25 MG CAPSULE (FP) PO PRN (11:54)
--- NOTE | 2020-02-07 13:41 | PN ---
Progress Note, Physician Chief Complaint: AWAKE ALERT ANXIOUS EVENTS AND NOTES REVIEWED - Current Medication List Current Medications: Active Medications Acetaminophen (Ofirmev Injection -) 1,000 mg IVPB Q6H PRN PRN Reason: PAIN LEVEL 6-10 Stop: 02/07/20 23:24 Last Admin: 02/07/20 04:32 Dose: 1,000 mg Documented by: Allopurinol (Zyloprim -) 300 mg PO DAILY [facility] Last Admin: 02/07/20 11:17 Dose: 300 mg Documented by: Amlodipine Besylate (Norvasc -) 10 mg PO DAILY [facility] Last Admin: 02/07/20 11:17 Dose: 10 mg Documented by: Aspirin (Asa -) 81 mg PO DAILY [facility] Last Admin: 02/07/20 11:17 Dose: 81 mg Documented by: Furosemide (Lasix -) 20 mg PO DAILY [facility] Last Admin: 02/07/20 11:12 Dose: 20 mg Documented by: Gabapentin (Neurontin -) 400 mg PO QID [facility] Last Admin: 02/07/20 11:15 Dose: 400 mg Documented by: Heparin Sodium (Porcine) (Heparin -) 1,000 unit IVPUSH PRN PRN PRN Reason: Heparin Heparin Sodium (Porcine) (Heparin -) 5,000 unit IVPUSH PRN PRN PRN Reason: Heparin Hydromorphone HCl (Dilaudid Vial -) 1 mg IVPB Q4H PRN PRN Reason: PAIN LEVEL 7 - 10 Hydroxyzine Pamoate (Vistaril -) 25 mg PO Q6H PRN PRN Reason: FOR ITCHING Last Admin: 02/07/20 11:54 Dose: 25 mg Documented by: Heparin Sodium/Dextrose (Heparin Infusion -) 25,000 units in 500 mls @ 20 mls /hr IVPB TITR [facility]; Protocol Last Admin: 02/07/20 09:22 Dose: 1,000 units/hr, 20 mls/hr Documented by: Dextrose/Sodium Chloride (D5-Ns -) 1,000 mls @ 75 mls/hr IV ASDIR [facility] Last Admin: 02/07/20 09:35 Dose: 75 mls/hr Documented by: Losartan Potassium (Cozaar -) 100 mg PO DAILY [facility] Last Admin: 02/07/20 11:18 Dose: 100 mg Documented by: Morphine Sulfate (Morphine Sulfate) 4 mg IVPUSH Q6H PRN PRN Reason: PAIN LEVEL 6-10 Ondansetron HCl (Zofran Injection) 4 mg IVPUSH Q6H PRN PRN Reason: NAUSEA AND/OR VOMITING Oxycodone HCl (Roxicodone -) 10 mg PO Q6H PRN PRN Reason: PAIN LEVEL 6-10 Last Admin: 02/07/20 11:12 Dose: 10 mg Documented by: Pantoprazole Sodium (Protonix Iv) 40 mg IVPUSH DAILY [facility] Last Admin: 02/07/20 11:18 Dose: 40 mg Documented by: Pramipexole Dihydrochloride (Mirapex -) 0.125 mg PO BID [facility] Last Admin: 02/07/20 11:16 Dose: 0.125 mg Documented by: - Objective Vital Signs: Vital Signs Temperature 99.1 F 02/07/20 05:49 Pulse Rate 80 02/07/20 05:49 Respiratory Rate 20 02/07/20 05:49 Blood Pressure 124/53 L 02/07/20 05:49 O2 Sat by Pulse Oximetry (%) 91 L 02/07/20 05:49 Constitutional: Yes: Moderate Distress Cardiovascular: Yes: Pulse Irregular Respiratory: Yes: Diminished, On Nasal O2 Gastrointestinal: Yes: Soft, Abdomen, Obese Genitourinary: Yes: Incontinence Musculoskeletal: Yes: Muscle Weakness Edema: Yes Neurological: Yes: Pre-Existing Deficit, Weakness ...Motor Strength: LLE, RLE Psychiatric: Yes: Other Labs: CBC, BMP 02/07/20 07:48 02/07/20 07:48 INR, PTT INR 1.16 (0.83-1.09) H 02/07/20 00:45 Fibrinogen 414.0 mg/dL (238-498) 02/07/20 00:35 Problem List - Problems (1) Abdominal pain Code(s): R10.9 - UNSPECIFIED ABDOMINAL PAIN Qualifiers: Abdominal location: right lower quadrant Qualified Code(s): R10.31 - Right lower quadrant pain (2) Anemia Code(s): D64.9 - ANEMIA, UNSPECIFIED (3) CML (chronic myelocytic leukemia) Code(s): C92.10 - CHRONIC MYELOID LEUK, BCR/ABL-POSITIVE, NOT ACHIEVE REMIS (4) History of CVA (cerebrovascular accident) Code(s): Z86.73 - PRSNL HX OF TIA (TIA), AND CEREB INFRC W/O RESID DEFICITS (5) HTN (hypertension) Code(s): I10 - ESSENTIAL (PRIMARY) HYPERTENSION (6) Osteoarthritis Code(s): M19.90 - UNSPECIFIED OSTEOARTHRITIS, UNSPECIFIED SITE Qualifiers: Osteoarthritis location: unspecified site (7) Splenic infarct Code(s): D73.5 - INFARCTION OF SPLEEN Assessment/Plan CLEAR DIET STARTED AWAIT ONCOLOGY EVAL IV FLUIDS PAIN CONTROL MONITOR ON TELEMETRY DNR/DNI TRANSFUSE PRBC NEEDED MONITOR LABS
--- NOTE | 2020-02-07 17:14 | CONSULT ---
Consult Consult Specialty:: Hematology Referred by:: Medicine Reason for Consultation:: CML - History of Present Illness Chief Complaint: Patient with known history of CML, resident of assisted living facility, referred to ED for ongoing uncontrolled pain - 3 days - and found on evaluation for have significant thrombocytosis and neutrophilia, with imaging revealing splenomegaly, with asubacute infarcts. History of Present Illness: Significant medical history, including chronic pain syndrome, HTN, Renal Insufficiency, COPD (O2, prn), CVA, MS, Fibromyalgia, OA. Known to us previously when she was being managed for pseudoseizures, et al. - History Source History Provided By: Patient, Medical Record Limitations to Obtaining History: Poor Historian - Past Medical History PUMPER BREWERY: Yes: CVA, 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 Cardio/Vascular: Yes: HTN Pulmonary: Yes: Asthma, Cancer, COPD Gastrointestinal: Yes: GERD (using walker at home ) Renal/: Yes: Renal Inusuff Psych: Yes: Depression Musculoskeletal: Yes: Osteoarthritis, Other (DDD) Rheumatology: Yes: Rheumatoid Arthritis Endocrine: Yes: Diabetes Mellitus, Hypothyroidism Additional Medical History: as in HPI, morbidly obese - Past Surgical History Past Surgical History: Yes: Hysterectomy, Joint Replacement, Cholecystectomy - Alcohol/Substance Use Hx Alcohol Use: No History of Substance Use: reports: None - Smoking History Smoking history: Former smoker Have you smoked in the past 12 months: No Aproximately how many cigarettes per day: 0 If you are a former smoker, when did you quit?: 30 years ago - Social History Usual Living Arrangement: Alone 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 Travel: No Home Medications - Allergies Allergies/Adverse Reactions: Allergies Allergy/AdvReac Type Severity Reaction Status Date / Time Sulfa (Sulfonamide Allergy Severe Hives Verified 02/06/20 11:43 Antibiotics) - Home Medications Home Medications: Ambulatory Orders Acetaminophen 650 mg PO PRN 04/20/19 Amlodipine Besylate 10 mg PO DAILY 04/20/19 Clonidine HCl 0.1 mg PO DAILY 04/20/19 Losartan Potassium 50 mg PO DAILY 04/20/19 Melatonin 5 mg PO HS 04/20/19 Metoprolol Succinate [Toprol Xl] 50 mg PO DAILY 04/20/19 Interferon Beta-1A [Avonex Pen] 0.5 ml IM DAILY 06/20/19 Multivit-Min/Iron/Folic/Lutein [Centrum Silver Women Tablet] 1 each PO DAILY 06/20/19 Albuterol 0.083% Nebulizer Franca [Ventolin 0.083% Nebulizer Soln -] 1 amp NEB QID PRN amp 06/27/19 Ipratropium 0.02% Nebulizer [Atrovent 0.02% Nebulizer -] 1 amp NEB RQID PRN amp 06/27/19 Mirtazapine [Remeron -] 15 mg PO HS #30 tablet 06/27/19 Pramipexole Dihydrochloride [Mirapex -] 0.25 mg PO BID #60 tablet 06/27/19 Omeprazole 20 mg PO DAILY #30 cap.sr 10/16/19 hydrOXYzine PAMOATE [Vistaril -] 25 mg PO TID PRN #90 capsule 10/16/19 Gabapentin 400 mg PO QID #120 capsule 12/23/19 Hydrocodone/Acetaminophen [[place] 10-325 Tablet] 1 each PO QID PRN #120 tablet MDD 4 01/13/20 Review of Systems - Review of Systems Constitutional: reports: Lethargy, Loss of Appetite, Malaise Eyes: reports: No Symptoms Cardiovascular: reports: Chest Pain. denies: Shortness of Breath Respiratory: denies: Cough Gastrointestinal: reports: Abdominal Pain, Constipation Neurological: reports: Pre-Existing Deficit Hematology/Lymphatic: denies: Easily Bruised, Excessive Bleeding Physical Exam Vital Signs: Vital Signs Temperature 98.3 F 02/07/20 10:00 Pulse Rate 72 02/07/20 10:00 Respiratory Rate 18 02/07/20 10:00 Blood Pressure 131/56 L 02/07/20 10:00 O2 Sat by Pulse Oximetry (%) 91 L 02/07/20 09:00 Constitutional: Yes: Well Nourished, Anxious, Obese Eyes: Yes: Conjunctiva Clear HENT: Yes: Atraumatic, Normocephalic Neck: Yes: Supple, Trachea Midline. No: Decreased ROM, Lymphadenopathy Cardiovascular: Yes: Regular Rate and Rhythm, Gallop, S1, S2 Respiratory: Yes: Regular, CTA Bilaterally Gastrointestinal: Yes: Normal Bowel Sounds, Abdomen, Obese Edema: No Neurological: Yes: Alert, Oriented, Cran Nerves II-XII Intact Psychiatric: Yes: Alert, Oriented, Agitated Labs: CBC, BMP 02/07/20 07:48 02/07/20 07:48 Assessment/Plan Known CML, with history of poor compliance with TKI therapy, previously on Gleevec, but likely not in last several months. Will initiate cytoreduction with HU in interim. Concerned primarily about marked thrombocytosis. Neutrophilia with expected left shift noted. Empric anticoagulation for splenic infarcts not unreasonable, but with close observation - hemorrhagic risk theoretically - with possibility of acquired VWD with her marked thrombocytosis. TLS remains a concern. Continue allopurinol. Daily uric acid, LDH, with BMP. Will start imatinib or alternate TKI when available.
[2020-02-07] MEDS: HYDROXYUREA 500 MG CAPSULE PO SCH (18:05)
[2020-02-07] MEDS ORDERED: PT OWN MED DRAWER 7, Y5N ONE ×2 (18:54→21:14)
[2020-02-07] MEDS ORDERED: ACETAMINOPHEN 1000 MG/100 ML VIAL (NON FORMULARY) IVPB PRN (22:28)
[2020-02-07] MEDS: DEXTROSE 5%-NORMAL SALINE 1,000 ML IV SCH (22:30)
[2020-02-07] MEDS: HEPARIN INFUSION - 25,000 UNITS/500 ML INFUS.BAG IVPB SCH (22:30)
[2020-02-08] MEDS: morphine SULFATE 4 MG/ML VIAL IVPUSH PRN ×3 (03:57→17:58)
[2020-02-08] MEDS: DEXTROSE 5%-NORMAL SALINE 1,000 ML IV SCH ×2 (04:05→23:18)
--- NOTE | 2020-02-08 05:52 | CON.CARD ---
Consult Consult Specialty:: Cardiology Referred by:: Dr. De La Rosa Reason for Consultation:: chest pain - History of Present Illness Chief Complaint: Diffuse body pain History of Present Illness: 74 y/o female from [facility] with a significant past medical history of: CML (last chemotherapy 8 months ago, d/c- side effects), Chronic Pain Syndrome, HTN, Renal Insufficiency, COPD (O2, prn), CVA, MS, Fibromyalgia, OA. Who presents to the ED with right sided chest pain, abdominal, lumbar pain, right leg swelling for 3 days. Patient reports pain is not relieved with Oxycodone 10mg Q6h. Patient denies fever, chills, cough, SOB, palpitations, N/V, dysuria. 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: CVA, 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 Cardiovascular: Yes: HTN Pulmonary: Yes: Asthma, Cancer, COPD Gastrointestinal: Yes: GERD (using walker at home ) Renal/: Yes: Renal Inusuff Heme/Onc: Yes: Cancer, Other (CML, (leukemia, history of lung [id number])) Psych: Yes: Depression Musculoskeletal: Yes: Osteoarthritis, Other (DDD) Rheumatology: Yes: Rheumatoid Arthritis Endocrine: Yes: Diabetes Mellitus, Hypothyroidism - Past Surgical History Past Surgical History: Yes: Hysterectomy, Joint Replacement, Cholecystectomy Additional Past Surgical History: CTA chest done negative for pulmonary embolism but with splenic infarcts. CBC with MARKED THROMBOCYTOSIS. Seen by Heme. Started on UFH gtts for splenic infarcts and thrombocytosis. Also receiving hydroxyurea. She currently denies CP/SOB/palps. BECAME TEARFUL AND STATED SHE HAS BEEN SICK FOR LONG TIME AND NO LONGER WANTS TO SUFFER. SAID SHE PRAYS TO PEACEFULLY. 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: Yes: CVA, 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 Cardio/Vascular: Yes: HTN Pulmonary: Yes: Asthma, Cancer, COPD Gastrointestinal: Yes: GERD (using walker at home ) Renal/: Yes: Renal Inusuff Psych: Yes: Depression Musculoskeletal: Yes: Osteoarthritis, Other (DDD) Rheumatology: Yes: Rheumatoid Arthritis Endocrine: Yes: Diabetes Mellitus, Hypothyroidism Additional Medical History: as in HPI, morbidly obese - Past Surgical History Past Surgical History: Yes: Hysterectomy, Joint Replacement, Cholecystectomy - Alcohol/Substance Use Hx Alcohol Use: No History of Substance Use: reports: None - Smoking History Smoking history: Former smoker Have you smoked in the past 12 months: No Aproximately how many cigarettes per day: 0 If you are a former smoker, when did you quit?: 30 years ago - Social History Usual Living Arrangement: Alone 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 Travel: No Home Medications - Allergies Allergies/Adverse Reactions: Allergies Allergy/AdvReac Type Severity Reaction Status Date / Time Sulfa (Sulfonamide Allergy Severe Hives Verified 02/06/20 11:43 Antibiotics) - Home Medications Home Medications: Ambulatory Orders Acetaminophen 650 mg PO PRN 04/20/19 Amlodipine Besylate 10 mg PO DAILY 04/20/19 Clonidine HCl 0.1 mg PO DAILY 04/20/19 Losartan Potassium 50 mg PO DAILY 04/20/19 Melatonin 5 mg PO HS 04/20/19 Metoprolol Succinate [Toprol Xl] 50 mg PO DAILY 04/20/19 Interferon Beta-1A [Avonex Pen] 0.5 ml IM DAILY 06/20/19 Multivit-Min/Iron/Folic/Lutein [Centrum Silver Women Tablet] 1 each PO DAILY Albuterol 0.083% Nebulizer Franca [Ventolin 0.083% Nebulizer Soln -] 1 amp NEB QID PRN amp 06/27/19 Ipratropium 0.02% Nebulizer [Atrovent 0.02% Nebulizer -] 1 amp NEB RQID PRN amp 06/27/19 Mirtazapine [Remeron -] 15 mg PO HS #30 tablet 06/27/19 Pramipexole Dihydrochloride [Mirapex -] 0.25 mg PO BID #60 tablet 06/27/19 Omeprazole 20 mg PO DAILY #30 cap.sr 10/16/19 hydrOXYzine PAMOATE [Vistaril -] 25 mg PO TID PRN #90 capsule 10/16/19 Gabapentin 400 mg PO QID #120 capsule 12/23/19 Hydrocodone/Acetaminophen [[place] 10-325 Tablet] 1 each PO QID PRN #120 tablet MDD 4 01/13/20 Family Medical History Family History: Unremarkable (NOT PERTINENT TO THIS PRESENTATION) - Risk Factors Known Risk Factors: Yes: Hypercholesterolemia, Physical Inactivity, Smoking Vital Signs: Vital Signs Temperature 97.2 F L 02/08/20 00:00 Pulse Rate 71 02/08/20 00:00 Respiratory Rate 18 02/08/20 00:00 Blood Pressure 128/62 02/08/20 00:00 O2 Sat by Pulse Oximetry (%) 92 L 02/07/20 22:37 Constitutional: Yes: No Distress, Calm Eyes: Yes: Conjunctiva Clear Respiratory: Yes: CTA Bilaterally Gastrointestinal: Yes: Soft, Abdomen, Obese (NT) JVD: No Carotid Bruit: No PMI: Non-Displaced Heart Sounds: Yes: S1, S2 (RRR) Edema: No Neurological: Yes: Alert, Oriented ...Motor Strength: WNL - Other Data Labs, Other Data: CBC, BMP 02/07/20 07:48 02/07/20 07:48 INR, PTT INR 1.16 (0.83-1.09) H 02/07/20 00:45 Fibrinogen 414.0 mg/dL (238-498) 02/07/20 00:35 Laboratory Tests 02/07/20 02/08/20 02/08/20 07:48 05:59 05:59 WBC 109.6 H* Hgb 7.6 L Hct 24.5 L Plt Count 1277 H PTT (Actin FS) 55.7 H Sodium 140 Potassium 4.5 Creatinine 1.[address] changes Echo: Other (echo 03/2018: nl lv/rv, no sig valve path) Assessment/Plan IMP: CML with marked thrombocytosis and splenic infarcts Atypical CP History of CVA Chronic HTN Multiple comorbidities REC: 1. CML/thrombocytosis/splenic infarcts: -On hydroxyurea as per Heme, further management as per Heme -Cautious AC with UFH gtts for splenic infarcts, theoretical risk of hemorrhagic transformation noted. -Tele x 24 hours to r/o occult AFIB as potential etiology of infarcts. -If tele unremarkable, would d/c 02/08 2. Atypical CP: -TnI negative x2, ECG without ischemic changes, CTA negative for PE; low suspicion for ACS. Likely MSK -Echo in AM 3. History of CVA: -stable -On heparin gtts for possible hyperviscosity syndrome -On tele to r/o occult PAF 4. HTN: -Stable, continue home meds 5. Multiple comorbidities: -Patient tearful, depressed and has expressed wishes to . -Advanced directives--> DNR/DNI -consider palliative care consultation and comfort care measures but would do so in consultation with ONC and with consideration of her overall prognosis
[2020-02-08] MEDS: HYDROXYUREA 500 MG CAPSULE PO SCH ×2 (06:05→17:57)
[2020-02-08 08:39] LABS: ALBUMIN 2.8 g/dl (3.4-5.0); BILIRUBIN,TOTAL 0.4 mg/dL (0.2-1); BLOOD UREA NITROGEN 8.5 mg/dL (7-18); CALCIUM 7.6 mg/dL (8.5-10.1); CREATININE 1.1 mg/dL (0.55-1.3); MAGNESIUM 1.8 mg/dL (1.8-2.4); POTASSIUM 4.5 mmol/L (3.5-5.1); TOT PROT 6.2 g/dl (6.4-8.2)
--- NOTE | 2020-02-08 08:50 | PN ---
Progress Note, Physician Chief Complaint: AWAKE ALERT FEELING BETTER - Current Medication List Current Medications: Active Medications Allopurinol (Zyloprim -) 300 mg PO DAILY [facility] Amlodipine Besylate (Norvasc -) 10 mg PO DAILY [facility] Aspirin (Asa -) 81 mg PO DAILY [facility] Furosemide (Lasix -) 20 mg PO DAILY [facility] Gabapentin (Neurontin -) 400 mg PO QID [facility] Heparin Sodium (Porcine) (Heparin -) 1,000 unit IVPUSH PRN PRN PRN Reason: Heparin Heparin Sodium (Porcine) (Heparin -) 5,000 unit IVPUSH PRN PRN PRN Reason: Heparin Hydromorphone HCl (Dilaudid Vial -) 1 mg IVPB Q4H PRN PRN Reason: PAIN LEVEL 7 - 10 Hydroxyurea (Hydrea -) 1,000 mg PO BID@0600,1800 [facility] Last Admin: 02/08/20 06:05 Dose: 1,000 mg Documented by: Hydroxyzine Pamoate (Vistaril -) 25 mg PO Q6H PRN PRN Reason: FOR ITCHING Last Admin: 02/07/20 11:54 Dose: 25 mg Documented by: Heparin Sodium/Dextrose (Heparin Infusion -) 25,000 units in 500 mls @ 20 mls/hr IVPB TITR [facility]; Protocol Last Admin: 02/07/20 22:30 Dose: 1,000 units/hr, 20 mls/hr Documented by: Dextrose/Sodium Chloride (D5-Ns -) 1,000 mls @ 75 mls/hr IV ASDIR [facility] Last Admin: 02/08/20 04:05 Dose: 75 mls/hr Documented by: Losartan Potassium (Cozaar -) 100 mg PO DAILY [facility] Morphine Sulfate (Morphine Sulfate) 4 mg IVPUSH Q6H PRN PRN Reason: PAIN LEVEL 6-10 Last Admin: 02/08/20 03:57 Dose: 4 mg Documented by: Ondansetron HCl (Zofran Injection) 4 mg IVPUSH Q6H PRN PRN Reason: NAUSEA AND/OR VOMITING Oxycodone HCl (Roxicodone -) 10 mg PO Q6H PRN PRN Reason: PAIN LEVEL 6-10 Pantoprazole Sodium (Protonix Iv) 40 mg IVPUSH DAILY [facility] Pramipexole Dihydrochloride (Mirapex -) 0.125 mg PO BID [facility] Last Admin: 02/07/20 22:08 Dose: 0.125 mg Documented by: - Objective Vital Signs: Vital Signs Temperature 98.8 F 02/08/20 05:00 Pulse Rate 75 02/08/20 05:00 Respiratory Rate 19 02/08/20 05:00 Blood Pressure 141/59 L 02/08/20 05:00 O2 Sat by Pulse Oximetry (%) 92 L 02/08/20 05:00 Constitutional: Yes: Mild Distress Cardiovascular: Yes: Regular Rate and Rhythm Respiratory: Yes: On Nasal O2 Gastrointestinal: Yes: Soft, Abdomen, Obese Genitourinary: Yes: Incontinence Musculoskeletal: Yes: Muscle Weakness Edema: Yes Neurological: Yes: Pre-Existing Deficit, Weakness Psychiatric: Yes: Other Labs: CBC, BMP 02/07/20 07:48 02/08/20 05:59 INR, PTT INR 1.16 (0.83-1.09) H 02/07/20 00:45 Fibrinogen 414.0 mg/dL (238-498) 02/07/20 00:35 Problem List - Problems (1) Abdominal pain Code(s): R10.9 - UNSPECIFIED ABDOMINAL PAIN Qualifiers: Abdominal location: right lower quadrant Qualified Code(s): R10.31 - Right lower quadrant pain (2) Anemia Code(s): D64.9 - ANEMIA, UNSPECIFIED (3) CML (chronic myelocytic leukemia) Code(s): C92.10 - CHRONIC MYELOID LEUK, BCR/ABL-POSITIVE, NOT ACHIEVE REMIS (4) History of CVA (cerebrovascular accident) Code(s): Z86.73 - PRSNL HX OF TIA (TIA), AND CEREB INFRC W/O RESID DEFICITS (5) HTN (hypertension) Code(s): I10 - ESSENTIAL (PRIMARY) HYPERTENSION (6) Osteoarthritis Code(s): M19.90 - UNSPECIFIED OSTEOARTHRITIS, UNSPECIFIED SITE Qualifiers: Osteoarthritis location: unspecified site (7) Splenic infarct Code(s): D73.5 - INFARCTION OF SPLEEN Assessment/Plan CLEAR DIET STARTED AWAIT ONCOLOGY EVAL IV FLUIDS PAIN CONTROL MONITOR ON TELEMETRY DNR/DNI TRANSFUSE PRBC NEEDED MONITOR LABS
[2020-02-08] MEDS ORDERED: PT OWN MED DRAWER 7, Y5N ONE ×4 (09:37→21:23)
[2020-02-08] MEDS: LOSARTAN POTASSIUM 50 MG TABLET (FP) PO SCH (10:03)
[2020-02-08] MEDS: amLODIPine BESYLATE 10 MG TABLET (FP) PO SCH (10:04)
[2020-02-08] MEDS: PRAMIPEXOLE DIHYDROCHLORIDE 0.125 MG TABLET PO SCH ×2 (10:04→21:23)
[2020-02-08] MEDS: ASPIRIN 81 MG CHEWABLE TABLETS PO SCH (10:04)
[2020-02-08] MEDS: ALLOPURINOL 300 MG TABLET (FP) PO SCH (10:04)
[2020-02-08] MEDS: GABAPENTIN 400 MG CAPSULE PO SCH ×4 (10:04→21:21)
[2020-02-08] MEDS: PANTOPRAZOLE SODIUM 40 MG VIAL IVPUSH SCH (10:04)
[2020-02-08] MEDS: FUROSEMIDE 20 MG TABLET (FP) PO SCH (10:04)
[2020-02-08] MEDS: hydrOXYzine PAMOATE 25 MG CAPSULE (FP) PO PRN (10:10)
[2020-02-08] MEDS: HEPARIN INFUSION - 25,000 UNITS/500 ML INFUS.BAG IVPB SCH (12:00)
--- NOTE | 2020-02-08 20:22 | PN ---
Progress Note (short form) - Note Progress Note: Patient seen in follow up. Ongoing generalized weakness, pain, malaise. Informs me she's 'tired' of dealing with her chronic illness. No significant events overnight. Inpatient Meds reviewed. Current Medications Generic Name Dose Route Start Last Admin Trade Name Freq PRN Reason Stop Dose Admin Allopurinol 300 mg 02/08/20 10:00 02/08/20 10:04 Zyloprim - PO 300 mg DAILY ROSALIE Administration Amlodipine Besylate 10 mg 02/08/20 10:00 02/08/20 10:04 Norvasc - PO 10 mg DAILY ROSALIE Administration Aspirin 81 mg 02/08/20 10:00 02/08/20 10:04 Asa - PO 81 mg DAILY ROSALIE Administration Furosemide 20 mg 02/08/20 10:00 02/08/20 10:04 Lasix - PO 20 mg DAILY ROSALIE Administration Gabapentin 400 mg 02/08/20 10:00 02/08/20 17:57 Neurontin - PO 400 mg QID ROSALIE Administration Heparin Sodium (Porcine) 1,000 unit 02/07/20 22:28 Heparin - IVPUSH PRN PRN Heparin Heparin Sodium (Porcine) 5,000 unit 02/07/20 22:28 Heparin - IVPUSH PRN PRN Heparin Hydromorphone HCl 1 mg 02/07/20 22:28 Dilaudid Vial - IVPB Q4H PRN PAIN LEVEL 7 - 10 Hydroxyurea 1,000 mg 02/07/20 18:00 02/08/20 17:57 Hydrea - PO 1,000 mg BID@0600,1800 ROSALIE Administration Hydroxyzine Pamoate 25 mg 02/07/20 09:53 02/08/20 10:10 Vistaril - PO 25 mg Q6H PRN Administration FOR ITCHING Heparin Sodium/Dextrose 25,000 units in 500 mls @ 20 mls/hr 02/07/20 22:28 02/08/20 12:00 Heparin Infusion - IVPB 1,000 units/hr TITR ROSALIE 20 mls/hr Administration Protocol 1,000 UNITS/HR Dextrose/Sodium Chloride 1,000 mls @ 75 mls/hr 02/07/20 22:28 02/08/20 04:05 D5-Ns - IV 75 mls/hr ASDIR ROSALIE Administration Losartan Potassium 100 mg 02/08/20 10:00 02/08/20 10:03 Cozaar - PO 100 mg DAILY ROSALIE Administration Morphine Sulfate 4 mg 02/07/20 22:28 02/08/20 17:58 Morphine Sulfate IVPUSH 4 mg Q6H PRN Administration PAIN LEVEL 6-10 Ondansetron HCl 4 mg 02/07/20 22:28 Zofran Injection IVPUSH Q6H PRN NAUSEA AND/OR VOMITING Oxycodone HCl 10 mg 02/07/20 22:28 Roxicodone - PO Q6H PRN PAIN LEVEL 6-10 Pantoprazole Sodium 40 mg 02/08/20 10:00 02/08/20 10:04 Protonix Iv IVPUSH 40 mg DAILY ROSALIE Administration Pramipexole Dihydrochloride 0.125 mg 02/07/20 10:00 02/08/20 10:04 Mirapex - PO 0.125 mg BID ROSALIE Administration On Examination: Last Vital Signs Temp Pulse Resp BP Pulse Ox 99.2 F 75 16 132/62 94 L 02/08/20 14:05 02/08/20 14:05 02/08/20 14:05 02/08/20 14:05 02/08/20 09:00 General: In no acute distress, lying comfortably in bed. Extremities: No pallor or icterus. No pedal edema. No palpable lymphadenopathy. CVS: S1, S2, regular, gallop++, Chest: good air entry bilaterally, clear Abdomen: Non-distended, diffusely tender, no palpable organomegaly. Neuro: Alert, oriented, non-focal. Labs: CBC, BMP 02/07/20 07:48 02/08/20 05:59 Assessment. Known CML, with history of poor compliance with TKI therapy, previously on Gleevec, but likely not in last several months. Concerned primarily about marked thrombocytosis. Neutrophilia with expected left shift noted. Initiated cytoreduction with HU yesterday. No CBC today. in interim. Empric anticoagulation for splenic infarcts not unreasonable, but with close observation - hemorrhagic risk theoretically - with possibility of acquired VWD with her marked thrombocytosis. TLS remains a concern. Continue allopurinol. Daily uric acid, LDH, with BMP. Explained to patient that her CML is likely asymptomatic, and not one of the hernandez contributing factors to her subjective sense of impaired well-being. F vasu, with institution of appropriate treatment her CML would be expected to be well controlled and is unlikely to impact negatively on her overall prognosis at all. Will start imatinib or alternate TKI in outpatient setting
[2020-02-08] MEDS: HYDROmorphone HCl 2 MG/ML VIAL IVPB PRN (21:23)
--- NOTE | 2020-02-08 22:49 | CONSULT ---
Consult Consult Specialty:: Endocrine Referred by:: DR..ammir tena Reason for Consultation:: DMT2 - History of Present Illness Chief Complaint: weakness and confused History of Present Illness: 74 y/o female from [facility] PMH of CML (last chemotherapy 8 months ago, d/c- side effects), Chronic Pain Syndrome, HTN, Renal Insufficiency, COPD (O2, prn), CVA, MS, Fibromyalgia, OA. Who had right sided chest pain, abdominal, lumbar pain.she states pain unrelieved with pain meds,was unable to tolerate the pain feeling depressed and withdrawn,she denies vomiting fever cough or chills.Her sugars have been low because poor appetite and not requiring medications for diabetic illness. 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: CVA, 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 Cardio/Vascular: Yes: HTN Pulmonary: Yes: Asthma, Cancer, COPD Gastrointestinal: Yes: GERD (using walker at home ) Renal/: Yes: Renal Inusuff Psych: Yes: Depression Musculoskeletal: Yes: Osteoarthritis, Other (DDD) Rheumatology: Yes: Rheumatoid Arthritis Endocrine: Yes: Diabetes Mellitus, Hypothyroidism Additional Medical History: as in HPI, morbidly obese - Past Surgical History Past Surgical History: Yes: Hysterectomy, Joint Replacement, Cholecystectomy - Alcohol/Substance Use Hx Alcohol Use: No History of Substance Use: reports: None - Smoking History Smoking history: Former smoker Have you smoked in the past 12 months: No Aproximately how many cigarettes per day: 0 If you are a former smoker, when did you quit?: 30 years ago - Social History Usual Living Arrangement: Alone 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 Travel: No Home Medications - Allergies Allergies/Adverse Reactions: Allergies Allergy/AdvReac Type Severity Reaction Status Date / Time Sulfa (Sulfonamide Allergy Severe Hives Verified 02/06/20 11:43 Antibiotics) - Home Medications Home Medications: Ambulatory Orders Acetaminophen 650 mg PO PRN 04/20/19 Amlodipine Besylate 10 mg PO DAILY 04/20/19 Clonidine HCl 0.1 mg PO DAILY 04/20/19 Losartan Potassium 50 mg PO DAILY 04/20/19 Melatonin 5 mg PO HS 04/20/19 Metoprolol Succinate [Toprol Xl] 50 mg PO DAILY 04/20/19 Interferon Beta-1A [Avonex Pen] 0.5 ml IM DAILY 06/20/19 Multivit-Min/Iron/Folic/Lutein [Centrum Silver Women Tablet] 1 each PO DAILY 06/20/19 Albuterol 0.083% Nebulizer Franca [Ventolin 0.083% Nebulizer Soln -] 1 amp NEB QID PRN amp 06/27/19 Ipratropium 0.02% Nebulizer [Atrovent 0.02% Nebulizer -] 1 amp NEB RQID PRN amp 06/27/19 Mirtazapine [Remeron -] 15 mg PO HS #30 tablet 06/27/19 Pramipexole Dihydrochloride [Mirapex -] 0.25 mg PO BID #60 tablet 06/27/19 Omeprazole 20 mg PO DAILY #30 cap.sr 10/16/19 hydrOXYzine PAMOATE [Vistaril -] 25 mg PO TID PRN #90 capsule 10/16/19 Gabapentin 400 mg PO QID #120 capsule 12/23/19 Hydrocodone/Acetaminophen [[place] 10-325 Tablet] 1 each PO QID PRN #120 tablet MDD 4 01/13/20 Family Medical History Family History: Unremarkable (NOT PERTINENT TO THIS PRESENTATION) Review of Systems - Review of Systems Constitutional: reports: Lethargy, Unintentional Wgt. Loss Eyes: reports: Blurred Vision HENT: reports: No Symptoms Neck: reports: Decreased ROM Cardiovascular: reports: No Symptoms Respiratory: reports: Exercise Intolerance Gastrointestinal: reports: Bloating, Nausea Genitourinary: reports: Flank Pain Breasts: reports: No Symptoms Reported Musculoskeletal: reports: Back Pain, Joint Pain, Joint Swelling, Muscle Cramps, Muscle Weakness Integumentary: reports: No Symptoms Neurological: reports: No Symptoms Endocrine: reports: Unexplained Weight Loss Hematology/Lymphatic: reports: No Symptoms Psychiatric: reports: Anxiety Physical Exam Vital Signs: Vital Signs Temperature 99.2 F 02/08/20 14:05 Pulse Rate 75 02/08/20 14:05 Respiratory Rate 16 02/08/20 14:05 Blood Pressure 132/62 02/08/20 14:05 O2 Sat by Pulse Oximetry (%) 94 L 02/08/20 09:00 Constitutional: Yes: Calm Eyes: Yes: EOM Intact HENT: Yes: Normocephalic Neck: Yes: Trachea Midline Cardiovascular: Yes: Regular Rate and Rhythm Respiratory: Yes: CTA Bilaterally Labs: CBC, BMP 02/07/20 07:48 02/08/20 05:59 Problem List - Problems (1) Abdominal pain Problems reviewed: Yes Code(s): R10.9 - UNSPECIFIED ABDOMINAL PAIN Qualifiers: Abdominal location: right lower quadrant Qualified Code(s): R10.31 - Right lower quadrant pain (2) CML (chronic myelocytic leukemia) Code(s): C92.10 - CHRONIC MYELOID LEUK, BCR/ABL-POSITIVE, NOT ACHIEVE REMIS (3) Splenic infarct Code(s): D73.5 - INFARCTION OF SPLEEN (4) Abnormal antibody titer Code(s): R76.8 - OTHER SPECIFIED ABNORMAL IMMUNOLOGICAL FINDINGS IN SERUM (5) Acute kidney failure Code(s): N17.9 - ACUTE KIDNEY FAILURE, UNSPECIFIED (6) Allergy to sulfa drugs Code(s): Z88.2 - ALLERGY STATUS TO SULFONAMIDES STATUS (7) Anemia Code(s): D64.9 - ANEMIA, UNSPECIFIED (8) C. difficile diarrhea Code(s): A04.72 - ENTEROCOLITIS D/T CLOSTRIDIUM DIFFICILE, NOT SPCF RECUR Assessment/Plan Current Active Problems dmT2,diet controlled weight loss Abdominal pain (Acute) CML (chronic myelocytic leukemia) (Acute) Splenic infarct (Acute) Abnormal Lab Results 02/08/20 02/08/20 05:59 05:59 PTT (Actin FS) 55.7 H Random Glucose 70 L Calcium 7.6 L Alkaline Phosphatase 225 H Total Protein 6.2 L Albumin 2.8 L Laboratory Results - last 24 hr 02/07/20 02/08/20 02/08/20 00:30 05:59 05:59 PTT (Actin FS) 55.7 H Sodium 140 Potassium 4.5 Chloride 106 Carbon Dioxide 24 Anion Gap 10 BUN 8.5 Creatinine 1.1 Est GFR (CKD-EPI)AfAm 57.28 Est GFR (CKD-EPI)NonAf 49.42 Random Glucose 70 L Calcium 7.6 L Magnesium 1.8 Total Bilirubin 0.4 AST 36 ALT 16 Alkaline Phosphatase 225 H Total Protein 6.2 L Albumin 2.8 L COVID-19 (HEIDI) Not detected plan: iv fluid rehydration hematlogy /oncology follow psych consult ck hbaic tsh free t4
[2020-02-08] MEDS: oxyCODONE HCL 5 MG TABLET PO PRN (23:15)
[2020-02-09] MEDS: morphine SULFATE 4 MG/ML VIAL IVPUSH PRN ×3 (02:47→21:59)
[2020-02-09] MEDS: HYDROXYUREA 500 MG CAPSULE PO SCH ×2 (06:23→17:18)
[2020-02-09 07:41] LABS: HEMATOCRIT 23.2 % (32.4-45.2); HEMOGLOBIN 7.2 GM/dL (10.7-15.3); MCH 24.8 pg (25.7-33.7); MCHC 30.9 g/dl (32.0-36.0); MEAN CELL VOLUME 80.1 fl (80-96); MEAN PLT VOLUME 7.9 fl (7.5-11.1); RBC 2.89 M/mm3 (3.60-5.2); RDW 21.8 % (11.6-15.6)
--- NOTE | 2020-02-09 08:08 | PN ---
Progress Note, Physician - Current Medication List Current Medications: Active Medications Allopurinol (Zyloprim -) 300 mg PO DAILY [facility] Last Admin: 02/08/20 10:04 Dose: 300 mg Documented by: Amlodipine Besylate (Norvasc -) 10 mg PO DAILY [facility] Last Admin: 02/08/20 10:04 Dose: 10 mg Documented by: Aspirin (Asa -) 81 mg PO DAILY [facility] Last Admin: 02/08/20 10:04 Dose: 81 mg Documented by: Furosemide (Lasix -) 20 mg PO DAILY [facility] Last Admin: 02/08/20 10:04 Dose: 20 mg Documented by: Gabapentin (Neurontin -) 400 mg PO QID [facility] Last Admin: 02/08/20 21:21 Dose: 400 mg Documented by: Heparin Sodium (Porcine) (Heparin -) 1,000 unit IVPUSH PRN PRN PRN Reason: Heparin Heparin Sodium (Porcine) (Heparin -) 5,000 unit IVPUSH PRN PRN PRN Reason: Heparin Hydromorphone HCl (Dilaudid Vial -) 1 mg IVPB Q4H PRN PRN Reason: PAIN LEVEL 7 - 10 Last Admin: 02/08/20 21:23 Dose: 1 mg Documented by: Hydroxyurea (Hydrea -) 1,000 mg PO BID@0600,1800 [facility] Last Admin: 02/09/20 06:23 Dose: 1,000 mg Documented by: Hydroxyzine Pamoate (Vistaril -) 25 mg PO Q6H PRN PRN Reason: FOR ITCHING Last Admin: 02/08/20 10:10 Dose: 25 mg Documented by: Heparin Sodium/Dextrose (Heparin Infusion -) 25,000 units in 500 mls @ 20 mls/hr IVPB TITR [facility]; Protocol Last Admin: 02/08/20 12:00 Dose: 1,000 units/hr, 20 mls/hr Documented by: Dextrose/Sodium Chloride (D5-Ns -) 1,000 mls @ 75 mls/hr IV ASDIR [facility] Last Admin: 02/08/20 23:18 Dose: 75 mls/hr Documented by: Losartan Potassium (Cozaar -) 100 mg PO DAILY [facility] Last Admin: 02/08/20 10:03 Dose: 100 mg Documented by: Morphine Sulfate (Morphine Sulfate) 4 mg IVPUSH Q6H PRN PRN Reason: PAIN LEVEL 6-10 Last Admin: 02/09/20 02:47 Dose: 4 mg Documented by: Ondansetron HCl (Zofran Injection) 4 mg IVPUSH Q6H PRN PRN Reason: NAUSEA AND/OR VOMITING Oxycodone HCl (Roxicodone -) 10 mg PO Q6H PRN PRN Reason: PAIN LEVEL 6-10 Last Admin: 02/08/20 23:15 Dose: 10 mg Documented by: Pantoprazole Sodium (Protonix Iv) 40 mg IVPUSH DAILY [facility] Last Admin: 02/08/20 10:04 Dose: 40 mg Documented by: Pramipexole Dihydrochloride (Mirapex -) 0.125 mg PO BID [facility] Last Admin: 02/08/20 21:23 Dose: 0.125 mg Documented by: - Objective Vital Signs: Vital Signs Temperature 97.8 F 02/09/20 05:12 Pulse Rate 68 02/09/20 05:12 Respiratory Rate 20 02/09/20 05:12 Blood Pressure 126/56 L 02/09/20 05:12 O2 Sat by Pulse Oximetry (%) 95 02/09/20 05:12 Cardiovascular: Yes: S1, S2 Respiratory: Yes: Regular, CTA Bilaterally Gastrointestinal: Yes: Normal Bowel Sounds, Soft Neurological: Yes: Alert, Oriented Labs: CBC, BMP 02/08/20 05:59 INR, PTT INR 1.16 (0.83-1.09) H 02/07/20 00:45 Fibrinogen 414.0 mg/dL (238-498) 02/07/20 00:35 Problem List - Problems (1) CML (chronic myelocytic leukemia) Assessment/Plan: - monitor CBC Appreciate Oncology consult Monitor vitals Code(s): C92.10 - CHRONIC MYELOID LEUK, BCR/ABL-POSITIVE, NOT ACHIEVE REMIS (2) Splenic infarct Assessment/Plan: CTAP- splenic infarcts acute vs subacute, biliary tract dilatation, remainder of exam no obvious interval change Awaiting INR/PTT studies on Heparin Protocol Morphine oncology on board Code(s): D73.5 - INFARCTION OF SPLEEN (3) Anemia Assessment/Plan: Will transfuse Appreciate Hematology consult Monitor CBC Monitor vitals Code(s): D64.9 - ANEMIA, UNSPECIFIED (4) HTN (hypertension) Assessment/Plan: Vital Signs Period Temp Pulse Resp BP Sys/Teague Pulse Ox Last 24 Hr 97.8 F-99.4 F 68-75 16-20 87-132/40-62 91-95 Code(s): I10 - ESSENTIAL (PRIMARY) HYPERTENSION (5) COPD (chronic obstructive pulmonary disease) Code(s): J44.9 - CHRONIC OBSTRUCTIVE PULMONARY DISEASE, UNSPECIFIED (6) Chronic pain of multiple joints Assessment/Plan: pain control Code(s): M25.50 - PAIN IN UNSPECIFIED JOINT; G89.29 - OTHER CHRONIC PAIN (7) Chest pain Assessment/Plan: Serial Enzymes neg Chest CTA reviewed- neg PE, bibasilar opacities likely atelectasis, less likely infiltrates, chronic multilevel thoracolumbar vertebral body compression fractures EKG reviewed- NSR no ST or TWI Appreciate Cardiology consult Code(s): R07.9 - CHEST PAIN, UNSPECIFIED Qualifiers: Chest pain type: intercostal pain Qualified Code(s): R07.82 - Intercostal pain Assessment/Plan dnr and dni palliative care consult
[2020-02-09 08:14] LABS: PLATELET COUNT 1322 K/MM3 (134-434)
[2020-02-09] MEDS: HYDROmorphone HCl 2 MG/ML VIAL IVPB PRN ×2 (08:19→18:16)
[2020-02-09] MEDS ORDERED: PT OWN MED DRAWER 7, Y5N ONE ×2 (09:09→09:13)
[2020-02-09] MEDS: DEXTROSE 5%-NORMAL SALINE 1,000 ML IV SCH ×2 (09:36→23:09)
[2020-02-09] MEDS: amLODIPine BESYLATE 10 MG TABLET (FP) PO SCH (09:37)
[2020-02-09] MEDS: FUROSEMIDE 20 MG TABLET (FP) PO SCH (09:37)
[2020-02-09] MEDS: ALLOPURINOL 300 MG TABLET (FP) PO SCH (09:37)
[2020-02-09] MEDS: GABAPENTIN 400 MG CAPSULE PO SCH ×4 (09:37→21:52)
[2020-02-09] MEDS: PANTOPRAZOLE SODIUM 40 MG VIAL IVPUSH SCH (09:37)
[2020-02-09] MEDS: ASPIRIN 81 MG CHEWABLE TABLETS PO SCH (09:38)
[2020-02-09] MEDS: PRAMIPEXOLE DIHYDROCHLORIDE 0.125 MG TABLET PO SCH ×2 (09:38→21:52)
[2020-02-09] MEDS: LOSARTAN POTASSIUM 50 MG TABLET (FP) PO SCH (09:38)
[2020-02-09] MEDS ORDERED: FUROSEMIDE 40 MG/4 ML INJECTABLE VIAL IVPUSH ONE (09:53)
[2020-02-09 10:41] LABS: WHITE BLOOD COUNT 92.8 K/mm3 (4.0-10.0)
--- NOTE | 2020-02-09 11:21 | PN ---
Physical Exam: SUBJECTIVE: Patient seen and examined. Patient reporting LUQ pain with deep breathing. She reports feeling tired and fatigued and no appetite. OBJECTIVE: Vital Signs Temperature 98.1 F 02/09/20 10:00 Pulse Rate 74 02/09/20 10:00 Respiratory Rate 20 02/09/20 10:00 Blood Pressure 131/63 02/09/20 10:00 O2 Sat by Pulse Oximetry (%) 90 L 02/09/20 09:00 GENERAL: The patient is awake, alert, and fully oriented ENT: dry mucous membranes. NECK: supple. LUNGS: decreased breath sounds bilateral bases HEART: Regular rate and rhythm, S1, S2 ABDOMEN: Soft, +LUQ/LLQ tenderness, nondistended, normoactive bowel sounds. EXTREMITIES: 2+ pulses, warm, well-perfused, no edema. SKIN: Warm, dry, normal turgor Laboratory Results - last 24 hr 02/09/20 02/09/20 02/09/20 06:33 06:33 10:33 WBC 92.8 H* RBC 2.89 L Hgb 7.2 L Hct 23.2 L MCV 80.1 MCH 24.8 L MCHC 30.9 L RDW 21.8 H Plt Count 1322 H MPV 7.9 PTT (Actin FS) 63.6 H Crossmatch See Detail Active Medications Generic Name Dose Route Start Last Admin Trade Name Freq PRN Reason Stop Dose Admin Allopurinol 300 mg 02/08/20 10:00 02/09/20 09:37 Zyloprim - PO 300 mg DAILY ROSALIE Administration Amlodipine Besylate 10 mg 02/08/20 10:00 02/09/20 09:37 Norvasc - PO 10 mg DAILY ROSALIE Administration Aspirin 81 mg 02/08/20 10:00 02/09/20 09:38 Asa - PO 81 mg DAILY ROSALIE Administration Furosemide 20 mg 02/08/20 10:00 02/09/20 09:37 Lasix - PO 20 mg DAILY ROSALIE Administration Gabapentin 400 mg 02/08/20 10:00 02/09/20 09:37 Neurontin - PO 400 mg QID ROSALIE Administration Heparin Sodium (Porcine) 1,000 unit 02/07/20 22:28 Heparin - IVPUSH PRN PRN Heparin Heparin Sodium (Porcine) 5,000 unit 02/07/20 22:28 Heparin - IVPUSH PRN PRN Heparin Hydromorphone HCl 1 mg 02/07/20 22:28 02/09/20 08:19 Dilaudid Vial - IVPB 1 mg Q4H PRN Administration PAIN LEVEL 7 - 10 Hydroxyurea 1,000 mg 02/07/20 18:00 02/09/20 06:23 Hydrea - PO 1,000 mg BID@0600,1800 ROSALIE Administration Hydroxyzine Pamoate 25 mg 02/07/20 09:53 02/08/20 10:10 Vistaril - PO 25 mg Q6H PRN Administration FOR ITCHING Heparin Sodium/Dextrose 25,000 units in 500 mls @ 20 mls/hr 02/07/20 22:28 02/08/20 12:00 Heparin Infusion - IVPB 1,000 units/hr TITR ROSALIE 20 mls/hr Administration Protocol 1,000 UNITS/HR Dextrose/Sodium Chloride 1,000 mls @ 75 mls/hr 02/07/20 22:28 02/09/20 09:36 D5-Ns - IV 75 mls/hr ASDIR ROSALIE Administration Losartan Potassium 100 mg 02/08/20 10:00 02/09/20 09:38 Cozaar - PO 100 mg DAILY ROSALIE Administration Morphine Sulfate 4 mg 02/07/20 22:28 02/09/20 02:47 Morphine Sulfate IVPUSH 4 mg Q6H PRN Administration PAIN LEVEL 6-10 Nystatin 1 applic 02/09/20 22:00 Nystop Powder - TP BID ROSALIE Ondansetron HCl 4 mg 02/07/20 22:28 Zofran Injection IVPUSH Q6H PRN NAUSEA AND/OR VOMITING Oxycodone HCl 10 mg 02/07/20 22:28 02/08/20 23:15 Roxicodone - PO 10 mg Q6H PRN Administration PAIN LEVEL 6-10 Pantoprazole Sodium 40 mg 02/08/20 10:00 02/09/20 09:37 Protonix Iv IVPUSH 40 mg DAILY ROSALIE Administration Polyethylene Glycol 17 gm 02/09/20 22:00 Miralax (For Daily Use) - PO BID [facility] Pramipexole Dihydrochloride 0.125 mg 02/07/20 10:00 02/09/20 09:38 Mirapex - PO 0.125 mg BID ROSALIE Administration ASSESSMENT/PLAN: Patient is a 74 y/o female from [facility] with a significant past medical history of: CML (last chemotherapy 8 months ago, d/c- side effects), Chronic Pain Syndrome, HTN, Renal Insufficiency, COPD (O2, prn), CVA, MS, Fibromyalgia, OA. Who presents to the ED with right sided chest pain, abdominal, lumbar pain, right leg swelling for 3 days. #Neutrophilia in setting of CML #Thrombocytosis #Splenic infacts -Known CML, with history of poor compliance with Imatinib, last reported treatment 8 months ago -Hydroxyurea 1000mg bid started 02/06 -Allopurinol 300mg daily, high risk for tumor lysis -on heparin gtt for splenic infarcts. -In setting of thrombocytosis, acquired vwd possible, increasing bleeding risk -will order aVWD Ag percentage and activity , as well as Factor VIII -monitor cbc, bmp, uric acid, LDH daily -pain control as per primary team Visit type - Emergency Visit Emergency Visit: Yes ED Registration Date: 02/06/20 Care time: The patient presented to the Emergency Department on the above date and was hospitalized for further evaluation of their emergent condition. - New Patient This patient is new to me today: Yes Date on this admission: 02/09/20 - Critical Care Critical Care patient: No - Medication Review Med list reviewed for High Risk Meds patients 65 and older: Yes ATTENDING PHYSICIAN STATEMENT I saw and evaluated the patient. I reviewed the resident's note and discussed the case with the resident. I agree with the resident's findings and plan as documented. SUBJECTIVE: OBJECTIVE: ASSESSMENT AND PLAN:
[2020-02-09 11:26] LABS: ALBUMIN 2.5 g/dl (3.4-5.0); BILIRUBIN,TOTAL 0.4 mg/dL (0.2-1); BLOOD UREA NITROGEN 9.4 mg/dL (7-18); CALCIUM 7.1 mg/dL (8.5-10.1); CREATININE 1.2 mg/dL (0.55-1.3); POTASSIUM 4.2 mmol/L (3.5-5.1); TOT PROT 5.5 g/dl (6.4-8.2); URIC ACID 5.7 mg/dL (2.6-7.2)
--- NOTE | 2020-02-09 11:59 | PN ---
Progress Note (short form) - Note Progress Note: s: no cp sob palps dizzy Current Medications Generic Name Dose Route Start Last Admin Trade Name Freq PRN Reason Stop Dose Admin Allopurinol 300 mg 02/08/20 10:00 02/09/20 09:37 Zyloprim - PO 300 mg DAILY ROSALIE Administration Amlodipine Besylate 10 mg 02/08/20 10:00 02/09/20 09:37 Norvasc - PO 10 mg DAILY ROSALIE Administration Aspirin 81 mg 02/08/20 10:00 02/09/20 09:38 Asa - PO 81 mg DAILY ROSALIE Administration Furosemide 20 mg 02/08/20 10:00 02/09/20 09:37 Lasix - PO 20 mg DAILY ROSALIE Administration Gabapentin 400 mg 02/08/20 10:00 02/09/20 09:37 Neurontin - PO 400 mg QID ROSALIE Administration Heparin Sodium (Porcine) 1,000 unit 02/07/20 22:28 Heparin - IVPUSH PRN PRN Heparin Heparin Sodium (Porcine) 5,000 unit 02/07/20 22:28 Heparin - IVPUSH PRN PRN Heparin Hydromorphone HCl 1 mg 02/07/20 22:28 02/09/20 08:19 Dilaudid Vial - IVPB 1 mg Q4H PRN Administration PAIN LEVEL 7 - 10 Hydroxyurea 1,000 mg 02/07/20 18:00 02/09/20 06:23 Hydrea - PO 1,000 mg BID@0600,1800 [facility] Administration Hydroxyzine Pamoate 25 mg 02/07/20 09:53 02/08/20 10:10 Vistaril - PO 25 mg Q6H PRN Administration FOR ITCHING Heparin Sodium/Dextrose 25,000 units in 500 mls @ 20 mls/hr 02/07/20 22:28 02/08/20 12:00 Heparin Infusion - IVPB 1,000 units/hr TITR ROSALIE 20 mls/hr Administration Protocol 1,000 UNITS/HR Dextrose/Sodium Chloride 1,000 mls @ 75 mls/hr 02/07/20 22:28 02/09/20 09:36 D5-Ns - IV 75 mls/hr ASDIR ROSALIE Administration Losartan Potassium 100 mg 02/08/20 10:00 02/09/20 09:38 Cozaar - PO 100 mg DAILY ROSALIE Administration Morphine Sulfate 4 mg 02/07/20 22:28 02/09/20 02:47 Morphine Sulfate IVPUSH 4 mg Q6H PRN Administration PAIN LEVEL 6-10 Nystatin 1 applic 02/09/20 22:00 Nystop Powder - TP BID ROSALIE Ondansetron HCl 4 mg 02/07/20 22:28 Zofran Injection IVPUSH Q6H PRN NAUSEA AND/OR VOMITING Oxycodone HCl 10 mg 02/07/20 22:28 02/08/20 23:15 Roxicodone - PO 10 mg Q6H PRN Administration PAIN LEVEL 6-10 Pantoprazole Sodium 40 mg 02/08/20 10:00 02/09/20 09:37 Protonix Iv IVPUSH 40 mg DAILY ROSALIE Administration Polyethylene Glycol 17 gm 02/09/20 22:00 Miralax (For Daily Use) - PO BID ROSALIE Pramipexole Dihydrochloride 0.125 mg 02/07/20 10:00 02/09/20 09:38 Mirapex - PO 0.125 mg BID ROSALIE Administration Vital Signs Period Temp Pulse Resp BP Sys/Teague Pulse Ox Last 24 Hr 97.8 F-99.4 F 68-75 16-20 87-132/40-63 90-95 Constitutional: Yes: No Distress, Calm Eyes: Yes: Conjunctiva Clear Respiratory: Yes: CTA Bilaterally Gastrointestinal: Yes: Soft, Abdomen, Obese (NT) JVD: No Carotid Bruit: No PMI: Non-Displaced Heart Sounds: Yes: S1, S2 (RRR) Edema: No Neurological: Yes: Alert, Oriented no jaundice diaphoresis Laboratory Last Values WBC 92.8 K/mm3 (4.0-10.0) H* 02/09/20 06:33 RBC 2.89 M/mm3 (3.60-5.2) L 02/09/20 06:33 Hgb 7.2 GM/dL (10.7-15.3) L 02/09/20 06:33 Hct 23.2 % (32.4-45.2) L 02/09/20 06:33 MCV 80.1 fl (80-96) 02/09/20 06:33 MCH 24.8 pg (25.7-33.7) L 02/09/20 06:33 MCHC 30.9 g/dl (32.0-36.0) L 02/09/20 06:33 RDW 21.8 % (11.6-15.6) H 02/09/20 06:33 Plt Count 1322 K/MM3 (134-434) H 02/09/20 06:33 MPV 7.9 fl (7.5-11.1) 02/09/20 06:33 Absolute Neuts (auto) 93.1 K/mm3 (1.5-8.0) H 02/07/20 07:48 Neutrophils % 85.0 % (42.8-82.8) H 02/07/20 07:48 Neutrophils % (Manual) 47.7 % (42.8-82.8) 02/07/20 07:48 Band Neutrophils % 23.4 % 02/07/20 07:48 Lymphocytes % 5.6 % (8-40) L 02/07/20 07:48 Lymphocytes % (Manual) 3.7 % (8-40) L D 02/07/20 07:48 Monocytes % 5.1 % (3.8-10.2) 02/07/20 07:48 Monocytes % (Manual) 5 % (3.8-10.2) D 02/07/20 07:48 Eosinophils % 0.9 % (0-4.5) 02/07/20 07:48 Eosinophils % (Manual) 0.9 % (0-4.5) 02/07/20 07:48 Basophils % 3.4 % (0-2.0) H 02/07/20 07:48 Basophils % (Manual) 0.9 % (0-2.0) 02/07/20 07:48 Myelocytes % (Man) 13 % (0-2) H D 02/07/20 07:48 Promyelocytes % (Man) 2 % (0-2) D 02/07/20 07:48 Blast Cells % (Manual) 2 % (0-0) H D 02/07/20 07:48 Nucleated RBC % 3 % (0-0) H 02/07/20 07:48 Metamyelocytes 1 % (0-2) D 02/07/20 07:48 Hypochromia 1+ 02/07/20 07:48 Platelet Estimate Increased 02/07/20 07:48 Platelet Comment Present 02/06/20 12:40 Polychromasia 1+ 02/07/20 07:48 Poikilocytosis 1+ 02/07/20 07:48 Basophilic Stippling 1+ 02/06/20 12:40 Anisocytosis 1+ 02/07/20 07:48 Microcytosis 1+ 02/07/20 07:48 Macrocytosis 0 02/07/20 07:48 Tear Drop Cells 1+ 02/06/20 12:40 Schistocytes 1+ 02/06/20 12:40 PT with INR 13.70 SEC (9.7-13.0) H 02/07/20 00:45 INR 1.16 (0.83-1.09) H 02/07/20 00:45 PTT (Actin FS) 63.6 SECONDS (25.2-36.5) H 02/09/20 06:33 Fibrinogen 414.0 mg/dL (238-498) 02/07/20 00:35 Sodium 140 mmol/L (136-145) 02/09/20 06:33 Potassium 4.2 mmol/L (3.5-5.1) 02/09/20 06:33 Chloride 108 mmol/L (98-107) H 02/09/20 06:33 Carbon Dioxide 26 mmol/L (21-32) 02/09/20 06:33 Anion Gap 6 MMOL/L (8-16) L 02/09/20 06:33 BUN 9.4 mg/dL (7-18) 02/09/20 06:33 Creatinine 1.2 mg/dL (0.55-1.3) 02/09/20 06:33 Est GFR (CKD-EPI)AfAm 51.56 02/09/20 06:33 Est GFR (CKD-EPI)NonAf 44.48 02/09/20 06:33 Random Glucose 92 mg/dL (74-106) 02/09/20 06:33 Lactic Acid 1.0 mmol/L (0.4-2.0) 02/06/20 12:40 Uric Acid 5.7 mg/dL (2.6-7.2) 02/09/20 06:33 Calcium 7.1 mg/dL (8.5-10.1) L 02/09/20 06:33 Phosphorus 5.4 mg/dL (2.5-4.9) H 02/07/20 07:48 Magnesium 1.8 mg/dL (1.8-2.4) 02/08/20 05:59 Total Bilirubin 0.4 mg/dL (0.2-1) 02/09/20 06:33 AST 27 U/L (15-37) 02/09/20 06:33 ALT 15 U/L (13-61) 02/09/20 06:33 Alkaline Phosphatase 199 U/L (45-117) H 02/09/20 06:33 LD Total 850 U/L (84-246) H 02/07/20 07:48 Creatine Kinase 124 U/L (26-192) 02/06/20 12:40 Troponin I 0.03 ng/ml (0.00-0.05) 02/07/20 00:45 B-Natriuretic Peptide 278.9 pg/ml (5-125) H 02/06/20 12:40 Total Protein 5.5 g/dl (6.4-8.2) L 02/09/20 06:33 Albumin 2.5 g/dl (3.4-5.0) L 02/09/20 06:33 Triglycerides 167 mg/dL (0-150) H 02/07/20 00:45 Cholesterol 137 mg/dL (50-200) 02/07/20 00:45 Total LDL Cholesterol 77 mg/dL (5-100) 02/07/20 00:45 HDL Cholesterol 33 mg/dL (40-60) L 02/07/20 00:45 Lipase 118 U/L (73-393) 02/06/20 12:40 Urine Color Yellow 02/06/20 12:40 Urine Appearance Clear 02/06/20 12:40 Urine pH 6.5 (5.0-8.0) 02/06/20 12:40 Ur Specific [place] 1.009 (1.010-1.035) L 02/06/20 12:40 Urine Protein Negative (NEGATIVE) 02/06/20 12:40 Urine Glucose (UA) Negative (NEGATIVE) 02/06/20 12:40 Urine Ketones Negative (NEGATIVE) 02/06/20 12:40 Urine Blood Negative (NEGATIVE) 02/06/20 12:40 Urine Nitrite Negative (NEGATIVE) 02/06/20 12:40 Urine Bilirubin Negative (NEGATIVE) 02/06/20 12:40 Urine Urobilinogen 1.0 mg/dL (0.2-1.0) 02/06/20 12:40 Ur Leukocyte Esterase Negative (NEGATIVE) 02/06/20 12:40 COVID-19 (HEIDI) Not detected (Not Detected) 02/07/20 00:30 Crossmatch See Detail 02/09/20 10:33 tele: sr nsr no acute ST changes Echo: Other (echo 03/2018: nl lv/rv, no sig valve path) Assessment/Plan IMP: CML with marked thrombocytosis and splenic infarcts Atypical CP History of CVA Chronic HTN Multiple comorbidities REC: 1. CML/thrombocytosis/splenic infarcts: -On hydroxyurea as per Heme, further management as per Heme -Tele shows sr, benign 2. Atypical CP: -TnI negative x2, ECG without ischemic changes, CTA negative for PE; low suspicion for ACS. Likely MSK -Echo pending 3. History of CVA: -stable -On heparin gtt for possible hyperviscosity syndrome -On tele to r/o occult PAF 4. HTN: -Stable, continue home meds
[2020-02-09 12:08] VITALS: BMI 33.5
[2020-02-09] MEDS: HEPARIN INFUSION - 25,000 UNITS/500 ML INFUS.BAG IVPB SCH ×2 (14:53→23:10)
--- NOTE | 2020-02-09 16:02 | PN ---
Teaching Attending Note Name of Resident: Avelina Cooper ATTENDING PHYSICIAN STATEMENT 74F CML (not on Imatinib >6 months, d/c 2/2 GI side effects) MS, fibromyalgia, chronic pain, COPD on O2 PRN, HTN, CKD who presented with right sided chest pain, abd pain and RLE edema x 3 days. CTA ruled out PE but noted to have acute/subacute splenic infarcts. CBC remarkable for WBC 110, Hb 8.1, Plt 1298. Started on heparin gtt and hydrea 1000mg BID. Would obtain vwf antigen, ristocetin cofactor activity and factor VIII activity as patient may have acquired VWF which would make her more susceptible to bleeding. If workup is negative, we can continue anticoagulation as outpatient. Continue with IV hydration and allopurinol as she is at risk for TLS. Would also obtain G6PD activity as pt may need rasburicase if uric acid continues to increase as well as baseline BCR-ABL prior to starting therapy. We spoke to pharmacy today to try to obtain Dasatinib as pt did not tolerate imatinib 2/2 nausea/vomiting/diarrhea. She is amenable to trying 2nd gen TKI.
[2020-02-09] MEDS ORDERED: FUROSEMIDE 40 MG/4 ML INJECTABLE VIAL ONE (18:26)
[2020-02-09] MEDS: NYSTATIN POWDER 100,000 UNITS/GM - 15 GM TOPICAL POWDER TP SCH (21:52)
[2020-02-09] MEDS: POLYETHYLENE GLYCOL 3350 119 GM BTL PO SCH (21:59)
[2020-02-10] MEDS: HYDROmorphone HCl 2 MG/ML VIAL IVPB PRN (04:29)
[2020-02-10] MEDS: HYDROXYUREA 500 MG CAPSULE PO SCH ×2 (06:44→18:26)
[2020-02-10 06:50] LABS: HEMATOCRIT 26.7 % (32.4-45.2); HEMOGLOBIN 8.4 GM/dL (10.7-15.3); MCH 25.6 pg (25.7-33.7); MCHC 31.4 g/dl (32.0-36.0); MEAN CELL VOLUME 81.5 fl (80-96); MEAN PLT VOLUME 8.1 fl (7.5-11.1); RBC 3.27 M/mm3 (3.60-5.2); RDW 20.3 % (11.6-15.6)
[2020-02-10 07:13] LABS: URIC ACID 5.4 mg/dL (2.6-7.2)
[2020-02-10 07:47] LABS: PLATELET COUNT 1400 K/MM3 (134-434)
[2020-02-10 07:49] LABS: WHITE BLOOD COUNT 83.2 K/mm3 (4.0-10.0)
[2020-02-10] MEDS: morphine SULFATE 4 MG/ML VIAL IVPUSH PRN ×3 (07:58→21:46)
--- NOTE | 2020-02-10 08:08 | PN ---
Progress Note, Physician - Current Medication List Current Medications: Active Medications Allopurinol (Zyloprim -) 300 mg PO DAILY [facility] Last Admin: 02/09/20 09:37 Dose: 300 mg Documented by: Amlodipine Besylate (Norvasc -) 10 mg PO DAILY [facility] Last Admin: 02/09/20 09:37 Dose: 10 mg Documented by: Aspirin (Asa -) 81 mg PO DAILY [facility] Last Admin: 02/09/20 09:38 Dose: 81 mg Documented by: Furosemide (Lasix -) 20 mg PO DAILY [facility] Last Admin: 02/09/20 09:37 Dose: 20 mg Documented by: Gabapentin (Neurontin -) 400 mg PO QID [facility] Last Admin: 02/09/20 21:52 Dose: 400 mg Documented by: Heparin Sodium (Porcine) (Heparin -) 1,000 unit IVPUSH PRN PRN PRN Reason: Heparin Heparin Sodium (Porcine) (Heparin -) 5,000 unit IVPUSH PRN PRN PRN Reason: Heparin Hydromorphone HCl (Dilaudid Vial -) 1 mg IVPB Q4H PRN PRN Reason: PAIN LEVEL 7 - 10 Last Admin: 02/10/20 04:29 Dose: 1 mg Documented by: Hydroxyurea (Hydrea -) 1,000 mg PO BID@0600,1800 [facility] Last Admin: 02/10/20 06:44 Dose: 1,000 mg Documented by: Hydroxyzine Pamoate (Vistaril -) 25 mg PO Q6H PRN PRN Reason: FOR ITCHING Last Admin: 02/08/20 10:10 Dose: 25 mg Documented by: Heparin Sodium/Dextrose (Heparin Infusion -) 25,000 units in 500 mls @ 20 mls/hr IVPB TITR [facility]; Protocol Last Admin: 02/09/20 23:10 Dose: Not Given Documented by: Dextrose/Sodium Chloride (D5-Ns -) 1,000 mls @ 75 mls/hr IV ASDIR [facility] Last Admin: 02/09/20 23:09 Dose: Not Given Documented by: Losartan Potassium (Cozaar -) 100 mg PO DAILY [facility] Last Admin: 02/09/20 09:38 Dose: 100 mg Documented by: Morphine Sulfate (Morphine Sulfate) 4 mg IVPUSH Q6H PRN PRN Reason: PAIN LEVEL 6-10 Last Admin: 02/10/20 07:58 Dose: 4 mg Documented by: Avonex (Interferon Beta-1a) 30mcg/0.5 Ml 1 each IM Th@1000 [facility] Nystatin (Nystop Powder -) 1 applic TP BID [facility] Last Admin: 02/09/20 21:52 Dose: 1 applic Documented by: Ondansetron HCl (Zofran Injection) 4 mg IVPUSH Q6H PRN PRN Reason: NAUSEA AND/OR VOMITING Oxycodone HCl (Roxicodone -) 10 mg PO Q6H PRN PRN Reason: PAIN LEVEL 6-10 Last Admin: 02/08/20 23:15 Dose: 10 mg Documented by: Pantoprazole Sodium (Protonix Iv) 40 mg IVPUSH DAILY [facility] Last Admin: 02/09/20 09:37 Dose: 40 mg Documented by: Polyethylene Glycol (Miralax (For Daily Use) -) 17 gm PO BID [facility] Last Admin: 02/09/20 21:59 Dose: 17 gm Documented by: Pramipexole Dihydrochloride (Mirapex -) 0.125 mg PO BID [facility] Last Admin: 02/09/20 21:52 Dose: 0.125 mg Documented by: - Objective Vital Signs: Vital Signs Temperature 98.2 F 02/10/20 05:56 Pulse Rate 68 02/10/20 05:56 Respiratory Rate 18 02/10/20 05:56 Blood Pressure 128/55 L 02/10/20 05:56 O2 Sat by Pulse Oximetry (%) 94 L 02/10/20 05:56 Cardiovascular: Yes: S1, S2 Respiratory: Yes: Regular, CTA Bilaterally Gastrointestinal: Yes: Normal Bowel Sounds, Soft Neurological: Yes: Alert, Oriented, Weakness Labs: CBC, BMP 02/10/20 05:38 02/09/20 06:33 INR, PTT INR 1.16 (0.83-1.09) H 02/07/20 00:45 Fibrinogen 414.0 mg/dL (238-498) 02/07/20 00:35 Problem List - Problems (1) CML (chronic myelocytic leukemia) Assessment/Plan: - monitor CBC Appreciate Oncology consult Monitor vitals Code(s): C92.10 - CHRONIC MYELOID LEUK, BCR/ABL-POSITIVE, NOT ACHIEVE REMIS (2) Splenic infarct Assessment/Plan: CTAP- splenic infarcts acute vs subacute, biliary tract dilatation, remainder of exam no obvious interval change Awaiting INR/PTT studies on Heparin Protocol Morphine oncology on board Code(s): D73.5 - INFARCTION OF SPLEEN (3) Anemia Assessment/Plan: Will transfuse Appreciate Hematology consult Monitor CBC Monitor vitals Code(s): D64.9 - ANEMIA, UNSPECIFIED (4) HTN (hypertension) Assessment/Plan: Vital Signs Period Temp Pulse Resp BP Sys/Teague Pulse Ox Last 24 Hr 97.8 F-99.4 F 68-75 16-20 87-132/40-62 91-95 Code(s): I10 - ESSENTIAL (PRIMARY) HYPERTENSION (5) COPD (chronic obstructive pulmonary disease) Code(s): J44.9 - CHRONIC OBSTRUCTIVE PULMONARY DISEASE, UNSPECIFIED (6) Chronic pain of multiple joints Assessment/Plan: pain control Code(s): M25.50 - PAIN IN UNSPECIFIED JOINT; G89.29 - OTHER CHRONIC PAIN (7) Chest pain Assessment/Plan: Serial Enzymes neg Chest CTA reviewed- neg PE, bibasilar opacities likely atelectasis, less likely infiltrates, chronic multilevel thoracolumbar vertebral body compression fractures EKG reviewed- NSR no ST or TWI Appreciate Cardiology consult Code(s): R07.9 - CHEST PAIN, UNSPECIFIED Qualifiers: Chest pain type: intercostal pain Qualified Code(s): R07.82 - Intercostal pain
[2020-02-10] MEDS: DEXTROSE 5%-NORMAL SALINE 1,000 ML IV SCH (09:22)
[2020-02-10] MEDS: HEPARIN NA (PORCINE) 5,000 UNITS/ML 1ML VIAL IVPUSH PRN ×2 (09:55→18:47)
[2020-02-10] MEDS: LOSARTAN POTASSIUM 50 MG TABLET (FP) PO SCH (09:58)
[2020-02-10] MEDS: GABAPENTIN 400 MG CAPSULE PO SCH ×4 (09:58→21:36)
[2020-02-10] MEDS: ALLOPURINOL 300 MG TABLET (FP) PO SCH (09:58)
[2020-02-10] MEDS: ASPIRIN 81 MG CHEWABLE TABLETS PO SCH (09:58)
[2020-02-10] MEDS: PANTOPRAZOLE SODIUM 40 MG VIAL IVPUSH SCH (09:58)
[2020-02-10] MEDS: amLODIPine BESYLATE 10 MG TABLET (FP) PO SCH (09:58)
[2020-02-10] MEDS: POLYETHYLENE GLYCOL 3350 119 GM BTL PO SCH ×3 (09:59→21:40)
[2020-02-10] MEDS: FUROSEMIDE 20 MG TABLET (FP) PO SCH (09:59)
[2020-02-10] MEDS: NYSTATIN POWDER 100,000 UNITS/GM - 15 GM TOPICAL POWDER TP SCH ×2 (10:00→21:37)
[2020-02-10] MEDS: PRAMIPEXOLE DIHYDROCHLORIDE 0.125 MG TABLET PO SCH ×2 (10:00→21:36)
--- NOTE | 2020-02-10 13:00 | CONSULT ---
Consult Consult Specialty:: Physiatry consult Dr Perez for Dr Eddy - History of Present Illness Chief Complaint: pain all over History of Present Illness: This is a 74 year old woman with a medical history of chronic pain syndrome, MS, CVA, depression, HTN, COPD, asthma, lung cancer 2012 s/p R lobectomy, GERD, s/p cholecystectomy, s/p hysterectomy, renal insufficiency, CML (last chemo 06/2019, discontinued 2/2 side effects), DM, hypothyroidism, fibromyalgia, diffuse OA/ RA , who presented to the ED 02/06/2020 with R chest pain, abdominal pain, LBP, and RLE swelling x3 days. CTA chest and CT A/P 02/06/2020 was negative for PE, and showed bibasilar opacity (possibly infiltrates), RML nodules, and chronic multilevel thoracolumbar compression fx with chronic R rib fx; acute to subacute splenic infarcts was also noted. CT head showed no acute pathology. Heme-Onc was consulted for CML; heparin was started. Cards was consulted for CP, who felt it was musculoskeletal in nature with low suspicion for ACS. Endo was consulted as well. Transfusion was performed for anemia. she was not seen by PT. Physiatry is being consulted for further recommendations. - Past Medical History [employer]: Yes: CVA, 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 Cardio/Vascular: Yes: HTN Pulmonary: Yes: Asthma, Cancer, COPD Gastrointestinal: Yes: GERD (using walker at home ) Renal/: Yes: Renal Inusuff Psych: Yes: Depression Musculoskeletal: Yes: Osteoarthritis, Other (DDD) Rheumatology: Yes: Rheumatoid Arthritis Endocrine: Yes: Diabetes Mellitus, Hypothyroidism Additional Medical History: as in HPI, morbidly obese - Past Surgical History Past Surgical History: Yes: Hysterectomy, Joint Replacement, Cholecystectomy - Alcohol/Substance Use Hx Alcohol Use: No History of Substance Use: reports: None - Smoking History Smoking history: Former smoker Have you smoked in the past 12 months: No Aproximately how many cigarettes per day: 0 If you are a former smoker, when did you quit?: 30 years ago - Social History Usual Living Arrangement: Assisted Living (alone in assisted living facility) ADL: Support Services ([employer]; Independent in ADLs with [employer]) 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 Travel: No Home Medications - Allergies Allergies/Adverse Reactions: Allergies Allergy/AdvReac Type Severity Reaction Status Date / Time Sulfa (Sulfonamide Allergy Severe Hives Verified 02/06/20 11:43 Antibiotics) - Home Medications Home Medications: Ambulatory Orders Acetaminophen 650 mg PO PRN 04/20/19 Amlodipine Besylate 10 mg PO DAILY 04/20/19 Clonidine HCl 0.1 mg PO DAILY 04/20/19 Losartan Potassium 50 mg PO DAILY 04/20/19 Melatonin 5 mg PO HS 04/20/19 Metoprolol Succinate [Toprol Xl] 50 mg PO DAILY 04/20/19 Interferon Beta-1A [Avonex Pen] 0.5 ml IM DAILY 06/20/19 Multivit-Min/Iron/Folic/Lutein [Centrum Silver Women Tablet] 1 each PO DAILY 06/20/19 Albuterol 0.083% Nebulizer Franca [Ventolin 0.083% Nebulizer Soln -] 1 amp NEB QID PRN amp 06/27/19 Ipratropium 0.02% Nebulizer [Atrovent 0.02% Nebulizer -] 1 amp NEB RQID PRN amp 06/27/19 Mirtazapine [Remeron -] 15 mg PO HS #30 tablet 06/27/19 Pramipexole Dihydrochloride [Mirapex -] 0.25 mg PO BID #60 tablet 06/27/19 Omeprazole 20 mg PO DAILY #30 cap.sr 10/16/19 hydrOXYzine PAMOATE [Vistaril -] 25 mg PO TID PRN #90 capsule 10/16/19 Gabapentin 400 mg PO QID #120 capsule 12/23/19 Hydrocodone/Acetaminophen [Melba 10-325 Tablet] 1 each PO QID PRN #120 tablet MDD 4 01/13/20 Family Medical History Family History: Unremarkable Review of Systems Findings/Remarks: Denies fevers, chills, changes in vision/ hearing/ mood, nausea, vomiting, dysuria. Notes musculoskeletal chest pain, SOB, abdominal discomfort, B hand/ foot paresthesias, diffuse joint/ bone pain. Physical Exam Vital Signs: Vital Signs Temperature 98.4 F 02/10/20 09:00 Pulse Rate 71 02/10/20 09:00 Respiratory Rate 18 02/10/20 09:00 Blood Pressure 132/59 L 02/10/20 09:00 O2 Sat by Pulse Oximetry (%) 95 02/10/20 09:00 Musculoskeletal: Yes: Other (calm elderly AAF sitting in bed NAD at rest, AAO x3; declines BUE/ BLE ROM/ MMT although at least 4-/5 BUE; no BLE pitting edema, diffuse BLE tenderness to palpation) Labs: CBC, BMP 02/10/20 05:38 02/09/20 06:33 Imaging - Results Cat Scan: Report Reviewed (as per HPI) Assessment/Plan Impression: 1) Deficits mobility/ ADLs 2) Deconditioning 3) Gait abnormality 4) CML 5) Splenic infarcts 6) Anemia s/p transfusion 7) High ptl/ WBC 8) Chronic multilevel thoracolumbar compression fx with chronic R rib fx 9) Chronic pain syndrome 10) MS 11) hx CVA 12) Depression 13) HTN 14) COPD, asthma, lung cancer 2012 s/p R lobectomy 15) GERD 16) s/p cholecystectomy 17) s/p hysterectomy 18) Renal insufficiency 19) DM 20) Hypothyroidism 21) Fibromyalgia 22) Diffuse OA/ RA 23) Obesity 24) Up to date flu shot/ pneumovax Recommendations: 1) Trial PT for functional mobility- pt poorly tolerates ROM 2) Falls, safety precautions 3) Cardiopulmonary precautions 4) Diabetic precautions 5) Declines both heat and ice for bone/ joint pain 6) No TLSO brace as could exacerbate rib pain; patient also refuses 7) DVT ppx: on hep 8) Skin protection: float heels, q2 hour turning 9) Denies constipation on current bowel regimen 10) Continue plan per primary team 11) Continue plan per Heme-Onc 12) Agree with Palliative consult 13) Discharge planning: given current level of pain and function, she would benefit from inpatient rehabilitation once medically stable and pain controlled. Thank you for this referral.
--- NOTE | 2020-02-10 13:10 | PN ---
Progress Note (short form) - Note Progress Note: s: no cp sob palps dizzy Current Medications Generic Name Dose Route Start Last Admin Trade Name Freq PRN Reason Stop Dose Admin Allopurinol 300 mg 02/08/20 10:00 02/10/20 09:58 Zyloprim - PO 300 mg DAILY ROSALIE Administration Amlodipine Besylate 10 mg 02/08/20 10:00 02/10/20 09:58 Norvasc - PO 10 mg DAILY ROSALIE Administration Aspirin 81 mg 02/08/20 10:00 02/10/20 09:58 Asa - PO 81 mg DAILY ROSALIE Administration Furosemide 20 mg 02/08/20 10:00 02/10/20 09:59 Lasix - PO 20 mg DAILY ROSALIE Administration Gabapentin 400 mg 02/08/20 10:00 02/10/20 09:58 Neurontin - PO 400 mg QID ROSALIE Administration Heparin Sodium (Porcine) 1,000 unit 02/07/20 22:28 02/10/20 09:55 Heparin - IVPUSH 1,000 unit PRN PRN Administration Heparin Heparin Sodium (Porcine) 5,000 unit 02/07/20 22:28 Heparin - IVPUSH PRN PRN Heparin Hydromorphone HCl 1 mg 02/07/20 22:28 02/10/20 04:29 Dilaudid Vial - IVPB 1 mg Q4H PRN Administration PAIN LEVEL 7 - 10 Hydroxyurea 1,000 mg 02/07/20 18:00 02/10/20 06:44 Hydrea - PO 1,000 mg BID@0600,1800 ROSALIE Administration Hydroxyzine Pamoate 25 mg 02/07/20 09:53 02/08/20 10:10 Vistaril - PO 25 mg Q6H PRN Administration FOR ITCHING Heparin Sodium/Dextrose 25,000 units in 500 mls @ 20 mls/hr 02/07/20 22:28 02/10/20 09:56 Heparin Infusion - IVPB 1,100 units/hr TITR ROSALIE 22 mls/hr Titration Protocol 1,000 UNITS/HR Dextrose/Sodium Chloride 1,000 mls @ 75 mls/hr 02/07/20 22:28 02/10/20 09:22 D5-Ns - IV 75 mls/hr ASDIR ROSALIE Administration Losartan Potassium 100 mg 02/08/20 10:00 02/10/20 09:58 Cozaar - PO 100 mg DAILY ROSALIE Administration Morphine Sulfate 4 mg 02/07/20 22:28 02/10/20 07:58 Morphine Sulfate IVPUSH 4 mg Q6H PRN Administration PAIN LEVEL 6-10 Avonex (Interferon 1 each 02/12/20 10:00 Beta-1a) 30mcg/0.5 IM Ml Th@1000 ROSALIE Nystatin 1 applic 02/09/20 22:00 02/10/20 10:00 Nystop Powder - TP 1 applic BID ROSALIE Administration Ondansetron HCl 4 mg 02/07/20 22:28 Zofran Injection IVPUSH Q6H PRN NAUSEA AND/OR VOMITING Oxycodone HCl 10 mg 02/07/20 22:28 02/08/20 23:15 Roxicodone - PO 10 mg Q6H PRN Administration PAIN LEVEL 6-10 Pantoprazole Sodium 40 mg 02/08/20 10:00 02/10/20 09:58 Protonix Iv IVPUSH 40 mg DAILY ROSALIE Administration Polyethylene Glycol 17 gm 02/09/20 22:00 02/10/20 09:59 Miralax (For Daily Use) - PO 17 gm BID ROSALIE Administration Pramipexole Dihydrochloride 0.125 mg 02/07/20 10:00 02/10/20 10:00 Mirapex - PO 0.125 mg BID ROSALIE Administration Vital Signs Period Temp Pulse Resp BP Sys/Teague Pulse Ox Last 24 Hr 98.1 F-99 F 68-73 18-20 128-142/52-64 94-96 Constitutional: Yes: No Distress, Calm Eyes: Yes: Conjunctiva Clear Respiratory: Yes: CTA Bilaterally Gastrointestinal: Yes: Soft, Abdomen, Obese (NT) JVD: No Carotid Bruit: No PMI: Non-Displaced Heart Sounds: Yes: S1, S2 (RRR) Edema: No Neurological: Yes: Alert, Oriented no jaundice diaphoresis not agitated tele: sinus nsr no acute ST changes Echo: Other (echo 03/2018: nl lv/rv, no sig valve path) Assessment/Plan IMP: CML with marked thrombocytosis and splenic infarcts Atypical CP History of CVA Chronic HTN Multiple comorbidities REC: 1. CML/thrombocytosis/splenic infarcts: -On hydroxyurea as per heme, further management as per heme -tele shows sr, benign 2. Atypical CP: -TnI negative x2, ECG without ischemic changes, CTA negative for PE; low suspi cion for ACS. Likely MSK 3. History of CVA: -stable -On heparin gtt for possible hyperviscosity syndrome -On tele to r/o occult PAF 4. HTN: -Stable, continue home meds
[2020-02-10] MEDS ORDERED: PT OWN MED DRAWER 7, Y5N ONE ×2 (14:47→20:29)
--- NOTE | 2020-02-10 15:18 | PN ---
Physical Exam: SUBJECTIVE: Patient seen and examined. Patient reports feeling tired and generalized pain. OBJECTIVE: Vital Signs Temperature 98.4 F 02/10/20 09:00 Pulse Rate 71 02/10/20 09:00 Respiratory Rate 18 02/10/20 09:00 Blood Pressure 132/59 L 02/10/20 09:00 O2 Sat by Pulse Oximetry (%) 95 02/10/20 09:00 GENERAL: The patient is awake, alert, and fully oriented ENT: dry mucous membranes. NECK: supple. LUNGS: decreased breath sounds bilateral bases HEART: Regular rate and rhythm, S1, S2 ABDOMEN: Soft, +LUQ/LLQ tenderness, nondistended, normoactive bowel sounds. EXTREMITIES: 2+ pulses, warm, well-perfused, no edema. SKIN: Warm, dry, normal turgor Laboratory Results - last 24 hr 02/10/20 02/10/20 02/10/20 05:38 05:38 06:00 WBC 83.2 H* RBC 3.27 L Hgb 8.4 L Hct 26.7 L D MCV 81.5 MCH 25.6 L MCHC 31.4 L RDW 20.3 H Plt Count 1400 H MPV 8.1 PTT (Actin FS) 41.7 H Uric Acid 5.4 LD Total 731 H Active Medications Generic Name Dose Route Start Last Admin Trade Name Freq PRN Reason Stop Dose Admin Allopurinol 300 mg 02/08/20 10:00 02/10/20 09:58 Zyloprim - PO 300 mg DAILY ROSALIE Administration Amlodipine Besylate 10 mg 02/08/20 10:00 02/10/20 09:58 Norvasc - PO 10 mg DAILY ROSALIE Administration Aspirin 81 mg 02/08/20 10:00 02/10/20 09:58 Asa - PO 81 mg DAILY ROSALIE Administration Furosemide 20 mg 02/08/20 10:00 02/10/20 09:59 Lasix - PO 20 mg DAILY ROSALIE Administration Gabapentin 400 mg 02/08/20 10:00 02/10/20 09:58 Neurontin - PO 400 mg QID ROSALIE Administration Heparin Sodium (Porcine) 1,000 unit 02/07/20 22:28 02/10/20 09:55 Heparin - IVPUSH 1,000 unit PRN PRN Administration Heparin Heparin Sodium (Porcine) 5,000 unit 02/07/20 22:28 Heparin - IVPUSH PRN PRN Heparin Hydromorphone HCl 1 mg 02/07/20 22:28 02/10/20 04:29 Dilaudid Vial - IVPB 1 mg Q4H PRN Administration PAIN LEVEL 7 - 10 Hydroxyurea 1,000 mg 02/07/20 18:00 02/10/20 06:44 Hydrea - PO 1,000 mg BID@0600,1800 ROSALIE Administration Hydroxyzine Pamoate 25 mg 02/07/20 09:53 02/08/20 10:10 Vistaril - PO 25 mg Q6H PRN Administration FOR ITCHING Heparin Sodium/Dextrose 25,000 units in 500 mls @ 20 mls/hr 02/07/20 22:28 02/10/20 09:56 Heparin Infusion - IVPB 1,100 units/hr TITR ROSALIE 22 mls/hr Titration Protocol 1,000 UNITS/HR Dextrose/Sodium Chloride 1,000 mls @ 75 mls/hr 02/07/20 22:28 02/10/20 09:22 D5-Ns - IV 75 mls/hr ASDIR ROSALIE Administration Losartan Potassium 100 mg 02/08/20 10:00 02/10/20 09:58 Cozaar - PO 100 mg DAILY ROSALIE Administration Morphine Sulfate 4 mg 02/07/20 22:28 02/10/20 13:56 Morphine Sulfate IVPUSH 4 mg Q6H PRN Administration PAIN LEVEL 6-10 Avonex (Interferon 1 each 02/12/20 10:00 Beta-1a) 30mcg/0.5 IM Ml Th@1000 ROSALIE Nystatin 1 applic 02/09/20 22:00 02/10/20 10:00 Nystop Powder - TP 1 applic BID ROSALIE Administration Ondansetron HCl 4 mg 02/07/20 22:28 Zofran Injection IVPUSH Q6H PRN NAUSEA AND/OR VOMITING Oxycodone HCl 10 mg 02/07/20 22:28 02/08/20 23:15 Roxicodone - PO 10 mg Q6H PRN Administration PAIN LEVEL 6-10 Pantoprazole Sodium 40 mg 02/08/20 10:00 02/10/20 09:58 Protonix Iv IVPUSH 40 mg DAILY ROSALIE Administration Polyethylene Glycol 17 gm 02/09/20 22:00 02/10/20 09:59 Miralax (For Daily Use) - PO 17 gm BID ROSALIE Administration Pramipexole Dihydrochloride 0.125 mg 02/07/20 10:00 02/10/20 10:00 Mirapex - PO 0.125 mg BID ROSALIE Administration ASSESSMENT/PLAN: Patient is a 74 y/o female from [facility] with a significant past medical history of: CML (last chemotherapy 8 months ago, d/c- side effects), Chronic Pain Syndrome, HTN, Renal Insufficiency, COPD (O2, prn), CVA, MS, Fibromyalgia, OA. Who presents to the ED with right sided chest pain, abdominal, lumbar pain, right leg swelling for 3 days. #Neutrophilia in setting of CML #Thrombocytosis #Splenic infacts -Known CML, with history of poor compliance with Imatinib, last reported treatment 8 months ago -Hydroxyurea 1000mg bid started 02/06 -Allopurinol 300mg daily, high risk for tumor lysis -on heparin gtt for splenic infarcts. -In setting of thrombocytosis, acquired vwd possible, increasing bleeding risk -will order aVWD Ag percentage and activity , as well as Factor VIII -monitor cbc, bmp, uric acid, LDH daily -pain control as per primary team Visit type - Emergency Visit Emergency Visit: Yes ED Registration Date: 02/06/20 Care time: The patient presented to the Emergency Department on the above date and was hospitalized for further evaluation of their emergent condition. - New Patient This patient is new to me today: No - Critical Care Critical Care patient: No - Medication Review Med list reviewed for High Risk Meds patients 65 and older: Yes ATTENDING PHYSICIAN STATEMENT I saw and evaluated the patient. I reviewed the resident's note and discussed the case with the resident. I agree with the resident's findings and plan as documented. SUBJECTIVE: OBJECTIVE: ASSESSMENT AND PLAN:
[2020-02-10] MEDS: oxyCODONE HCL 5 MG TABLET PO PRN (16:14)
--- NOTE | 2020-02-10 17:29 | PN ---
Teaching Attending Note Name of Resident: Avelina Cooper ATTENDING PHYSICIAN STATEMENT I saw and evaluated the patient. I reviewed the resident's note and discussed the case with the resident. I agree with the resident's findings and plan as documented. ASSESSMENT AND PLAN: 74 y/o lady from [facility] with a significant past medical history of: CML (last chemotherapy 8 months ago, d/c- side effects), Chronic Pain Syndrome, HTN, Renal Insufficiency, COPD (O2, prn), CVA, MS, Fibromyalgia, OA. Presented to ED with right sided chest pain, abdominal, lumbar pain, right leg swelling for 3 days. Recommend: 1) CML. Possibly accelerated phase (Plts > 1 million). Refusing imatinib but agreable to Dasatinib. Hydrea 1 gram BID. 2) Allopurinol 300 mg daily. G6PD ordered, although UA low it may increase and may need rasburicase. 3) Heparin drip for splenic infarcts. 4) Ordered VWF, ristocetin cofactor activity and Factor VIII to r/o aVWD. 5) Daily CBC/Diff, CMP, UA, LDH 6) Rest per Dr. Cooper note
[2020-02-10] MEDS: HEPARIN INFUSION - 25,000 UNITS/500 ML INFUS.BAG IVPB SCH ×2 (18:47→23:00)
[2020-02-11] MEDS: DEXTROSE 5%-NORMAL SALINE 1,000 ML IV SCH ×3 (01:00→23:50)
[2020-02-11] MEDS: HYDROXYUREA 500 MG CAPSULE PO SCH ×2 (05:43→17:35)
[2020-02-11] MEDS: morphine SULFATE 4 MG/ML VIAL IVPUSH PRN ×2 (05:43→17:40)
[2020-02-11 07:06] LABS: HEMATOCRIT 26.8 % (32.4-45.2); HEMOGLOBIN 8.4 GM/dL (10.7-15.3); MCH 25.6 pg (25.7-33.7); MCHC 31.5 g/dl (32.0-36.0); MEAN CELL VOLUME 81.3 fl (80-96); MEAN PLT VOLUME 8.2 fl (7.5-11.1); RDW 20.6 % (11.6-15.6)
[2020-02-11 07:13] LABS: PLATELET COUNT 1422 K/MM3 (134-434); WHITE BLOOD COUNT 76.1 K/mm3 (4.0-10.0)
--- NOTE | 2020-02-11 09:28 | PN ---
Progress Note, Physician - Current Medication List Current Medications: Active Medications Allopurinol (Zyloprim -) 300 mg PO DAILY [facility] Last Admin: 02/10/20 09:58 Dose: 300 mg Documented by: Amlodipine Besylate (Norvasc -) 10 mg PO DAILY [facility] Last Admin: 02/10/20 09:58 Dose: 10 mg Documented by: Aspirin (Asa -) 81 mg PO DAILY [facility] Last Admin: 02/10/20 09:58 Dose: 81 mg Documented by: Furosemide (Lasix -) 20 mg PO DAILY [facility] Last Admin: 02/10/20 09:59 Dose: 20 mg Documented by: Gabapentin (Neurontin -) 400 mg PO QID [facility] Last Admin: 02/10/20 21:36 Dose: 400 mg Documented by: Heparin Sodium (Porcine) (Heparin -) 1,000 unit IVPUSH PRN PRN PRN Reason: Heparin Last Admin: 02/10/20 18:47 Dose: 1,000 unit Documented by: Heparin Sodium (Porcine) (Heparin -) 5,000 unit IVPUSH PRN PRN PRN Reason: Heparin Hydromorphone HCl (Dilaudid Vial -) 1 mg IVPB Q4H PRN PRN Reason: PAIN LEVEL 7 - 10 Last Admin: 02/10/20 04:29 Dose: 1 mg Documented by: Hydroxyurea (Hydrea -) 1,000 mg PO BID@0600,1800 [facility] Last Admin: 02/11/20 05:43 Dose: 1,000 mg Documented by: Hydroxyzine Pamoate (Vistaril -) 25 mg PO Q6H PRN PRN Reason: FOR ITCHING Last Admin: 02/08/20 10:10 Dose: 25 mg Documented by: Heparin Sodium/Dextrose (Heparin Infusion -) 25,000 units in 500 mls @ 20 mls/hr IVPB TITR [facility]; Protocol Last Admin: 02/10/20 23:00 Dose: Not Given Documented by: Dextrose/Sodium Chloride (D5-Ns -) 1,000 mls @ 75 mls/hr IV ASDIR [facility] Last Admin: 02/11/20 01:00 Dose: 75 mls/hr Documented by: Losartan Potassium (Cozaar -) 100 mg PO DAILY [facility] Last Admin: 02/10/20 09:58 Dose: 100 mg Documented by: Morphine Sulfate (Morphine Sulfate) 4 mg IVPUSH Q6H PRN PRN Reason: PAIN LEVEL 6-10 Last Admin: 02/11/20 05:43 Dose: 4 mg Documented by: Avonex (Interferon Beta-1a) 30mcg/0.5 Ml 1 each IM Th@1000 [facility] Nystatin (Nystop Powder -) 1 applic TP BID [facility] Last Admin: 02/10/20 21:37 Dose: 1 applic Documented by: Ondansetron HCl (Zofran Injection) 4 mg IVPUSH Q6H PRN PRN Reason: NAUSEA AND/OR VOMITING Oxycodone HCl (Roxicodone -) 10 mg PO Q6H PRN PRN Reason: PAIN LEVEL 6-10 Last Admin: 02/10/20 16:14 Dose: 10 mg Documented by: Pantoprazole Sodium (Protonix Iv) 40 mg IVPUSH DAILY [facility] Last Admin: 02/10/20 09:58 Dose: 40 mg Documented by: Polyethylene Glycol (Miralax (For Daily Use) -) 17 gm PO BID [facility] Last Admin: 02/10/20 21:40 Dose: Not Given Documented by: Pramipexole Dihydrochloride (Mirapex -) 0.125 mg PO BID [facility] Last Admin: 02/10/20 21:36 Dose: 0.125 mg Documented by: - Objective Vital Signs: Vital Signs Temperature 99.2 F 02/11/20 06:00 Pulse Rate 78 02/11/20 06:00 Respiratory Rate 18 02/11/20 06:00 Blood Pressure 136/64 02/11/20 06:00 O2 Sat by Pulse Oximetry (%) 96 02/11/20 06:00 Cardiovascular: Yes: S1, S2 Respiratory: Yes: Regular, CTA Bilaterally Gastrointestinal: Yes: Normal Bowel Sounds, Soft Labs: CBC, BMP 02/11/20 05:18 02/09/20 06:33 INR, PTT INR 1.16 (0.83-1.09) H 02/07/20 00:45 Fibrinogen 414.0 mg/dL (238-498) 02/07/20 00:35 Problem List - Problems (1) CML (chronic myelocytic leukemia) Assessment/Plan: - monitor CBC Appreciate Oncology consult Monitor vitals RX PER ONCOLOGY Code(s): C92.10 - CHRONIC MYELOID LEUK, BCR/ABL-POSITIVE, NOT ACHIEVE REMIS (2) Splenic infarct Assessment/Plan: CTAP- splenic infarcts acute vs subacute, biliary tract dilatation, remainder of exam no obvious interval change on Heparin Protocol--to lovenox Morphine oncology on board Code(s): D73.5 - INFARCTION OF SPLEEN (3) Anemia Assessment/Plan: Will transfuse Appreciate Hematology consult Monitor CBC Monitor vitals Code(s): D64.9 - ANEMIA, UNSPECIFIED (4) HTN (hypertension) Assessment/Plan: Vital Signs Period Temp Pulse Resp BP Sys/Teague Pulse Ox Last 24 Hr 97.8 F-99.4 F 68-75 16-20 87-132/40-62 91-95 Code(s): I10 - ESSENTIAL (PRIMARY) HYPERTENSION (5) COPD (chronic obstructive pulmonary disease) Code(s): J44.9 - CHRONIC OBSTRUCTIVE PULMONARY DISEASE, UNSPECIFIED (6) Chronic pain of multiple joints Assessment/Plan: pain control Code(s): M25.50 - PAIN IN UNSPECIFIED JOINT; G89.29 - OTHER CHRONIC PAIN (7) Chest pain Assessment/Plan: Serial Enzymes neg Chest CTA reviewed- neg PE, bibasilar opacities likely atelectasis, less likely infiltrates, chronic multilevel thoracolumbar vertebral body compression fractures EKG reviewed- NSR no ST or TWI Appreciate Cardiology consult Code(s): R07.9 - CHEST PAIN, UNSPECIFIED Qualifiers: Chest pain type: intercostal pain Qualified Code(s): R07.82 - Intercostal pain Assessment/Plan dnr and dni palliative care consult
[2020-02-11] MEDS: FUROSEMIDE 20 MG TABLET (FP) PO SCH (10:06)
[2020-02-11] MEDS: POLYETHYLENE GLYCOL 3350 119 GM BTL PO SCH ×2 (10:06→22:07)
[2020-02-11] MEDS: ASPIRIN 81 MG CHEWABLE TABLETS PO SCH (10:06)
[2020-02-11] MEDS: ALLOPURINOL 300 MG TABLET (FP) PO SCH (10:06)
[2020-02-11] MEDS: LOSARTAN POTASSIUM 50 MG TABLET (FP) PO SCH (10:06)
[2020-02-11] MEDS: GABAPENTIN 400 MG CAPSULE PO SCH ×4 (10:06→22:14)
[2020-02-11] MEDS: amLODIPine BESYLATE 10 MG TABLET (FP) PO SCH (10:06)
[2020-02-11] MEDS: PANTOPRAZOLE SODIUM 40 MG VIAL IVPUSH SCH (10:07)
[2020-02-11] MEDS: PRAMIPEXOLE DIHYDROCHLORIDE 0.125 MG TABLET PO SCH ×2 (10:07→22:13)
[2020-02-11] MEDS: NYSTATIN POWDER 100,000 UNITS/GM - 15 GM TOPICAL POWDER TP SCH ×2 (10:07→22:14)
[2020-02-11] MEDS: morphine SO4 SUSTAINED ACTING 30 MG TABLET.SA PO SCH ×2 (10:24→22:13)
[2020-02-11] MEDS: ENOXAPARIN NA (PORCINE) 80 MG/0.8 ML DISP.SYRIN SQ SCH ×2 (12:32→22:18)
--- NOTE | 2020-02-11 12:50 | PN ---
Progress Note (short form) - Note Progress Note: s: no cp sob palps dizzy Current Medications Generic Name Dose Route Start Last Admin Trade Name Freq PRN Reason Stop Dose Admin Allopurinol 300 mg 02/08/20 10:00 02/11/20 10:06 Zyloprim - PO 300 mg DAILY ROSALIE Administration Amlodipine Besylate 10 mg 02/08/20 10:00 02/11/20 10:06 Norvasc - PO 10 mg DAILY ROSALIE Administration Aspirin 81 mg 02/08/20 10:00 02/11/20 10:06 Asa - PO 81 mg DAILY ROSALIE Administration Enoxaparin Sodium 80 mg 02/11/20 12:00 02/11/20 12:32 Lovenox - SQ 80 mg BID ROSALIE Administration Furosemide 20 mg 02/08/20 10:00 02/11/20 10:06 Lasix - PO 20 mg DAILY ROSALIE Administration Gabapentin 400 mg 02/08/20 10:00 02/11/20 10:06 Neurontin - PO 400 mg QID ROSALIE Administration Hydroxyurea 1,000 mg 02/07/20 18:00 02/11/20 05:43 Hydrea - PO 1,000 mg BID@0600,1800 ROSALIE Administration Hydroxyzine Pamoate 25 mg 02/07/20 09:53 02/08/20 10:10 Vistaril - PO 25 mg Q6H PRN Administration FOR ITCHING Dextrose/Sodium Chloride 1,000 mls @ 75 mls/hr 02/07/20 22:28 02/11/20 01:00 D5-Ns - IV 75 mls/hr ASDIR ROSALIE Administration Losartan Potassium 100 mg 02/08/20 10:00 02/11/20 10:06 Cozaar - PO 100 mg DAILY ROSALIE Administration Morphine Sulfate 4 mg 02/07/20 22:28 02/11/20 05:43 Morphine Sulfate IVPUSH 4 mg Q6H PRN Administration PAIN LEVEL 6-10 Morphine Sulfate 30 mg 02/11/20 10:00 02/11/20 10:24 Ms Contin - PO 30 mg BID ROSALIE Administration Avonex (Interferon 1 each 02/12/20 10:00 Beta-1a) 30mcg/0.5 IM Ml Th@1000 [facility]IE Nystatin 1 applic 02/09/20 22:00 02/11/20 10:07 Nystop Powder - TP 1 applic BID ROSALIE Administration Ondansetron HCl 4 mg 02/07/20 22:28 Zofran Injection IVPUSH Q6H PRN NAUSEA AND/OR VOMITING Oxycodone HCl 10 mg 02/07/20 22:28 02/10/20 16:14 Roxicodone - PO 10 mg Q6H PRN Administration PAIN LEVEL 6-10 Pantoprazole Sodium 40 mg 02/08/20 10:00 02/11/20 10:07 Protonix Iv IVPUSH 40 mg DAILY ROSALIE Administration Polyethylene Glycol 17 gm 02/09/20 22:00 02/11/20 10:06 Miralax (For Daily Use) - PO Not Given BID ROSALIE Pramipexole Dihydrochloride 0.125 mg 02/07/20 10:00 02/11/20 10:07 Mirapex - PO 0.125 mg BID ROSALIE Administration Vital Signs Period Temp Pulse Resp BP Sys/Teague Pulse Ox Last 24 Hr 98.0 F-99.6 F 74-84 18-19 128-139/56-92 95-96 Constitutional: Yes: No Distress, Calm Eyes: Yes: Conjunctiva Clear Respiratory: Yes: CTA Bilaterally Gastrointestinal: Yes: Soft, Abdomen, Obese (NT) JVD: No Carotid Bruit: No PMI: Non-Displaced Heart Sounds: Yes: S1, S2 (RRR) Edema: No Neurological: Yes: Alert, Oriented no jaundice diaphoresis not agitated tele: sinus nsr no acute ST changes Echo: Other (echo 03/2018: nl lv/rv, no sig valve path) Assessment/Plan IMP: CML with marked thrombocytosis and splenic infarcts Atypical CP History of CVA Chronic HTN Multiple comorbidities REC: 1. CML/thrombocytosis/splenic infarcts: -On hydroxyurea as per heme, further management as per heme -tele shows sr, benign 2. Atypical CP: -TnI negative x2, ECG without ischemic changes, CTA negative for PE; low suspicion for ACS. Likely MSK 3. History of CVA: -stable -On heparin gtt for possible hyperviscosity syndrome -On tele to r/o occult PAF 4. HTN: -Stable, continue home meds
[2020-02-11] MEDS ORDERED: PT OWN MED DRAWER 7, Y5N ONE (21:11)
--- NOTE | 2020-02-11 22:52 | PN.HO ---
Progress Note (short form) - Note Progress Note: PAtient seen and examined Feels ok AFVSS Cor: RSR, No murmurs, No gallops Lungs: Clear to P&A Abd: Soft, Normal bowel sounds, No organomegaly Ext:No significant edema LAbs/MEds reviewed A/P 74 y/o female from [facility] with a significant past medical history of: CML (was on gleevec stopped several months ago due to gi sideeffects. has not folowed up for last 6-8 months), Chronic Pain Syndrome, HTN, Renal Insufficiency, COPD (O2, prn), CVA, MS, Fibromyalgia, OA. Who presents to the ED with right sided chest pain, abdominal, lumbar pain, right leg swelling for 3 days. #Neutrophilia in setting of CML #Thrombocytosis #Splenic infacts -Known CML, with history of poor compliance with Imatinib, last reported treatment 8 months ago -Hydroxyurea 1000mg bid started 02/06 -Allopurinol 300mg daily, high risk for tumor lysis -on heparin gtt for splenic infarcts. -In setting of thrombocytosis, acquired vwd possible, increasing bleeding risk -will order aVWD Ag percentage and activity , as well as Factor VIII -monitor cbc, bmp, uric acid, LDH daily Patient agreeable to switching to dasatinib monitor for tumor lysis closely
[2020-02-12] MEDS: morphine SULFATE 4 MG/ML VIAL IVPUSH PRN ×2 (01:39→12:32)
[2020-02-12] MEDS: HYDROXYUREA 500 MG CAPSULE PO SCH (06:23)
--- NOTE | 2020-02-12 08:05 | PN ---
Progress Note, Physician - Current Medication List Current Medications: Active Medications Allopurinol (Zyloprim -) 300 mg PO DAILY [facility] Last Admin: 02/11/20 10:06 Dose: 300 mg Documented by: Amlodipine Besylate (Norvasc -) 10 mg PO DAILY [facility] Last Admin: 02/11/20 10:06 Dose: 10 mg Documented by: Aspirin (Asa -) 81 mg PO DAILY [facility] Last Admin: 02/11/20 10:06 Dose: 81 mg Documented by: Enoxaparin Sodium (Lovenox -) 80 mg SQ BID [facility] Last Admin: 02/11/20 22:18 Dose: 80 mg Documented by: Furosemide (Lasix -) 20 mg PO DAILY [facility] Last Admin: 02/11/20 10:06 Dose: 20 mg Documented by: Gabapentin (Neurontin -) 400 mg PO QID [facility] Last Admin: 02/11/20 22:14 Dose: 400 mg Documented by: Hydroxyurea (Hydrea -) 1,000 mg PO BID@0600,1800 [facility] Last Admin: 02/12/20 06:23 Dose: 1,000 mg Documented by: Hydroxyzine Pamoate (Vistaril -) 25 mg PO Q6H PRN PRN Reason: FOR ITCHING Last Admin: 02/08/20 10:10 Dose: 25 mg Documented by: Dextrose/Sodium Chloride (D5-Ns -) 1,000 mls @ 75 mls/hr IV ASDIR [facility] Last Admin: 02/11/20 23:50 Dose: 75 mls/hr Documented by: Losartan Potassium (Cozaar -) 100 mg PO DAILY [facility] Last Admin: 02/11/20 10:06 Dose: 100 mg Documented by: Morphine Sulfate (Morphine Sulfate) 4 mg IVPUSH Q6H PRN PRN Reason: PAIN LEVEL 6-10 Last Admin: 02/12/20 01:39 Dose: 4 mg Documented by: Morphine Sulfate (Ms Contin -) 30 mg PO BID [facility] Last Admin: 02/11/20 22:13 Dose: 30 mg Documented by: Avonex (Interferon Beta-1a) 30mcg/0.5 Ml 1 each IM Th@1000 [facility] Nystatin (Nystop Powder -) 1 applic TP BID [facility] Last Admin: 02/11/20 22:14 Dose: 1 applic Documented by: Ondansetron HCl (Zofran Injection) 4 mg IVPUSH Q6H PRN PRN Reason: NAUSEA AND/OR VOMITING Oxycodone HCl (Roxicodone -) 10 mg PO Q6H PRN PRN Reason: PAIN LEVEL 6-10 Last Admin: 02/10/20 16:14 Dose: 10 mg Documented by: Pantoprazole Sodium (Protonix Iv) 40 mg IVPUSH DAILY [facility] Last Admin: 02/11/20 10:07 Dose: 40 mg Documented by: Polyethylene Glycol (Miralax (For Daily Use) -) 17 gm PO BID [facility] Last Admin: 02/11/20 22:07 Dose: Not Given Documented by: Pramipexole Dihydrochloride (Mirapex -) 0.125 mg PO BID [facility] Last Admin: 02/11/20 22:13 Dose: 0.125 mg Documented by: - Objective Vital Signs: Vital Signs Temperature 98.8 F 02/12/20 06:00 Pulse Rate 65 02/12/20 06:00 Respiratory Rate 18 02/12/20 06:00 Blood Pressure 126/58 L 02/12/20 06:00 O2 Sat by Pulse Oximetry (%) 97 02/12/20 06:00 Cardiovascular: Yes: S1, S2 Respiratory: Yes: Regular, CTA Bilaterally Gastrointestinal: Yes: Normal Bowel Sounds, Soft Labs: CBC, BMP 02/09/20 06:33 INR, PTT INR 1.16 (0.83-1.09) H 02/07/20 00:45 Fibrinogen 414.0 mg/dL (238-498) 02/07/20 00:35 Problem List - Problems (1) CML (chronic myelocytic leukemia) Assessment/Plan: - monitor CBC Appreciate Oncology consult Monitor vitals RX PER ONCOLOGY Code(s): C92.10 - CHRONIC MYELOID LEUK, BCR/ABL-POSITIVE, NOT ACHIEVE REMIS (2) Splenic infarct Assessment/Plan: CTAP- splenic infarcts acute vs subacute, biliary tract dilatation, remainder of exam no obvious interval change on Heparin Protocol--to lovenox Morphine oncology on board Code(s): D73.5 - INFARCTION OF SPLEEN (3) Anemia Assessment/Plan: Will transfuse Appreciate Hematology consult Monitor CBC Monitor vitals Code(s): D64.9 - ANEMIA, UNSPECIFIED (4) HTN (hypertension) Assessment/Plan: Vital Signs Period Temp Pulse Resp BP Sys/Teague Pulse Ox Last 24 Hr 97.8 F-99.4 F 68-75 16-20 87-132/40-62 91-95 Code(s): I10 - ESSENTIAL (PRIMARY) HYPERTENSION (5) COPD (chronic obstructive pulmonary disease) Code(s): J44.9 - CHRONIC OBSTRUCTIVE PULMONARY DISEASE, UNSPECIFIED (6) Chronic pain of multiple joints Assessment/Plan: pain control Code(s): M25.50 - PAIN IN UNSPECIFIED JOINT; G89.29 - OTHER CHRONIC PAIN Assessment/Plan dnr and dni palliative care consult
[2020-02-12 08:50] LABS: HEMATOCRIT 27.6 % (32.4-45.2); HEMOGLOBIN 8.7 GM/dL (10.7-15.3); MCH 25.9 pg (25.7-33.7); MCHC 31.6 g/dl (32.0-36.0); MEAN CELL VOLUME 82.1 fl (80-96); MEAN PLT VOLUME 8.3 fl (7.5-11.1); PLATELET COUNT 1328 K/MM3 (134-434); RBC 3.37 M/mm3 (3.60-5.2); RDW 20.4 % (11.6-15.6)
[2020-02-12] MEDS ORDERED: DRONABINOL 2.5 MG CAPSULE PO SCH (10:00)
[2020-02-12] MEDS ORDERED: DULoxetine HCL 20 MG CAPSULE.DR PO SCH (10:00)
[2020-02-12] MEDS ORDERED: AVONEX 30 MCG/0.5 ML IM SCH (10:00)
[2020-02-12] MEDS: PANTOPRAZOLE SODIUM 40 MG VIAL IVPUSH SCH (10:36)
[2020-02-12] MEDS: amLODIPine BESYLATE 10 MG TABLET (FP) PO SCH (10:36)
[2020-02-12] MEDS: ASPIRIN 81 MG CHEWABLE TABLETS PO SCH (10:36)
[2020-02-12] MEDS: GABAPENTIN 400 MG CAPSULE PO SCH (10:37)
[2020-02-12] MEDS: FUROSEMIDE 20 MG TABLET (FP) PO SCH (10:37)
[2020-02-12] MEDS: morphine SO4 SUSTAINED ACTING 30 MG TABLET.SA PO SCH (10:37)
[2020-02-12] MEDS: ENOXAPARIN NA (PORCINE) 80 MG/0.8 ML DISP.SYRIN SQ SCH (10:38)
[2020-02-12] MEDS: LOSARTAN POTASSIUM 50 MG TABLET (FP) PO SCH (10:38)
[2020-02-12] MEDS: ALLOPURINOL 300 MG TABLET (FP) PO SCH (10:38)
[2020-02-12] MEDS: POLYETHYLENE GLYCOL 3350 119 GM BTL PO SCH (10:39)
[2020-02-12] MEDS: NYSTATIN POWDER 100,000 UNITS/GM - 15 GM TOPICAL POWDER TP SCH (10:39)
[2020-02-12] MEDS ORDERED: PT OWN MED DRAWER 7, Y5N ONE (10:42)
[2020-02-12] MEDS: PRAMIPEXOLE DIHYDROCHLORIDE 0.125 MG TABLET PO SCH (10:44)
--- NOTE | 2020-02-12 11:30 | DS ---
Physical Examination Vital Signs: Vital Signs Temperature 98.8 F 02/12/20 06:00 Pulse Rate 65 02/12/20 06:00 Respiratory Rate 18 02/12/20 06:00 Blood Pressure 126/58 L 02/12/20 06:00 O2 Sat by Pulse Oximetry (%) 98 02/12/20 08:18 Labs: CBC, BMP 02/12/20 06:10 02/12/20 06:10 Discharge Summary Problems reviewed: Yes Reason For Visit: CHRONIC MYELOID LEUKEMIA Current Active Problems Abdominal pain (Acute) CML (chronic myelocytic leukemia) (Acute) Splenic infarct (Acute) Hospital Course: - Problems (1) CML (chronic myelocytic leukemia) Assessment/Plan: - monitor CBC Appreciate Oncology consult Monitor vitals RX PER ONCOLOGY Code(s): C92.10 - CHRONIC MYELOID LEUK, BCR/ABL-POSITIVE, NOT ACHIEVE REMIS (2) Splenic infarct Assessment/Plan: CTAP- splenic infarcts acute vs subacute, biliary tract dilatation, remainder of exam no obvious interval change on Heparin Protocol--to lovenox Morphine oncology on board Code(s): D73.5 - INFARCTION OF SPLEEN (3) Anemia Assessment/Plan: s/p transfusion Appreciate Hematology consult Monitor CBC Monitor vitals Code(s): D64.9 - ANEMIA, UNSPECIFIED (4) HTN (hypertension) Assessment/Plan: Vital Signs Period Temp Pulse Resp BP Sys/Teague Pulse Ox Last 24 Hr 97.8 F-99.4 F 68-75 16-20 87-132/40-62 91-95 Code(s): I10 - ESSENTIAL (PRIMARY) HYPERTENSION (5) COPD (chronic obstructive pulmonary disease) Code(s): J44.9 - CHRONIC OBSTRUCTIVE PULMONARY DISEASE, UNSPECIFIED (6) Chronic pain of multiple joints Assessment/Plan: pain control Code(s): M25.50 - PAIN IN UNSPECIFIED JOINT; G89.29 - OTHER CHRONIC PAIN Assessment/Plan dnr and dni palliative care consult Condition: Guarded - Instructions Referrals: Bran De Leon MD [Primary Care Provider] - - Home Medications Comprehensive Discharge Medication List: Ambulatory Orders Acetaminophen 650 mg PO PRN 04/20/19 Amlodipine Besylate 10 mg PO DAILY 04/20/19 Losartan Potassium 50 mg PO DAILY 04/20/19 Melatonin 5 mg PO HS 04/20/19 Interferon Beta-1A [Avonex Pen] 0.5 ml IM DAILY 06/20/19 Multivit-Min/Iron/Folic/Lutein [Centrum Silver Women Tablet] 1 each PO DAILY 06/20/19 Ipratropium 0.02% Nebulizer [Atrovent 0.02% Nebulizer -] 1 amp NEB RQID PRN amp 06/27/19 Omeprazole 20 mg PO DAILY #30 cap.sr 10/16/19 Gabapentin 400 mg PO QID #120 capsule 12/23/19 Allopurinol [Zyloprim -] 300 mg PO DAILY tablet 02/12/20 Aspirin [ASA -] 81 mg PO DAILY tab.chew 02/12/20 Dronabinol [Marinol -] 2.5 mg PO BIDWM capsule 02/12/20 Duloxetine HCl [Cymbalta -] 20 mg PO DAILY capsule. 02/12/20 Enoxaparin [Lovenox -] 80 mg SQ BID disp.syrin 02/12/20 Furosemide [Lasix -] 20 mg PO DAILY tablet 02/12/20 HYDROmorphone VIAL [Dilaudid Vial -] 1 mg IVPB Q4H PRN ml 02/12/20 Hydroxyurea [Hydrea 500Mg Capsule -] 1,000 mg PO BID@0600,1800 capsule 02/12/20 Morphine *Sr* [MS Contin -] 30 mg PO BID tablet.sa 02/12/20 Nystatin Powder [Nystop Powder -] 1 applic TP BID applic 02/12/20 Ondansetron Injection [Zofran Injection] 4 mg IVPUSH Q6H PRN vial 02/12/20 Polyethylene Glycol 3350 [Miralax 119 gm Btl -] 17 gm PO BID bottle 02/12/20 Pramipexole Dihydrochloride [Mirapex -] 0.125 mg PO BID tablet 02/12/20 hydrOXYzine PAMOATE [Vistaril -] 25 mg PO Q6H PRN capsule 02/12/20 oxyCODONE HCL [Roxicodone -] 10 mg PO Q6H PRN tablet 02/12/20
[2020-02-12 11:44] VITALS: BP 138/71; PULSE 75; TEMP 98.2
--- NOTE | 2020-02-12 12:20 | PN ---
Progress Note (short form) - Note Progress Note: s: no cp sob palps dizzy Current Medications Generic Name Dose Route Start Last Admin Trade Name Freq PRN Reason Stop Dose Admin Allopurinol 300 mg 02/08/20 10:00 02/12/20 10:38 Zyloprim - PO 300 mg DAILY ROSALIE Administration Amlodipine Besylate 10 mg 02/08/20 10:00 02/12/20 10:36 Norvasc - PO 10 mg DAILY ROSALIE Administration Aspirin 81 mg 02/08/20 10:00 02/12/20 10:36 Asa - PO 81 mg DAILY ROSALIE Administration Dronabinol 2.5 mg 02/12/20 10:00 02/12/20 10:47 Marinol - PO 2.5 mg BIDWM ROSALIE Administration Duloxetine HCl 20 mg 02/12/20 10:00 02/12/20 10:44 Cymbalta - PO 20 mg DAILY ROSALIE Administration Enoxaparin Sodium 80 mg 02/11/20 12:00 02/12/20 10:38 Lovenox - SQ 80 mg BID ROSALIE Administration Furosemide 20 mg 02/08/20 10:00 02/12/20 10:37 Lasix - PO 20 mg DAILY ROSALIE Administration Gabapentin 400 mg 02/08/20 10:00 02/12/20 10:37 Neurontin - PO 400 mg QID ROSALIE Administration Hydroxyurea 1,000 mg 02/07/20 18:00 02/12/20 06:23 Hydrea - PO 1,000 mg BID@0600,1800 ROSALIE Administration Hydroxyzine Pamoate 25 mg 02/07/20 09:53 02/08/20 10:10 Vistaril - PO 25 mg Q6H PRN Administration FOR ITCHING Dextrose/Sodium Chloride 1,000 mls @ 75 mls/hr 02/07/20 22:28 02/11/20 23:50 D5-Ns - IV 75 mls/hr ASDIR ROSALIE Administration Losartan Potassium 100 mg 02/08/20 10:00 02/12/20 10:38 Cozaar - PO 100 mg DAILY ROSALIE Administration Morphine Sulfate 4 mg 02/07/20 22:28 02/12/20 01:39 Morphine Sulfate IVPUSH 4 mg Q6H PRN Administration PAIN LEVEL 6-10 Morphine Sulfate 30 mg 02/11/20 10:00 02/12/20 10:37 Ms Contin - PO 30 mg BID ROSALIE Administration Avonex (Interferon 1 each 02/12/20 10:00 02/12/20 11:02 Beta-1a) 30mcg/0.5 IM 1 each Ml Th@1000 ROSALIE Administration Nystatin 1 applic 02/09/20 22:00 02/12/20 10:39 Nystop Powder - TP 1 applic BID ROSALIE Administration Ondansetron HCl 4 mg 02/07/20 22:28 Zofran Injection IVPUSH Q6H PRN NAUSEA AND/OR VOMITING Oxycodone HCl 10 mg 02/07/20 22:28 02/10/20 16:14 Roxicodone - PO 10 mg Q6H PRN Administration PAIN LEVEL 6-10 Pantoprazole Sodium 40 mg 02/08/20 10:00 02/12/20 10:36 Protonix Iv IVPUSH 40 mg DAILY ROSALIE Administration Polyethylene Glycol 17 gm 02/09/20 22:00 02/12/20 10:39 Miralax (For Daily Use) - PO Not Given BID ROSALIE Pramipexole Dihydrochloride 0.125 mg 02/07/20 10:00 02/12/20 10:44 Mirapex - PO 0.125 mg BID ROSALIE Administration Vital Signs Period Temp Pulse Resp BP Sys/Teague Pulse Ox Last 24 Hr 98.2 F-99.3 F 65-75 18-20 115-138/48-71 97-98 Constitutional: Yes: No Distress, Calm Eyes: Yes: Conjunctiva Clear Respiratory: Yes: CTA Bilaterally Gastrointestinal: Yes: Soft, Abdomen, Obese (NT) JVD: No Carotid Bruit: No PMI: Non-Displaced Heart Sounds: Yes: S1, S2 (RRR) Edema: No Neurological: Yes: Alert, Oriented no jaundice diaphoresis not agitated CBC, BMP 02/12/20 06:10 02/12/20 06:10 tele: sinus nsr no acute ST changes Echo: Other (echo 03/2018: nl lv/rv, no sig valve path) Assessment/Plan IMP: CML with marked thrombocytosis and splenic infarcts Atypical CP History of CVA Chronic HTN Multiple comorbidities REC: 1. CML/thrombocytosis/splenic infarcts: -On hydroxyurea as per heme, further management as per heme -tele shows sr, benign 2. Atypical CP: -TnI negative x2, ECG without ischemic changes, CTA negative for PE; low suspicion for ACS. Likely MSK 3. History of CVA: -stable -On heparin gtt for possible hyperviscosity syndrome 4. HTN: -Stable, continue home meds
--- NOTE | 2020-02-12 12:28 | CONSULT ---
Consult Consult Specialty:: Palliative Care Referred by:: Justina Menchaca Reason for Consultation:: Goals of care. pain management - History of Present Illness Chief Complaint: right sided chest pain, abdominal, lumbar pain, right leg swelling for 3 days. History of Present Illness: 74 y/o female from [facility] with a significant past medical history of: CML (was on gleevec stopped several months ago due to gi side effects- did not follow up for last 6-8 months), Chronic Pain Syndrome, HTN, Renal Insufficiency, COPD (O2, prn), CVA, MS, Fibromyalgia, OA. Who was admitted to [facility] 02/06/20 with right sided chest pain, abdominal, lumbar pain, right leg swelling for 3 days. - History Source History Provided By: Patient, Medical Record Limitations to Obtaining History: No Limitations - Past Medical History [employer]OVERST[employer] E[employer] ATT[employer]ER: Yes: CVA, 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 Cardio/Vascular: Yes: HTN Pulmonary: Yes: Asthma, Cancer, COPD Gastrointestinal: Yes: GERD (using walker at home ) Renal/: Yes: Renal Inusuff Psych: Yes: Depression Musculoskeletal: Yes: Osteoarthritis, Other (DDD) Rheumatology: Yes: Rheumatoid Arthritis Endocrine: Yes: Diabetes Mellitus, Hypothyroidism Additional Medical History: as in HPI, morbidly obese - Past Surgical History Past Surgical History: Yes: Hysterectomy, Joint Replacement, Cholecystectomy - Alcohol/Substance Use Hx Alcohol Use: No History of Substance Use: reports: None - Smoking History Smoking history: Former smoker Have you smoked in the past 12 months: No Aproximately how many cigarettes per day: 0 If you are a former smoker, when did you quit?: 30 years ago - Social History Usual Living Arrangement: Assisted Living (alone in assisted living facility) 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: 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; Independent in ADLs with [employer]) 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 Travel: No Home Medications - Allergies Allergies/Adverse Reactions: Allergies Allergy/AdvReac Type Severity Reaction Status Date / Time Sulfa (Sulfonamide Allergy Severe Hives Verified 02/06/20 11:43 Antibiotics) - Home Medications Home Medications: Ambulatory Orders Acetaminophen 650 mg PO PRN 04/20/19 Amlodipine Besylate 10 mg PO DAILY 04/20/19 Losartan Potassium 50 mg PO DAILY 04/20/19 Melatonin 5 mg PO HS 04/20/19 Interferon Beta-1A [Avonex Pen] 0.5 ml IM DAILY 06/20/19 Multivit-Min/Iron/Folic/Lutein [Centrum Silver Women Tablet] 1 each PO DAILY 06/20/19 Ipratropium 0.02% Nebulizer [Atrovent 0.02% Nebulizer -] 1 amp NEB RQID PRN amp 06/27/19 Omeprazole 20 mg PO DAILY #30 cap.sr 10/16/19 Gabapentin 400 mg PO QID #120 capsule 12/23/19 Allopurinol [Zyloprim -] 300 mg PO DAILY tablet 02/12/20 Aspirin [ASA -] 81 mg PO DAILY tab.chew 02/12/20 Dronabinol [Marinol -] 2.5 mg PO BIDWM capsule 02/12/20 Duloxetine HCl [Cymbalta -] 20 mg PO DAILY capsule. 02/12/20 Enoxaparin [Lovenox -] 80 mg SQ BID disp.syrin 02/12/20 Furosemide [Lasix -] 20 mg PO DAILY tablet 02/12/20 HYDROmorphone VIAL [Dilaudid Vial -] 1 mg IVPB Q4H PRN ml 02/12/20 Hydroxyurea [Hydrea 500Mg Capsule -] 1,000 mg PO BID@0600,1800 capsule 02/12/20 Morphine *Sr* [MS Contin -] 30 mg PO BID tablet.sa 02/12/20 Nystatin Powder [Nystop Powder -] 1 applic TP BID applic 02/12/20 Ondansetron Injection [Zofran Injection] 4 mg IVPUSH Q6H PRN vial 02/12/20 Polyethylene Glycol 3350 [Miralax 119 gm Btl -] 17 gm PO BID bottle 02/12/20 Pramipexole Dihydrochloride [Mirapex -] 0.125 mg PO BID tablet 02/12/20 hydrOXYzine PAMOATE [Vistaril -] 25 mg PO Q6H PRN capsule 02/12/20 oxyCODONE HCL [Roxicodone -] 10 mg PO Q6H PRN tablet 02/12/20 Family Medical History Family History: Unremarkable Review of Systems - Review of Systems Constitutional: reports: Malaise Musculoskeletal: reports: Back Pain, Joint Pain, Muscle Weakness Physical Exam Vital Signs: Vital Signs Temperature 98.2 F 02/12/20 10:00 Pulse Rate 75 02/12/20 10:00 Respiratory Rate 20 02/12/20 10:00 Blood Pressure 138/71 02/12/20 10:00 O2 Sat by Pulse Oximetry (%) 97 02/12/20 10:00 Constitutional: Yes: Well Nourished, Anxious, Obese Eyes: Yes: Conjunctiva Clear, EOM Intact HENT: Yes: Atraumatic, Normocephalic Neck: Yes: Supple Cardiovascular: Yes: Regular Rate and Rhythm Respiratory: Yes: Regular, CTA Bilaterally Gastrointestinal: Yes: Normal Bowel Sounds, Soft Musculoskeletal: Yes: Back Pain Neurological: Yes: Alert, Oriented Labs: CBC, BMP 02/12/20 06:10 02/12/20 06:10 Imaging - Results Cat Scan: Report Reviewed Problem List - Problems (1) Abdominal pain Code(s): R10.9 - UNSPECIFIED ABDOMINAL PAIN Qualifiers: Abdominal location: right lower quadrant Qualified Code(s): R10.31 - Right lower quadrant pain (2) CML (chronic myelocytic leukemia) Code(s): C92.10 - CHRONIC MYELOID LEUK, BCR/ABL-POSITIVE, NOT ACHIEVE REMIS (3) Chronic pain due to neoplasm Code(s): G89.3 - NEOPLASM RELATED PAIN (ACUTE) (CHRONIC) (4) Chronic pain of multiple joints Code(s): M25.50 - PAIN IN UNSPECIFIED JOINT; G89.29 - OTHER CHRONIC PAIN Assessment/Plan 74 y/o female with PMHx of CML (not on Imatinib >6 months, d/c 2/2 GI side effects) MS, fibromyalgia, chronic pain, COPD on O2 PRN, HTN, CKD who presented to [facility] 02/06/20 with right sided chest pain, abd pain and RLE edema x 3 days. CTA ruled out PE but noted to have acute/subacute splenic infarcts. CBC with WBC 110, Hb 8.1, Plt 1298- CML. Started on heparin gtt and hydrea 1000mg BID. Chemotherapy was recommended by Oncology. I had a detailed conversation with the patient who expressed a strong desire for comfort care. " I dont want to fight anymore" She is DNR/DNI She has decided to pursue hospice care and she no longer wants medical inter ventions. Team to set up hospice [place] today. Aggressive pain management is the goal. Patient does not wish for further curative treatment. Vianca for allowing me to participate in the care of this patient. Please call with questions. Allen Cunningham MD [phone] Total time for chart review, examination, conference and coordination of care- 50 minutes.
--- NOTE | 2020-02-12 13:32 | PN.HO ---
Progress Note (short form) - Note Progress Note: 74F CML (not on Imatinib >6 months, d/c 2/2 GI side effects) MS, fibromyalgia, chronic pain, COPD on O2 PRN, HTN, CKD who presented with right sided chest pain, abd pain and RLE edema x 3 days. CTA ruled out PE but noted to have acute/subacute splenic infarcts. CBC remarkable for WBC 110, Hb 8.1, Plt 1298. Started on heparin gtt and hydrea 1000mg BID. Also asked for vwf antigen, ristocetin cofactor activity and factor VIII level to determine risk of bleeding for correction ac therapy for splenic infarcts as she has thrombocytosis. Patient was pending starting second generation TKI as outpt but has decided to pursue hospice care as she no longer wants medical interventions. Team to set up hospice to [place] today.
[2020-02-13 07:07] LABS: RISTOCETIN CO-FACTOR 117 % (50-200); VON WILLEBRAND ANTIGEN 299 % (50-200)
== END 2020-02-12 14:02 | disposition hospice, inpatient (51) | DRG 841 ==
LOC: JER 11:28 → JERBED 16:16 → J8W 02-07 02:00 → J4W 02-07 21:58
PROVIDERS: ADMIT Internal Medicine; ATTEND Family Medicine
DX: C92.10 Chronic myeloid leukemia, BCR/ABL-positive, not having achieved remission (principal); J98.11 Atelectasis; N17.9 Acute kidney failure, unspecified; J44.9 Chronic obstructive pulmonary disease, unspecified; E66.01 Morbid (severe) obesity due to excess calories; K59.00 Constipation, unspecified; Z86.73 Personal history of transient ischemic attack (TIA), and cerebral infarction without residual deficits; M79.7 Fibromyalgia; G89.4 Chronic pain syndrome; E11.9 Type 2 diabetes mellitus without complications; E03.9 Hypothyroidism, unspecified; F32.9 Major depressive disorder, single episode, unspecified; R16.2 Hepatomegaly with splenomegaly, not elsewhere classified; D73.5 Infarction of spleen; Z87.891 Personal history of nicotine dependence; D64.9 Anemia, unspecified; Z79.84 Long term (current) use of oral hypoglycemic drugs; K21.9 Gastro-esophageal reflux disease without esophagitis; M48.02 Spinal stenosis, cervical region; Z66 Do not resuscitate; D47.3 Essential (hemorrhagic) thrombocythemia; R07.89 Other chest pain; Z99.81 Dependence on supplemental oxygen; Z85.118 Personal history of other malignant neoplasm of bronchus and lung; G35 Multiple sclerosis; Z68.33 Body mass index [BMI] 33.0-33.9, adult
CPT/HCPCS: 36415; 36430; 70450-TC; 71275-TC; 74177-TC; 80053; 80061; 81003; 82550; 82955; 83605; 83615; 83690; 83721; 83735; 83880; 84100; 84484; 84550; 85025; 85027; 85240; 85246; 85247; 85384; 85610; 85730; 86850; 86900; 86901; 86922; 87086; 87186; 93005; 93010; 93970-TC; 97116-GP; 97162-GP; 99285-25; J0131; J1644; J8999; P9058; Q9967; U0003